=== PATIENT | female | born 1935 | race Caucasian/White ===

== ENCOUNTER 2017-01-18 14:32 | Inpatient (IN) | payer MEDICARE, OTHER ==
[2017-01-18 16:35] LABS: HEMATOCRIT 41.4 % (36.0-47.0); HEMOGLOBIN 13.8 g/dL (12.0-15.5); MEAN CORPUSCULAR HEMOGLOBIN 29.9 pg (27.0-33.4); MEAN CORPUSCULAR HGB CONC 33.3 g/dL (32.0-36.0); MEAN CORPUSCULAR VOLUME 90 fl (80-97); RED BLOOD COUNT 4.61 10^6/uL (3.72-5.28); RED CELL DISTRIBUTION WIDTH 13.6 % (11.5-14.0); WHITE BLOOD COUNT 13.2 10^3/uL (4.0-10.5)
[2017-01-18 16:50] LABS: ALANINE AMINOTRANSFERASE 19 U/L (9-52); ALBUMIN 3.9 g/dL (3.5-5.0); ALKALINE PHOSPHATASE 80 U/L (38-126); ANION GAP 14 (5-19); ASPARTATE AMINO TRANSFERASE 33 U/L (14-36); BILIRUBIN,DIRECT 0.4 mg/dL (0.0-0.4); BILIRUBIN,TOTAL 1.3 mg/dL (0.2-1.3); BLOOD UREA NITROGEN 23 mg/dL (7-20); CALCIUM 9.7 mg/dL (8.4-10.2); CARBON DIOXIDE 29 mmol/L (22-30); CHLORIDE 98 mmol/L (98-107); GLUCOSE 146 mg/dL (75-110); POTASSIUM 3.7 mmol/L (3.6-5.0); SODIUM 141.3 mmol/L (137-145); TOTAL PROTEIN 7.6 g/dL (6.3-8.2)
--- NOTE | 2017-01-18 18:35 | EKG REPORT ---
SEVERITY:- ABNORMAL ECG - ATRIAL FIBRILLATION, V-RATE 71-113 CONSIDER ANTEROSEPTAL INFARCT : Confirmed by: Hitesh Singh MD 18-Jan-2017 18:33:58
[2017-01-18] MEDS ORDERED: HYDROCODONE/ACETAMINOPHEN 5-325 MG TABLET PO PRN (20:31)
[2017-01-18] MEDS: HYDROCODONE/ACETAMINOPHEN 10-325 MG TABLET PO PRN (20:41)
[2017-01-18] MEDS: LEVOFLOXACIN 750 MG/D5W RTU 750 MG/150 ML RTUPB IV SCH (20:41)
[2017-01-18] MEDS ORDERED: 1/2 NORMAL SALINE 1,000 ML IV PRN (21:55)
[2017-01-18] MEDS ORDERED: HYDROCODONE/ACETAMINOPHEN 10-325 MG TABLET PO SCH (22:00)
[2017-01-19 00:17] LABS: APPEARANCE,URINE SLIGHTLY-CLOUDY; BILIRUBIN,URINE NEGATIVE (NEGATIVE); GLUCOSE, URINE 50 mg/dL (NEGATIVE); KETONES,URINE NEGATIVE (NEGATIVE); LEUKOCYTE ESTERASE,URINE TRACE (NEGATIVE); NITRITE,URINE POSITIVE (NEGATIVE); PROTEIN,URINE 100 mg/dL (NEGATIVE); URINE SPECIFIC GRAVITY 1.024
[2017-01-19] MEDS: HYDROCODONE/ACETAMINOPHEN 10-325 MG TABLET PO PRN ×2 (03:51→14:57)
[2017-01-19] MEDS: LEVOTHYROXINE SODIUM 0.088 MG TABLET PO SCH (06:46)
[2017-01-19] MEDS ORDERED: ENOXAPARIN SODIUM INJ 40 MG/0.4 ML DISP.SYRIN SUBCUT SCH (08:00)
[2017-01-19] MEDS ORDERED: MORPHINE SULFATE 10 MG/ML INJ ONE (09:28)
[2017-01-19] MEDS ORDERED: (PENDING PHARMACY ID) (Alprazolam [Alprazolam] 1 MG) PO SCH (10:00)
[2017-01-19] MEDS ORDERED: (PENDING PHARMACY ID) (Metoprolol Succinate [Toprol Xl 200 Mg Tablet] 200 MG) PO SCH (10:00)
[2017-01-19] MEDS: ENOXAPARIN SODIUM INJ 40 MG/0.4 ML DISP.SYRIN SUBCUT SCH (11:19)
[2017-01-19] MEDS: ALPRAZOLAM 0.5 MG TABLET PO SCH ×2 (11:22→18:36)
[2017-01-19] MEDS: METOPROLOL SUCCINATE 50 MG TAB.SR.24H PO SCH (11:23)
[2017-01-19] MEDS: METRONIDAZOLE 500 MG/NS RTU 100 ML IV SCH ×2 (11:57→22:08)
--- NOTE | 2017-01-19 18:23 | PDOC H&P ---
History of Present Illness Admission Date/PCP: 01/18/17 14:32 NIKKI MCCULLOUGH MD History of Present Illness: GIUSEPPE RINCON is a 81 year old female, with a history of hypertension, morbid obesity, BMI of 44.7, she came to the office with her daughter because of vomiting and right flank pain. She was seen and evaluated in the office, she looks sick and she does not look herself. On examination of the abdomen there was tenderness on palpation of the right flank and also the upper abdomen, because of history of recurrent UTI ,I was concerned she may have acute pyelonephritis, I was also concerned because of the tenderness in the right upper abdomen. She was admitted directly from the office to the hospital for evaluation. CAT scan of the abdomen and pelvis with no IV contrast was ordered , oral contrast was administered, it showed distended gallbladder that measures 50 cm in length also found was fat stranding in the right upper quadrant no stone was found. Because of these findings on the CT scan of the abdomen and pelvis I suspect that she may have cholecystitis so ultrasound of the gallbladder was ordered and it showed distended gallbladder with stones because of concern for acute cholecystitis HIDA scan was done on it was positive for cholecystitis there was non visualization of the gallbladder. The urinalysis was also abnormal suggesting UTI Past Medical History Cardiac Medical History: Reports: Atrial Fibrillation, Hyperlipidema Pulmonary Medical History: Reports: Chronic Obstructive Pulmonary Disease (COPD) Endocrine Medical History: Reports: Hypothyroidism GI Medical History: Reports: Gastroesophageal Reflux Disease, Hiatal Hernia, Other - morbid obesity Musculoskeltal Medical History: Reports: Arthritis Psychiatric Medical History: Reports: Depression Past Surgical History Past Surgical History: Reports: Appendectomy, Orthopedic Surgery - bilat knee, Tonsillectomy, Tubal Ligation Social History Smoking Status: Never Smoker Frequency of Alcohol Use: None Hx Recreational Drug Use: No Hx Prescription Drug Abuse: No Family History Family History: Reviewed & Not Pertinent Parental Family History Reviewed: Yes Children Family History Reviewed: Yes Sibling(s) Family History Reviewed.: Yes Medication/Allergy Home Medications: Alprazolam 1 mg PO BID 08/22/12 Levothyroxine Sodium [Synthroid 0.088 mg Tablet] 88 mcg PO 0600 08/22/12 Metoprolol Succinate [Toprol XL 200 mg Tablet] 200 mg PO DAILY 07/17/14 Hydrocodone Bit/Acetaminophen [Hydrocodon-Acetaminophn 10-325] 10 - 325 mg PO Q8 PRN 01/18/17 Allergies/Adverse Reactions: meperidine HCl [From Demerol] Allergy (Severe, Verified 08/22/12 17:56) Review of Systems Constitutional: PRESENT: anorexia Eyes: ABSENT: visual disturbances Ears: ABSENT: hearing changes Cardiovascular: ABSENT: chest pain, dyspnea on exertion, edema, orthropnea, palpitations Respiratory: ABSENT: cough, hemoptysis Gastrointestinal: PRESENT: abdominal pain, vomiting Genitourinary: ABSENT: dysuria, hematuria Musculoskeletal: ABSENT: joint swelling Integumentary: ABSENT: rash, wounds Neurological: ABSENT: abnormal gait, abnormal speech, confusion, dizziness, focal weakness, syncope Psychiatric: ABSENT: anxiety, depression, homidical ideation, suicidal ideation Endocrine: ABSENT: cold intolerance, heat intolerance, menstrual abnormalities, polydipsia, polyuria Hematologic/Lymphatic: ABSENT: easy bleeding, easy bruising, lymphadenopathy Physical Exam Vital Signs: Temp Pulse Resp BP Pulse Ox 98.7 F 101 H 20 174/103 H 90 L 01/19/17 15:51 01/19/17 15:51 01/19/17 15:51 01/19/17 15:51 01/19/17 15:51 Intake & Output 01/18/17 01/19/17 01/20/17 06:59 06:59 06:59 Intake Total 480 650 Balance 480 650 Weight 121.8 kg General appearance: PRESENT: mild distress Head exam: PRESENT: atraumatic, normocephalic Eye exam: PRESENT: conjunctiva pink, EOMI, PERRLA Neck exam: PRESENT: full ROM Respiratory exam: PRESENT: clear to auscultation mary Cardiovascular exam: PRESENT: RRR. ABSENT: diastolic murmur, rubs, systolic murmur Vascular exam: PRESENT: normal capillary refill GI/Abdominal exam: PRESENT: normal bowel sounds, soft, tenderness Rectal exam: PRESENT: deferred Neurological exam: PRESENT: alert, awake, oriented to person, oriented to place , oriented to time, oriented to situation, CN II-XII grossly intact Psychiatric exam: PRESENT: appropriate affect, normal mood Skin exam: PRESENT: dry, intact, warm Results Laboratory Results: 01/18/17 16:20 01/18/17 16:20 01/18/17 22:50 Urine Color YELLOW Urine Appearance SLIGHTLY-CLOUDY Urine pH 6.0 Ur Specific [place] 1.024 Urine Protein 100 H Urine Glucose (UA) 50 H Urine Ketones NEGATIVE Urine Blood NEGATIVE Urine Nitrite POSITIVE H Ur Leukocyte Esterase TRACE H Urine WBC (Auto) 84 Urine RBC (Auto) 11 Impressions: Abdomen Ultrasound 01/18/17 00:00 IMPRESSION: DISTENDED GALLBLADDER WITH GALLSTONES. DILATED COMMON BILE DUCT. FURTHER EVALUATION WITH ERCP OR MRCP SHOULD BE CONSIDERED. Abdomen/Pelvis CT 01/18/17 00:00 IMPRESSION: Significantly distended gallbladder measuring greater than 15 cm in length. Mild fat stranding is present in the right upper quadrant. No calcified stones are identified. No biliary dilatation is identified. No evidence for bowel obstruction. Chest X-Ray 01/18/17 15:45 IMPRESSION: No acute infiltrates. Hepatobiliary Scan Nuclear Medicine 01/19/17 00:00 IMPRESSION: Nonvisualization of the gallbladder. Findings worrisome for acute cholecystitis. Assessment & Plan - Diagnosis (1) Acute calculous cholecystitis Is this a current diagnosis for this admission?: YesPlan: She is given IV antibiotic with Levaquin and Flagyl and consultation will be requested from surgery (2) Urinary tract infection Qualifiers: Urinary tract infection type: acute pyelonephritis Qualified Code(s) : N10 - Acute pyelonephritis Is this a current diagnosis for this admission?: YesPlan: Start IV antibiotic (3) Chronic atrial fibrillation Is this a current diagnosis for this admission?: Yes (4) Morbid obesity Qualifiers: Obesity type: due to excess calories Qualified Code(s): E66.01 - Morbid (severe) obesity due to excess calories Is this a current diagnosis for this admission?: Yes
--- NOTE | 2017-01-19 19:05 | PDOC PROGRESS REPORT ---
Subjective Progress Note for:: 01/19/17 Subjective:: Patient was admitted yesterday directly from the office when she presented to the office with vomiting and abdominal pain evaluation confirm acute calculus cholecystitis and UTI the case was discussed with the surgeon Physical Exam Vital Signs: Temp Pulse Resp BP Pulse Ox 98.7 F 101 H 20 174/103 H 90 L 01/19/17 15:51 01/19/17 15:51 01/19/17 15:51 01/19/17 15:51 01/19/17 15:51 Intake & Output 01/18/17 01/19/17 01/20/17 06:59 06:59 06:59 Intake Total 480 760 Balance 480 760 Weight 121.8 kg General appearance: PRESENT: mild distress Eye exam: PRESENT: PERRLA Respiratory exam: PRESENT: clear to auscultation mary Cardiovascular exam: PRESENT: +S1, +S2 GI/Abdominal exam: PRESENT: tenderness Neurological exam: PRESENT: alert Results Laboratory Results: 01/18/17 16:20 01/18/17 16:20 01/18/17 22:50 Urine Color YELLOW Urine Appearance SLIGHTLY-CLOUDY Urine pH 6.0 Ur Specific [place] 1.024 Urine Protein 100 H Urine Glucose (UA) 50 H Urine Ketones NEGATIVE Urine Blood NEGATIVE Urine Nitrite POSITIVE H Ur Leukocyte Esterase TRACE H Urine WBC (Auto) 84 Urine RBC (Auto) 11 Impressions: Abdomen Ultrasound 01/18/17 00:00 IMPRESSION: DISTENDED GALLBLADDER WITH GALLSTONES. DILATED COMMON BILE DUCT. FURTHER EVALUATION WITH ERCP OR MRCP SHOULD BE CONSIDERED. Abdomen/Pelvis CT 01/18/17 00:00 IMPRESSION: Significantly distended gallbladder measuring greater than 15 cm in length. Mild fat stranding is present in the right upper quadrant. No calcified stones are identified. No biliary dilatation is identified. No evidence for bowel obstruction. Chest X-Ray 01/18/17 15:45 IMPRESSION: No acute infiltrates. Hepatobiliary Scan Nuclear Medicine 01/19/17 00:00 IMPRESSION: Nonvisualization of the gallbladder. Findings worrisome for acute cholecystitis. Assessment & Plan - Diagnosis (1) Acute calculous cholecystitis Is this a current diagnosis for this admission?: YesPlan: Continue IV antibiotic consultation from surgery is obtained, she may need a central line because of difficult IV access (2) Urinary tract infection Qualifiers: Urinary tract infection type: acute pyelonephritis Qualified Code(s) : N10 - Acute pyelonephritis Is this a current diagnosis for this admission?: Yes (3) Chronic atrial fibrillation Is this a current diagnosis for this admission?: Yes (4) Morbid obesity Qualifiers: Obesity type: due to excess calories Qualified Code(s): E66.01 - Morbid (severe) obesity due to excess calories Is this a current diagnosis for this admission?: Yes
--- NOTE | 2017-01-19 21:28 | OPERATIVE REPORT E ---
Operative Report NAME: GIUSEPPE RINCON : 1935 AGE: 81Y DATE OF SURGERY: 01/19/2017 ROOM: 316 PREOPERATIVE DIAGNOSIS: Inadequate peripheral venous access. POSTOPERATIVE DIAGNOSIS: Inadequate peripheral venous access. OPERATION: Insertion of triple-lumen catheter into the right external jugular vein. SURGEON: ALLIE MITCHELL M.D. ANESTHESIA: Local with 1% Xylocaine. COMPLICATIONS: None. CONDITION: Stable. PROCEDURE: After appropriate consent was obtained, the patient was placed in the Trendelenburg position, and the external jugular vein was easily visualized. The right neck was prepped and draped in the usual sterile manner, and then timeout was achieved. We then injected lidocaine just proximal to the external jugular vein and made a small wheal. The scalpel was then used to make a stab wound through this wheal, and then the right external jugular vein was accessed percutaneously. After venous blood was noted in the syringe, the syringe was removed, and the guidewire was advanced through the needle into the external and then into the internal and then into the brachiocephalic and ultimately into the superior vena cava presumably. We then passed a vein dilator over the guidewire. Then using the sterile Seldinger technique, the triple-lumen catheter was advanced over the guidewire as the guidewire was removed. Catheter was advanced to the 20 cm sahara. There was good antegrade and retrograde flow through each lumen, and each was flushed with saline. The catheter was then secured in the usual manner using 2-0 silk. Then the Biopatch and the Tegaderm were then placed appropriately. Portable chest x-ray has been requested. DICTATING PHYSICIAN: ALLIE MITCHELL M.D. [id number] PHY#: [id number] ID: [id number] JOB#: [id number] ACCT: [id number] cc:ALLIE MITCHELL M.D. >
[2017-01-19] MEDS: HYDROMORPHONE HCL INJ/PF 2 MG/ML AMPULE IV PRN (22:09)
[2017-01-20] MEDS: METRONIDAZOLE 500 MG/NS RTU 100 ML IV SCH ×5 (01:00→23:23)
[2017-01-20 03:02] LABS: ARTERIAL BLOOD BASE EXCESS 4.6 mmol/L; ARTERIAL BLOOD O2 SATURATION 87.7 % (94-98)
[2017-01-20] MEDS: LEVOTHYROXINE SODIUM 0.088 MG TABLET PO SCH (06:13)
[2017-01-20] MEDS: ENOXAPARIN SODIUM INJ 40 MG/0.4 ML DISP.SYRIN SUBCUT SCH (07:54)
[2017-01-20 08:47] LABS: HEMATOCRIT 37.3 % (36.0-47.0); HEMOGLOBIN 12.3 g/dL (12.0-15.5); HGB HCT DIFFERENCE -0.4; MEAN CORPUSCULAR HEMOGLOBIN 30.1 pg (27.0-33.4); MEAN CORPUSCULAR HGB CONC 32.9 g/dL (32.0-36.0); MEAN CORPUSCULAR VOLUME 91 fl (80-97); RED BLOOD COUNT 4.08 10^6/uL (3.72-5.28); WHITE BLOOD COUNT 16.7 10^3/uL (4.0-10.5)
[2017-01-20 09:04] LABS: ALANINE AMINOTRANSFERASE 27 U/L (9-52); ALBUMIN 2.9 g/dL (3.5-5.0); ALKALINE PHOSPHATASE 79 U/L (38-126); ANION GAP 11 (5-19); ASPARTATE AMINO TRANSFERASE 31 U/L (14-36); BILIRUBIN,DIRECT 0.5 mg/dL (0.0-0.4); BILIRUBIN,TOTAL 1.1 mg/dL (0.2-1.3); BLOOD UREA NITROGEN 29 mg/dL (7-20); CARBON DIOXIDE 29 mmol/L (22-30); CHLORIDE 96 mmol/L (98-107); GLUCOSE 101 mg/dL (75-110); POTASSIUM 3.4 mmol/L (3.6-5.0); SODIUM 136.4 mmol/L (137-145)
[2017-01-20 09:26] LABS: BASOPHILS % (MANUAL) 0 % (0-2); EOSINOPHILS % (MANUAL) 0 % (0-6); LYMPHOCYTES % (MANUAL) 4 % (13-45); TOTAL CELLS COUNTED 100
[2017-01-20 09:29] LABS: ANISOCYTOSIS SLIGHT; TOXIC GRANULATION 1+
[2017-01-20] MEDS: ALPRAZOLAM 0.5 MG TABLET PO SCH ×2 (09:29→17:34)
[2017-01-20] MEDS: METOPROLOL SUCCINATE 50 MG TAB.SR.24H PO SCH (09:31)
[2017-01-20] MEDS: HYDROCODONE/ACETAMINOPHEN 10-325 MG TABLET PO PRN ×2 (12:09→18:47)
[2017-01-20] MEDS: IPRATROPIUM/ALBUTEROL 0.5-2.5 MG/3 ML AMPUL NEB PRN ×2 (12:25→17:43)
[2017-01-20 16:05] LABS: PARTIAL THROMBOPLASTIN TIME 33.6 SEC (23.5-35.8); PROTHROMBIN TIME 15.9 SEC (11.4-15.4)
--- NOTE | 2017-01-20 16:49 | PDOC PROGRESS REPORT ---
Subjective Progress Note for:: 01/20/17 Subjective:: Patient was seen by the bedside, last night she had episode of acute wheezing and ABG was done on FiO2 of 1 L, pH 7.39, PCO2 54.8 bicarbonate 30.8, this is consistent with acute hypoxemic respiratory failure and mixed acid-base disorder PO2 54.8. She was seen by the surgeon regarding the acute calculus cholecystitis and the plan is to have catheter directed cholecystotomy. Urine culture is growing gram-negative rods with significant colonic count more than 100,000/ml. Physical Exam Vital Signs: Temp Pulse Resp BP Pulse Ox 98.1 F 90 24 H 143/91 H 95 01/20/17 11:34 01/20/17 12:25 01/20/17 12:25 01/20/17 11:34 01/20/17 12:25 Intake & Output 01/19/17 01/20/17 01/21/17 06:59 06:59 06:59 Intake Total 480 1490 1000 Balance 480 1490 1000 Weight 121.8 kg 123.1 kg General appearance: PRESENT: no acute distress, well-developed, well-nourished Head exam: PRESENT: atraumatic, normocephalic Eye exam: PRESENT: PERRLA Mouth exam: PRESENT: moist, tongue midline Neck exam: PRESENT: full ROM Respiratory exam: PRESENT: wheezes Cardiovascular exam: PRESENT: RRR, +S2 Murmur grade: 3 Pulses: PRESENT: normal dorsalis pedis pul, +2 pedal pulses bilateral Vascular exam: PRESENT: normal capillary refill GI/Abdominal exam: PRESENT: normal bowel sounds, soft, tenderness Rectal exam: PRESENT: deferred Neurological exam: PRESENT: alert, awake, oriented to person, oriented to place , oriented to time, oriented to situation, CN II-XII grossly intact. ABSENT: motor sensory deficit Psychiatric exam: PRESENT: appropriate affect, normal mood Skin exam: PRESENT: dry, intact, warm Results Laboratory Results: 01/20/17 08:08 01/20/17 08:08 01/20/17 01/20/17 01/20/17 02:50 08:08 08:08 WBC 16.7 H RBC 4.08 Hgb 12.3 Hct 37.3 MCV 91 MCH 30.1 MCHC 32.9 RDW 14.0 Plt Count 151 Seg Neutrophils % Not Reportable Lymphocytes % Not Reportable Monocytes % Not Reportable Eosinophils % Not Reportable Basophils % Not Reportable Absolute Neutrophils Not Reportable Absolute Lymphocytes Not Reportable Absolute Monocytes Not Reportable Absolute Eosinophils Not Reportable Absolute Basophils Not Reportable Carbonic Acid 1.57 H HCO3/H2CO3 Ratio 19:1 ABG pH 7.39 ABG pCO2 52.2 H ABG pO2 54.8 L ABG HCO3 30.8 H ABG O2 Saturation 87.7 L ABG Base Excess 4.6 FiO2 1 L Sodium 136.4 L Potassium 3.4 L Chloride 96 L Carbon Dioxide 29 Anion Gap 11 BUN 29 H Creatinine 0.60 Est GFR ( Amer) > 60 Est GFR (Non-Af Amer) > 60 Glucose 101 Calcium 9.0 Total Bilirubin 1.1 AST 31 ALT 27 Alkaline Phosphatase 79 Total Protein 6.0 L Albumin 2.9 L Impressions: Abdomen Ultrasound 01/18/17 00:00 IMPRESSION: DISTENDED GALLBLADDER WITH GALLSTONES. DILATED COMMON BILE DUCT. FURTHER EVALUATION WITH ERCP OR MRCP SHOULD BE CONSIDERED. Abdomen/Pelvis CT 01/18/17 00:00 IMPRESSION: Significantly distended gallbladder measuring greater than 15 cm in length. Mild fat stranding is present in the right upper quadrant. No calcified stones are identified. No biliary dilatation is identified. No evidence for bowel obstruction. Hepatobiliary Scan Nuclear Medicine 01/19/17 00:00 IMPRESSION: Nonvisualization of the gallbladder. Findings worrisome for acute cholecystitis. Chest X-Ray 01/19/17 20:37 IMPRESSION: Central line with its tip at the level of the right atrium. No pneumothorax is seen. Other findings as noted above Assessment & Plan - Diagnosis (1) Acute calculous cholecystitis Is this a current diagnosis for this admission?: YesPlan: She is to have catheter directed cholecystostomy (2) Urinary tract infection Qualifiers: Urinary tract infection type: acute pyelonephritis Qualified Code(s) : N10 - Acute pyelonephritis Is this a current diagnosis for this admission?: YesPlan: Continue IV antibiotic urine culture is growing gram-negative rods with significant colony count (3) Chronic atrial fibrillation Is this a current diagnosis for this admission?: Yes (4) Morbid obesity Qualifiers: Obesity type: due to excess calories Qualified Code(s): E66.01 - Morbid (severe) obesity due to excess calories Is this a current diagnosis for this admission?: Yes (5) Acute hypoxemic respiratory failure Is this a current diagnosis for this admission?: YesPlan: She is supported with nasal cannula 2 L (6) Reactive airway disease with wheezing with acute exacerbation Is this a current diagnosis for this admission?: YesPlan: Patient is treated with bronchodilators, DuoNeb every 4 hours as needed (7) Chronic obstructive pulmonary disease (COPD) Qualifiers: COPD type: unspecified COPD Qualified Code(s): J44.9 - Chronic obstructive pulmonary disease, unspecified Is this a current diagnosis for this admission?: YesPlan: Continue bronchodilator,
[2017-01-20] MEDS: LEVOFLOXACIN 750 MG/D5W RTU 750 MG/150 ML RTUPB IV SCH (17:34)
[2017-01-20] MEDS: ONDANSETRON HCL INJ/PF 4 MG/2 ML SDV IV PRN (18:46)
[2017-01-20] MEDS: HYDROMORPHONE HCL INJ/PF 2 MG/ML AMPULE IV PRN (21:15)
[2017-01-21] MEDS: METRONIDAZOLE 500 MG/NS RTU 100 ML IV SCH ×3 (05:02→19:31)
[2017-01-21] MEDS: LEVOTHYROXINE SODIUM 0.088 MG TABLET PO SCH (05:05)
[2017-01-21 06:50] LABS: HEMATOCRIT 34.2 % (36.0-47.0); HEMOGLOBIN 11.3 g/dL (12.0-15.5); HGB HCT DIFFERENCE -0.3; MEAN CORPUSCULAR HEMOGLOBIN 29.9 pg (27.0-33.4); MEAN CORPUSCULAR VOLUME 91 fl (80-97); RED BLOOD COUNT 3.78 10^6/uL (3.72-5.28); RED CELL DISTRIBUTION WIDTH 14.2 % (11.5-14.0); WHITE BLOOD COUNT 14.4 10^3/uL (4.0-10.5)
[2017-01-21 06:53] LABS: ALBUMIN 2.4 g/dL (3.5-5.0); ANION GAP 7 (5-19); ASPARTATE AMINO TRANSFERASE 21 U/L (14-36); BILIRUBIN,TOTAL 0.6 mg/dL (0.2-1.3); BLOOD UREA NITROGEN 36 mg/dL (7-20); CALCIUM 8.8 mg/dL (8.4-10.2); CARBON DIOXIDE 32 mmol/L (22-30); CHLORIDE 95 mmol/L (98-107); POTASSIUM 3.6 mmol/L (3.6-5.0); SODIUM 134.2 mmol/L (137-145)
[2017-01-21 07:21] LABS: BASOPHILS % (MANUAL) 0 % (0-2); EOSINOPHILS % (MANUAL) 0 % (0-6); LYMPHOCYTES % (MANUAL) 1 % (13-45); TOTAL CELLS COUNTED 100
[2017-01-21 07:22] LABS: TOXIC GRANULATION 1+
[2017-01-21 07:23] LABS: TOXIC VACUOLATION PRESENT
[2017-01-21 07:24] LABS: ANISOCYTOSIS SLIGHT; OVALOCYTES SLIGHT
[2017-01-21 07:25] LABS: ALANINE AMINOTRANSFERASE 27 U/L (9-52); ALKALINE PHOSPHATASE 73 U/L (38-126); BILIRUBIN,DIRECT 0.2 mg/dL (0.0-0.4); GLUCOSE 92 mg/dL (75-110); TOTAL PROTEIN 5.3 g/dL (6.3-8.2)
[2017-01-21 07:42] LABS: PROTHROMBIN TIME 15.5 SEC (11.4-15.4)
[2017-01-21] MEDS: HYDROMORPHONE HCL INJ/PF 2 MG/ML AMPULE IV PRN ×2 (08:22→22:11)
[2017-01-21] MEDS: ONDANSETRON HCL INJ/PF 4 MG/2 ML SDV IV PRN (08:23)
--- NOTE | 2017-01-21 10:07 | PDOC PROGRESS REPORT ---
Subjective Progress Note for:: 01/21/17 Subjective:: Still having upper abdominal pain Physical Exam Vital Signs: Temp Pulse Resp BP Pulse Ox 98.6 F 89 16 130/81 H 93 01/21/17 07:49 01/21/17 07:49 01/21/17 07:49 01/21/17 07:49 01/21/17 07:49 Intake & Output 01/20/17 01/21/17 01/22/17 06:59 06:59 06:59 Intake Total 1490 2544 Balance 1490 2544 Weight 123.1 kg 124 kg General appearance: PRESENT: cooperative Respiratory exam: PRESENT: other - Scattered wheeze Cardiovascular exam: PRESENT: irregular rhythm GI/Abdominal exam: PRESENT: other - Soft, mildly distended, focal tenderness in the right upper quadrant with positive Pacheco sign. Results Laboratory Results: 01/21/17 06:00 01/21/17 06:00 01/21/17 01/21/17 06:00 06:00 WBC 14.4 H RBC 3.78 Hgb 11.3 L Hct 34.2 L MCV 91 MCH 29.9 MCHC 33.0 RDW 14.2 H Plt Count 121 L Seg Neutrophils % Not Reportable Lymphocytes % Not Reportable Monocytes % Not Reportable Eosinophils % Not Reportable Basophils % Not Reportable Absolute Neutrophils Not Reportable Absolute Lymphocytes Not Reportable Absolute Monocytes Not Reportable Absolute Eosinophils Not Reportable Absolute Basophils Not Reportable Sodium 134.2 L Potassium 3.6 Chloride 95 L Carbon Dioxide 32 H Anion Gap 7 BUN 36 H Creatinine 0.80 Est GFR ( Amer) > 60 Est GFR (Non-Af Amer) > 60 Glucose 92 Calcium 8.8 Total Bilirubin 0.6 AST 21 ALT 27 Alkaline Phosphatase 73 Total Protein 5.3 L Albumin 2.4 L 01/18/17 22:50 Catheterized Urine Urine Culture - Final Escherichia Coli Impressions: Abdomen Ultrasound 01/18/17 00:00 IMPRESSION: DISTENDED GALLBLADDER WITH GALLSTONES. DILATED COMMON BILE DUCT. FURTHER EVALUATION WITH ERCP OR MRCP SHOULD BE CONSIDERED. Abdomen/Pelvis CT 01/18/17 00:00 IMPRESSION: Significantly distended gallbladder measuring greater than 15 cm in length. Mild fat stranding is present in the right upper quadrant. No calcified stones are identified. No biliary dilatation is identified. No evidence for bowel obstruction. Hepatobiliary Scan Nuclear Medicine 01/19/17 00:00 IMPRESSION: Nonvisualization of the gallbladder. Findings worrisome for acute cholecystitis. Chest X-Ray 01/19/17 20:37 IMPRESSION: Central line with its tip at the level of the right atrium. No pneumothorax is seen. Other findings as noted above Assessment & Plan - Diagnosis (1) Acute calculous cholecystitis Is this a current diagnosis for this admission?: YesPlan: Patient has comorbidities that preclude safe surgical intervention therefore she will undergo cholecystostomy tube placement today. Patient's son was present and understands the rationale.
[2017-01-21] MEDS ORDERED: MIDAZOLAM 2 MG/2 ML INJ ONE (10:14)
[2017-01-21] MEDS ORDERED: FENTANYL CITRATE INJ/PF 100 MCG/2 ML AMPUL ONE (10:15)
[2017-01-21] MEDS: IPRATROPIUM/ALBUTEROL 0.5-2.5 MG/3 ML AMPUL NEB PRN ×2 (10:20→16:10)
--- NOTE | 2017-01-21 11:53 | CONSULTATION REPORT E ---
Consultation Report NAME: GIUSEPPE RINCON : 1935 AGE: 81Y DATE: 01/19/2017 316 A TO: ALLIE MITCHELL M.D. FROM: NIKKI MCUCLLOUGH M.D. Requesting Physician REASON FOR CONSULTATION: Markedly distended gallbladder suspicious for acalculous cholecystitis and gallbladder dyskinesia. HISTORY OF PRESENT ILLNESS: This is an 81-year-old female with history of hypertension, morbid obesity, who presented to the office of Dr. Mccullough because of vomiting and right flank and right upper quadrant pain. Patient was known in the office to appear ill and because of this she was examined and she was found to have tenderness in the right flank and right upper quadrant. It was his concern that she may have acute pyelonephritis because of the tenderness in the flank and right upper abdomen. A CT scan of the pelvis was ordered with oral contrast and it showed a markedly distended gallbladder which measured 50 cm in length with in the right upper quadrant. The ultrasound was ordered and it also noted a marked distended gallbladder with stones and HIDA scan also was done which revealed a non of the gallbladder consistent with acute cholecystitis and gallbladder dyskinesia. For this reason, surgical consultation was requested. PAST MEDICAL HISTORY: Patient has a history of: 1. Atrial fibrillation. 2. Hyperlipidemia. 3. Chronic obstructive pulmonary disease. 4. Hypothyroidism. 5. Gastroesophageal reflux disease. 6. Hiatal hernia. 7. Morbid obesity. 8. History of arthritis. 9. Depression. PAST SURGICAL HISTORY: Includes: 1. Appendectomy. 2. Bilateral knee surgery. 3. Tonsillectomy. 4. Tubal ligation. MEDICATIONS AT HOME: Include: 1. Xanax 1 mg p.o. b.i.d. 2. Synthroid 0.88 mg tablets daily. 3. Toprol 20 mg p.o. daily. 4. Hydrocodone 10/325 p.o. q.8 p.r.n. ALLERGIES: Include DEMEROL. REVIEW OF SYSTEMS: CONSTITUTIONAL: Patient has history of constitutional symptoms. Patient has anorexia and feels ill. HEENT: Patient has no symptoms referable to the eyes, ears, nose or throat. CARDIOVASCULAR: Patient has no symptoms referable to the cardiovascular system. RESPIRATORY: Patient has cough, hemoptysis and shortness of breath. GASTROINTESTINAL: Abdominal pain and vomiting as in history of present illness. GENITOURINARY: Patient denies any symptoms referable to this system. MUSCULOSKELETAL: Other than arthritis. INTEGUMENTARY: Patient has no neurological symptoms, no psychiatric, endocrine, lymphatic, hematologic system symptoms. PHYSICAL EXAMINATION: GENERAL: Examination reveals an 81-year-old female who is morbidly obese who is normally developed, who is short of breath with conversation who appears in mild distress. VITAL SIGNS: Patient's temperature is 98.7, pulse is 101, respirations 20, blood pressure 174/103. Saturations are 90% on room air. HEENT: The head is normocephalic, atraumatic. PERRLA, EOMI. There is no conjunctival pallor or scleral icterus. NECK: Supple without nodes, masses, thyroid, JVD or bruits. Trachea is midline. RESPIRATORY: Clear to percussion and auscultation. There is minimal expiratory wheezing. CARDIOVASCULAR: The pulses are regular without murmurs or gallops. ABDOMEN: Obese, soft with normal bowel sounds. The patient has mild to moderate tenderness in the right upper quadrant with mild guarding. Negative Pacheco's sign is noted. RECTAL: Exam is deferred. LABORATORY DATA: Reveals a white count of 13.2 with a normal hemoglobin and hematocrit. Patient's electrolytes are essentially within normal limits with a mildly elevated glucose at 146. Urinalysis within normal limits. IMPRESSION: 1. CHOLELITHIASIS. 2. BILIARY COLIC. 3. GALLBLADDER DYSKINESIA. RECOMMENDATIONS: Given the patient's multiple medical problems, particularly her respiratory status with COPD, patient represents surgical risk, percutaneous cholecystostomy tube is the recommended approach to the patient and the patient will be scheduled for such in the a.m. DICTATING PHYSICIAN: ALLIE MITCHELL M.D. [id number] PHY#: [id number] ID: [id number] JOB#: [id number] ACCT: [id number] cc:ALLIE MITCHELL M.D. >
[2017-01-21] MEDS: BISACODYL 10 MG SUPP.RECT PR SCH (12:38)
[2017-01-21] MEDS: ALPRAZOLAM 0.5 MG TABLET PO SCH ×2 (12:38→17:34)
[2017-01-21] MEDS: LEVOFLOXACIN 750 MG/D5W RTU 750 MG/150 ML RTUPB IV SCH (17:33)
[2017-01-21] MEDS: METOPROLOL SUCCINATE 50 MG TAB.SR.24H PO SCH (17:34)
--- NOTE | 2017-01-21 19:34 | PDOC PROGRESS REPORT ---
Subjective Progress Note for:: 01/21/17 Subjective:: Patient was seen by the bedside, she had cholecystostomy tube placed today under CT guidance. She developed acute hypoxemic respiratory failure requiring BiPAP machine to support breathing. She also positive d-dimer, CT chest was done and it was negative for pulmonary embolism. The urine culture grew E. coli resistant to Levaquin, the Levaquin was discontinued and she is started on ceftazidime, the ceftazidime have a good DANA. Physical Exam Vital Signs: Temp Pulse Resp BP Pulse Ox 99.5 F 99 18 106/71 93 01/21/17 15:17 01/21/17 16:10 01/21/17 16:10 01/21/17 15:17 01/21/17 16:10 Intake & Output 01/20/17 01/21/17 01/22/17 06:59 06:59 06:59 Intake Total 1490 2544 1020 Balance 1490 2544 1020 Weight 123.1 kg 124 kg 124 kg General appearance: PRESENT: severe distress Eye exam: PRESENT: PERRLA Respiratory exam: PRESENT: wheezes Cardiovascular exam: PRESENT: +S1, +S2 Murmur grade: 3 GI/Abdominal exam: PRESENT: tenderness, other - There is a cholecystostomy tube in place Neurological exam: PRESENT: alert, CN II-XII grossly intact Results Laboratory Results: 01/21/17 06:00 01/21/17 06:00 01/21/17 01/21/17 06:00 06:00 WBC 14.4 H RBC 3.78 Hgb 11.3 L Hct 34.2 L MCV 91 MCH 29.9 MCHC 33.0 RDW 14.2 H Plt Count 121 L Seg Neutrophils % Not Reportable Lymphocytes % Not Reportable Monocytes % Not Reportable Eosinophils % Not Reportable Basophils % Not Reportable Absolute Neutrophils Not Reportable Absolute Lymphocytes Not Reportable Absolute Monocytes Not Reportable Absolute Eosinophils Not Reportable Absolute Basophils Not Reportable Sodium 134.2 L Potassium 3.6 Chloride 95 L Carbon Dioxide 32 H Anion Gap 7 BUN 36 H Creatinine 0.80 Est GFR ( Amer) > 60 Est GFR (Non-Af Amer) > 60 Glucose 92 Calcium 8.8 Total Bilirubin 0.6 AST 21 ALT 27 Alkaline Phosphatase 73 Total Protein 5.3 L Albumin 2.4 L 01/18/17 22:50 Catheterized Urine Urine Culture - Final Escherichia Coli Impressions: Abdomen Ultrasound 01/18/17 00:00 IMPRESSION: DISTENDED GALLBLADDER WITH GALLSTONES. DILATED COMMON BILE DUCT. FURTHER EVALUATION WITH ERCP OR MRCP SHOULD BE CONSIDERED. Abdomen/Pelvis CT 01/18/17 00:00 IMPRESSION: Significantly distended gallbladder measuring greater than 15 cm in length. Mild fat stranding is present in the right upper quadrant. No calcified stones are identified. No biliary dilatation is identified. No evidence for bowel obstruction. Hepatobiliary Scan Nuclear Medicine 01/19/17 00:00 IMPRESSION: Nonvisualization of the gallbladder. Findings worrisome for acute cholecystitis. Chest X-Ray 01/19/17 20:37 IMPRESSION: Central line with its tip at the level of the right atrium. No pneumothorax is seen. Other findings as noted above Percutaneous Drainage 01/21/17 00:00 IMPRESSION: SUCCESSFUL CT GUIDED PERCUTANEOUS CHOLECYSTOSTOMY. Chest/Abdomen CTA 01/21/17 14:25 IMPRESSION: NO PULMONARY EMBOLI.Bilateral lower lobe subsegmental atelectasis. Small bilateral pleural effusions, right greater than left. Right IJ central venous catheter tip is within the right atrium. Assessment & Plan - Diagnosis (1) Acute calculous cholecystitis Is this a current diagnosis for this admission?: Yes (2) Urinary tract infection Qualifiers: Urinary tract infection type: acute pyelonephritis Qualified Code(s) : N10 - Acute pyelonephritis Is this a current diagnosis for this admission?: Yes (3) Chronic atrial fibrillation Is this a current diagnosis for this admission?: Yes (4) Morbid obesity Qualifiers: Obesity type: due to excess calories Qualified Code(s): E66.01 - Morbid (severe) obesity due to excess calories Is this a current diagnosis for this admission?: Yes (5) Acute hypoxemic respiratory failure Is this a current diagnosis for this admission?: YesPlan: Patient presently on positive pressure ventilation with BiPAP machine. (6) Reactive airway disease with wheezing with acute exacerbation Is this a current diagnosis for this admission?: Yes (7) Chronic obstructive pulmonary disease (COPD) Qualifiers: COPD type: unspecified COPD Qualified Code(s): J44.9 - Chronic obstructive pulmonary disease, unspecified Is this a current diagnosis for this admission?: Yes (8) E. coli UTI Is this a current diagnosis for this admission?: YesPlan: The E. coli is resistant to Levaquin, the antibiotic was changed to IV ceftazidime, the DANA is quite good for this antibiotic.
[2017-01-21] MEDS: CEFTAZIDIME PENTAHYDRATE 1 GM in DEXTROSE 5%-WATER 50 ML IV SCH (22:07)
[2017-01-22] MEDS: METRONIDAZOLE 500 MG/NS RTU 100 ML IV SCH ×3 (00:12→11:59)
[2017-01-22] MEDS: HYDROMORPHONE HCL INJ/PF 2 MG/ML AMPULE IV PRN ×2 (03:28→23:30)
[2017-01-22] MEDS: IPRATROPIUM/ALBUTEROL 0.5-2.5 MG/3 ML AMPUL NEB PRN (05:27)
[2017-01-22] MEDS: CEFTAZIDIME PENTAHYDRATE 1 GM in DEXTROSE 5%-WATER 50 ML IV SCH ×3 (05:48→23:13)
[2017-01-22 06:18] LABS: HEMATOCRIT 37.9 % (36.0-47.0); HEMOGLOBIN 12.5 g/dL (12.0-15.5); HGB HCT DIFFERENCE -0.4; MEAN CORPUSCULAR HEMOGLOBIN 29.9 pg (27.0-33.4); MEAN CORPUSCULAR HGB CONC 32.9 g/dL (32.0-36.0); MEAN CORPUSCULAR VOLUME 91 fl (80-97); RED BLOOD COUNT 4.17 10^6/uL (3.72-5.28); RED CELL DISTRIBUTION WIDTH 14.1 % (11.5-14.0); WHITE BLOOD COUNT 11.5 10^3/uL (4.0-10.5)
[2017-01-22] MEDS: LEVOTHYROXINE SODIUM 0.088 MG TABLET PO SCH (06:37)
--- NOTE | 2017-01-22 07:18 | EKG REPORT ---
SEVERITY:- ABNORMAL ECG - ATRIAL FIBRILLATION, V-RATE 84-139 PROBABLE LEFT VENTRICULAR HYPERTROPHY PROBABLE INFERIOR INFARCT, AGE INDETERMINATE CONSIDER OLD ANTERIOR VT : Confirmed by: Hitesh Singh MD 22-Jan-2017 07:17:30
[2017-01-22] MEDS: HYDROCODONE/ACETAMINOPHEN 10-325 MG TABLET PO PRN (11:54)
[2017-01-22] MEDS: METOPROLOL SUCCINATE 50 MG TAB.SR.24H PO SCH (11:55)
[2017-01-22] MEDS: BISACODYL 10 MG SUPP.RECT PR SCH (11:58)
[2017-01-22] MEDS: ALPRAZOLAM 0.5 MG TABLET PO SCH ×2 (12:12→12:22)
[2017-01-22] MEDS: METRONIDAZOLE 500 MG TABLET PO SCH (18:25)
[2017-01-22 19:11] LABS: ALANINE AMINOTRANSFERASE 21 U/L (9-52); ALBUMIN 2.3 g/dL (3.5-5.0); ALKALINE PHOSPHATASE 72 U/L (38-126); ANION GAP 9 (5-19); ASPARTATE AMINO TRANSFERASE 16 U/L (14-36); BILIRUBIN,DIRECT 0.3 mg/dL (0.0-0.4); BILIRUBIN,TOTAL 0.4 mg/dL (0.2-1.3); BLOOD UREA NITROGEN 37 mg/dL (7-20); CALCIUM 8.6 mg/dL (8.4-10.2); CARBON DIOXIDE 30 mmol/L (22-30); CHLORIDE 95 mmol/L (98-107); CREATININE RESULT 0.68 mg/dL (0.52-1.25); GLUCOSE 113 mg/dL (75-110); POTASSIUM 3.5 mmol/L (3.6-5.0); SODIUM 134.3 mmol/L (137-145)
--- NOTE | 2017-01-22 19:50 | PDOC PROGRESS REPORT ---
Subjective Progress Note for:: 01/22/17 Subjective:: Patient was seen by the bedside, she is up sitting in a chair today, the cholecystostomy catheter is still draining profusely. Physical Exam Vital Signs: Temp Pulse Resp BP Pulse Ox 97.9 F 101 H 18 130/85 H 97 01/22/17 12:24 01/22/17 16:25 01/22/17 16:25 01/22/17 12:24 01/22/17 16:25 Intake & Output 01/21/17 01/22/17 01/23/17 06:59 06:59 06:59 Intake Total 2544 1715 337 Output Total 250 0 Balance 2544 1465 337 Weight 124 kg 126.9 kg General appearance: PRESENT: no acute distress Eye exam: PRESENT: PERRLA Respiratory exam: PRESENT: rhonchi Cardiovascular exam: PRESENT: +S1, +S2 Murmur grade: 3 GI/Abdominal exam: PRESENT: soft Neurological exam: PRESENT: alert Results Laboratory Results: 01/22/17 06:00 01/22/17 18:20 01/22/17 01/22/17 01/22/17 06:00 06:00 18:20 WBC 11.5 H RBC 4.17 Hgb 12.5 Hct 37.9 MCV 91 MCH 29.9 MCHC 32.9 RDW 14.1 H Plt Count 133 L Sodium 134.3 L Potassium 3.5 L Chloride 95 L Carbon Dioxide 30 Anion Gap 9 BUN 37 H Creatinine 0.68 Est GFR ( Amer) > 60 Est GFR (Non-Af Amer) > 60 Glucose 113 H Lactic Acid 0.9 Calcium 8.6 Total Bilirubin 0.4 AST 16 ALT 21 Alkaline Phosphatase 72 Total Protein 5.0 L Albumin 2.3 L Impressions: Abdomen Ultrasound 01/18/17 00:00 IMPRESSION: DISTENDED GALLBLADDER WITH GALLSTONES. DILATED COMMON BILE DUCT. FURTHER EVALUATION WITH ERCP OR MRCP SHOULD BE CONSIDERED. Abdomen/Pelvis CT 01/18/17 00:00 IMPRESSION: Significantly distended gallbladder measuring greater than 15 cm in length. Mild fat stranding is present in the right upper quadrant. No calcified stones are identified. No biliary dilatation is identified. No evidence for bowel obstruction. Hepatobiliary Scan Nuclear Medicine 01/19/17 00:00 IMPRESSION: Nonvisualization of the gallbladder. Findings worrisome for acute cholecystitis. Percutaneous Drainage 01/21/17 00:00 IMPRESSION: SUCCESSFUL CT GUIDED PERCUTANEOUS CHOLECYSTOSTOMY. Chest/Abdomen CTA 01/21/17 14:25 IMPRESSION: NO PULMONARY EMBOLI.Bilateral lower lobe subsegmental atelectasis. Small bilateral pleural effusions, right greater than left. Right IJ central venous catheter tip is within the right atrium. Chest X-Ray 01/22/17 00:00 IMPRESSION: HEART ENLARGED WITHOUT FAILURE. LOW LUNG VOLUMES WITH SCATTERED ATELECTASIS. NO ACUTE FINDINGS AND NO SIGNIFICANT CHANGE. Assessment & Plan - Diagnosis (1) Acute calculous cholecystitis Is this a current diagnosis for this admission?: YesPlan: Continue cholecystostomy tube placement (2) Urinary tract infection Qualifiers: Urinary tract infection type: acute pyelonephritis Qualified Code(s) : N10 - Acute pyelonephritis Is this a current diagnosis for this admission?: YesPlan: Continue IV ceftazidime (3) Chronic atrial fibrillation Is this a current diagnosis for this admission?: Yes (4) Morbid obesity Qualifiers: Obesity type: due to excess calories Qualified Code(s): E66.01 - Morbid (severe) obesity due to excess calories Is this a current diagnosis for this admission?: Yes (5) Acute hypoxemic respiratory failure Is this a current diagnosis for this admission?: Yes (6) Reactive airway disease with wheezing with acute exacerbation Is this a current diagnosis for this admission?: Yes (7) Chronic obstructive pulmonary disease (COPD) Qualifiers: COPD type: unspecified COPD Qualified Code(s): J44.9 - Chronic obstructive pulmonary disease, unspecified Is this a current diagnosis for this admission?: Yes (8) E. coli UTI Is this a current diagnosis for this admission?: Yes (9) Chronic atrial fibrillation with RVR Is this a current diagnosis for this admission?: YesPlan: She had episode of rapid ventricular response last night, she has chronic A. fib , patient had been very reluctant to take chronic anticoagulation.
[2017-01-22] MEDS: NORMAL SALINE 1000 ML 1,000 ML IV PRN (23:18)
[2017-01-23] MEDS: METRONIDAZOLE 500 MG TABLET PO SCH ×5 (00:43→23:39)
[2017-01-23] MEDS: CEFTAZIDIME PENTAHYDRATE 1 GM in DEXTROSE 5%-WATER 50 ML IV SCH ×3 (05:26→21:51)
[2017-01-23] MEDS: LEVOTHYROXINE SODIUM 0.088 MG TABLET PO SCH (05:26)
[2017-01-23] MEDS: IPRATROPIUM/ALBUTEROL 0.5-2.5 MG/3 ML AMPUL NEB PRN (08:15)
[2017-01-23] MEDS: ENOXAPARIN SODIUM INJ 40 MG/0.4 ML DISP.SYRIN SUBCUT SCH (10:10)
[2017-01-23] MEDS: METOPROLOL SUCCINATE 50 MG TAB.SR.24H PO SCH (10:11)
[2017-01-23] MEDS: ALPRAZOLAM 0.5 MG TABLET PO SCH ×2 (10:12→17:55)
[2017-01-23] MEDS: BISACODYL 10 MG SUPP.RECT PR SCH (10:12)
--- NOTE | 2017-01-23 10:12 | PDOC PROGRESS REPORT ---
Subjective Progress Note for:: 01/23/17 Subjective:: Patient is doing fair patient's denied any chest pain denied any shortness of denied any abdominal pain. Patient have a continuous catheter for cholecystitis. Patient's currently on IV broad-spectrum antibiotic. No overnight fever. Physical Exam Vital Signs: Temp Pulse Resp BP Pulse Ox 98.5 F 99 22 H 124/87 H 97 01/23/17 07:18 01/23/17 08:15 01/23/17 08:15 01/23/17 07:18 01/23/17 08:15 Intake & Output 01/22/17 01/23/17 01/24/17 06:59 06:59 06:59 Intake Total 1715 1017 Output Total 250 450 Balance 1465 567 Weight 126.9 kg 127.4 kg General appearance: PRESENT: no acute distress Eye exam: PRESENT: PERRLA Mouth exam: PRESENT: neck supple Respiratory exam: PRESENT: clear to auscultation mary Murmur grade: 3 GI/Abdominal exam: PRESENT: normal bowel sounds, soft. ABSENT: tenderness Additonal comments: Continuous catheter is draining site is clean Extremities exam: ABSENT: pedal edema Neurological exam: PRESENT: alert, awake Skin exam: PRESENT: dry Results Laboratory Results: 01/22/17 06:00 01/22/17 18:20 01/22/17 18:20 Sodium 134.3 L Potassium 3.5 L Chloride 95 L Carbon Dioxide 30 Anion Gap 9 BUN 37 H Creatinine 0.68 Est GFR ( Amer) > 60 Est GFR (Non-Af Amer) > 60 Glucose 113 H Calcium 8.6 Total Bilirubin 0.4 AST 16 ALT 21 Alkaline Phosphatase 72 Total Protein 5.0 L Albumin 2.3 L Impressions: Abdomen Ultrasound 01/18/17 00:00 IMPRESSION: DISTENDED GALLBLADDER WITH GALLSTONES. DILATED COMMON BILE DUCT. FURTHER EVALUATION WITH ERCP OR MRCP SHOULD BE CONSIDERED. Abdomen/Pelvis CT 01/18/17 00:00 IMPRESSION: Significantly distended gallbladder measuring greater than 15 cm in length. Mild fat stranding is present in the right upper quadrant. No calcified stones are identified. No biliary dilatation is identified. No evidence for bowel obstruction. Hepatobiliary Scan Nuclear Medicine 01/19/17 00:00 IMPRESSION: Nonvisualization of the gallbladder. Findings worrisome for acute cholecystitis. Percutaneous Drainage 01/21/17 00:00 IMPRESSION: SUCCESSFUL CT GUIDED PERCUTANEOUS CHOLECYSTOSTOMY. Chest/Abdomen CTA 01/21/17 14:25 IMPRESSION: NO PULMONARY EMBOLI.Bilateral lower lobe subsegmental atelectasis. Small bilateral pleural effusions, right greater than left. Right IJ central venous catheter tip is within the right atrium. Chest X-Ray 01/22/17 00:00 IMPRESSION: HEART ENLARGED WITHOUT FAILURE. LOW LUNG VOLUMES WITH SCATTERED ATELECTASIS. NO ACUTE FINDINGS AND NO SIGNIFICANT CHANGE. Assessment & Plan - Diagnosis (1) Acute calculous cholecystitis Is this a current diagnosis for this admission?: YesPlan: Continues IV antibiotic and continues the catheter draining (2) Chronic atrial fibrillation Is this a current diagnosis for this admission?: Yes (3) Chronic obstructive pulmonary disease (COPD) Qualifiers: COPD type: unspecified COPD Qualified Code(s): J44.9 - Chronic obstructive pulmonary disease, unspecified Is this a current diagnosis for this admission?: YesPlan: Continues a nebulizer treatments (4) Morbid obesity Qualifiers: Obesity type: due to excess calories Qualified Code(s): E66.01 - Morbid (severe) obesity due to excess calories Is this a current diagnosis for this admission?: Yes (5) Reactive airway disease with wheezing with acute exacerbation Is this a current diagnosis for this admission?: YesPlan: Continues the current medications (6) Urinary tract infection Qualifiers: Urinary tract infection type: acute pyelonephritis Qualified Code(s) : N10 - Acute pyelonephritis Is this a current diagnosis for this admission?: YesPlan: Escherichia coli urinary tract infections continues IV antibiotic - Time Time Spent with patient: 15-24 minutes Medications reviewed and adjusted accordingly: Yes Anticipated discharge: Other Within: Other - Inpatient Certification Medical Necessity: Need Close Monitoring Due to Risk of Patient Decompensation, Need for IV Antibiotics Post Hospital Care: D/C Literacy Coordinator Documentation - Plan Summary Plan Summary: We'll check the blood work in the morning and continues to IV antibiotic
[2017-01-23] MEDS: NORMAL SALINE 1000 ML 1,000 ML IV PRN (19:28)
[2017-01-23] MEDS: HYDROCODONE/ACETAMINOPHEN 10-325 MG TABLET PO PRN (21:45)
[2017-01-23] MEDS: HYDROMORPHONE HCL INJ/PF 2 MG/ML AMPULE IV PRN (23:39)
[2017-01-24] MEDS: METRONIDAZOLE 500 MG TABLET PO SCH ×4 (06:10→23:34)
[2017-01-24] MEDS: LEVOTHYROXINE SODIUM 0.088 MG TABLET PO SCH (06:10)
[2017-01-24] MEDS: CEFTAZIDIME PENTAHYDRATE 1 GM in DEXTROSE 5%-WATER 50 ML IV SCH ×3 (06:12→22:46)
[2017-01-24 06:18] LABS: ABSOLUTE EOSINOPHILS # (AUTO) 0.1 10^3/uL (0.0-0.6); ABSOLUTE LYMPHOCYTES (AUTO) 0.7 10^3/uL (0.5-4.7); ABSOLUTE MONOCYTES (AUTO) 1.1 10^3/uL (0.1-1.4); ABSOLUTE NEUT (AUTO) 4.7 10^3/uL (1.7-8.2); BASOPHILS % (AUTO) 0.3 % (0-2); EOSINOPHILS % (AUTO) 1.7 % (0-6); HEMATOCRIT 35.5 % (36.0-47.0); HEMOGLOBIN 11.8 g/dL (12.0-15.5); HGB HCT DIFFERENCE -0.1; LYMPHOCYTES % (AUTO) 10.5 % (13-45); MEAN CORPUSCULAR HEMOGLOBIN 30.2 pg (27.0-33.4); MEAN CORPUSCULAR HGB CONC 33.2 g/dL (32.0-36.0); MEAN CORPUSCULAR VOLUME 91 fl (80-97); MONOCYTES % (AUTO) 16.6 % (3-13); RED CELL DISTRIBUTION WIDTH 13.9 % (11.5-14.0); SEGMENTED NEUTROPHILS % (AUTO) 70.9 % (42-78); WHITE BLOOD COUNT 6.6 10^3/uL (4.0-10.5)
[2017-01-24 06:39] LABS: ALANINE AMINOTRANSFERASE 22 U/L (9-52); ALBUMIN 2.2 g/dL (3.5-5.0); ALKALINE PHOSPHATASE 62 U/L (38-126); ANION GAP 9 (5-19); ASPARTATE AMINO TRANSFERASE 14 U/L (14-36); BILIRUBIN,DIRECT 0.2 mg/dL (0.0-0.4); BILIRUBIN,TOTAL 0.4 mg/dL (0.2-1.3); BLOOD UREA NITROGEN 23 mg/dL (7-20); CALCIUM 8.5 mg/dL (8.4-10.2); CARBON DIOXIDE 32 mmol/L (22-30); CHLORIDE 98 mmol/L (98-107); CREATININE RESULT 0.51 mg/dL (0.52-1.25); GLUCOSE 103 mg/dL (75-110); POTASSIUM 3.7 mmol/L (3.6-5.0); SODIUM 138.8 mmol/L (137-145); TOTAL PROTEIN 4.8 g/dL (6.3-8.2)
[2017-01-24] MEDS: IPRATROPIUM/ALBUTEROL 0.5-2.5 MG/3 ML AMPUL NEB PRN ×2 (08:04→21:23)
--- NOTE | 2017-01-24 09:34 | PDOC PROGRESS REPORT ---
Subjective Progress Note for:: 01/24/17 Subjective:: Patient is doing fair patient's denied any chest pain denied any shortness of denied any abdominal pain. Patient have a continuous catheter for cholecystitis. Patient's currently on IV broad-spectrum antibiotic. No overnight fever. Physical Exam Vital Signs: Temp Pulse Resp BP Pulse Ox 98.2 F 78 20 149/85 H 95 01/24/17 04:56 01/24/17 04:56 01/24/17 04:56 01/24/17 04:56 01/23/17 23:39 Intake & Output 01/23/17 01/24/17 01/25/17 06:59 06:59 06:59 Intake Total 1017 1261 Output Total 450 150 Balance 567 1261 -150 Weight 127.4 kg 121.9 kg General appearance: PRESENT: no acute distress Head exam: PRESENT: normocephalic Eye exam: PRESENT: PERRLA Mouth exam: PRESENT: neck supple Respiratory exam: PRESENT: clear to auscultation mary Cardiovascular exam: PRESENT: +S1, +S2 Murmur grade: 3 GI/Abdominal exam: PRESENT: normal bowel sounds, soft. ABSENT: tenderness Additonal comments: cath site intact Extremities exam: ABSENT: pedal edema Neurological exam: PRESENT: alert, awake Results Laboratory Results: 01/24/17 05:50 01/24/17 05:50 01/24/17 01/24/17 05:50 05:50 WBC 6.6 RBC 3.90 Hgb 11.8 L Hct 35.5 L MCV 91 MCH 30.2 MCHC 33.2 RDW 13.9 Plt Count 137 L Seg Neutrophils % 70.9 Lymphocytes % 10.5 L Monocytes % 16.6 H Eosinophils % 1.7 Basophils % 0.3 Absolute Neutrophils 4.7 Absolute Lymphocytes 0.7 Absolute Monocytes 1.1 Absolute Eosinophils 0.1 Absolute Basophils 0.0 Sodium 138.8 Potassium 3.7 Chloride 98 Carbon Dioxide 32 H Anion Gap 9 BUN 23 H Creatinine 0.51 L Est GFR ( Amer) > 60 Est GFR (Non-Af Amer) > 60 Glucose 103 Calcium 8.5 Total Bilirubin 0.4 AST 14 ALT 22 Alkaline Phosphatase 62 Total Protein 4.8 L Albumin 2.2 L 01/21/17 11:25 Gall Bladder Fluid Gram Stain - Final 01/21/17 11:25 Gall Bladder Fluid Body Fluid Culture - Final Escherichia Coli No Anaerobic Organisms 01/18/17 18:10 Blood Blood Culture - Final NO GROWTH IN 5 DAYS 01/18/17 16:20 Blood Blood Culture - Final NO GROWTH IN 5 DAYS Impressions: Abdomen Ultrasound 01/18/17 00:00 IMPRESSION: DISTENDED GALLBLADDER WITH GALLSTONES. DILATED COMMON BILE DUCT. FURTHER EVALUATION WITH ERCP OR MRCP SHOULD BE CONSIDERED. Abdomen/Pelvis CT 01/18/17 00:00 IMPRESSION: Significantly distended gallbladder measuring greater than 15 cm in length. Mild fat stranding is present in the right upper quadrant. No calcified stones are identified. No biliary dilatation is identified. No evidence for bowel obstruction. Hepatobiliary Scan Nuclear Medicine 01/19/17 00:00 IMPRESSION: Nonvisualization of the gallbladder. Findings worrisome for acute cholecystitis. Percutaneous Drainage 01/21/17 00:00 IMPRESSION: SUCCESSFUL CT GUIDED PERCUTANEOUS CHOLECYSTOSTOMY. Chest/Abdomen CTA 01/21/17 14:25 IMPRESSION: NO PULMONARY EMBOLI.Bilateral lower lobe subsegmental atelectasis. Small bilateral pleural effusions, right greater than left. Right IJ central venous catheter tip is within the right atrium. Chest X-Ray 01/22/17 00:00 IMPRESSION: HEART ENLARGED WITHOUT FAILURE. LOW LUNG VOLUMES WITH SCATTERED ATELECTASIS. NO ACUTE FINDINGS AND NO SIGNIFICANT CHANGE. Assessment & Plan - Diagnosis (1) Acute calculous cholecystitis Is this a current diagnosis for this admission?: YesPlan: Continues IV antibiotic and continues the catheter draining (2) Chronic atrial fibrillation Is this a current diagnosis for this admission?: YesPlan: cont curr med (3) Chronic obstructive pulmonary disease (COPD) Qualifiers: COPD type: unspecified COPD Qualified Code(s): J44.9 - Chronic obstructive pulmonary disease, unspecified Is this a current diagnosis for this admission?: YesPlan: Continues a nebulizer treatments (4) Morbid obesity Qualifiers: Obesity type: due to excess calories Qualified Code(s): E66.01 - Morbid (severe) obesity due to excess calories Is this a current diagnosis for this admission?: Yes (5) Reactive airway disease with wheezing with acute exacerbation Is this a current diagnosis for this admission?: YesPlan: Continues the current medications (6) Urinary tract infection Qualifiers: Urinary tract infection type: acute pyelonephritis Qualified Code(s) : N10 - Acute pyelonephritis Is this a current diagnosis for this admission?: YesPlan: Escherichia coli urinary tract infections continues IV antibiotic - Time Time Spent with patient: 15-24 minutes Medications reviewed and adjusted accordingly: Yes Anticipated discharge: Other Within: Other - Inpatient Certification Medical Necessity: Need for IV Antibiotics Post Hospital Care: D/C It Network Architect Documentation - Plan Summary Plan Summary: cont curr med may need to d/c iv pain med and start po pain med
[2017-01-24] MEDS: ENOXAPARIN SODIUM INJ 40 MG/0.4 ML DISP.SYRIN SUBCUT SCH (10:05)
[2017-01-24] MEDS: BISACODYL 10 MG SUPP.RECT PR SCH (10:06)
[2017-01-24] MEDS: METOPROLOL SUCCINATE 50 MG TAB.SR.24H PO SCH (10:06)
[2017-01-24] MEDS: ALPRAZOLAM 0.5 MG TABLET PO SCH ×2 (10:06→17:33)
[2017-01-24 10:50] LABS: ARTERIAL BLOOD BASE EXCESS 6.1 mmol/L; ARTERIAL BLOOD O2 SATURATION 91.8 % (94-98)
[2017-01-24] MEDS: HYDROCODONE/ACETAMINOPHEN 10-325 MG TABLET PO PRN (18:57)
[2017-01-25] MEDS ORDERED: METOPROLOL SUCCINATE 50 MG TAB.SR.24H PO ONE (00:15)
[2017-01-25] MEDS: CEFTAZIDIME PENTAHYDRATE 1 GM in DEXTROSE 5%-WATER 50 ML IV SCH (05:39)
[2017-01-25] MEDS: METRONIDAZOLE 500 MG TABLET PO SCH ×4 (05:39→23:54)
[2017-01-25] MEDS: LEVOTHYROXINE SODIUM 0.088 MG TABLET PO SCH (05:39)
[2017-01-25] MEDS: HYDROCODONE/ACETAMINOPHEN 10-325 MG TABLET PO PRN ×2 (05:50→17:55)
[2017-01-25 06:09] LABS: ABSOLUTE EOSINOPHILS # (AUTO) 0.2 10^3/uL (0.0-0.6); ABSOLUTE LYMPHOCYTES (AUTO) 0.9 10^3/uL (0.5-4.7); ABSOLUTE MONOCYTES (AUTO) 1.1 10^3/uL (0.1-1.4); ABSOLUTE NEUT (AUTO) 6.4 10^3/uL (1.7-8.2); BASOPHILS % (AUTO) 0.3 % (0-2); EOSINOPHILS % (AUTO) 1.9 % (0-6); HEMATOCRIT 37.9 % (36.0-47.0); HEMOGLOBIN 12.6 g/dL (12.0-15.5); HGB HCT DIFFERENCE -0.1; LYMPHOCYTES % (AUTO) 10.6 % (13-45); MEAN CORPUSCULAR HEMOGLOBIN 29.9 pg (27.0-33.4); MEAN CORPUSCULAR HGB CONC 33.1 g/dL (32.0-36.0); MEAN CORPUSCULAR VOLUME 90 fl (80-97); MONOCYTES % (AUTO) 12.8 % (3-13); SEGMENTED NEUTROPHILS % (AUTO) 74.4 % (42-78); WHITE BLOOD COUNT 8.5 10^3/uL (4.0-10.5)
[2017-01-25 06:25] LABS: ANION GAP 6 (5-19); BLOOD UREA NITROGEN 14 mg/dL (7-20); CALCIUM 8.7 mg/dL (8.4-10.2); CARBON DIOXIDE 35 mmol/L (22-30); CHLORIDE 97 mmol/L (98-107); CREATININE RESULT 0.44 mg/dL (0.52-1.25); GLUCOSE 98 mg/dL (75-110); POTASSIUM 3.7 mmol/L (3.6-5.0); SODIUM 138.2 mmol/L (137-145)
[2017-01-25] MEDS: IPRATROPIUM/ALBUTEROL 0.5-2.5 MG/3 ML AMPUL NEB PRN (08:10)
[2017-01-25] MEDS: ENOXAPARIN SODIUM INJ 40 MG/0.4 ML DISP.SYRIN SUBCUT SCH (08:16)
[2017-01-25] MEDS: METOPROLOL SUCCINATE 50 MG TAB.SR.24H PO SCH (10:20)
[2017-01-25] MEDS: ALPRAZOLAM 0.5 MG TABLET PO SCH ×2 (10:20→17:56)
[2017-01-25] MEDS: BISACODYL 10 MG SUPP.RECT PR SCH (11:11)
[2017-01-25] MEDS: NORMAL SALINE 1000 ML 1,000 ML IV PRN (13:50)
[2017-01-25] MEDS: CEFAZOLIN 1 GM/D5W RTU 1 GM/50 ML RTUPB IV SCH ×2 (14:34→21:58)
--- NOTE | 2017-01-25 19:35 | PDOC PROGRESS REPORT ---
Subjective Progress Note for:: 01/25/17 Subjective:: Patient was seen by the bedside, she is very weak and deconditioned and she will require rehabilitation in a custodial home before she gets discharged to home. She has E. coli acute calculus cholecystitis and also E. coli UTI, same bacteria was cultured from the urine and also from the gall bladder fluid. The cholecystostomy tube is still draining a lot of infected secretion Physical Exam Vital Signs: Temp Pulse Resp BP Pulse Ox 98.0 F 87 22 H 155/115 H 99 01/25/17 17:13 01/25/17 17:13 01/25/17 17:13 01/25/17 17:13 01/25/17 17:13 Intake & Output 01/24/17 01/25/17 01/26/17 06:59 06:59 06:59 Intake Total 1261 1048 1002 Output Total 350 Balance 8151 660 4686 Weight 121.9 kg 122 kg General appearance: PRESENT: no acute distress Eye exam: PRESENT: PERRLA Respiratory exam: PRESENT: clear to auscultation mary Cardiovascular exam: PRESENT: +S1, +S2 Murmur grade: 3 GI/Abdominal exam: PRESENT: soft Neurological exam: PRESENT: alert, CN II-XII grossly intact Results Laboratory Results: 01/25/17 05:25 01/25/17 05:25 01/25/17 01/25/17 05:25 05:25 WBC 8.5 RBC 4.20 Hgb 12.6 Hct 37.9 MCV 90 MCH 29.9 MCHC 33.1 RDW 14.0 Plt Count 156 Seg Neutrophils % 74.4 Lymphocytes % 10.6 L Monocytes % 12.8 Eosinophils % 1.9 Basophils % 0.3 Absolute Neutrophils 6.4 Absolute Lymphocytes 0.9 Absolute Monocytes 1.1 Absolute Eosinophils 0.2 Absolute Basophils 0.0 Sodium 138.2 Potassium 3.7 Chloride 97 L Carbon Dioxide 35 H Anion Gap 6 BUN 14 Creatinine 0.44 L Est GFR ( Amer) > 60 Est GFR (Non-Af Amer) > 60 Glucose 98 Calcium 8.7 Impressions: Abdomen Ultrasound 01/18/17 00:00 IMPRESSION: DISTENDED GALLBLADDER WITH GALLSTONES. DILATED COMMON BILE DUCT. FURTHER EVALUATION WITH ERCP OR MRCP SHOULD BE CONSIDERED. Abdomen/Pelvis CT 01/18/17 00:00 IMPRESSION: Significantly distended gallbladder measuring greater than 15 cm in length. Mild fat stranding is present in the right upper quadrant. No calcified stones are identified. No biliary dilatation is identified. No evidence for bowel obstruction. Hepatobiliary Scan Nuclear Medicine 01/19/17 00:00 IMPRESSION: Nonvisualization of the gallbladder. Findings worrisome for acute cholecystitis. Percutaneous Drainage 01/21/17 00:00 IMPRESSION: SUCCESSFUL CT GUIDED PERCUTANEOUS CHOLECYSTOSTOMY. Chest/Abdomen CTA 01/21/17 14:25 IMPRESSION: NO PULMONARY EMBOLI.Bilateral lower lobe subsegmental atelectasis. Small bilateral pleural effusions, right greater than left. Right IJ central venous catheter tip is within the right atrium. Chest X-Ray 01/22/17 00:00 IMPRESSION: HEART ENLARGED WITHOUT FAILURE. LOW LUNG VOLUMES WITH SCATTERED ATELECTASIS. NO ACUTE FINDINGS AND NO SIGNIFICANT CHANGE. Esophagus X-Ray 01/25/17 00:00 IMPRESSION: Hiatal hernia. Gastroesophageal reflux. Dysmotility. No stricture identified. Assessment & Plan - Diagnosis (1) Acute calculous cholecystitis Is this a current diagnosis for this admission?: YesPlan: Continue cholecystostomy tube placement (2) Urinary tract infection Qualifiers: Urinary tract infection type: acute pyelonephritis Qualified Code(s) : N10 - Acute pyelonephritis Is this a current diagnosis for this admission?: Yes (3) Chronic atrial fibrillation Is this a current diagnosis for this admission?: Yes (4) Morbid obesity Qualifiers: Obesity type: due to excess calories Qualified Code(s): E66.01 - Morbid (severe) obesity due to excess calories Is this a current diagnosis for this admission?: Yes (5) Acute hypoxemic respiratory failure Is this a current diagnosis for this admission?: Yes (6) Reactive airway disease with wheezing with acute exacerbation Is this a current diagnosis for this admission?: Yes (7) Chronic obstructive pulmonary disease (COPD) Qualifiers: COPD type: unspecified COPD Qualified Code(s): J44.9 - Chronic obstructive pulmonary disease, unspecified Is this a current diagnosis for this admission?: Yes (8) E. coli UTI Is this a current diagnosis for this admission?: Yes (9) Chronic atrial fibrillation with RVR Is this a current diagnosis for this admission?: Yes (10) Essential hypertension Plan: She will require as needed medication for blood pressure, for systolic more than 160 - Plan Summary Plan Summary: She will continue IV antibiotic and consultation will be requested for discharge planning to arrange for alf placement for rehabilitation
[2017-01-25] MEDS: HYDRALAZINE HCL INJ/PF 20 MG/1 ML SDV IV PRN (20:50)
[2017-01-25] MEDS: HYDROMORPHONE HCL INJ/PF 2 MG/ML AMPULE IV PRN (21:59)
[2017-01-26] MEDS: METRONIDAZOLE 500 MG TABLET PO SCH (05:38)
[2017-01-26] MEDS: LEVOTHYROXINE SODIUM 0.088 MG TABLET PO SCH (05:38)
[2017-01-26] MEDS: CEFAZOLIN 1 GM/D5W RTU 1 GM/50 ML RTUPB IV SCH ×3 (05:39→22:04)
[2017-01-26 06:54] LABS: ANION GAP 8 (5-19); BLOOD UREA NITROGEN 12 mg/dL (7-20); CALCIUM 8.2 mg/dL (8.4-10.2); CARBON DIOXIDE 36 mmol/L (22-30); CHLORIDE 94 mmol/L (98-107); CREATININE RESULT 0.42 mg/dL (0.52-1.25); GLUCOSE 97 mg/dL (75-110); POTASSIUM 3.5 mmol/L (3.6-5.0); SODIUM 137.7 mmol/L (137-145)
[2017-01-26] MEDS: ENOXAPARIN SODIUM INJ 40 MG/0.4 ML DISP.SYRIN SUBCUT SCH (08:37)
[2017-01-26] MEDS: METOPROLOL SUCCINATE 50 MG TAB.SR.24H PO SCH (09:35)
[2017-01-26] MEDS: BISACODYL 10 MG SUPP.RECT PR SCH (09:40)
[2017-01-26] MEDS: HYDROCODONE/ACETAMINOPHEN 10-325 MG TABLET PO PRN (18:02)
[2017-01-27] MEDS: CEFAZOLIN 1 GM/D5W RTU 1 GM/50 ML RTUPB IV SCH ×3 (06:30→22:05)
[2017-01-27] MEDS: LEVOTHYROXINE SODIUM 0.088 MG TABLET PO SCH (06:30)
[2017-01-27] MEDS: HYDROCODONE/ACETAMINOPHEN 10-325 MG TABLET PO PRN (06:47)
[2017-01-27] MEDS: ENOXAPARIN SODIUM INJ 40 MG/0.4 ML DISP.SYRIN SUBCUT SCH (08:31)
[2017-01-27] MEDS: BISACODYL 10 MG SUPP.RECT PR SCH (09:36)
[2017-01-27] MEDS: METOPROLOL SUCCINATE 50 MG TAB.SR.24H PO SCH (09:42)
--- NOTE | 2017-01-27 17:08 | PDOC PROGRESS REPORT ---
Subjective Progress Note for:: 01/26/17 Subjective:: She was seen by the bedside, she is seems to be doing well on the plan is to transfer for rehabilitation at the intermediate, discharge planning is working on getting a place. Physical Exam Vital Signs: Temp Pulse Resp BP Pulse Ox 98.6 F 71 18 153/108 H 96 01/26/17 16:03 01/26/17 16:10 01/26/17 16:10 01/26/17 16:03 01/26/17 16:10 Intake & Output 01/25/17 01/26/17 01/27/17 06:59 06:59 06:59 Intake Total 1048 1957 320 Output Total 350 350 100 Balance 698 1607 220 Weight 122 kg 125.8 kg General appearance: PRESENT: no acute distress Eye exam: PRESENT: PERRLA Cardiovascular exam: PRESENT: +S1, +S2 Murmur grade: 3 GI/Abdominal exam: PRESENT: soft Results Laboratory Results: 01/25/17 05:25 01/26/17 05:45 01/26/17 05:45 Sodium 137.7 Potassium 3.5 L Chloride 94 L Carbon Dioxide 36 H Anion Gap 8 BUN 12 Creatinine 0.42 L Est GFR ( Amer) > 60 Est GFR (Non-Af Amer) > 60 Glucose 97 Calcium 8.2 L Impressions: Abdomen Ultrasound 01/18/17 00:00 IMPRESSION: DISTENDED GALLBLADDER WITH GALLSTONES. DILATED COMMON BILE DUCT. FURTHER EVALUATION WITH ERCP OR MRCP SHOULD BE CONSIDERED. Abdomen/Pelvis CT 01/18/17 00:00 IMPRESSION: Significantly distended gallbladder measuring greater than 15 cm in length. Mild fat stranding is present in the right upper quadrant. No calcified stones are identified. No biliary dilatation is identified. No evidence for bowel obstruction. Hepatobiliary Scan Nuclear Medicine 01/19/17 00:00 IMPRESSION: Nonvisualization of the gallbladder. Findings worrisome for acute cholecystitis. Percutaneous Drainage 01/21/17 00:00 IMPRESSION: SUCCESSFUL CT GUIDED PERCUTANEOUS CHOLECYSTOSTOMY. Chest/Abdomen CTA 01/21/17 14:25 IMPRESSION: NO PULMONARY EMBOLI.Bilateral lower lobe subsegmental atelectasis. Small bilateral pleural effusions, right greater than left. Right IJ central venous catheter tip is within the right atrium. Chest X-Ray 01/22/17 00:00 IMPRESSION: HEART ENLARGED WITHOUT FAILURE. LOW LUNG VOLUMES WITH SCATTERED ATELECTASIS. NO ACUTE FINDINGS AND NO SIGNIFICANT CHANGE. Esophagus X-Ray 01/25/17 00:00 IMPRESSION: Hiatal hernia. Gastroesophageal reflux. Dysmotility. No stricture identified. Assessment & Plan - Diagnosis (1) Acute calculous cholecystitis Is this a current diagnosis for this admission?: Yes (2) Urinary tract infection Qualifiers: Urinary tract infection type: acute pyelonephritis Qualified Code(s) : N10 - Acute pyelonephritis Is this a current diagnosis for this admission?: Yes (3) Chronic atrial fibrillation Is this a current diagnosis for this admission?: Yes (4) Morbid obesity Qualifiers: Obesity type: due to excess calories Qualified Code(s): E66.01 - Morbid (severe) obesity due to excess calories Is this a current diagnosis for this admission?: Yes (5) Acute hypoxemic respiratory failure Is this a current diagnosis for this admission?: Yes (6) Reactive airway disease with wheezing with acute exacerbation Is this a current diagnosis for this admission?: Yes (7) Chronic obstructive pulmonary disease (COPD) Qualifiers: COPD type: unspecified COPD Qualified Code(s): J44.9 - Chronic obstructive pulmonary disease, unspecified Is this a current diagnosis for this admission?: Yes (8) E. coli UTI Is this a current diagnosis for this admission?: Yes (9) Chronic atrial fibrillation with RVR Is this a current diagnosis for this admission?: Yes (10) Essential hypertension Is this a current diagnosis for this admission?: Yes
--- NOTE | 2017-01-27 17:24 | PDOC TRANSFER SUMMARY ---
General - Admit/Disc Date/PCP Admission Date/Primary Care Provider: 01/18/17 14:32 NIKKI MCCULLOUGH MD Discharge Date: 01/28/17 - Discharge Diagnosis (1) Acute calculous cholecystitis Is this a current diagnosis for this admission?: Yes (2) Urinary tract infection Is this a current diagnosis for this admission?: Yes (3) Chronic atrial fibrillation Is this a current diagnosis for this admission?: Yes (4) Morbid obesity Is this a current diagnosis for this admission?: Yes (5) Acute hypoxemic respiratory failure Is this a current diagnosis for this admission?: Yes (6) Reactive airway disease with wheezing with acute exacerbation Is this a current diagnosis for this admission?: Yes (7) Chronic obstructive pulmonary disease (COPD) Is this a current diagnosis for this admission?: Yes (8) E. coli UTI Is this a current diagnosis for this admission?: Yes (9) Chronic atrial fibrillation with RVR Is this a current diagnosis for this admission?: Yes (10) Essential hypertension Is this a current diagnosis for this admission?: Yes - Additional Information Home Medications: Alprazolam 1 mg PO BID 08/22/12 Levothyroxine Sodium [Synthroid 0.088 mg Tablet] 88 mcg PO 0600 08/22/12 Metoprolol Succinate [Toprol XL 200 mg Tablet] 200 mg PO DAILY 07/17/14 Hydrocodone Bit/Acetaminophen [Hydrocodon-Acetaminophn 10-325] 10 - 325 mg PO Q8 PRN 01/18/17 Alprazolam [Alprazolam Odt] 1 mg PO BID #60 tab.rapdis 01/27/17 Bisacodyl [Dulcolax 10 mg Supp.rect] 10 mg LA DAILY #0 supp.rect 01/27/17 Hydrocodone/Acetaminophen [[place] 10-325 mg Tablet] 1 tab PO Q6HP PRN #120 tablet 01/27/17 Ipratropium/Albuterol Sulfate [Duoneb 3 ml Ampul] 3 ml NEB RTQ6HP PRN #0 vial.neb 01/27/17 History of Present Illness Admission Date/PCP: 01/18/17 14:32 NIKKI MCCULLOUGH MD History of Present Illness: GIUSEPPE RINCON is a 81 year old female, with a history of hypertension, morbid obesity, BMI of 44.7, she came to the office with her daughter because of vomiting and right flank pain. She was seen and evaluated in the office, she looks sick and she does not look herself. On examination of the abdomen there was tenderness on palpation of the right flank and also the upper abdomen, because of history of recurrent UTI ,I was concerned she may have acute pyelonephritis, I was also concerned because of the tenderness in the right upper abdomen. She was admitted directly from the office to the hospital for evaluation. CAT scan of the abdomen and pelvis with no IV contrast was ordered , oral contrast was administered, it showed distended gallbladder that measures 50 cm in length also found was fat stranding in the right upper quadrant no stone was found. Because of these findings on the CT scan of the abdomen and pelvis I suspect that she may have cholecystitis so ultrasound of the gallbladder was ordered and it showed distended gallbladder with stones because of concern for acute cholecystitis HIDA scan was done on it was positive for cholecystitis there was non visualization of the gallbladder. The urinalysis was also abnormal suggesting UTI Hospital Course Hospital Course: Patient was admitted from the office when she presented with right flank abdominal pain on right upper quadrant abdominal pain, she was ultimately diagnosed with E. coli UTI on acute calculus cholecystitis. She was initially treated with IV antibiotic including Levaquin and Flagyl she was seen by the surgeon and a non-surgical approach was recommended for the management of the acute calculus cholecystitis because of the risk of surgery seems to be high in this patient. She had a successful CT-guided percutaneous cholecystostomy done on 01/21/2017 hospital course was complicated with acute hypoxemic respiratory failure, d-dimer was elevated, CTA chest was done and it was negative for pulmonary embolism. She was supported with BiPAP machine because of the acute hypoxemic auditory failure and she was treated with bronchodilators because she had acute wheezing episode. The urine culture on the culture from the cholecystostomy drainage grew E. coli that was resistant to Levaquin but sensitive to ceftazidime with a good DANA and she was treated with ceftazidime for couple of days and then transition to Ancef 1 g IV every 8 hours . She is very deconditioned and the plan is [facility], she will continue IV antibiotic for 7 more days and she will follow with the surgeon, Dr. Corona as outpatient. She also had episode of atrial fibrillation with rapid irregular response requiring rate control controlled with beta-tony. She does not want any anticoagulant for stroke prophylaxis Physical Exam Vital Signs: Temp Pulse Resp BP Pulse Ox 98.3 F 74 18 154/100 H 96 01/27/17 11:36 01/27/17 14:00 01/27/17 11:36 01/27/17 11:36 01/27/17 11:36 Intake & Output 01/26/17 01/27/17 01/28/17 06:59 06:59 06:59 Intake Total 1957 770 Output Total 350 100 Balance 1607 670 Weight 125.8 kg 126.6 kg General appearance: PRESENT: no acute distress, morbidly obese Eye exam: PRESENT: PERRLA Neck exam: PRESENT: other - The neck is supple, there is no lymphadenopathy Respiratory exam: PRESENT: clear to auscultation mary Cardiovascular exam: PRESENT: +S1, +S2 GI/Abdominal exam: PRESENT: soft, other - There is a cholecystostomy tube in place Neurological exam: PRESENT: alert, CN II-XII grossly intact Results Laboratory Results: 01/25/17 05:25 01/26/17 05:45 Impressions: Abdomen Ultrasound 01/18/17 00:00 IMPRESSION: DISTENDED GALLBLADDER WITH GALLSTONES. DILATED COMMON BILE DUCT. FURTHER EVALUATION WITH ERCP OR MRCP SHOULD BE CONSIDERED. Abdomen/Pelvis CT 01/18/17 00:00 IMPRESSION: Significantly distended gallbladder measuring greater than 15 cm in length. Mild fat stranding is present in the right upper quadrant. No calcified stones are identified. No biliary dilatation is identified. No evidence for bowel obstruction. Hepatobiliary Scan Nuclear Medicine 01/19/17 00:00 IMPRESSION: Nonvisualization of the gallbladder. Findings worrisome for acute cholecystitis. Percutaneous Drainage 01/21/17 00:00 IMPRESSION: SUCCESSFUL CT GUIDED PERCUTANEOUS CHOLECYSTOSTOMY. Chest/Abdomen CTA 01/21/17 14:25 IMPRESSION: NO PULMONARY EMBOLI.Bilateral lower lobe subsegmental atelectasis. Small bilateral pleural effusions, right greater than left. Right IJ central venous catheter tip is within the right atrium. Chest X-Ray 01/22/17 00:00 IMPRESSION: HEART ENLARGED WITHOUT FAILURE. LOW LUNG VOLUMES WITH SCATTERED ATELECTASIS. NO ACUTE FINDINGS AND NO SIGNIFICANT CHANGE. Esophagus X-Ray 01/25/17 00:00 IMPRESSION: Hiatal hernia. Gastroesophageal reflux. Dysmotility. No stricture identified. Transfer Plan - Disposition Transfer Plan: The transfer plan is the following 1 she will continue IV Ancef 1 g IV every 8 hours for 7 more days 2/ she will see the surgeon DR Booth as outpatient therapy,3 she will continue her rehabilitation
[2017-01-28] MEDS: CEFAZOLIN 1 GM/D5W RTU 1 GM/50 ML RTUPB IV SCH ×3 (06:08→22:58)
[2017-01-28] MEDS: LEVOTHYROXINE SODIUM 0.088 MG TABLET PO SCH (06:09)
[2017-01-28] MEDS: METOPROLOL SUCCINATE 50 MG TAB.SR.24H PO SCH (09:38)
[2017-01-28] MEDS: ENOXAPARIN SODIUM INJ 40 MG/0.4 ML DISP.SYRIN SUBCUT SCH (09:39)
[2017-01-28] MEDS: BISACODYL 10 MG SUPP.RECT PR SCH (09:40)
[2017-01-29] MEDS: CEFAZOLIN 1 GM/D5W RTU 1 GM/50 ML RTUPB IV SCH ×2 (05:21→13:36)
[2017-01-29] MEDS: LEVOTHYROXINE SODIUM 0.088 MG TABLET PO SCH (05:21)
[2017-01-29] MEDS: HYDRALAZINE HCL INJ/PF 20 MG/1 ML SDV IV PRN (05:26)
[2017-01-29] MEDS: BISACODYL 10 MG SUPP.RECT PR SCH (11:21)
[2017-01-29] MEDS: METOPROLOL SUCCINATE 50 MG TAB.SR.24H PO SCH (11:22)
[2017-01-29 17:36] VITALS: BP 159/98
== END 2017-01-29 20:35 | DRG 444 ==
LOC: 3W 14:32
PROVIDERS: ADMIT Internal Medicine; ATTEND Internal Medicine
PROC: 02HV33Z Insertion of Infusion Device into Superior Vena Cava, Percutaneous Approach (ICD-10-PCS; principal; 2017-01-19)
PROC: 0F9430Z Drainage of Gallbladder with Drainage Device, Percutaneous Approach (ICD-10-PCS; 2017-01-21)
PROC: 02HV33Z Insertion of Infusion Device into Superior Vena Cava, Percutaneous Approach (ICD-10-PCS; 2017-01-29)
PROC: B548ZZA Ultrasonography of Superior Vena Cava, Guidance (ICD-10-PCS; 2017-01-29)
PROC: B5181ZA Fluoroscopy of Superior Vena Cava using Low Osmolar Contrast, Guidance (ICD-10-PCS; 2017-01-29)
DX: K81.0 Acute cholecystitis (principal); J96.01 Acute respiratory failure with hypoxia; N39.0 Urinary tract infection, site not specified; Z68.41 Body mass index [BMI] 40.0-44.9, adult; J45.901 Unspecified asthma with (acute) exacerbation; J44.1 Chronic obstructive pulmonary disease with (acute) exacerbation; I10 Essential (primary) hypertension; I48.2 Chronic atrial fibrillation; E78.5 Hyperlipidemia, unspecified; E03.9 Hypothyroidism, unspecified; K21.9 Gastro-esophageal reflux disease without esophagitis; F32.9 Major depressive disorder, single episode, unspecified; B96.20 Unspecified Escherichia coli [E. coli] as the cause of diseases classified elsewhere; E66.01 Morbid (severe) obesity due to excess calories
CPT/HCPCS: 36415; 36569; 36600; 71010; 71275; 74176; 74220; 75989; 76700; 76937; 77001; 78226; 80048; 80053; 80076; 81001; 82803; 83605; 85025; 85027; 85379; 85610; 85730; 87040; 87070; 87075; 87077; 87086; 87088; 87186; 87205; 93005; 93010; 94640; 94660; A9537; C1729; C1751; C1894; G8978-GP; G8979-GP; J0360; J0690; J0713; J1170; J1642; J1650; J1956; J2250; J2270; J2405; J3010; J7030; J7620; Q9969

== ENCOUNTER 2017-02-19 21:23 | Emergency (ER) | payer MEDICARE, OTHER ==
[2017-02-19 23:39] LABS: ABSOLUTE BASOPHILS # (AUTO) 0.1 10^3/uL (0.0-0.2); ABSOLUTE EOSINOPHILS # (AUTO) 0.2 10^3/uL (0.0-0.6); ABSOLUTE LYMPHOCYTES (AUTO) 1.3 10^3/uL (0.5-4.7); ABSOLUTE MONOCYTES (AUTO) 0.6 10^3/uL (0.1-1.4); ABSOLUTE NEUT (AUTO) 2.7 10^3/uL (1.7-8.2); BASOPHILS % (AUTO) 1.1 % (0-2); EOSINOPHILS % (AUTO) 3.5 % (0-6); HEMATOCRIT 35.8 % (36.0-47.0); HEMOGLOBIN 11.8 g/dL (12.0-15.5); HGB HCT DIFFERENCE -0.4; LYMPHOCYTES % (AUTO) 27.5 % (13-45); MEAN CORPUSCULAR HEMOGLOBIN 29.7 pg (27.0-33.4); MEAN CORPUSCULAR HGB CONC 32.8 g/dL (32.0-36.0); MEAN CORPUSCULAR VOLUME 91 fl (80-97); MONOCYTES % (AUTO) 11.8 % (3-13); RED BLOOD COUNT 3.96 10^6/uL (3.72-5.28); SEGMENTED NEUTROPHILS % (AUTO) 56.1 % (42-78); WHITE BLOOD COUNT 4.8 10^3/uL (4.0-10.5)
[2017-02-19 23:51] LABS: ALANINE AMINOTRANSFERASE 25 U/L (9-52); ALBUMIN 2.8 g/dL (3.5-5.0); ALKALINE PHOSPHATASE 78 U/L (38-126); ANION GAP 9 (5-19); ASPARTATE AMINO TRANSFERASE 21 U/L (14-36); BILIRUBIN,DIRECT 0.1 mg/dL (0.0-0.4); BILIRUBIN,TOTAL 0.4 mg/dL (0.2-1.3); BLOOD UREA NITROGEN 13 mg/dL (7-20); CALCIUM 8.6 mg/dL (8.4-10.2); CARBON DIOXIDE 34 mmol/L (22-30); CHLORIDE 96 mmol/L (98-107); CREATININE RESULT 0.53 mg/dL (0.52-1.25); GLUCOSE 90 mg/dL (75-110); LIPASE 19.4 U/L (23-300); SODIUM 138.9 mmol/L (137-145); TOTAL PROTEIN 5.9 g/dL (6.3-8.2)
--- NOTE | 2017-02-20 01:09 | ER Document Report ---
ED General - General Chief Complaint: Nausea/Vomiting Stated Complaint: FEEDING TUBE ISSUES Cannot obtain history due to: Dementia Notes: Patient is an 81-year-old female who presents from her nursing facility with concerns of an episode of vomiting and epigastric abdominal pain. Patient was discharged from the hospital at the end of December with a cholecystostomy tube in place as treatment for acute cholecystitis. That cholecystostomy tube spontaneously fell out 2 days ago and has not yet been replaced. Family became concerned when she had recurrence of her pain with an episode of vomiting today so she was sent back to the emergency department. He herself at the time of my assessment denies any complaints and specifically denies any pain to her right upper quadrant. She has tolerated clears since the episode of vomiting. She has not had a fever. Nothing is been noted to improve or worsen her symptoms. She denies any chest pain or shortness of breath. Her primary care doctor did refer her to the emergency department today. TRAVEL OUTSIDE OF THE [place] IN LAST 30 DAYS: No - Related Data Allergies/Adverse Reactions: meperidine HCl [From Demerol] Allergy (Severe, Verified 08/22/12 17:56) Past Medical History - General Information source: Patient - Social History Smoking Status: Never Smoker Frequency of alcohol use: None Drug Abuse: None Lives with: Assisted Family History: Reviewed & Not Pertinent - Past Medical History Cardiac Medical History: Reports: Hx Atrial Fibrillation, Hx Congestive Heart Failure, Hx Hypercholesterolemia, Hx Hypertension Denies: Hx Heart Attack Pulmonary Medical History: Reports: Hx Asthma, Hx COPD, Hx Sleep Apnea - doesn' t use cpap Denies: Hx Tuberculosis Neurological Medical History: Denies: Hx Cerebrovascular Accident, Hx Seizures Endocrine Medical History: Reports: Hx Hypothyroidism GI Medical History: Reports: Hx Gastroesophageal Reflux Disease, Hx Hiatal Hernia. Denies: Hx Hepatitis, Hx Ulcer Musculoskeltal Medical History: Reports Hx Arthritis Psychiatric Medical History: Reports: Hx Depression Infectious Medical History: Denies: Hx Hepatitis Past Surgical History: Reports: Hx Appendectomy, Hx Orthopedic Surgery - bilat knee, Hx Tonsillectomy, Hx Tubal Ligation. Denies: Hx Hysterectomy, Hx Mastectomy, Hx Open Heart Surgery, Hx Pacemaker - Immunizations Hx Diphtheria, Pertussis, Tetanus Vaccination: No Hx Pneumococcal Vaccination: 09/03/12 Review of Systems - Review of Systems Notes: Constitutional: Negative for fever. HENT: Negative for sore throat. Eyes: Negative for visual changes. Cardiovascular: Negative for chest pain. Respiratory: Negative for shortness of breath. Gastrointestinal: Positive for abdominal pain and vomiting now resolved Genitourinary: Negative for dysuria. Musculoskeletal: Negative for back pain. Skin: Negative for rash. Neurological: Negative for headaches, weakness or numbness. 10 point ROS negative except as marked above and in HPI. Physical Exam - Vital signs Vitals: Temp Pulse Resp BP Pulse Ox 98.0 F 80 18 142/87 H 94 02/19/17 21:41 02/19/17 21:41 02/19/17 21:41 02/19/17 21:41 02/19/17 21:41 Interpretation: Normal Notes: PHYSICAL EXAMINATION: GENERAL: Well-appearing, well-nourished and in no acute distress. HEAD: Atraumatic, normocephalic. EYES: Pupils equal round and reactive to light, extraocular movements intact, sclera anicteric, conjunctiva are normal. ENT: nares patent, oropharynx clear without exudates. Moist mucous membranes. NECK: Normal range of motion, supple without lymphadenopathy LUNGS: Breath sounds clear to auscultation bilaterally and equal. No wheezes rales or rhonchi. HEART: Regular rate and rhythm without murmurs ABDOMEN: Soft, nontender, normoactive bowel sounds. No guarding, no rebound. No masses appreciated. EXTREMITIES: Normal range of motion, no pitting or edema. No cyanosis. NEUROLOGICAL: No focal neurological deficits. Moves all extremities spontaneously and on command. PSYCH: Seems somewhat confused but able to answer questions appropriately SKIN: Warm, Dry, normal turgor, cholecystostomy wound is open without erythema or biliary drainage Course - Re-evaluation Re-evalutation: 02/20/17 01:05 Patient presents with concerns of possible ongoing acute cholecystitis after cholecystostomy tube was placed and has been accidentally pulled. She does not have any focal right upper quadrant tenderness at time of my assessment. Right quadrant ultrasound does demonstrate gallstones with sludge but unable to visualize gallbladder. CT scan shows that the gallbladder continues to be cystic but is reduced in size relative to her prior scan. Laboratories without LFT derangements or leukocytosis. At this time I do not suspect an acute cholecystitis. I discussed this case with Dr. Phillip who is in agreement the patient does not require hospitalization or surgery at this time. Findings reviewed at length with the family who is in agreement with plan.At this time will discharge with return precautions and follow-up recommendations. Verbal discharge instructions given a the bedside and opportunity for questions given. Medication warnings reviewed. Patient is in agreement with this plan and has verbalized understanding of return precautions and the need for primary care follow-up in the next 24-72 hours. - Vital Signs Vital signs: Temp Pulse Resp BP Pulse Ox 98.0 F 80 18 142/87 H 94 02/19/17 21:41 02/19/17 21:41 02/19/17 21:41 02/19/17 21:41 02/19/17 21:41 - Laboratory Result Diagrams: 02/19/17 23:30 02/19/17 23:30 Laboratory results interpreted by me: 02/19/17 02/19/17 23:30 23:30 Hgb 11.8 L Hct 35.8 L Chloride 96 L Carbon Dioxide 34 H Total Protein 5.9 L Albumin 2.8 L Lipase 19.4 L - Diagnostic Test Radiology reviewed: Reports reviewed Discharge - Discharge Clinical Impression: Cholelithiasis Qualifiers: Cholelithiasis location: gallbladder Cholecystitis presence: without cholecystitis Biliary obstruction: without biliary obstruction Qualified Code(s) : K80.20 - Calculus of gallbladder without cholecystitis without obstruction Condition: Good Disposition: HOME, SELF-CARE Additional Instructions: The imaging and labs today do not suggest ongoing acute cholecystitis. I have discussed the case today with her surgeon who agrees that you do not immediately need to have the tube replaced or emergent surgery. You will need to follow-up as scheduled with Dr. Booth and Dr. Mccullough regarding ongoing management. Return if you develop persistent vomiting, fever greater than 100.4 F, worsening pain, or any other symptoms that are worrisome to you. Referrals: NIKKI MCCULLOUGH MD [Primary Care Provider] - Follow up as needed
[2017-02-20 04:18] VITALS: BP 156/90
== END 2017-02-20 04:38 | disposition home or self-care (01) ==
LOC: ER 21:23
DX: K80.20 Calculus of gallbladder without cholecystitis without obstruction (principal); R11.2 Nausea with vomiting, unspecified; R10.13 Epigastric pain; I48.91 Unspecified atrial fibrillation; I50.9 Heart failure, unspecified; E78.00 Pure hypercholesterolemia, unspecified; I11.0 Hypertensive heart disease with heart failure; J44.9 Chronic obstructive pulmonary disease, unspecified; K21.9 Gastro-esophageal reflux disease without esophagitis; Z98.51 Tubal ligation status
CPT/HCPCS: 36415; 74176; 76705; 80053; 83690; 85025; 99284

== ENCOUNTER 2017-03-16 19:22 | Inpatient (IN) | payer MEDICARE, OTHER ==
--- NOTE | 2017-03-16 19:37 | ER Document Report ---
ED General - General Stated Complaint: FEVER Time Seen by Provider: 03/16/17 19:31 Mode of Arrival: Stretcher Information source: Patient TRAVEL OUTSIDE OF THE [place] IN LAST 30 DAYS: No - HPI Patient complains to provider of: fever Onset: This afternoon Onset/Duration: Sudden Quality of pain: No pain Associated symptoms: Fever Exacerbated by: Denies Relieved by: Denies Similar symptoms previously: Yes Notes: Patient is an 81-year-old female sent from [facility] for complaints of fever of 101.2, was given 650 of Tylenol prior to coming to the emergency room, initially she complained of some lower abdominal pain and chest pain with a cough, however at time of my evaluation she denies any complaints of pain, patient denies chest pain or shortness breath, no cough, no nausea, vomiting or diarrhea - Related Data Allergies/Adverse Reactions: meperidine HCl [From Demerol] Allergy (Severe, Verified 08/22/12 17:56) Past Medical History - General Information source: Patient, Emergency Med Personnel - Social History Smoking Status: Unknown if Ever Smoked Family History: Reviewed & Not Pertinent - Past Medical History Cardiac Medical History: Reports: Hx Atrial Fibrillation, Hx Congestive Heart Failure, Hx Hypercholesterolemia, Hx Hypertension Denies: Hx Heart Attack Pulmonary Medical History: Reports: Hx Asthma, Hx COPD, Hx Sleep Apnea - doesn' t use cpap Denies: Hx Tuberculosis Neurological Medical History: Denies: Hx Cerebrovascular Accident, Hx Seizures Endocrine Medical History: Reports: Hx Hypothyroidism GI Medical History: Reports: Hx Gastroesophageal Reflux Disease, Hx Hiatal Hernia. Denies: Hx Hepatitis, Hx Ulcer Musculoskeltal Medical History: Reports Hx Arthritis Psychiatric Medical History: Reports: Hx Depression Infectious Medical History: Denies: Hx Hepatitis Past Surgical History: Reports: Hx Appendectomy, Hx Orthopedic Surgery - bilat knee, Hx Tonsillectomy, Hx Tubal Ligation. Denies: Hx Hysterectomy, Hx Mastectomy, Hx Open Heart Surgery, Hx Pacemaker - Immunizations Hx Diphtheria, Pertussis, Tetanus Vaccination: No Hx Pneumococcal Vaccination: 09/03/12 Review of Systems - Review of Systems Constitutional: Fever EENT: No symptoms reported Cardiovascular: See HPI Respiratory: See HPI Gastrointestinal: See HPI Genitourinary: No symptoms reported Female Genitourinary: No symptoms reported Musculoskeletal: No symptoms reported Skin: No symptoms reported Hematologic/Lymphatic: No symptoms reported Neurological/Psychological: No symptoms reported -: Yes All other systems reviewed and negative Physical Exam - Vital signs Vitals: Temp Pulse Resp BP Pulse Ox 99.2 F 97 20 113/85 97 03/16/17 19:36 03/16/17 19:36 03/16/17 19:36 03/16/17 19:36 03/16/17 19:36 - General General appearance: Alert In distress: None - HEENT Head: Normocephalic, Atraumatic Eyes: Normal Conjunctiva: Normal Extraocular movements intact: Yes Eyelashes: Normal Pupils: PERRL - Respiratory Respiratory status: No respiratory distress Chest status: Nontender Breath sounds: Normal Chest palpation: Normal - Cardiovascular Rhythm: Regular Heart sounds: Normal auscultation Murmur: No - Abdominal Inspection: Normal Distension: No distension Bowel sounds: Normal Tenderness: Tender - Suprapubic Organomegaly: No organomegaly - Back Back: Normal, Nontender - Extremities General upper extremity: Normal inspection, Nontender, Normal color, Normal ROM , Normal temperature General lower extremity: Normal inspection, Nontender, Edema, Normal color, Normal ROM, Normal temperature, Normal weight bearing. No: Teri's sign - Neurological Neuro grossly intact: Yes Cognition: Normal Orientation: AAOx4 Tonya Coma Scale Eye Opening: Spontaneous [place] Coma Scale Verbal: Oriented [place] Coma Scale Motor: Obeys Commands Tony[place] Coma Scale Total: 15 Speech: Normal Motor strength normal: LUE, RUE, LLE, RLE Sensory: Normal - Psychological Associated symptoms: Normal affect, Normal mood - Skin Skin Temperature: Warm Skin Moisture: Dry Skin Color: Normal Course - Re-evaluation Re-evalutation: 03/17/17 00:35 Patient was discussed with Dr. Mccullough who agrees to admit for further evaluation and treatment - Vital Signs Vital signs: Temp Pulse Resp BP Pulse Ox 99.2 F 97 18 109/71 97 03/16/17 19:36 03/16/17 19:36 03/16/17 21:01 03/16/17 21:01 03/16/17 22:25 - Laboratory Result Diagrams: 03/16/17 19:59 03/16/17 19:59 Laboratory results interpreted by me: 03/16/17 03/16/17 03/16/17 19:59 19:59 19:59 Hgb 11.5 L Hct 34.9 L RDW 14.9 H Seg Neuts % (Manual) 93 H Band Neutrophils % 2 L Lymphocytes % (Manual) 3 L Monocytes % (Manual) 2 L Abs Neuts (Manual) 9.2 H Abs Lymphs (Manual) 0.3 L VBG HCO3 33.5 H Chloride 96 L Carbon Dioxide 31 H Glucose 185 H Lactic Acid Total Bilirubin 2.2 H Direct Bilirubin 1.6 H AST 491 H ALT 157 H Alkaline Phosphatase 246 H Total Protein 5.7 L Albumin 2.7 L Urine Protein Urine Urobilinogen 03/16/17 03/16/17 20:10 20:15 Hgb Hct RDW Seg Neuts % (Manual) Band Neutrophils % Lymphocytes % (Manual) Monocytes % (Manual) Abs Neuts (Manual) Abs Lymphs (Manual) VBG HCO3 Chloride Carbon Dioxide Glucose Lactic Acid 4.5 H Total Bilirubin Direct Bilirubin AST ALT Alkaline Phosphatase Total Protein Albumin Urine Protein 30 H Urine Urobilinogen 4.0 H - Diagnostic Test Radiology reviewed: Image reviewed, Reports reviewed Discharge - Discharge Clinical Impression: Elevated liver enzymes Fever Qualifiers: Fever type: unspecified Qualified Code(s): R50.9 - Fever, unspecified Abdominal pain Qualifiers: Abdominal location: generalized Qualified Code(s): R10.84 - Generalized abdominal pain Condition: Fair Disposition: ADMITTED INPATIENT Admitting Provider: [facility] Unit Admitted: Medical Floor Referrals: NIKKI MCCULLOUGH MD [Primary Care Provider] - Follow up as needed
[2017-03-16 20:30] LABS: VENOUS BLOOD HCO3 33.5 mmol/L (20-32); VENOUS BLOOD PCO2 56.4 mmHg (35-63); VENOUS BLOOD PH 7.39 (7.30-7.42)
[2017-03-16 20:34] LABS: HEMATOCRIT 34.9 % (36.0-47.0); HEMOGLOBIN 11.5 g/dL (12.0-15.5); HGB HCT DIFFERENCE -0.4; MEAN CORPUSCULAR HEMOGLOBIN 29.9 pg (27.0-33.4); MEAN CORPUSCULAR HGB CONC 33.1 g/dL (32.0-36.0); MEAN CORPUSCULAR VOLUME 91 fl (80-97); RED BLOOD COUNT 3.86 10^6/uL (3.72-5.28); RED CELL DISTRIBUTION WIDTH 14.9 % (11.5-14.0); WHITE BLOOD COUNT 9.7 10^3/uL (4.0-10.5)
[2017-03-16 20:42] LABS: APPEARANCE,URINE SLIGHTLY-CLOUDY; BILIRUBIN,URINE NEGATIVE (NEGATIVE); GLUCOSE, URINE NEGATIVE (NEGATIVE); KETONES,URINE NEGATIVE (NEGATIVE); LEUKOCYTE ESTERASE,URINE NEGATIVE (NEGATIVE); NITRITE,URINE NEGATIVE (NEGATIVE); PROTEIN,URINE 30 mg/dL (NEGATIVE); URINE SPECIFIC GRAVITY 1.016
[2017-03-16 20:51] LABS: BAND NEUTROPHILS % (MANUAL) 2 % (3-5); BASOPHILS % (MANUAL) 0 % (0-2); EOSINOPHILS % (MANUAL) 0 % (0-6); LYMPHOCYTES % (MANUAL) 3 % (13-45); TOTAL CELLS COUNTED 100
[2017-03-16 20:52] LABS: ALANINE AMINOTRANSFERASE 157 U/L (9-52); ALBUMIN 2.7 g/dL (3.5-5.0); ALKALINE PHOSPHATASE 246 U/L (38-126); ANION GAP 11 (5-19); ASPARTATE AMINO TRANSFERASE 491 U/L (14-36); BILIRUBIN,DIRECT 1.6 mg/dL (0.0-0.4); BILIRUBIN,TOTAL 2.2 mg/dL (0.2-1.3); BLOOD UREA NITROGEN 15 mg/dL (7-20); CALCIUM 8.7 mg/dL (8.4-10.2); CARBON DIOXIDE 31 mmol/L (22-30); CHLORIDE 96 mmol/L (98-107); CREATININE RESULT 0.59 mg/dL (0.52-1.25); GLUCOSE 185 mg/dL (75-110); POTASSIUM 3.8 mmol/L (3.6-5.0); TOTAL PROTEIN 5.7 g/dL (6.3-8.2)
[2017-03-16 20:53] LABS: ANISOCYTOSIS SLIGHT; OVALOCYTES SLIGHT; POIKILOCYTOSIS SLIGHT
[2017-03-16 21:02] LABS: LIPASE 141.3 U/L (23-300)
[2017-03-16 21:03] LABS: PROTHROMBIN TIME 13.8 SEC (11.4-15.4)
--- NOTE | 2017-03-16 22:13 | EKG REPORT ---
SEVERITY:- ABNORMAL ECG - ATRIAL FIBRILLATION : Confirmed by: Carmelina Plaza MD 16-Mar-2017 22:12:29
[2017-03-17] MEDS ORDERED: CEFTRIAXONE 1 GM/D5W RTU 50 ML IV ONE (00:28)
[2017-03-17] MEDS ORDERED: ASPIRIN 81 MG TABLET, CHEWABLE ONE (14:12)
[2017-03-17] MEDS ORDERED: METOPROLOL SUCCINATE 50 MG TAB.SR.24H PO ONE (14:12)
[2017-03-17] MEDS ORDERED: ALPRAZOLAM 0.5 MG TABLET ONE (14:13)
[2017-03-17] MEDS ORDERED: LEVOTHYROXINE SODIUM 0.088 MG TABLET ONE (14:13)
[2017-03-17] MEDS ORDERED: OXYCODONE HCL IR 5 MG TABLET ONE (14:50)
[2017-03-17] MEDS ORDERED: BISACODYL 10 MG SUPP.RECT PR PRN (20:21)
--- NOTE | 2017-03-17 21:41 | PDOC H&P ---
History of Present Illness Admission Date/PCP: 03/17/17 01:49 NIKKI MCCULLOUGH MD History of Present Illness: GIUSEPPE RINCON is a 81 year old female, she was transferred from the custodial to the emergency room because of fever, abdominal pain, nausea and diminished food intake she was recently admitted in this hospital on January 18, 2017 when she had acute calculus cholecystitis due to E. coli and also E. coli UTI with associated acute hypoxemic respiratory failure. [facility]. In the emergency room she was evaluated ultrasound of the abdomen was done and showed gallstones also found was a 2.3 cm hypoechoic indeterminate lesion on of the right mid kidney which was present from previous CAT scan done for 01/18/2017. She was also found to elevated liver enzymes with elevated direct bilirubin the pattern of the liver enzymes is consistent t with obstructive jaundice. The ultrasound of the abdomen done did not show dilated common bile duct or intrahepatic duct. Past Medical History Cardiac Medical History: Reports: Atrial Fibrillation, Congestive Heart Failure , Hyperlipidema, Hypertension Pulmonary Medical History: Reports: Asthma, Chronic Obstructive Pulmonary Disease (COPD), Sleep Apnea - doesn't use cpap Endocrine Medical History: Reports: Hypothyroidism GI Medical History: Reports: Gastroesophageal Reflux Disease, Hiatal Hernia Musculoskeltal Medical History: Reports: Arthritis Psychiatric Medical History: Reports: Depression Past Surgical History Past Surgical History: Reports: Appendectomy, Orthopedic Surgery - bilat knee, Tonsillectomy, Tubal Ligation Social History Smoking Status: Unknown if Ever Smoked Frequency of Alcohol Use: None Hx Recreational Drug Use: No Hx Prescription Drug Abuse: No - Advance Directive Resuscitation Status: Full Code Family History Family History: Reviewed & Not Pertinent Parental Family History Reviewed: Yes Children Family History Reviewed: Yes Sibling(s) Family History Reviewed.: Yes Medication/Allergy Home Medications: Alprazolam 1 mg PO BIDP PRN 08/22/12 Levothyroxine Sodium [Synthroid 0.088 mg Tablet] 88 mcg PO 0600 08/22/12 Metoprolol Succinate [Toprol XL 200 mg Tablet] 200 mg PO DAILY 07/17/14 Ipratropium/Albuterol Sulfate [Duoneb 3 ml Ampul] 3 ml NEB [id number] PRN #0 vial.neb 01/27/17 Aspirin [Aspirin 81 mg Chewable Tablet] 81 mg PO DAILY 03/17/17 Bisacodyl [Dulcolax 10 mg Supp.rect] 10 mg NM DAILYP PRN 03/17/17 Hydrocodone/Acetaminophen [Chisholm 10-325 mg Tablet] 1 tab PO Q8HP PRN 03/17/17 Allergies/Adverse Reactions: meperidine HCl [From Demerol] Allergy (Severe, Verified 08/22/12 17:56) Review of Systems Constitutional: PRESENT: chills Eyes: ABSENT: visual disturbances Ears: ABSENT: hearing changes Cardiovascular: ABSENT: chest pain, dyspnea on exertion, edema, orthropnea, palpitations Respiratory: ABSENT: cough, hemoptysis Gastrointestinal: PRESENT: abdominal pain Genitourinary: ABSENT: dysuria, hematuria Musculoskeletal: ABSENT: joint swelling Integumentary: ABSENT: rash, wounds Neurological: ABSENT: abnormal gait, abnormal speech, confusion, dizziness, focal weakness, syncope Psychiatric: ABSENT: anxiety, depression, homidical ideation, suicidal ideation Endocrine: ABSENT: cold intolerance, heat intolerance, menstrual abnormalities, polydipsia, polyuria Hematologic/Lymphatic: ABSENT: easy bleeding, easy bruising, lymphadenopathy Physical Exam Vital Signs: Temp Pulse Resp BP Pulse Ox 97.9 F 97 22 H 156/106 H 97 03/17/17 03:00 03/16/17 19:36 03/17/17 03:01 03/17/17 03:01 03/17/17 02:01 General appearance: PRESENT: no acute distress, well-developed, well-nourished Head exam: PRESENT: atraumatic, normocephalic Eye exam: PRESENT: conjunctiva pink, EOMI, PERRLA. ABSENT: scleral icterus Ear exam: PRESENT: normal external ear exam Mouth exam: PRESENT: moist, tongue midline Neck exam: PRESENT: full ROM Cardiovascular exam: PRESENT: RRR, +S1, +S2 Pulses: PRESENT: normal dorsalis pedis pul, +2 pedal pulses bilateral Vascular exam: PRESENT: normal capillary refill GI/Abdominal exam: PRESENT: normal bowel sounds, soft Rectal exam: PRESENT: deferred Neurological exam: PRESENT: alert, awake, oriented to person, oriented to place , oriented to time, oriented to situation, CN II-XII grossly intact Psychiatric exam: PRESENT: appropriate affect, normal mood Skin exam: PRESENT: dry, intact, warm Results Impressions: Chest X-Ray 03/16/17 19:25 IMPRESSION: NO ACUTE RADIOGRAPHIC FINDING IN THE CHEST. Abdomen Ultrasound 03/16/17 21:12 IMPRESSION: 1. Indeterminate 2.2 cm hypoechoic lesion of the right kidney may indicate a hemorrhagic cyst ; other neoplasm cannot be excluded. Consider further evaluation with dynamic contrast CT of the kidneys or ultrasound surveillance in 3 months. 2. Cholelithiasis. 3. Partially obscured pancreas and aorta. Assessment & Plan - Diagnosis (1) Obstructive jaundice Is this a current diagnosis for this admission?: YesPlan: The etiology is not clear,differential diagnoses will include choledocholithiasis, neoplasm of the head of the pancreas (2) Cholelithiases Qualifiers: Cholelithiasis location: gallbladder Cholecystitis acuity: unspecified acuity Biliary obstruction: without biliary obstruction Is this a current diagnosis for this admission?: Yes (3) Gram positive septicemia Is this a current diagnosis for this admission?: YesPlan: Blood culture is growing gram negative rods, the last time she was in the hospital she grew E. coli in the blood on also in the gallbladder fluid. She is presently empirically on IV antibiotic
[2017-03-18] MEDS: ALPRAZOLAM 0.5 MG TABLET PO SCH ×3 (01:14→21:51)
[2017-03-18] MEDS: NORMAL SALINE 10 ML SDV (SCHEDULED) IV SCH ×4 (01:14→22:50)
[2017-03-18] MEDS: HYDROCODONE/ACETAMINOPHEN 10-325 MG TABLET PO PRN ×2 (01:16→17:49)
[2017-03-18 05:14] LABS: ALANINE AMINOTRANSFERASE 106 U/L (9-52); ALBUMIN 2.5 g/dL (3.5-5.0); ALKALINE PHOSPHATASE 213 U/L (38-126); ANION GAP 10 (5-19); ASPARTATE AMINO TRANSFERASE 151 U/L (14-36); BILIRUBIN,DIRECT 1.4 mg/dL (0.0-0.4); BILIRUBIN,TOTAL 2.1 mg/dL (0.2-1.3); BLOOD UREA NITROGEN 14 mg/dL (7-20); CALCIUM 8.2 mg/dL (8.4-10.2); CARBON DIOXIDE 30 mmol/L (22-30); CHLORIDE 97 mmol/L (98-107); CREATININE RESULT 0.52 mg/dL (0.52-1.25); GLUCOSE 91 mg/dL (75-110); POTASSIUM 3.4 mmol/L (3.6-5.0); SODIUM 136.7 mmol/L (137-145); TOTAL PROTEIN 5.3 g/dL (6.3-8.2)
[2017-03-18] MEDS: AMPICILLIN SODIUM/SULBACTAM NA 3 GM in NORMAL SALINE 100 ML IV SCH ×3 (05:59→21:51)
[2017-03-18] MEDS: LEVOTHYROXINE SODIUM 0.088 MG TABLET PO SCH (07:57)
[2017-03-18 09:05] LABS: HEMOGLOBIN 10.7 g/dL (12.0-15.5); HGB HCT DIFFERENCE 0.1; MEAN CORPUSCULAR HEMOGLOBIN 30.3 pg (27.0-33.4); MEAN CORPUSCULAR HGB CONC 33.5 g/dL (32.0-36.0); MEAN CORPUSCULAR VOLUME 91 fl (80-97); RED BLOOD COUNT 3.54 10^6/uL (3.72-5.28); RED CELL DISTRIBUTION WIDTH 15.6 % (11.5-14.0); WHITE BLOOD COUNT 5.2 10^3/uL (4.0-10.5)
[2017-03-18] MEDS: ASPIRIN 81 MG TABLET, CHEWABLE PO SCH (09:19)
[2017-03-18] MEDS: METOPROLOL SUCCINATE 50 MG TAB.SR.24H PO SCH (09:19)
[2017-03-18] MEDS: ENOXAPARIN SODIUM INJ 40 MG/0.4 ML DISP.SYRIN SUBCUT SCH (09:20)
[2017-03-18 09:31] LABS: PROTHROMBIN TIME 15.1 SEC (11.4-15.4)
[2017-03-18 09:32] LABS: PARTIAL THROMBOPLASTIN TIME 45.6 SEC (23.5-35.8)
--- NOTE | 2017-03-18 10:18 | CONSULT/HISTORY AND PHYSICAL E ---
Consultation/History and Physical PATIENT NAME: GIUSEPPE RINCON : 1935 AGE: 81Y DATE: 03/18/2017 ROOM: 404 INTERVAL HISTORY AND PHYSICAL REFERRING PHYSICIAN: Dr. Arnold. REASON FOR CONSULTATION: Abdominal pain. HISTORY OF PRESENT ILLNESS: The patient is an 81-year-old female with multiple medical problems. The patient was seen by Surgery in December of this year because of acute cholecystitis. Because of significant medical problems, a cholecystotomy tube was recommended rather than cholecystectomy. She improved with cholecystotomy tube placement and was then transferred to a custodial. Over a week ago, the cholecystotomy tube had fallen out. She had a follow-up ultrasound which did not reveal any significant abnormalities such as wall thickening or pericholecystic fluid. She now had fever and some epigastric pain overnight but has now since resolved. She denies any current nausea, vomiting, or abdominal pain. For past medical history, surgical, medications, allergies see previous H and P. PHYSICAL EXAMINATION: VITAL SIGNS: Temperature is 97.9. Heart rate 81. Blood pressure 140/94. GENERAL: The patient is lying in bed, not in any significant distress at the current time. HEENT: Eyes nonicteric. NECK: No lymphadenopathy. HEART: Regular. LUNGS: Diminished. ABDOMEN: Obese, nontender. EXTREMITIES: Trace edema. NEUROLOGICAL: The patient appears to be neurologically intact. DIAGNOSTIC DATA: White blood cell count 9.7, hemoglobin 11.5. Total bilirubin of 2.2, direct 1.6, AST of 491, ALT of 157, alkaline phosphatase of 246. ASSESSMENT: Recent history of acute cholecystitis, improved after cholecystotomy tube placement and antibiotics. The patient now presents overnight with a low-grade fever and abdominal pain that has now since resolved. Her white blood cell count is normal and not having any abdominal pain. However, she does have mildly elevated liver function tests. I would recommend following these with repeat in the morning. Consider obtaining an magnetic resonance cholangiopancreatography to rule out common bile duct stone. This could be also from inflammation of the gallbladder, although her recent ultrasound does not show any inflammation in the gallbladder or any fluid at this time. PLAN: 1. I would recommend cardiac evaluation that would be needed prior to any surgical removal of her gallbladder. Ones that have had acute cholecystitis and then cholecystotomy tube are very difficult to remove, and she most likely would be converted to an open cholecystectomy. She does have multiple other medical problems and has poor mobility which would make her medical condition difficult for her to pull through any surgical intervention. 2. Follow up liver function tests in the morning. 3. MRCP to rule out common bile duct stone. 4. She may be considered for another cholecystotomy tube placement, although she has minimal fluid in the gallbladder at this time. 5. Continue antibiotics. DICTATING PHYSICIAN: EVGENY NICE M.D. [id number] PHY#: [id number] ID: [id number] JOB#: [id number] ACCT: [id number] cc:NIKKI ARNOLD M.D., STEPHEN M.D. >
--- NOTE | 2017-03-18 11:29 | PDOC PROGRESS REPORT ---
Subjective Progress Note for:: 03/18/17 Subjective:: denies abdominal pain Physical Exam Vital Signs: Temp Pulse Resp BP Pulse Ox 98.3 F 79 19 136/97 H 94 03/18/17 08:48 03/18/17 08:48 03/18/17 08:48 03/18/17 08:48 03/18/17 08:48 Intake & Output 03/17/17 03/18/17 03/19/17 06:59 06:59 06:59 Intake Total 1490 Balance 1490 General appearance: PRESENT: no acute distress, cooperative GI/Abdominal exam: PRESENT: other - soft, nd, ntp Results Laboratory Results: 03/18/17 04:02 03/18/17 04:02 03/18/17 03/18/17 04:02 04:02 WBC 5.2 RBC 3.54 L Hgb 10.7 L Hct 32.0 L MCV 91 MCH 30.3 MCHC 33.5 RDW 15.6 H Plt Count 165 Sodium 136.7 L Potassium 3.4 L Chloride 97 L Carbon Dioxide 30 Anion Gap 10 BUN 14 Creatinine 0.52 Est GFR ( Amer) > 60 Est GFR (Non-Af Amer) > 60 Glucose 91 Calcium 8.2 L Total Bilirubin 2.1 H AST 151 H ALT 106 H Alkaline Phosphatase 213 H Total Protein 5.3 L Albumin 2.5 L Impressions: Chest X-Ray 03/16/17 19:25 IMPRESSION: NO ACUTE RADIOGRAPHIC FINDING IN THE CHEST. Abdomen Ultrasound 03/16/17 21:12 IMPRESSION: 1. Indeterminate 2.2 cm hypoechoic lesion of the right kidney may indicate a hemorrhagic cyst ; other neoplasm cannot be excluded. Consider further evaluation with dynamic contrast CT of the kidneys or ultrasound surveillance in 3 months. 2. Cholelithiasis. 3. Partially obscured pancreas and aorta. Assessment & Plan - Diagnosis (1) Elevated liver enzymes Is this a current diagnosis for this admission?: YesPlan: of unclear etiology. pending MRCP to r/o CBD stones.
--- NOTE | 2017-03-18 13:51 | XCELERA REPORT ---
[address] [address] Transthoracic Echocardiogram Report Name: GIUSEPPE RINCON Age: 81 yrs Gender: Female : 1935 Patient Status: Inpatient Patient Location: 4N\S\404\S\B Study Date: 03/18/2017 09:35 AM Height: 65 in Weight: 275 lb BSA: 2.3 m2 Procedure: A complete two-dimensional transthoracic echocardiogram was performed (2D, M-mode, spectral and color flow Doppler). The study was technically difficult with many images being suboptimal in quality. Reason For Study: Preop cardiovascular evaluation, atrial fibrillati Ordering Physician: JUAN MAYA Performed By: Chanda Mckeon Interpretation Summary The left ventricular ejection fraction is normal. There is mild concentric left ventricular hypertrophy. The left ventricle is grossly normal size. Wall motion cannot be accurately commented on, but no definite regional wall motion abnormalities noted. LV diastolic function could not be adequately assessed due to atrial fibrilation. The right ventricle is mildly dilated. The right ventricular systolic function is normal. The right atrium is mild to moderately dilated. The left atrium is severely dilated. There is a mild to moderate amount of mitral regurgitation There is no mitral valve stenosis. There is a mild amount of aortic regurgitation There is no aortic valve stenosis There is a mild amount of tricuspid regurgitation There is mild to moderate pulmonary hypertension by echo Right ventricular systolic pressure is estimated to be elevated at 40- 50mmHg. The aortic root is not well visualized. The inferior vena cava appeared normal and decreased < 50% with respiration (RAP 10-15 mmHg) There is no pericardial effusion. MMode/2D Measurements \T\ Calculations RVDd: 3.9 cm LVIDd: 4.7 cm FS: 31.6 % Ao root diam: 3.0 cm IVSd: 1.2 cm LVIDs: 3.2 cm EDV(Teich): LVPWd: 1.2 cm 102.5 ml Ao root area: 6.9 cm2 ESV(Teich): LA dimension: 6.4 cm 41.4 ml EF(Teich): 59.6 % LA A2Cs: LA A4Cs: LA length: 8.1 cmLA Vol Index (BP): 46.7 cm2 52.2 cm2 112.5 ml/m2 LA Volume: 254.9 ml Doppler Measurements \T\ Calculations MV E max abdullahi: MV P1/2t max abdullahi: Ao V2 max: AI max abdullahi: 143.6 cm/sec 143.6 cm/sec 121.1 cm/sec 380.1 cm/sec MV A max abdullahi: MV P1/2t: 53.0 msec Ao max PG: AI max P.6 cm/sec 5.9 mmHg 57.8 mmHg MV E/A: 5.0 MVA(P1/2t): 4.2 cm2 AI dec slope: MV dec slope: 794.4 cm/sec2 192.4 cm/sec2 MV dec time: AI P1/2t: 0.18 sec 578.7 msec LV V1 max PG: PA V2 max: TR max abdullahi: 2.9 mmHg 64.7 cm/sec 312.7 cm/sec LV V1 max: PA max P.7 mmHg TR max P.4 cm/sec 39.1 mmHg Left Ventricle The left ventricle is grossly normal size. There is mild concentric left ventricular hypertrophy. The left ventricular ejection fraction is normal. LV diastolic function could not be adequately assessed due to atrial fibrilation. Wall motion cannot be accurately commented on, but no definite regional wall motion abnormalities noted. Right Ventricle The right ventricle is mildly dilated. There is normal right ventricular wall thickness. The right ventricular systolic function is normal. Atria The right atrium is mild to moderately dilated. The left atrium is severely dilated. Interarterial septum not well visualized and not well dopplered. Cannot comment on ASD/PFO presence. Mitral Valve There is mild mitral annular calcification. There is no mitral valve stenosis. There is a mild to moderate amount of mitral regurgitation. Aortic Valve The aortic valve is mildly calcified. There is no aortic valve stenosis. There is a mild amount of aortic regurgitation. Tricuspid Valve The tricuspid valve is not well visualized secondary to technical limitations. There is no tricuspid stenosis. There is a mild amount of tricuspid regurgitation. There is mild to moderate pulmonary hypertension by echo. Right ventricular systolic pressure is estimated to be elevated at 40-50mmHg. Pulmonic Valve The pulmonic valve is not well visualized. Great Vessels The aortic root is not well visualized. The inferior vena cava appeared normal and decreased < 50% with respiration (RAP 10-15 mmHg). Effusions There is no pericardial effusion. : JUAN MAYA > Juan Maya
--- NOTE | 2017-03-18 18:52 | PDOC PROGRESS REPORT ---
Subjective Progress Note for:: 03/18/17 Subjective:: She was seen by the bedside, MRCP was done today and it was negative for any obstruction. Physical Exam Vital Signs: Temp Pulse Resp BP Pulse Ox 98.2 F 85 17 140/110 H 99 03/18/17 16:00 03/18/17 16:00 03/18/17 16:00 03/18/17 16:00 03/18/17 16:00 Intake & Output 03/17/17 03/18/17 03/19/17 06:59 06:59 06:59 Intake Total 1490 100 Balance 1490 100 General appearance: PRESENT: no acute distress Eye exam: PRESENT: PERRLA Respiratory exam: PRESENT: clear to auscultation mary Cardiovascular exam: PRESENT: +S1, +S2 GI/Abdominal exam: PRESENT: soft Neurological exam: PRESENT: alert, CN II-XII grossly intact Results Laboratory Results: 03/18/17 04:02 03/18/17 04:02 03/18/17 03/18/17 04:02 04:02 WBC 5.2 RBC 3.54 L Hgb 10.7 L Hct 32.0 L MCV 91 MCH 30.3 MCHC 33.5 RDW 15.6 H Plt Count 165 Sodium 136.7 L Potassium 3.4 L Chloride 97 L Carbon Dioxide 30 Anion Gap 10 BUN 14 Creatinine 0.52 Est GFR ( Amer) > 60 Est GFR (Non-Af Amer) > 60 Glucose 91 Calcium 8.2 L Total Bilirubin 2.1 H AST 151 H ALT 106 H Alkaline Phosphatase 213 H Total Protein 5.3 L Albumin 2.5 L Impressions: Chest X-Ray 03/16/17 19:25 IMPRESSION: NO ACUTE RADIOGRAPHIC FINDING IN THE CHEST. Abdomen Ultrasound 03/16/17 21:12 IMPRESSION: 1. Indeterminate 2.2 cm hypoechoic lesion of the right kidney may indicate a hemorrhagic cyst ; other neoplasm cannot be excluded. Consider further evaluation with dynamic contrast CT of the kidneys or ultrasound surveillance in 3 months. 2. Cholelithiasis. 3. Partially obscured pancreas and aorta. Abdomen MRI 03/18/17 07:00 IMPRESSION: Cholelithiasis. No evidence of choledocholithiasis. Assessment & Plan - Diagnosis (1) Obstructive jaundice Is this a current diagnosis for this admission?: Yes (2) Cholelithiases Qualifiers: Cholelithiasis location: gallbladder Cholecystitis acuity: unspecified acuity Biliary obstruction: without biliary obstruction Is this a current diagnosis for this admission?: Yes (3) Gram positive septicemia Is this a current diagnosis for this admission?: YesPlan: She will continue IV antibiotic, she is getting a CT scan of the abdomen and pelvis with IV contrast today
[2017-03-19] MEDS: NORMAL SALINE 10 ML SDV (SCHEDULED) IV SCH ×3 (05:39→21:57)
[2017-03-19] MEDS: AMPICILLIN SODIUM/SULBACTAM NA 3 GM in NORMAL SALINE 100 ML IV SCH ×2 (05:39→13:08)
[2017-03-19 05:55] LABS: HEMATOCRIT 34.7 % (36.0-47.0); HEMOGLOBIN 11.5 g/dL (12.0-15.5); HGB HCT DIFFERENCE -0.2; MEAN CORPUSCULAR HEMOGLOBIN 30.1 pg (27.0-33.4); MEAN CORPUSCULAR HGB CONC 33.3 g/dL (32.0-36.0); MEAN CORPUSCULAR VOLUME 91 fl (80-97); RED BLOOD COUNT 3.84 10^6/uL (3.72-5.28); WHITE BLOOD COUNT 4.6 10^3/uL (4.0-10.5)
[2017-03-19] MEDS: LEVOTHYROXINE SODIUM 0.088 MG TABLET PO SCH (07:44)
[2017-03-19] MEDS: HYDROCODONE/ACETAMINOPHEN 10-325 MG TABLET PO PRN (07:46)
[2017-03-19] MEDS: ASPIRIN 81 MG TABLET, CHEWABLE PO SCH (09:16)
[2017-03-19] MEDS: METOPROLOL SUCCINATE 50 MG TAB.SR.24H PO SCH (09:16)
[2017-03-19] MEDS: ALPRAZOLAM 0.5 MG TABLET PO SCH ×2 (09:16→21:57)
[2017-03-19] MEDS: ENOXAPARIN SODIUM INJ 40 MG/0.4 ML DISP.SYRIN SUBCUT SCH (09:16)
[2017-03-19 10:41] LABS: ALANINE AMINOTRANSFERASE 67 U/L (9-52); ALBUMIN 2.5 g/dL (3.5-5.0); ALKALINE PHOSPHATASE 271 U/L (38-126); ANION GAP 8 (5-19); ASPARTATE AMINO TRANSFERASE 64 U/L (14-36); BILIRUBIN,DIRECT 0.9 mg/dL (0.0-0.4); BILIRUBIN,TOTAL 1.4 mg/dL (0.2-1.3); BLOOD UREA NITROGEN 9 mg/dL (7-20); CARBON DIOXIDE 33 mmol/L (22-30); CHLORIDE 94 mmol/L (98-107); CREATININE RESULT 0.41 mg/dL (0.52-1.25); GLUCOSE 89 mg/dL (75-110); POTASSIUM 3.1 mmol/L (3.6-5.0); SODIUM 134.9 mmol/L (137-145); TOTAL PROTEIN 5.4 g/dL (6.3-8.2)
--- NOTE | 2017-03-19 11:43 | PROGRESS NOTE E ---
Progress Note NAME: GIUSEPPE RINCON : 1935 AGE: 81Y DATE: 03/19/2017 ROOM: 404 SUBJECTIVE: She denies any abdominal pains at this time and no abdominal tenderness. OBJECTIVE: She remains afebrile with 98.4 degrees Fahrenheit temperature, heart rate is 87 per minute, blood pressure 152/104. LABORATORY: She had an MRCP, which showed no common bile duct stones or obstruction. Her white count remains normal at 4.6 and her liver enzymes showed AST decreased from 151 to 64, ALT decreased from 106 to 67, and direct total bilirubin of 2.1 to 1.4 and direct bilirubin at 1.4 to 0.9. Alkaline phosphatase, however, just still elevated, but essentially the same from yesterday. PLAN: In view that the patient is essentially asymptomatic at this time with normalizing liver function tests, the big question is to do surgery on her, which would entail an open cholecystectomy. She is relatively high risk for open surgical procedure at this time. Now that she does not have any symptoms and her labs are essentially normal, we can put a consult to the interventional radiologist and ask them if it is appropriate to reinsert a cholecystostomy tube at this time or wait for another episode of cholecystitis. I think this is the best opportunity for her to have a tube placed and leave the tube indefinitely. DICTATING PHYSICIAN: PERRY ROME M.D. [id number] PHY#: [id number] ID: [id number] JOB#: [id number] ACCT: [id number] cc: >
[2017-03-19] MEDS: POTASSI CL 20 MEQ/50 ML RIDER 20 MEQ/50 ML RTUPB IV SCH ×3 (13:57→17:52)
--- NOTE | 2017-03-19 18:23 | PDOC PROGRESS REPORT ---
Subjective Progress Note for:: 03/18/17 Subjective:: Patient seen on morning rounds. She was noted to be mildly nauseous but denied any chest pain. 2D echocardiogram shows mild to moderate mitral regurgitation, mild pulmonary hypertension but no significant stenotic lesions were noted. Patient's other evaluation was reviewed. MRCP was negative for biliary obstruction. Patient CT abdomen and pelvis showed fatty umbilical hernia. Patient claims to be comfortable. Physical Exam Vital Signs: Temp Pulse Resp BP Pulse Ox 98.2 F 78 21 H 150/94 H 96 03/19/17 15:40 03/19/17 15:40 03/19/17 15:40 03/19/17 15:40 03/19/17 15:40 Intake & Output 03/18/17 03/19/17 03/20/17 06:59 06:59 06:59 Intake Total 1490 2240 250 Balance 1490 2240 250 Exam: GENERAL: well-nourished and in no acute distress. Alert and oriented x3 HEAD: Atraumatic, normocephalic. EYES: Pupils equal round and reactive to light, extraocular movements intact, sclera anicteric, conjunctiva are normal. ENT: TMs normal, nares patent, oropharynx clear without exudates. Moist mucous membranes. No oral ulcerations or bleeding gums noted NECK: supple without lymphadenopathy. Trachea is central. No cervical or axillary lymphadenopathy noted. Carotids are 2+, JVD WNL LUNGS: Respiration seems nonlabored, no significant accessory muscle action noted. Breath sounds clear to auscultation bilaterally and equal noted. No wheezes rales or rhonchi noted. No significant dullness noted on percussion. CHEST: Palpation of the chest wall shows no significant chest wall tenderness. No other significant abnormalities noted. HEART: [employer], No PSH, 1/6 CÉSAR aortic area, 1/6 patterson systolic murmur mitral area, no rubs, no gallops. ABDOMEN: Soft, mild upper quadrant tenderness appreciated, normoactive bowel sounds. No guarding, no rebound. No rigidity noted . No masses appreciated. EXTREMITIES: Pedal pulses are 1-2+, no calf tenderness noted. No clubbing or cyanosis.trace to 1+ pedal edema noted NEUROLOGICAL: Focused neurological exam showed no significant neurologic deficit. Normal speech, no focal weakness appreciated. PSYCH: Normal mood, normal affect. Judgment and insight within normal limits. SKIN: No significant ecchymosis, rash, ulcerations or signs of pruritus noted. MUSCULOSKELETAL EXAM: No significant joint swelling noted. Results Laboratory Results: 03/19/17 05:35 03/19/17 08:18 03/19/17 03/19/17 03/19/17 05:35 08:18 16:00 WBC 4.6 RBC 3.84 Hgb 11.5 L Hct 34.7 L MCV 91 MCH 30.1 MCHC 33.3 RDW 15.0 H Plt Count 149 L Sodium 134.9 L Potassium 3.1 L Chloride 94 L Carbon Dioxide 33 H Anion Gap 8 BUN 9 Creatinine 0.41 L Est GFR ( Amer) > 60 Est GFR (Non-Af Amer) > 60 Glucose 89 Calcium 8.0 L Total Bilirubin 1.4 H AST 64 H ALT 67 H Alkaline Phosphatase 271 H Total Protein 5.4 L Albumin 2.5 L Blood Type O POSITIVE Antibody Screen NEGATIVE Impressions: Chest X-Ray 03/16/17 19:25 IMPRESSION: NO ACUTE RADIOGRAPHIC FINDING IN THE CHEST. Abdomen Ultrasound 03/16/17 21:12 IMPRESSION: 1. Indeterminate 2.2 cm hypoechoic lesion of the right kidney may indicate a hemorrhagic cyst ; other neoplasm cannot be excluded. Consider further evaluation with dynamic contrast CT of the kidneys or ultrasound surveillance in 3 months. 2. Cholelithiasis. 3. Partially obscured pancreas and aorta. Abdomen/Pelvis CT 03/18/17 00:00 IMPRESSION: Cholelithiasis. Abdomen MRI 03/18/17 07:00 IMPRESSION: Cholelithiasis. No evidence of choledocholithiasis. Assessment & Plan - Diagnosis (1) Cholelithiases Qualifiers: Cholelithiasis location: gallbladder Cholecystitis acuity: unspecified acuity Biliary obstruction: without biliary obstruction Is this a current diagnosis for this admission?: Yes (2) Chronic atrial fibrillation Is this a current diagnosis for this admission?: Yes (3) Chronic obstructive pulmonary disease (COPD) Qualifiers: COPD type: unspecified COPD Qualified Code(s): J44.9 - Chronic obstructive pulmonary disease, unspecified (4) Elevated liver enzymes Is this a current diagnosis for this admission?: Yes - Notes Notes: Preop cardiovascular evaluation: 2D echocardiogram shows normal LVEF. No significant stenotic lesions were noted. Patient does have atrial fibrillation. Patient claims to be otherwise fairly active. Feel that patient is at average risk for her age for gallbladder surgery. Discussed with surgeon. Patient cleared for surgery. Would recommend DVT prophylaxis, pulmonary toilet and pain control. Chronic atrial fibrillation: Currently off chronic anticoagulation. May consider reinstituting it but patient has been very reluctant to go on it. COPD: Currently stable. Abnormal liver function test: This is getting better. MRI suggests possible cirrhosis. Further evaluation may be needed at a later date. Hypertension: Currently stable. - Time Time with patient: 15-25 minutes - CODE STATUS was discussed, patient remains full code. Surrogate decision-maker patient's spouse. Multiple medical problems were addressed. More than 50% of the time spent coordinating care, discussing management plans with involved caregivers. Management plans discussed with involved personnels. Medical decision making was of moderate to high complexity, patient's has multiple severe comorbidities.
--- NOTE | 2017-03-19 18:40 | PDOC PROGRESS REPORT ---
Subjective Progress Note for:: 03/19/17 Subjective:: Patient is doing much better. She was seen on rounds in the evening today. She is noted to be eating and saying that she is hungry. Her surgery is not yet scheduled. Possibly can be tomorrow or early next week. Patient looks comfortable. 2D echocardiogram report was reviewed with the patient. 2D echocardiogram shows mild to moderate mitral regurgitation, mild pulmonary hypertension but no significant stenotic lesions were noted. Patient's other evaluation was reviewed. MRCP was negative for biliary obstruction. Patient CT abdomen and pelvis showed fatty umbilical hernia. Patient claims to be comfortable. Physical Exam Vital Signs: Temp Pulse Resp BP Pulse Ox 98.2 F 78 21 H 150/94 H 96 03/19/17 15:40 03/19/17 15:40 03/19/17 15:40 03/19/17 15:40 03/19/17 15:40 Intake & Output 03/18/17 03/19/17 03/20/17 06:59 06:59 06:59 Intake Total 1490 2240 250 Balance 1490 2240 250 Exam: GENERAL: well-nourished and in no acute distress. Alert and oriented x3 HEAD: Atraumatic, normocephalic. EYES: Pupils equal round and reactive to light, extraocular movements intact, sclera anicteric, conjunctiva are normal. ENT: TMs normal, nares patent, oropharynx clear without exudates. Moist mucous membranes. No oral ulcerations or bleeding gums noted NECK: supple without lymphadenopathy. Trachea is central. No cervical or axillary lymphadenopathy noted. Carotids are 2+, JVD WNL LUNGS: Respiration seems nonlabored, no significant accessory muscle action noted. Breath sounds clear to auscultation bilaterally and equal noted. No wheezes rales or rhonchi noted. No significant dullness noted on percussion. CHEST: Palpation of the chest wall shows no significant chest wall tenderness. No other significant abnormalities noted. HEART: [place] [employer], No PSH, 1/6 CÉSAR aortic area, 1/6 patterson systolic murmur mitral area, no rubs, no gallops. ABDOMEN: Soft, no significant tenderness appreciated, normoactive bowel sounds. No guarding, no rebound. No rigidity noted . No masses appreciated. EXTREMITIES: Pedal pulses are 1-2+, no calf tenderness noted. No clubbing or cyanosis.trace to 1+ pedal edema noted NEUROLOGICAL: Focused neurological exam showed no significant neurologic deficit. Normal speech, no focal weakness appreciated. PSYCH: Normal mood, normal affect. Judgment and insight within normal limits. SKIN: No significant ecchymosis, rash, ulcerations or signs of pruritus noted. MUSCULOSKELETAL EXAM: No significant joint swelling noted. Results Laboratory Results: 03/19/17 05:35 03/19/17 08:18 03/19/17 03/19/17 03/19/17 05:35 08:18 16:00 WBC 4.6 RBC 3.84 Hgb 11.5 L Hct 34.7 L MCV 91 MCH 30.1 MCHC 33.3 RDW 15.0 H Plt Count 149 L Sodium 134.9 L Potassium 3.1 L Chloride 94 L Carbon Dioxide 33 H Anion Gap 8 BUN 9 Creatinine 0.41 L Est GFR ( Amer) > 60 Est GFR (Non-Af Amer) > 60 Glucose 89 Calcium 8.0 L Total Bilirubin 1.4 H AST 64 H ALT 67 H Alkaline Phosphatase 271 H Total Protein 5.4 L Albumin 2.5 L Blood Type O POSITIVE Antibody Screen NEGATIVE Impressions: Chest X-Ray 03/16/17 19:25 IMPRESSION: NO ACUTE RADIOGRAPHIC FINDING IN THE CHEST. Abdomen Ultrasound 03/16/17 21:12 IMPRESSION: 1. Indeterminate 2.2 cm hypoechoic lesion of the right kidney may indicate a hemorrhagic cyst ; other neoplasm cannot be excluded. Consider further evaluation with dynamic contrast CT of the kidneys or ultrasound surveillance in 3 months. 2. Cholelithiasis. 3. Partially obscured pancreas and aorta. Abdomen/Pelvis CT 03/18/17 00:00 IMPRESSION: Cholelithiasis. Abdomen MRI 03/18/17 07:00 IMPRESSION: Cholelithiasis. No evidence of choledocholithiasis. Assessment & Plan - Diagnosis (1) Cholelithiases Qualifiers: Cholelithiasis location: gallbladder Cholecystitis acuity: unspecified acuity Biliary obstruction: without biliary obstruction Is this a current diagnosis for this admission?: Yes (2) Chronic atrial fibrillation Is this a current diagnosis for this admission?: Yes (3) Chronic obstructive pulmonary disease (COPD) Qualifiers: COPD type: unspecified COPD Qualified Code(s): J44.9 - Chronic obstructive pulmonary disease, unspecified (4) Essential hypertension Is this a current diagnosis for this admission?: Yes - Notes Notes: As noted before, patient has been cleared for surgery. Recommend good postop pain control, DVT prophylaxis, pulmonary toilet. Chronic atrial fibrillation: Currently off chronic anticoagulation. May consider reinstituting it but patient has been very reluctant to go on it. On questioning patient denied any bleeding diathesis but will talk with patient's primary care attending. COPD: Currently stable. Abnormal liver function test: This has normalized. Hypertension: Currently stable. Will follow after surgery for a day or so. - Time Time with patient: 15-25 minutes - More than 50% of the time spent coordinating care, discussing management plans with involved caregivers. Management plans discussed with involved personnels. Medical decision making was of moderate to high complexity, patient's has multiple severe comorbidities. Medications reviewed and adjusted accordingly: Yes
--- NOTE | 2017-03-19 19:37 | PDOC PROGRESS REPORT ---
Subjective Progress Note for:: 03/19/17 Subjective:: Patient was seen by the bedside she has E. coli septicemia, it is similar to what she had the last time she was admitted to the hospital. CT scan of the abdomen and pelvis with IV contrast was done he showed gallbladder cystic enlargement of the gallbladder measuring 10 cm with cholelithiasis , mild gallbladder wall thickening. She was seen by the bedside, she was seen by the surgeon today. I discussed with the surgeon that she may need cholecystectomy, the gallbladder is the likely source of the infection/E. coli on the last admission the cholecystecostomy fluid grew E-coli Physical Exam Vital Signs: Temp Pulse Resp BP Pulse Ox 98.2 F 78 21 H 150/94 H 96 03/19/17 15:40 03/19/17 15:40 03/19/17 15:40 03/19/17 15:40 03/19/17 15:40 Intake & Output 03/18/17 03/19/17 03/20/17 06:59 06:59 06:59 Intake Total 1490 2240 490 Output Total 200 Balance 1490 2240 290 General appearance: PRESENT: mild distress Eye exam: PRESENT: PERRLA Respiratory exam: PRESENT: clear to auscultation mary Cardiovascular exam: PRESENT: +S1, +S2 GI/Abdominal exam: PRESENT: soft Neurological exam: PRESENT: alert, CN II-XII grossly intact Results Laboratory Results: 03/19/17 05:35 03/19/17 08:18 03/19/17 03/19/17 03/19/17 05:35 08:18 16:00 WBC 4.6 RBC 3.84 Hgb 11.5 L Hct 34.7 L MCV 91 MCH 30.1 MCHC 33.3 RDW 15.0 H Plt Count 149 L Sodium 134.9 L Potassium 3.1 L Chloride 94 L Carbon Dioxide 33 H Anion Gap 8 BUN 9 Creatinine 0.41 L Est GFR ( Amer) > 60 Est GFR (Non-Af Amer) > 60 Glucose 89 Calcium 8.0 L Total Bilirubin 1.4 H AST 64 H ALT 67 H Alkaline Phosphatase 271 H Total Protein 5.4 L Albumin 2.5 L Blood Type O POSITIVE Antibody Screen NEGATIVE Impressions: Chest X-Ray 03/16/17 19:25 IMPRESSION: NO ACUTE RADIOGRAPHIC FINDING IN THE CHEST. Abdomen Ultrasound 05/16/17 21:12 IMPRESSION: 1. Indeterminate 2.2 cm hypoechoic lesion of the right kidney may indicate a hemorrhagic cyst ; other neoplasm cannot be excluded. Consider further evaluation with dynamic contrast CT of the kidneys or ultrasound surveillance in 3 months. 2. Cholelithiasis. 3. Partially obscured pancreas and aorta. Abdomen/Pelvis CT 03/18/17 00:00 IMPRESSION: Cholelithiasis. Abdomen MRI 03/18/17 07:00 IMPRESSION: Cholelithiasis. No evidence of choledocholithiasis. Assessment & Plan - Diagnosis (1) Obstructive jaundice Is this a current diagnosis for this admission?: Yes (2) Cholelithiases Qualifiers: Cholelithiasis location: gallbladder Cholecystitis presence: with cholecystitis Cholecystitis acuity: acute and chronic Biliary obstruction: without biliary obstruction Qualified Code(s): K80.12 - Calculus of gallbladder with acute and chronic cholecystitis without obstruction Is this a current diagnosis for this admission?: Yes (3) Gram positive septicemia Is this a current diagnosis for this admission?: Yes (4) Escherichia coli septicemia Is this a current diagnosis for this admission?: YesPlan: Patient presently on Unasyn she will continue same treatment
--- NOTE | 2017-03-19 20:02 | PROGRESS NOTE E ---
Progress Note NAME: GIUSEPPE RINCON : 1935 AGE: 81Y DATE: 03/17/2017 ROOM: 404 The patient denies any pain at this time. Long discussion with the patient and her daughter was done and the patient eventually agreed to have her surgery, laparoscopic cholecystectomy (possible open) done. She just wants to wait for a day or 2 to further think about. At the latter part of the discussion, the attending physician called me on the phone saying that the patient has E. coli in her blood and therefore, another consideration for removal of the gallbladder. I again talked to the daughter and the patient about the presence of E. coli and this time, the patient is more agreeable to have the surgery done. She will be scheduled for laparoscopic cholecystectomy (possible open) tomorrow or Wednesday. DICTATING PHYSICIAN: PERRY ROME M.D. [id number] PHY#: [id number] ID: [id number] JOB#: [id number] ACCT: [id number] cc: >
[2017-03-19] MEDS: CEFAZOLIN 2 GM/D5W RTU 2 GM/50 ML RTUPB IV SCH (21:57)
[2017-03-19] MEDS ORDERED: CEFOTAXIME SODIUM 1 GM in DEXTROSE 5%-WATER 50 ML IV SCH (22:00)
--- NOTE | 2017-03-19 22:33 | PROGRESS NOTE E ---
Progress Note NAME: GIUSEPPE RINCON : 1935 AGE: 81Y DATE: 03/19/2017 ROOM: 404 SUBJECTIVE: I just had a long discussion with *------* the anesthesiologist about his concern about doing the procedure this weekend on this patient. Since the procedure is not a real emergency at this time, I kind of agreed with him to hold off doing the open cholecystectomy this weekend and try to continue with her medical management including IV antibiotic and continuing p.o. intake. Meantime, awaiting for cardiology clearance from Dr. Perera. Meantime, I was able to talk to the patient's daughter and told her about our plans and she agreed. DICTATING PHYSICIAN: PERRY ROME M.D. [id number] PHY#: [id number] ID: [id number] JOB#: [id number] ACCT: [id number] cc: >
[2017-03-19] MEDS ORDERED: POTASSIUM CHLORIDE 20 MEQ/15 ML UDCUP ONE (23:32)
[2017-03-20] MEDS: CEFAZOLIN 2 GM/D5W RTU 2 GM/50 ML RTUPB IV SCH ×4 (03:57→22:31)
[2017-03-20] MEDS: NORMAL SALINE 10 ML SDV (SCHEDULED) IV SCH ×3 (05:48→22:31)
[2017-03-20 06:31] LABS: HEMATOCRIT 33.6 % (36.0-47.0); HEMOGLOBIN 11.1 g/dL (12.0-15.5); HGB HCT DIFFERENCE -0.3; MEAN CORPUSCULAR HEMOGLOBIN 29.7 pg (27.0-33.4); MEAN CORPUSCULAR HGB CONC 32.9 g/dL (32.0-36.0); MEAN CORPUSCULAR VOLUME 90 fl (80-97); RED BLOOD COUNT 3.73 10^6/uL (3.72-5.28); RED CELL DISTRIBUTION WIDTH 15.4 % (11.5-14.0)
[2017-03-20 06:52] LABS: ALANINE AMINOTRANSFERASE 58 U/L (9-52); ALBUMIN 2.6 g/dL (3.5-5.0); ALKALINE PHOSPHATASE 303 U/L (38-126); ANION GAP 8 (5-19); ASPARTATE AMINO TRANSFERASE 42 U/L (14-36); BILIRUBIN,DIRECT 0.5 mg/dL (0.0-0.4); BILIRUBIN,TOTAL 0.8 mg/dL (0.2-1.3); BLOOD UREA NITROGEN 9 mg/dL (7-20); CALCIUM 8.5 mg/dL (8.4-10.2); CARBON DIOXIDE 35 mmol/L (22-30); CHLORIDE 98 mmol/L (98-107); GLUCOSE 101 mg/dL (75-110); LIPASE 10.8 U/L (23-300); POTASSIUM 3.7 mmol/L (3.6-5.0); SODIUM 141.3 mmol/L (137-145); TOTAL PROTEIN 5.5 g/dL (6.3-8.2)
[2017-03-20] MEDS: LEVOTHYROXINE SODIUM 0.088 MG TABLET PO SCH (08:56)
[2017-03-20] MEDS: METOPROLOL SUCCINATE 50 MG TAB.SR.24H PO SCH (10:54)
[2017-03-20] MEDS: ASPIRIN 81 MG TABLET, CHEWABLE PO SCH (10:54)
--- NOTE | 2017-03-20 10:55 | PDOC PROGRESS REPORT ---
Subjective Progress Note for:: 03/20/17 Subjective:: Patient is currently doing fair patient is very drowsy this morning but denied any chest pain denied any abdominal pain patient seen by the surgery and possible scheduled for surgery on Wednesday. Patient also cleared by the cardiology Physical Exam Vital Signs: Temp Pulse Resp BP Pulse Ox 98.0 F 161 H 17 151/102 H 95 03/20/17 08:08 03/20/17 08:08 03/20/17 08:08 03/20/17 08:08 03/20/17 08:08 Intake & Output 03/19/17 03/20/17 03/21/17 06:59 06:59 06:59 Intake Total 2240 2440 Output Total 200 Balance 2240 2240 Physical Exam: Drowsy General appearance: PRESENT: no acute distress, other Head exam: PRESENT: normocephalic Respiratory exam: PRESENT: clear to auscultation mary Cardiovascular exam: PRESENT: +S1, +S2 GI/Abdominal exam: PRESENT: normal bowel sounds, soft Extremities exam: ABSENT: pedal edema Neurological exam: PRESENT: alert, awake - : Results Laboratory Results: 03/20/17 06:10 03/20/17 06:10 03/19/17 03/20/17 03/20/17 16:00 06:10 06:10 WBC 4.0 RBC 3.73 Hgb 11.1 L Hct 33.6 L MCV 90 MCH 29.7 MCHC 32.9 RDW 15.4 H Plt Count 163 Sodium 141.3 Potassium 3.7 Chloride 98 Carbon Dioxide 35 H Anion Gap 8 BUN 9 Creatinine 0.50 L Est GFR ( Amer) > 60 Est GFR (Non-Af Amer) > 60 Glucose 101 Calcium 8.5 Total Bilirubin 0.8 AST 42 H ALT 58 H Alkaline Phosphatase 303 H Total Protein 5.5 L Albumin 2.6 L Lipase 10.8 L Blood Type O POSITIVE Antibody Screen NEGATIVE Impressions: Chest X-Ray 03/16/17 19:25 IMPRESSION: NO ACUTE RADIOGRAPHIC FINDING IN THE CHEST. Abdomen Ultrasound 03/16/17 21:12 IMPRESSION: 1. Indeterminate 2.2 cm hypoechoic lesion of the right kidney may indicate a hemorrhagic cyst ; other neoplasm cannot be excluded. Consider further evaluation with dynamic contrast CT of the kidneys or ultrasound surveillance in 3 months. 2. Cholelithiasis. 3. Partially obscured pancreas and aorta. Abdomen/Pelvis CT 03/18/17 00:00 IMPRESSION: Cholelithiasis. Abdomen MRI 03/18/17 07:00 IMPRESSION: Cholelithiasis. No evidence of choledocholithiasis. Assessment & Plan - Diagnosis (1) Cholelithiases Qualifiers: Cholelithiasis location: gallbladder Cholecystitis presence: with cholecystitis Cholecystitis acuity: acute and chronic Biliary obstruction: without biliary obstruction Qualified Code(s): K80.12 - Calculus of gallbladder with acute and chronic cholecystitis without obstruction Is this a current diagnosis for this admission?: YesPlan: Follow with the surgery (2) Elevated liver enzymes Is this a current diagnosis for this admission?: YesPlan: Due to the above conditions (3) Escherichia coli septicemia Is this a current diagnosis for this admission?: YesPlan: Continues to IV antibiotic (4) Obstructive jaundice Is this a current diagnosis for this admission?: YesPlan: Continues to monitor (5) Chronic atrial fibrillation Is this a current diagnosis for this admission?: YesPlan: f/u with cardilogy (6) Chronic obstructive pulmonary disease (COPD) Qualifiers: COPD type: unspecified COPD Qualified Code(s): J44.9 - Chronic obstructive pulmonary disease, unspecified Is this a current diagnosis for this admission?: YesPlan: Get the ABG (7) Morbid obesity Qualifiers: Obesity type: due to excess calories Qualified Code(s): E66.01 - Morbid (severe) obesity due to excess calories - Time Time Spent with patient: 15-24 minutes Medications reviewed and adjusted accordingly: Yes Anticipated discharge: Other Within: Other - Inpatient Certification Medical Necessity: Need Close Monitoring Due to Risk of Patient Decompensation Post Hospital Care: D/C Senior Executive Assistant Documentation - Plan Summary Plan Summary: Cut down the Xanax only as needed get the ABG and chest x-ray
[2017-03-20] MEDS: ENOXAPARIN SODIUM INJ 40 MG/0.4 ML DISP.SYRIN SUBCUT SCH (11:00)
[2017-03-20 14:06] LABS: ARTERIAL BLOOD BASE EXCESS 8.1 mmol/L; ARTERIAL BLOOD O2 SATURATION 95.1 % (94-98)
--- NOTE | 2017-03-20 15:10 | PROGRESS NOTE E ---
Progress Note NAME: GIUSEPPE RINCON : 1935 AGE: 81Y DATE: 03/20/2017 ROOM: 404 The patient denies any pains. No nausea or vomiting. No fever. She is on IV antibiotics for E. coli in her blood. The plan is to do laparoscopic cholecystectomy (possible open) on Wednesday or Wednesday. She will continue with her low-fat diet at this time and IV antibiotics. DICTATING PHYSICIAN: PERRY ROME M.D. [id number] PHY#: [id number] ID: [id number] JOB#: [id number] ACCT: [id number] cc: >
[2017-03-20] MEDS: HYDROCODONE/ACETAMINOPHEN 10-325 MG TABLET PO PRN (22:59)
[2017-03-21] MEDS: 1/2 NORMAL SALINE 1,000 ML IV PRN ×2 (00:15→21:12)
[2017-03-21] MEDS: CEFAZOLIN 2 GM/D5W RTU 2 GM/50 ML RTUPB IV SCH ×4 (03:48→21:12)
[2017-03-21] MEDS: ALPRAZOLAM 0.5 MG TABLET PO PRN ×2 (03:48→22:02)
[2017-03-21 05:21] LABS: ABSOLUTE EOSINOPHILS # (AUTO) 0.2 10^3/uL (0.0-0.6); ABSOLUTE LYMPHOCYTES (AUTO) 1.5 10^3/uL (0.5-4.7); ABSOLUTE MONOCYTES (AUTO) 0.5 10^3/uL (0.1-1.4); ABSOLUTE NEUT (AUTO) 2.3 10^3/uL (1.7-8.2); BASOPHILS % (AUTO) 0.9 % (0-2); EOSINOPHILS % (AUTO) 3.7 % (0-6); HEMATOCRIT 33.1 % (36.0-47.0); HEMOGLOBIN 10.9 g/dL (12.0-15.5); HGB HCT DIFFERENCE -0.4; LYMPHOCYTES % (AUTO) 33.7 % (13-45); MEAN CORPUSCULAR HEMOGLOBIN 29.6 pg (27.0-33.4); MEAN CORPUSCULAR VOLUME 90 fl (80-97); MONOCYTES % (AUTO) 10.3 % (3-13); RED BLOOD COUNT 3.68 10^6/uL (3.72-5.28); RED CELL DISTRIBUTION WIDTH 15.2 % (11.5-14.0); SEGMENTED NEUTROPHILS % (AUTO) 51.4 % (42-78); WHITE BLOOD COUNT 4.4 10^3/uL (4.0-10.5)
[2017-03-21 05:41] LABS: ALANINE AMINOTRANSFERASE 38 U/L (9-52); ALBUMIN 2.6 g/dL (3.5-5.0); ALKALINE PHOSPHATASE 305 U/L (38-126); ANION GAP 7 (5-19); ASPARTATE AMINO TRANSFERASE 37 U/L (14-36); BILIRUBIN,DIRECT 0.5 mg/dL (0.0-0.4); BILIRUBIN,TOTAL 0.7 mg/dL (0.2-1.3); BLOOD UREA NITROGEN 12 mg/dL (7-20); CALCIUM 8.4 mg/dL (8.4-10.2); CARBON DIOXIDE 33 mmol/L (22-30); CHLORIDE 99 mmol/L (98-107); CREATININE RESULT 0.52 mg/dL (0.52-1.25); GLUCOSE 97 mg/dL (75-110); POTASSIUM 3.4 mmol/L (3.6-5.0); SODIUM 139.4 mmol/L (137-145); TOTAL PROTEIN 5.3 g/dL (6.3-8.2)
[2017-03-21] MEDS: NORMAL SALINE 10 ML SDV (SCHEDULED) IV SCH ×4 (06:41→21:12)
[2017-03-21] MEDS: HYDROCODONE/ACETAMINOPHEN 10-325 MG TABLET PO PRN (07:12)
[2017-03-21] MEDS: LEVOTHYROXINE SODIUM 0.088 MG TABLET PO SCH (09:56)
[2017-03-21] MEDS: ASPIRIN 81 MG TABLET, CHEWABLE PO SCH (09:56)
[2017-03-21] MEDS: ENOXAPARIN SODIUM INJ 40 MG/0.4 ML DISP.SYRIN SUBCUT SCH (09:56)
[2017-03-21] MEDS: METOPROLOL SUCCINATE 50 MG TAB.SR.24H PO SCH (09:57)
--- NOTE | 2017-03-21 10:44 | PDOC PROGRESS REPORT ---
Subjective Progress Note for:: 03/21/17 Subjective:: Patient is feeling much better this morning patients denied any chest pain denied any abdominal pain no nausea no vomiting and no fever. Patient is much alert awake and oriented [address] head was all negative Physical Exam Vital Signs: Temp Pulse Resp BP Pulse Ox 97.7 F 89 22 H 166/101 H 94 03/21/17 08:00 03/21/17 08:00 03/21/17 08:00 03/21/17 08:00 03/21/17 08:00 Intake & Output 03/20/17 03/21/17 03/22/17 06:59 06:59 06:59 Intake Total 2440 2790 Output Total 200 Balance 2240 2790 Weight 120.7 kg General appearance: PRESENT: no acute distress, well-developed, well-nourished Head exam: PRESENT: atraumatic, normocephalic Eye exam: PRESENT: conjunctiva pink, EOMI, PERRLA. ABSENT: scleral icterus Ear exam: PRESENT: normal external ear exam Mouth exam: PRESENT: moist, tongue midline Neck exam: PRESENT: full ROM. ABSENT: carotid bruit, JVD, lymphadenopathy, thyromegaly Respiratory exam: PRESENT: clear to auscultation mary Cardiovascular exam: PRESENT: RRR. ABSENT: diastolic murmur, rubs, systolic murmur Pulses: PRESENT: normal dorsalis pedis pul, +2 pedal pulses bilateral Vascular exam: PRESENT: normal capillary refill GI/Abdominal exam: PRESENT: normal bowel sounds, soft. ABSENT: distended, guarding, mass, organolmegaly, rebound, tenderness Rectal exam: PRESENT: deferred Neurological exam: PRESENT: alert, awake, oriented to person, oriented to place , oriented to time, oriented to situation, CN II-XII grossly intact. ABSENT: motor sensory deficit Psychiatric exam: PRESENT: appropriate affect, normal mood. ABSENT: homicidal ideation, suicidal ideation Skin exam: PRESENT: dry, intact, warm. ABSENT: cyanosis, rash Results Laboratory Results: 03/21/17 04:45 03/21/17 04:45 03/20/17 03/21/17 03/21/17 13:41 04:45 04:45 WBC 4.4 RBC 3.68 L Hgb 10.9 L Hct 33.1 L MCV 90 MCH 29.6 MCHC 33.0 RDW 15.2 H Plt Count 174 Seg Neutrophils % 51.4 Lymphocytes % 33.7 Monocytes % 10.3 Eosinophils % 3.7 Basophils % 0.9 Absolute Neutrophils 2.3 Absolute Lymphocytes 1.5 Absolute Monocytes 0.5 Absolute Eosinophils 0.2 Absolute Basophils 0.0 Carbonic Acid 1.41 H HCO3/H2CO3 Ratio 23:1 ABG pH 7.47 H ABG pCO2 46.9 H ABG pO2 71.6 L ABG HCO3 33.1 H ABG O2 Saturation 95.1 ABG Base Excess 8.1 FiO2 21% Sodium 139.4 Potassium 3.4 L Chloride 99 Carbon Dioxide 33 H Anion Gap 7 BUN 12 Creatinine 0.52 Est GFR ( Amer) > 60 Est GFR (Non-Af Amer) > 60 Glucose 97 Calcium 8.4 Total Bilirubin 0.7 AST 37 H ALT 38 Alkaline Phosphatase 305 H Total Protein 5.3 L Albumin 2.6 L Impressions: Chest X-Ray 03/16/17 19:25 IMPRESSION: NO ACUTE RADIOGRAPHIC FINDING IN THE CHEST. Abdomen Ultrasound 03/16/17 21:12 IMPRESSION: 1. Indeterminate 2.2 cm hypoechoic lesion of the right kidney may indicate a hemorrhagic cyst ; other neoplasm cannot be excluded. Consider further evaluation with dynamic contrast CT of the kidneys or ultrasound surveillance in 3 months. 2. Cholelithiasis. 3. Partially obscured pancreas and aorta. Abdomen/Pelvis CT 03/18/17 00:00 IMPRESSION: Cholelithiasis. Abdomen MRI 03/18/17 07:00 IMPRESSION: Cholelithiasis. No evidence of choledocholithiasis. Head CT 03/20/17 00:00 IMPRESSION: CHRONIC CHANGES OF ATROPHY AND MICROVASCULAR ISCHEMIA. NO ACUTE PROCESS. Assessment & Plan - Diagnosis (1) Cholelithiases Qualifiers: Cholelithiasis location: gallbladder Cholecystitis presence: with cholecystitis Cholecystitis acuity: acute and chronic Biliary obstruction: without biliary obstruction Qualified Code(s): K80.12 - Calculus of gallbladder with acute and chronic cholecystitis without obstruction Is this a current diagnosis for this admission?: YesPlan: Scheduled for the surgery (2) Elevated liver enzymes Is this a current diagnosis for this admission?: YesPlan: Due to the above conditions (3) Escherichia coli septicemia Is this a current diagnosis for this admission?: YesPlan: Continues to IV antibiotic (4) Obstructive jaundice Is this a current diagnosis for this admission?: YesPlan: Continues to monitor (5) Chronic atrial fibrillation Is this a current diagnosis for this admission?: YesPlan: f/u with cardilogy (6) Chronic obstructive pulmonary disease (COPD) Qualifiers: COPD type: unspecified COPD Qualified Code(s): J44.9 - Chronic obstructive pulmonary disease, unspecified Is this a current diagnosis for this admission?: YesPlan: Get the ABG (7) Morbid obesity Qualifiers: Obesity type: due to excess calories Qualified Code(s): E66.01 - Morbid (severe) obesity due to excess calories - Time Time Spent with patient: 15-24 minutes Medications reviewed and adjusted accordingly: Yes Anticipated discharge: Other Within: Other - Inpatient Certification Medical Necessity: Need Close Monitoring Due to Risk of Patient Decompensation Post Hospital Care: D/C Leather Fitter Documentation - Plan Summary Plan Summary: Continues current medications replace the potassium
[2017-03-21] MEDS ORDERED: NORMAL SALINE 10 ML SDV (AFTER EACH USE) IV PRN (10:46)
[2017-03-21] MEDS ORDERED: POTASSIUM CHLORIDE 10 MEQ TABLET.SA PO ONE (12:00)
--- NOTE | 2017-03-21 19:02 | PDOC PROGRESS REPORT ---
Subjective Progress Note for:: 03/20/17 Subjective:: Patient feels tired, fatigued and sleepy. Patient however is easily awakened and tends to respond appropriately. Patient denied any nausea vomiting or diaphoresis. Physical Exam Vital Signs: Temp Pulse Resp BP Pulse Ox 97.6 F 86 18 152/110 H 100 03/20/17 20:00 03/20/17 20:00 03/20/17 20:00 03/20/17 20:00 03/20/17 20:00 Intake & Output 03/19/17 03/20/17 03/21/17 06:59 06:59 06:59 Intake Total 2240 2440 1780 Output Total 200 Balance 2240 2240 1780 Exam: GENERAL: well-nourished and in no acute distress. Alert and oriented x3 HEAD: Atraumatic, normocephalic. EYES: Pupils equal round and reactive to light, extraocular movements intact, sclera anicteric, conjunctiva are normal. ENT: TMs normal, nares patent, oropharynx clear without exudates. Moist mucous membranes. No oral ulcerations or bleeding gums noted NECK: supple without lymphadenopathy. Trachea is central. No cervical or axillary lymphadenopathy noted. Carotids are 2+, JVD WNL LUNGS: Respiration seems nonlabored, no significant accessory muscle action noted. Breath sounds clear to auscultation bilaterally and equal noted. No wheezes rales or rhonchi noted. No significant dullness noted on percussion. CHEST: Palpation of the chest wall shows no significant chest wall tenderness. No other significant abnormalities noted. HEART: [place] [employer], No PSH, 1/6 CÉSAR aortic area, 1/6 patterson systolic murmur mitral area, no rubs, no gallops. ABDOMEN: Soft, no significant tenderness appreciated, normoactive bowel sounds. No guarding, no rebound. No rigidity noted . No masses appreciated. EXTREMITIES: Pedal pulses are 1-2+, no calf tenderness noted. No clubbing or cyanosis.trace to 1+ pedal edema noted NEUROLOGICAL: Focused neurological exam showed no significant neurologic deficit. Normal speech, no focal weakness appreciated. PSYCH: Normal mood, normal affect. Judgment and insight within normal limits. SKIN: No significant ecchymosis, rash, ulcerations or signs of pruritus noted. MUSCULOSKELETAL EXAM: No significant joint swelling noted. Results Laboratory Results: 03/20/17 06:10 03/20/17 06:10 03/20/17 03/20/17 03/20/17 06:10 06:10 13:41 WBC 4.0 RBC 3.73 Hgb 11.1 L Hct 33.6 L MCV 90 MCH 29.7 MCHC 32.9 RDW 15.4 H Plt Count 163 Carbonic Acid 1.41 H HCO3/H2CO3 Ratio 23:1 ABG pH 7.47 H ABG pCO2 46.9 H ABG pO2 71.6 L ABG HCO3 33.1 H ABG O2 Saturation 95.1 ABG Base Excess 8.1 FiO2 21% Sodium 141.3 Potassium 3.7 Chloride 98 Carbon Dioxide 35 H Anion Gap 8 BUN 9 Creatinine 0.50 L Est GFR ( Amer) > 60 Est GFR (Non-Af Amer) > 60 Glucose 101 Calcium 8.5 Total Bilirubin 0.8 AST 42 H ALT 58 H Alkaline Phosphatase 303 H Total Protein 5.5 L Albumin 2.6 L Lipase 10.8 L Impressions: Chest X-Ray 03/16/17 19:25 IMPRESSION: NO ACUTE RADIOGRAPHIC FINDING IN THE CHEST. Abdomen Ultrasound 03/16/17 21:12 IMPRESSION: 1. Indeterminate 2.2 cm hypoechoic lesion of the right kidney may indicate a hemorrhagic cyst ; other neoplasm cannot be excluded. Consider further evaluation with dynamic contrast CT of the kidneys or ultrasound surveillance in 3 months. 2. Cholelithiasis. 3. Partially obscured pancreas and aorta. Abdomen/Pelvis CT 03/18/17 00:00 IMPRESSION: Cholelithiasis. Abdomen MRI 03/18/17 07:00 IMPRESSION: Cholelithiasis. No evidence of choledocholithiasis. Head CT 03/20/17 00:00 IMPRESSION: CHRONIC CHANGES OF ATROPHY AND MICROVASCULAR ISCHEMIA. NO ACUTE PROCESS. Assessment & Plan - Diagnosis (1) Cholelithiases Qualifiers: Cholelithiasis location: gallbladder Cholecystitis presence: with cholecystitis Cholecystitis acuity: acute and chronic Biliary obstruction: without biliary obstruction Qualified Code(s): K80.12 - Calculus of gallbladder with acute and chronic cholecystitis without obstruction Is this a current diagnosis for this admission?: Yes (2) Chronic atrial fibrillation Is this a current diagnosis for this admission?: Yes (3) Chronic obstructive pulmonary disease (COPD) Qualifiers: COPD type: unspecified COPD Qualified Code(s): J44.9 - Chronic obstructive pulmonary disease, unspecified Is this a current diagnosis for this admission?: Yes (4) Essential hypertension Is this a current diagnosis for this admission?: Yes (5) Mental status change Qualifiers: Altered mental status type: unspecified Qualified Code(s): R41.82 - Altered mental status, unspecified Is this a current diagnosis for this admission?: Yes - Notes Notes: Cholelithiasis: Currently stable. Patient awaiting surgery. Chronic atrial fibrillation: Currently just on rate control patient not very keen on chronic anticoagulation. COPD: Currently stable. Hypertension: Stable. Mental status changes noted today, possibly sleep deprivation. Will like to rule out any infection. This was discussed with anterior primary care attending. - Time Time with patient: 15-25 minutes - CODE STATUS was discussed, patient remains full code. Surrogate decision-maker unchanged. Multiple medical problems were addressed. More than 50% of the time spent coordinating care, discussing management plans with involved caregivers. Management plans discussed with involved personnels. Medical decision making was of moderate to high complexity , patient's has multiple comorbidities. Medications reviewed and adjusted accordingly: Yes
--- NOTE | 2017-03-21 19:09 | PDOC CONSULTATION ---
Consultation Consult Date: 03/17/17 Attending physician:: NIKKI MCCULLOUGH Consult reason:: Preop cardiovascular evaluation History of Present Illness Admission Date/PCP: 03/17/17 01:49 NIKKI MCCULLOUGH MD Patient complains of: Abdominal pain History of Present Illness: GIUSEPPE RINCON is a 81 year old female, she was transferred from the [facility] to the emergency room because of fever, abdominal pain, nausea and diminished food intake she was recently admitted in this hospital on January 18, 2017 when she had acute calculus cholecystitis due to E. coli and also E. coli UTI with associated acute hypoxemic respiratory failure. She was transferred to shelter home for [facility]. In the emergency room she was evaluated ultrasound of the abdomen was done and showed gallstones also found was a 2.3 cm hypoechoic indeterminate lesion on of the right mid kidney which was present from previous CAT scan done for 01/18/2017. She was also found to elevated liver enzymes with elevated direct bilirubin the pattern of the liver enzymes is consistent t with obstructive jaundice. The ultrasound of the abdomen done did not show dilated common bile duct or intrahepatic duct. Patient has history of chronic atrial fibrillation but not on chronic anticoagulation. On questioning she had denying any chest arm or neck discomfort. She denied any prior history of myocardial infarction, angina or congestive heart failure. Patient's family at bedside. I was asked to evaluate patient in preop evaluation and clearance for gallbladder surgery. Past Medical History Cardiac Medical History: Reports: Atrial Fibrillation, Congestive Heart Failure , Hyperlipidema, Hypertension Denies: Myocardial Infarction Pulmonary Medical History: Reports: Asthma, Chronic Obstructive Pulmonary Disease (COPD), Sleep Apnea - doesn't use cpap Denies: Tuberculosis Neurological Medical History: Denies: Seizures Endocrine Medical History: Reports: Hypothyroidism GI Medical History: Reports: Gastroesophageal Reflux Disease, Hiatal Hernia Denies: Hepatitis Musculoskeltal Medical History: Reports: Arthritis Psychiatric Medical History: Reports: Depression Hematology: Denies: Anemia, Sickle Cell Disease Past Surgical History Past Surgical History: Reports: Appendectomy, Orthopedic Surgery - bilat knee, Tonsillectomy, Tubal Ligation Denies: Amputation, Hysterectomy, Mastectomy, Pacemaker Social History Information Source: Patient Smoking Status: Unknown if Ever Smoked Frequency of Alcohol Use: None Hx Recreational Drug Use: No Hx Prescription Drug Abuse: No - Advance Directive Resuscitation Status: Full Code Family History Family History: Reviewed & Not Pertinent Parental Family History Reviewed: Yes Children Family History Reviewed: Yes Sibling(s) Family History Reviewed.: Yes Medication/Allergy Home Medications: Alprazolam 1 mg PO BIDP PRN 08/22/12 Levothyroxine Sodium [Synthroid 0.088 mg Tablet] 88 mcg PO 0600 08/22/12 Metoprolol Succinate [Toprol XL 200 mg Tablet] 200 mg PO DAILY 07/17/14 Ipratropium/Albuterol Sulfate [Duoneb 3 ml Ampul] 3 ml NEB [id number] PRN #0 vial.neb 01/27/17 Aspirin [Aspirin 81 mg Chewable Tablet] 81 mg PO DAILY 03/17/17 Bisacodyl [Dulcolax 10 mg Supp.rect] 10 mg OR DAILYP PRN 03/17/17 Hydrocodone/Acetaminophen [[place] 10-325 mg Tablet] 1 tab PO Q8HP PRN 03/17/17 Allergies/Adverse Reactions: meperidine HCl [From Demerol] Allergy (Severe, Verified 08/22/12 17:56) Review of Systems Review of Systems: Please see history of present illness and past medical history as wall. Constitutional: Fever and chills reported along with generalized fatigue and tiredness. Head : No recent chronic headaches, recent head injury. Eyes: No recent eye pain, diplopia, redness, discharge, acute visual changes. Ears: No recent chronic ear pain, acute hearing loss, ear discharge. Oral cavity: No recent ulcerations, bleeding, oral cavity discomfort. Neck: No recent acute neck pain reported. Hematologic: No recent easy bruising or bleeding or hematologic malignancy reported. Lymphatic: No recent lymphatic malignancy, chronic lymphadenopathy reported yet Cardiovascular system review: See history of present illness. Respiratory system review: No recent chronic cough, hemoptysis, blood clots in the lungs reported. Mild Shortness of breath on exertion Gastrointestinal system review: Reported abdominal pain along with some nausea vomiting but no hematemesis, melena, recent change in bowel habits. Genitourinary system review: No recent acute or chronic hematuria, flank pain, UTI etc. reported. Skin system review: Negative for any recent abnormal bruising, no rash, no pruritus reported. Neurologic: No prior history of strokes, mini strokes, seizure disorder. Psychologic: No history of major psychosis or major depression reported. History of minor depression. Musculoskeletal: Minor aches and pains reported. No acute joint swelling reported. Endocrine: No recent polyuria, polydipsia, recent heat or cold intolerance. Physical Exam Vital Signs: Temp Pulse Resp BP Pulse Ox 97.9 F 97 22 H 156/106 H 97 03/17/17 03:00 03/16/17 19:36 03/17/17 03:01 03/17/17 03:01 03/17/17 02:01 Exam: GENERAL: well-nourished and in no acute distress. Alert and oriented x3 HEAD: Atraumatic, normocephalic. EYES: Pupils equal round and reactive to light, extraocular movements intact, sclera anicteric, conjunctiva are normal. ENT: TMs normal, nares patent, oropharynx clear without exudates. Moist mucous membranes. No oral ulcerations or bleeding gums noted NECK: supple without lymphadenopathy. Trachea is central. No cervical or axillary lymphadenopathy noted. Carotids are 2+, JVD WNL LUNGS: Respiration seems nonlabored, no significant accessory muscle action noted. Breath sounds clear to auscultation bilaterally and equal noted. No wheezes rales or rhonchi noted. No significant dullness noted on percussion. CHEST: Palpation of the chest wall shows no significant chest wall tenderness. No other significant abnormalities noted. HEART: [place] [employer], No PSH, 1/6 CÉSAR aortic area, 1/6 patterson systolic murmur mitral area, no rubs, no gallops. ABDOMEN: Right upper quadrant tenderness appreciated, abdomen otherwise soft. Normoactive bowel sounds. No guarding, no rebound. No rigidity noted . No masses appreciated. EXTREMITIES: Pedal pulses are 1-2+, no calf tenderness noted. No clubbing or cyanosis.trace to 1+ pedal edema noted NEUROLOGICAL: Focused neurological exam showed no significant neurologic deficit. Normal speech, no focal weakness appreciated. PSYCH: Normal mood, normal affect. Judgment and insight within normal limits. SKIN: No significant ecchymosis, rash, ulcerations or signs of pruritus noted. MUSCULOSKELETAL EXAM: No significant joint swelling noted. Results EKG Comments: Atrial fibrillation, small Q waves inferiorly cannot rule out prior inferior MA Impressions: Chest X-Ray 03/16/17 19:25 IMPRESSION: NO ACUTE RADIOGRAPHIC FINDING IN THE CHEST. Abdomen Ultrasound 05/16/17 21:12 IMPRESSION: 1. Indeterminate 2.2 cm hypoechoic lesion of the right kidney may indicate a hemorrhagic cyst ; other neoplasm cannot be excluded. Consider further evaluation with dynamic contrast CT of the kidneys or ultrasound surveillance in 3 months. 2. Cholelithiasis. 3. Partially obscured pancreas and aorta. Assessment & Plan - Diagnosis (1) Cholelithiases Qualifiers: Cholelithiasis location: gallbladder Cholecystitis presence: with cholecystitis Cholecystitis acuity: acute and chronic Biliary obstruction: without biliary obstruction Qualified Code(s): K80.12 - Calculus of gallbladder with acute and chronic cholecystitis without obstruction Is this a current diagnosis for this admission?: Yes (2) Chronic atrial fibrillation Is this a current diagnosis for this admission?: Yes (3) Chronic obstructive pulmonary disease (COPD) Qualifiers: COPD type: unspecified COPD Qualified Code(s): J44.9 - Chronic obstructive pulmonary disease, unspecified (4) Elevated liver enzymes Is this a current diagnosis for this admission?: Yes (5) Essential hypertension Is this a current diagnosis for this admission?: Yes (6) Preoperative cardiovascular examination Is this a current diagnosis for this admission?: Yes - Notes Notes: Cholelithiasis: Patient presents with abdominal pain. She has abnormal LFT. Patient will benefit from surgery. Patient currently stable from cardiac standpoint. Patient does have atrial fibrillation. Will leave management plans to the surgeon. Chronic atrial fibrillation: Rate is well controlled. Patient not keen on chronic anticoagulation. Also patient does not need it at this point as she is likely to go for surgery. COPD: Currently seems stable without any significant wheezing or respiratory distress. Elevated liver enzymes: To be evaluated further by service delivery supervisor and surgeon. Do not feel that this is related to CHF. Hypertension: Currently well controlled. Overall I feel patient is an acceptable candidate from a cardiac standpoint. Recommend DVT prophylaxis, pulmonary toilet, pain control. I have however ordered a 2D echocardiogram as this will help in any perioperative care. Patient is noted to have heart murmur on exam and need to rule out any significant stenotic valve disease. - Time Time Spent: 30 to 50 Minutes - CODE STATUS was discussed, patient remains full code.. Multiple medical problems were addressed. More than 50% of the time spent coordinating care, discussing management plans with involved caregivers. Management plans discussed with involved personnels. Medical decision making was of moderate to high complexity, patient's has multiple comorbidities. Medications reviewed and adjusted accordingly: Yes - Code
--- NOTE | 2017-03-21 19:21 | PDOC PROGRESS REPORT ---
Subjective Progress Note for:: 03/21/17 Subjective:: Patient some mental status has improved. She just feels fatigued and tired. She claims this is secondary to lack of sleep. She is denying any chest, neck discomfort of any sort. Physical Exam Vital Signs: Temp Pulse Resp BP Pulse Ox 97.8 F 73 20 128/109 H 95 03/21/17 16:00 03/21/17 16:00 03/21/17 16:00 03/21/17 16:00 03/21/17 16:00 Intake & Output 03/20/17 03/21/17 03/22/17 06:59 06:59 06:59 Intake Total 2440 2790 1320 Output Total 200 Balance 2240 2790 1320 Weight 120.7 kg Exam: GENERAL: well-nourished and in no acute distress. Alert and oriented x3 except for mild lethargy HEAD: Atraumatic, normocephalic. EYES: Pupils equal round and reactive to light, extraocular movements intact, sclera anicteric, conjunctiva are normal. ENT: TMs normal, nares patent, oropharynx clear without exudates. Moist mucous membranes. No oral ulcerations or bleeding gums noted NECK: supple without lymphadenopathy. Trachea is central. No cervical or axillary lymphadenopathy noted. Carotids are 2+, JVD WNL LUNGS: Respiration seems nonlabored, no significant accessory muscle action noted. Breath sounds clear to auscultation bilaterally and equal noted. No wheezes rales or rhonchi noted. No significant dullness noted on percussion. CHEST: Palpation of the chest wall shows no significant chest wall tenderness. No other significant abnormalities noted. HEART: [place] [employer], No PSH, 1/6 CÉSAR aortic area, 1/6 patterson systolic murmur mitral area, no rubs, no gallops. ABDOMEN: Soft, no significant tenderness appreciated, normoactive bowel sounds. No guarding, no rebound. No rigidity noted . No masses appreciated. EXTREMITIES: Pedal pulses are 1-2+, no calf tenderness noted. No clubbing or cyanosis.trace to 1+ pedal edema noted NEUROLOGICAL: Focused neurological exam showed no significant neurologic deficit. Normal speech, no focal weakness appreciated. PSYCH: Normal mood, normal affect. Judgment and insight within normal limits. SKIN: No significant ecchymosis, rash, ulcerations or signs of pruritus noted. MUSCULOSKELETAL EXAM: No significant joint swelling noted. Results Laboratory Results: 03/21/17 04:45 03/21/17 04:45 03/21/17 03/21/17 04:45 04:45 WBC 4.4 RBC 3.68 L Hgb 10.9 L Hct 33.1 L MCV 90 MCH 29.6 MCHC 33.0 RDW 15.2 H Plt Count 174 Seg Neutrophils % 51.4 Lymphocytes % 33.7 Monocytes % 10.3 Eosinophils % 3.7 Basophils % 0.9 Absolute Neutrophils 2.3 Absolute Lymphocytes 1.5 Absolute Monocytes 0.5 Absolute Eosinophils 0.2 Absolute Basophils 0.0 Sodium 139.4 Potassium 3.4 L Chloride 99 Carbon Dioxide 33 H Anion Gap 7 BUN 12 Creatinine 0.52 Est GFR ( Amer) > 60 Est GFR (Non-Af Amer) > 60 Glucose 97 Calcium 8.4 Total Bilirubin 0.7 AST 37 H ALT 38 Alkaline Phosphatase 305 H Total Protein 5.3 L Albumin 2.6 L Impressions: Chest X-Ray 03/16/17 19:25 IMPRESSION: NO ACUTE RADIOGRAPHIC FINDING IN THE CHEST. Abdomen Ultrasound 03/16/17 21:12 IMPRESSION: 1. Indeterminate 2.2 cm hypoechoic lesion of the right kidney may indicate a hemorrhagic cyst ; other neoplasm cannot be excluded. Consider further evaluation with dynamic contrast CT of the kidneys or ultrasound surveillance in 3 months. 2. Cholelithiasis. 3. Partially obscured pancreas and aorta. Abdomen/Pelvis CT 03/18/17 00:00 IMPRESSION: Cholelithiasis. Abdomen MRI 03/18/17 07:00 IMPRESSION: Cholelithiasis. No evidence of choledocholithiasis. Head CT 03/20/17 00:00 IMPRESSION: CHRONIC CHANGES OF ATROPHY AND MICROVASCULAR ISCHEMIA. NO ACUTE PROCESS. Assessment & Plan - Diagnosis (1) Cholelithiases Qualifiers: Cholelithiasis location: gallbladder Cholecystitis presence: with cholecystitis Cholecystitis acuity: acute and chronic Biliary obstruction: without biliary obstruction Qualified Code(s): K80.12 - Calculus of gallbladder with acute and chronic cholecystitis without obstruction Is this a current diagnosis for this admission?: Yes (2) Chronic atrial fibrillation Is this a current diagnosis for this admission?: Yes (3) Chronic obstructive pulmonary disease (COPD) Qualifiers: COPD type: unspecified COPD Qualified Code(s): J44.9 - Chronic obstructive pulmonary disease, unspecified Is this a current diagnosis for this admission?: Yes (4) Essential hypertension Is this a current diagnosis for this admission?: Yes - Notes Notes: Patient has been generally stable. I just saw her today to make sure that patient did not have any new changes and that her mental status has improved. Will follow after surgery. Patient otherwise has been stable from cardiac standpoint except for chronic atrial fibrillation. Rate seems well controlled. At this point will see her on as needed basis. - Time Time with patient: Less than 15 minutes - CODE STATUS was discussed, patient remains full code. Surrogate decision-maker unchanged. Multiple medical problems were addressed. More than 50% of the time spent coordinating care, discussing management plans with involved caregivers. Management plans discussed with involved personnels. Medical decision making was of moderate to high complexity, patient's has multiple comorbidities.
--- NOTE | 2017-03-21 20:42 | PROGRESS NOTE E ---
Progress Note NAME: GIUSEPPE RINCON : 1935 AGE: 81Y DATE: 03/21/2017 ROOM: 404 SUBJECTIVE: The patient denies any pains and is afebrile. OBJECTIVE: The abdomen is soft with minimal tenderness of the right upper quadrant. His white count remained normal and his liver function tests, especially the bilirubin, is coming down. Alkaline phosphatase remains sightly elevated. PLAN: Continue her IV antibiotics possible do a laparoscopic but most likely and open cholecystectomy in 48 hours. DICTATING PHYSICIAN: PERRY ROME M.D. [id number] PHY#: [id number] ID: [id number] JOB#: [id number] ACCT: [id number] cc: >
[2017-03-22] MEDS: CEFAZOLIN 2 GM/D5W RTU 2 GM/50 ML RTUPB IV SCH ×4 (02:15→22:01)
[2017-03-22] MEDS: HYDROCODONE/ACETAMINOPHEN 10-325 MG TABLET PO PRN ×2 (04:27→19:08)
[2017-03-22] MEDS: NORMAL SALINE 10 ML SDV (SCHEDULED) IV SCH ×5 (05:07→22:11)
[2017-03-22 06:17] LABS: ANION GAP 6 (5-19); BLOOD UREA NITROGEN 11 mg/dL (7-20); CALCIUM 8.6 mg/dL (8.4-10.2); CARBON DIOXIDE 34 mmol/L (22-30); CHLORIDE 100 mmol/L (98-107); CREATININE RESULT 0.57 mg/dL (0.52-1.25); GLUCOSE 84 mg/dL (75-110); POTASSIUM 3.7 mmol/L (3.6-5.0); SODIUM 139.9 mmol/L (137-145)
[2017-03-22 06:36] LABS: HEMATOCRIT 33.9 % (36.0-47.0); HEMOGLOBIN 10.9 g/dL (12.0-15.5); HGB HCT DIFFERENCE -1.2; MEAN CORPUSCULAR HEMOGLOBIN 29.3 pg (27.0-33.4); MEAN CORPUSCULAR VOLUME 91 fl (80-97); RED BLOOD COUNT 3.71 10^6/uL (3.72-5.28); RED CELL DISTRIBUTION WIDTH 16.1 % (11.5-14.0); WHITE BLOOD COUNT 4.7 10^3/uL (4.0-10.5)
[2017-03-22] MEDS ORDERED: ROCURONIUM BROMIDE INJ 50 MG/5 ML VIAL IV ONE (07:57)
[2017-03-22] MEDS ORDERED: SUCCINYLCHOLINE CHLORIDE INJ 200 MG/10 ML VIAL ONE (07:57)
[2017-03-22] MEDS: METOPROLOL SUCCINATE 50 MG TAB.SR.24H PO SCH (10:12)
[2017-03-22] MEDS: LEVOTHYROXINE SODIUM 0.088 MG TABLET PO SCH (10:12)
--- NOTE | 2017-03-22 10:18 | PROGRESS NOTE E ---
Progress Note NAME: GIUSEPEP RINCON : 1935 AGE: 81Y DATE: 03/22/2017 ROOM: 404 SUBJECTIVE: Hospital day 5 for the patient admitted with sepsis, gram-negative mayra, attributed to cholecystitis. Patient has done reasonably well overnight. She has been kept n.p.o. She is still on intravenous antibiotics through a PICC line. OBJECTIVE: VITAL SIGNS: Stable. ABDOMEN: Soft. Minimally tender in the right upper quadrant. No peritoneal signs. No rigidity. LABORATORY PROFILE: White blood cell count 4700, hemoglobin of 10.9. Electrolytes within normal limits. BUN of 34. Total bilirubin normal. Alkaline phosphatase 305. IMPRESSION: SEPSIS, CONTROLLED; UNDERLYING ETIOLOGY SECONDARY TO CHOLELITHIASIS WITH CHOLECYSTITIS; MULTIPLE CHRONIC MEDICAL PROBLEMS, INCLUDING COPD, OBESITY, ATRIAL FIBRILLATION WITH CONTROLLED VENTRICULAR RESPONSE, ALL STABLE. RECOMMENDATIONS: 1. I suggested the patient undergo interval laparoscopic possible open cholecystectomy. I have spoken to the patient, as well as the patient's daughter, Ms. Kirsten Fernandez. I explained to them that we would approach this using the minimally invasive approach and then convert to an open procedure if necessary. Naturally, cardiovascular risks as well as respiratory failure are possible, and need for postoperative ventilation discussed. 2. I have also discussed the plan with Dr. Stuart, the anesthesiologist, who is aware of the patient. The patient did have a cardiac evaluation by Dr. Perera, and patient was found to have a preserved ejection fraction. DICTATING PHYSICIAN: MUMTAZ QUINTERO M.D. [id number] PHY#: [id number] ID: [id number] JOB#: [id number] ACCT: [id number] cc: >
[2017-03-22] MEDS ORDERED: FENTANYL CITRATE INJ/PF 250 MCG/5 ML AMPULE ONE (13:02)
[2017-03-22] MEDS ORDERED: MIDAZOLAM 2 MG/2 ML INJ ONE (13:03)
[2017-03-22] MEDS ORDERED: ACETAMINOPHEN 100 ML IV ONE (13:03)
[2017-03-22] MEDS ORDERED: PROPOFOL INJ 200 MG/20 ML VIAL IV ONE (13:03)
[2017-03-22] MEDS ORDERED: BUPIVACAINE HCL 0.25 % INJ/PF (2.5 MG/1 ML) 30 ML VIAL ONE ×2 (13:10→15:29)
[2017-03-22] MEDS ORDERED: ONDANSETRON HCL INJ/PF 4 MG/2 ML SDV IV PRN ×2 (14:07→15:57)
[2017-03-22] MEDS ORDERED: FENTANYL CITRATE INJ/PF 100 MCG/2 ML AMPUL IV PRN ×3 (14:07)
[2017-03-22] MEDS ORDERED: HYDROMORPHONE HCL INJ/PF 2 MG/ML AMPULE ONE (16:14)
[2017-03-22] MEDS: METOPROLOL TARTRATE PF/INJ 5 MG/5 ML SDV IV ONE ×2 (16:18→16:32)
--- NOTE | 2017-03-22 16:33 | OPERATIVE REPORT E ---
Operative Report NAME: GIUSEPPE RINCON : 1935 AGE: 81Y DATE OF SURGERY: 03/21/20 ROOM: 404 PREOPERATIVE DIAGNOSIS: Symptomatic cholelithiasis with cholelithiasis. POSTOPERATIVE DIAGNOSIS: Symptomatic cholelithiasis with cholelithiasis. OPERATION: 1. Laparoscopic lysis of adhesions. 2. Laparoscopic cholecystectomy. 3. Extremely difficult modifier due to additional time required to perform stated procedure. SURGEON: MUMTAZ QUINTERO M.D. ANESTHESIA: General. ESTIMATED BLOOD LOSS: 25 mL. DRAINS: One large Jhon. COMPLICATIONS: None. FINDINGS: See below. SUMMARY OF PROCEDURE: The patient was brought from the preop holding area to the main operating room where general anesthesia was induced. Abdomen was exposed, arms abducted, and Fleming catheter inserted uneventfully. Clear yellow urine returned. The abdomen was exposed, prepped and draped in a sterile fashion. Surgical plan and surgical timeout were conducted. A supraumbilical vertical incision was made with a knife, Veress needle inserted into the peritoneal cavity, and pneumoperitoneum was established. Veress needle was removed, and a 5 mm port was inserted and a 5 mm flexible scope was inserted. Findings were significant for dense adhesions between the gallbladder and the anterior abdominal wall. Three additional ports were placed, one in the subxiphoid and two in the subcostal position. Using a harmonic energy device, adhesions between the gallbladder and the anterior abdominal wall were taken down sharply. We did rotate the position of the scope in one of the lateral ports to check our entry site, and there was no evidence of visceral or vascular injury. The findings now were consistent with an extremely enlarged gallbladder with multiple stones and intraluminal distention. Multiple dense filmy adhesions affixed the gallbladder to the gastroduodenal area and the hepatic flexure of the colon. The majority of these adhesions were taken down using a combination of blunt and LigaSure energy device. This took approximately 25 minutes. At this point, we now had the gallbladder suspended solely from the liver bed. We began working in a circumferential fashion taking down lateral and apical fixation points between the gallbladder and the liver surface. The tissue was extremely densely adhered in a fibrotic chronic fashion, hence the extended amount of time required to perform the dissection. Again, we worked circumferentially laterally and medially to optimize our exposure intact. Eventually, we had the medial aspect of the gallbladder exposed in relation to the proximal structures. These included the common bile duct. Multiple photos were taken. The cystic duct along with the cystic artery which was inferior to the cystic duct swept around from the lateral direction to almost a posterior approach to the common bile duct. We did not dissect further proximally towards the shoulder of the cystic duct with the common bile duct. We stayed focus on the plane between the cystic duct which was very patulous and the undersurface of the gallbladder. Unfortunately, this area was very densely adhered to the liver bed. For that reason, after coming around the gallbladder multiple times, I felt that dividing the gallbladder would be appropriate at this point, so the fundus of the gallbladder was amputated from the midportion of the gallbladder with ligature device. Now again, working in a circumferential fashion, we had the gallbladder suspended from the cystic artery/cystic duct unit, as well as a small 2 x 2 cm surface of posterior gallbladder directly adhered to the liver bed or plate. My concern was running the risk of digging this small portion of gallbladder wall out, and precipitating more bleeding. Therefore, we came across this small portion of posterior gallbladder wall with the LigaSure device, thereby leaving a small patch of parenchyma. This now enabled the infundibulum of the gallbladder and midbody to be suspended solely from the cystic artery and the cystic duct. Again, the common bile duct in the vicinity but always kept in direct visibility and out of harm's way. There was no evidence of cholecystoduodenal fistula, and the duodenal sweep as always in clear view; The cystic artery again inferior but intimately attached to the cystic duct was clipped twice proximally, once distally, and divided with scissors. The gallbladder was now suspended solely from the cystic duct which was again quite patulous. Therefore, a 3-0 PDS Endoloop was placed around the neck of the gallbladder and a second placed at the distal third of the cystic duct. The cystic duct was amputated thereby leaving the stump in good position. A clip was placed at the distal end of the cystic duct stump just distal to the PDS loop suture. We now used a combination of two Endobags to pull out both elements of the gallbladder and all but large stones which had spilled from the lumen of the gallbladder. We returned to the peritoneal cavity, checked for bleeding or bile leak; there was none. We took photos of the cystic duct and artery stump, and they were in good shape. A large John drain was placed in the recess of the subhepatic area and secured to the skin with 2-0 Prolene suture. Supraumbilical fascial defect was closed with #0-Vicryl and skin approximated with 3-0 Vicryl suture, benzoin and Steri-Strips. The bulb suction was hooked to the John drain and maintained an adequate suction. Then, 25 more mL of 0.25% Marcaine was injected into the subcutaneous tissue. The patient tolerated the procedure well, extubated and taken to recovery in stable condition. DICTATING PHYSICIAN: MUMTAZ QUINTERO M.D. [id number] PHY#: [id number] ID: [id number] JOB#: [id number] ACCT: [id number] cc:MUMTAZ QUINTERO M.D. > MTDD
--- NOTE | 2017-03-22 16:49 | PDOC PROGRESS REPORT ---
Subjective Progress Note for:: 03/22/17 Subjective:: She had laparoscopic cholecystectomy done today, seen by the bedside Physical Exam Vital Signs: Temp Pulse Resp BP Pulse Ox 97.9 F 83 18 153/102 H 98 03/22/17 11:32 03/22/17 11:32 03/22/17 11:32 03/22/17 11:32 03/22/17 11:32 Intake & Output 03/21/17 03/22/17 03/23/17 06:59 06:59 06:59 Intake Total 2790 1845 1000 Output Total 150 Balance 2790 1845 850 Weight 120.7 kg 122.9 kg General appearance: PRESENT: no acute distress Eye exam: PRESENT: PERRLA Respiratory exam: PRESENT: clear to auscultation mary Cardiovascular exam: PRESENT: +S1, +S2 Results Laboratory Results: 03/22/17 06:00 03/22/17 04:34 03/22/17 03/22/17 04:34 06:00 WBC 4.7 RBC 3.71 L Hgb 10.9 L Hct 33.9 L MCV 91 MCH 29.3 MCHC 32.0 RDW 16.1 H Plt Count 173 Sodium 139.9 Potassium 3.7 Chloride 100 Carbon Dioxide 34 H Anion Gap 6 BUN 11 Creatinine 0.57 Est GFR ( Amer) > 60 Est GFR (Non-Af Amer) > 60 Glucose 84 Calcium 8.6 Impressions: Chest X-Ray 03/16/17 19:25 IMPRESSION: NO ACUTE RADIOGRAPHIC FINDING IN THE CHEST. Abdomen Ultrasound 03/16/17 21:12 IMPRESSION: 1. Indeterminate 2.2 cm hypoechoic lesion of the right kidney may indicate a hemorrhagic cyst ; other neoplasm cannot be excluded. Consider further evaluation with dynamic contrast CT of the kidneys or ultrasound surveillance in 3 months. 2. Cholelithiasis. 3. Partially obscured pancreas and aorta. Abdomen/Pelvis CT 03/18/17 00:00 IMPRESSION: Cholelithiasis. Abdomen MRI 03/18/17 07:00 IMPRESSION: Cholelithiasis. No evidence of choledocholithiasis. Head CT 03/20/17 00:00 IMPRESSION: CHRONIC CHANGES OF ATROPHY AND MICROVASCULAR ISCHEMIA. NO ACUTE PROCESS. Assessment & Plan - Diagnosis (1) Obstructive jaundice Is this a current diagnosis for this admission?: Yes (2) Cholelithiases Qualifiers: Cholelithiasis location: gallbladder Cholecystitis presence: with cholecystitis Cholecystitis acuity: acute and chronic Biliary obstruction: without biliary obstruction Qualified Code(s): K80.12 - Calculus of gallbladder with acute and chronic cholecystitis without obstruction Is this a current diagnosis for this admission?: Yes (3) Gram positive septicemia Is this a current diagnosis for this admission?: Yes (4) Escherichia coli septicemia Is this a current diagnosis for this admission?: Yes
--- NOTE | 2017-03-22 17:27 | RADIOLOGY REPORT (SQ) ---
EXAM DESCRIPTION: CHEST SINGLE VIEW COMPLETED DATE/TIME: 03/22/2017 5:13 pm REASON FOR STUDY: POST OP PACU COMPARISON: 03/16/2017 EXAM PARAMETERS: NUMBER OF VIEWS: One view. TECHNIQUE: Single frontal radiographic view of the chest acquired. RADIATION DOSE: NA LIMITATIONS: None. FINDINGS: LUNGS AND PLEURA: There is ill-defined increased opacity in the left lung base and a porti on of the medial aspect of the left hemidiaphragm is indistinct. MEDIASTINUM AND HILAR STRUCTURES: No masses. Contour normal. HEART AND VASCULAR STRUCTURES: Borderline cardiomegaly with no frances CHF. BONES: No acute findings. HARDWARE: A PICC line remains in place on the right. OTHER: No other significant finding. IMPRESSION: A limited left lower lobe pneumonia cannot be ruled out. TECHNICAL DOCUMENTATION: JOB ID: [id number]
[2017-03-22 17:42] LABS: CREATINE KINASE MB 0.34 ng/mL (<4.55)
[2017-03-22 17:45] LABS: TROPONIN I < 0.012 ng/mL
--- NOTE | 2017-03-22 18:42 | EKG REPORT ---
SEVERITY:- ABNORMAL ECG - ATRIAL FIBRILLATION, V-RATE 51-81 PROBABLE INFERIOR INFARCT, AGE INDETERMINATE BORDERLINE PROLONGED QT INTERVAL : Confirmed by: Hitesh Singh MD 22-Mar-2017 18:41:26
[2017-03-22] MEDS: ASPIRIN 81 MG TABLET, CHEWABLE PO SCH (20:59)
[2017-03-22] MEDS: ENOXAPARIN SODIUM INJ 40 MG/0.4 ML DISP.SYRIN SUBCUT SCH (20:59)
--- NOTE | 2017-03-22 21:05 | PDOC PROGRESS REPORT ---
Subjective Progress Note for:: 03/22/17 Subjective:: Patient seen postop. She had episode of chest pain. EKG received reviewed and was negative for any significant changes from before. Cardiac enzymes 1 negative. Chest x-ray possible pneumonia on the left side. Physical Exam Vital Signs: Temp Pulse Resp BP Pulse Ox 97.3 F 74 18 173/112 H 98 03/22/17 18:30 03/22/17 18:30 03/22/17 18:30 03/22/17 18:30 03/22/17 18:30 Intake & Output 03/21/17 03/22/17 03/23/17 06:59 06:59 06:59 Intake Total 2790 1845 1350 Output Total 480 Balance 2790 1845 870 Weight 120.7 kg 122.9 kg Exam: GENERAL: well-nourished and in no acute distress. Alert and oriented x3. Mildly lethargic. HEAD: Atraumatic, normocephalic. EYES: Pupils equal round and reactive to light, extraocular movements intact, sclera anicteric, conjunctiva are normal. ENT: TMs normal, nares patent, oropharynx clear without exudates. Moist mucous membranes. No oral ulcerations or bleeding gums noted NECK: supple without lymphadenopathy. Trachea is central. No cervical or axillary lymphadenopathy noted. Carotids are 2+, JVD WNL LUNGS: Respiration seems nonlabored, no significant accessory muscle action noted. Breath sounds clear to auscultation bilaterally and equal noted. No wheezes rales or rhonchi noted. No significant dullness noted on percussion. CHEST: Palpation of the chest wall shows no significant chest wall tenderness. No other significant abnormalities noted. 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 ABDOMEN: Soft, surgical significant tenderness appreciated at surgical site, normoactive bowel sounds. No guarding, no rebound. No rigidity noted . No masses appreciated. EXTREMITIES: Pedal pulses are 1-2+, no calf tenderness noted. No clubbing or cyanosis.trace to 1+ pedal edema noted NEUROLOGICAL: Focused neurological exam showed no significant neurologic deficit. Normal speech, no focal weakness appreciated. PSYCH: Normal mood, normal affect. Judgment and insight within normal limits. SKIN: No significant ecchymosis, rash, ulcerations or signs of pruritus noted. MUSCULOSKELETAL EXAM: No significant joint swelling noted. Results Laboratory Results: 03/22/17 06:00 03/22/17 04:34 03/22/17 03/22/17 04:34 06:00 WBC 4.7 RBC 3.71 L Hgb 10.9 L Hct 33.9 L MCV 91 MCH 29.3 MCHC 32.0 RDW 16.1 H Plt Count 173 Sodium 139.9 Potassium 3.7 Chloride 100 Carbon Dioxide 34 H Anion Gap 6 BUN 11 Creatinine 0.57 Est GFR ( Amer) > 60 Est GFR (Non-Af Amer) > 60 Glucose 84 Calcium 8.6 03/22/17 03/22/17 16:58 16:58 Creatine Kinase < 20 L CK-MB (CK-2) 0.34 Troponin I < 0.012 Impressions: Abdomen Ultrasound 03/16/17 21:12 IMPRESSION: 1. Indeterminate 2.2 cm hypoechoic lesion of the right kidney may indicate a hemorrhagic cyst ; other neoplasm cannot be excluded. Consider further evaluation with dynamic contrast CT of the kidneys or ultrasound surveillance in 3 months. 2. Cholelithiasis. 3. Partially obscured pancreas and aorta. Abdomen/Pelvis CT 03/18/17 00:00 IMPRESSION: Cholelithiasis. Abdomen MRI 03/18/17 07:00 IMPRESSION: Cholelithiasis. No evidence of choledocholithiasis. Head CT 03/20/17 00:00 IMPRESSION: CHRONIC CHANGES OF ATROPHY AND MICROVASCULAR ISCHEMIA. NO ACUTE PROCESS. Chest X-Ray 03/22/17 16:58 IMPRESSION: A limited left lower lobe pneumonia cannot be ruled out. Assessment & Plan - Diagnosis (1) Cholelithiases Qualifiers: Cholelithiasis location: gallbladder Cholecystitis presence: with cholecystitis Cholecystitis acuity: acute and chronic Biliary obstruction: without biliary obstruction Qualified Code(s): K80.12 - Calculus of gallbladder with acute and chronic cholecystitis without obstruction Is this a current diagnosis for this admission?: Yes (2) Chronic atrial fibrillation Is this a current diagnosis for this admission?: Yes (3) Chronic obstructive pulmonary disease (COPD) Qualifiers: COPD type: unspecified COPD Qualified Code(s): J44.9 - Chronic obstructive pulmonary disease, unspecified Is this a current diagnosis for this admission?: Yes (4) Essential hypertension Is this a current diagnosis for this admission?: Yes (5) Chest pain Qualifiers: Chest pain type: unspecified Qualified Code(s): R07.9 - Chest pain, unspecified Is this a current diagnosis for this admission?: Yes - Notes Notes: Chest pain: Postop possibly atelectasis versus pneumonia. 12-lead EKG unchanged. Will repeat 12-lead EKG in the morning. Chronic atrial fibrillation: Rate well controlled patient does not want chronic anticoagulation. COPD: Continue pulmonary toilet and bronchodilator therapy. Hypertension: Blood pressure stable. Status post cholecystectomy for cholelithiasis. Today. Postoperative state today. - Time Time with patient: 15-25 minutes - CODE STATUS was discussed, patient remains full code. Surrogate decision-maker unchanged. Multiple medical problems were addressed. More than 50% of the time spent coordinating care, discussing management plans with involved caregivers. Management plans discussed with involved personnels. Medical decision making was of moderate to high complexity , patient's has multiple comorbidities. Medications reviewed and adjusted accordingly: Yes
[2017-03-22] MEDS: OXYCODONE-ACETAMINOPHEN 5-325 MG TABLET PO PRN (21:58)
[2017-03-23] MEDS: 1/2 NORMAL SALINE 1,000 ML IV PRN (02:31)
[2017-03-23] MEDS: CEFAZOLIN 2 GM/D5W RTU 2 GM/50 ML RTUPB IV SCH ×3 (02:31→22:43)
[2017-03-23] MEDS: OXYCODONE-ACETAMINOPHEN 5-325 MG TABLET PO PRN ×4 (05:25→19:36)
[2017-03-23] MEDS: NORMAL SALINE 10 ML SDV (SCHEDULED) IV SCH ×5 (05:25→22:43)
[2017-03-23 06:30] LABS: ANION GAP 6 (5-19); BLOOD UREA NITROGEN 14 mg/dL (7-20); CALCIUM 8.5 mg/dL (8.4-10.2); CARBON DIOXIDE 32 mmol/L (22-30); CHLORIDE 97 mmol/L (98-107); CREATININE RESULT 0.59 mg/dL (0.52-1.25); GLUCOSE 94 mg/dL (75-110); POTASSIUM 3.7 mmol/L (3.6-5.0); SODIUM 135.4 mmol/L (137-145)
[2017-03-23] MEDS: METOPROLOL SUCCINATE 50 MG TAB.SR.24H PO SCH (09:57)
[2017-03-23] MEDS: LEVOTHYROXINE SODIUM 0.088 MG TABLET PO SCH (10:00)
[2017-03-23] MEDS: ASPIRIN 81 MG TABLET, CHEWABLE PO SCH (10:00)
[2017-03-23] MEDS: ENOXAPARIN SODIUM INJ 40 MG/0.4 ML DISP.SYRIN SUBCUT SCH (10:01)
--- NOTE | 2017-03-23 18:37 | PDOC PROGRESS REPORT ---
Subjective Progress Note for:: 03/23/17 Subjective:: Patient is status post laparoscopy with cholecystectomy, patient will need rehabilitation for a few more days before she gets discharged home Physical Exam Vital Signs: Temp Pulse Resp BP Pulse Ox 98.1 F 88 20 135/91 H 95 03/23/17 17:07 03/23/17 17:07 03/23/17 17:07 03/23/17 17:07 03/23/17 17:07 Intake & Output 03/22/17 03/23/17 03/24/17 06:59 06:59 06:59 Intake Total 1845 2155 210 Output Total 1680 110 Balance 1845 475 100 Weight 122.9 kg General appearance: PRESENT: no acute distress Eye exam: PRESENT: PERRLA Respiratory exam: PRESENT: clear to auscultation mary Cardiovascular exam: PRESENT: +S1, +S2 GI/Abdominal exam: PRESENT: soft Neurological exam: PRESENT: alert, CN II-XII grossly intact Results Laboratory Results: 03/22/17 06:00 03/23/17 05:37 03/23/17 05:37 Sodium 135.4 L Potassium 3.7 Chloride 97 L Carbon Dioxide 32 H Anion Gap 6 BUN 14 Creatinine 0.59 Est GFR ( Amer) > 60 Est GFR (Non-Af Amer) > 60 Glucose 94 Calcium 8.5 03/17/17 19:06 Blood Blood Culture - Final NO GROWTH IN 5 DAYS 03/17/17 18:55 Blood Blood Culture - Final NO GROWTH IN 5 DAYS 03/22/17 03/22/17 16:58 16:58 Creatine Kinase < 20 L CK-MB (CK-2) 0.34 Troponin I < 0.012 Impressions: Abdomen Ultrasound 03/16/17 21:12 IMPRESSION: 1. Indeterminate 2.2 cm hypoechoic lesion of the right kidney may indicate a hemorrhagic cyst ; other neoplasm cannot be excluded. Consider further evaluation with dynamic contrast CT of the kidneys or ultrasound surveillance in 3 months. 2. Cholelithiasis. 3. Partially obscured pancreas and aorta. Abdomen/Pelvis CT 03/18/17 00:00 IMPRESSION: Cholelithiasis. Abdomen MRI 03/18/17 07:00 IMPRESSION: Cholelithiasis. No evidence of choledocholithiasis. Head CT 03/20/17 00:00 IMPRESSION: CHRONIC CHANGES OF ATROPHY AND MICROVASCULAR ISCHEMIA. NO ACUTE PROCESS. Chest X-Ray 03/22/17 16:58 IMPRESSION: A limited left lower lobe pneumonia cannot be ruled out. Assessment & Plan - Diagnosis (1) Obstructive jaundice Is this a current diagnosis for this admission?: Yes (2) Cholelithiases Qualifiers: Cholelithiasis location: gallbladder Cholecystitis presence: with cholecystitis Cholecystitis acuity: acute and chronic Biliary obstruction: without biliary obstruction Qualified Code(s): K80.12 - Calculus of gallbladder with acute and chronic cholecystitis without obstruction Is this a current diagnosis for this admission?: Yes (3) Gram positive septicemia Is this a current diagnosis for this admission?: Yes (4) Escherichia coli septicemia Is this a current diagnosis for this admission?: Yes
--- NOTE | 2017-03-23 19:51 | PDOC PROGRESS REPORT ---
Subjective Progress Note for:: 03/23/17 Subjective:: Patient seen postop day 1. Patient still having some intermittent chest pain. EKG received reviewed and was negative for any significant changes from before. Cardiac enzymes 1 negative. Chest x-ray possible pneumonia on the left side. Physical Exam Vital Signs: Temp Pulse Resp BP Pulse Ox 97.8 F 85 20 128/76 H 95 03/23/17 08:00 03/23/17 08:00 03/23/17 08:00 03/23/17 08:00 03/23/17 08:00 Intake & Output 03/22/17 03/23/17 03/24/17 06:59 06:59 06:59 Intake Total 1845 2155 Output Total 1680 Balance 1845 475 Weight 122.9 kg Exam: GENERAL: well-nourished and in no acute distress. Alert and oriented x3 HEAD: Atraumatic, normocephalic. EYES: Pupils equal round and reactive to light, extraocular movements intact, sclera anicteric, conjunctiva are normal. ENT: TMs normal, nares patent, oropharynx clear without exudates. Moist mucous membranes. No oral ulcerations or bleeding gums noted NECK: supple without lymphadenopathy. Trachea is central. No cervical or axillary lymphadenopathy noted. Carotids are 2+, JVD WNL LUNGS: Respiration seems nonlabored, no significant accessory muscle action noted. Breath sounds clear to auscultation bilaterally and equal noted. No wheezes rales or rhonchi noted. No significant dullness noted on percussion. CHEST: Palpation of the chest wall shows significant chest wall tenderness. No other significant abnormalities noted. 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 ABDOMEN: Soft, right upper quadrant postsurgical tenderness appreciated, normoactive bowel sounds. No guarding, no rebound. No rigidity noted . No masses appreciated. EXTREMITIES: Pedal pulses are 1-2+, no calf tenderness noted. No clubbing or cyanosis.trace to 1+ pedal edema noted NEUROLOGICAL: Focused neurological exam showed no significant neurologic deficit. Normal speech, no focal weakness appreciated. PSYCH: Normal mood, normal affect. Judgment and insight within normal limits. SKIN: No significant ecchymosis, rash, ulcerations or signs of pruritus noted. MUSCULOSKELETAL EXAM: No significant joint swelling noted. Results Laboratory Results: 03/22/17 06:00 03/23/17 05:37 03/23/17 05:37 Sodium 135.4 L Potassium 3.7 Chloride 97 L Carbon Dioxide 32 H Anion Gap 6 BUN 14 Creatinine 0.59 Est GFR ( Amer) > 60 Est GFR (Non-Af Amer) > 60 Glucose 94 Calcium 8.5 03/17/17 19:06 Blood Blood Culture - Final NO GROWTH IN 5 DAYS 03/17/17 18:55 Blood Blood Culture - Final NO GROWTH IN 5 DAYS 03/22/17 03/22/17 16:58 16:58 Creatine Kinase < 20 L CK-MB (CK-2) 0.34 Troponin I < 0.012 Impressions: Abdomen Ultrasound 03/16/17 21:12 IMPRESSION: 1. Indeterminate 2.2 cm hypoechoic lesion of the right kidney may indicate a hemorrhagic cyst ; other neoplasm cannot be excluded. Consider further evaluation with dynamic contrast CT of the kidneys or ultrasound surveillance in 3 months. 2. Cholelithiasis. 3. Partially obscured pancreas and aorta. Abdomen/Pelvis CT 03/18/17 00:00 IMPRESSION: Cholelithiasis. Abdomen MRI 03/18/17 07:00 IMPRESSION: Cholelithiasis. No evidence of choledocholithiasis. Head CT 03/20/17 00:00 IMPRESSION: CHRONIC CHANGES OF ATROPHY AND MICROVASCULAR ISCHEMIA. NO ACUTE PROCESS. Chest X-Ray 03/22/17 16:58 IMPRESSION: A limited left lower lobe pneumonia cannot be ruled out. Assessment & Plan - Diagnosis (1) Cholelithiases Qualifiers: Cholelithiasis location: gallbladder Cholecystitis presence: with cholecystitis Cholecystitis acuity: acute and chronic Biliary obstruction: without biliary obstruction Qualified Code(s): K80.12 - Calculus of gallbladder with acute and chronic cholecystitis without obstruction Is this a current diagnosis for this admission?: Yes (2) Chronic atrial fibrillation Is this a current diagnosis for this admission?: Yes (3) Chronic obstructive pulmonary disease (COPD) Qualifiers: COPD type: unspecified COPD Qualified Code(s): J44.9 - Chronic obstructive pulmonary disease, unspecified Is this a current diagnosis for this admission?: Yes (4) Essential hypertension Is this a current diagnosis for this admission?: Yes (5) Chest pain Qualifiers: Chest pain type: unspecified Qualified Code(s): R07.9 - Chest pain, unspecified Is this a current diagnosis for this admission?: Yes - Notes Notes: Chest pain: Likely musculoskeletal in view of the stable chest wall tenderness but patient also noted to have atelectasis and possible pneumonia.. Chronic atrial fibrillation: Rate well controlled patient does not want chronic anticoagulation. COPD: Continue pulmonary toilet and bronchodilator therapy. Hypertension: Blood pressure stable. Status post cholecystectomy for cholelithiasis. Stable. Postoperative day 1. - Time Time with patient: 15-25 minutes - CODE STATUS was discussed, patient remains full code. Surrogate decision-maker unchanged. Multiple medical problems were addressed. More than 50% of the time spent coordinating care, discussing management plans with involved caregivers. Management plans discussed with involved personnels. Medical decision making was of moderate to high complexity , patient's has multiple comorbidities. Patient has been stable. We will sign off. Patient can follow-up with me if she desired for atrial fibrillation management.
--- NOTE | 2017-03-23 22:53 | PROGRESS NOTE E ---
Progress Note NAME: GIUSEPPE RINCON : 1935 AGE: 81Y DATE: 03/23/2017 ROOM: 404 SUBJECTIVE: This is the first postop day post laparoscopic cholecystectomy. She remains afebrile and has some mild abdominal pains. The J-tube has only drained about 15 mL with serosanguineous fluid. The KOREY drain was removed. She is tolerating the clear liquids, and she wants more solid foods, so I will increase her diet to soft diet today. PLAN: She remains stable, and she can be discharged from the surgical standpoint within the next 24 hours. DICTATING PHYSICIAN: PERRY ROME M.D. [id number] PHY#: [id number] ID: [id number] JOB#: [id number] ACCT: [id number] cc:PERRY ROME M.D. >
[2017-03-23] MEDS: ALPRAZOLAM 0.5 MG TABLET PO PRN (23:24)
[2017-03-24] MEDS: CEFAZOLIN 2 GM/D5W RTU 2 GM/50 ML RTUPB IV SCH ×4 (03:30→20:41)
[2017-03-24] MEDS: NORMAL SALINE 10 ML SDV (SCHEDULED) IV SCH ×5 (05:13→23:29)
[2017-03-24] MEDS: LEVOTHYROXINE SODIUM 0.088 MG TABLET PO SCH (07:23)
[2017-03-24] MEDS: HYDROCODONE/ACETAMINOPHEN 10-325 MG TABLET PO PRN (08:51)
[2017-03-24] MEDS: METOPROLOL SUCCINATE 50 MG TAB.SR.24H PO SCH (09:00)
[2017-03-24] MEDS: ASPIRIN 81 MG TABLET, CHEWABLE PO SCH (09:00)
[2017-03-24] MEDS: ENOXAPARIN SODIUM INJ 40 MG/0.4 ML DISP.SYRIN SUBCUT SCH (09:01)
--- NOTE | 2017-03-24 14:31 | PDOC PROGRESS REPORT ---
Subjective Progress Note for:: 03/24/17 Subjective:: Patient was seen by the bedside, she is not participating in physical therapy, she said she is tired today, she is status post cholecystectomy. The plan is to transfer to senior living for rehabilitation by Wednesday. Physical Exam Vital Signs: Temp Pulse Resp BP Pulse Ox 97.9 F 65 18 132/81 H 97 03/24/17 11:51 03/24/17 11:51 03/24/17 11:51 03/24/17 11:51 03/24/17 11:51 Intake & Output 03/23/17 03/24/17 03/25/17 06:59 06:59 06:59 Intake Total 2155 1480 100 Output Total 1680 2030 Balance 475 -550 100 General appearance: PRESENT: no acute distress, well-developed, well-nourished Head exam: PRESENT: atraumatic, normocephalic Eye exam: PRESENT: conjunctiva pink, EOMI, PERRLA Ear exam: PRESENT: normal external ear exam Mouth exam: PRESENT: moist, tongue midline Neck exam: PRESENT: full ROM Respiratory exam: PRESENT: clear to auscultation mary Cardiovascular exam: PRESENT: RRR, +S1, +S2 Vascular exam: PRESENT: normal capillary refill GI/Abdominal exam: PRESENT: normal bowel sounds, soft Rectal exam: PRESENT: deferred Neurological exam: PRESENT: alert, awake, oriented to person, oriented to place , oriented to time, oriented to situation, CN II-XII grossly intact. ABSENT: motor sensory deficit Psychiatric exam: PRESENT: appropriate affect, normal mood Skin exam: PRESENT: dry, intact, warm Results Laboratory Results: 03/22/17 06:00 03/23/17 05:37 03/22/17 03/22/17 16:58 16:58 Creatine Kinase < 20 L CK-MB (CK-2) 0.34 Troponin I < 0.012 Impressions: Abdomen Ultrasound 03/16/17 21:12 IMPRESSION: 1. Indeterminate 2.2 cm hypoechoic lesion of the right kidney may indicate a hemorrhagic cyst ; other neoplasm cannot be excluded. Consider further evaluation with dynamic contrast CT of the kidneys or ultrasound surveillance in 3 months. 2. Cholelithiasis. 3. Partially obscured pancreas and aorta. Abdomen/Pelvis CT 03/18/17 00:00 IMPRESSION: Cholelithiasis. Abdomen MRI 03/18/17 07:00 IMPRESSION: Cholelithiasis. No evidence of choledocholithiasis. Head CT 03/20/17 00:00 IMPRESSION: CHRONIC CHANGES OF ATROPHY AND MICROVASCULAR ISCHEMIA. NO ACUTE PROCESS. Chest X-Ray 03/22/17 16:58 IMPRESSION: A limited left lower lobe pneumonia cannot be ruled out. Assessment & Plan - Diagnosis (1) Escherichia coli septicemia Is this a current diagnosis for this admission?: Yes (2) Obstructive jaundice Is this a current diagnosis for this admission?: Yes (3) Cholelithiases Qualifiers: Cholelithiasis location: gallbladder Cholecystitis presence: with cholecystitis Cholecystitis acuity: acute and chronic Biliary obstruction: without biliary obstruction Qualified Code(s): K80.12 - Calculus of gallbladder with acute and chronic cholecystitis without obstruction Is this a current diagnosis for this admission?: Yes (4) Gram positive septicemia Is this a current diagnosis for this admission?: Yes
[2017-03-24] MEDS: OXYCODONE-ACETAMINOPHEN 5-325 MG TABLET PO PRN ×2 (16:19→23:27)
[2017-03-24] MEDS: ALPRAZOLAM 0.5 MG TABLET PO PRN (23:27)
[2017-03-25] MEDS: CEFAZOLIN 2 GM/D5W RTU 2 GM/50 ML RTUPB IV SCH ×4 (02:43→21:53)
[2017-03-25] MEDS: NORMAL SALINE 10 ML SDV (SCHEDULED) IV SCH ×5 (05:07→21:53)
[2017-03-25 07:10] LABS: HEMATOCRIT 31.5 % (36.0-47.0); HEMOGLOBIN 10.2 g/dL (12.0-15.5); HGB HCT DIFFERENCE -0.9; MEAN CORPUSCULAR HEMOGLOBIN 29.8 pg (27.0-33.4); MEAN CORPUSCULAR HGB CONC 32.3 g/dL (32.0-36.0); MEAN CORPUSCULAR VOLUME 92 fl (80-97); RED BLOOD COUNT 3.41 10^6/uL (3.72-5.28); WHITE BLOOD COUNT 5.8 10^3/uL (4.0-10.5)
[2017-03-25] MEDS: LEVOTHYROXINE SODIUM 0.088 MG TABLET PO SCH (07:32)
[2017-03-25 07:55] LABS: ANION GAP 5 (5-19); BLOOD UREA NITROGEN 11 mg/dL (7-20); CALCIUM 8.4 mg/dL (8.4-10.2); CARBON DIOXIDE 33 mmol/L (22-30); CHLORIDE 97 mmol/L (98-107); CREATININE RESULT 0.51 mg/dL (0.52-1.25); GLUCOSE 86 mg/dL (75-110); POTASSIUM 3.5 mmol/L (3.6-5.0); SODIUM 134.9 mmol/L (137-145)
[2017-03-25] MEDS: OXYCODONE-ACETAMINOPHEN 5-325 MG TABLET PO PRN (09:28)
[2017-03-25] MEDS: METOPROLOL SUCCINATE 50 MG TAB.SR.24H PO SCH (09:28)
[2017-03-25] MEDS: ASPIRIN 81 MG TABLET, CHEWABLE PO SCH (09:29)
[2017-03-25] MEDS: ENOXAPARIN SODIUM INJ 40 MG/0.4 ML DISP.SYRIN SUBCUT SCH (09:29)
[2017-03-25] MEDS ORDERED: ONDANSETRON HCL INJ/PF 4 MG/2 ML SDV IV PRN (11:11)
--- NOTE | 2017-03-25 14:38 | PROGRESS NOTE E ---
Progress Note NAME: GIUSEPPE RINCON : 1935 AGE: 81Y DATE: 03/24/2017 ROOM: 404 This is a third postop day post laparoscopic cholecystectomy. She is doing very well except complained of pains at the subxiphoid area, which attributes to reflux. She said she had this in the past and takes antireflux medication for this. The rest of the abdomen is soft and nontender. She is taking a soft diet and tolerating it quite well. The patient can be discharged in the next 24 hours from the surgical standpoint. DICTATING PHYSICIAN: PERRY ROME M.D. [id number] PHY#: [id number] ID: [id number] JOB#: [id number] ACCT: [id number] cc: >
--- NOTE | 2017-03-25 19:01 | PDOC TRANSFER SUMMARY ---
General - Admit/Disc Date/PCP Admission Date/Primary Care Provider: 03/17/17 01:49 NIKKI MCCULLOUGH MD Discharge Date: 03/26/17 - Discharge Diagnosis (1) Escherichia coli septicemia Is this a current diagnosis for this admission?: Yes (2) Obstructive jaundice Is this a current diagnosis for this admission?: Yes (3) Cholelithiases Is this a current diagnosis for this admission?: Yes (4) Gram positive septicemia Is this a current diagnosis for this admission?: Yes - Additional Information Resuscitation Status: Full Code Home Medications: Alprazolam 1 mg PO BIDP PRN 08/22/12 Levothyroxine Sodium [Synthroid 0.088 mg Tablet] 88 mcg PO 0600 08/22/12 Metoprolol Succinate [Toprol XL 200 mg Tablet] 200 mg PO DAILY 07/17/14 Ipratropium/Albuterol Sulfate [Duoneb 3 ml Ampul] 3 ml NEB [id number] PRN #0 vial.neb 01/27/17 Aspirin [Aspirin 81 mg Chewable Tablet] 81 mg PO DAILY 03/17/17 Bisacodyl [Dulcolax 10 mg Supp.rect] 10 mg CO DAILYP PRN 03/17/17 History of Present Illness Admission Date/PCP: 03/17/17 01:49 NIKKI MCCULLOUGH MD History of Present Illness: GIUSEPPE RINCON is a 81 year old female, she was transferred from the [facility] to the emergency room because of fever, abdominal pain, nausea and diminished food intake she was recently admitted in this hospital on January 18, 2017 when she had acute calculus cholecystitis due to E. coli and also E. coli UTI with associated acute hypoxemic respiratory failure. She was transferred to long term home for rehabilitation. In the emergency room she was evaluated ultrasound of the abdomen was done and showed gallstones also found was a 2.3 cm hypoechoic indeterminate lesion on of the right mid kidney which was present from previous CAT scan done for 01/18/2017. She was also found to elevated liver enzymes with elevated direct bilirubin the pattern of the liver enzymes is consistent t with obstructive jaundice. The ultrasound of the abdomen done did not show dilated common bile duct or intrahepatic duct. Hospital Course Hospital Course: She was admitted because of E. coli septicemia, associated with acute cholecystitis, she was treated with IV antibiotic. She was initially empirically treated with intravenous Unasyn, the bacteria was resistant to Unasyn but sensitive to cefazolin and the antibiotic was changed to cefazolin. It was felt that the source of the E. coli septicemia is the gallbladder she was seen by the surgeon, initially she refused surgical intervention but she was ultimately convinced that the gallbladder needed to be removed and she consented to surgery she underwent laparoscopic cholecystectomy without complications. Plan is to transfer to intermediate for rehabilitation before she is discharged home Physical Exam Vital Signs: Temp Pulse Resp BP Pulse Ox 98.1 F 81 18 147/93 H 93 03/25/17 16:00 03/25/17 16:00 03/25/17 16:00 03/25/17 16:00 03/25/17 16:00 Intake & Output 03/24/17 03/25/17 03/26/17 06:59 06:59 06:59 Intake Total 1480 2114 460 Output Total 2030 1725 Balance -550 389 460 General appearance: PRESENT: no acute distress Eye exam: PRESENT: PERRLA Respiratory exam: PRESENT: clear to auscultation mary Cardiovascular exam: PRESENT: +S1, +S2 GI/Abdominal exam: PRESENT: soft Neurological exam: PRESENT: alert Results Laboratory Results: 03/25/17 04:50 03/25/17 04:50 03/25/17 03/25/17 04:50 04:50 WBC 5.8 RBC 3.41 L Hgb 10.2 L Hct 31.5 L MCV 92 MCH 29.8 MCHC 32.3 RDW 16.0 H Plt Count 216 Sodium 134.9 L Potassium 3.5 L Chloride 97 L Carbon Dioxide 33 H Anion Gap 5 BUN 11 Creatinine 0.51 L Est GFR ( Amer) > 60 Est GFR (Non-Af Amer) > 60 Glucose 86 Calcium 8.4 03/22/17 03/22/17 16:58 16:58 Creatine Kinase < 20 L CK-MB (CK-2) 0.34 Troponin I < 0.012 Impressions: Abdomen Ultrasound 03/16/17 21:12 IMPRESSION: 1. Indeterminate 2.2 cm hypoechoic lesion of the right kidney may indicate a hemorrhagic cyst ; other neoplasm cannot be excluded. Consider further evaluation with dynamic contrast CT of the kidneys or ultrasound surveillance in 3 months. 2. Cholelithiasis. 3. Partially obscured pancreas and aorta. Abdomen/Pelvis CT 03/18/17 00:00 IMPRESSION: Cholelithiasis. Abdomen MRI 03/18/17 07:00 IMPRESSION: Cholelithiasis. No evidence of choledocholithiasis. Head CT 03/20/17 00:00 IMPRESSION: CHRONIC CHANGES OF ATROPHY AND MICROVASCULAR ISCHEMIA. NO ACUTE PROCESS. Chest X-Ray 03/22/17 16:58 IMPRESSION: A limited left lower lobe pneumonia cannot be ruled out.
[2017-03-25] MEDS ORDERED: POTASSIUM CHLORIDE 10 MEQ TABLET.SA PO ONE (19:30)
[2017-03-25] MEDS: ALPRAZOLAM 0.5 MG TABLET PO PRN (23:25)
[2017-03-26] MEDS: CEFAZOLIN 2 GM/D5W RTU 2 GM/50 ML RTUPB IV SCH ×3 (03:15→18:08)
[2017-03-26] MEDS: OXYCODONE-ACETAMINOPHEN 5-325 MG TABLET PO PRN ×2 (04:55→18:49)
[2017-03-26] MEDS: NORMAL SALINE 10 ML SDV (SCHEDULED) IV SCH ×3 (05:45→18:08)
[2017-03-26] MEDS: ASPIRIN 81 MG TABLET, CHEWABLE PO SCH (10:35)
[2017-03-26] MEDS: LEVOTHYROXINE SODIUM 0.088 MG TABLET PO SCH (10:35)
[2017-03-26] MEDS: METOPROLOL SUCCINATE 50 MG TAB.SR.24H PO SCH (10:35)
[2017-03-26] MEDS: ENOXAPARIN SODIUM INJ 40 MG/0.4 ML DISP.SYRIN SUBCUT SCH (10:36)
[2017-03-26 16:27] VITALS: BP 146/75
== END 2017-03-26 19:08 | DRG 854 ==
LOC: ER 19:22 → EH 03-17 01:49 → 4N 03-17 04:00
PROVIDERS: ADMIT Internal Medicine; ATTEND Internal Medicine
PROC: 0FB44ZZ Excision of Gallbladder, Percutaneous Endoscopic Approach (ICD-10-PCS; principal; 2017-03-21)
PROC: 0DNK4ZZ Release Ascending Colon, Percutaneous Endoscopic Approach (ICD-10-PCS; 2017-03-21)
PROC: 0DN64ZZ Release Stomach, Percutaneous Endoscopic Approach (ICD-10-PCS; 2017-03-21)
PROC: 0DN94ZZ Release Duodenum, Percutaneous Endoscopic Approach (ICD-10-PCS; 2017-03-21)
DX: A41.51 Sepsis due to Escherichia coli [E. coli] (principal); Z68.42 Body mass index [BMI] 45.0-49.9, adult; K80.12 Calculus of gallbladder with acute and chronic cholecystitis without obstruction; K82.8 Other specified diseases of gallbladder; K66.0 Peritoneal adhesions (postprocedural) (postinfection); I11.0 Hypertensive heart disease with heart failure; I34.0 Nonrheumatic mitral (valve) insufficiency; I27.2 Other secondary pulmonary hypertension; I48.2 Chronic atrial fibrillation; E66.01 Morbid (severe) obesity due to excess calories; I50.9 Heart failure, unspecified; E78.5 Hyperlipidemia, unspecified; J44.9 Chronic obstructive pulmonary disease, unspecified; J45.909 Unspecified asthma, uncomplicated; E03.9 Hypothyroidism, unspecified; K21.9 Gastro-esophageal reflux disease without esophagitis; K44.9 Diaphragmatic hernia without obstruction or gangrene; M19.90 Unspecified osteoarthritis, unspecified site; F32.9 Major depressive disorder, single episode, unspecified; Z90.49 Acquired absence of other specified parts of digestive tract; Z98.51 Tubal ligation status; Z79.82 Long term (current) use of aspirin; Z88.8 Allergy status to other drugs, medicaments and biological substances; Z79.899 Other long term (current) drug therapy
CPT/HCPCS: 00790; 36415; 36600; 70450; 71010; 74177; 74181; 76705; 80048; 80053; 80076; 81001; 82550; 82553; 82803; 82962; 83605; 83690; 84484; 85025; 85027; 85610; 85730; 86850; 86900; 86901; 87040; 87077; 87086; 87186; 88304; 93005; 93010; 93306; 94799; 99285; G8978-GP; G8979-GP; J0131; J0295; J0330; J0690; J0696; J1170; J1642; J1650; J2250; J2405; J2704; J3010; J3480; J3490

== ENCOUNTER → 2017-09-14 | Outpatient (CLI) | payer MEDICARE, OTHER ==
--- NOTE | 2017-09-14 15:25 | RADIOLOGY REPORT (SQ) ---
EXAM DESCRIPTION: CT HEAD WITHOUT COMPLETED DATE/TIME: 09/14/2017 3:11 pm REASON FOR STUDY: R51 HEADACHE R51 HEADACHE COMPARISON: None. 08/25/2017 TECHNIQUE: Axial images acquired through the brain without intravenous contrast. Images reviewed wi th bone, brain and subdural windows. Images stored on PACS. All CT scanners at this facility use dose modulation, iterative reconstruction, and/or weight based d osing when appropriate to reduce radiation dose to as low as reasonably achievable (ALARA). [facility]: Dose Right [facility]: CareDose [facility]: Dose Right [facility]: Teradose 4D [facility]: CollabRx RADIATION DOSE: mGy. LIMITATIONS: None. FINDINGS: VENTRICLES: Prominent. CEREBRUM: No masses. No hemorrhage. No midline shift. Areas of low density in the white matter mos t likely due to chronic micro-vascular ischemic change. No evidence for acute infarction. CEREBELLUM: No masses. No hemorrhage. No alteration of density. No evidence for acute infarction. EXTRAAXIAL SPACES: Mild age-related involutional change. No fluid collections. No masses. ORBITS AND GLOBE: No intra- or extraconal masses. Normal contour of globe without masses. CALVARIUM: No fracture. PARANASAL SINUSES: No fluid or mucosal thickening. SOFT TISSUES: No mass or hematoma. OTHER: No other significant finding. IMPRESSION: MILD CHRONIC CHANGES OF ATROPHY AND MICROVASCULAR ISCHEMIA. NO ACUTE PROCESS. No farrell e since recent study. EVIDENCE OF ACUTE STROKE: NO. TECHNICAL DOCUMENTATION: JOB ID: [id number] Quality ID # [id number]: Final reports with documentation of one or more dose reduction techniques (e.g., Au tomated exposure control, adjustment of the mA and/or kV according to patient size, use of iterative reconstruction technique) 2010 [employer]- All Rights Reserved
== END ==
LOC: RAD 14:48
PROVIDERS: ATTEND Internal Medicine
DX: R51 Headache (principal)
CPT/HCPCS: 70450

== ENCOUNTER 2017-12-03 12:46 | Inpatient (IN) | payer MEDICARE, OTHER ==
[2017-12-03 14:17] LABS: HEMATOCRIT 35.8 % (36.0-47.0); HEMOGLOBIN 11.7 g/dL (12.0-15.5); MEAN CORPUSCULAR HEMOGLOBIN 30.3 pg (27.0-33.4); MEAN CORPUSCULAR HGB CONC 32.6 g/dL (32.0-36.0); MEAN CORPUSCULAR VOLUME 93 fl (80-97); PLATELET COUNT 242 10^3/uL (150-450); RED BLOOD COUNT 3.85 10^6/uL (3.72-5.28); RED CELL DISTRIBUTION WIDTH 14.9 % (11.5-14.0); WHITE BLOOD COUNT 11.5 10^3/uL (4.0-10.5)
[2017-12-03 14:40] LABS: ALANINE AMINOTRANSFERASE 29 U/L (9-52); ALBUMIN 3.4 g/dL (3.5-5.0); ALKALINE PHOSPHATASE 63 U/L (38-126); ANION GAP 9 (5-19); ASPARTATE AMINO TRANSFERASE 25 U/L (14-36); BILIRUBIN,DIRECT 0.3 mg/dL (0.0-0.4); BILIRUBIN,TOTAL 0.9 mg/dL (0.2-1.3); BLOOD UREA NITROGEN 35 mg/dL (7-20); CALCIUM 9.1 mg/dL (8.4-10.2); CARBON DIOXIDE 36 mmol/L (22-30); CHLORIDE 91 mmol/L (98-107); CREATINE KINASE 44 U/L (30-135); GLUCOSE 112 mg/dL (75-110); POTASSIUM 3.9 mmol/L (3.6-5.0); SODIUM 135.6 mmol/L (137-145); TOTAL PROTEIN 6.5 g/dL (6.3-8.2)
--- NOTE | 2017-12-03 14:46 | RADIOLOGY REPORT (SQ) ---
EXAM DESCRIPTION: CHEST SINGLE VIEW COMPLETED DATE/TIME: 12/03/2017 2:21 pm REASON FOR STUDY: sepsis COMPARISON: Chest films 03/16/2017, 03/22/2017, 08/25/2017 EXAM PARAMETERS: NUMBER OF VIEWS: One view. TECHNIQUE: Single frontal radiographic view of the chest acquired. RADIATION DOSE: NA LIMITATIONS: None. FINDINGS: LUNGS AND PLEURA: Minimal left retrocardiac airspace disease. Lungs are otherwise well inflated and clear. No pleural effusion. No pneumothorax. MEDIASTINUM AND HILAR STRUCTURES: Tortuous uncoiled thoracic aorta. HEART AND VASCULAR STRUCTURES: Moderate cardiomegaly BONES: No acute findings. HARDWARE: None in the chest. OTHER: No other significant finding. IMPRESSION: Minimal left basilar airspace disease Cardiomegaly with tortuous uncoiled thoracic aorta TECHNICAL DOCUMENTATION: JOB ID: [id number] [employer]- All Rights Reserved
[2017-12-03 14:48] LABS: CREATINE KINASE MB 1.45 ng/mL (<4.55)
[2017-12-03 14:54] LABS: TROPONIN I 0.255 ng/mL
[2017-12-03 14:57] LABS: FREE T4 (FREE THYROXINE) 1.55 ng/dL (0.78-2.19)
[2017-12-03 15:11] LABS: THYROID STIMULATING HORMONE 4.9 uIU/mL (0.47-4.68)
[2017-12-03] MEDS: NORMAL SALINE 1000 ML 1,000 ML IV PRN (16:44)
[2017-12-03] MEDS ORDERED: LEVOFLOXACIN 750 MG/D5W RTU 750 MG/150 ML RTUPB IV ONE (17:00)
[2017-12-03 18:18] LABS: APPEARANCE,URINE SLIGHTLY-CLOUDY; BILIRUBIN,URINE NEGATIVE (NEGATIVE); COLOR,URINE YELLOW; GLUCOSE, URINE NEGATIVE (NEGATIVE); KETONES,URINE NEGATIVE (NEGATIVE); LEUKOCYTE ESTERASE,URINE NEGATIVE (NEGATIVE); NITRITE,URINE NEGATIVE (NEGATIVE); PROTEIN,URINE NEGATIVE (NEGATIVE); URINE SPECIFIC GRAVITY 1.016
--- NOTE | 2017-12-03 18:29 | EKG REPORT ---
SEVERITY:- ABNORMAL ECG - ATRIAL FIBRILLATION BORDERLINE LEFT AXIS DEVIATION ABNRM R PROG, CONSIDER ASMI OR LEAD PLACEMENT : Confirmed by: Hitesh Singh MD 03-Dec-2017 18:28:29
[2017-12-03 19:20] LABS: ARTERIAL BLOOD BASE EXCESS 7.9 mmol/L; ARTERIAL BLOOD H2CO3 1.74 mmol/L (1.05-1.35); ARTERIAL BLOOD HCO3 34.4 mmol/L (20-26); ARTERIAL BLOOD O2 SATURATION 98.6 % (94-98); ARTERIAL BLOOD PCO2 57.8 mmHg (35-45); ARTERIAL BLOOD PH 7.39 (7.35-7.45); ARTERIAL BLOOD TOTAL CO2 36.1 mmol/L (21-25)
[2017-12-03 19:21] LABS: ARTERIAL BLOOD FIO2 2L
[2017-12-03] MEDS: IPRATROPIUM/ALBUTEROL 0.5-2.5 MG/3 ML AMPUL NEB SCH (19:32)
[2017-12-03] MEDS ORDERED: BUTALB/ACETAMINOPHEN/CAFFEINE 1 TAB EACH PO PRN (21:03)
--- NOTE | 2017-12-03 21:13 | PDOC H&P ---
History of Present Illness Admission Date/PCP: 12/03/17 12:46 NIKKI MCCULLOUGH MD History of Present Illness: GIUSEPPE RINCON is a 82 year old female,She was brought to the office today by her daughter for evaluation of many complaints including confusion, fever, malaise, in the office she was evaluated, on examination she looks acutely ill, she was also wheezing on auscultation of the chest, she has a history of chronic atrial fibrillation, CVA, she is on chronic anticoagulation. She is incontinent of urine because of all these factors and the concern for pneumonia she was admitted directly from the office into the hospital for evaluation and management. A chest x-ray was done in the hospital does suggest left lower lobe pneumonia there was associated leukocytosis the troponin was elevated though she has no chest pain or chest pressure to suggest acute coronary syndrome the EKG was atrial fibrillation with no acute ST or T-wave segment change. Past Medical History Cardiac Medical History: Reports: Atrial Fibrillation, Hyperlipidema, Hypertension Pulmonary Medical History: Reports: Asthma, Chronic Obstructive Pulmonary Disease (COPD), Sleep Apnea - doesn't use cpap Neurological Medical History: Denies: Seizures Endocrine Medical History: Reports: Hypothyroidism GI Medical History: Reports: Gastroesophageal Reflux Disease, Hiatal Hernia Denies: Hepatitis Musculoskeltal Medical History: Reports: Arthritis Psychiatric Medical History: Reports: Depression Past Surgical History Past Surgical History: Reports: Appendectomy, Orthopedic Surgery - bilat knee, Tonsillectomy, Tubal Ligation Social History Smoking Status: Never Smoker Frequency of Alcohol Use: None Hx Recreational Drug Use: No Hx Prescription Drug Abuse: No Family History Family History: Reviewed & Not Pertinent Parental Family History Reviewed: Yes Children Family History Reviewed: Yes Sibling(s) Family History Reviewed.: Yes Medication/Allergy Home Medications: Alprazolam [Xanax] 1 mg PO QHS 12/03/17 Apixaban [Eliquis 2.5 mg Tablet] 2.5 mg PO BID 12/03/17 Atorvastatin Calcium [Lipitor 40 mg Tablet] 40 mg PO QHS 12/03/17 Butalb/Acetaminophen/Caffeine [Fioricet (50-325-40 mg) Tablet] 1 tab PO Q4HP PRN 12/03/17 Levothyroxine Sodium [Synthroid] 100 mcg PO Q6AM 12/03/17 Losartan Potassium [Cozaar 50 mg Tablet] 50 mg PO DAILY 12/03/17 Mupirocin Calcium [Bactroban 2% Cream 15 gm] 1 applic TOP DAILYP PRN 12/03/17 Sertraline HCl [Zoloft] 25 mg PO QAM 12/03/17 Tramadol HCl [Ultram 50 mg Tablet] 50 mg PO Q6HP PRN 12/03/17 Allergies/Adverse Reactions: meperidine HCl [From Demerol] Allergy (Severe, Verified 08/25/17 23:24) Review of Systems Constitutional: PRESENT: anorexia, fever(s) Eyes: ABSENT: visual disturbances Ears: ABSENT: hearing changes Cardiovascular: PRESENT: dyspnea on exertion Respiratory: PRESENT: cough, dyspnea Gastrointestinal: ABSENT: abdominal pain, constipation, diarrhea, hematemesis, hematochezia, nausea, vomiting Genitourinary: ABSENT: dysuria, hematuria Musculoskeletal: ABSENT: joint swelling Integumentary: ABSENT: rash, wounds Neurological: ABSENT: abnormal gait, abnormal speech, confusion, dizziness, focal weakness, syncope Psychiatric: ABSENT: anxiety, depression, homidical ideation, suicidal ideation Endocrine: ABSENT: cold intolerance, heat intolerance, menstrual abnormalities, polydipsia, polyuria Hematologic/Lymphatic: ABSENT: easy bleeding, easy bruising, lymphadenopathy Physical Exam Vital Signs: Temp Pulse Resp BP Pulse Ox 98.7 F 81 18 114/71 94 12/03/17 15:53 12/03/17 15:53 12/03/17 15:53 12/03/17 15:53 12/03/17 15:53 Intake & Output 12/02/17 12/03/17 12/04/17 06:59 06:59 06:59 Intake Total 440 Output Total 200 Balance 240 Weight 123.3 kg General appearance: PRESENT: mild distress Head exam: PRESENT: atraumatic, normocephalic Eye exam: PRESENT: conjunctiva pink, EOMI, PERRLA Ear exam: PRESENT: normal external ear exam Mouth exam: PRESENT: moist, tongue midline Neck exam: PRESENT: full ROM Cardiovascular exam: PRESENT: irregular rhythm, RRR, +S1, +S2 Vascular exam: PRESENT: normal capillary refill GI/Abdominal exam: PRESENT: normal bowel sounds, soft Rectal exam: PRESENT: deferred Neurological exam: PRESENT: alert, CN II-XII grossly intact. ABSENT: motor sensory deficit Psychiatric exam: PRESENT: appropriate affect, normal mood Skin exam: PRESENT: dry, intact, warm. ABSENT: cyanosis, rash Results Laboratory Results: 12/03/17 13:56 12/03/17 13:56 12/03/17 12/03/17 12/03/17 13:56 13:56 13:56 WBC 11.5 H RBC 3.85 Hgb 11.7 L Hct 35.8 L MCV 93 MCH 30.3 MCHC 32.6 RDW 14.9 H Plt Count 242 Carbonic Acid HCO3/H2CO3 Ratio ABG pH ABG pCO2 ABG pO2 ABG HCO3 ABG O2 Saturation ABG Base Excess FiO2 Sodium 135.6 L Potassium 3.9 Chloride 91 L Carbon Dioxide 36 H Anion Gap 9 BUN 35 H Creatinine 0.90 Est GFR ( Amer) > 60 Est GFR (Non-Af Amer) > 60 Glucose 112 H Lactic Acid Calcium 9.1 Total Bilirubin 0.9 AST 25 ALT 29 Alkaline Phosphatase 63 Total Protein 6.5 Albumin 3.4 L TSH 4.90 H Free T4 1.55 Urine Color Urine Appearance Urine pH Ur Specific [place] Urine Protein Urine Glucose (UA) Urine Ketones Urine Blood Urine Nitrite Ur Leukocyte Esterase Urine WBC (Auto) Urine RBC (Auto) 12/03/17 12/03/17 12/03/17 18:00 18:13 18:30 WBC RBC Hgb Hct MCV MCH MCHC RDW Plt Count Carbonic Acid 1.74 H HCO3/H2CO3 Ratio 19:1 ABG pH 7.39 ABG pCO2 57.8 H ABG pO2 133.0 H ABG HCO3 34.4 H ABG O2 Saturation 98.6 H ABG Base Excess 7.9 FiO2 2L Sodium Potassium Chloride Carbon Dioxide Anion Gap BUN Creatinine Est GFR ( Amer) Est GFR (Non-Af Amer) Glucose Lactic Acid 1.0 Calcium Total Bilirubin AST ALT Alkaline Phosphatase Total Protein Albumin TSH Free T4 Urine Color YELLOW Urine Appearance SLIGHTLY-CLOUDY Urine pH 5.0 Ur Specific [place] 1.016 Urine Protein NEGATIVE Urine Glucose (UA) NEGATIVE Urine Ketones NEGATIVE Urine Blood NEGATIVE Urine Nitrite NEGATIVE Ur Leukocyte Esterase NEGATIVE Urine WBC (Auto) 1 Urine RBC (Auto) 0 12/03/17 12/03/17 13:56 13:56 Creatine Kinase 44 CK-MB (CK-2) 1.45 Troponin I 0.255 Impressions: Chest X-Ray 12/03/17 00:00 IMPRESSION: Minimal left basilar airspace disease Cardiomegaly with tortuous uncoiled thoracic aorta Assessment & Plan - Diagnosis (1) Pneumonia Qualifiers: Pneumonia type: due to unspecified organism Laterality: left Lung location: lower lobe of lung Qualified Code(s): J18.1 - Lobar pneumonia, unspecified organism Is this a current diagnosis for this admission?: Yes Plan: She has pneumonia, she will be treated for community-acquired pathogens, cefepime and Levaquin will cover potential pathogens that causes pneumonia in the community (2) Elevated troponin Is this a current diagnosis for this admission?: Yes Plan: The significance of the elevated troponin is not clear to follow the trend does not seem to represent acute coronary syndrome could be a leak from the cardiomyopathy or related to acid-base disorder (3) Mixed acid base balance disorder Is this a current diagnosis for this admission?: Yes (4) Chronic atrial fibrillation Is this a current diagnosis for this admission?: Yes
[2017-12-03] MEDS ORDERED: LOSARTAN POTASSIUM 50 MG TABLET PO ONE (21:45)
[2017-12-03] MEDS ORDERED: APIXABAN 2.5 MG TABLET PO ONE (21:45)
[2017-12-03] MEDS: CEFEPIME HCL 2 GM in DEXTROSE 5%-WATER 50 ML IV SCH (22:19)
[2017-12-03] MEDS: ALPRAZOLAM 0.5 MG TABLET PO SCH (22:19)
[2017-12-03] MEDS: ATORVASTATIN CALCIUM 40 MG TABLET PO SCH (22:19)
[2017-12-03 23:41] LABS: CREATINE KINASE MB 0.96 ng/mL (<4.55)
[2017-12-03 23:58] LABS: TROPONIN I 0.15 ng/mL
[2017-12-04] MEDS: IPRATROPIUM/ALBUTEROL 0.5-2.5 MG/3 ML AMPUL NEB SCH ×4 (01:24→20:30)
[2017-12-04] MEDS: LEVOTHYROXINE SODIUM 0.1 MG TABLET PO SCH (06:31)
[2017-12-04] MEDS ORDERED: (PENDING PHARMACY ID) (Sertraline Hcl [Zoloft] 25 MG) PO SCH (08:00)
[2017-12-04 08:22] LABS: CREATINE KINASE MB 0.54 ng/mL (<4.55); TROPONIN I 0.117 ng/mL
[2017-12-04] MEDS: SERTRALINE HCL 50 MG TABLET PO SCH (09:00)
[2017-12-04] MEDS: LOSARTAN POTASSIUM 50 MG TABLET PO SCH (09:00)
[2017-12-04] MEDS: APIXABAN 2.5 MG TABLET PO SCH ×2 (09:00→17:20)
[2017-12-04] MEDS: LEVOFLOXACIN 750 MG/D5W RTU 750 MG/150 ML RTUPB IV SCH (09:02)
[2017-12-04] MEDS: CEFEPIME HCL 2 GM in DEXTROSE 5%-WATER 50 ML IV SCH ×2 (11:04→22:09)
--- NOTE | 2017-12-04 11:22 | PDOC PROGRESS REPORT ---
Subjective Progress Note for:: 12/04/17 Subjective:: Patient was admitted in the hospital for the pneumonia and elevated troponin Patient is currently doing fair Since denied any chest pain denied any shortness of the breath No abdominal pain Reason For Visit: SEPSIS,?UTI,PNEUMONIA Physical Exam Vital Signs: Temp Pulse Resp BP Pulse Ox 97.6 F 100 18 109/63 93 12/04/17 08:18 12/04/17 09:03 12/04/17 09:03 12/04/17 08:18 12/04/17 09:03 Intake & Output 12/03/17 12/04/17 12/05/17 06:59 06:59 06:59 Intake Total 1336 Output Total 200 Balance 1136 Weight 123.3 kg General appearance: PRESENT: no acute distress, well-developed, well-nourished Head exam: PRESENT: atraumatic, normocephalic Eye exam: PRESENT: conjunctiva pink, EOMI, PERRLA. ABSENT: scleral icterus Ear exam: PRESENT: normal external ear exam Mouth exam: PRESENT: moist, tongue midline Neck exam: PRESENT: full ROM. ABSENT: carotid bruit, JVD, lymphadenopathy, thyromegaly Respiratory exam: PRESENT: clear to auscultation mary Cardiovascular exam: PRESENT: RRR. ABSENT: diastolic murmur, rubs, systolic murmur Pulses: PRESENT: normal dorsalis pedis pul, +2 pedal pulses bilateral Vascular exam: PRESENT: normal capillary refill GI/Abdominal exam: PRESENT: normal bowel sounds, soft. ABSENT: distended, guarding, mass, organolmegaly, rebound, tenderness Rectal exam: PRESENT: deferred Extremities exam: ABSENT: pedal edema Neurological exam: PRESENT: alert, awake, oriented to person, oriented to place , oriented to time, oriented to situation, CN II-XII grossly intact. ABSENT: motor sensory deficit Psychiatric exam: PRESENT: appropriate affect, normal mood. ABSENT: homicidal ideation, suicidal ideation Skin exam: PRESENT: dry, intact, warm. ABSENT: cyanosis, rash Results Laboratory Results: 12/03/17 13:56 12/03/17 13:56 12/03/17 12/03/17 12/03/17 13:56 13:56 13:56 WBC 11.5 H RBC 3.85 Hgb 11.7 L Hct 35.8 L MCV 93 MCH 30.3 MCHC 32.6 RDW 14.9 H Plt Count 242 Carbonic Acid HCO3/H2CO3 Ratio ABG pH ABG pCO2 ABG pO2 ABG HCO3 ABG O2 Saturation ABG Base Excess FiO2 Sodium 135.6 L Potassium 3.9 Chloride 91 L Carbon Dioxide 36 H Anion Gap 9 BUN 35 H Creatinine 0.90 Est GFR ( Amer) > 60 Est GFR (Non-Af Amer) > 60 Glucose 112 H Lactic Acid Calcium 9.1 Total Bilirubin 0.9 AST 25 ALT 29 Alkaline Phosphatase 63 Total Protein 6.5 Albumin 3.4 L TSH 4.90 H Free T4 1.55 Urine Color Urine Appearance Urine pH Ur Specific [place] Urine Protein Urine Glucose (UA) Urine Ketones Urine Blood Urine Nitrite Ur Leukocyte Esterase Urine WBC (Auto) Urine RBC (Auto) 12/03/17 12/03/17 12/03/17 18:00 18:13 18:30 WBC RBC Hgb Hct MCV MCH MCHC RDW Plt Count Carbonic Acid 1.74 H HCO3/H2CO3 Ratio 19:1 ABG pH 7.39 ABG pCO2 57.8 H ABG pO2 133.0 H ABG HCO3 34.4 H ABG O2 Saturation 98.6 H ABG Base Excess 7.9 FiO2 2L Sodium Potassium Chloride Carbon Dioxide Anion Gap BUN Creatinine Est GFR ( Amer) Est GFR (Non-Af Amer) Glucose Lactic Acid 1.0 Calcium Total Bilirubin AST ALT Alkaline Phosphatase Total Protein Albumin TSH Free T4 Urine Color YELLOW Urine Appearance SLIGHTLY-CLOUDY Urine pH 5.0 Ur Specific [place] 1.016 Urine Protein NEGATIVE Urine Glucose (UA) NEGATIVE Urine Ketones NEGATIVE Urine Blood NEGATIVE Urine Nitrite NEGATIVE Ur Leukocyte Esterase NEGATIVE Urine WBC (Auto) 1 Urine RBC (Auto) 0 12/03/17 12/03/17 12/03/17 13:56 13:56 22:45 Creatine Kinase 44 31 CK-MB (CK-2) 1.45 Troponin I 0.255 12/03/17 12/04/17 12/04/17 22:45 07:30 07:30 Creatine Kinase 20 L CK-MB (CK-2) 0.96 0.54 Troponin I 0.150 0.117 Impressions: Chest X-Ray 12/03/17 00:00 IMPRESSION: Minimal left basilar airspace disease Cardiomegaly with tortuous uncoiled thoracic aorta Assessment & Plan - Diagnosis (1) Pneumonia Qualifiers: Pneumonia type: due to unspecified organism Laterality: left Lung location: lower lobe of lung Qualified Code(s): J18.1 - Lobar pneumonia, unspecified organism Is this a current diagnosis for this admission?: Yes Plan: Continues to IV antibiotic (2) Chronic atrial fibrillation Is this a current diagnosis for this admission?: Yes Plan: Continues on Eliquis (3) Elevated troponin Is this a current diagnosis for this admission?: Yes Plan: Likely a troponin I leak due to the sepsis patient's currently denied any chest pain and EKG is stable and the troponins trending down. 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
[2017-12-04 12:54] LABS: CREATINE KINASE MB 0.57 ng/mL (<4.55); TROPONIN I 0.105 ng/mL
[2017-12-04] MEDS: ALPRAZOLAM 0.5 MG TABLET PO PRN (17:20)
--- NOTE | 2017-12-04 17:35 | EKG REPORT ---
SEVERITY:- ABNORMAL ECG - ATRIAL FIBRILLATION, V-RATE 72-110 ABNRM R PROG, CONSIDER ASMI OR LEAD PLACEMENT NONSPECIFIC ST-T CHANGES LATERAL LEADS : Confirmed by: Hitesh Singh MD 04-Dec-2017 17:34:43
[2017-12-04] MEDS: NORMAL SALINE 1000 ML 1,000 ML IV PRN (22:13)
[2017-12-04] MEDS: ATORVASTATIN CALCIUM 40 MG TABLET PO SCH (22:13)
[2017-12-04] MEDS: ALPRAZOLAM 0.5 MG TABLET PO SCH (22:13)
[2017-12-05] MEDS: IPRATROPIUM/ALBUTEROL 0.5-2.5 MG/3 ML AMPUL NEB SCH ×4 (02:00→19:19)
[2017-12-05] MEDS: LEVOTHYROXINE SODIUM 0.1 MG TABLET PO SCH (05:40)
[2017-12-05 05:55] LABS: ABSOLUTE EOSINOPHILS # (AUTO) 0.1 10^3/uL (0.0-0.6); ABSOLUTE LYMPHOCYTES (AUTO) 0.8 10^3/uL (0.5-4.7); ABSOLUTE MONOCYTES (AUTO) 0.7 10^3/uL (0.1-1.4); ABSOLUTE NEUT (AUTO) 4.9 10^3/uL (1.7-8.2); BASOPHILS % (AUTO) 0.2 % (0-2); EOSINOPHILS % (AUTO) 1.7 % (0-6); HEMATOCRIT 32.4 % (36.0-47.0); HEMOGLOBIN 10.8 g/dL (12.0-15.5); LYMPHOCYTES % (AUTO) 12.1 % (13-45); MEAN CORPUSCULAR HEMOGLOBIN 30.8 pg (27.0-33.4); MEAN CORPUSCULAR HGB CONC 33.3 g/dL (32.0-36.0); MEAN CORPUSCULAR VOLUME 93 fl (80-97); MONOCYTES % (AUTO) 11.2 % (3-13); PLATELET COUNT 188 10^3/uL (150-450); RED CELL DISTRIBUTION WIDTH 14.9 % (11.5-14.0); SEGMENTED NEUTROPHILS % (AUTO) 74.8 % (42-78); TOTAL CELLS COUNTED % (AUTO) 100 %; WHITE BLOOD COUNT 6.5 10^3/uL (4.0-10.5)
[2017-12-05 06:20] LABS: ANION GAP 5 (5-19); BLOOD UREA NITROGEN 18 mg/dL (7-20); CALCIUM 8.6 mg/dL (8.4-10.2); CARBON DIOXIDE 36 mmol/L (22-30); CHLORIDE 100 mmol/L (98-107); GLUCOSE 92 mg/dL (75-110); POTASSIUM 3.9 mmol/L (3.6-5.0); SODIUM 141.2 mmol/L (137-145)
[2017-12-05] MEDS: SERTRALINE HCL 50 MG TABLET PO SCH (08:02)
[2017-12-05] MEDS: LOSARTAN POTASSIUM 50 MG TABLET PO SCH (09:12)
[2017-12-05] MEDS: APIXABAN 2.5 MG TABLET PO SCH ×2 (09:12→17:07)
[2017-12-05] MEDS: CEFEPIME HCL 2 GM in DEXTROSE 5%-WATER 50 ML IV SCH ×2 (09:12→21:26)
[2017-12-05] MEDS: LEVOFLOXACIN 750 MG/D5W RTU 750 MG/150 ML RTUPB IV SCH (09:12)
[2017-12-05] MEDS: ALPRAZOLAM 0.5 MG TABLET PO PRN (09:23)
--- NOTE | 2017-12-05 11:52 | PDOC PROGRESS REPORT ---
Subjective Progress Note for:: 12/05/17 Subjective:: Patient is currently doing fair Patient's denied any chest pain denied any shortness of the breath Is also noticed some shakiness in patients that this is going on for the last 2 months and usually takes Xanax for that Reason For Visit: SEPSIS,?UTI,PNEUMONIA Physical Exam Vital Signs: Temp Pulse Resp BP Pulse Ox 99.3 F 125 H 24 H 149/89 H 90 L 12/05/17 08:55 12/05/17 08:55 12/05/17 08:55 12/05/17 08:55 12/05/17 08:55 Intake & Output 12/04/17 12/05/17 12/06/17 06:59 06:59 06:59 Intake Total 1336 2378 Output Total 200 150 Balance 1136 2228 Weight 123.3 kg 123.3 kg General appearance: PRESENT: no acute distress, well-developed, well-nourished Head exam: PRESENT: atraumatic, normocephalic Eye exam: PRESENT: conjunctiva pink, EOMI, PERRLA. ABSENT: scleral icterus Ear exam: PRESENT: normal external ear exam Mouth exam: PRESENT: moist, tongue midline Neck exam: PRESENT: full ROM. ABSENT: carotid bruit, JVD, lymphadenopathy, thyromegaly Respiratory exam: PRESENT: clear to auscultation mary Cardiovascular exam: PRESENT: RRR. ABSENT: diastolic murmur, rubs, systolic murmur Pulses: PRESENT: normal dorsalis pedis pul, +2 pedal pulses bilateral Vascular exam: PRESENT: normal capillary refill GI/Abdominal exam: PRESENT: normal bowel sounds, soft. ABSENT: distended, guarding, mass, organolmegaly, rebound, tenderness Rectal exam: PRESENT: deferred Extremities exam: ABSENT: pedal edema Neurological exam: PRESENT: alert, awake, oriented to person. ABSENT: motor sensory deficit Additional comments: Mild tremor present in the upper extremity Psychiatric exam: PRESENT: appropriate affect, normal mood. ABSENT: homicidal ideation, suicidal ideation Skin exam: PRESENT: dry, intact, warm. ABSENT: cyanosis, rash Results Laboratory Results: 12/05/17 05:31 12/05/17 05:31 12/05/17 12/05/17 05:31 05:31 WBC 6.5 RBC 3.50 L Hgb 10.8 L Hct 32.4 L MCV 93 MCH 30.8 MCHC 33.3 RDW 14.9 H Plt Count 188 Seg Neutrophils % 74.8 Lymphocytes % 12.1 L Monocytes % 11.2 Eosinophils % 1.7 Basophils % 0.2 Absolute Neutrophils 4.9 Absolute Lymphocytes 0.8 Absolute Monocytes 0.7 Absolute Eosinophils 0.1 Absolute Basophils 0.0 Sodium 141.2 Potassium 3.9 Chloride 100 Carbon Dioxide 36 H Anion Gap 5 BUN 18 Creatinine 0.56 Est GFR ( Amer) > 60 Est GFR (Non-Af Amer) > 60 Glucose 92 Calcium 8.6 12/03/17 18:00 Catheterized Urine Urine Culture - Final NO GROWTH 2 DAYS 12/03/17 12/03/17 12/03/17 13:56 13:56 22:45 Creatine Kinase 44 31 CK-MB (CK-2) 1.45 Troponin I 0.255 12/03/17 12/04/17 12/04/17 22:45 07:30 07:30 Creatine Kinase 20 L CK-MB (CK-2) 0.96 0.54 Troponin I 0.150 0.117 12/04/17 12/04/17 12:20 12:20 Creatine Kinase 20 L CK-MB (CK-2) 0.57 Troponin I 0.105 Impressions: Chest X-Ray 12/03/17 00:00 IMPRESSION: Minimal left basilar airspace disease Cardiomegaly with tortuous uncoiled thoracic aorta Assessment & Plan - Diagnosis (1) Pneumonia Qualifiers: Pneumonia type: due to unspecified organism Laterality: left Lung location: lower lobe of lung Qualified Code(s): J18.1 - Lobar pneumonia, unspecified organism Is this a current diagnosis for this admission?: Yes Plan: Continues to IV antibiotic (2) Chronic atrial fibrillation Is this a current diagnosis for this admission?: Yes Plan: Continues on Eliquis (3) Elevated troponin Is this a current diagnosis for this admission?: Yes Plan: All EKGs stable denied any chest pain follow outpatients cardiology (4) Essential hypertension Is this a current diagnosis for this admission?: Yes Plan: Currently all stable (5) Tremor Is this a current diagnosis for this admission?: Yes Plan: Need for further evaluations as outpatients with the neurology - Time Time Spent with patient: 15-24 minutes Medications reviewed and adjusted accordingly: Yes Anticipated discharge: Home Within: Other - Inpatient Certification Medical Necessity: Need Close Monitoring Due to Risk of Patient Decompensation, Need For IV Fluids, Need for IV Antibiotics Post Hospital Care: D/C [facility] Documentation - Plan Summary Plan Summary: continue IV antibiotic
[2017-12-05] MEDS: ALPRAZOLAM 0.5 MG TABLET PO SCH (21:26)
[2017-12-05] MEDS: ATORVASTATIN CALCIUM 40 MG TABLET PO SCH (21:26)
[2017-12-06] MEDS: IPRATROPIUM/ALBUTEROL 0.5-2.5 MG/3 ML AMPUL NEB SCH ×4 (01:42→20:05)
[2017-12-06] MEDS: LEVOTHYROXINE SODIUM 0.1 MG TABLET PO SCH (06:31)
[2017-12-06 07:03] LABS: ABSOLUTE EOSINOPHILS # (AUTO) 0.2 10^3/uL (0.0-0.6); ABSOLUTE LYMPHOCYTES (AUTO) 0.9 10^3/uL (0.5-4.7); ABSOLUTE MONOCYTES (AUTO) 0.8 10^3/uL (0.1-1.4); ABSOLUTE NEUT (AUTO) 4.2 10^3/uL (1.7-8.2); BASOPHILS % (AUTO) 0.5 % (0-2); EOSINOPHILS % (AUTO) 3.5 % (0-6); HEMATOCRIT 31.8 % (36.0-47.0); HEMOGLOBIN 10.4 g/dL (12.0-15.5); MEAN CORPUSCULAR HEMOGLOBIN 30.6 pg (27.0-33.4); MEAN CORPUSCULAR HGB CONC 32.8 g/dL (32.0-36.0); MEAN CORPUSCULAR VOLUME 93 fl (80-97); MONOCYTES % (AUTO) 12.2 % (3-13); PLATELET COUNT 202 10^3/uL (150-450); RED BLOOD COUNT 3.41 10^6/uL (3.72-5.28); SEGMENTED NEUTROPHILS % (AUTO) 68.8 % (42-78); TOTAL CELLS COUNTED % (AUTO) 100 %; WHITE BLOOD COUNT 6.1 10^3/uL (4.0-10.5)
[2017-12-06 07:20] LABS: ANION GAP 5 (5-19); BLOOD UREA NITROGEN 19 mg/dL (7-20); CALCIUM 8.5 mg/dL (8.4-10.2); CARBON DIOXIDE 34 mmol/L (22-30); CHLORIDE 100 mmol/L (98-107); GLUCOSE 82 mg/dL (75-110); POTASSIUM 4.2 mmol/L (3.6-5.0); SODIUM 138.6 mmol/L (137-145)
[2017-12-06] MEDS: SERTRALINE HCL 50 MG TABLET PO SCH (08:17)
[2017-12-06] MEDS: CEFEPIME HCL 2 GM in DEXTROSE 5%-WATER 50 ML IV SCH (09:06)
[2017-12-06] MEDS: LEVOFLOXACIN 750 MG/D5W RTU 750 MG/150 ML RTUPB IV SCH (09:06)
[2017-12-06] MEDS: LOSARTAN POTASSIUM 50 MG TABLET PO SCH (09:07)
[2017-12-06] MEDS: APIXABAN 2.5 MG TABLET PO SCH ×2 (09:07→17:40)
[2017-12-06] MEDS: ALPRAZOLAM 0.5 MG TABLET PO PRN (11:25)
[2017-12-06] MEDS: TRAMADOL HCL 50 MG TABLET PO PRN (11:41)
[2017-12-06] MEDS: NORMAL SALINE 1000 ML 1,000 ML IV PRN (15:06)
--- NOTE | 2017-12-06 21:38 | PDOC PROGRESS REPORT ---
Subjective Progress Note for:: 12/06/17 Subjective:: She was seen by the bedside, she was admitted on Wednesday about 3 days ago when she had pneumonia, she was empirically started on IV antibiotic, Levaquin and cefepime. The blood culture grew staph aureus sensitive to Levaquin and cefepime. She has severe tremors that was noticed today, looks suspicious for parkinsonian tremor versus essential tremor we will obtain MRI of the brain Reason For Visit: SEPSIS,?UTI,PNEUMONIA Physical Exam Vital Signs: Temp Pulse Resp BP Pulse Ox 97.6 F 105 H 22 H 133/92 H 84 L 12/06/17 19:45 12/06/17 19:45 12/06/17 19:45 12/06/17 19:45 12/06/17 19:45 Intake & Output 12/05/17 12/06/17 12/07/17 06:59 06:59 06:59 Intake Total 2378 1545 1680 Output Total 150 2 Balance 2228 1543 1680 Weight 123.3 kg General appearance: PRESENT: no acute distress, well-developed, well-nourished Head exam: PRESENT: atraumatic, normocephalic Ear exam: PRESENT: normal external ear exam Mouth exam: PRESENT: moist, tongue midline Neck exam: PRESENT: full ROM Cardiovascular exam: PRESENT: RRR, +S1, +S2 Vascular exam: PRESENT: normal capillary refill GI/Abdominal exam: PRESENT: normal bowel sounds, soft Rectal exam: PRESENT: deferred Neurological exam: PRESENT: alert, ataxia, CN II-XII grossly intact Psychiatric exam: PRESENT: appropriate affect, normal mood Skin exam: PRESENT: dry, intact, warm Results Laboratory Results: 12/06/17 05:51 12/06/17 05:51 12/06/17 12/06/17 05:51 05:51 WBC 6.1 RBC 3.41 L Hgb 10.4 L Hct 31.8 L MCV 93 MCH 30.6 MCHC 32.8 RDW 15.0 H Plt Count 202 Seg Neutrophils % 68.8 Lymphocytes % 15.0 Monocytes % 12.2 Eosinophils % 3.5 Basophils % 0.5 Absolute Neutrophils 4.2 Absolute Lymphocytes 0.9 Absolute Monocytes 0.8 Absolute Eosinophils 0.2 Absolute Basophils 0.0 Sodium 138.6 Potassium 4.2 Chloride 100 Carbon Dioxide 34 H Anion Gap 5 BUN 19 Creatinine 0.51 L Est GFR ( Amer) > 60 Est GFR (Non-Af Amer) > 60 Glucose 82 Calcium 8.5 12/03/17 13:56 Blood Blood Culture - Final Staphylococcus Aureus 12/03/17 12/03/17 12/03/17 13:56 13:56 22:45 Creatine Kinase 44 31 CK-MB (CK-2) 1.45 Troponin I 0.255 12/03/17 12/04/17 12/04/17 22:45 07:30 07:30 Creatine Kinase 20 L CK-MB (CK-2) 0.96 0.54 Troponin I 0.150 0.117 12/04/17 12/04/17 12:20 12:20 Creatine Kinase 20 L CK-MB (CK-2) 0.57 Troponin I 0.105 Impressions: Chest X-Ray 12/03/17 00:00 IMPRESSION: Minimal left basilar airspace disease Cardiomegaly with tortuous uncoiled thoracic aorta Assessment & Plan - Diagnosis (1) Pneumonia Qualifiers: Pneumonia type: due to unspecified organism Laterality: left Lung location: lower lobe of lung Qualified Code(s): J18.1 - Lobar pneumonia, unspecified organism Is this a current diagnosis for this admission?: Yes (2) Elevated troponin Is this a current diagnosis for this admission?: Yes (3) Mixed acid base balance disorder Is this a current diagnosis for this admission?: Yes (4) Chronic atrial fibrillation Is this a current diagnosis for this admission?: Yes (5) Staphylococcus aureus septicemia Is this a current diagnosis for this admission?: Yes Plan: She has staph aureus septicemia, we will discontinue cefepime continue Levaquin (6) Parkinsonian syndrome Qualifiers: Parkinsonism type: unspecified Qualified Code(s): G20 - Parkinson's disease Is this a current diagnosis for this admission?: Yes Plan: Order MRI of the brain
[2017-12-06] MEDS: ATORVASTATIN CALCIUM 40 MG TABLET PO SCH (23:00)
[2017-12-06] MEDS: ALPRAZOLAM 0.5 MG TABLET PO SCH (23:57)
[2017-12-07] MEDS: IPRATROPIUM/ALBUTEROL 0.5-2.5 MG/3 ML AMPUL NEB SCH ×4 (02:20→20:54)
[2017-12-07] MEDS: LEVOTHYROXINE SODIUM 0.1 MG TABLET PO SCH (06:22)
[2017-12-07 06:30] LABS: BLOOD UREA NITROGEN 19 mg/dL (7-20); CALCIUM 8.8 mg/dL (8.4-10.2); GLUCOSE 90 mg/dL (75-110)
[2017-12-07 06:55] LABS: ANION GAP 7 (5-19); CARBON DIOXIDE 35 mmol/L (22-30); CHLORIDE 99 mmol/L (98-107); POTASSIUM 4.7 mmol/L (3.6-5.0)
[2017-12-07] MEDS: SERTRALINE HCL 50 MG TABLET PO SCH (07:43)
[2017-12-07] MEDS: TRAMADOL HCL 50 MG TABLET PO PRN (08:36)
[2017-12-07] MEDS: LEVOFLOXACIN 750 MG TABLET PO SCH (09:09)
[2017-12-07] MEDS: LOSARTAN POTASSIUM 50 MG TABLET PO SCH (09:09)
[2017-12-07] MEDS: APIXABAN 2.5 MG TABLET PO SCH ×2 (09:10→19:05)
[2017-12-07] MEDS: ALPRAZOLAM 0.5 MG TABLET PO PRN (09:39)
--- NOTE | 2017-12-07 16:30 | RADIOLOGY REPORT (SQ) ---
EXAM DESCRIPTION: MRI HEAD WITHOUT COMPLETED DATE/TIME: 12/07/2017 4:10 pm REASON FOR STUDY: parkisonian tremors COMPARISON: MRI brain 08/26/2017 TECHNIQUE: Multiplanar imaging includes non-contrasted T1, T2, FLAIR, and diffusion with ADC map seq uences. Images stored on PACS. LIMITATIONS: None. FINDINGS: ANATOMY: No developmental anomalies. 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 No hemorrhage. CEREBRUM: No MR evidence of acute ischemic change, acute intracranial hemorrhage, mass effect, or mid line shift. The left inferior occipital infarct seen on MR 08/26/2017 is barely visible on today's s tudy. Age-appropriate minimal bifrontal and biparietal small vessel ischemic change in the hemispher es. POSTERIOR FOSSA: Decreased conspicuity of substantia nigra in the brainstem, correlates with a histor y of parkinsonism. Punctate focus of hemosiderin deposition inferior right cerebellar hemispheric do ubtful clinical significance axial image 7. Internal auditory canals, inner ear structures unremarka ble. Minimal left mastoid air cell fluid DIFFUSION IMAGING: Negative for acute or sub-acute infarction. ORBITS: Post cataract surgery bilaterally PARANASAL SINUSES: No fluid levels. Mucosa normal. OTHER: No other significant finding. IMPRESSION: Decreased conspicuity of substantia nigra in the brainstem, correlates with a history of parkinsonism EVIDENCE OF ACUTE STROKE: NO. TECHNICAL DOCUMENTATION: JOB ID: [id number] [employer]- All Rights Reserved
--- NOTE | 2017-12-07 21:01 | PDOC PROGRESS REPORT ---
Subjective Progress Note for:: 12/07/17 Subjective:: Patient was seen by the bedside, MRI brain was done today, issue decrease substantial gyral correlates with Parkinson disease Reason For Visit: SEPSIS,?UTI,PNEUMONIA Physical Exam Vital Signs: Temp Pulse Resp BP Pulse Ox 97.7 F 110 H 18 128/77 H 98 12/07/17 17:09 12/07/17 17:09 12/07/17 17:09 12/07/17 17:09 12/07/17 17:09 Intake & Output 12/06/17 12/07/17 12/08/17 06:59 06:59 06:59 Intake Total 1545 2330 1470 Output Total 2 Balance 1543 2330 1470 Weight 126.2 kg General appearance: PRESENT: no acute distress Eye exam: PRESENT: PERRLA Respiratory exam: PRESENT: clear to auscultation mary Cardiovascular exam: PRESENT: +S1, +S2 GI/Abdominal exam: PRESENT: soft Neurological exam: PRESENT: alert Results Laboratory Results: 12/06/17 05:51 12/07/17 05:37 12/07/17 05:37 Sodium 141.0 Potassium 4.7 Chloride 99 Carbon Dioxide 35 H Anion Gap 7 BUN 19 Creatinine 0.55 Est GFR ( Amer) > 60 Est GFR (Non-Af Amer) > 60 Glucose 90 Calcium 8.8 12/03/17 12/03/17 12/03/17 13:56 13:56 22:45 Creatine Kinase 44 31 CK-MB (CK-2) 1.45 Troponin I 0.255 12/03/17 12/04/17 12/04/17 22:45 07:30 07:30 Creatine Kinase 20 L CK-MB (CK-2) 0.96 0.54 Troponin I 0.150 0.117 12/04/17 12/04/17 12:20 12:20 Creatine Kinase 20 L CK-MB (CK-2) 0.57 Troponin I 0.105 Impressions: Chest X-Ray 12/03/17 00:00 IMPRESSION: Minimal left basilar airspace disease Cardiomegaly with tortuous uncoiled thoracic aorta Head MRI 12/07/17 00:00 IMPRESSION: Decreased conspicuity of substantia nigra in the brainstem, correlates with a history of parkinsonism EVIDENCE OF ACUTE STROKE: NO. Assessment & Plan - Diagnosis (1) Pneumonia Qualifiers: Pneumonia type: due to unspecified organism Laterality: left Lung location: lower lobe of lung Qualified Code(s): J18.1 - Lobar pneumonia, unspecified organism Is this a current diagnosis for this admission?: Yes (2) Elevated troponin Is this a current diagnosis for this admission?: Yes (3) Mixed acid base balance disorder Is this a current diagnosis for this admission?: Yes (4) Chronic atrial fibrillation Is this a current diagnosis for this admission?: Yes (5) Staphylococcus aureus septicemia Is this a current diagnosis for this admission?: Yes (6) Parkinsonian syndrome Qualifiers: Parkinsonism type: unspecified Qualified Code(s): G20 - Parkinson's disease Is this a current diagnosis for this admission?: Yes Plan: Start Sinemet
[2017-12-07] MEDS: ALPRAZOLAM 0.5 MG TABLET PO SCH (22:28)
[2017-12-07] MEDS: CARBIDOPA/LEVODOPA 25-100 MG TABLET PO SCH (22:29)
[2017-12-07] MEDS: ATORVASTATIN CALCIUM 40 MG TABLET PO SCH (22:29)
[2017-12-08] MEDS: TRAMADOL HCL 50 MG TABLET PO PRN (00:25)
[2017-12-08] MEDS: IPRATROPIUM/ALBUTEROL 0.5-2.5 MG/3 ML AMPUL NEB SCH ×3 (02:28→14:14)
[2017-12-08] MEDS: LEVOTHYROXINE SODIUM 0.1 MG TABLET PO SCH (06:57)
[2017-12-08] MEDS: SERTRALINE HCL 50 MG TABLET PO SCH (07:00)
[2017-12-08] MEDS: CARBIDOPA/LEVODOPA 25-100 MG TABLET PO SCH (09:28)
[2017-12-08] MEDS: LEVOFLOXACIN 750 MG TABLET PO SCH (09:28)
[2017-12-08] MEDS: LOSARTAN POTASSIUM 50 MG TABLET PO SCH (09:28)
[2017-12-08] MEDS: APIXABAN 2.5 MG TABLET PO SCH (09:29)
[2017-12-08] MEDS: ALPRAZOLAM 0.5 MG TABLET PO PRN (09:32)
[2017-12-08] MEDS: NORMAL SALINE 1000 ML 1,000 ML IV PRN (14:38)
--- NOTE | 2017-12-08 14:47 | PDOC DISCHARGE SUMMARY ---
General - Admit/Disc Date/PCP Admission Date/Primary Care Provider: 12/03/17 12:46 NIKKI MCCULOLUGH MD Discharge Date: 12/08/17 - Discharge Diagnosis (1) Pneumonia Is this a current diagnosis for this admission?: Yes (2) Elevated troponin Is this a current diagnosis for this admission?: Yes (3) Mixed acid base balance disorder Is this a current diagnosis for this admission?: Yes (4) Chronic atrial fibrillation Is this a current diagnosis for this admission?: Yes (5) Staphylococcus aureus septicemia Is this a current diagnosis for this admission?: Yes (6) Parkinsonian syndrome Is this a current diagnosis for this admission?: Yes - Additional Information Discharge Diet: As Tolerated Discharge Activity: Activity As Tolerated Prescriptions: Carbidopa/Levodopa [Sinemet 25-100 mg Tablet] 1 tab PO Q12 #60 tablet Levofloxacin [Levaquin 750 mg Tablet] 750 mg PO DAILY #14 tablet Home Medications: Alprazolam [Xanax] 1 mg PO QHS 12/03/17 Apixaban [Eliquis 2.5 mg Tablet] 2.5 mg PO BID 12/03/17 Atorvastatin Calcium [Lipitor 40 mg Tablet] 40 mg PO QHS 12/03/17 Levothyroxine Sodium [Synthroid] 100 mcg PO Q6AM 12/03/17 Losartan Potassium [Cozaar 50 mg Tablet] 50 mg PO DAILY 12/03/17 Sertraline HCl [Zoloft] 25 mg PO QAM 12/03/17 Tramadol HCl [Ultram 50 mg Tablet] 50 mg PO Q6HP PRN 12/03/17 Carbidopa/Levodopa [Sinemet 25-100 mg Tablet] 1 tab PO Q12 #60 tablet 12/08/17 Levofloxacin [Levaquin 750 mg Tablet] 750 mg PO DAILY #14 tablet 12/08/17 History of Present Illness History of Present Illness: GIUSEPPE RINCON is a 82 year old female,She was brought to the office today by her daughter for evaluation of many complaints including confusion, fever, malaise, in the office she was evaluated, on examination she looks acutely ill, she was also wheezing on auscultation of the chest, she has a history of chronic atrial fibrillation, CVA, she is on chronic anticoagulation. She is incontinent of urine because of all these factors and the concern for pneumonia she was admitted directly from the office into the hospital for evaluation and management. A chest x-ray was done in the hospital does suggest left lower lobe pneumonia there was associated leukocytosis the troponin was elevated though she has no chest pain or chest pressure to suggest acute coronary syndrome the EKG was atrial fibrillation with no acute ST or T-wave segment change. Hospital Course Hospital Course: Patient was admitted for the management of pneumonia, staph aureus septicemia, she was initially empirically treated with IV antibiotic, cefepime and Levaquin blood culture grew staph aureus sensitive to both antibiotic, she was continued on Levaquin and cefepime was discontinued. She was noticed to have parkinsonian syndrome, MRI brain was done MRI brain showed decreased conspicuity of substantia nigra in the brainstem that correlates with Parkinson' s disease. She was started on Sinemet, plan is for to follow with neurology on discharge Physical Exam Vital Signs: Temp Pulse Resp BP Pulse Ox 99.3 F 113 H 22 H 127/82 H 90 L 12/08/17 11:41 12/08/17 11:41 12/08/17 11:41 12/08/17 11:41 12/08/17 11:41 Intake & Output 12/07/17 12/08/17 12/09/17 06:59 06:59 06:59 Intake Total 2330 2530 222 Balance 2330 2530 222 Weight 126.2 kg 127.3 kg General appearance: PRESENT: no acute distress Head exam: PRESENT: atraumatic, normocephalic Eye exam: PRESENT: conjunctiva pink, EOMI, PERRLA Ear exam: PRESENT: normal external ear exam Mouth exam: PRESENT: moist, tongue midline Neck exam: PRESENT: full ROM Respiratory exam: PRESENT: clear to auscultation mary Cardiovascular exam: PRESENT: RRR, +S1, +S2 Vascular exam: PRESENT: normal capillary refill GI/Abdominal exam: PRESENT: normal bowel sounds, soft Rectal exam: PRESENT: deferred Neurological exam: PRESENT: alert, ataxia. ABSENT: motor sensory deficit Psychiatric exam: ABSENT: homicidal ideation, suicidal ideation Skin exam: PRESENT: dry, intact, warm Results Laboratory Results: 12/06/17 05:51 12/07/17 05:37 12/03/17 12/03/17 12/03/17 13:56 13:56 22:45 Creatine Kinase 44 31 CK-MB (CK-2) 1.45 Troponin I 0.255 12/03/17 12/04/17 12/04/17 22:45 07:30 07:30 Creatine Kinase 20 L CK-MB (CK-2) 0.96 0.54 Troponin I 0.150 0.117 12/04/17 12/04/17 12:20 12:20 Creatine Kinase 20 L CK-MB (CK-2) 0.57 Troponin I 0.105 Impressions: Chest X-Ray 12/03/17 00:00 IMPRESSION: Minimal left basilar airspace disease Cardiomegaly with tortuous uncoiled thoracic aorta Head MRI 12/07/17 00:00 IMPRESSION: Decreased conspicuity of substantia nigra in the brainstem, correlates with a history of parkinsonism EVIDENCE OF ACUTE STROKE: NO.
[2017-12-08 16:47] VITALS: BP 131/71
== END 2017-12-08 17:40 | disposition home health service (06) | DRG 871 ==
LOC: 3S 12:46
PROVIDERS: ADMIT Internal Medicine; ATTEND Internal Medicine
DX: A41.01 Sepsis due to Methicillin susceptible Staphylococcus aureus (principal); J18.1 Lobar pneumonia, unspecified organism; E87.4 Mixed disorder of acid-base balance; I48.91 Unspecified atrial fibrillation; G20 Parkinson's disease; I48.2 Chronic atrial fibrillation; E78.5 Hyperlipidemia, unspecified; I10 Essential (primary) hypertension; J44.9 Chronic obstructive pulmonary disease, unspecified; E03.9 Hypothyroidism, unspecified; F32.9 Major depressive disorder, single episode, unspecified; R32 Unspecified urinary incontinence; R74.8 Abnormal levels of other serum enzymes; M19.90 Unspecified osteoarthritis, unspecified site; Z90.49 Acquired absence of other specified parts of digestive tract; Z79.02 Long term (current) use of antithrombotics/antiplatelets; Z88.8 Allergy status to other drugs, medicaments and biological substances; Z86.73 Personal history of transient ischemic attack (TIA), and cerebral infarction without residual deficits
CPT/HCPCS: 36415; 36600; 70551; 71045; 80048; 80076; 81001; 82550; 82553; 82803; 83605; 84439; 84443; 84484; 85025; 85027; 87040; 87077; 87086; 87186; 93005; 93010; G8978-GP; G8979-GP; G8996-GN; G8997-GN; J0692; J1956; J3490; J7030; J7620

== ENCOUNTER 2019-03-21 18:40 | Inpatient (IN) | payer MEDICARE, OTHER ==
[2019-03-21 21:18] LABS: ABSOLUTE BASOPHILS # (AUTO) 0.1 10^3/uL (0.0-0.2); ABSOLUTE EOSINOPHILS # (AUTO) 0.2 10^3/uL (0.0-0.6); ABSOLUTE LYMPHOCYTES (AUTO) 1.2 10^3/uL (0.5-4.7); ABSOLUTE MONOCYTES (AUTO) 0.7 10^3/uL (0.1-1.4); ABSOLUTE NEUT (AUTO) 3.1 10^3/uL (1.7-8.2); BASOPHILS % (AUTO) 1.1 % (0-2); EOSINOPHILS % (AUTO) 4.5 % (0-6); HEMATOCRIT 36.5 % (36.0-47.0); HEMOGLOBIN 11.7 g/dL (12.0-15.5); LYMPHOCYTES % (AUTO) 22.1 % (13-45); MEAN CORPUSCULAR HEMOGLOBIN 29.4 pg (27.0-33.4); MEAN CORPUSCULAR VOLUME 92 fl (80-97); MONOCYTES % (AUTO) 13.4 % (3-13); PLATELET COUNT 217 10^3/uL (150-450); RED BLOOD COUNT 3.97 10^6/uL (3.72-5.28); RED CELL DISTRIBUTION WIDTH 14.9 % (11.5-14.0); SEGMENTED NEUTROPHILS % (AUTO) 58.9 % (42-78); TOTAL CELLS COUNTED % (AUTO) 100 %; WHITE BLOOD COUNT 5.2 10^3/uL (4.0-10.5)
[2019-03-21 21:35] LABS: ALANINE AMINOTRANSFERASE 19 U/L (9-52); ALBUMIN 3.2 g/dL (3.5-5.0); ALKALINE PHOSPHATASE 89 U/L (38-126); ANION GAP 6 (5-19); ASPARTATE AMINO TRANSFERASE 21 U/L (14-36); BILIRUBIN,DIRECT 0.3 mg/dL (0.0-0.4); BILIRUBIN,TOTAL 0.5 mg/dL (0.2-1.3); BLOOD UREA NITROGEN 24 mg/dL (7-20); CARBON DIOXIDE 36 mmol/L (22-30); CHLORIDE 97 mmol/L (98-107); GLUCOSE 91 mg/dL (75-110); POTASSIUM 4.8 mmol/L (3.6-5.0); SODIUM 138.8 mmol/L (137-145); TOTAL PROTEIN 6.5 g/dL (6.3-8.2)
[2019-03-21] MEDS: CLINDAMYCIN 600 MG/D5W RTU 600 MG/50 ML RTUPB IV SCH (21:49)
[2019-03-21] MEDS ORDERED: ACETAMINOPHEN 325 MG TABLET PO PRN (23:23)
[2019-03-21] MEDS ORDERED: TRAMADOL HCL 50 MG TABLET PO PRN (23:23)
--- NOTE | 2019-03-21 23:29 | RADIOLOGY REPORT (SQ) ---
CLINICAL HISTORY: cough COMPARISON: None. TECHNIQUE: XR CHEST 1 VIEW 03/21/2019 12:00 AM CDT FINDINGS: The heart is enlarged. Lungs are clear without consolidation, atelectasis, mass or edema. There is no pleural effusion. There is no pneumothorax. There are no acute osseous findings. IMPRESSION: No definite pneumonia.
[2019-03-22] MEDS: CLINDAMYCIN 600 MG/D5W RTU 600 MG/50 ML RTUPB IV SCH ×3 (05:08→21:56)
[2019-03-22] MEDS ORDERED: TRAMADOL HCL 50 MG TABLET PO PRN (08:42)
[2019-03-22] MEDS ORDERED: (PENDING PHARMACY ID) (Sertraline Hcl [Zoloft] 25 MG) PO SCH (08:45)
[2019-03-22] MEDS: METOPROLOL SUCCINATE 50 MG TAB.SR.24H PO SCH (09:49)
[2019-03-22] MEDS: NITROFURANTOIN MONOHYD/M-CRYST 100 MG CAPSULE PO SCH (09:49)
[2019-03-22] MEDS: MULTIVITAMIN TABLET PO SCH (09:49)
[2019-03-22] MEDS: APIXABAN 2.5 MG TABLET PO SCH ×2 (09:49→17:09)
[2019-03-22] MEDS: SERTRALINE HCL 50 MG TABLET PO SCH (09:50)
[2019-03-22] MEDS: LOSARTAN POTASSIUM 50 MG TABLET PO SCH (09:50)
[2019-03-22] MEDS ORDERED: (PENDING PHARMACY ID) (Nitrofurantoin Macrocrystal [Macrodantin] 100 MG) PO SCH (10:00)
[2019-03-22] MEDS ORDERED: (PENDING PHARMACY ID) (Telmisartan [Micardis 80 Mg Tablet] 80 MG) PO SCH (10:00)
--- NOTE | 2019-03-22 14:23 | PDOC H&P ---
History of Present Illness Admission Date/PCP: 03/21/19 18:40 NIKKI MCCULLOUGH MD History of Present Illness: GIUSEPPE RINCON is a 83 year old female she has multiple comorbid conditions, she came to the office for evaluation of swelling, redness of the right leg, there was also weeping of the leg, this was consistent with cellulitis, it was felt that patient needed to be admitted to the hospital for further management. She has a history of chronic atrial fibrillation, morbid obesity, recently with frequent fall. She also has a history of chronic UTI. She denies any confusion, there is no headache, there is shortness of breath. Past Medical History Cardiac Medical History: Reports: Atrial Fibrillation, Hyperlipidema, Hypertension Pulmonary Medical History: Reports: Asthma, Chronic Obstructive Pulmonary Diseas e (COPD), Sleep Apnea - doesn't use cpap Endocrine Medical History: Reports: Hypothyroidism, Obesity GI Medical History: Reports: Gastroesophageal Reflux Disease, Hiatal Hernia Musculoskeltal Medical History: Reports: Arthritis Psychiatric Medical History: Reports: Depression Past Surgical History Past Surgical History: Reports: Appendectomy, Orthopedic Surgery - bilat knee, Tonsillectomy, Tubal Ligation Social History Smoking Status: Never Smoker Frequency of Alcohol Use: None Hx Recreational Drug Use: No Hx Prescription Drug Abuse: No Family History Family History: Reviewed & Not Pertinent Parental Family History Reviewed: Yes Children Family History Reviewed: Yes Sibling(s) Family History Reviewed.: Yes Medication/Allergy Home Medications: Alprazolam [Xanax] 1 mg PO QHS 12/03/17 Apixaban [Eliquis 2.5 mg Tablet] 2.5 mg PO BID 12/03/17 Atorvastatin Calcium [Lipitor 40 mg Tablet] 40 mg PO QHS 12/03/17 Levothyroxine Sodium [Synthroid] 100 mcg PO Q6AM 12/03/17 Losartan Potassium [Cozaar 50 mg Tablet] 50 mg PO DAILY 12/03/17 Sertraline HCl [Zoloft] 25 mg PO QAM 12/03/17 Tramadol HCl [Ultram 50 mg Tablet] 50 mg PO Q6HP PRN 12/03/17 Metoprolol Succinate [Toprol Xl 50 mg Tab.sr] 200 mg PO DAILY 03/22/19 Multivitamin [Tab-A-[place] (Multiple Vitamin) Tablet] 1 tab PO DAILY 03/22/19 Nitrofurantoin Macrocrystal [Macrodantin] 100 mg PO DAILY 03/22/19 Omeprazole 40 mg PO DAILY 03/22/19 Telmisartan [Micardis 80 mg Tablet] 80 mg PO DAILY 03/22/19 Allergies/Adverse Reactions: meperidine HCl [From Demerol] Allergy (Severe, Verified 08/25/17 23:24) Review of Systems Constitutional: PRESENT: fever(s). ABSENT: chills, headache(s), weight gain, weight loss Eyes: ABSENT: visual disturbances Ears: ABSENT: hearing changes Cardiovascular: ABSENT: chest pain, dyspnea on exertion, edema, orthropnea, palpitations Respiratory: ABSENT: cough, hemoptysis Gastrointestinal: ABSENT: abdominal pain, constipation, diarrhea, hematemesis, hematochezia, nausea, vomiting Genitourinary: ABSENT: dysuria, hematuria Musculoskeletal: ABSENT: joint swelling Integumentary: ABSENT: rash, wounds Neurological: ABSENT: abnormal gait, abnormal speech, confusion, dizziness, focal weakness, syncope Psychiatric: ABSENT: anxiety, depression, homidical ideation, suicidal ideation Endocrine: ABSENT: cold intolerance, heat intolerance, menstrual abnormalities, polydipsia, polyuria Hematologic/Lymphatic: ABSENT: easy bleeding, easy bruising, lymphadenopathy Physical Exam Vital Signs: Temp Pulse Resp BP Pulse Ox 97.6 F 74 20 141/84 H 90 L 03/22/19 03:48 03/22/19 07:00 03/22/19 03:48 03/22/19 03:48 03/22/19 03:48 Intake & Output 03/21/19 03/22/19 03/23/19 06:59 06:59 06:59 Intake Total 100 Output Total 325 Balance -225 Weight 123.6 kg General appearance: PRESENT: no acute distress, well-developed, well-nourished Head exam: PRESENT: atraumatic, normocephalic Eye exam: PRESENT: conjunctiva pink, EOMI, PERRLA Neck exam: PRESENT: full ROM Respiratory exam: PRESENT: clear to auscultation mary Cardiovascular exam: PRESENT: RRR, +S1, +S2 Vascular exam: PRESENT: normal capillary refill GI/Abdominal exam: PRESENT: normal bowel sounds, soft Rectal exam: PRESENT: deferred Extremities exam: PRESENT: other - There is erythema, swelling of the right leg with weeping Neurological exam: PRESENT: alert, awake, oriented to person, oriented to place, oriented to time, oriented to situation, CN II-XII grossly intact Psychiatric exam: PRESENT: appropriate affect, normal mood Skin exam: PRESENT: dry, intact, warm Results Laboratory Results: 03/21/19 20:43 03/21/19 20:43 03/21/19 03/21/19 20:43 20:43 WBC 5.2 RBC 3.97 Hgb 11.7 L Hct 36.5 MCV 92 MCH 29.4 MCHC 32.0 RDW 14.9 H Plt Count 217 Seg Neutrophils % 58.9 Lymphocytes % 22.1 Monocytes % 13.4 H Eosinophils % 4.5 Basophils % 1.1 Absolute Neutrophils 3.1 Absolute Lymphocytes 1.2 Absolute Monocytes 0.7 Absolute Eosinophils 0.2 Absolute Basophils 0.1 Sodium 138.8 Potassium 4.8 Chloride 97 L Carbon Dioxide 36 H Anion Gap 6 BUN 24 H Creatinine 0.70 Est GFR ( Amer) > 60 Est GFR (Non-Af Amer) > 60 Glucose 91 Calcium 9.0 Total Bilirubin 0.5 AST 21 ALT 19 Alkaline Phosphatase 89 Total Protein 6.5 Albumin 3.2 L Impressions: Chest X-Ray 03/21/19 00:00 IMPRESSION: No definite pneumonia. Assessment & Plan - Diagnosis (1) Cellulitis of right leg Is this a current diagnosis for this admission?: Yes Plan: Start IV clindamycin (2) Chronic atrial fibrillation Is this a current diagnosis for this admission?: Yes (3) Morbid (severe) obesity due to excess calories Is this a current diagnosis for this admission?: Yes
--- NOTE | 2019-03-22 14:24 | PDOC PROGRESS REPORT ---
Subjective Progress Note for:: 03/22/19 Subjective:: Patient seen by the bedside, she was admitted yesterday for the management of cellulitis Reason For Visit: SEVERE CELLULITIS RIGHT LEG, MULTIPLE COMORBIDITY Physical Exam Vital Signs: Temp Pulse Resp BP Pulse Ox 97.6 F 74 20 141/84 H 90 L 03/22/19 03:48 03/22/19 07:00 03/22/19 03:48 03/22/19 03:48 03/22/19 03:48 Intake & Output 03/21/19 03/22/19 03/23/19 06:59 06:59 06:59 Intake Total 100 Output Total 325 Balance -225 Weight 123.6 kg General appearance: PRESENT: no acute distress Eye exam: PRESENT: PERRLA Respiratory exam: PRESENT: clear to auscultation mary Cardiovascular exam: PRESENT: +S1, +S2 GI/Abdominal exam: PRESENT: soft Extremities exam: PRESENT: pedal edema, other - Redness of the right lower extremity Neurological exam: PRESENT: alert, CN II-XII grossly intact Results Laboratory Results: 03/21/19 20:43 03/21/19 20:43 03/21/19 03/21/19 20:43 20:43 WBC 5.2 RBC 3.97 Hgb 11.7 L Hct 36.5 MCV 92 MCH 29.4 MCHC 32.0 RDW 14.9 H Plt Count 217 Seg Neutrophils % 58.9 Lymphocytes % 22.1 Monocytes % 13.4 H Eosinophils % 4.5 Basophils % 1.1 Absolute Neutrophils 3.1 Absolute Lymphocytes 1.2 Absolute Monocytes 0.7 Absolute Eosinophils 0.2 Absolute Basophils 0.1 Sodium 138.8 Potassium 4.8 Chloride 97 L Carbon Dioxide 36 H Anion Gap 6 BUN 24 H Creatinine 0.70 Est GFR ( Amer) > 60 Est GFR (Non-Af Amer) > 60 Glucose 91 Calcium 9.0 Total Bilirubin 0.5 AST 21 ALT 19 Alkaline Phosphatase 89 Total Protein 6.5 Albumin 3.2 L Impressions: Chest X-Ray 03/21/19 00:00 IMPRESSION: No definite pneumonia. Assessment & Plan - Diagnosis (1) Cellulitis of right leg Is this a current diagnosis for this admission?: Yes Plan: continue IV clindamycin (2) Chronic atrial fibrillation Is this a current diagnosis for this admission?: Yes (3) Morbid (severe) obesity due to excess calories Is this a current diagnosis for this admission?: Yes
[2019-03-22] MEDS: ATORVASTATIN CALCIUM 40 MG TABLET PO SCH (21:56)
[2019-03-22] MEDS: ALPRAZOLAM 0.5 MG TABLET PO SCH (21:56)
[2019-03-23] MEDS: CLINDAMYCIN 600 MG/D5W RTU 600 MG/50 ML RTUPB IV SCH ×3 (05:07→21:37)
[2019-03-23] MEDS: LEVOTHYROXINE SODIUM 0.1 MG TABLET PO SCH (05:07)
[2019-03-23] MEDS: MULTIVITAMIN TABLET PO SCH (10:17)
[2019-03-23] MEDS: PANTOPRAZOLE SODIUM 40 MG TABLET.DR PO SCH (10:17)
[2019-03-23] MEDS: APIXABAN 2.5 MG TABLET PO SCH ×2 (10:18→18:05)
[2019-03-23] MEDS: LOSARTAN POTASSIUM 50 MG TABLET PO SCH (10:18)
[2019-03-23] MEDS: NITROFURANTOIN MONOHYD/M-CRYST 100 MG CAPSULE PO SCH (10:18)
[2019-03-23] MEDS: METOPROLOL SUCCINATE 50 MG TAB.SR.24H PO SCH (10:18)
[2019-03-23] MEDS: SERTRALINE HCL 50 MG TABLET PO SCH (10:18)
--- NOTE | 2019-03-23 19:40 | PDOC PROGRESS REPORT ---
Subjective Progress Note for:: 03/23/19 Subjective:: Patient seen by the bedside, she continues to improve on IV clindamycin Reason For Visit: SEVERE CELLULITIS RIGHT LEG, MULTIPLE COMORBIDITY Physical Exam Vital Signs: Temp Pulse Resp BP Pulse Ox 97.1 F 58 L 18 140/72 H 97 03/23/19 17:01 03/23/19 17:01 03/23/19 17:01 03/23/19 17:01 03/23/19 17:01 Intake & Output 03/22/19 03/23/19 03/24/19 06:59 06:59 06:59 Intake Total 100 1620 500 Output Total 325 1950 Balance -225 -330 500 Weight 123.6 kg 121.9 kg General appearance: PRESENT: no acute distress Eye exam: PRESENT: PERRLA Respiratory exam: PRESENT: clear to auscultation mary Cardiovascular exam: PRESENT: +S1, +S2 GI/Abdominal exam: PRESENT: soft Neurological exam: PRESENT: alert, CN II-XII grossly intact Results Laboratory Results: 03/21/19 20:43 03/21/19 20:43 Impressions: Chest X-Ray 03/21/19 00:00 IMPRESSION: No definite pneumonia. Assessment & Plan - Diagnosis (1) Cellulitis of right leg Is this a current diagnosis for this admission?: Yes (2) Chronic atrial fibrillation Is this a current diagnosis for this admission?: Yes (3) Morbid (severe) obesity due to excess calories Is this a current diagnosis for this admission?: Yes
[2019-03-23] MEDS: ATORVASTATIN CALCIUM 40 MG TABLET PO SCH (21:38)
[2019-03-23] MEDS: ALPRAZOLAM 0.5 MG TABLET PO SCH (21:38)
[2019-03-24] MEDS: CLINDAMYCIN 600 MG/D5W RTU 600 MG/50 ML RTUPB IV SCH ×3 (05:48→21:25)
[2019-03-24] MEDS: LEVOTHYROXINE SODIUM 0.1 MG TABLET PO SCH (05:48)
[2019-03-24] MEDS: SERTRALINE HCL 50 MG TABLET PO SCH (09:23)
[2019-03-24] MEDS: PANTOPRAZOLE SODIUM 40 MG TABLET.DR PO SCH (09:24)
[2019-03-24] MEDS: METOPROLOL SUCCINATE 50 MG TAB.SR.24H PO SCH (12:31)
[2019-03-24] MEDS: NITROFURANTOIN MONOHYD/M-CRYST 100 MG CAPSULE PO SCH (12:31)
[2019-03-24] MEDS: LOSARTAN POTASSIUM 50 MG TABLET PO SCH (12:31)
[2019-03-24] MEDS: APIXABAN 2.5 MG TABLET PO SCH ×2 (12:31→18:43)
[2019-03-24] MEDS: MULTIVITAMIN TABLET PO SCH (12:32)
--- NOTE | 2019-03-24 18:04 | PDOC PROGRESS REPORT ---
Subjective Progress Note for:: 03/24/19 Subjective:: Patient seen by the bedside, she has no new complaints Reason For Visit: SEVERE CELLULITIS RIGHT LEG, MULTIPLE COMORBIDITY Physical Exam Vital Signs: Temp Pulse Resp BP Pulse Ox 98.3 F 66 19 156/72 H 95 03/24/19 11:10 03/24/19 11:10 03/24/19 11:10 03/24/19 11:10 03/24/19 11:10 Intake & Output 03/23/19 03/24/19 03/25/19 06:59 06:59 06:59 Intake Total 1620 720 355 Output Total 1950 1350 700 Balance -330 -014 -345 Weight 121.9 kg 121.5 kg General appearance: PRESENT: no acute distress, well-developed, well-nourished Head exam: PRESENT: atraumatic, normocephalic Eye exam: PRESENT: conjunctiva pink, EOMI, PERRLA. ABSENT: scleral icterus Ear exam: PRESENT: normal external ear exam Mouth exam: PRESENT: moist, tongue midline Neck exam: PRESENT: full ROM Cardiovascular exam: PRESENT: RRR, +S1, +S2 Pulses: PRESENT: normal dorsalis pedis pul, +2 pedal pulses bilateral Vascular exam: PRESENT: normal capillary refill GI/Abdominal exam: PRESENT: normal bowel sounds, soft Rectal exam: PRESENT: deferred Neurological exam: PRESENT: alert, awake, oriented to person, oriented to place, oriented to time, oriented to situation, CN II-XII grossly intact Psychiatric exam: PRESENT: appropriate affect, normal mood Skin exam: PRESENT: dry, intact, warm Results Laboratory Results: 03/21/19 20:43 03/21/19 20:43 Impressions: Chest X-Ray 03/21/19 00:00 IMPRESSION: No definite pneumonia. Assessment & Plan - Diagnosis (1) Cellulitis of right leg Is this a current diagnosis for this admission?: Yes (2) Chronic atrial fibrillation Is this a current diagnosis for this admission?: Yes (3) Morbid (severe) obesity due to excess calories Is this a current diagnosis for this admission?: Yes
[2019-03-24] MEDS: ATORVASTATIN CALCIUM 40 MG TABLET PO SCH (21:25)
[2019-03-24] MEDS: ALPRAZOLAM 0.5 MG TABLET PO SCH (21:25)
[2019-03-25] MEDS: LEVOTHYROXINE SODIUM 0.1 MG TABLET PO SCH (05:30)
[2019-03-25] MEDS: CLINDAMYCIN 600 MG/D5W RTU 600 MG/50 ML RTUPB IV SCH (05:30)
[2019-03-25] MEDS: NITROFURANTOIN MONOHYD/M-CRYST 100 MG CAPSULE PO SCH (09:56)
[2019-03-25] MEDS: METOPROLOL SUCCINATE 50 MG TAB.SR.24H PO SCH (09:56)
[2019-03-25] MEDS: SERTRALINE HCL 50 MG TABLET PO SCH (09:56)
[2019-03-25] MEDS: PANTOPRAZOLE SODIUM 40 MG TABLET.DR PO SCH (09:57)
[2019-03-25] MEDS: MULTIVITAMIN TABLET PO SCH (09:57)
[2019-03-25] MEDS: LOSARTAN POTASSIUM 50 MG TABLET PO SCH (09:57)
[2019-03-25] MEDS: APIXABAN 2.5 MG TABLET PO SCH (09:57)
--- NOTE | 2019-03-25 11:08 | PDOC TRANSFER SUMMARY ---
General - Admit/Disc Date/PCP Admission Date/Primary Care Provider: 03/21/19 18:40 NIKKI MCCULLOUGH MD Discharge Date: 03/25/19 - Discharge Diagnosis (1) Cellulitis of right leg Is this a current diagnosis for this admission?: Yes (2) Chronic atrial fibrillation Is this a current diagnosis for this admission?: Yes (3) Morbid (severe) obesity due to excess calories Is this a current diagnosis for this admission?: Yes (4) Chronic anxiety Is this a current diagnosis for this admission?: Yes (5) Recurrent urinary tract infection Is this a current diagnosis for this admission?: Yes - Additional Information Prescriptions: Alprazolam [Xanax] 1 mg PO QHS #30 tablet Tramadol HCl [Ultram 50 mg Tablet] 50 mg PO Q6HP PRN #120 tablet PRN Reason: For Pain Home Medications: Apixaban [Eliquis 2.5 mg Tablet] 2.5 mg PO BID 12/03/17 Atorvastatin Calcium [Lipitor 40 mg Tablet] 40 mg PO QHS 12/03/17 Levothyroxine Sodium [Synthroid] 100 mcg PO Q6AM 12/03/17 Sertraline HCl [Zoloft] 25 mg PO QAM 12/03/17 Metoprolol Succinate [Toprol Xl 50 mg Tab.sr] 200 mg PO DAILY 03/22/19 Multivitamin [Tab-A-[place] (Multiple Vitamin) Tablet] 1 tab PO DAILY 03/22/19 Nitrofurantoin Macrocrystal [Macrodantin] 100 mg PO DAILY 03/22/19 Omeprazole 40 mg PO DAILY 03/22/19 Telmisartan [Micardis 80 mg Tablet] 80 mg PO DAILY 03/22/19 Acetaminophen [Tylenol 325 mg Tablet] 650 mg PO Q6HP PRN tablet 03/25/19 Alprazolam [Xanax] 1 mg PO QHS #30 tablet 03/25/19 Tramadol HCl [Ultram 50 mg Tablet] 50 mg PO Q6HP PRN #120 tablet 03/25/19 History of Present Illness Admission Date/PCP: 03/21/19 18:40 NIKKI MCCULLOUGH MD History of Present Illness: GIUSEPPE RINCON is a 83 year old female she has multiple comorbid conditions, she came to the office for evaluation of swelling, redness of the right leg, there was also weeping of the leg, this was consistent with cellulitis, it was felt that patient needed to be admitted to the hospital for further management. She has a history of chronic atrial fibrillation, morbid obesity, recently with frequent fall. She also has a history of chronic UTI. She denies any confusion, there is no headache, there is shortness of breath. Hospital Course Hospital Course: Patient was admitted for the management of cellulitis of the right lower extremities, she was treated with IV clindamycin, she has morbid obesity with chronic venous hypertension of the lower extremities she has multiple comorbid conditions including chronic atrial fibrillation morbid obesity she has recurrent urinary tract infection chronically on Macrobid prophylactically for UTI this has been very successful Physical Exam Vital Signs: Temp Pulse Resp BP Pulse Ox 98.0 F 71 18 153/87 H 97 03/25/19 08:24 03/25/19 08:24 03/25/19 08:24 03/25/19 09:59 03/25/19 08:24 Intake & Output 03/24/19 03/25/19 03/26/19 06:59 06:59 06:59 Intake Total 770 1185 Output Total 1350 3375 Balance -580 -2190 Weight 121.5 kg 115.8 kg General appearance: PRESENT: no acute distress, well-developed, well-nourished Head exam: PRESENT: atraumatic, normocephalic Eye exam: PRESENT: conjunctiva pink, EOMI, PERRLA Ear exam: PRESENT: normal external ear exam Mouth exam: PRESENT: moist, tongue midline Respiratory exam: PRESENT: clear to auscultation mary Cardiovascular exam: PRESENT: RRR, +S1, +S2 Pulses: PRESENT: normal dorsalis pedis pul Vascular exam: PRESENT: normal capillary refill GI/Abdominal exam: PRESENT: normal bowel sounds, soft Rectal exam: PRESENT: deferred Extremities exam: PRESENT: full ROM Neurological exam: PRESENT: alert, CN II-XII grossly intact Psychiatric exam: PRESENT: appropriate affect, normal mood Skin exam: PRESENT: dry, intact, warm Results Laboratory Results: 03/21/19 20:43 03/21/19 20:43 Impressions: Chest X-Ray 03/21/19 00:00 IMPRESSION: No definite pneumonia. Qualifiers - * PATIENT BEING DISCHARGED WITH ANY OF THE FOLLOWING DIAGNOSIS: No Acute Heart Failure Is this a Heart Failure Patient?: No
[2019-03-25 12:21] VITALS: BP 151/92
== END 2019-03-25 13:43 | DRG 603 ==
LOC: 3W 18:40
PROVIDERS: ADMIT Internal Medicine; ATTEND Internal Medicine
DX: L03.115 Cellulitis of right lower limb (principal); I48.2 Chronic atrial fibrillation; E66.01 Morbid (severe) obesity due to excess calories; E78.5 Hyperlipidemia, unspecified; I10 Essential (primary) hypertension; J44.9 Chronic obstructive pulmonary disease, unspecified; I87.309 Chronic venous hypertension (idiopathic) without complications of unspecified lower extremity; G47.30 Sleep apnea, unspecified; M19.90 Unspecified osteoarthritis, unspecified site; F41.9 Anxiety disorder, unspecified; F32.9 Major depressive disorder, single episode, unspecified; Z90.49 Acquired absence of other specified parts of digestive tract; Z87.440 Personal history of urinary (tract) infections; Z79.899 Other long term (current) drug therapy; Z91.81 History of falling; Z79.2 Long term (current) use of antibiotics
CPT/HCPCS: 36415; 71045; 80048; 80076; 85025; 87040; J3490; J8499

== ENCOUNTER 2019-05-24 21:00 | Emergency (ER) | payer MEDICARE ==
[2019-05-25 00:37] LABS: ABSOLUTE EOSINOPHILS # (AUTO) 0.2 10^3/uL (0.0-0.6); ABSOLUTE MONOCYTES (AUTO) 0.5 10^3/uL (0.1-1.4); BASOPHILS % (AUTO) 0.9 % (0-2); EOSINOPHILS % (AUTO) 3.7 % (0-6); HEMATOCRIT 33.3 % (36.0-47.0); HEMOGLOBIN 10.9 g/dL (12.0-15.5); LYMPHOCYTES % (AUTO) 21.3 % (13-45); MEAN CORPUSCULAR HEMOGLOBIN 30.9 pg (27.0-33.4); MEAN CORPUSCULAR HGB CONC 32.7 g/dL (32.0-36.0); MEAN CORPUSCULAR VOLUME 94 fl (80-97); MONOCYTES % (AUTO) 11.5 % (3-13); PLATELET COUNT 222 10^3/uL (150-450); RED BLOOD COUNT 3.54 10^6/uL (3.72-5.28); RED CELL DISTRIBUTION WIDTH 16.1 % (11.5-14.0); SEGMENTED NEUTROPHILS % (AUTO) 62.6 % (42-78); TOTAL CELLS COUNTED % (AUTO) 100 %; WHITE BLOOD COUNT 4.7 10^3/uL (4.0-10.5)
[2019-05-25 00:46] LABS: BLOOD UREA NITROGEN 16 mg/dL (7-20); CALCIUM 8.7 mg/dL (8.4-10.2); CHLORIDE 96 mmol/L (98-107); GLUCOSE 91 mg/dL (75-110); POTASSIUM 4.3 mmol/L (3.6-5.0)
[2019-05-25 00:51] LABS: APPEARANCE,URINE SLIGHTLY-CLOUDY; BILIRUBIN,URINE SMALL (NEGATIVE); GLUCOSE, URINE NEGATIVE (NEGATIVE); KETONES,URINE NEGATIVE (NEGATIVE); LEUKOCYTE ESTERASE,URINE NEGATIVE (NEGATIVE); NITRITE,URINE NEGATIVE (NEGATIVE); PROTEIN,URINE 30 mg/dL (NEGATIVE)
[2019-05-25 00:52] LABS: CARBON DIOXIDE 39 mmol/L (22-30)
[2019-05-25 00:53] LABS: COLOR,URINE YELLOW
[2019-05-25 00:54] LABS: ANION GAP 4 (5-19)
--- NOTE | 2019-05-25 01:10 | ER Document Report ---
ED General - General Chief Complaint: Urinary Problem Stated Complaint: URINARY PROBLEMS Time Seen by Provider: 05/24/19 23:40 Primary Care Provider: NIKKI MCCULLOUGH MD [Primary Care Provider] - Follow up as needed Notes: Patient is a pleasant 83-year-old female is brought in by her . He says that she was acting a little bit confused earlier today. Patient herself says that she is not confused. She currently answers all questions appropriately. She was recent rehab for a prolonged period time because of a cellulitis or lower extremities. She is been home since . is concerned rossy lehman previously when she had similar symptoms she had a urinary tract infection. No fevers. No difficulty breathing. He said that her oxygen was low at home 82% and therefore the home health nurse came to evaluate the patient. Home health nurse spoke with Dr. Mccullough who told them to bring her to the ER. Patient says that she thinks her oxygen was probably low because she had taken her oxygen off to go to bathroom. She says when her helps her ambulate last times will take off her oxygen. She denies any chest pain. No abdominal pain. No other complaints at this time. TRAVEL OUTSIDE OF THE [place] IN LAST 30 DAYS: No - Related Data Allergies/Adverse Reactions: meperidine HCl [From Demerol] Allergy (Severe, Verified 08/25/17 23:24) Past Medical History - Social History Smoking Status: Unknown if Ever Smoked Frequency of alcohol use: None Drug Abuse: None Family History: Reviewed & Not Pertinent Patient has suicidal ideation: No Patient has homicidal ideation: No - Past Medical History Cardiac Medical History: Reports: Hx Atrial Fibrillation, Hx Hypercholesterolemia, Hx Hypertension Pulmonary Medical History: Reports: Hx Asthma, Hx COPD, Hx Sleep Apnea - doesn't use cpap Neurological Medical History: Denies: Hx Cerebrovascular Accident Endocrine Medical History: Reports: Hx Hypothyroidism Renal/ Medical History: Denies: Hx Peritoneal Dialysis GI Medical History: Reports: Hx Gastroesophageal Reflux Disease, Hx Hiatal Hernia. Denies: Hx Ulcer Musculoskeletal Medical History: Reports Hx Arthritis Psychiatric Medical History: Reports: Hx Depression Past Surgical History: Reports: Hx Appendectomy, Hx Orthopedic Surgery - bilat knee, Hx Tonsillectomy, Hx Tubal Ligation. Denies: Hx Open Heart Surgery - Immunizations Hx Diphtheria, Pertussis, Tetanus Vaccination: No Hx Pneumococcal Vaccination: 09/03/12 Review of Systems - Review of Systems Notes: My Normal Review Basic REVIEW OF SYSTEMS: CONSTITUTIONAL : Denies fever, chills, or sweats. Denies recent illness. EENT: Denies eye, ear, throat, or mouth pain or symptoms. Denies nasal or sinus congestion. CARDIOVASCULAR: Denies chest pain. RESPIRATORY: Denies cough, cold, or chest congestion. Denies shortness of breath, difficulty breathing, or wheezing. GASTROINTESTINAL: Denies abdominal pain. Denies nausea, vomiting, or diarrhea. GENITOURINARY: Denies difficulty urinating, painful urination, burning, frequency, or blood in urine. MUSCULOSKELETAL: Denies neck or back pain or joint pain or swelling. SKIN: Denies rash or skin lesions. NEUROLOGICAL: some intermittent confusion. Denies headache. Denies weakness or paralysis or loss of use of either side. Denies problems with gait or speech. Denies sensory or motor loss. ALL OTHER SYSTEMS REVIEWED AND NEGATIVE. Physical Exam - Vital signs Vitals: Temp Pulse BP Pulse Ox 98.3 F 82 154/105 H 94 05/24/19 21:12 05/24/19 21:12 05/24/19 21:12 05/24/19 21:12 - Notes Notes: General Appearance: Well nourished, alert, cooperative, no acute distress, no obvious discomfort. Well-appearing. Vitals: reviewed, See vital signs table. Head: no swelling or tenderness to the head Eyes: PERRL, EOMI, Conjuctiva clear Mouth: No decreasd moisture Lungs: No wheezing, No rales, No rhonci, No accessory muscle use, good air exchange bilaterally. Heart: Normal rate, Regular rythm, No murmur, no rub Abdomen: Normal BS, soft, No rigidity, No abdominal tenderness, No guarding, no rebound, no abdominal masses, no organomegaly Extremities: strength 5/5 in all extremities, good pulses in all extremities, no swelling or tenderness in the extremities, some darkening the skin on bilateral lower extremities consistent with chronic edema. No abnormal warmth or redness at this time. Skin: warm, dry, appropriate color, no rash Neuro: speech clear, oriented x 3, normal affect, responds appropriately to questions. Cranial nerves II through XII are intact. Distal sensation intact. Patient moves all extremities without difficulty exception of some chronic weakness in the lower extremities.. Course - Re-evaluation Re-evalutation: 05/25/19 02:51 Patient's laboratory evaluation was unremarkable. She does not have any evidence of urinary tract infection. Chest x-rays obtained was negative. On my evaluation and subsequent re-evaluations of her, her mental status has been appropriate and she is answering all my questions appropriately. I do not doubt that she has some transient altered mental status at home. This could be related to her coming off her oxygen to go to the bathroom and she is having some periods of hypoxemia when she comes off oxygen. Encouraged her to try to make sure that she keeps her oxygen on 1 being assisted to the bathroom. Encouraged her to return to ER immediately if she has fevers, worsening her symptoms, any pain, or she feels unwell in any way. Patient agrees with plan. Patient's son is at bedside when I explained the plan that he is agreeable with it as well. Patient will be discharged home. Dictation of this chart was performed using voice recognition software; therefore, there may be some unintended grammatical errors. - Vital Signs Vital signs: Temp Pulse Resp BP Pulse Ox 98.3 F 82 17 167/137 H 95 05/24/19 21:12 05/24/19 21:12 05/25/19 00:31 05/25/19 00:31 05/25/19 00:31 - Laboratory Result Diagrams: 05/25/19 00:10 05/25/19 00:10 Laboratory results interpreted by me: 05/25/19 05/25/19 05/25/19 00:10 00:10 00:30 RBC 3.54 L Hgb 10.9 L Hct 33.3 L RDW 16.1 H Chloride 96 L Carbon Dioxide 39 H Anion Gap 4 L Urine Protein 30 H Urine Bilirubin SMALL H Urine Urobilinogen 4.0 H Discharge - Discharge Clinical Impression: No problem, feared complaint unfounded Mental status change Qualifiers: Altered mental status type: transient alteration of awareness Qualified Code(s): R40.4 - Transient alteration of awareness Condition: Good Disposition: HOME, SELF-CARE Additional Instructions: Your work-up did not show any signs of infection. Your labs are unremarkable. There is no evidence of urinary tract infection. We obtained a chest x-ray to see if there is any evidence of pneumonia. This is negative. Please attempt to keep your oxygen on when being ambulated to the bathroom if possible. The episodic periods of hypoxia from coming off your oxygen could be leading to some transient altered mental status. Please return to ER if you have worsening recurrent altered mental status, fevers, any pain, or if you have any further concerns. Referrals: NIKKI MCCULLOUGH MD [Primary Care Provider] - 05/26/19
--- NOTE | 2019-05-25 02:19 | RADIOLOGY REPORT (SQ) ---
CLINICAL HISTORY: confusion COMPARISON: March 21, 2019. TECHNIQUE: XR CHEST 2 VIEWS 05/25/2019 12:56 AM CDT FINDINGS: Cardiac silhouette is normal in size. Lungs are clear without consolidation, atelectasis, mass or edema. There is no pleural effusion. There is no pneumothorax. There are no acute osseous findings. IMPRESSION: Clear lungs.
[2019-05-25 03:11] VITALS: BP 141/85
== END 2019-05-25 03:11 | disposition home or self-care (01) ==
LOC: ER 21:00
DX: R40.4 Transient alteration of awareness (principal); R41.0 Disorientation, unspecified; I10 Essential (primary) hypertension; J44.9 Chronic obstructive pulmonary disease, unspecified; Z99.81 Dependence on supplemental oxygen; Z88.5 Allergy status to narcotic agent; Z87.440 Personal history of urinary (tract) infections
CPT/HCPCS: 36415; 51701; 71046; 80048; 81001; 85025; 99283

== ENCOUNTER → 2019-06-07 | Outpatient (CLI) | payer MEDICARE, OTHER ==
--- NOTE | 2019-06-07 13:46 | RADIOLOGY REPORT (SQ) ---
EXAM DESCRIPTION: BARIUM SWALLOW ESOPHAGUS COMPLETED DATE/TIME: 06/07/2019 10:27 am REASON FOR STUDY: R10.13 EPIGASTRIC PAIN R10.13 EPIGASTRIC PAIN COMPARISON: Barium swallow 01/25/2017 TECHNIQUE: Under fluoroscopic guidance, patient ingested thin barium. Fluoroscopic spot images and r outine radiographic images acquired and stored on PACS. 12 MM BARIUM TABLET GIVEN: Yes. DELAY IN PASSAGE OF THE TABLET AT THE GE JUNCTION. LIMITATIONS: None. FLUOROSCOPY TIME: 2 minutes 25 seconds of fluoroscopy was used. 14 images saved to PACS. FINDINGS: NEUROMUSCULAR COORDINATION OF SWALLOW: Normal. No aspiration. ESOPHAGEAL MOTILITY: Slow primary peristalsis with tertiary contractions seen the distal half esophag us. ESOPHAGEAL MUCOSA: Curvilinear defect along the anterior proximal esophagus consistent with esophagea l web. This is nonobstructive. No ulcerations or masses seen. Narrowing in the distal esophagus ju st proximal to the GE junction. GASTRO-ESOPHAGEAL JUNCTION: Small sliding hiatal hernia. No reflux identified. Narrowing at the GE junction causing delay in passage of the 12 mm barium tablet throughout the study. NON-GI TRACT STRUCTURES: No significant finding. OTHER: No other significant finding. IMPRESSION: 1. PRESBYESOPHAGUS 2. DISTAL ESOPHAGEAL STRICTURE, JUST PROXIMAL TO THE GE JUNCTION, CAUSING DELAY IN PASSAGE OF A 12 M M BARIUM TABLET. 3. SMALL HIATAL HERNIA. COMMENT: Recommend endoscopy for further evaluation of the distal esophageal stricture. Quality ID 145: Final reports for procedures using fluoroscopy that document radiation exposure kapil heather, or exposure time and number of fluorographic images (if radiation exposure indices are not avail able) TECHNICAL DOCUMENTATION: JOB ID: [id number] [employer]- All Rights Reserved Reading location - IP/workstation name: [email or web address] [id number]
== END ==
LOC: RAD 09:35
PROVIDERS: ATTEND Internal Medicine
DX: K22.8 Other specified diseases of esophagus (principal); K22.2 Esophageal obstruction; K44.9 Diaphragmatic hernia without obstruction or gangrene
CPT/HCPCS: 74220

== ENCOUNTER 2019-09-05 15:47 | Day surgery (SDC) | payer MEDICARE, OTHER ==
[~2019-09-05 15:47] MED LIST: DIPHENHYDRAMINE HCL 50 MG/ML VIAL ONE; EPINEPHRINE INJ 1 MG/10 ML DISP.SYRIN ONE; FENTANYL CITRATE INJ/PF 100 MCG/2 ML AMPUL ONE; FLUMAZENIL INJ 0.5 MG/5 ML VIAL ONE; GLUCAGON,HUMAN RECOMB 1 MG INJ ONE; MIDAZOLAM 2 MG/2 ML INJ ONE; NALOXONE HCL INJ/PF 0.4 MG/1 ML SDV ONE; ONDANSETRON HCL INJ/PF 4 MG/2 ML SDV ONE
--- NOTE | 2019-09-05 17:34 | Operative Report ---
Operative Report DATE OF SURGERY: 09/05/19 Operative Report: Pre-op diagnosis: Dysphagia with esophageal ring on barium swallow Post-op diagnosis: 1. Distal esophageal ring with minimal stenosis 2. Mild antral gastritis Surgery: Esophagogastroduodenoscopy with biopsy and balloon dilation Medications: Versed 2mg Fentanyl 50mcg IV push Tissue removed: Antral and gastric body biopsy for pathology Procedure: After informed consent obtained from patient, the throat was sprayed with Hurricane and conscious sedation was achieved. The upper endoscope was inserted into the esophagus under direct vision and advanced into the stomach. The duodenum was entered and examined to the second part. Endoscope was then slowly pulled out of the patient as the mucosa was examined into details. Patient tolerated procedure well. Findings Esophagus: A ring was noted at the distal esophagus about 1 cm above the GE ju nction with minimal stenosis. There was no break in the ring with a 19 mm balloon dilator. Antrum: Mild erythema Body: Normal Fundus: Normal Duodenum first part: Normal Duodenum second part: Normal Plan: Await pathology OPERATION: .
[2019-09-05 18:38] VITALS: BP 175/99
== END 2019-09-05 18:30 | disposition home or self-care (01) ==
LOC: END 15:47
PROVIDERS: ATTEND Internal Medicine Gastroenterology
DX: K22.2 Esophageal obstruction (principal); R93.3 Abnormal findings on diagnostic imaging of other parts of digestive tract; K44.9 Diaphragmatic hernia without obstruction or gangrene; K29.50 Unspecified chronic gastritis without bleeding; Z79.01 Long term (current) use of anticoagulants; Z79.899 Other long term (current) drug therapy; E03.9 Hypothyroidism, unspecified; I10 Essential (primary) hypertension; E78.00 Pure hypercholesterolemia, unspecified; I48.91 Unspecified atrial fibrillation
CPT/HCPCS: 43239; 43249; 88305 ×2; C1726; J2250; J3010; J0171; J1200; J1610; J2310; J2405; J3490

== ENCOUNTER 2020-03-21 02:50 | Inpatient (IN) | payer MEDICARE, OTHER ==
--- NOTE | 2020-03-21 03:15 | ER Document Report ---
ED General - General Chief Complaint: Unresponsive Stated Complaint: UNRESPONSIVE Primary Care Provider: NIKKI MCCULLOUGH MD [Primary Care Provider] - Follow up as needed Mode of Arrival: Medic - Bloody bloody phlegm Information source: Emergency Med Personnel - 70 Notes: 84-year-old female arrives by EMS status post intubation at 23 at the lips 7 tube. Family called EMS and Lulu and [facility] arrived to find the patient on the floor. She was found by roommate nonresponsive. Patient was just placed on a dementia medicine Namzaric which is a combination of amantadine and donezepil. Patient has a history of CHF. She is also on levothyroxine Lipitor Macrobid Cozaar sertraline metoprolol and Prilosec. Patient was given 160 of ketamine 150 of rocuronium and 100 of fentanyl prior to arrival by EMS. She was also given epi x2 and arrives with blood pressure 114/93. Rufino called ahead by line to ER with systolic in 80s. Upon arrival patient received sleep lab technologist treatment and respirator. Patient received NG tube and Fleming and IVs and both antecubital areas per nursing staff. She was found to have +2 pitting edema bilateral legs to her knees. She had positive pulses in dorsalis pedis and femoral and heart rate was 71. Patient's pupils were pinpoint. P atient on Eliquis and CT scan was ordered upon arrival TRAVEL OUTSIDE OF THE [place] IN LAST 30 DAYS: No - HPI Onset: Just prior to arrival Onset/Duration: Sudden Quality of pain: No pain Severity: Severe Pain Level: Denies Associated symptoms: Other - unknown but family reported no unusual acute findings prior to today. Exacerbated by: Other Relieved by: Other Similar symptoms previously: Yes Recently seen / treated by doctor: Yes - Related Data Allergies/Adverse Reactions: meperidine HCl [From Demerol] Allergy (Severe, Verified 03/21/20 03:24) Past Medical History - General Information source: Emergency Med Personnel - Social History Smoking Status: Unknown if Ever Smoked Frequency of alcohol use: None Drug Abuse: None Lives with: Family Family History: Reviewed & Not Pertinent Patient has suicidal ideation: No - unknown Patient has homicidal ideation: No - unknown - Past Medical History Cardiac Medical History: Reports: Hx Atrial Fibrillation, Hx Hyperchol esterolemia, Hx Hypertension Denies: Hx Heart Attack Pulmonary Medical History: Reports: Hx Asthma, Hx COPD, Hx Sleep Apnea - doesn't use cpap Neurological Medical History: Denies: Hx Cerebrovascular Accident, Hx Seizures Endocrine Medical History: Reports: Hx Hypothyroidism Renal/ Medical History: Denies: Hx Peritoneal Dialysis GI Medical History: Reports: Hx Gastroesophageal Reflux Disease, Hx Hiatal Hernia. Denies: Hx Ulcer Musculoskeletal Medical History: Reports Hx Arthritis Psychiatric Medical History: Reports: Hx Depression Past Surgical History: Reports: Hx Appendectomy, Hx Orthopedic Surgery - bilat knee, Hx Tonsillectomy, Hx Tubal Ligation. Denies: Hx Hysterectomy, Hx Open Hea rt Surgery - Immunizations Hx Diphtheria, Pertussis, Tetanus Vaccination: No Hx Pneumococcal Vaccination: 09/03/12 Review of Systems - Review of Systems -: Yes ROS unobtainable due to patient's medical condition Physical Exam - Vital signs Vitals: Temp 95.6 F L 03/21/20 02:50 Interpretation: Hypoxic - General General appearance: Unresponsive - HEENT Head: Normocephalic, Atraumatic Eyes: Normal Pupils: PERRL Sinus: Normal Mouth/Lips: Normal Mucous membranes: Dry Pharynx: Normal Neck: Normal - Respiratory Respiratory status: Other - Intubated Breath sounds: Decreased air movement - Cardiovascular Rhythm: Regular Heart sounds: Normal auscultation Murmur: No - Abdominal Inspection: Obese Distension: Distended Bowel sounds: Hypoactive Organomegaly: No organomegaly - Rectal Tenderness: No - Genitourinary External exam: Normal - Back Back: Normal - Extremities General upper extremity: Normal inspection General lower extremity: Edema - Neurological Neuro grossly intact: No - Patient is intubated and under multiple medications [place] Coma Scale Eye Opening: None [place] Coma Scale Verbal: None [place] Coma Scale Motor: None [place] Coma Scale Total: 3 Speech: Other - Intubated Cranial nerves: Other - Intubated pinpoint pupils Course - Vital Signs Vital signs: Temp Pulse Resp BP Pulse Ox 95.6 F L 71 16 153/121 H 100 03/21/20 02:50 03/21/20 02:58 03/21/20 03:46 03/21/20 03:46 03/21/20 03:46 - Laboratory Result Diagrams: 03/21/20 03:05 03/21/20 03:05 Laboratory results interpreted by me: 03/21/20 03/21/2020 03:05 03:05 03:05 Hgb 11.9 L MCV 98 H MCHC 31.7 L RDW 16.4 H Carbonic Acid ABG pCO2 ABG pO2 ABG HCO3 ABG Total CO2 ABG O2 Saturation Carbon Dioxide 33 H BUN 31 H Est GFR ( Amer) 51 L Est GFR (MDRD) Non-Af 42 L Glucose 167 H Calcium 8.3 L AST 79 H NT-Pro-B Natriuret Pep 53730 H Total Protein 6.1 L Albumin 3.0 L Urine Protein Urine Blood Urine Bilirubin Urine Urobilinogen Ur Leukocyte Esterase 03/21/20 03/21/20 03:05 03:28 Hgb MCV MCHC RDW Carbonic Acid 1.49 H ABG pCO2 49.6 H ABG pO2 51.3 L ABG HCO3 28.9 H ABG Total CO2 30.5 H ABG O2 Saturation 85.4 L Carbon Dioxide BUN Est GFR ( Amer) Est GFR (MDRD) Non-Af Glucose Calcium AST NT-Pro-B Natriuret Pep Total Protein Albumin Urine Protein 100 H Urine Blood MODERATE H Urine Bilirubin SMALL H Urine Urobilinogen 2.0 H Ur Leukocyte Esterase MODERATE H - Diagnostic Test Radiology reviewed: Reports reviewed - EKG Interpretation by Me EKG shows normal: Sinus rhythm Rate: Normal Rhythm: A.Fib Critical Care Note - Critical Care Note Total time excluding time spent on procedures (mins): 90 Comments: pt begun on nitro drip after Jon Gonzales noted HTN 195/145 0400 Discharge - Discharge Clinical Impression: Hypertensive emergency, Chronic atrial fibrillation, Morbid (severe) obesity d ue to excess calories Mental status change Qualifiers: Altered mental status type: unspecified Qualified Code(s): R41.82 - Altered mental status, unspecified CHF (congestive heart failure) Qualifiers: Heart failure type: unspecified Heart failure chronicity: unspecified Qualified Code(s): I50.9 - Heart failure, unspecified Condition: Critical Disposition: ADMITTED INPATIENT Admitting Provider: NICOLASA King Unit Admitted: ICU Additional Instructions: Transfer to ICU Referrals: NIKKI MCCULLOUGH MD [Primary Care Provider] - Follow up as needed
[2020-03-21 03:31] LABS: ABSOLUTE LYMPHOCYTES (AUTO) 0.9 10^3/uL (0.5-4.7); ABSOLUTE MONOCYTES (AUTO) 0.5 10^3/uL (0.1-1.4); ABSOLUTE NEUT (AUTO) 3.5 10^3/uL (1.7-8.2); BASOPHILS % (AUTO) 0.5 % (0-2); EOSINOPHILS % (AUTO) 0.1 % (0-6); HEMATOCRIT 37.5 % (36.0-47.0); HEMOGLOBIN 11.9 g/dL (12.0-15.5); LYMPHOCYTES % (AUTO) 17.8 % (13-45); MEAN CORPUSCULAR HGB CONC 31.7 g/dL (32.0-36.0); MEAN CORPUSCULAR VOLUME 98 fl (80-97); MONOCYTES % (AUTO) 9.4 % (3-13); PLATELET COUNT 201 10^3/uL (150-450); RED BLOOD COUNT 3.85 10^6/uL (3.72-5.28); RED CELL DISTRIBUTION WIDTH 16.4 % (11.5-14.0); SEGMENTED NEUTROPHILS % (AUTO) 72.2 % (42-78); TOTAL CELLS COUNTED % (AUTO) 100 %; WHITE BLOOD COUNT 4.8 10^3/uL (4.0-10.5)
[2020-03-21 03:43] LABS: ARTERIAL BLOOD BASE EXCESS 3.1 mmol/L; ARTERIAL BLOOD FIO2 50%; ARTERIAL BLOOD H2CO3 1.49 mmol/L (1.05-1.35); ARTERIAL BLOOD HCO3 28.9 mmol/L (20-24); ARTERIAL BLOOD O2 SATURATION 85.4 % (94-98); ARTERIAL BLOOD PCO2 49.6 mmHg (35-45); ARTERIAL BLOOD PH 7.38 (7.35-7.45); ARTERIAL BLOOD PO2 51.3 mmHg (80-100); ARTERIAL BLOOD TOTAL CO2 30.5 mmol/L (21-25)
[2020-03-21] MEDS ORDERED: PIPERACILLIN/TAZOBACTAM 3.375 GM VIAL IV ONE (03:46)
[2020-03-21] MEDS ORDERED: VANCOMYCIN HCL INJ 1000 MG VIAL IV ONE (03:46)
[2020-03-21] MEDS ORDERED: BUMETANIDE INJ/PF 1 MG/4 ML SDV IV ONE (03:47)
[2020-03-21 03:48] LABS: ALKALINE PHOSPHATASE 104 U/L (38-126); ANION GAP 8 (5-19); ASPARTATE AMINO TRANSFERASE 79 U/L (14-36); BILIRUBIN,DIRECT 0.2 mg/dL (0.0-0.4); BILIRUBIN,TOTAL 0.8 mg/dL (0.2-1.3); BLOOD UREA NITROGEN 31 mg/dL (7-20); CALCIUM 8.3 mg/dL (8.4-10.2); CARBON DIOXIDE 33 mmol/L (22-30); CHLORIDE 98 mmol/L (98-107); CREATINE KINASE 39 U/L (30-135); GLUCOSE 167 mg/dL (75-110); POTASSIUM 4.5 mmol/L (3.6-5.0); TOTAL PROTEIN 6.1 g/dL (6.3-8.2)
[2020-03-21 04:08] LABS: APPEARANCE,URINE TURBID; BILIRUBIN,URINE SMALL (NEGATIVE); COLOR,URINE AMBER; GLUCOSE, URINE NEGATIVE (NEGATIVE); KETONES,URINE NEGATIVE (NEGATIVE); LEUKOCYTE ESTERASE,URINE MODERATE (NEGATIVE); NITRITE,URINE NEGATIVE (NEGATIVE); PROTEIN,URINE 100 mg/dL (NEGATIVE); URINE SPECIFIC GRAVITY 1.023
[2020-03-21] MEDS ORDERED: NITROGLYCERIN/D5W 50 MG/250 ML RTUINJ IV PRN (04:08)
[2020-03-21 04:14] LABS: TROPONIN I 0.417 ng/mL
[2020-03-21] MEDS ORDERED: FENTANYL CITRATE INJ/PF 100 MCG/2 ML AMPUL IV ONE (04:48)
--- NOTE | 2020-03-21 04:50 | RADIOLOGY REPORT (SQ) ---
CHEST 1 VIEW on 03/21/2020 at 3:30 AM CLINICAL INDICATION: ET tube and NG tube placement COMPARISON: 05/25/2019 FINDINGS: New ET tube tip is in the midthoracic trachea approximately 4.3 cm above the level of the ame. NG tube extends into the stomach. A few wires are noted projecting over the chest. There is left lower lung opacity consistent with atelectasis and/or pneumonia. Heart is borderline in size. Vascular calcification is noted in the aorta. A trace left pleural effusion may be present. IMPRESSION: Left lower lung opacity consistent with atelectasis and/or pneumonia.
--- NOTE | 2020-03-21 05:37 | CRITICAL CARE ADMISSION REPORT ---
HPI Date:: 03/21/20 Time:: 05:06 Reason for ICU Reason:: Acute Respiratory Failure HPI: Ms. Desirae Weinstein is an 84-year-old female with a past medical history of atrial fibrillation on Eliquis, CHF, CVA, hypothyroidism and hypertension presented to the ED via EMS with acute respiratory failure. Patient was found down by her roommate unresponsive, EMS was called and when they arrived they found the patient on the floor with agonal respirations and a weak pulse. She was intubated by the medics she was given 160 mg of ketamine 150 mg of rocuronium 100 mg of fentanyl and 2 rounds of epinephrine prior to the arrival to the ED her systolic blood pressure did drop to the 80s enroute. Upon arrival into the ED her blood pressure is 114/93 with a heart rate in the 70s. When I examined the patient in the ED she was off sedation she did start to arouse, her ETT was suction for a large amount of pink frothy sputum, chest x-ray shows pulmonary edema. Her blood pressure at that time was 220s over 100s nitroglycerin drip was started. She is bradycardic in the 40s to 50s EKG shows atrial fibrillation. Given her unresponsive state and hypertensive emergency as well as being on Eliquis she is sent for a CT of the head to rule out a head bleed. She will be admitted to the ICU for further management after the CT of the head is completed. History obtained from:: Chart - Diagnosis/Plan (1) CHF (congestive heart failure) Qualifiers: Heart failure type: unspecified Heart failure chronicity: unspecified Qualified Code(s): I50.9 - Heart failure, unspecified Is this a current diagnosis for this admission?: Yes Plan: Will diurese with Lasix 40 mg x 1 will order transthoracic echo BNP is 14,100 will repeat in the a.m. Troponins are 0.417 most likely from her CHF but will trend EKG showed atrial fibrillation (2) Hypertensive emergency Is this a current diagnosis for this admission?: Yes Plan: Continue nitroglycerin drip (3) Chronic atrial fibrillation Is this a current diagnosis for this admission?: Yes Plan: Currently in A. fib with a heart rate in the 40s -50s Is on metoprolol succinate 200 mg p.o. daily we will hold If CT of the head is negative can restart Eliquis 2.5 mg p.o. twice daily (4) Respiratory failure, acute Qualifiers: Respiratory failure complication: hypoxia Qualified Code(s): J96.01 - Acute respiratory failure with hypoxia Is this a current diagnosis for this admission?: Yes Plan: We will maintain mechanical ventilation Will diurese Chest x-ray daily ABG pH 7.38 PCO2 49.6 PO2 is 51.3 HCO3 28.9 O2 saturation 85.4 make appropriate adjustments to the ventilator (5) Hypothyroidism Is this a current diagnosis for this admission?: Yes Plan: We will start home dose levothyroxine 100 mg p.o. daily We will check thyroid studies given her new bradycardia Past Medical History Cardiac Medical History: Reports: Atrial Fibrillation, Hyperlipidema, Hypertension Denies: Myocardial Infarction Pulmonary Medical History: Reports: Asthma, Chronic Obstructive Pulmonary Disease (COPD), Sleep Apnea - doesn't use cpap Neurological Medical History: Denies: Seizures Endocrine Medical History: Reports: Hypothyroidism GI Medical History: Reports: Gastroesophageal Reflux Disease, Hiatal Hernia Musculoskeltal Medical History: Reports: Arthritis Psychiatric Medical History: Reports: Depression Hematology: Denies: Anemia Past Surgical History Past Surgical History: Reports: Appendectomy, Orthopedic Surgery - bilat knee, Tonsillectomy, Tubal Ligation Denies: Hysterectomy Social/Family History - Social History Lives with: Family Smoking Status: Unknown if Ever Smoked Frequency of Alcohol Use: None Hx Recreational Drug Use: No Hx Prescription Drug Abuse: No - Medication/Allergies Home Medications: Apixaban [Eliquis 2.5 mg Tablet] 2.5 mg PO BID 12/03/17 Atorvastatin Calcium [Lipitor 40 mg Tablet] 40 mg PO QHS 12/03/17 Levothyroxine Sodium [Synthroid] 100 mcg PO Q6AM 12/03/17 Sertraline HCl [Zoloft] 25 mg PO QAM 12/03/17 Metoprolol Succinate [Toprol Xl 50 mg Tab.sr] 200 mg PO DAILY 03/22/19 Multivitamin [Tab-A-[place] (Multiple Vitamin) Tablet] 1 tab PO DAILY 03/22/19 Nitrofurantoin Macrocrystal [Macrodantin] 100 mg PO DAILY 03/22/19 Omeprazole 40 mg PO DAILY 03/22/19 Telmisartan [Micardis 80 mg Tablet] 80 mg PO DAILY 03/22/19 Acetaminophen [Tylenol 325 mg Tablet] 650 mg PO Q6HP PRN tablet 03/25/19 Alprazolam [Xanax] 1 mg PO QHS #30 tablet 03/25/19 Tramadol HCl [Ultram 50 mg Tablet] 50 mg PO Q6HP PRN #120 tablet 03/25/19 Allergies/Adverse Reactions: meperidine HCl [From Demerol] Allergy (Severe, Verified 03/21/20 03:24) Review of Systems ROS unobtainable: Due to endotracheal tube Physical Exam Vital Signs: Temp Pulse Resp BP Pulse Ox 95.6 F L 71 20 172/123 H 100 03/21/20 02:50 03/21/20 02:58 03/21/20 04:41 03/21/20 04:41 03/21/20 04:40 Intake & Output 03/19/20 03/20/20 03/21/20 06:59 06:59 06:59 Intake Total 1 Output Total 20 - Weight 124 kg Weight/Height Weight 124 kg Height 5 ft 6 in General appearance: PRESENT: morbidly obese Head exam: PRESENT: atraumatic Eye exam: PRESENT: other - Bilateral cataracts Mouth exam: PRESENT: moist Neck exam: PRESENT: JVD Respiratory exam: PRESENT: rales Cardiovascular exam: PRESENT: bradycardia, irregular rhythm Pulses: PRESENT: normal dorsalis pedis pul, +1 pedal pulses bilateral GI/Abdominal exam: PRESENT: normal bowel sounds, soft Gentrourinary exam: PRESENT: indwelling catheter Extremities exam: PRESENT: +1 edema Neurological exam: PRESENT: other - unresponsive Psychiatric exam: PRESENT: other Tubes/Lines: PRESENT: Endotracheal Tube, Nasogastic Tube Laboratory/Radiographs Laboratory Results: 03/21/20 03:05 03/21/20 03:05 03/21/20 03/21/20 03/21/20 03:05 03:05 03:05 WBC 4.8 RBC 3.85 Hgb 11.9 L Hct 37.5 MCV 98 H MCH 31.0 MCHC 31.7 L RDW 16.4 H Plt Count 201 Seg Neutrophils % 72.2 Carbonic Acid 1.49 H HCO3/H2CO3 Ratio 19:1 ABG pH 7.38 ABG pCO2 49.6 H ABG pO2 51.3 L ABG HCO3 28.9 H ABG O2 Saturation 85.4 L ABG Base Excess 3.1 FiO2 50% Sodium 138.8 Potassium 4.5 Chloride 98 Carbon Dioxide 33 H Anion Gap 8 BUN 31 H Creatinine 1.22 Est GFR ( Amer) 51 L Glucose 167 H Calcium 8.3 L Total Bilirubin 0.8 AST 79 H Alkaline Phosphatase 104 Total Protein 6.1 L Albumin 3.0 L Urine Color Urine Appearance Urine pH Ur Specific [place] Urine Protein Urine Glucose (UA) Urine Ketones Urine Blood Urine Nitrite Ur Leukocyte Esterase Urine WBC (Auto) Urine RBC (Auto) Blood Type Antibody Screen 03/21/20 03/21/20 03:10 03:28 WBC RBC Hgb Hct MCV MCH MCHC RDW Plt Count Seg Neutrophils % Carbonic Acid HCO3/H2CO3 Ratio ABG pH ABG pCO2 ABG pO2 ABG HCO3 ABG O2 Saturation ABG Base Excess FiO2 Sodium Potassium Chloride Carbon Dioxide Anion Gap BUN Creatinine Est GFR ( Amer) Glucose Calcium Total Bilirubin AST Alkaline Phosphatase Total Protein Albumin Urine Color LAURA Urine Appearance TURBID Urine pH 5.0 Ur Specific [place] 1.023 Urine Protein 100 H Urine Glucose (UA) NEGATIVE Urine Ketones NEGATIVE Urine Blood MODERATE H Urine Nitrite NEGATIVE Ur Leukocyte Esterase MODERATE H Urine WBC (Auto) >182 Urine RBC (Auto) 38 Blood Type O POSITIVE Antibody Screen NEGATIVE 03/21/20 03/21/20 03:05 03:05 Creatine Kinase 39 Troponin I 0.417 NT-Pro-B Natriuret Pep 31044 H Impressions: Chest X-Ray 03/21/20 02:55 IMPRESSION: Left lower lung opacity consistent with atelectasis and/or pneumonia. Critical Time Critical Time (minutes): 60 -: The care of a critically ill patient is dynamic. This note represents a static moment in the admission process. Orders and treatments may be given simultaneously and urgently, and time is not treasury representative of the treatment process. This patient requires Critical Care secondary to life threatening organ or limb dysfunction. Without Critical Care services, the patient is at risk for increased mortality and morbidity.
[2020-03-21] MEDS ORDERED: FUROSEMIDE INJ/PF 40 MG/4 ML SDV IV ONE (05:44)
[2020-03-21] MEDS: HEPARIN SOD (PORCINE) 5,000 UNIT/ML 1 ML VIAL SUBCUT SCH ×3 (06:25→22:12)
[2020-03-21] MEDS: FENTANYL CITRATE INJ/PF 100 MCG/2 ML AMPUL IV PRN ×5 (06:25→23:09)
--- NOTE | 2020-03-21 06:29 | RADIOLOGY REPORT (SQ) ---
CT head without contrast on 03/21/2020 at 5:16 AM CLINICAL INDICATION: Unresponsive TECHNIQUE: Multiple axial images are obtained throughout the head without the administration of contrast. This exam was performed according to our departmental dose-optimization program, which includes automated exposure control, adjustment of the mA and/or kV according to patient size and/or use of iterative reconstruction technique. Total DLP is 1028.78 mGy*cm. COMPARISON: MRI from 12/07/2017 FINDINGS: There is mild low-density in the periventricular white matter consistent with chronic small vessel ischemic changes. There is no hydrocephalus. There is no CT evidence of acute infarct. There is no hemorrhage. There are no abnormal extra-axial fluid collections. There is no mass, mass effect or midline shift. No bony abnormality is noted. IMPRESSION: No acute intracranial abnormality.
[2020-03-21] MEDS: LEVOTHYROXINE SODIUM 0.1 MG TABLET PO SCH (06:51)
[2020-03-21 06:53] LABS: FREE T3 3.32 pg/mL (2.77-5.27); FREE T4 (FREE THYROXINE) 1.74 ng/dL (0.78-2.19)
[2020-03-21 07:07] LABS: THYROID STIMULATING HORMONE 7.98 uIU/mL (0.47-4.68)
[2020-03-21] MEDS ORDERED: ENALAPRILAT DIHYDRATE INJ/PF 1.25 MG/1 ML SDV IV ONE ×2 (07:08→08:00)
[2020-03-21] MEDS ORDERED: PROPOFOL 1,000 MG/100 ML INFUS..BTL IV ONE (08:13)
[2020-03-21] MEDS: PROPOFOL 1,000 MG/100 ML INFUS..BTL IV PRN ×2 (08:25→19:50)
[2020-03-21] MEDS: PANTOPRAZOLE SODIUM 40 MG VIAL IV SCH (10:25)
--- NOTE | 2020-03-21 18:19 | RADIOLOGY REPORT (SQ) ---
EXAM DESCRIPTION: CHEST SINGLE VIEW IMAGES COMPLETED DATE/TIME: 03/21/2020 6:07 pm REASON FOR STUDY: pulmonary edema COMPARISON: Earlier the same day. NUMBER OF VIEWS: One view. TECHNIQUE: Single frontal radiographic image of the chest acquired. LIMITATIONS: None. FINDINGS: LUNGS AND PLEURA: Slightly improved aeration in the left base. Residual small left effusi on. MEDIASTINUM AND HILAR STRUCTURES: Stable heart size and mediastinal structures. HEART AND VASCULAR STRUCTURES: Stable appearance. SUPPORT DEVICES: Appropriate location without change. BONES: No acute findings. OTHER: No other significant finding. IMPRESSION: Improved aeration the left base. Persistent left pleural effusion. TECHNICAL DOCUMENTATION: JOB ID: [id number] 2010 [employer]- All Rights Reserved Reading location - IP/workstation name: [email or web address]
--- NOTE | 2020-03-21 20:57 | EKG REPORT ---
SEVERITY:- ABNORMAL ECG - ATRIAL FIBRILLATION PROBABLE INFERIOR INFARCT, AGE INDETERMINATE ANTERIOR INFARCT, AGE INDETERMINATE BORDERLINE PROLONGED QT INTERVAL : Confirmed by: Carmelina Plaza MD 21-Mar-2020 20:56:31
--- NOTE | 2020-03-21 23:23 | XCELERA REPORT ---
[address] [address] Transthoracic Echocardiogram Report Name: GIUSEPPE RINCON Age: 84 yrs Gender: Female : 1935 Patient Status: Inpatient Patient Location: ICU^610^A Study Date: 03/21/2020 10:10 AM Height: 66 in Weight: 273 lb BSA: 2.3 m2 Procedure: A two-dimensional transthoracic echocardiogram with color flow and Doppler was performed. Study Quality: Technically suboptimal. Reason For Study: Heart failure History: Heart failure. Ordering Physician: IL DIXON Performed By: Chanda Mckeon Interpretation Summary The left ventricle is normal in size. There is normal left ventricular wall thickness. LV EF is > than 60% Left ventricular systolic function is normal. The left ventricular wall motion is normal. There is no thrombus. Probably no ASD ,VSD or PFO The right ventricle is moderately dilated. The right ventricle is not well visualized secondary to technical limitations The left atrium is severely dilated. The right atrium is severely dilated. There is moderate mitral annular calcification. There is no evidence of mitral valve prolapse. There is no mitral valve stenosis. There is a mild amount of mitral regurgitation There is no aortic valvular vegetation. There is aortic sclerosis without aortic stenosis. There is no LVOT obstruction. There is a mild amount of aortic regurgitation There is no tricuspid stenosis. There is a moderate amount of tricuspid regurgitation There is moderate pulmonary hypertension by echo RVSP is at least 51 mm of HG ,with RA mean of at least 20.Suspect underestimation of RVSP due to undersampling of the Aortic Velocity jet. There is no pulmonic valvular stenosis. There is a trace amount of pulmonic regurgitation The aortic root is not well visualized but is probably normal size. The inferior vena cava appeared dilated and did not change with respiration (RAP > 20 mmHg) There is no pericardial effusion. Possible ascites. MMode/2D Measurements & Calculations RVDd: 4.7 cm LVIDd: 5.2 cm FS: 34.2 % Ao root diam: 2.9 cm IVSd: 1.1 cm LVIDs: 3.4 cm EDV(Teich): 129.1 ml Ao root area: 6.7 cm2 LVPWd: 1.0 cm ESV(Teich): 48.1 ml LA dimension: 5.1 cm EF(Teich): 62.8 % Doppler Measurements & Calculations MV E max abdullahi: MV P1/2t max abdullahi: Ao V2 max: AI max abdullahi: 82.1 cm/sec 82.9 cm/sec 132.9 cm/sec 449.4 cm/sec MV A max abdullahi: MV P1/2t: 48.5 msec Ao max PG: AI max P.8 mmHg 47.4 cm/sec MVA(P1/2t): 4.5 cm2 7.1 mmHg AI dec slope: MV E/A: 1.7 MV dec slope: 165.1 cm/sec2 AI P1/2t: 797.3 msec 501.0 cm/sec2 MV dec time: 0.16 sec LV V1 max PG: PA V2 max: TR max abdullahi: AV P1/2t-pr_phl: 3.7 mmHg 62.2 cm/sec 278.3 cm/sec 797.3 msec LV V1 max: PA max P.5 mmHg TR max P.8 cm/sec 31.0 mmHg LV dP/dt: 826.0 mmHg/s MV P1/2t-pr_phl: 48.5 msec Left Ventricle The left ventricle is normal in size. There is normal left ventricular wall thickness. LV EF is > than 60%. Left ventricular systolic function is normal. LV diastolic function could not be adequately assessed due to atrial fibrilation. The left ventricular wall motion is normal. There is no thrombus. Probably no ASD ,VSD or PFO. Right Ventricle The right ventricle is moderately dilated. The right ventricle is not well visualized secondary to technical limitations. Atria The right atrium is severely dilated. The left atrium is severely dilated. Mitral Valve There is moderate mitral annular calcification. There is no evidence of mitral valve prolapse. There is no mitral valve stenosis. There is a mild amount of mitral regurgitation. Aortic Valve There is no aortic valvular vegetation. There is aortic sclerosis without aortic stenosis. There is no LVOT obstruction. There is a mild amount of aortic regurgitation. Tricuspid Valve There is no tricuspid stenosis. There is a moderate amount of tricuspid regurgitation. There is moderate pulmonary hypertension by echo. RVSP is at least 51 mm of HG ,with RA mean of at least 20.Suspect underestimation of RVSP due to undersampling of the Aortic Velocity jet. Pulmonic Valve There is no pulmonic valvular stenosis. There is a trace amount of pulmonic regurgitation. Great Vessels The aortic root is not well visualized but is probably normal size. The inferior vena cava appeared dilated and did not change with respiration (RAP > 20 mmHg). Effusions There is no pericardial effusion. Possible ascites. : LI DIXON, Carmelina
[2020-03-22] MEDS: FENTANYL CITRATE INJ/PF 100 MCG/2 ML AMPUL IV PRN ×3 (01:21→16:06)
[2020-03-22] MEDS ORDERED: NORMAL SALINE 500 ML IV PRN (03:11)
[2020-03-22 04:06] LABS: ARTERIAL BLOOD BASE EXCESS 8.1 mmol/L; ARTERIAL BLOOD HCO3 29.2 mmol/L (20-24); ARTERIAL BLOOD O2 SATURATION 95.9 % (94-98); ARTERIAL BLOOD PCO2 29.8 mmHg (35-45); ARTERIAL BLOOD PO2 65.7 mmHg (80-100); ARTERIAL BLOOD TOTAL CO2 30.1 mmol/L (21-25)
[2020-03-22 04:07] LABS: ARTERIAL BLOOD FIO2 40%; ARTERIAL BLOOD PH 7.61 (7.35-7.45)
[2020-03-22] MEDS: HEPARIN SOD (PORCINE) 5,000 UNIT/ML 1 ML VIAL SUBCUT SCH ×3 (05:53→18:09)
[2020-03-22] MEDS: LEVOTHYROXINE SODIUM 0.1 MG TABLET PO SCH (05:53)
[2020-03-22] MEDS: PROPOFOL 1,000 MG/100 ML INFUS..BTL IV PRN (05:53)
[2020-03-22 06:30] LABS: INTERNATIONAL RATION (INR) 1.59; PROTHROMBIN TIME 19.1 SEC (11.4-15.4)
[2020-03-22 06:31] LABS: PARTIAL THROMBOPLASTIN TIME 37.3 SEC (23.5-35.8)
[2020-03-22 06:32] LABS: ABSOLUTE LYMPHOCYTES (AUTO) 0.9 10^3/uL (0.5-4.7); ABSOLUTE MONOCYTES (AUTO) 0.5 10^3/uL (0.1-1.4); ABSOLUTE NEUT (AUTO) 4.3 10^3/uL (1.7-8.2); BASOPHILS % (AUTO) 0.5 % (0-2); EOSINOPHILS % (AUTO) 0.5 % (0-6); HEMATOCRIT 33.9 % (36.0-47.0); HEMOGLOBIN 11.4 g/dL (12.0-15.5); MEAN CORPUSCULAR HEMOGLOBIN 30.9 pg (27.0-33.4); MEAN CORPUSCULAR HGB CONC 33.6 g/dL (32.0-36.0); MONOCYTES % (AUTO) 9.2 % (3-13); PLATELET COUNT 153 10^3/uL (150-450); RED BLOOD COUNT 3.69 10^6/uL (3.72-5.28); SEGMENTED NEUTROPHILS % (AUTO) 74.8 % (42-78); TOTAL CELLS COUNTED % (AUTO) 100 %; WHITE BLOOD COUNT 5.7 10^3/uL (4.0-10.5)
[2020-03-22 06:42] LABS: MEAN CORPUSCULAR VOLUME 92 fl (80-97)
[2020-03-22 06:44] LABS: ALBUMIN 2.6 g/dL (3.5-5.0); ALKALINE PHOSPHATASE 78 U/L (38-126); ANION GAP 7 (5-19); ASPARTATE AMINO TRANSFERASE 39 U/L (14-36); BILIRUBIN,DIRECT 0.1 mg/dL (0.0-0.4); BLOOD UREA NITROGEN 36 mg/dL (7-20); CALCIUM 8.1 mg/dL (8.4-10.2); CARBON DIOXIDE 30 mmol/L (22-30); CHLORIDE 99 mmol/L (98-107); GLUCOSE 78 mg/dL (75-110); PHOSPHORUS 1.9 mg/dL (2.5-4.5); POTASSIUM 3.3 mmol/L (3.6-5.0); TOTAL PROTEIN 5.5 g/dL (6.3-8.2)
--- NOTE | 2020-03-22 08:06 | RADIOLOGY REPORT (SQ) ---
EXAM DESCRIPTION: CHEST SINGLE VIEW IMAGES COMPLETED DATE/TIME: 03/22/2020 5:44 am REASON FOR STUDY: Respiratory failure COMPARISON: 03/21/2020 NUMBER OF VIEWS: One view. TECHNIQUE: Single frontal radiographic image of the chest acquired. LIMITATIONS: None. FINDINGS: LUNGS AND PLEURA: Stable appearance. MEDIASTINUM AND HILAR STRUCTURES: Stable heart size and mediastinal structures. HEART AND VASCULAR STRUCTURES: Stable appearance. SUPPORT DEVICES: Appropriate location without change. BONES: No acute findings. OTHER: No other significant finding. IMPRESSION: STABLE APPEARANCE OF THE CHEST. SUPPORT DEVICES UNCHANGED. TECHNICAL DOCUMENTATION: JOB ID: [id number] 2010 [employer]- All Rights Reserved Reading location - IP/workstation name: [email or web address]
[2020-03-22] MEDS: ALBUMIN HUMAN 12.5 GM/50 ML RTUINJ IV SCH ×2 (10:28→10:55)
[2020-03-22] MEDS: PANTOPRAZOLE SODIUM 40 MG VIAL IV SCH (10:28)
[2020-03-22] MEDS ORDERED: FUROSEMIDE INJ/PF 40 MG/4 ML SDV IV ONE ×2 (10:30→17:43)
--- NOTE | 2020-03-22 10:44 | CDI QUERY ---
CDI Query CDI Review: Dear Provider: To better reflect your patients severity of illness, morbidity, and resource utilization Please specify and document in the Progress Notes and Discharge Summary if you are monitoring / treating / evaluating any of the following conditions: Query Clinical indicators Please specify the type and acuity of the heart failure in your Progress Notes: Type Systolic Diastolic Combined systolic and diastolic Other heart failure (please specify) Unable to determine Acuity Acute Chronic Acute on chronic (decompensated, exacerbated) Unable to determine Per Critical Care Admission Notes: CHF (congestive heart failure) Qualifiers: Heart failure type: unspecified Heart failure chronicity: unspecified Qualified Code(s): I50.9 - Heart failure, unspecified Is this a current diagnosis for this admission?: Yes Plan: Will diurese with Lasix 40 mg x 1 will order transthoracic echo The terms probable, suspected, likely, possible or still to be ruled out may be used if you are unable to determine the exact nature of a condition. Thank you for your consideration, Clinical Documentation Physician Advisors BELEN Daniels RN, BSN RN Office [phone] Office [phone]
[2020-03-22] MEDS: ALBUTEROL SULFATE 0.083% NEB 2.5 MG/3 ML AMPUL NEB SCH ×2 (13:27→21:26)
[2020-03-22] MEDS ORDERED: POTASSIUM CHLORIDE 20 MEQ PACKET PO ONE (14:30)
[2020-03-22] MEDS: MAGNESIUM SULFATE/D5W 1 GM/100 ML RTUPB IV SCH ×2 (15:36→18:07)
[2020-03-22] MEDS: POTASSI CL 20 MEQ/50 ML RIDER 20 MEQ/50 ML RTUPB IV SCH ×2 (15:36→18:07)
--- NOTE | 2020-03-22 16:01 | PDOC CRITICAL CARE PROG REPORT ---
General Date:: 03/22/20 ICU Day:: 2 Ventilator Day:: 2 Hospital Day:: 2 Resuscitation Status: Full Code Events in the past 12 to 24 Hours:: 03/21: Admitted from the emergency department with acute hypoxemic respiratory failure. Had agonal respirations and weak pulse at home. Intubated in the field. Hypotensive after ketamine, rocuronium and fentanyl for intubation. CT was negative for acute hemorrhagic stroke. 03/22: Remains intubated. Sedated with propofol. Easily arousable. Follows katlin edmondson. 2D-echocardiographic interrogation was performed yesterday and revealed normal LVEF. Atrial fibrillation; therefore, no diastology. Mild mitral regurgitation. Severe LA dilatation. RV moderately dilated. Moderate tricuspid regurgitation. Estimated RVSP 51+ mmHg. IVC appeared dilated and did not change with respiration. No pericardial effusion. Reason for ICU Addmission:: Acute Respiratory Failure - Medications: Medications reviewed and adjusted accordingly: Yes Sedation:: Propofol Physical Exam Vital Signs: Temp Pulse Resp BP Pulse Ox 97.9 F 92 16 111/73 96 03/22/20 05:35 03/22/20 09:00 03/22/20 10:01 03/22/20 10:01 03/22/20 11:50 Intake & Output 03/21/20 03/22/20 03/23/20 06:59 06:59 06:59 Intake Total 1 777 23 Output Total 120 710 80 Balance -119 67 -57 Weight 119.7 kg 118.9 kg Weight/Height Weight 118.9 kg Height 1.68 m General appearance: PRESENT: no acute distress, well-developed, well-nourished Eye exam: PRESENT: conjunctiva pink, EOMI, PERRLA. ABSENT: scleral icterus Mouth exam: PRESENT: moist, tongue midline Neck exam: ABSENT: carotid bruit, JVD, lymphadenopathy, thyromegaly Respiratory exam: PRESENT: crackles, rales. ABSENT: rhonchi, wheezes Cardiovascular exam: PRESENT: irregular rhythm. ABSENT: diastolic murmur, rubs, systolic murmur Pulses: PRESENT: normal dorsalis pedis pul GI/Abdominal exam: PRESENT: normal bowel sounds, soft. ABSENT: distended, guarding, mass, organolmegaly, rebound, tenderness Extremities exam: PRESENT: full ROM. ABSENT: calf tenderness, clubbing, pedal edema Musculoskeletal exam: PRESENT: normal inspection. ABSENT: deformity Neurological exam: PRESENT: CN II-XII grossly intact, other - Sedated with propofol. ABSENT: motor sensory deficit Skin exam: PRESENT: dry, intact, warm. ABSENT: cyanosis, rash Tubes/Lines: PRESENT: Endotracheal Tube, Nasogastic Tube Laboratory/Radiographs Laboratory Results: 03/22/20 06:16 03/22/20 06:16 03/22/20 03/22/20 03/22/20 03:45 04:52 06:16 WBC Cancelled RBC Cancelled Hgb Cancelled Hct Cancelled MCV Cancelled MCH Cancelled MCHC Cancelled RDW Cancelled Plt Count Cancelled Seg Neutrophils % Cancelled Carbonic Acid 0.90 L HCO3/H2CO3 Ratio 32:1 ABG pH 7.61 H* ABG pCO2 29.8 L ABG pO2 65.7 L ABG HCO3 29.2 H ABG O2 Saturation 95.9 ABG Base Excess 8.1 FiO2 40% Sodium 135.9 L Potassium 3.3 L Chloride 99 Carbon Dioxide 30 Anion Gap 7 BUN 36 H Creatinine 1.08 Est GFR ( Amer) 59 L Glucose 78 Calcium 8.1 L Phosphorus 1.9 L Magnesium 1.4 L Total Bilirubin 1.0 AST 39 H Alkaline Phosphatase 78 Total Protein 5.5 L Albumin 2.6 L 03/22/20 06:16 WBC 5.7 RBC 3.69 L Hgb 11.4 L Hct 33.9 L MCV 92 D MCH 30.9 MCHC 33.6 RDW 16.0 H Plt Count 153 Seg Neutrophils % 74.8 Carbonic Acid HCO3/H2CO3 Ratio ABG pH ABG pCO2 ABG pO2 ABG HCO3 ABG O2 Saturation ABG Base Excess FiO2 Sodium Potassium Chloride Carbon Dioxide Anion Gap BUN Creatinine Est GFR ( Amer) Glucose Calcium Phosphorus Magnesium Total Bilirubin AST Alkaline Phosphatase Total Protein Albumin 03/21/20 03:10 Blood Blood Culture (PCR) - Final Staphylococcus Species 03/21/20 03/21/20 03/21/20 03:05 03:05 06:20 Creatine Kinase 39 Troponin I 0.417 0.628 NT-Pro-B Natriuret Pep [id number] H 03/21/20 03/21/20 03/21/20 12:42 13:49 19:15 Creatine Kinase Troponin I Cancelled 0.706 0.672 NT-Pro-B Natriuret Pep 05/22/20 04:52 Creatine Kinase Troponin I NT-Pro-B Natriuret Pep 6820 H Impressions: Head CT 03/21/20 00:00 IMPRESSION: No acute intracranial abnormality. Chest X-Ray 03/22/20 06:00 IMPRESSION: STABLE APPEARANCE OF THE CHEST. SUPPORT DEVICES UNCHANGED. Assessment and Plan - Diagnosis (1) Acute hypoxemic respiratory failure Is this a current diagnosis for this admission?: Yes Plan: Wean as tolerated. Pressure support trial today. Anticipate liberation from mechanical ventilatory support within 24 hours. CTA chest to rule out pulmonary embolism. (2) E. coli UTI Is this a current diagnosis for this admission?: Yes Plan: Start Rocephin. (3) Chronic atrial fibrillation Is this a current diagnosis for this admission?: Yes Plan: The patient reportedly has chronic atrial fibrillation and may be on Eliquis for stroke prophylaxis; however, this is currently not found on her home medication list. Also, she is on heparin for DVT prophylaxis. In the absence of any evidence of ongoing blood loss, Eliquis (or heparin infusion) should be restarted. (4) Normocytic anemia Is this a current diagnosis for this admission?: Yes (5) Hypokalemia Is this a current diagnosis for this admission?: Yes Plan: Replete (6) Hypomagnesemia Is this a current diagnosis for this admission?: Yes Plan: Replete (7) Volume overload Qualifiers: Hypervolemia type: unspecified Qualified Code(s): E87.70 - Fluid overload, unspecified Is this a current diagnosis for this admission?: Yes (8) Parkinsonian syndrome Qualifiers: Parkinsonism type: unspecified Qualified Code(s): G20 - Parkinson's disease Is this a current diagnosis for this admission?: Yes Critical Time Critical Time (minutes): 90 Level of Care: ICU -: 1. The care of a critical patient is a dynamic process. This note is a kiosk sales representative synopsis but static in nature. The timeframe for treatments given in order is not necessarily the actual time these treatments may have been done. 2. This patient requires critical care secondary to ongoing requirements for t herapy not offered or safe outside the critical care environment. Transfer to a lower level of care will result in altered life or limb morbidity and mortality. 3. Multidisciplinary rounds completed. 4. ABCDE bundle addressed.
[2020-03-22 16:24] LABS: ARTERIAL BLOOD BASE EXCESS 8.9 mmol/L; ARTERIAL BLOOD H2CO3 1.67 mmol/L (1.05-1.35); ARTERIAL BLOOD O2 SATURATION 94.1 % (94-98); ARTERIAL BLOOD PCO2 55.5 mmHg (35-45); ARTERIAL BLOOD PH 7.42 (7.35-7.45); ARTERIAL BLOOD PO2 70.3 mmHg (80-100); ARTERIAL BLOOD TOTAL CO2 36.7 mmol/L (21-25)
[2020-03-22 16:25] LABS: ARTERIAL BLOOD FIO2 40%
[2020-03-22] MEDS ORDERED: HEPARIN SOD (PORCINE) 1,000 UNIT/ML 10 ML VIAL IV ONE (17:43)
--- NOTE | 2020-03-22 18:02 | RADIOLOGY REPORT (SQ) ---
EXAM DESCRIPTION: CTA CHEST IMAGES COMPLETED DATE/TIME: 03/22/2020 5:48 pm REASON FOR STUDY: acute hypoxemic resp failure COMPARISON: 01/21/2017 TECHNIQUE: CT scan of the chest performed using helical scanning technique with dynamic intravenous contrast injection. Images reviewed with lung, soft tissue and bone windows. Reconstructed coronal and sagittal MPR images reviewed. Additional 3 dimensional post-processing performed to develop Maximal Intensity Projection images (IN P). All images stored on PACS. All CT scanners at this facility use dose modulation, iterative reconstruction, and/or weight based d osing when appropriate to reduce radiation dose to as low as reasonably achievable (ALARA). [facility]: Dose Right [facility]: CareDose [facility]: Dose Right [facility]: Teradose 4D [facility]: Cubeyou CONTRAST TYPE AND DOSE: contrast/concentration: Isovue 350.00 mg/ml; Total Contrast Delivered: 80.0 ml; Total Saline Delivered: 80.0 ml Contrast bolus adequate for pulmonary arteries and aorta. RENAL FUNCTION: BUN 36 creatinine 1.1 RADIATION DOSE: CT Rad equipment meets quality standard of care and radiation dose reduction techniq ues were employed. CTDIvol: 28.1 - 46.3 mGy. DLP: 1017 mGy-cm. . LIMITATIONS: None. FINDINGS: LUNGS AND PLEURA: Moderate bilateral pleural effusions with associated airspace disease in the lower lobes. AORTA AND GREAT VESSELS: No aneurysm. No dissection. HEART: No pericardial effusion. Moderate to marked coronary artery calcifications. PULMONARY ARTERIES: No emboli visualized in the main pulmonary arteries or the segmental branches. HILAR AND MEDIASTINAL STRUCTURES: No identified masses or abnormal nodes. HARDWARE: Endotracheal tube. NG tube. UPPER ABDOMEN: No significant findings. Limited exam. THYROID AND OTHER SOFT TISSUES: No masses. No adenopathy. BONES: No acute or significant finding. 3D MIPS: Confirm above findings. OTHER: No other significant finding. IMPRESSION: Bilateral pleural effusions with associated airspace disease, likely atelectasis in the lower lobes. There is no pulmonary embolus. There is no aortic aneurysm or dissection. COMMENT: Quality ID # [id number]: Final reports with documentation of one or more dose reduction techniques (e.g., Automated exposure control, adjustment of the mA and/or kV according to patient size, use of iterative reconstruction technique) TECHNICAL DOCUMENTATION: JOB ID: [id number] [employer]- All Rights Reserved Reading location - IP/workstation name: [email or web address]
[2020-03-22] MEDS: HEPARIN SODIUM,PORCINE/D5W 25,000 UNIT/250 ML RTUINJ IV PRN (18:38)
--- NOTE | 2020-03-22 18:51 | EKG REPORT ---
SEVERITY:- ABNORMAL ECG - SINUS RHYTHM ATRIAL PREMATURE COMPLEX LEFT BUNDLE BRANCH BLOCK : Confirmed by: Carmelina Plaza MD 22-Mar-2020 18:49:50
[2020-03-22] MEDS: LEVOFLOXACIN 750 MG/D5W RTU 750 MG/150 ML RTUPB IV SCH (20:30)
[2020-03-22] MEDS ORDERED: HEPARIN SOD (PORCINE) 1,000 UNIT/ML 10 ML VIAL IV PRN (20:44)
[2020-03-23] MEDS: ALBUTEROL SULFATE 0.083% NEB 2.5 MG/3 ML AMPUL NEB SCH ×4 (02:15→19:56)
[2020-03-23] MEDS ORDERED: ALPRAZOLAM 0.25 MG TABLET PO ONE (03:00)
[2020-03-23 04:38] LABS: ABSOLUTE LYMPHOCYTES (AUTO) 0.5 10^3/uL (0.5-4.7); ABSOLUTE MONOCYTES (AUTO) 0.8 10^3/uL (0.1-1.4); ABSOLUTE NEUT (AUTO) 6.3 10^3/uL (1.7-8.2); BASOPHILS % (AUTO) 0.2 % (0-2); EOSINOPHILS % (AUTO) 0.1 % (0-6); HEMATOCRIT 34.6 % (36.0-47.0); HEMOGLOBIN 11.5 g/dL (12.0-15.5); LYMPHOCYTES % (AUTO) 6.2 % (13-45); MEAN CORPUSCULAR HEMOGLOBIN 30.9 pg (27.0-33.4); MEAN CORPUSCULAR HGB CONC 33.2 g/dL (32.0-36.0); MEAN CORPUSCULAR VOLUME 93 fl (80-97); PLATELET COUNT 156 10^3/uL (150-450); RED BLOOD COUNT 3.72 10^6/uL (3.72-5.28); RED CELL DISTRIBUTION WIDTH 16.2 % (11.5-14.0); SEGMENTED NEUTROPHILS % (AUTO) 83.5 % (42-78); TOTAL CELLS COUNTED % (AUTO) 100 %; WHITE BLOOD COUNT 7.5 10^3/uL (4.0-10.5)
[2020-03-23 04:40] LABS: INTERNATIONAL RATION (INR) 1.41; PROTHROMBIN TIME 17.4 SEC (11.4-15.4)
[2020-03-23 04:41] LABS: PARTIAL THROMBOPLASTIN TIME 66.8 SEC (23.5-35.8)
[2020-03-23 04:51] LABS: ALKALINE PHOSPHATASE 74 U/L (38-126); ANION GAP 9 (5-19); ASPARTATE AMINO TRANSFERASE 31 U/L (14-36); BILIRUBIN,DIRECT 0.2 mg/dL (0.0-0.4); BILIRUBIN,TOTAL 0.9 mg/dL (0.2-1.3); BLOOD UREA NITROGEN 28 mg/dL (7-20); CALCIUM 8.3 mg/dL (8.4-10.2); CARBON DIOXIDE 34 mmol/L (22-30); CHLORIDE 94 mmol/L (98-107); GLUCOSE 95 mg/dL (75-110); POTASSIUM 3.5 mmol/L (3.6-5.0); TOTAL PROTEIN 5.9 g/dL (6.3-8.2)
[2020-03-23] MEDS: POTASSI CL 20 MEQ/50 ML RIDER 20 MEQ/50 ML RTUPB IV SCH ×2 (06:01→10:09)
[2020-03-23] MEDS: LEVOTHYROXINE SODIUM 0.1 MG TABLET PO SCH (06:02)
[2020-03-23 07:56] LABS: CHOLESTEROL 82.44 mg/dL (0-200); TRIGLYCERIDES 94 mg/dL (<150)
[2020-03-23 08:13] LABS: DIRECT LDL < 30 mg/dL (<100)
--- NOTE | 2020-03-23 08:45 | EKG REPORT ---
SEVERITY:- ABNORMAL ECG - ATRIAL FIBRILLATION LEFT BUNDLE BRANCH BLOCK : Confirmed by: Carmelina Plaza MD 23-Mar-2020 08:44:42
--- NOTE | 2020-03-23 08:57 | RADIOLOGY REPORT (SQ) ---
EXAM DESCRIPTION: CHEST SINGLE VIEW IMAGES COMPLETED DATE/TIME: 03/23/2020 5:49 am REASON FOR STUDY: Respiratory failure COMPARISON: CT chest 03/22/2020 Chest films 03/22/2020, 03/21/2020, 05/25/2019 EXAM PARAMETERS: NUMBER OF VIEWS: One view. TECHNIQUE: Single frontal radiographic view of the chest acquired. RADIATION DOSE: NA LIMITATIONS: None. FINDINGS: LUNGS AND PLEURA: Low lung volumes. Hazy opacity over the right lung base likely from sma ll right pleural effusion. Minimal bibasilar atelectasis. No pneumothorax MEDIASTINUM AND HILAR STRUCTURES: No masses. Contour normal. HEART AND VASCULAR STRUCTURES: Stable marked cardiomegaly BONES: No acute findings. HARDWARE: Nasogastric tube tip and side port below the hemidiaphragms OTHER: No other significant finding. IMPRESSION: Small right pleural effusion Minimal bibasilar atelectasis Nasogastric tube tip and side port in the stomach TECHNICAL DOCUMENTATION: JOB ID: [id number] 2010 [employer]- All Rights Reserved Reading location - IP/workstation name: [email or web address]
[2020-03-23] MEDS ORDERED: ALPRAZOLAM 0.25 MG TABLET PO SCH (10:00)
[2020-03-23] MEDS: MAGNESIUM SULFATE/D5W 1 GM/100 ML RTUPB IV SCH ×4 (10:03→14:57)
[2020-03-23] MEDS: LEVOFLOXACIN 750 MG/D5W RTU 750 MG/150 ML RTUPB IV SCH (10:09)
[2020-03-23] MEDS: MAGNESIUM OXIDE 400 MG TABLET PO SCH ×2 (10:10→18:24)
[2020-03-23] MEDS: ALPRAZOLAM 0.25 MG TABLET PO SCH ×2 (10:10→18:24)
[2020-03-23] MEDS: PANTOPRAZOLE SODIUM 40 MG VIAL IV SCH (10:10)
[2020-03-23] MEDS: HEPARIN SODIUM,PORCINE/D5W 25,000 UNIT/250 ML RTUINJ IV PRN (16:38)
--- NOTE | 2020-03-23 17:00 | PDOC CRITICAL CARE PROG REPORT ---
General Date:: 03/23/20 ICU Day:: 3 Hospital Day:: 3 Resuscitation Status: Full Code Events in the past 12 to 24 Hours:: 03/21: Admitted from the emergency department with acute hypoxemic respiratory failure. Had agonal respirations and weak pulse at home. Intubated in the field. Hypotensive after ketamine, rocuronium and fentanyl for intubation. CT was negative for acute hemorrhagic stroke. 03/22: Remains intubated. Sedated with propofol. Easily arousable. Follows commands. 2D-echocardiographic interrogation was performed yesterday and revealed normal LVEF. Atrial fibrillation; therefore, no diastology. Mild mitral regurgitation. Severe LA dilatation. RV moderately dilated. Moderate tricuspid regurgitation. Estimated RVSP 51+ mmHg. IVC appeared dilated and did not change with respiration. No pericardial effusion. 03/23: Successfully extubated yesterday evening. On nasal cannula. CT a of the chest showed bilateral pleural effusions with associated compressive atelectasis. No evidence for pulmonary embolism. On heparin infusion for atrial fibrillation. Review of systems relevant to events:: Cardiovascular, respiratory Reason for ICU Addmission:: Acute Respiratory Failure Physical Exam Vital Signs: Temp Pulse Resp BP Pulse Ox 99.9 F 94 22 H 124/72 94 03/23/20 05:37 03/23/20 07:55 03/23/20 07:55 03/23/20 06:01 03/23/20 07:55 Intake & Output 03/22/20 03/23/20 03/24/20 06:59 06:59 06:59 Intake Total 777 277 Output Total 710 9078 Balance 67 -6423 Weight 118.9 kg 117.4 kg Weight/Height Weight 117.4 kg Height 1.68 m General appearance: PRESENT: no acute distress, well-developed, well-nourished Head exam: PRESENT: atraumatic, normocephalic Eye exam: PRESENT: conjunctiva pink, EOMI, PERRLA. ABSENT: scleral icterus Mouth exam: PRESENT: moist, tongue midline Neck exam: ABSENT: carotid bruit, JVD, lymphadenopathy, thyromegaly Respiratory exam: PRESENT: crackles, decreased breath sounds - Bases, rales. ABSENT: rhonchi, wheezes Cardiovascular exam: PRESENT: irregular rhythm. ABSENT: diastolic murmur, rubs, systolic murmur Pulses: PRESENT: normal dorsalis pedis pul GI/Abdominal exam: PRESENT: normal bowel sounds, soft. ABSENT: distended, guarding, mass, organolmegaly, rebound, tenderness Extremities exam: PRESENT: full ROM, pedal edema, +1 edema. ABSENT: calf tenderness, clubbing Neurological exam: PRESENT: alert, awake, oriented to person, oriented to place, oriented to time, oriented to situation, CN II-XII grossly intact. ABSENT: motor sensory deficit Skin exam: PRESENT: dry, intact, warm. ABSENT: cyanosis, rash Laboratory/Radiographs Laboratory Results: 03/23/20 04:16 03/23/20 04:16 03/22/20 03/23/20 03/23/20 16:15 04:16 04:16 WBC 7.5 RBC 3.72 Hgb 11.5 L Hct 34.6 L MCV 93 MCH 30.9 MCHC 33.2 RDW 16.2 H Plt Count 156 Seg Neutrophils % 83.5 H Carbonic Acid 1.67 H HCO3/H2CO3 Ratio 20:1 ABG pH 7.42 ABG pCO2 55.5 H ABG pO2 70.3 L ABG HCO3 35.0 H ABG O2 Saturation 94.1 ABG Base Excess 8.9 FiO2 40% Sodium 137.2 Potassium 3.5 L Chloride 94 L Carbon Dioxide 34 H Anion Gap 9 BUN 28 H Creatinine 0.75 Est GFR ( Amer) > 60 Glucose 95 Calcium 8.3 L Phosphorus 4.0 D Magnesium 1.4 L Total Bilirubin 0.9 AST 31 Alkaline Phosphatase 74 Total Protein 5.9 L Albumin 3.0 L Triglycerides Cholesterol LDL Cholesterol Direct VLDL Cholesterol HDL Cholesterol Lipase 03/23/20 04:16 WBC RBC Hgb Hct MCV MCH MCHC RDW Plt Count Seg Neutrophils % Carbonic Acid HCO3/H2CO3 Ratio ABG pH ABG pCO2 ABG pO2 ABG HCO3 ABG O2 Saturation ABG Base Excess FiO2 Sodium Potassium Chloride Carbon Dioxide Anion Gap BUN Creatinine Est GFR ( Amer) Glucose Calcium Phosphorus Magnesium Total Bilirubin AST Alkaline Phosphatase Total Protein Albumin Triglycerides 94 Cholesterol 82.44 LDL Cholesterol Direct < 30 VLDL Cholesterol 19.0 HDL Cholesterol 44 Lipase 41.9 03/21/20 03:10 Blood Blood Culture (PCR) - Final Staphylococcus Species 03/21/20 03/21/20 03/21/20 03:05 03:05 06:20 Creatine Kinase 39 Troponin I 0.417 0.628 NT-Pro-B Natriuret Pep 40995 H 03/21/20 03/21/20 03/21/20 12:42 13:49 19:15 Creatine Kinase Troponin I Cancelled 0.706 0.672 NT-Pro-B Natriuret Pep 03/22/20 03/23/20 04:52 04:16 Creatine Kinase Troponin I NT-Pro-B Natriuret Pep 6820 H 3070 H Impressions: Head CT 03/21/20 00:00 IMPRESSION: No acute intracranial abnormality. Chest/Abdomen CTA 03/22/20 00:00 IMPRESSION: Bilateral pleural effusions with associated airspace disease, likely atelectasis in the lower lobes. There is no pulmonary embolus. There is no aortic aneurysm or dissection. All labs, radiographs, diagnostic studies and EKGs were personally reviewed: Yes In addition, reports of radiographic and diagnostic studies were read: Yes Assessment and Plan - Diagnosis (1) Acute hypoxemic respiratory failure Is this a current diagnosis for this admission?: Yes Plan: Successfully extubated. Supplemental oxygen as needed to maintain SPO2 93+ percent. Wean to room air as tolerated. (2) E. coli UTI Is this a current diagnosis for this admission?: Yes Plan: Continue Rocephin. (3) Chronic atrial fibrillation Is this a current diagnosis for this admission?: Yes Plan: Continue heparin infusion. (4) Normocytic anemia Is this a current diagnosis for this admission?: Yes (5) Hypokalemia Is this a current diagnosis for this admission?: Yes (6) Hypomagnesemia Is this a current diagnosis for this admission?: Yes Plan: Replete. Also, start Mag-Ox 400 mg p.o. twice daily. On Protonix for GI prophylaxis with a history of GERD and hiatal hernia. (7) Volume overload Qualifiers: Hypervolemia type: unspecified Qualified Code(s): E87.70 - Fluid overload, unspecified Is this a current diagnosis for this admission?: Yes (8) Parkinsonian syndrome Qualifiers: Parkinsonism type: unspecified Qualified Code(s): G20 - Parkinson's disease Is this a current diagnosis for this admission?: Yes Critical Time Critical Time (minutes): 60 Level of Care: ICU -: 1. The care of a critical patient is a dynamic process. This note is a sales representative publications synopsis but static in nature. The timeframe for treatments given in order is not necessarily the actual time these treatments may have been done. 2. This patient requires critical care secondary to ongoing requirements for therapy not offered or safe outside the critical care environment. Transfer to a lower level of care will result in altered life or limb morbidity and mortality. 3. Multidisciplinary rounds completed. 4. ABCDE bundle addressed.
[2020-03-23] MEDS ORDERED: ALPRAZOLAM 0.5 MG TABLET PO ONE (22:41)
[2020-03-24] MEDS: ALBUTEROL SULFATE 0.083% NEB 2.5 MG/3 ML AMPUL NEB SCH ×4 (01:57→19:52)
[2020-03-24 02:05] LABS: ARTERIAL BLOOD BASE EXCESS 8.7 mmol/L; ARTERIAL BLOOD H2CO3 1.82 mmol/L (1.05-1.35); ARTERIAL BLOOD HCO3 35.5 mmol/L (20-24); ARTERIAL BLOOD O2 SATURATION 86.6 % (94-98); ARTERIAL BLOOD PCO2 60.3 mmHg (35-45); ARTERIAL BLOOD PH 7.39 (7.35-7.45); ARTERIAL BLOOD PO2 53.7 mmHg (80-100); ARTERIAL BLOOD TOTAL CO2 37.4 mmol/L (21-25)
[2020-03-24 02:10] LABS: ARTERIAL BLOOD FIO2 100%
--- NOTE | 2020-03-24 03:26 | RADIOLOGY REPORT (SQ) ---
EXAM DESCRIPTION: XR CHEST 1 VIEW COMPLETED DATE/TME: 03/24/2020 00:00 CLINICAL HISTORY: 84 years Female, hypoxia COMPARISON: One day prior. NUMBER OF VIEWS/TECHNIQUE: 1/AP FINDINGS: Moderate central edema pattern. Bilateral lower thoracic opacity/effusion. Atherosclerotic vascular disease. Moderate enlargement of the cardiac silhouette. Limitation: Leads/hardware/artifact. No pneumothorax. Stable bony thorax. IMPRESSION: Interval line/tube modification.
[2020-03-24 04:41] LABS: ABSOLUTE LYMPHOCYTES (AUTO) 0.7 10^3/uL (0.5-4.7); ABSOLUTE MONOCYTES (AUTO) 0.7 10^3/uL (0.1-1.4); BASOPHILS % (AUTO) 0.3 % (0-2); EOSINOPHILS % (AUTO) 0.2 % (0-6); HEMATOCRIT 32.2 % (36.0-47.0); HEMOGLOBIN 10.7 g/dL (12.0-15.5); LYMPHOCYTES % (AUTO) 12.4 % (13-45); MEAN CORPUSCULAR HEMOGLOBIN 30.9 pg (27.0-33.4); MEAN CORPUSCULAR HGB CONC 33.3 g/dL (32.0-36.0); MEAN CORPUSCULAR VOLUME 93 fl (80-97); MONOCYTES % (AUTO) 12.9 % (3-13); PLATELET COUNT 131 10^3/uL (150-450); RED BLOOD COUNT 3.47 10^6/uL (3.72-5.28); SEGMENTED NEUTROPHILS % (AUTO) 74.2 % (42-78); TOTAL CELLS COUNTED % (AUTO) 100 %; WHITE BLOOD COUNT 5.3 10^3/uL (4.0-10.5)
[2020-03-24 05:01] LABS: INTERNATIONAL RATION (INR) 1.38; PROTHROMBIN TIME 17.1 SEC (11.4-15.4)
[2020-03-24 05:02] LABS: ALBUMIN 2.6 g/dL (3.5-5.0); ALKALINE PHOSPHATASE 67 U/L (38-126); ASPARTATE AMINO TRANSFERASE 24 U/L (14-36); BILIRUBIN,DIRECT 0.1 mg/dL (0.0-0.4); BILIRUBIN,TOTAL 0.9 mg/dL (0.2-1.3); BLOOD UREA NITROGEN 24 mg/dL (7-20); CALCIUM 7.9 mg/dL (8.4-10.2); CARBON DIOXIDE 37 mmol/L (22-30); CHLORIDE 94 mmol/L (98-107); GLUCOSE 95 mg/dL (75-110); POTASSIUM 3.3 mmol/L (3.6-5.0); TOTAL PROTEIN 5.8 g/dL (6.3-8.2)
[2020-03-24 05:03] LABS: ANION GAP 3 (5-19); PARTIAL THROMBOPLASTIN TIME 117.7 SEC (23.5-35.8)
[2020-03-24 09:51] LABS: ARTERIAL BLOOD HCO3 36.2 mmol/L (20-24); ARTERIAL BLOOD O2 SATURATION 95.1 % (94-98); ARTERIAL BLOOD PCO2 63.1 mmHg (35-45); ARTERIAL BLOOD PH 7.38 (7.35-7.45); ARTERIAL BLOOD PO2 79.2 mmHg (80-100); ARTERIAL BLOOD TOTAL CO2 38.2 mmol/L (21-25)
[2020-03-24 09:52] LABS: ARTERIAL BLOOD FIO2 80%
[2020-03-24] MEDS: MAGNESIUM OXIDE 400 MG TABLET PO SCH ×3 (10:41→19:01)
[2020-03-24] MEDS: ALPRAZOLAM 0.25 MG TABLET PO SCH ×3 (10:41→19:01)
[2020-03-24] MEDS: SERTRALINE HCL 50 MG TABLET PO SCH ×2 (10:41→10:56)
[2020-03-24] MEDS: ALBUMIN HUMAN 12.5 GM/50 ML RTUINJ IV SCH ×4 (10:41→19:54)
[2020-03-24] MEDS: PANTOPRAZOLE SODIUM 40 MG VIAL IV SCH (10:42)
[2020-03-24] MEDS: LEVOFLOXACIN 750 MG/D5W RTU 750 MG/150 ML RTUPB IV SCH (10:42)
[2020-03-24] MEDS: LEVOTHYROXINE SODIUM 0.112 MG TABLET PO SCH ×2 (10:42→12:46)
[2020-03-24] MEDS: FUROSEMIDE INJ/PF 40 MG/4 ML SDV IV ONE ×2 (10:56→12:46)
[2020-03-24] MEDS ORDERED: FUROSEMIDE INJ/PF 40 MG/4 ML SDV IV ONE (19:00)
[2020-03-24] MEDS ORDERED: OXYCODONE-ACETAMINOPHEN 5-325 MG TABLET PO ONE (20:09)
[2020-03-24] MEDS ORDERED: APIXABAN 2.5 MG TABLET PO ONE (21:30)
[2020-03-24] MEDS ORDERED: BISACODYL 5 MG TABEC PO ONE (21:38)
[2020-03-25] MEDS ORDERED: BISACODYL 5 MG TABEC PO ONE (00:30)
[2020-03-25] MEDS: ALBUTEROL SULFATE 0.083% NEB 2.5 MG/3 ML AMPUL NEB SCH ×4 (02:11→20:25)
[2020-03-25 04:51] LABS: APPEARANCE,URINE CLEAR; BILIRUBIN,URINE NEGATIVE (NEGATIVE); COLOR,URINE YELLOW; GLUCOSE, URINE NEGATIVE (NEGATIVE); KETONES,URINE NEGATIVE (NEGATIVE); LEUKOCYTE ESTERASE,URINE NEGATIVE (NEGATIVE); NITRITE,URINE NEGATIVE (NEGATIVE); PROTEIN,URINE NEGATIVE (NEGATIVE); URINE SPECIFIC GRAVITY 1.009; UROBILINOGEN,URINE NEGATIVE mg/dL (<2.0)
[2020-03-25] MEDS: LEVOTHYROXINE SODIUM 0.112 MG TABLET PO SCH (05:05)
[2020-03-25] MEDS: ACETAMINOPHEN 325 MG TABLET PO PRN (05:06)
[2020-03-25 05:22] LABS: HEMATOCRIT 37.2 % (36.0-47.0); HEMOGLOBIN 12.5 g/dL (12.0-15.5); MEAN CORPUSCULAR HEMOGLOBIN 31.1 pg (27.0-33.4); MEAN CORPUSCULAR HGB CONC 33.5 g/dL (32.0-36.0); MEAN CORPUSCULAR VOLUME 93 fl (80-97); PLATELET COUNT 155 10^3/uL (150-450); RED BLOOD COUNT 4.01 10^6/uL (3.72-5.28); RED CELL DISTRIBUTION WIDTH 15.8 % (11.5-14.0); WHITE BLOOD COUNT 9.5 10^3/uL (4.0-10.5)
[2020-03-25 05:37] LABS: ANION GAP 5 (5-19); BLOOD UREA NITROGEN 25 mg/dL (7-20); CALCIUM 8.3 mg/dL (8.4-10.2); CARBON DIOXIDE 36 mmol/L (22-30); CHLORIDE 93 mmol/L (98-107); GLUCOSE 96 mg/dL (75-110); POTASSIUM 3.5 mmol/L (3.6-5.0)
[2020-03-25] MEDS: ALPRAZOLAM 0.25 MG TABLET PO SCH (10:00)
[2020-03-25] MEDS: PANTOPRAZOLE SODIUM 40 MG VIAL IV SCH (10:00)
[2020-03-25] MEDS: SERTRALINE HCL 50 MG TABLET PO SCH (10:00)
[2020-03-25] MEDS: APIXABAN 2.5 MG TABLET PO SCH ×2 (10:00→17:24)
[2020-03-25] MEDS ORDERED: ALBUMIN HUMAN 500 ML IV ONE ×2 (10:00→18:34)
[2020-03-25] MEDS: MAGNESIUM OXIDE 400 MG TABLET PO SCH ×2 (10:00→17:24)
[2020-03-25] MEDS: LEVOFLOXACIN 750 MG/D5W RTU 750 MG/150 ML RTUPB IV SCH (10:01)
[2020-03-25] MEDS: CEFTRIAXONE 1 GM/D5W RTU 1 GM/50 ML RTUPB IV SCH (17:20)
[2020-03-25] MEDS: MIDODRINE HCL 5 MG TABLET PO SCH ×2 (18:44→18:52)
[2020-03-25] MEDS: HYDROCORTISONE SOD SUCCINATE INJ/PF 100 MG/2 ML SDV IV SCH (18:44)
[2020-03-25 20:47] LABS: ARTERIAL BLOOD BASE EXCESS 8.7 mmol/L; ARTERIAL BLOOD FIO2 2; ARTERIAL BLOOD H2CO3 1.85 mmol/L (1.05-1.35); ARTERIAL BLOOD HCO3 35.5 mmol/L (20-24); ARTERIAL BLOOD O2 SATURATION 91.8 % (94-98); ARTERIAL BLOOD PCO2 61.6 mmHg (35-45); ARTERIAL BLOOD PH 7.38 (7.35-7.45); ARTERIAL BLOOD PO2 65.3 mmHg (80-100); ARTERIAL BLOOD TOTAL CO2 37.3 mmol/L (21-25)
--- NOTE | 2020-03-25 20:52 | PDOC CRITICAL CARE PROG REPORT ---
General Date:: 03/25/20 ICU Day:: 4 Hospital Day:: 4 Resuscitation Status: Full Code Medical Power of Manager Marketing Communication: Daughters Events in the past 12 to 24 Hours:: 03.25.2020: Patient extubated on evening. She has remained off the ventilator. She is not complaining of any shortness of breath or chest pain. Had been diuresing and placed on albumin in the last 24 hours. During the afternoon nursing noted hypotension and this responded to albumin supplementation. From Previous notes, Dr. Denise: "03/21: Admitted from the emergency department with acute hypoxemic respiratory failure. Had agonal respirations and weak pulse at home. Intubated in the field. Hypotensive after ketamine, rocuronium and fentanyl for intubation. CT was negative for acute hemorrhagic stroke. 03/22: Remains intubated. Sedated with propofol. Easily arousable. Follows commands. 2D-echocardiographic interrogation was performed yesterday and revealed normal LVEF. Atrial fibrillation; therefore, no diastology. Mild mitral regurgitation. Severe LA dilatation. RV moderately dilated. Moderate tricuspid regurgitation. Estimated RVSP 51+ mmHg. IVC appeared dilated and did not change with respiration. No pericardial effusion. 03/23: Successfully extubated yesterday evening. On nasal cannula. CT a of the chest showed bilateral pleural effusions with associated compressive atelectasis. No evidence for pulmonary embolism. On heparin infusion for atrial fibrillation. 03/24: Patient was placed on BiPAP overnight, apparently for hypoxia. Chest x- ray shows persistent bilateral pleural effusions pulmonary edema. Still on heparin infusion for atrial fibrillation. The patient reports that she was taking Eliquis for atrial fibrillation." Review of systems relevant to events:: 03.25.2020: Had lengthy discussion with patient's daughters. They state that the patient has significant obesity and has had breathing issues associated with this. They do not know of any official diagnosis of obstructive sleep apnea or hypoventilation syndromes. Family has also noted that the patient has had difficulty swallowing in the last few weeks. When discussing her tremor on the right hand they stated that she was seen by a neurologist who stated that she did not have Parkinson's disease Reason for ICU Addmission:: Acute Respiratory Failure - Medications: Medications reviewed and adjusted accordingly: Yes Vasopressors:: none Sedation:: None Physical Exam Vital Signs: Temp Pulse Resp BP Pulse Ox 99.5 F 92 22 H 87/56 L 96 03/25/20 19:46 03/25/20 20:25 03/25/20 20:25 03/25/20 18:01 03/25/20 20:25 Intake & Output 03/24/20 03/25/20 03/26/20 06:59 06:59 06:59 Intake Total 748 634 240 Output Total 965 1565 270 Balance -217 -931 -30 Weight 116.7 kg 116.3 kg 116.3 kg Weight/Height Weight 116.3 kg Height 5 ft 6 in General appearance: PRESENT: no acute distress, hard of hearing, morbidly obese Exam: Elderly obese nontoxic chronically ill-appearing 84-year-old female no acute distress. BMI at 41 Head exam: PRESENT: atraumatic, normocephalic Eye exam: PRESENT: conjunctiva pink, EOMI, PERRLA. ABSENT: conjunctival injection, nystagmus, scleral icterus Mouth exam: PRESENT: dry mucosa, neck supple Teeth exam: PRESENT: edentulous Neck exam: ABSENT: carotid bruit, JVD, lymphadenopathy, thyromegaly Respiratory exam: PRESENT: clear to auscultation mary, unlabored. ABSENT: accessory muscle use, rales, rhonchi, wheezes Cardiovascular exam: PRESENT: irregular rhythm, RRR, +S1, +S2 Vascular exam: PRESENT: normal capillary refill. ABSENT: pallor GI/Abdominal exam: PRESENT: normal bowel sounds, soft. ABSENT: ascites, distended, guarding, mass, organolmegaly, rebound, tenderness Gentrourinary exam: PRESENT: indwelling catheter Extremities exam: ABSENT: pedal edema Musculoskeletal exam: ABSENT: deformity, dislocation Neurological exam: PRESENT: awake, oriented to person, oriented to place, oriented to time, oriented to situation, CN II-XII grossly intact, other - No focal motor weakness. Has slight tremor of the right arm. Psychiatric exam: PRESENT: flat affect Focused psych exam: ABSENT: pressured speech, psychomotor agitation, restlessness Skin exam: PRESENT: intact, normal color. ABSENT: cyanosis, erythema, jaundice, mottled, pallor, petechiae - Fleming type urinary catheter Laboratory/Radiographs Laboratory Results: 03/25/20 05:02 03/25/20 05:02 03/25/20 03/25/20 03/25/20 04:30 05:02 05:02 WBC 9.5 RBC 4.01 Hgb 12.5 Hct 37.2 MCV 93 MCH 31.1 MCHC 33.5 RDW 15.8 H Plt Count 155 Sodium 134.3 L Potassium 3.5 L Chloride 93 L Carbon Dioxide 36 H Anion Gap 5 BUN 25 H Creatinine 0.64 Est GFR ( Amer) > 60 Glucose 96 Calcium 8.3 L Urine Color YELLOW Urine Appearance CLEAR Urine pH 5.0 Ur Specific [place] 1.009 Urine Protein NEGATIVE Urine Glucose (UA) NEGATIVE Urine Ketones NEGATIVE Urine Blood NEGATIVE Urine Nitrite NEGATIVE Ur Leukocyte Esterase NEGATIVE Urine WBC (Auto) 1 Urine RBC (Auto) 0 03/21/20 03/21/20 03/21/20 03:05 03:05 06:20 Creatine Kinase 39 Troponin I 0.417 0.628 NT-Pro-B Natriuret Pep 04424 H 03/21/20 03/21/20 03/21/20 12:42 13:49 19:15 Creatine Kinase Troponin I Cancelled 0.706 0.672 NT-Pro-B Natriuret Pep 03/22/20 03/23/20 04:52 04:16 Creatine Kinase Troponin I NT-Pro-B Natriuret Pep 6820 H 3070 H Impressions: Head CT 03/21/20 00:00 IMPRESSION: No acute intracranial abnormality. Chest/Abdomen CTA 03/22/20 00:00 IMPRESSION: Bilateral pleural effusions with associated airspace disease, likely atelectasis in the lower lobes. There is no pulmonary embolus. There is no aortic aneurysm or dissection. Chest X-Ray 03/24/20 00:00 IMPRESSION: Interval line/tube modification. 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 Have ordered an ABG. I am suspicious that she has o besity hypoventilation syndrome. This may have been worsened by urinary tract infection. Given the neurotoxic effects of Levaquin I changed her to Rocephin today. We will order BiPAP for tonight as well. Continue to monitor closely in ICU. Patient has risk of decompensation. Her hypotension appears to be from dehydration and giving fluids to improve this. We will check a cortisol and if less than 25 she may need steroid supplementation. Ordered Midodrine if blood pressure remains low. Have ordered physical therapy and speech eval to rule out swallowing dysfunction. Given the tremor of her right arm I am concerned about progressive supranuclear palsy. Patient has poor prognosis given her obesity, age and multiple medical comorbidities Critical Time Critical Time (minutes): 55 Level of Care: ICU -: 1. The care of a critical patient is a dynamic process. This note is a warehouse representative synopsis but static in nature. The timeframe for treatments given in order is not necessarily the actual time these treatments may have been done. 2. This patient requires critical care secondary to ongoing requirements for therapy not offered or safe outside the critical care environment. Transfer to a lower level of care will result in altered life or limb morbidity and mortality. 3. Multidisciplinary rounds completed. 4. ABCDE bundle addressed.
[2020-03-25] MEDS ORDERED: DEXTROSE 50%-WATER 25 GM/50 ML DISP.SYRIN IV PRN ×2 (21:30)
[2020-03-25] MEDS ORDERED: DEXTROSE 40% GEL 15 GM TUBE PO PRN ×2 (21:30)
[2020-03-25] MEDS ORDERED: GLUCAGON,HUMAN RECOMB 1 MG INJ IM PRN (21:30)
[2020-03-25] MEDS: INSULIN REG, HUMAN 100 UNIT/ML 3 ML VIAL (PYX) SUBCUT SCH (22:37)
[2020-03-25] MEDS ORDERED: MEMANTINE HCL 10 MG TABLET ONE (23:09)
[2020-03-25] MEDS: DONEPEZIL HCL 5 MG TABLET PO SCH (23:36)
[2020-03-25] MEDS: MEMANTINE HCL 10 MG TABLET PO SCH (23:36)
[2020-03-26] MEDS: HYDROCORTISONE SOD SUCCINATE INJ/PF 100 MG/2 ML SDV IV SCH ×3 (01:50→17:20)
[2020-03-26] MEDS: ALBUTEROL SULFATE 0.083% NEB 2.5 MG/3 ML AMPUL NEB SCH ×4 (02:00→20:02)
[2020-03-26 04:49] LABS: HEMATOCRIT 31.4 % (36.0-47.0); HEMOGLOBIN 10.5 g/dL (12.0-15.5); MEAN CORPUSCULAR HEMOGLOBIN 31.1 pg (27.0-33.4); MEAN CORPUSCULAR HGB CONC 33.4 g/dL (32.0-36.0); MEAN CORPUSCULAR VOLUME 93 fl (80-97); PLATELET COUNT 139 10^3/uL (150-450); RED BLOOD COUNT 3.37 10^6/uL (3.72-5.28); RED CELL DISTRIBUTION WIDTH 15.6 % (11.5-14.0); WHITE BLOOD COUNT 7.5 10^3/uL (4.0-10.5)
[2020-03-26 05:01] LABS: ANION GAP 6 (5-19); BLOOD UREA NITROGEN 31 mg/dL (7-20); CALCIUM 8.2 mg/dL (8.4-10.2); CARBON DIOXIDE 34 mmol/L (22-30); CHLORIDE 93 mmol/L (98-107); GLUCOSE 124 mg/dL (75-110); PHOSPHORUS 3.4 mg/dL (2.5-4.5); POTASSIUM 3.3 mmol/L (3.6-5.0)
[2020-03-26 05:19] LABS: ABSOLUTE LYMPHOCYTES# (MANUAL) 0.2 10^3/uL (0.5-4.7); BASOPHILS % (MANUAL) 0 % (0-2); EOSINOPHILS % (MANUAL) 0 % (0-6); LYMPHOCYTES % (MANUAL) 2 % (13-45); MONOCYTES % (MANUAL) 0 % (3-13); SEGMENTED NEUTROPHILS % (MAN) 98 % (42-78); TOTAL CELLS COUNTED 100
[2020-03-26 05:20] LABS: TOXIC GRANULATION SLIGHT; TOXIC VACUOLATION PRESENT
[2020-03-26 05:21] LABS: ANISOCYTOSIS SLIGHT; OVALOCYTES SLIGHT; PLATELET COMMENT ADEQUATE; POIKILOCYTOSIS SLIGHT
[2020-03-26] MEDS: LEVOTHYROXINE SODIUM 0.112 MG TABLET PO SCH (06:05)
[2020-03-26 06:23] LABS: ARTERIAL BLOOD BASE EXCESS 9.1 mmol/L; ARTERIAL BLOOD HCO3 34.8 mmol/L (20-24); ARTERIAL BLOOD O2 SATURATION 90.5 % (94-98); ARTERIAL BLOOD PCO2 53.1 mmHg (35-45); ARTERIAL BLOOD PH 7.43 (7.35-7.45); ARTERIAL BLOOD PO2 58.1 mmHg (80-100); ARTERIAL BLOOD TOTAL CO2 36.4 mmol/L (21-25)
[2020-03-26 06:26] LABS: ARTERIAL BLOOD FIO2 30%
[2020-03-26] MEDS: INSULIN REG, HUMAN 100 UNIT/ML 3 ML VIAL (PYX) SUBCUT SCH ×4 (08:09→22:10)
[2020-03-26] MEDS: MAGNESIUM SULFATE/D5W 1 GM/100 ML RTUPB IV SCH ×3 (08:09→11:02)
--- NOTE | 2020-03-26 08:26 | RADIOLOGY REPORT (SQ) ---
EXAM DESCRIPTION: CHEST SINGLE VIEW IMAGES COMPLETED DATE/TIME: 03/26/2020 6:42 am REASON FOR STUDY: r/o new infiltrate COMPARISON: 03/24/2020 FINDINGS: Single-view chest AP portable upright. Improved overall. Persistent retrocardiac opacity and central vascular congestion but otherwise bett er aeration. No pneumothorax. Stable cardiomediastinal silhouette. TECHNICAL DOCUMENTATION: JOB ID: [id number] Reading location - IP/workstation name: [email or web address]
[2020-03-26] MEDS ORDERED: POTASSIUM CHLORIDE 10 MEQ TABLET.ER PO SCH (10:00)
[2020-03-26] MEDS: APIXABAN 2.5 MG TABLET PO SCH ×2 (10:26→17:21)
[2020-03-26] MEDS: MIDODRINE HCL 5 MG TABLET PO SCH ×3 (10:26→17:21)
[2020-03-26] MEDS: MAGNESIUM OXIDE 400 MG TABLET PO SCH ×2 (10:27→17:21)
[2020-03-26] MEDS: SERTRALINE HCL 50 MG TABLET PO SCH (10:27)
--- NOTE | 2020-03-26 13:39 | RADIOLOGY REPORT (SQ) ---
EXAM DESCRIPTION: VENOUS UNILATERAL UPPER IMAGES COMPLETED DATE/TIME: 03/26/2020 1:24 pm REASON FOR STUDY: Left arm swelling and pain COMPARISON: None. TECHNIQUE: Dynamic and static victoria scale and color images acquired of the left arm venous system. Se lected spectral images acquired with additional compression and augmentation maneuvers. The contralat eral subclavian vein and internal jugular vein were also imaged. Images stored on PACS. LIMITATIONS: None. FINDINGS: INTERNAL JUGULAR VEIN: Normal phasicity, compression, augmentation. No visualized echogeni c material on victoria scale. No defects on color images. SUBCLAVIAN VEIN: Normal compression, augmentation. No visualized echogenic material on victoria scale. No defects on color images. AXILLARY VEIN: Normal compression, augmentation. No visualized echogenic material on victoria scale. No d efects on color images. BRACHIAL VEIN: Normal compression, augmentation. No visualized echogenic material on victoria scale. No d efects on color images. BASILIC VEIN: Normal compression, augmentation. No visualized echogenic material on victoria scale. No de fects on color images. CEPHALIC VEIN: Normal compression, augmentation. No visualized echogenic material on victoria scale. No d efects on color images. OTHER: No other finding. CONTRALATERAL INTERNAL JUGULAR VEIN: Normal phasicity, compression and augmentation. No visualized echogenic material on victoria scale. No de fects on color images. IMPRESSION: NO EVIDENCE OF DVT OR SVT IN THE LEFT ARM. TECHNICAL DOCUMENTATION: JOB ID: [id number] 2010 [employer]- All Rights Reserved Reading location - IP/workstation name: [email or web address]
[2020-03-26] MEDS ORDERED: (PENDING PHARMACY ID) (Sertraline Hcl [Zoloft] 50 MG) PO SCH (14:15)
[2020-03-26] MEDS ORDERED: SERTRALINE HCL 50 MG TABLET PO SCH (15:15)
[2020-03-26] MEDS: CEFTRIAXONE 1 GM/D5W RTU 1 GM/50 ML RTUPB IV SCH (17:21)
--- NOTE | 2020-03-26 18:40 | PDOC CRITICAL CARE PROG REPORT ---
General Date:: 03/26/20 ICU Day:: 5 Hospital Day:: 5 Resuscitation Status: Full Code Medical Power of Protective Signal Repairer Helper: Daughters-Ruben Events in the past 12 to 24 Hours:: 03.26.2020: Patient continues to show steady improvement. She is more awake today. She was able to swallow appropriately. Speech evaluate her and found no significant swallowing issues. A somewhat modified diet because of chewing difficulty but no swallowing difficulty. Blood pressures have been improved with the addition of Solu-Cortef and Middaugh drain. Antihypertensive medications have been held. 03.25.2020: Patient extubated March 22 in the evening. She has remained off the ventilator. She is not complaining of any shortness of breath or chest pain. Had been diuresing and placed on albumin in the last 24 hours. During the afternoon nursing noted hypotension and this responded to albumin supplementation. From Previous notes, Dr. Denise: "03/21: Admitted from the emergency department with acute hypoxemic respiratory failure. Had agonal respirations and weak pulse at home. Intubated in the field. Hypotensive after ketamine, rocuronium and fentanyl for intubation. CT was negative for acute hemorrhagic stroke. 03/22: Remains intubated. Sedated with propofol. Easily arousable. Follows commands. 2D-echocardiographic interrogation was performed yesterday and revealed normal LVEF. Atrial fibrillation; therefore, no diastology. Mild mitral regurgitation. Severe LA dilatation. RV moderately dilated. Moderate tricuspid regurgitation. Estimated RVSP 51+ mmHg. IVC appeared dilated and did not change with respiration. No pericardial effusion. 03/23: Successfully extubated yesterday evening. On nasal cannula. CT a of the chest showed bilateral pleural effusions with associated compressive atelectasis. No evidence for pulmonary embolism. On heparin infusion for atrial fibrillation. 03/24: Patient was placed on BiPAP overnight, apparently for hypoxia. Chest x- ray shows persistent bilateral pleural effusions pulmonary edema. Still on heparin infusion for atrial fibrillation. The patient reports that she was taking Eliquis for atrial fibrillation." Review of systems relevant to events:: 03.26.2020: As noted above blood pressures have improved. Patient has no complaints. She tolerated physical therapy. DVT screen negative of left upper extremity 03.25.2020: Had lengthy discussion with patient's daughters. They state that the patient has significant obesity and has had breathing issues associated with this. They do not know of any official diagnosis of obstructive sleep apnea or hypoventilation syndromes. Family has also noted that the patient has had difficulty swallowing in the last few weeks. When discussing her tremor on the right hand they stated that she was seen by a neurologist who stated that she did not have Parkinson's disease Reason for ICU Addmission:: Acute Respiratory Failure - Medications: Medications reviewed and adjusted accordingly: Yes Vasopressors:: none Sedation:: None Physical Exam Vital Signs: Temp Pulse Resp BP Pulse Ox 98.4 F 86 23 H 128/78 H 96 03/26/20 16:00 03/26/20 16:00 03/26/20 18:01 03/26/20 18:01 03/26/20 18:01 Intake & Output 03/25/20 03/26/20 03/27/20 06:59 06:59 06:59 Intake Total 634 1090 200 Output Total 1565 540 475 Balance -931 550 -275 Weight 116.3 kg 118.8 kg Weight/Height Weight 118.8 kg Height 5 ft 6 in General appearance: PRESENT: no acute distress, morbidly obese Exam: Morbidly obese chronically ill-appearing 64-year-old female no active distress she is awake somewhat stoic but oriented Eye exam: PRESENT: EOMI, PERRLA. ABSENT: conjunctival injection, nystagmus, scleral icterus Mouth exam: PRESENT: dry mucosa, neck supple, tongue midline Teeth exam: PRESENT: edentulous Neck exam: ABSENT: carotid bruit, JVD, lymphadenopathy, meningismus, thyromegaly, tracheal deviation Respiratory exam: PRESENT: clear to auscultation mary, unlabored. ABSENT: accessory muscle use, rales, rhonchi, tachypnea, wheezes Cardiovascular exam: PRESENT: RRR, +S1, +S2. ABSENT: systolic murmur Vascular exam: PRESENT: normal capillary refill. ABSENT: pallor GI/Abdominal exam: PRESENT: normal bowel sounds, soft. ABSENT: ascites, distended, guarding, mass, organolmegaly, rebound, tenderness Rectal exam: PRESENT: deferred Gentrourinary exam: PRESENT: indwelling catheter Extremities exam: PRESENT: +1 edema - Left upper extremity.. ABSENT: joint swelling Musculoskeletal exam: ABSENT: deformity, dislocation Neurological exam: PRESENT: alert, oriented to person, oriented to place, oriented to time, CN II-XII grossly intact, other - Has bilateral tremor which does not cease with intention. No focal motor deficits but she is globally and symmetrically weak. He does have a slight facial droop on the right which she states is chronic. Psychiatric exam: PRESENT: flat affect Focused psych exam: ABSENT: pressured speech, psychomotor agitation, restlessness Skin exam: PRESENT: intact, normal color. ABSENT: cyanosis, erythema, jaundice, mottled - Fleming type urinary catheter Laboratory/Radiographs Laboratory Results: 03/26/20 04:29 03/26/20 04:29 03/25/20 03/26/20 03/26/20 20:13 04:29 04:29 WBC 7.5 RBC 3.37 L Hgb 10.5 L Hct 31.4 L MCV 93 MCH 31.1 MCHC 33.4 RDW 15.6 H Plt Count 139 L Seg Neutrophils % Not Reportable Carbonic Acid 1.85 H HCO3/H2CO3 Ratio 19:1 ABG pH 7.38 ABG pCO2 61.6 H ABG pO2 65.3 L ABG HCO3 35.5 H ABG O2 Saturation 91.8 L ABG Base Excess 8.7 FiO2 2 Sodium 133.2 L Potassium 3.3 L Chloride 93 L Carbon Dioxide 34 H Anion Gap 6 BUN 31 H Creatinine 0.88 Est GFR ( Amer) > 60 Glucose 124 H Calcium 8.2 L Phosphorus 3.4 Magnesium 1.7 Ammonia 03/26/20 03/26/20 04:29 06:02 WBC RBC Hgb Hct MCV MCH MCHC RDW Plt Count Seg Neutrophils % Carbonic Acid 1.60 H HCO3/H2CO3 Ratio 21:1 ABG pH 7.43 ABG pCO2 53.1 H ABG pO2 58.1 L ABG HCO3 34.8 H ABG O2 Saturation 90.5 L ABG Base Excess 9.1 FiO2 30% Sodium Potassium Chloride Carbon Dioxide Anion Gap BUN Creatinine Est GFR ( Amer) Glucose Calcium Phosphorus Magnesium Ammonia < 8.7 L 03/21/20 03:05 Blood Blood Culture - Final NO GROWTH IN 5 DAYS 03/21/20 03/21/20 03/21/20 03:05 03:05 06:20 Creatine Kinase 39 Troponin I 0.417 0.628 NT-Pro-B Natriuret Pep 22592 H 03/21/20 03/21/20 03/21/20 12:42 13:49 19:15 Creatine Kinase Troponin I Cancelled 0.706 0.672 NT-Pro-B Natriuret Pep 03/22/20 03/23/20 04:52 04:16 Creatine Kinase Troponin I NT-Pro-B Natriuret Pep 6820 H 3070 H Impressions: Head CT 03/21/20 00:00 IMPRESSION: No acute intracranial abnormality. Chest/Abdomen CTA 03/22/20 00:00 IMPRESSION: Bilateral pleural effusions with associated airspace disease, likely atelectasis in the lower lobes. There is no pulmonary embolus. There is no aortic aneurysm or dissection. Venous Doppler Study 03/26/20 00:00 IMPRESSION: NO EVIDENCE OF DVT OR SVT IN THE LEFT ARM. 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 She tolerated BiPAP and we would recommend and continue this at night. Does have a retrocardiac opacity with mild effusion but does not require drainage at this time. Continue antibiotics for 7 days for possible pneumonia. Infectious: We will continue Rocephin. Had been on for fluoroquinolone to Rocephin. Procalcitonin sent and if negative would discontinue antibiotics. Cardiac: Patient's blood pressure has improved. Would continue the Solu-Cortef and begin weaning in 48 hours. She is on Midodrine and this can be discontinued as her pressures improved. Her antihypertensive medications have been held. Hematologic: Patient is on oral anticoagulation with anti-factorXa. Follow for bleeding. Endocrine: Glucoses have improved with supplemental insulin. Continue to monitor and follow closely. Has relative adrenal insufficiency with a cortisol level of 15 and hypotension. Wean steroids to a diurnal pattern over the next 48 hours. Renal: Quiesced sent at this time. Diuresis discontinued Metabolic: Patient's electrolytes have been replaced. Continue to monitor closely. She does have hyponatremia which may be related to diuresis. Continue to monitor this. She is also on Zoloft which may be contributing to this. Alimentary: Tolerating diet. Has a slightly modified diet secondary to dental issues. Continue to monitor swallowing. Neurologic: We attempted to try the patient on her home dementia medication (Namzaric). It currently is not on formulary so a modified form of both drugs has been added. Family will need to bring in her normal medication if we are able to use it. Sedation: None Lines/Tubes: Peripheral IVs Other: DVT screen of the left upper extremity which is swollen was negative for DVT or SVT Patient to be transferred to intermediate care unit. Dr. Arnold has accepted care of the patient. 03.25.2020: Patient's respiratory failure has improved however I am concerned about her intermittent somnolence. Have ordered an ABG. I am suspicious that she has obesity hypoventilation syndrome. This may have been worsened by urinary tract infection. Given the neurotoxic effects of Levaquin I changed her to Rocephin today. We will order BiPAP for tonight as well. Continue to monitor closely in ICU. Patient has risk of decompensation. Her hypotension appears to be from dehydration and giving fluids to improve this. We will check a cortisol and if less than 25 she may need steroid supplementation. Ordered Midodrine if blood pressure remains low. Have ordered physical therapy and speech eval to rule out swallowing dysfunction. Given the tremor of her right arm I am concerned about progressive supranuclear palsy. Patient has poor prognosis given her obesity, age and multiple medical comorbidities Critical Time Critical Time (minutes): 0 - 22742 Level of Care: [facility] Anticipated discharge: SNF Within: within 48 hours -: 1. The care of a critical patient is a dynamic process. This note is a rep resentative synopsis but static in nature. The timeframe for treatments given in order is not necessarily the actual time these treatments may have been done. 2. This patient requires critical care secondary to ongoing requirements for therapy not offered or safe outside the critical care environment. Transfer to a lower level of care will result in altered life or limb morbidity and mortality. 3. Multidisciplinary rounds completed. 4. ABCDE bundle addressed.
[2020-03-26] MEDS: ACETAMINOPHEN 325 MG TABLET PO PRN (20:26)
[2020-03-26] MEDS ORDERED: (PENDING PHARMACY ID) (Memantine Hcl/Donepezil Hcl [Namzaric 28 Mg-10 Mg Capsule] 1 CAP) PO SCH (22:00)
[2020-03-26] MEDS: MEMANTINE HCL 10 MG TABLET PO SCH (23:36)
[2020-03-26] MEDS: ATORVASTATIN CALCIUM 40 MG TABLET PO SCH (23:37)
[2020-03-26] MEDS: DONEPEZIL HCL 5 MG TABLET PO SCH (23:37)
[2020-03-27] MEDS: HYDROCORTISONE SOD SUCCINATE INJ/PF 100 MG/2 ML SDV IV SCH ×2 (02:28→10:22)
[2020-03-27] MEDS: ALBUTEROL SULFATE 0.083% NEB 2.5 MG/3 ML AMPUL NEB SCH ×4 (02:38→20:12)
[2020-03-27 04:35] LABS: HEMATOCRIT 32.4 % (36.0-47.0); HEMOGLOBIN 10.8 g/dL (12.0-15.5); MEAN CORPUSCULAR HEMOGLOBIN 30.6 pg (27.0-33.4); MEAN CORPUSCULAR HGB CONC 33.3 g/dL (32.0-36.0); MEAN CORPUSCULAR VOLUME 92 fl (80-97); PLATELET COUNT 169 10^3/uL (150-450); RED BLOOD COUNT 3.53 10^6/uL (3.72-5.28); RED CELL DISTRIBUTION WIDTH 15.2 % (11.5-14.0); WHITE BLOOD COUNT 7.4 10^3/uL (4.0-10.5)
[2020-03-27 04:47] LABS: ANION GAP 5 (5-19); BLOOD UREA NITROGEN 43 mg/dL (7-20); CALCIUM 8.7 mg/dL (8.4-10.2); CARBON DIOXIDE 35 mmol/L (22-30); CHLORIDE 94 mmol/L (98-107); GLUCOSE 134 mg/dL (75-110); PHOSPHORUS 2.7 mg/dL (2.5-4.5); POTASSIUM 3.8 mmol/L (3.6-5.0)
[2020-03-27 04:54] LABS: ABSOLUTE LYMPHOCYTES# (MANUAL) 0.4 10^3/uL (0.5-4.7); ABSOLUTE MONOCYTES # (MANUAL) 0.3 10^3/uL (0.1-1.4); ANISOCYTOSIS SLIGHT; BASOPHILS % (MANUAL) 0 % (0-2); EOSINOPHILS % (MANUAL) 0 % (0-6); LYMPHOCYTES % (MANUAL) 5 % (13-45); MONOCYTES % (MANUAL) 4 % (3-13); SEGMENTED NEUTROPHILS % (MAN) 91 % (42-78); TOTAL CELLS COUNTED 100
[2020-03-27 04:55] LABS: PLATELET COMMENT ADEQUATE
[2020-03-27 04:56] LABS: OVALOCYTES SLIGHT
[2020-03-27] MEDS: LEVOTHYROXINE SODIUM 0.112 MG TABLET PO SCH (05:47)
[2020-03-27] MEDS: APIXABAN 2.5 MG TABLET PO SCH (10:21)
[2020-03-27] MEDS: SERTRALINE HCL 50 MG TABLET PO SCH (10:21)
[2020-03-27] MEDS: MAGNESIUM OXIDE 400 MG TABLET PO SCH ×2 (10:21→18:40)
[2020-03-27] MEDS: MIDODRINE HCL 5 MG TABLET PO SCH ×2 (10:21→14:35)
[2020-03-27] MEDS: INSULIN REG, HUMAN 100 UNIT/ML 3 ML VIAL (PYX) SUBCUT SCH ×4 (10:22→22:15)
[2020-03-27] MEDS ORDERED: APIXABAN 2.5 MG TABLET PO SCH (16:15)
[2020-03-27] MEDS: APIXABAN 5 MG TABLET PO SCH (18:40)
[2020-03-27] MEDS: CEFTRIAXONE 1 GM/D5W RTU 1 GM/50 ML RTUPB IV SCH (18:41)
--- NOTE | 2020-03-27 19:30 | PDOC PROGRESS REPORT ---
Subjective Progress Note for:: 03/27/20 Subjective:: Patient was transferred from ICU to IMCU today she was intubated,, she had acute respiratory failure, the cause of clinical condition was not clear, she was treated with various medications including hydrocortisone, midodrine, I do not see indication for these 2 medications ,to be discontinued. 2D echo was done ejection fraction of left ventricle preserved, diastolic function could not be assessed because of chronic A. fib. She continues to require BiPAP Reason For Visit: RESPIRATORY ARREST Physical Exam Vital Signs: Temp Pulse Resp BP Pulse Ox 98.3 F 85 16 127/88 H 94 03/27/20 16:29 03/27/20 16:29 03/27/20 16:37 03/27/20 16:29 03/27/20 16:37 Intake & Output 03/26/20 03/27/20 03/28/20 06:59 06:59 06:59 Intake Total 1090 500 530 Output Total 540 980 350 Balance 550 -480 180 Weight 118.8 kg 117.8 kg General appearance: PRESENT: no acute distress Eye exam: PRESENT: PERRLA Respiratory exam: PRESENT: clear to auscultation mary Cardiovascular exam: PRESENT: +S1, +S2 GI/Abdominal exam: PRESENT: soft Neurological exam: PRESENT: alert Results Laboratory Results: 03/27/20 04:13 03/27/20 04:13 03/27/20 03/27/20 04:13 04:13 WBC 7.4 RBC 3.53 L Hgb 10.8 L Hct 32.4 L MCV 92 MCH 30.6 MCHC 33.3 RDW 15.2 H Plt Count 169 Seg Neutrophils % Not Reportable Sodium 134.3 L Potassium 3.8 Chloride 94 L Carbon Dioxide 35 H Anion Gap 5 BUN 43 H Creatinine 1.06 Est GFR ( Amer) > 60 Glucose 134 H Calcium 8.7 Phosphorus 2.7 Magnesium 2.6 H 03/21/20 03/21/20 03/21/20 03:05 03:05 06:20 Creatine Kinase 39 Troponin I 0.417 0.628 NT-Pro-B Natriuret Pep 33198 H 03/21/20 03/21/20 03/21/20 12:42 13:49 19:15 Creatine Kinase Troponin I Cancelled 0.706 0.672 NT-Pro-B Natriuret Pep 03/22/20 03/23/20 04:52 04:16 Creatine Kinase Troponin I NT-Pro-B Natriuret Pep 6820 H 3070 H Impressions: Head CT 03/21/20 00:00 IMPRESSION: No acute intracranial abnormality. Chest/Abdomen CTA 03/22/20 00:00 IMPRESSION: Bilateral pleural effusions with associated airspace disease, likely atelectasis in the lower lobes. There is no pulmonary embolus. There is no aortic aneurysm or dissection. Venous Doppler Study 03/26/20 00:00 IMPRESSION: NO EVIDENCE OF DVT OR SVT IN THE LEFT ARM. Assessment & Plan - Diagnosis (1) Acute respiratory failure with hypoxia Is this a current diagnosis for this admission?: Yes Plan: Continue BiPAP (2) Morbid (severe) obesity with alveolar hypoventilation Is this a current diagnosis for this admission?: Yes Plan: Continue BiPAP (3) Metabolic encephalopathy Is this a current diagnosis for this admission?: Yes (4) Other hypotension Is this a current diagnosis for this admission?: Yes Plan: Discontinue hydrocortisone, discontinue midodrine, no indication for this medications, no history of adrenal insufficiency - Time Time Spent with patient: 35 or more minutes Level of Care: IMCU - Plan Summary Plan Summary: Chart was reviewed, medication adjusted
[2020-03-27] MEDS: DONEPEZIL HCL 5 MG TABLET PO SCH (22:15)
[2020-03-27] MEDS: MEMANTINE HCL 10 MG TABLET PO SCH (22:15)
[2020-03-27] MEDS: ATORVASTATIN CALCIUM 40 MG TABLET PO SCH (22:15)
[2020-03-28] MEDS: ALBUTEROL SULFATE 0.083% NEB 2.5 MG/3 ML AMPUL NEB SCH ×4 (02:18→20:27)
[2020-03-28] MEDS: LEVOTHYROXINE SODIUM 0.112 MG TABLET PO SCH (06:16)
[2020-03-28 10:31] LABS: ABSOLUTE LYMPHOCYTES (AUTO) 0.9 10^3/uL (0.5-4.7); ABSOLUTE MONOCYTES (AUTO) 0.7 10^3/uL (0.1-1.4); ABSOLUTE NEUT (AUTO) 4.2 10^3/uL (1.7-8.2); BASOPHILS % (AUTO) 0.1 % (0-2); EOSINOPHILS % (AUTO) 0.4 % (0-6); HEMATOCRIT 34.7 % (36.0-47.0); HEMOGLOBIN 11.5 g/dL (12.0-15.5); LYMPHOCYTES % (AUTO) 15.2 % (13-45); MEAN CORPUSCULAR HEMOGLOBIN 30.7 pg (27.0-33.4); MEAN CORPUSCULAR HGB CONC 33.3 g/dL (32.0-36.0); MEAN CORPUSCULAR VOLUME 92 fl (80-97); MONOCYTES % (AUTO) 12.4 % (3-13); PLATELET COUNT 192 10^3/uL (150-450); RED BLOOD COUNT 3.76 10^6/uL (3.72-5.28); RED CELL DISTRIBUTION WIDTH 15.3 % (11.5-14.0); SEGMENTED NEUTROPHILS % (AUTO) 71.9 % (42-78); TOTAL CELLS COUNTED % (AUTO) 100 %; WHITE BLOOD COUNT 5.9 10^3/uL (4.0-10.5)
[2020-03-28] MEDS: INSULIN REG, HUMAN 100 UNIT/ML 3 ML VIAL (PYX) SUBCUT SCH ×4 (10:33→21:56)
[2020-03-28] MEDS: MAGNESIUM OXIDE 400 MG TABLET PO SCH ×2 (10:34→18:22)
[2020-03-28] MEDS: SERTRALINE HCL 50 MG TABLET PO SCH (10:34)
[2020-03-28] MEDS: APIXABAN 5 MG TABLET PO SCH ×2 (10:34→18:22)
[2020-03-28] MEDS: ACETAMINOPHEN 325 MG TABLET PO PRN (10:37)
[2020-03-28 10:54] LABS: ALBUMIN 2.8 g/dL (3.5-5.0); ALKALINE PHOSPHATASE 57 U/L (38-126); ANION GAP 9 (5-19); ASPARTATE AMINO TRANSFERASE 39 U/L (14-36); BILIRUBIN,DIRECT 0.1 mg/dL (0.0-0.4); BILIRUBIN,TOTAL 0.4 mg/dL (0.2-1.3); BLOOD UREA NITROGEN 46 mg/dL (7-20); CALCIUM 8.6 mg/dL (8.4-10.2); CARBON DIOXIDE 32 mmol/L (22-30); CHLORIDE 93 mmol/L (98-107); GLUCOSE 92 mg/dL (75-110); POTASSIUM 3.6 mmol/L (3.6-5.0); TOTAL PROTEIN 5.3 g/dL (6.3-8.2)
[2020-03-28] MEDS: CEFTRIAXONE 1 GM/D5W RTU 1 GM/50 ML RTUPB IV SCH (18:22)
[2020-03-28] MEDS: DONEPEZIL HCL 5 MG TABLET PO SCH (21:55)
[2020-03-28] MEDS: ATORVASTATIN CALCIUM 40 MG TABLET PO SCH (21:55)
[2020-03-28] MEDS: MEMANTINE HCL 10 MG TABLET PO SCH (21:55)
--- NOTE | 2020-03-28 22:03 | PDOC PROGRESS REPORT ---
Subjective Progress Note for:: 03/28/20 Subjective:: Patient seen by the bedside, she continues to require a lot of oxygen Reason For Visit: RESPIRATORY ARREST Physical Exam Vital Signs: Temp Pulse Resp BP Pulse Ox 98.8 F 89 20 115/74 99 03/28/20 19:46 03/28/20 19:46 03/28/20 19:46 03/28/20 19:46 03/28/20 19:46 Intake & Output 03/27/20 03/28/20 03/29/20 06:59 06:59 06:59 Intake Total 500 780 648 Output Total 980 725 750 Balance -480 55 -102 Weight 117.8 kg 117.4 kg General appearance: PRESENT: no acute distress Eye exam: PRESENT: PERRLA Respiratory exam: PRESENT: clear to auscultation mary Cardiovascular exam: PRESENT: +S1, +S2 GI/Abdominal exam: PRESENT: soft Neurological exam: PRESENT: alert Results Laboratory Results: 03/28/20 09:41 03/28/20 09:41 03/28/20 03/28/20 09:41 09:41 WBC 5.9 RBC 3.76 Hgb 11.5 L Hct 34.7 L MCV 92 MCH 30.7 MCHC 33.3 RDW 15.3 H Plt Count 192 Seg Neutrophils % 71.9 Sodium 134.2 L Potassium 3.6 Chloride 93 L Carbon Dioxide 32 H Anion Gap 9 BUN 46 H Creatinine 1.09 Est GFR ( Amer) 58 L Glucose 92 Calcium 8.6 Total Bilirubin 0.4 AST 39 H Alkaline Phosphatase 57 Total Protein 5.3 L Albumin 2.8 L 03/21/20 03/21/20 03/21/20 03:05 03:05 06:20 Creatine Kinase 39 Troponin I 0.417 0.628 NT-Pro-B Natriuret Pep 17549 H 03/21/20 03/21/20 03/21/20 12:42 13:49 19:15 Creatine Kinase Troponin I Cancelled 0.706 0.672 NT-Pro-B Natriuret Pep 03/22/20 03/23/20 04:52 04:16 Creatine Kinase Troponin I NT-Pro-B Natriuret Pep 6820 H 3070 H Impressions: Head CT 03/21/20 00:00 IMPRESSION: No acute intracranial abnormality. Chest/Abdomen CTA 03/22/20 00:00 IMPRESSION: Bilateral pleural effusions with associated airspace disease, likely atelectasis in the lower lobes. There is no pulmonary embolus. There is no aortic aneurysm or dissection. Venous Doppler Study 03/26/20 00:00 IMPRESSION: NO EVIDENCE OF DVT OR SVT IN THE LEFT ARM. Assessment & Plan - Diagnosis (1) Acute respiratory failure with hypoxia Is this a current diagnosis for this admission?: Yes Plan: Continue BiPAP (2) Morbid (severe) obesity with alveolar hypoventilation Is this a current diagnosis for this admission?: Yes (3) Metabolic encephalopathy Is this a current diagnosis for this admission?: Yes (4) Other hypotension Is this a current diagnosis for this admission?: Yes Plan: resolved - Time Time Spent with patient: 25-34 minutes Level of Care: IMCU
[2020-03-29] MEDS: ACETAMINOPHEN 325 MG TABLET PO PRN ×2 (02:07→11:01)
[2020-03-29] MEDS: ALBUTEROL SULFATE 0.083% NEB 2.5 MG/3 ML AMPUL NEB SCH ×4 (02:14→20:39)
[2020-03-29] MEDS: LEVOTHYROXINE SODIUM 0.112 MG TABLET PO SCH (06:29)
[2020-03-29 06:37] LABS: ABSOLUTE EOSINOPHILS # (AUTO) 0.1 10^3/uL (0.0-0.6); ABSOLUTE LYMPHOCYTES (AUTO) 0.7 10^3/uL (0.5-4.7); ABSOLUTE MONOCYTES (AUTO) 0.5 10^3/uL (0.1-1.4); ABSOLUTE NEUT (AUTO) 2.6 10^3/uL (1.7-8.2); BASOPHILS % (AUTO) 0.3 % (0-2); EOSINOPHILS % (AUTO) 2.9 % (0-6); HEMATOCRIT 33.5 % (36.0-47.0); HEMOGLOBIN 11.1 g/dL (12.0-15.5); LYMPHOCYTES % (AUTO) 16.9 % (13-45); MEAN CORPUSCULAR HEMOGLOBIN 30.4 pg (27.0-33.4); MEAN CORPUSCULAR HGB CONC 33.1 g/dL (32.0-36.0); MEAN CORPUSCULAR VOLUME 92 fl (80-97); MONOCYTES % (AUTO) 14.1 % (3-13); PLATELET COUNT 171 10^3/uL (150-450); RED BLOOD COUNT 3.65 10^6/uL (3.72-5.28); RED CELL DISTRIBUTION WIDTH 15.6 % (11.5-14.0); SEGMENTED NEUTROPHILS % (AUTO) 65.8 % (42-78); TOTAL CELLS COUNTED % (AUTO) 100 %; WHITE BLOOD COUNT 3.9 10^3/uL (4.0-10.5)
[2020-03-29] MEDS: APIXABAN 5 MG TABLET PO SCH ×2 (10:56→17:29)
[2020-03-29] MEDS: SERTRALINE HCL 50 MG TABLET PO SCH (10:56)
[2020-03-29] MEDS: MAGNESIUM OXIDE 400 MG TABLET PO SCH ×2 (10:56→17:29)
[2020-03-29] MEDS: INSULIN REG, HUMAN 100 UNIT/ML 3 ML VIAL (PYX) SUBCUT SCH ×4 (11:13→22:27)
[2020-03-29] MEDS: CEFTRIAXONE 1 GM/D5W RTU 1 GM/50 ML RTUPB IV SCH (17:28)
--- NOTE | 2020-03-29 19:11 | PDOC PROGRESS REPORT ---
Subjective Progress Note for:: 03/29/20 Subjective:: Patient seen by the bedside, complains of insomnia, Patient will required rehabilitation and physical therapy, She is very deconditioned Reason For Visit: RESPIRATORY ARREST Physical Exam Vital Signs: Temp Pulse Resp BP Pulse Ox 97.9 F 86 16 128/65 H 94 03/29/20 17:09 03/29/20 17:09 03/29/20 17:09 03/29/20 17:09 03/29/20 17:09 Intake & Output 03/28/20 03/29/20 03/30/20 06:59 06:59 06:59 Intake Total 846 752 8578 Output Total 725 1500 600 Balance 55 -612 475 Weight 117.4 kg 124.1 kg General appearance: PRESENT: no acute distress Eye exam: PRESENT: PERRLA Respiratory exam: PRESENT: clear to auscultation mary Cardiovascular exam: PRESENT: +S1, +S2 GI/Abdominal exam: PRESENT: soft Neurological exam: PRESENT: alert Results Laboratory Results: 03/29/20 06:01 03/28/20 09:41 03/29/20 06:01 WBC 3.9 L RBC 3.65 L Hgb 11.1 L Hct 33.5 L MCV 92 MCH 30.4 MCHC 33.1 RDW 15.6 H Plt Count 171 Seg Neutrophils % 65.8 03/21/20 03/21/20 03/21/20 03:05 03:05 06:20 Creatine Kinase 39 Troponin I 0.417 0.628 NT-Pro-B Natriuret Pep 74277 H 03/21/20 03/21/20 03/21/20 12:42 13:49 19:15 Creatine Kinase Troponin I Cancelled 0.706 0.672 NT-Pro-B Natriuret Pep 03/22/20 03/23/20 04:52 04:16 Creatine Kinase Troponin I NT-Pro-B Natriuret Pep 6820 H 3070 H Impressions: Head CT 03/21/20 00:00 IMPRESSION: No acute intracranial abnormality. Chest/Abdomen CTA 03/22/20 00:00 IMPRESSION: Bilateral pleural effusions with associated airspace disease, likely atelectasis in the lower lobes. There is no pulmonary embolus. There is no aortic aneurysm or dissection. Venous Doppler Study 03/26/20 00:00 IMPRESSION: NO EVIDENCE OF DVT OR SVT IN THE LEFT ARM. Assessment & Plan - Diagnosis (1) Acute respiratory failure with hypoxia Is this a current diagnosis for this admission?: Yes Plan: Patient still on oxygen nasal cannula, she probably has sleep apnea, she was supposed to have outpatient sleep study but never done (2) Morbid (severe) obesity with alveolar hypoventilation Is this a current diagnosis for this admission?: Yes (3) Metabolic encephalopathy Is this a current diagnosis for this admission?: Yes (4) Other hypotension Is this a current diagnosis for this admission?: Yes Plan: This is resolved - Time Time Spent with patient: 25-34 minutes Level of Care: IMCU
[2020-03-29] MEDS: ATORVASTATIN CALCIUM 40 MG TABLET PO SCH (22:29)
[2020-03-29] MEDS: MEMANTINE HCL 10 MG TABLET PO SCH (22:29)
[2020-03-29] MEDS: DONEPEZIL HCL 5 MG TABLET PO SCH (22:30)
[2020-03-30] MEDS: ALBUTEROL SULFATE 0.083% NEB 2.5 MG/3 ML AMPUL NEB SCH ×4 (01:35→20:32)
[2020-03-30] MEDS: LEVOTHYROXINE SODIUM 0.112 MG TABLET PO SCH (05:55)
[2020-03-30] MEDS: INSULIN REG, HUMAN 100 UNIT/ML 3 ML VIAL (PYX) SUBCUT SCH ×2 (09:36→14:26)
[2020-03-30] MEDS: APIXABAN 5 MG TABLET PO SCH ×2 (09:44→17:19)
[2020-03-30] MEDS: MAGNESIUM OXIDE 400 MG TABLET PO SCH ×2 (09:45→17:14)
[2020-03-30] MEDS: SERTRALINE HCL 50 MG TABLET PO SCH (09:45)
[2020-03-30] MEDS: ACETAMINOPHEN 325 MG TABLET PO PRN ×2 (14:29→21:05)
[2020-03-30] MEDS: CEFTRIAXONE 1 GM/D5W RTU 1 GM/50 ML RTUPB IV SCH (17:19)
--- NOTE | 2020-03-30 18:13 | PDOC PROGRESS REPORT ---
Subjective Progress Note for:: 03/30/20 Subjective:: Patient is alert, plan is to get her transferred to rehab Reason For Visit: RESPIRATORY ARREST Physical Exam Vital Signs: Temp Pulse Resp BP Pulse Ox 98.1 F 91 16 135/88 H 95 03/30/20 07:51 03/30/20 14:19 03/30/20 14:19 03/30/20 07:51 03/30/20 16:50 Intake & Output 03/29/20 03/30/20 03/31/20 06:59 06:59 06:59 Intake Total 888 1315 Output Total 1500 2325 Balance -612 -1010 Weight 124.1 kg 122.2 kg General appearance: PRESENT: no acute distress Eye exam: PRESENT: PERRLA Respiratory exam: PRESENT: clear to auscultation mary Cardiovascular exam: PRESENT: +S1, +S2 GI/Abdominal exam: PRESENT: soft Neurological exam: PRESENT: alert Results Laboratory Results: 03/29/20 06:01 03/28/20 09:41 03/21/20 03/21/20 03/21/20 03:05 03:05 06:20 Creatine Kinase 39 Troponin I 0.417 0.628 NT-Pro-B Natriuret Pep 82388 H 03/21/20 03/21/20 03/21/20 12:42 13:49 19:15 Creatine Kinase Troponin I Cancelled 0.706 0.672 NT-Pro-B Natriuret Pep 03/22/20 03/23/20 04:52 04:16 Creatine Kinase Troponin I NT-Pro-B Natriuret Pep 6820 H 3070 H Impressions: Head CT 03/21/20 00:00 IMPRESSION: No acute intracranial abnormality. Chest/Abdomen CTA 03/22/20 00:00 IMPRESSION: Bilateral pleural effusions with associated airspace disease, li erinn atelectasis in the lower lobes. There is no pulmonary embolus. There is no aortic aneurysm or dissection. Venous Doppler Study 03/26/20 00:00 IMPRESSION: NO EVIDENCE OF DVT OR SVT IN THE LEFT ARM. Assessment & Plan - Diagnosis (1) Acute respiratory failure with hypoxia Is this a current diagnosis for this admission?: Yes (2) Morbid (severe) obesity with alveolar hypoventilation Is this a current diagnosis for this admission?: Yes (3) Metabolic encephalopathy Is this a current diagnosis for this admission?: Yes (4) Other hypotension Is this a current diagnosis for this admission?: Yes - Time Time Spent with patient: 25-34 minutes Level of Care: IMCU
[2020-03-30 19:13] LABS: ABSOLUTE EOSINOPHILS # (AUTO) 0.2 10^3/uL (0.0-0.6); ABSOLUTE LYMPHOCYTES (AUTO) 0.6 10^3/uL (0.5-4.7); ABSOLUTE MONOCYTES (AUTO) 0.5 10^3/uL (0.1-1.4); ABSOLUTE NEUT (AUTO) 3.7 10^3/uL (1.7-8.2); BASOPHILS % (AUTO) 0.2 % (0-2); EOSINOPHILS % (AUTO) 3.8 % (0-6); HEMATOCRIT 34.5 % (36.0-47.0); HEMOGLOBIN 11.5 g/dL (12.0-15.5); LYMPHOCYTES % (AUTO) 12.7 % (13-45); MEAN CORPUSCULAR HEMOGLOBIN 30.4 pg (27.0-33.4); MEAN CORPUSCULAR HGB CONC 33.2 g/dL (32.0-36.0); MEAN CORPUSCULAR VOLUME 92 fl (80-97); MONOCYTES % (AUTO) 9.8 % (3-13); PLATELET COUNT 176 10^3/uL (150-450); RED BLOOD COUNT 3.78 10^6/uL (3.72-5.28); RED CELL DISTRIBUTION WIDTH 15.5 % (11.5-14.0); SEGMENTED NEUTROPHILS % (AUTO) 73.5 % (42-78); TOTAL CELLS COUNTED % (AUTO) 100 %
[2020-03-30 19:31] LABS: ALBUMIN 2.6 g/dL (3.5-5.0); ALKALINE PHOSPHATASE 56 U/L (38-126); ASPARTATE AMINO TRANSFERASE 31 U/L (14-36); BILIRUBIN,TOTAL 0.5 mg/dL (0.2-1.3); BLOOD UREA NITROGEN 28 mg/dL (7-20); CALCIUM 8.5 mg/dL (8.4-10.2); CARBON DIOXIDE 38 mmol/L (22-30); CHLORIDE 95 mmol/L (98-107); GLUCOSE 111 mg/dL (75-110); POTASSIUM 4.2 mmol/L (3.6-5.0); TOTAL PROTEIN 5.3 g/dL (6.3-8.2)
[2020-03-30 19:36] LABS: ANION GAP 2 (5-19)
--- NOTE | 2020-03-30 20:07 | RADIOLOGY REPORT (SQ) ---
EXAM DESCRIPTION: CHEST SINGLE VIEW IMAGES COMPLETED DATE/TIME: 03/30/2020 5:37 pm REASON FOR STUDY: pneumonia COMPARISON: 03/26/2020. CT angiography chest, 03/22/2020. EXAM PARAMETERS: NUMBER OF VIEWS: One view. TECHNIQUE: Single frontal radiographic view of the chest acquired. RADIATION DOSE: NA LIMITATIONS: None. FINDINGS: LUNGS AND PLEURA: Small bilateral pleural effusions with compressive atelectasis at the gita ng bases, not significantly changed. No new consolidation or pneumothorax. MEDIASTINUM AND HILAR STRUCTURES: No masses. Contour normal. HEART AND VASCULAR STRUCTURES: Moderate cardiomegaly. No pulmonary vascular congestion. BONES: No acute findings. HARDWARE: None in the chest. OTHER: No other significant finding. IMPRESSION: No significant interval change. Small bilateral pleural effusions with compressive atel ectasis of the lung bases. TECHNICAL DOCUMENTATION: JOB ID: [id number] 2010 [employer]- All Rights Reserved Reading location - IP/workstation name: [email or web address]
[2020-03-30] MEDS: ATORVASTATIN CALCIUM 40 MG TABLET PO SCH (21:05)
[2020-03-30] MEDS: DONEPEZIL HCL 5 MG TABLET PO SCH (21:05)
[2020-03-30] MEDS: MEMANTINE HCL 10 MG TABLET PO SCH (21:05)
[2020-03-31] MEDS: ACETAMINOPHEN 325 MG TABLET PO PRN ×5 (02:11→21:57)
[2020-03-31] MEDS: ALBUTEROL SULFATE 0.083% NEB 2.5 MG/3 ML AMPUL NEB SCH ×2 (02:13→08:30)
[2020-03-31] MEDS: LEVOTHYROXINE SODIUM 0.112 MG TABLET PO SCH (05:06)
[2020-03-31] MEDS: SERTRALINE HCL 50 MG TABLET PO SCH (11:06)
[2020-03-31] MEDS: MAGNESIUM OXIDE 400 MG TABLET PO SCH ×2 (11:07→17:35)
[2020-03-31] MEDS: APIXABAN 5 MG TABLET PO SCH ×2 (11:07→17:34)
[2020-03-31] MEDS ORDERED: ALBUTEROL SULFATE 0.083% NEB 2.5 MG/3 ML AMPUL NEB SCH (14:00)
[2020-03-31] MEDS: LEVALBUTEROL HCL NEB 0.63 MG/3 ML AMPUL NEB SCH ×2 (14:18→20:51)
[2020-03-31] MEDS: CEFTRIAXONE 1 GM/D5W RTU 1 GM/50 ML RTUPB IV SCH (17:35)
--- NOTE | 2020-03-31 19:21 | PDOC PROGRESS REPORT ---
Subjective Progress Note for:: 03/31/20 Subjective:: Patient is extremely deconditioned, she has obstructive sleep apnea, she will need sleep study to document obstructive sleep apnea for insurance to pay for the BiPAP that she will need, she may need to have BiPAP when she goes to rehab for physical therapy Reason For Visit: RESPIRATORY ARREST Physical Exam Vital Signs: Temp Pulse Resp BP Pulse Ox 97.9 F 103 H 18 117/69 94 03/31/20 15:41 03/31/20 15:41 03/31/20 15:41 03/31/20 15:41 03/31/20 16:26 Intake & Output 03/30/20 03/31/20 04/01/20 06:59 06:59 06:59 Intake Total 1315 1696 286 Output Total 2325 1680 Balance -1010 16 286 Weight 122.2 kg 123.4 kg General appearance: PRESENT: no acute distress Eye exam: PRESENT: PERRLA Respiratory exam: PRESENT: clear to auscultation mary Cardiovascular exam: PRESENT: +S1, +S2 Neurological exam: PRESENT: alert, CN II-XII grossly intact Results Laboratory Results: 03/30/20 19:00 03/30/20 19:00 03/30/20 19:00 Sodium 135.2 L Potassium 4.2 Chloride 95 L Carbon Dioxide 38 H Anion Gap 2 L BUN 28 H Creatinine 0.57 Est GFR ( Amer) > 60 Glucose 111 H Calcium 8.5 Total Bilirubin 0.5 AST 31 Alkaline Phosphatase 56 Total Protein 5.3 L Albumin 2.6 L 03/21/20 03/21/20 03/21/20 03:05 03:05 06:20 Creatine Kinase 39 Troponin I 0.417 0.628 NT-Pro-B Natriuret Pep 40331 H 03/21/20 03/21/20 03/21/20 12:42 13:49 19:15 Creatine Kinase Troponin I Cancelled 0.706 0.672 NT-Pro-B Natriuret Pep 03/22/20 03/23/20 04:52 04:16 Creatine Kinase Troponin I NT-Pro-B Natriuret Pep 6820 H 3070 H Impressions: Head CT 03/21/20 00:00 IMPRESSION: No acute intracranial abnormality. Chest/Abdomen CTA 03/22/20 00:00 IMPRESSION: Bilateral pleural effusions with associated airspace disease, likely atelectasis in the lower lobes. There is no pulmonary embolus. There is no aortic aneurysm or dissection. Venous Doppler Study 03/26/20 00:00 IMPRESSION: NO EVIDENCE OF DVT OR SVT IN THE LEFT ARM. Chest X-Ray 03/30/20 00:00 IMPRESSION: No significant interval change. Small bilateral pleural effusions with compressive atelectasis of the lung bases. Assessment & Plan - Diagnosis (1) Acute respiratory failure with hypoxia Is this a current diagnosis for this admission?: Yes (2) Morbid (severe) obesity with alveolar hypoventilation Is this a current diagnosis for this admission?: Yes (3) Metabolic encephalopathy Is this a current diagnosis for this admission?: Yes (4) Other hypotension Is this a current diagnosis for this admission?: Yes - Time Time Spent with patient: 15-24 minutes Level of Care: IMCU
[2020-03-31] MEDS: ATORVASTATIN CALCIUM 40 MG TABLET PO SCH (21:55)
[2020-03-31] MEDS: DONEPEZIL HCL 5 MG TABLET PO SCH (21:55)
[2020-03-31] MEDS: MEMANTINE HCL 10 MG TABLET PO SCH (21:55)
[2020-04-01] MEDS: LEVOTHYROXINE SODIUM 0.112 MG TABLET PO SCH (06:19)
[2020-04-01] MEDS: LEVALBUTEROL HCL NEB 0.63 MG/3 ML AMPUL NEB SCH ×3 (07:43→20:38)
[2020-04-01] MEDS: SERTRALINE HCL 50 MG TABLET PO SCH (09:57)
[2020-04-01] MEDS: MAGNESIUM OXIDE 400 MG TABLET PO SCH ×2 (09:57→18:32)
[2020-04-01] MEDS: APIXABAN 5 MG TABLET PO SCH ×2 (09:57→18:35)
[2020-04-01] MEDS: ACETAMINOPHEN 325 MG TABLET PO PRN ×2 (13:53→19:50)
[2020-04-01 19:25] LABS: ABSOLUTE EOSINOPHILS # (AUTO) 0.3 10^3/uL (0.0-0.6); ABSOLUTE LYMPHOCYTES (AUTO) 0.7 10^3/uL (0.5-4.7); ABSOLUTE MONOCYTES (AUTO) 0.5 10^3/uL (0.1-1.4); ABSOLUTE NEUT (AUTO) 3.8 10^3/uL (1.7-8.2); BASOPHILS % (AUTO) 0.6 % (0-2); EOSINOPHILS % (AUTO) 6.3 % (0-6); HEMATOCRIT 35.5 % (36.0-47.0); HEMOGLOBIN 11.8 g/dL (12.0-15.5); LYMPHOCYTES % (AUTO) 12.5 % (13-45); MEAN CORPUSCULAR HEMOGLOBIN 30.5 pg (27.0-33.4); MEAN CORPUSCULAR HGB CONC 33.1 g/dL (32.0-36.0); MEAN CORPUSCULAR VOLUME 92 fl (80-97); MONOCYTES % (AUTO) 9.4 % (3-13); PLATELET COUNT 189 10^3/uL (150-450); RED BLOOD COUNT 3.87 10^6/uL (3.72-5.28); RED CELL DISTRIBUTION WIDTH 15.6 % (11.5-14.0); SEGMENTED NEUTROPHILS % (AUTO) 71.2 % (42-78); TOTAL CELLS COUNTED % (AUTO) 100 %; WHITE BLOOD COUNT 5.4 10^3/uL (4.0-10.5)
[2020-04-01 19:46] LABS: ALBUMIN 2.7 g/dL (3.5-5.0); ALKALINE PHOSPHATASE 64 U/L (38-126); ASPARTATE AMINO TRANSFERASE 37 U/L (14-36); BILIRUBIN,TOTAL 0.5 mg/dL (0.2-1.3); BLOOD UREA NITROGEN 16 mg/dL (7-20); CALCIUM 8.2 mg/dL (8.4-10.2); GLUCOSE 101 mg/dL (75-110); POTASSIUM 4.1 mmol/L (3.6-5.0); TOTAL PROTEIN 5.5 g/dL (6.3-8.2)
[2020-04-01 19:53] LABS: ANION GAP 3 (5-19); CARBON DIOXIDE 38 mmol/L (22-30); CHLORIDE 94 mmol/L (98-107)
[2020-04-01] MEDS ORDERED: ACETAMINOPHEN 325 MG TABLET PO PRN (20:00)
--- NOTE | 2020-04-01 21:27 | PDOC PROGRESS REPORT ---
Subjective Progress Note for:: 04/01/20 Subjective:: patient is alert awaiting placement for rehabilitation Reason For Visit: RESPIRATORY ARREST Physical Exam Vital Signs: Temp Pulse Resp BP Pulse Ox 98.7 F 95 16 135/90 H 96 04/01/20 19:59 04/01/20 19:59 04/01/20 19:59 04/01/20 19:59 04/01/20 19:59 Intake & Output 03/31/20 04/01/20 04/02/20 06:59 06:59 06:59 Intake Total 1696 1380 1298 Output Total 1680 1025 1125 Balance 16 355 173 Weight 123.4 kg 120.4 kg General appearance: PRESENT: no acute distress Eye exam: PRESENT: PERRLA Respiratory exam: PRESENT: clear to auscultation mary Cardiovascular exam: PRESENT: +S1, +S2 GI/Abdominal exam: PRESENT: soft Neurological exam: PRESENT: alert Results Laboratory Results: 04/01/20 18:39 04/01/20 18:39 04/01/20 04/01/20 18:39 18:39 WBC 5.4 RBC 3.87 Hgb 11.8 L Hct 35.5 L MCV 92 MCH 30.5 MCHC 33.1 RDW 15.6 H Plt Count 189 Seg Neutrophils % 71.2 Sodium 135.4 L Potassium 4.1 Chloride 94 L Carbon Dioxide 38 H Anion Gap 3 L BUN 16 Creatinine 0.59 Est GFR ( Amer) > 60 Glucose 101 Calcium 8.2 L Total Bilirubin 0.5 AST 37 H Alkaline Phosphatase 64 Total Protein 5.5 L Albumin 2.7 L 03/21/20 03/21/20 03/21/20 03:05 03:05 06:20 Creatine Kinase 39 Troponin I 0.417 0.628 NT-Pro-B Natriuret Pep 66152 H 03/21/20 03/21/20 03/21/20 12:42 13:49 19:15 Creatine Kinase Troponin I Cancelled 0.706 0.672 NT-Pro-B Natriuret Pep 03/22/20 03/23/20 04:52 04:16 Creatine Kinase Troponin I NT-Pro-B Natriuret Pep 6820 H 3070 H Impressions: Head CT 03/21/20 00:00 IMPRESSION: No acute intracranial abnormality. Chest/Abdomen CTA 03/22/20 00:00 IMPRESSION: Bilateral pleural effusions with associated airspace disease, likely atelectasis in the lower lobes. There is no pulmonary embolus. There is no aortic aneurysm or dissection. Venous Doppler Study 03/26/20 00:00 IMPRESSION: NO EVIDENCE OF DVT OR SVT IN THE LEFT ARM. Chest X-Ray 03/30/20 00:00 IMPRESSION: No significant interval change. Small bilateral pleural effusions with compressive atelectasis of the lung bases. Assessment & Plan - Diagnosis (1) Acute respiratory failure with hypoxia Is this a current diagnosis for this admission?: Yes (2) Morbid (severe) obesity with alveolar hypoventilation Is this a current diagnosis for this admission?: Yes (3) Metabolic encephalopathy Is this a current diagnosis for this admission?: Yes (4) Other hypotension Is this a current diagnosis for this admission?: Yes - Time Time Spent with patient: 15-24 minutes Level of Care: IMCU
[2020-04-01] MEDS: DONEPEZIL HCL 5 MG TABLET PO SCH (22:11)
[2020-04-01] MEDS: MEMANTINE HCL 10 MG TABLET PO SCH (22:11)
[2020-04-01] MEDS: ATORVASTATIN CALCIUM 40 MG TABLET PO SCH (22:11)
[2020-04-02] MEDS: LEVOTHYROXINE SODIUM 0.112 MG TABLET PO SCH (06:04)
[2020-04-02 06:44] LABS: ABSOLUTE EOSINOPHILS # (AUTO) 0.2 10^3/uL (0.0-0.6); ABSOLUTE LYMPHOCYTES (AUTO) 0.8 10^3/uL (0.5-4.7); ABSOLUTE MONOCYTES (AUTO) 0.4 10^3/uL (0.1-1.4); ABSOLUTE NEUT (AUTO) 3.1 10^3/uL (1.7-8.2); BASOPHILS % (AUTO) 0.9 % (0-2); EOSINOPHILS % (AUTO) 5.3 % (0-6); HEMATOCRIT 35.3 % (36.0-47.0); HEMOGLOBIN 11.7 g/dL (12.0-15.5); LYMPHOCYTES % (AUTO) 17.9 % (13-45); MEAN CORPUSCULAR HEMOGLOBIN 30.3 pg (27.0-33.4); MEAN CORPUSCULAR HGB CONC 33.1 g/dL (32.0-36.0); MEAN CORPUSCULAR VOLUME 92 fl (80-97); MONOCYTES % (AUTO) 9.3 % (3-13); PLATELET COUNT 174 10^3/uL (150-450); RED BLOOD COUNT 3.85 10^6/uL (3.72-5.28); RED CELL DISTRIBUTION WIDTH 15.2 % (11.5-14.0); SEGMENTED NEUTROPHILS % (AUTO) 66.6 % (42-78); TOTAL CELLS COUNTED % (AUTO) 100 %; WHITE BLOOD COUNT 4.7 10^3/uL (4.0-10.5)
[2020-04-02 07:06] LABS: ALBUMIN 2.5 g/dL (3.5-5.0); ALKALINE PHOSPHATASE 62 U/L (38-126); ASPARTATE AMINO TRANSFERASE 35 U/L (14-36); BILIRUBIN,TOTAL 0.7 mg/dL (0.2-1.3); BLOOD UREA NITROGEN 15 mg/dL (7-20); CALCIUM 8.3 mg/dL (8.4-10.2); CHLORIDE 98 mmol/L (98-107); GLUCOSE 70 mg/dL (75-110); POTASSIUM 3.9 mmol/L (3.6-5.0); TOTAL PROTEIN 5.2 g/dL (6.3-8.2)
[2020-04-02 07:11] LABS: CARBON DIOXIDE 38 mmol/L (22-30)
[2020-04-02 07:13] LABS: ANION GAP 1 (5-19)
[2020-04-02] MEDS: LEVALBUTEROL HCL NEB 0.63 MG/3 ML AMPUL NEB SCH ×3 (08:19→20:57)
[2020-04-02 09:46] LABS: ARTERIAL BLOOD BASE EXCESS 10.6 mmol/L; ARTERIAL BLOOD H2CO3 1.62 mmol/L (1.05-1.35); ARTERIAL BLOOD HCO3 36.4 mmol/L (20-24); ARTERIAL BLOOD O2 SATURATION 94.3 % (94-98); ARTERIAL BLOOD PCO2 53.9 mmHg (35-45); ARTERIAL BLOOD PH 7.45 (7.35-7.45); ARTERIAL BLOOD PO2 69.7 mmHg (80-100)
[2020-04-02 09:47] LABS: ARTERIAL BLOOD FIO2 2L
[2020-04-02] MEDS: SERTRALINE HCL 50 MG TABLET PO SCH (11:24)
[2020-04-02] MEDS: APIXABAN 5 MG TABLET PO SCH ×2 (11:25→17:37)
[2020-04-02] MEDS: MAGNESIUM OXIDE 400 MG TABLET PO SCH ×2 (11:30→17:37)
--- NOTE | 2020-04-02 21:23 | PDOC PROGRESS REPORT ---
Subjective Progress Note for:: 04/02/20 Subjective:: Patient seen by the bedside, no new complaints Reason For Visit: RESPIRATORY ARREST Physical Exam Vital Signs: Temp Pulse Resp BP Pulse Ox 98.1 F 88 21 H 128/94 H 97 04/02/20 15:08 04/02/20 15:08 04/02/20 15:08 04/02/20 15:08 04/02/20 15:08 Intake & Output 04/01/20 04/02/20 04/03/20 06:59 06:59 06:59 Intake Total 1380 1418 1360 Output Total 1025 2150 1000 Balance 355 -693 360 Weight 120.4 kg 120.4 kg 120.4 kg General appearance: PRESENT: no acute distress Eye exam: PRESENT: PERRLA Respiratory exam: PRESENT: clear to auscultation mary Cardiovascular exam: PRESENT: +S1, +S2 GI/Abdominal exam: PRESENT: soft Neurological exam: PRESENT: alert Results Laboratory Results: 04/02/20 06:26 04/02/20 06:26 04/02/20 04/02/20 04/02/20 06:26 06:26 06:26 WBC 4.7 RBC 3.85 Hgb 11.7 L Hct 35.3 L MCV 92 MCH 30.3 MCHC 33.1 RDW 15.2 H Plt Count 174 Seg Neutrophils % 66.6 Carbonic Acid HCO3/H2CO3 Ratio ABG pH ABG pCO2 ABG pO2 ABG HCO3 ABG O2 Saturation ABG Base Excess FiO2 Sodium 137.1 Potassium 3.9 Chloride 98 Carbon Dioxide 38 H Anion Gap 1 L BUN 15 Creatinine 0.50 L Est GFR ( Amer) > 60 Glucose 70 L Calcium 8.3 L Magnesium 1.5 L Total Bilirubin 0.7 AST 35 Alkaline Phosphatase 62 Total Protein 5.2 L Albumin 2.5 L 04/02/20 09:10 WBC RBC Hgb Hct MCV MCH MCHC RDW Plt Count Seg Neutrophils % Carbonic Acid 1.62 H HCO3/H2CO3 Ratio 22:1 ABG pH 7.45 ABG pCO2 53.9 H ABG pO2 69.7 L ABG HCO3 36.4 H ABG O2 Saturation 94.3 ABG Base Excess 10.6 FiO2 2L Sodium Potassium Chloride Carbon Dioxide Anion Gap BUN Creatinine Est GFR ( Amer) Glucose Calcium Magnesium Total Bilirubin AST Alkaline Phosphatase Total Protein Albumin 03/21/20 03/21/20 03/21/20 03:05 03:05 06:20 Creatine Kinase 39 Troponin I 0.417 0.628 NT-Pro-B Natriuret Pep 57667 H 03/21/20 03/21/20 03/21/20 12:42 13:49 19:15 Creatine Kinase Troponin I Cancelled 0.706 0.672 NT-Pro-B Natriuret Pep 03/22/20 03/23/20 04:52 04:16 Creatine Kinase Troponin I NT-Pro-B Natriuret Pep 6820 H 3070 H Impressions: Head CT 03/21/20 00:00 IMPRESSION: No acute intracranial abnormality. Chest/Abdomen CTA 03/22/20 00:00 IMPRESSION: Bilateral pleural effusions with associated airspace disease, likely atelectasis in the lower lobes. There is no pulmonary embolus. There is no aortic aneurysm or dissection. Venous Doppler Study 03/26/20 00:00 IMPRESSION: NO EVIDENCE OF DVT OR SVT IN THE LEFT ARM. Chest X-Ray 03/30/20 00:00 IMPRESSION: No significant interval change. Small bilateral pleural effusions with compressive atelectasis of the lung bases. Assessment & Plan - Diagnosis (1) Acute respiratory failure with hypoxia Is this a current diagnosis for this admission?: Yes (2) Morbid (severe) obesity with alveolar hypoventilation Is this a current diagnosis for this admission?: Yes (3) Metabolic encephalopathy Is this a current diagnosis for this admission?: Yes (4) Other hypotension Is this a current diagnosis for this admission?: Yes - Time Time Spent with patient: 15-24 minutes Level of Care: IMCU Medications reviewed and adjusted accordingly: Yes
[2020-04-02] MEDS: MEMANTINE HCL 10 MG TABLET PO SCH (21:41)
[2020-04-02] MEDS: ATORVASTATIN CALCIUM 40 MG TABLET PO SCH (21:41)
[2020-04-02] MEDS: DONEPEZIL HCL 5 MG TABLET PO SCH (21:41)
[2020-04-03] MEDS: LEVOTHYROXINE SODIUM 0.112 MG TABLET PO SCH (06:30)
[2020-04-03 06:56] LABS: ABSOLUTE EOSINOPHILS # (AUTO) 0.2 10^3/uL (0.0-0.6); ABSOLUTE LYMPHOCYTES (AUTO) 0.8 10^3/uL (0.5-4.7); ABSOLUTE MONOCYTES (AUTO) 0.4 10^3/uL (0.1-1.4); ABSOLUTE NEUT (AUTO) 3.2 10^3/uL (1.7-8.2); BASOPHILS % (AUTO) 0.6 % (0-2); EOSINOPHILS % (AUTO) 4.3 % (0-6); HEMATOCRIT 36.9 % (36.0-47.0); HEMOGLOBIN 12.2 g/dL (12.0-15.5); LYMPHOCYTES % (AUTO) 17.4 % (13-45); MEAN CORPUSCULAR HEMOGLOBIN 30.3 pg (27.0-33.4); MEAN CORPUSCULAR VOLUME 92 fl (80-97); MONOCYTES % (AUTO) 9.2 % (3-13); PLATELET COUNT 169 10^3/uL (150-450); RED BLOOD COUNT 4.02 10^6/uL (3.72-5.28); RED CELL DISTRIBUTION WIDTH 14.9 % (11.5-14.0); SEGMENTED NEUTROPHILS % (AUTO) 68.5 % (42-78); TOTAL CELLS COUNTED % (AUTO) 100 %; WHITE BLOOD COUNT 4.6 10^3/uL (4.0-10.5)
[2020-04-03] MEDS: LEVALBUTEROL HCL NEB 0.63 MG/3 ML AMPUL NEB SCH ×2 (09:26→14:38)
[2020-04-03] MEDS: MAGNESIUM OXIDE 400 MG TABLET PO SCH (10:56)
[2020-04-03] MEDS: APIXABAN 5 MG TABLET PO SCH (10:56)
[2020-04-03] MEDS: SERTRALINE HCL 50 MG TABLET PO SCH (10:56)
[2020-04-03 12:31] VITALS: BP 143/82
--- NOTE | 2020-04-03 15:03 | PDOC TRANSFER SUMMARY ---
Impression - Admit/DC Date/PCP Admission Date/Primary Care Provider: 03/21/20 04:48 NIKKI MCCULLOUGH MD Discharge Date: 04/03/20 - Discharge Diagnosis (1) Acute respiratory failure with hypoxia Is this a current diagnosis for this admission?: Yes (2) Morbid (severe) obesity with alveolar hypoventilation Is this a current diagnosis for this admission?: Yes (3) Metabolic encephalopathy Is this a current diagnosis for this admission?: Yes (4) Other hypotension Is this a current diagnosis for this admission?: Yes (5) Obstructive sleep apnea Is this a current diagnosis for this admission?: Yes (6) Essential tremor Is this a current diagnosis for this admission?: Yes (7) Pulmonary edema Is this a current diagnosis for this admission?: Yes (8) Morbid (severe) obesity due to excess calories Is this a current diagnosis for this admission?: Yes (9) Chronic atrial fibrillation Is this a current diagnosis for this admission?: Yes (10) E. coli UTI Is this a current diagnosis for this admission?: Yes - Additional Information Resuscitation Status: Full Code Referrals: NIKKI MCCULLOUGH MD [Primary Care Provider] - 04/04/20 2:30 pm Home Medications: Atorvastatin Calcium [Lipitor 40 mg Tablet] 40 mg PO QHS 12/03/17 Sertraline HCl [Zoloft] 50 mg PO DAILY 12/03/17 Metoprolol Succinate [Toprol Xl 50 mg Tab.sr] 200 mg PO DAILY 03/22/19 Multivitamin [Tab-A-[place] (Multiple Vitamin) Tablet] 1 tab PO DAILY 03/22/19 Nitrofurantoin Macrocrystal [Macrodantin] 100 mg PO DAILY 03/22/19 Omeprazole 40 mg PO DAILY 03/22/19 Tramadol HCl [Ultram 50 mg Tablet] 50 mg PO Q6HP PRN #120 tablet 03/25/19 Alprazolam 1 mg PO BID 03/21/20 Levothyroxine Sodium [Levoxyl] 112 mcg PO DAILY 03/21/20 Losartan Potassium 50 mg PO DAILY 03/21/20 Memantine HCl/Donepezil HCl [Namzaric 28 mg-10 mg Capsule] 1 cap PO QHS 03/21/20 Acetaminophen [Tylenol 325 mg Tablet] 650 mg PO Q4HP PRN tablet 04/03/20 Apixaban [Eliquis 5 mg Tablet] 5 mg PO BID tablet 04/03/20 Levalbuterol HCl [Xopenex Neb 0.63 mg/3 ml Ampul] 0.63 mg NEB [id number] vial.neb 04/03/20 History of Present Illiness History of Present Illness: Ms. Desirae Weinstein is an 84-year-old female with a past medical history of atrial fibrillation on Eliquis, CHF, CVA, hypothyroidism and hypertension presented to the ED via EMS with acute respiratory failure. Patient was found down by her roommate unresponsive, EMS was called and when they arrived they found the patient on the floor with agonal respirations and a weak pulse. She was intubated by the medics she was given 160 mg of ketamine 150 mg of rocuronium 100 mg of fentanyl and 2 rounds of epinephrine prior to the arrival to the ED her systolic blood pressure did drop to the 80s enroute. Upon arrival into the ED her blood pressure is 114/93 with a heart rate in the 70s. When I examined the patient in the ED she was off sedation she did start to arouse, her ETT was suction for a large amount of pink frothy sputum, chest x-ray shows pulmonary edema. Her blood pressure at that time was 220s over 100s nitroglycerin drip was started. She is bradycardic in the 40s to 50s EKG shows atrial fibrillation. Given her unresponsive state and hypertensive emergency as well as being on Eliquis she is sent for a CT of the head to rule out a head bleed. She will be admitted to the ICU for further management after the CT of the head is completed. History obtained from:: Chart Hospital Course Hospital Course: Patient was admitted on March 21, 2020 in intensive care unit, she presented with syndrome suggestive of congestive heart failure, hypertensive emergency, chronic atrial fibrillation with controlled rate, acute respiratory failure, hypothyroidism. She was managed in the intensive care unit there was no history available from family members on presentation she was intubated on medical ventilation she was diuresed with furosemide, 2D echo was ordered, at presentation and the BNP was 14,120 troponin was 0.417, EKG showed atrial fibrillation, the blood pressure was in hypertensive emergency range, she was treated with nitroglycerin drip., The echocardiogram that was done demonstrated the ejection fraction of left ventricle more than 60%, the right ventricle was dilated moderately, the left atrium was dilated severely, the right atrium was dilated severely there is no mitral valve prolapse that was associated pulmonary hypertension a CTA chest was done was negative for pulmonary embolism. Patient presented with acute hypoxemic respiratory failure, it was negative for pulmonary embolism, 2D echo demonstrated no heart failure the blood pressure dropped in intensive care unit after she had ketamine, fentanyl for intubation. CTA was negative for an acute hemorrhagic stroke on March 23, 2020 she was extubated successfully, she was placed on BiPAP subsequently CT chest shows persistent bilateral pleural effusion pulmonary edema, she was treated with intravenously for the A. fib the exact etiology of presentation was not clear from evaluation in the intensive care unit it was felt that she probably has obstructive sleep apnea she also was treated with stress dose hydrocortisone and also for low blood pressure. Patient was downgraded to IMCU floor she has remained stable on the floor is presently requiring BiPAP at night, she will need to have a sleep study done when she is discharged home she is extremely deconditioned and she will be transferred to [facility] for rehab. When she lost consciousness at home CPR was initiated by the son-in-law, the elevated troponin could be from chest compression., The pleural effusion/pulmonary edema is most likely from chest compression performed at home by the son-in-law Physical Exam Vital Signs: Temp Pulse Resp BP Pulse Ox 97.4 F 94 22 H 143/82 H 97 04/03/20 12:01 04/03/20 12:01 04/03/20 12:01 04/03/20 12:01 04/03/20 12:01 Intake & Output 04/02/20 04/03/20 04/04/20 06:59 06:59 06:59 Intake Total 1418 1360 220 Output Total 2150 1550 Balance -732 -190 220 Weight 120.4 kg 120.5 kg General appearance: PRESENT: no acute distress Eye exam: PRESENT: PERRLA Respiratory exam: PRESENT: clear to auscultation mary Cardiovascular exam: PRESENT: +S1, +S2 GI/Abdominal exam: PRESENT: soft Neurological exam: PRESENT: alert Results Laboratory Results: WBC 4.6 10^3/uL (4.0-10.5) 04/03/20 06:24 RBC 4.02 10^6/uL (3.72-5.28) 04/03/20 06:24 Hgb 12.2 g/dL (12.0-15.5) 04/03/20 06:24 Hct 36.9 % (36.0-47.0) 04/03/20 06:24 MCV 92 fl (80-97) 04/03/20 06:24 MCH 30.3 pg (27.0-33.4) 04/03/20 06:24 MCHC 33.0 g/dL (32.0-36.0) 04/03/20 06:24 RDW 14.9 % (11.5-14.0) H 04/03/20 06:24 Plt Count 169 10^3/uL (150-450) 04/03/20 06:24 Lymph % (Auto) 17.4 % (13-45) 04/03/20 06:24 Mayes % (Auto) 9.2 % (3-13) 04/03/20 06:24 Eos % (Auto) 4.3 % (0-6) 04/03/20 06:24 Baso % (Auto) 0.6 % (0-2) 04/03/20 06:24 Absolute Neuts (auto) 3.2 10^3/uL (1.7-8.2) 04/03/20 06:24 Absolute Lymphs (auto) 0.8 10^3/uL (0.5-4.7) 04/03/20 06:24 Absolute Monos (auto) 0.4 10^3/uL (0.1-1.4) 04/03/20 06:24 Absolute Eos (auto) 0.2 10^3/uL (0.0-0.6) 04/03/20 06:24 Absolute Basos (auto) 0.0 10^3/uL (0.0-0.2) 04/03/20 06:24 Total Counted 100 03/27/20 04:13 Seg Neutrophils % 68.5 % (42-78) 04/03/20 06:24 Seg Neuts % (Manual) 91 % (42-78) H 03/27/20 04:13 Lymphocytes % (Manual) 5 % (13-45) L 03/27/20 04:13 Monocytes % (Manual) 4 % (3-13) 03/27/20 04:13 Eosinophils % (Manual) 0 % (0-6) 03/27/20 04:13 Basophils % (Manual) 0 % (0-2) 03/27/20 04:13 Abs Neuts (Manual) 6.7 10^3/uL (1.7-8.2) 03/27/20 04:13 Abs Lymphs (Manual) 0.4 10^3/uL (0.5-4.7) L 03/27/20 04:13 Abs Monocytes (Manual) 0.3 10^3/uL (0.1-1.4) 03/27/20 04:13 Absolute Eos (Manual) 0.0 10^3/uL (0.0-0.6) 03/27/20 04:13 Abs Basophils (Manual) 0.0 10^3/uL (0.0-0.2) 03/27/20 04:13 Toxic Granulation SLIGHT 03/26/20 04:29 Toxic Vacuolation PRESENT 03/26/20 04:29 Platelet Estimate Cancelled 03/22/20 04:52 Platelet Comment ADEQUATE 03/27/20 04:13 Poikilocytosis SLIGHT 03/26/20 04:29 Anisocytosis SLIGHT 03/27/20 04:13 Ovalocytes SLIGHT 03/27/20 04:13 PT 17.1 SEC (11.4-15.4) H 03/24/20 04:20 INR 1.38 03/24/20 04:20 APTT 43.6 SEC (23.5-35.8) H 03/24/20 11:05 Carbonic Acid 1.62 mmol/L (1.05-1.35) H 04/02/20 09:10 HCO3/H2CO3 Ratio 22:1 04/02/20 09:10 ABG pH 7.45 (7.35-7.45) 04/02/20 09:10 ABG pCO2 53.9 mmHg (35-45) H 04/02/20 09:10 ABG pO2 69.7 mmHg (80-100) L 04/02/20 09:10 ABG HCO3 36.4 mmol/L (20-24) H 04/02/20 09:10 ABG Total CO2 38.0 mmol/L (21-25) H 04/02/20 09:10 ABG O2 Saturation 94.3 % (94-98) 04/02/20 09:10 ABG Base Excess 10.6 mmol/L 04/02/20 09:10 FiO2 2L 04/02/20 09:10 Sodium 137.1 mmol/L (137-145) 04/02/20 06:26 Potassium 3.9 mmol/L (3.6-5.0) 04/02/20 06:26 Chloride 98 mmol/L (98-107) 04/02/20 06:26 Carbon Dioxide 38 mmol/L (22-30) H 04/02/20 06:26 Anion Gap 1 (5-19) L 04/02/20 06:26 BUN 15 mg/dL (7-20) 04/02/20 06:26 Creatinine 0.50 mg/dL (0.52-1.25) L 04/02/20 06:26 Est GFR ( Amer) > 60 (>60) 04/02/20 06:26 Est GFR (MDRD) Non-Af > 60 (>60) 04/02/20 06:26 Glucose 70 mg/dL (75-110) L 04/02/20 06:26 POC Glucose 108 mg/dL (70-110) 03/31/20 07:38 Calcium 8.3 mg/dL (8.4-10.2) L 04/02/20 06:26 Phosphorus 2.7 mg/dL (2.5-4.5) 03/27/20 04:13 Magnesium 1.5 mg/dL (1.6-2.3) L 04/02/20 06:26 Total Bilirubin 0.7 mg/dL (0.2-1.3) 04/02/20 06:26 Direct Bilirubin 0.0 mg/dL (0.0-0.4) 04/02/20 06:26 Neonat Total Bilirubin Not Reportable 04/02/20 06:26 Neonat Direct Bilirubin Not Reportable 04/02/20 06:26 Neonat Indirect Bili Not Reportable 04/02/20 06:26 AST 35 U/L (14-36) 04/02/20 06:26 ALT 20 U/L (<35) 04/02/20 06:26 Alkaline Phosphatase 62 U/L (38-126) 04/02/20 06:26 Ammonia < 8.7 umol/L (9-33) L 03/26/20 04:29 Creatine Kinase 39 U/L (30-135) 03/21/20 03:05 Troponin I 0.672 ng/mL 03/21/20 19:15 NT-Pro-B Natriuret Pep 916 pg/mL (<450) H 04/03/20 06:24 Total Protein 5.2 g/dL (6.3-8.2) L 04/02/20 06:26 Albumin 2.5 g/dL (3.5-5.0) L 04/02/20 06:26 Triglycerides 94 mg/dL (<150) 03/23/20 04:16 Cholesterol 82.44 mg/dL (0-200) 03/23/20 04:16 LDL Cholesterol Direct < 30 mg/dL (<100) 03/23/20 04:16 VLDL Cholesterol 19.0 mg/dL (10-31) 03/23/20 04:16 HDL Cholesterol 44 mg/dL (>40) 03/23/20 04:16 Lipase 41.9 U/L (23-300) 03/23/20 04:16 Procalcitonin 0.13 ng/mL (0.00-0.08) H 03/26/20 19:18 TSH 7.98 uIU/mL (0.47-4.68) H 03/21/20 03:05 Free T4 1.74 ng/dL (0.78-2.19) 03/21/20 03:05 Free T3 pg/mL 3.32 pg/mL (2.77-5.27) 03/21/20 03:05 Random Cortisol 15.20 ug/dL (None Established) 03/25/20 18:45 Urine Color YELLOW 03/25/20 04:30 Urine Appearance CLEAR 03/25/20 04:30 Urine pH 5.0 (5.0-9.0) 03/25/20 04:30 Ur Specific [place] 1.009 03/25/20 04:30 Urine Protein NEGATIVE mg/dL (NEGATIVE) 03/25/20 04:30 Urine Glucose (UA) NEGATIVE mg/dL (NEGATIVE) 03/25/20 04:30 Urine Ketones NEGATIVE mg/dL (NEGATIVE) 03/25/20 04:30 Urine Blood NEGATIVE (NEGATIVE) 03/25/20 04:30 Urine Nitrite NEGATIVE (NEGATIVE) 03/25/20 04:30 Urine Bilirubin NEGATIVE (NEGATIVE) 03/25/20 04:30 Urine Urobilinogen NEGATIVE mg/dL (<2.0) 03/25/20 04:30 Ur Leukocyte Esterase NEGATIVE (NEGATIVE) 03/25/20 04:30 Urine WBC (Auto) 1 /HPF 03/25/20 04:30 Urine RBC (Auto) 0 /HPF 03/25/20 04:30 U Hyaline Cast (Auto) 19 /LPF 03/25/20 04:30 Urine Bacteria (Auto) TRACE /HPF 03/25/20 04:30 Urine WBC Clumps MANY /HPF 03/21/20 03:28 Squamous Epi Cells Auto <1 /HPF 03/25/20 04:30 Urine Mucus (Auto) RARE /LPF 03/25/20 04:30 Urine Ascorbic Acid NEGATIVE (NEGATIVE) 03/25/20 04:30 COVID-19 Source NASOPHARYNGEAL 03/29/20 15:50 COVID-19 (CHARLEEN) NOT DETECTED 03/29/20 15:50 Slides for Path Review Cancelled 03/22/20 04:52 Blood Type O POSITIVE 03/21/20 03:10 Antibody Screen NEGATIVE 03/21/20 03:10 03/21/20 03/21/20 03/21/20 03:05 06:20 12:42 Troponin I 0.417 0.628 Cancelled NT-Pro-B Natriuret Pep 23407 H 03/21/20 03/21/20 03/22/20 13:49 19:15 04:52 Troponin I 0.706 0.672 NT-Pro-B Natriuret Pep 6820 H 03/23/20 04/03/20 04:16 06:24 Troponin I NT-Pro-B Natriuret Pep 3070 H 916 H Impressions: Head CT 03/21/20 00:00 IMPRESSION: No acute intracranial abnormality. Chest X-Ray 03/21/20 02:55 IMPRESSION: Left lower lung opacity consistent with atelectasis and/or pneumonia. Chest X-Ray 03/21/20 17:48 IMPRESSION: Improved aeration the left base. Persistent left pleural effusion. Chest/Abdomen CTA 03/22/20 00:00 IMPRESSION: Bilateral pleural effusions with associated airspace disease, likely atelectasis in the lower lobes. There is no pulmonary embolus. There is no aortic aneurysm or dissection. Chest X-Ray 03/22/20 06:00 IMPRESSION: STABLE APPEARANCE OF THE CHEST. SUPPORT DEVICES UNCHANGED. Chest X-Ray 03/23/20 06:00 IMPRESSION: Small right pleural effusion Minimal bibasilar atelectasis Nasogastric tube tip and side port in the stomach Chest X-Ray 03/24/20 00:00 IMPRESSION: Interval line/tube modification. Venous Doppler Study 03/26/20 00:00 IMPRESSION: NO EVIDENCE OF DVT OR SVT IN THE LEFT ARM. Chest X-Ray 03/30/20 00:00 IMPRESSION: No significant interval change. Small bilateral pleural effusions with compressive atelectasis of the lung bases. Stroke Is this a Stroke Patient?: No Acute Heart Failure - Is this a Heart Failure Patient?: No
== END 2020-04-03 17:00 | DRG 208 ==
LOC: ER 02:50 → EH 04:48 → ICU 05:25 → 3S 03-27 11:05
PROVIDERS: ADMIT Internal Medicine Critical Care Medicine; ATTEND Internal Medicine
PROC: 5A1945Z Respiratory Ventilation, 24-96 Consecutive Hours (ICD-10-PCS; principal; 2020-03-21)
PROC: 0BH17EZ Insertion of Endotracheal Airway into Trachea, Via Natural or Artificial Opening (ICD-10-PCS; 2020-03-21)
PROC: 5A09557 Assistance with Respiratory Ventilation, Greater than 96 Consecutive Hours, Continuous Positive Airway Pressure (ICD-10-PCS; 2020-03-23)
DX: J96.01 Acute respiratory failure with hypoxia (principal); G93.41 Metabolic encephalopathy; E66.2 Morbid (severe) obesity with alveolar hypoventilation; J81.1 Chronic pulmonary edema; N39.0 Urinary tract infection, site not specified; I16.1 Hypertensive emergency; Z68.41 Body mass index [BMI] 40.0-44.9, adult; I48.21 Permanent atrial fibrillation; I95.89 Other hypotension; G25.0 Essential tremor; B96.20 Unspecified Escherichia coli [E. coli] as the cause of diseases classified elsewhere; E03.9 Hypothyroidism, unspecified; R00.1 Bradycardia, unspecified; G47.33 Obstructive sleep apnea (adult) (pediatric); J44.9 Chronic obstructive pulmonary disease, unspecified; K21.9 Gastro-esophageal reflux disease without esophagitis; K44.9 Diaphragmatic hernia without obstruction or gangrene; E78.5 Hyperlipidemia, unspecified; F32.9 Major depressive disorder, single episode, unspecified; D64.9 Anemia, unspecified; E87.6 Hypokalemia; E83.42 Hypomagnesemia; E87.70 Fluid overload, unspecified; G20 Parkinson's disease; I08.1 Rheumatic disorders of both mitral and tricuspid valves; J96.02 Acute respiratory failure with hypercapnia; E86.1 Hypovolemia; E78.00 Pure hypercholesterolemia, unspecified; E86.0 Dehydration; I10 Essential (primary) hypertension; Z78.1 Physical restraint status; Z79.899 Other long term (current) drug therapy; Z79.01 Long term (current) use of anticoagulants; Z86.73 Personal history of transient ischemic attack (TIA), and cerebral infarction without residual deficits; Z79.890 Hormone replacement therapy; Z88.6 Allergy status to analgesic agent
CPT/HCPCS: 36415; 36600; 70450; 71045; 71275; 80048; 80053; 80061; 81001; 82140; 82533; 82550; 82803; 82962; 83690; 83735; 83880; 84100; 84145; 84439; 84443; 84481; 84484; 85025; 85027; 85610; 85730; 86850; 86900; 86901; 87040; 87070; 87077; 87086; 87088; 87150; 87186; 87205; 87635; 93005; 93010; 93306; 93971; 94002; 94003; 94660; 96365; 96368; 96375; 99221; 99291; 99292; C9113; C9803; J0696; J1644; J1720; J1815; J1940; J1956; J2543; J2704; J3010; J3370; J3475; J3480; J3490; J7040; J7614; P9041; P9047

== ENCOUNTER 2020-05-08 16:18 | Inpatient (IN) | payer MEDICARE, OTHER ==
--- NOTE | 2020-05-08 17:05 | ER Document Report ---
ED Medical Screen (RME) - General Stated Complaint: ALTERED MENTAL STATUS Time Seen by Provider: 05/08/20 16:44 Primary Care Provider: NIKKI MCCULLOUGH MD [Primary Care Provider] - Follow up as needed Mode of Arrival: Medic Information source: Transfer Record, Emergency Med Personnel TRAVEL OUTSIDE OF THE [place] IN LAST 30 DAYS: No - HPI Notes: 05/08/20 16:54 84 yr old female with a medical hx of a fib, heart failure, ASHVIN, TIA, asthma, dementia, hypothyroidism, respiratory failure, dysphasia, pulmonary edema, copd who came by EMS from [facility] today for AMS, lethargy. Patient states she is not sure why she came to the emergency room, she does not have any complaints however she did think that she was at [facility] long term instead of the emergency room. Per [facility] she was very hard to wake up and they stated that she was acting confused. Patient is on Eliquis for her A. fib. Patient's not having any complaints. Denies any chest pain, shortness of breath, nausea, vomiting, diarrhea, headache, blurred vision, dysuria, abdominal pain, low back pain. 05/08/20 16:57 I have greeted and performed a rapid initial assessment of this patient. A comprehensive ED assessment and evaluation of the patient, analysis of test results and completion of the medical decision making process will be conducted by additional ED providers. PHYSICAL EXAMINATION: GENERAL: chronically ill, malnourished well-nourished and in no acute distress. HEAD: Atraumatic, normocephalic. EYES: Pupils equal round extraocular movements intact, conjunctiva are normal. CV: Regular LUNGS: No respiratory distress NEUROLOGICAL: Normal speech SKIN: Warm, Dry, normal turgor, no rashes or lesions noted. Bilateral leg swelling - Related Data Allergies/Adverse Reactions: meperidine HCl [From Demerol] Allergy (Severe, Verified 03/21/20 03:24) Past Medical History - Past Medical History Cardiac Medical History: Reports: Hx Atrial Fibrillation, Hx Hypercholesterolemia, Hx Hypertension Denies: Hx Heart Attack Pulmonary Medical History: Reports: Hx Asthma, Hx COPD, Hx Sleep Apnea - doesn't use cpap Neurological Medical History: Denies: Hx Cerebrovascular Accident, Hx Seizures Endocrine Medical History: Reports: Hx Hypothyroidism Renal/ Medical History: Denies: Hx Peritoneal Dialysis GI Medical History: Reports: Hx Gastroesophageal Reflux Disease, Hx Hiatal Hernia. Denies: Hx Ulcer Musculoskeltal Medical History: Reports Hx Arthritis Psychiatric Medical History: Reports: Hx Depression Past Surgical History: Reports: Hx Appendectomy, Hx Orthopedic Surgery - bilat knee, Hx Tonsillectomy, Hx Tubal Ligation. Denies: Hx Hysterectomy, Hx Open Heart Surgery - Immunizations Hx Diphtheria, Pertussis, Tetanus Vaccination: No Doctor's Discharge - Discharge Referrals: NIKKI MCCULLOUGH MD [Primary Care Provider] - Follow up as needed
[2020-05-08 17:14] LABS: ABSOLUTE EOSINOPHILS # (AUTO) 0.1 10^3/uL (0.0-0.6); ABSOLUTE LYMPHOCYTES (AUTO) 0.9 10^3/uL (0.5-4.7); ABSOLUTE MONOCYTES (AUTO) 0.4 10^3/uL (0.1-1.4); ABSOLUTE NEUT (AUTO) 3.6 10^3/uL (1.7-8.2); BASOPHILS % (AUTO) 0.4 % (0-2); EOSINOPHILS % (AUTO) 2.6 % (0-6); HEMATOCRIT 31.9 % (36.0-47.0); HEMOGLOBIN 10.5 g/dL (12.0-15.5); LYMPHOCYTES % (AUTO) 17.7 % (13-45); MEAN CORPUSCULAR HEMOGLOBIN 31.2 pg (27.0-33.4); MEAN CORPUSCULAR HGB CONC 32.8 g/dL (32.0-36.0); MEAN CORPUSCULAR VOLUME 95 fl (80-97); MONOCYTES % (AUTO) 7.2 % (3-13); PLATELET COUNT 171 10^3/uL (150-450); RED BLOOD COUNT 3.35 10^6/uL (3.72-5.28); RED CELL DISTRIBUTION WIDTH 15.3 % (11.5-14.0); SEGMENTED NEUTROPHILS % (AUTO) 72.1 % (42-78); TOTAL CELLS COUNTED % (AUTO) 100 %
[2020-05-08 17:16] LABS: PROTHROMBIN TIME 17.3 SEC (11.4-15.4)
--- NOTE | 2020-05-08 17:26 | RADIOLOGY REPORT (SQ) ---
EXAM DESCRIPTION: CT HEAD WITHOUT IMAGES COMPLETED DATE/TIME: 05/08/2020 5:04 pm REASON FOR STUDY: AMS COMPARISON: CT brain 03/21/2020, 09/14/2017, 01/06/2014, 05/07/2008 TECHNIQUE: Axial images acquired through the brain without intravenous contrast. Images reviewed wi th bone, brain and subdural windows. Additional sagittal and coronal reconstructions were generated. Images stored on PACS. All CT scanners at this facility use dose modulation, iterative reconstruction, and/or weight based d osing when appropriate to reduce radiation dose to as low as reasonably achievable (ALARA). [facility]: Dose Right [facility]: CareDose [facility]: Dose Right [facility]: Teradose 4D [facility]: Smart [employer] RADIATION DOSE: CT Rad equipment meets quality standard of care and radiation dose reduction techniq ues were employed. CTDIvol: 53.2 mGy. DLP: 991 mGy-cm. mGy. LIMITATIONS: None. FINDINGS: VENTRICLES: Normal size and contour. CEREBRUM: No masses. No hemorrhage. No midline shift. No evidence for acute infarction. Normal gra y/white matter differentiation. No areas of low density in the white matter. CEREBELLUM: No masses. No hemorrhage. No alteration of density. No evidence for acute infarction. EXTRAAXIAL SPACES: No acute intracranial hemorrhage. 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 This is similar compared to previous studies. ORBITS AND GLOBE: No intra- or extraconal masses. Normal contour of globe without masses. CALVARIUM: No fracture. PARANASAL SINUSES: No fluid or mucosal thickening. SOFT TISSUES: No mass or hematoma. OTHER: No other significant finding. IMPRESSION: No acute findings. Stable ectasia of the basilar artery EVIDENCE OF ACUTE STROKE: NO. COMMENT: Quality ID # [id number]: Final reports with documentation of one or more dose reduction techniques (e.g., Automated exposure control, adjustment of the mA and/or kV according to patient size, use of iterative reconstruction technique) TECHNICAL DOCUMENTATION: JOB ID: [id number] [employer]- All Rights Reserved Reading location - IP/workstation name: [id number]
--- NOTE | 2020-05-08 17:33 | RADIOLOGY REPORT (SQ) ---
EXAM DESCRIPTION: CHEST SINGLE VIEW IMAGES COMPLETED DATE/TIME: 05/08/2020 5:07 pm REASON FOR STUDY: AMS COMPARISON: Chest films 03/30/2020, 03/26/2020 EXAM PARAMETERS: NUMBER OF VIEWS: One view. TECHNIQUE: Single frontal radiographic view of the chest acquired. RADIATION DOSE: NA LIMITATIONS: Portable technique FINDINGS: LUNGS AND PLEURA: Minimal left retrocardiac atelectasis. Lungs otherwise grossly clear. No pleural effusion. No pneumothorax. MEDIASTINUM AND HILAR STRUCTURES: No masses. Contour normal. HEART AND VASCULAR STRUCTURES: Stable cardiomegaly BONES: No acute findings. HARDWARE: None in the chest. OTHER: No other significant finding. IMPRESSION: Minimal left retrocardiac atelectasis TECHNICAL DOCUMENTATION: JOB ID: [id number] 2010 [employer]- All Rights Reserved Reading location - IP/workstation name: [id number]
[2020-05-08 17:37] LABS: ALBUMIN 2.7 g/dL (3.5-5.0); ALKALINE PHOSPHATASE 73 U/L (38-126); ASPARTATE AMINO TRANSFERASE 25 U/L (14-36); BILIRUBIN,TOTAL 0.5 mg/dL (0.2-1.3); BLOOD UREA NITROGEN 19 mg/dL (7-20); CALCIUM 8.4 mg/dL (8.4-10.2); CHLORIDE 89 mmol/L (98-107); GLUCOSE 104 mg/dL (75-110); POTASSIUM 4.5 mmol/L (3.6-5.0); TOTAL PROTEIN 5.6 g/dL (6.3-8.2)
[2020-05-08 17:48] LABS: TROPONIN I 0.012 ng/mL
[2020-05-08 18:02] LABS: CARBON DIOXIDE 48 mmol/L (22-30)
[2020-05-08 19:51] LABS: APPEARANCE,URINE CLEAR; BILIRUBIN,URINE NEGATIVE (NEGATIVE); COLOR,URINE YELLOW; GLUCOSE, URINE NEGATIVE (NEGATIVE); KETONES,URINE NEGATIVE (NEGATIVE); LEUKOCYTE ESTERASE,URINE NEGATIVE (NEGATIVE); NITRITE,URINE NEGATIVE (NEGATIVE); PROTEIN,URINE NEGATIVE (NEGATIVE); URINE SPECIFIC GRAVITY 1.019
--- NOTE | 2020-05-08 20:22 | ER Document Report ---
ED General - General Chief Complaint: ALtered LOC Stated Complaint: ALTERED MENTAL STATUS Time Seen by Provider: 05/08/20 16:44 Mode of Arrival: Medic Notes: Patient is an 84 year old female that comes to the Emergency Department for chief complaint of altered mental status, confusion, lethargy. Patient comes from [facility] by EMS. Patient denies any complaints including chest pain, abdominal pain, headache. Patient is oriented to person, year, and she states "I think I am in the ICU" when I asked. No reported fever, cough, or any other complaints. Patient has complicated past medical history including CHF, atrial fibrillation, asthma, COPD, dementia, obesity. TRAVEL OUTSIDE OF THE [place] IN LAST 30 DAYS: No - Related Data Allergies/Adverse Reactions: meperidine HCl [From Demerol] Allergy (Severe, Verified 03/21/20 03:24) Past Medical History - General Information source: Patient, Transfer Record, Emergency Med Personnel - Social History Smoking Status: Unknown if Ever Smoked Frequency of alcohol use: None Lives with: [facility] Family History: Reviewed & Not Pertinent Patient has homicidal ideation: No - Past Medical History Cardiac Medical History: Reports: Hx Atrial Fibrillation, Hx Hypercholesterolemia, Hx Hypertension Denies: Hx Heart Attack Pulmonary Medical History: Reports: Hx Asthma, Hx COPD, Hx Sleep Apnea - doesn't use cpap Neurological Medical History: Denies: Hx Cerebrovascular Accident, Hx Seizures Endocrine Medical History: Reports: Hx Hypothyroidism Renal/ Medical History: Denies: Hx Peritoneal Dialysis GI Medical History: Reports: Hx Gastroesophageal Reflux Disease, Hx Hiatal Hernia. Denies: Hx Ulcer Musculoskeletal Medical History: Reports Hx Arthritis Psychiatric Medical History: Reports: Hx Depression Past Surgical History: Reports: Hx Appendectomy, Hx Orthopedic Surgery - bilat knee, Hx Tonsillectomy, Hx Tubal Ligation. Denies: Hx Hysterectomy, Hx Open Heart Surgery - Immunizations Hx Diphtheria, Pertussis, Tetanus Vaccination: Yes Hx Pneumococcal Vaccination: 09/03/12 Review of Systems - Review of Systems Constitutional: See HPI EENT: No symptoms reported Cardiovascular: No symptoms reported Respiratory: No symptoms reported Gastrointestinal: No symptoms reported Genitourinary: No symptoms reported Female Genitourinary: No symptoms reported Musculoskeletal: No symptoms reported Skin: No symptoms reported Hematologic/Lymphatic: No symptoms reported Neurological/Psychological: See HPI Physical Exam - Vital signs Vitals: Temp 97.5 F 05/08/20 16:18 - Notes Notes: GENERAL: Drowsy, sleeping with her mouth open, however she is arousable to voice and responds to questions appropriately HEAD: Normocephalic, atraumatic. EYES: Pupils equal, round, and reactive to light. Extraocular movements intact. ENT: Oral mucosa moist, tongue midline. Oropharynx unremarkable. Airway patent. NECK: Full range of motion. Supple. Trachea midline. No lymphadenopathy. LUNGS: Clear to auscultation bilaterally, no wheezes, rales, or rhonchi. No respiratory distress. Non-tender chest wall. HEART: Regular rate and rhythm. No murmur ABDOMEN: Soft, non-tender. Non-distended. EXTREMITIES: Moves all 4 extremities spontaneously. Chronic skin changes to the lower extremities but no overt/pitting edema, normal radial and dorsalis pedis pulses bilaterally. No cyanosis. BACK: no cervical, thoracic, lumbar midline tenderness. No saddle anesthesia, normal distal neurovascular exam. Moves all extremities in full range of motion. NEUROLOGICAL: Alert and oriented to person but not to place. Normal speech. Cranial nerves II through XII grossly intact. Strength 5/5 in all extremities. SKIN: Warm, dry, normal turgor. No rashes or lesions noted. Course - Re-evaluation Re-evalutation: Patient is well-appearing but drowsy, she does arouse to voice, vital signs are unremarkable, patient is noted to be on 4 L nasal cannula but reportedly that she is on this at the assisted. Patient is oriented to year, person, confused to events, uncertain of place. CT of the head unremarkable, chest x-ray unremarkable, CBC nonspecific, chemistry shows very elevated bicarbonate at 43. Blood gas was ordered and delayed unfortunately. Urinalysis unremarkable. 05/08/20 21:45 Finally we were able to obtain the ABG. This does show respiratory acidosis with pH of 7.32 and CO2 which is very elevated at 97.2. Patient's average in the past is in the 50s with her chronic respiratory failure and COPD. Oxygen is also very elevated. Patient was decreased to 2 L nasal cannula and we will be placing BiPAP for her hypercarbia. I did discuss and reevaluate with patient at bedside, she remains arousable to voice but remains very drowsy. Discussed with Dr. Foley. Discussed with Dr. Arnold, patient's provider, patient accepted to telemetry full admission. - Vital Signs Vital signs: Temp Pulse Resp BP Pulse Ox 97.9 F 60 16 141/81 H 92 05/09/20 03:39 05/09/20 03:39 05/09/20 03:39 05/09/20 03:39 05/09/20 03:39 - Laboratory Result Diagrams: 05/08/20 16:53 05/09/20 00:48 Laboratory results interpreted by me: 05/08/20 05/08/20 05/08/20 16:53 16:53 16:53 RBC 3.35 L Hgb 10.5 L Hct 31.9 L RDW 15.3 H PT 17.3 H Carbonic Acid ABG pH ABG pCO2 ABG pO2 ABG HCO3 ABG Total CO2 ABG O2 Saturation Sodium 134.0 L Chloride 89 L Carbon Dioxide 48 H* Creatinine 0.43 L NT-Pro-B Natriuret Pep Total Protein 5.6 L Albumin 2.7 L Urine Urobilinogen 05/08/20 05/08/20 05/08/20 16:53 19:19 20:59 RBC Hgb Hct RDW PT Carbonic Acid 2.93 H ABG pH 7.32 L ABG pCO2 97.2 H* ABG pO2 237.5 H ABG HCO3 48.7 H ABG Total CO2 51.7 H ABG O2 Saturation 99.4 H Sodium Chloride Carbon Dioxide Creatinine NT-Pro-B Natriuret Pep 1330 H Total Protein Albumin Urine Urobilinogen 4.0 H - EKG Interpretation by Me Additional EKG results interpreted by me: EKG shows heart rate of 57, atrial fibrillation, QTC of 444, there is also some artifact. No T wave inversions or ST segment changes in consecutive leads. Discharge - Discharge Clinical Impression: Lethargy, Confusion, Hypercarbia Condition: Stable Disposition: ADMITTED INPATIENT Admitting Provider: [facility] Admitted: Telemetry
--- NOTE | 2020-05-08 20:42 | EKG REPORT ---
SEVERITY:- ABNORMAL ECG - ATRIAL FIBRILLATION BORDERLINE LEFT AXIS DEVIATION CONSIDER ANTEROSEPTAL INFARCT : Confirmed by: Hitesh Singh MD 08-May-2020 20:42:05
[2020-05-08 21:16] LABS: ARTERIAL BLOOD BASE EXCESS 18.8 mmol/L; ARTERIAL BLOOD H2CO3 2.93 mmol/L (1.05-1.35); ARTERIAL BLOOD HCO3 48.7 mmol/L (20-24); ARTERIAL BLOOD O2 SATURATION 99.4 % (94-98); ARTERIAL BLOOD PH 7.32 (7.35-7.45); ARTERIAL BLOOD PO2 237.5 mmHg (80-100); ARTERIAL BLOOD TOTAL CO2 51.7 mmol/L (21-25)
[2020-05-08 21:27] LABS: ARTERIAL BLOOD FIO2 4L
[2020-05-08 21:28] LABS: ARTERIAL BLOOD PCO2 97.2 mmHg (35-45)
[2020-05-08] MEDS ORDERED: IPRATROPIUM/ALBUTEROL 0.5-2.5 MG/3 ML AMPUL NEB PRN (22:18)
[2020-05-08] MEDS ORDERED: APIXABAN 5 MG TABLET PO ONE (22:45)
[2020-05-08 23:55] LABS: URINE AMPHETAMINES SCREEN NEGATIVE; URINE BARBITURATES SCREEN NEGATIVE; URINE BENZODIAZEPINES SCREEN NEGATIVE; URINE COCAINE SCREEN NEGATIVE; URINE MARIJUANA (THC) SCREEN NEGATIVE; URINE METHADONE SCREEN NEGATIVE; URINE PHENCYCLIDINE SCREEN NEGATIVE
[2020-05-09] MEDS: RINGERS SOLUTION,LACTATED 1,000 ML IV PRN (00:12)
[2020-05-09 01:09] LABS: INTERNATIONAL RATION (INR) 1.64; PROTHROMBIN TIME 19.6 SEC (11.4-15.4)
[2020-05-09 01:10] LABS: PARTIAL THROMBOPLASTIN TIME 37.3 SEC (23.5-35.8)
[2020-05-09 01:31] LABS: BLOOD UREA NITROGEN 20 mg/dL (7-20); CALCIUM 8.6 mg/dL (8.4-10.2); CHLORIDE 91 mmol/L (98-107); GLUCOSE 88 mg/dL (75-110); PHOSPHORUS 3.6 mg/dL (2.5-4.5); POTASSIUM 4.6 mmol/L (3.6-5.0)
[2020-05-09 01:32] LABS: AMYLASE < 30 U/L (30-110)
[2020-05-09 01:41] LABS: ANION GAP 0 (5-19); CARBON DIOXIDE 46 mmol/L (22-30)
[2020-05-09 01:44] LABS: CREATINE KINASE MB 0.44 ng/mL (<4.55)
[2020-05-09 01:54] LABS: TROPONIN I < 0.012 ng/mL
[2020-05-09 02:32] LABS: FREE T4 (FREE THYROXINE) 1.33 ng/dL (0.78-2.19)
[2020-05-09 02:45] LABS: THYROID STIMULATING HORMONE 4.87 uIU/mL (0.47-4.68)
[2020-05-09 06:32] LABS: ARTERIAL BLOOD BASE EXCESS 16.2 mmol/L; ARTERIAL BLOOD H2CO3 2.13 mmol/L (1.05-1.35); ARTERIAL BLOOD HCO3 43.6 mmol/L (20-24); ARTERIAL BLOOD O2 SATURATION 93.3 % (94-98); ARTERIAL BLOOD PH 7.41 (7.35-7.45); ARTERIAL BLOOD PO2 69.3 mmHg (80-100); ARTERIAL BLOOD TOTAL CO2 45.8 mmol/L (21-25)
[2020-05-09 06:34] LABS: ARTERIAL BLOOD FIO2 30%
[2020-05-09 06:36] LABS: ARTERIAL BLOOD PCO2 70.6 mmHg (35-45)
[2020-05-09 06:46] LABS: ABSOLUTE EOSINOPHILS # (AUTO) 0.1 10^3/uL (0.0-0.6); ABSOLUTE LYMPHOCYTES (AUTO) 0.9 10^3/uL (0.5-4.7); ABSOLUTE MONOCYTES (AUTO) 0.3 10^3/uL (0.1-1.4); ABSOLUTE NEUT (AUTO) 2.2 10^3/uL (1.7-8.2); BASOPHILS % (AUTO) 0.6 % (0-2); EOSINOPHILS % (AUTO) 3.5 % (0-6); HEMATOCRIT 31.6 % (36.0-47.0); HEMOGLOBIN 10.3 g/dL (12.0-15.5); LYMPHOCYTES % (AUTO) 25.1 % (13-45); MEAN CORPUSCULAR HEMOGLOBIN 30.9 pg (27.0-33.4); MEAN CORPUSCULAR HGB CONC 32.7 g/dL (32.0-36.0); MEAN CORPUSCULAR VOLUME 95 fl (80-97); MONOCYTES % (AUTO) 8.5 % (3-13); PLATELET COUNT 150 10^3/uL (150-450); RED BLOOD COUNT 3.34 10^6/uL (3.72-5.28); RED CELL DISTRIBUTION WIDTH 15.3 % (11.5-14.0); SEGMENTED NEUTROPHILS % (AUTO) 62.3 % (42-78); TOTAL CELLS COUNTED % (AUTO) 100 %; WHITE BLOOD COUNT 3.5 10^3/uL (4.0-10.5)
[2020-05-09 07:02] LABS: CHOLESTEROL 83.44 mg/dL (0-200); TRIGLYCERIDES 114 mg/dL (<150)
[2020-05-09 07:12] LABS: CREATINE KINASE MB 0.38 ng/mL (<4.55)
[2020-05-09 07:14] LABS: CREATINE KINASE < 20 U/L (30-135); DIRECT LDL < 30 mg/dL (<100)
[2020-05-09 07:15] LABS: TROPONIN I < 0.012 ng/mL
[2020-05-09] MEDS: APIXABAN 5 MG TABLET PO SCH ×2 (09:48→17:19)
[2020-05-09] MEDS: METOPROLOL SUCCINATE 50 MG TAB.SR.24H PO SCH (12:56)
[2020-05-09] MEDS: LEVOTHYROXINE SODIUM 0.112 MG TABLET PO SCH (12:56)
[2020-05-09] MEDS: LOSARTAN POTASSIUM 50 MG TABLET PO SCH (12:58)
[2020-05-09 13:17] LABS: CREATINE KINASE MB 0.52 ng/mL (<4.55); TROPONIN I 0.017 ng/mL
[2020-05-09] MEDS ORDERED: (PENDING PHARMACY ID) (Sertraline Hcl [Zoloft] 50 MG) PO SCH (20:15)
[2020-05-09] MEDS ORDERED: (PENDING PHARMACY ID) (Nitrofurantoin Macrocrystal [Macrodantin] 100 MG) PO SCH (20:15)
--- NOTE | 2020-05-09 20:28 | PDOC H&P ---
History of Present Illness Admission Date/PCP: 05/08/20 22:05 NIKKI MCCULLOUGH MD History of Present Illness: GIUSEPPE RINCON is a 84 year old female, She has multiple comorbid conditions i ncluding obesity associated hypoventilation syndrome, obstructive sleep apnea, permanent atrial fibrillation, she is presently in the senior care at [facility] undergoing physical therapy, I received a call from the senior care yesterday evening that patient was not responding. I was particularly concerned that she has developed CO2 narcosis. She had similar experience previously the last time she was admitted I suggested that patient should be transfer to the emergency room for evaluation which they did. In the emergency room she was evaluated she was found to have acute hypercapnic respiratory acidosis, the arterial blood gas, CO2 97.2 pH 7.32 patient breathing was supported with noninvasive positive pressure ventilation, BiPAP Past Medical History Cardiac Medical History: Reports: Atrial Fibrillation, Hyperlipidema, Hypertension Pulmonary Medical History: Reports: Asthma, Chronic Obstructive Pulmonary Disease (COPD), Sleep Apnea - doesn't use cpap, Other - Obesity associated hypoventilation syndrome Endocrine Medical History: Reports: Hypothyroidism GI Medical History: Reports: Gastroesophageal Reflux Disease, Hiatal Hernia Musculoskeltal Medical History: Reports: Arthritis Psychiatric Medical History: Reports: Depression Hematology: Denies: Anemia Past Surgical History Past Surgical History: Reports: Appendectomy, Orthopedic Surgery - bilat knee, Tonsillectomy, Tubal Ligation Social History Lives with: [facility] Smoking Status: Unknown if Ever Smoked Electronic Cigarette use?: No Frequency of Alcohol Use: None Hx Recreational Drug Use: No Drugs: None Hx Prescription Drug Abuse: No Family History Family History: Reviewed & Not Pertinent Parental Family History Reviewed: Yes Children Family History Reviewed: Yes Sibling(s) Family History Reviewed.: Yes Medication/Allergy Home Medications: Atorvastatin Calcium [Lipitor 40 mg Tablet] 40 mg PO QHS 12/03/17 Sertraline HCl [Zoloft] 50 mg PO DAILY 12/03/17 Metoprolol Succinate [Toprol Xl 50 mg Tab.sr] 200 mg PO DAILY 03/22/19 Nitrofurantoin Macrocrystal [Macrodantin] 100 mg PO DAILY 03/22/19 Omeprazole 40 mg PO DAILY 03/22/19 Tramadol HCl [Ultram 50 mg Tablet] 50 mg PO Q6HP PRN #120 tablet 03/25/19 Alprazolam 1 mg PO DAILY 03/21/20 Levothyroxine Sodium [Levoxyl] 112 mcg PO DAILY 03/21/20 Losartan Potassium 50 mg PO DAILY 03/21/20 Memantine HCl/Donepezil HCl [Namzaric 28 mg-10 mg Capsule] 1 cap PO QHS 03/21/20 Allergies/Adverse Reactions: meperidine HCl [From Demerol] Allergy (Severe, Verified 03/21/20 03:24) Review of Systems Constitutional: ABSENT: chills, fever(s), headache(s), weight gain, weight loss Eyes: ABSENT: visual disturbances Ears: ABSENT: hearing changes Cardiovascular: ABSENT: chest pain, dyspnea on exertion, edema, orthropnea, palpitations Respiratory: ABSENT: cough, hemoptysis Gastrointestinal: ABSENT: abdominal pain, constipation, diarrhea, hematemesis, hematochezia, nausea, vomiting Genitourinary: ABSENT: dysuria, hematuria Musculoskeletal: ABSENT: joint swelling Integumentary: ABSENT: rash, wounds Neurological: PRESENT: confusion Psychiatric: ABSENT: anxiety, depression, homidical ideation, suicidal ideation Endocrine: ABSENT: cold intolerance, heat intolerance, menstrual abnormalities, polydipsia, polyuria Hematologic/Lymphatic: ABSENT: easy bleeding, easy bruising, lymphadenopathy Physical Exam Vital Signs: Temp Pulse Resp BP Pulse Ox 98.4 F 63 20 146/109 H 97 05/09/20 16:11 05/09/20 16:11 05/09/20 16:11 05/09/20 16:11 05/09/20 16:11 Intake & Output 05/08/20 05/09/20 05/10/20 06:59 06:59 06:59 Intake Total 260 480 Output Total 0 Balance 260 480 Weight 120.5 kg General appearance: PRESENT: morbidly obese Head exam: PRESENT: atraumatic, normocephalic Eye exam: PRESENT: PERRLA Ear exam: PRESENT: normal external ear exam Mouth exam: PRESENT: moist, tongue midline Neck exam: PRESENT: full ROM Respiratory exam: PRESENT: clear to auscultation mary Cardiovascular exam: PRESENT: RRR, +S1, +S2 Pulses: PRESENT: normal dorsalis pedis pul, +2 pedal pulses bilateral Vascular exam: PRESENT: normal capillary refill GI/Abdominal exam: PRESENT: normal bowel sounds, soft Rectal exam: PRESENT: deferred Neurological exam: PRESENT: alert, CN II-XII grossly intact Psychiatric exam: PRESENT: appropriate affect, normal mood Skin exam: PRESENT: dry, intact, warm Results Laboratory Results: 05/09/20 05:45 05/09/20 00:48 05/08/20 05/09/20 05/09/20 20:59 00:48 00:48 WBC RBC Hgb Hct MCV MCH MCHC RDW Plt Count Seg Neutrophils % Carbonic Acid 2.93 H HCO3/H2CO3 Ratio 16:1 ABG pH 7.32 L ABG pCO2 97.2 H* ABG pO2 237.5 H ABG HCO3 48.7 H ABG O2 Saturation 99.4 H ABG Base Excess 18.8 FiO2 4L Sodium 135.9 L Potassium 4.6 Chloride 91 L Carbon Dioxide 46 H* Anion Gap 0 L BUN 20 Creatinine 0.39 L Est GFR ( Amer) > 60 Glucose 88 Calcium 8.6 Phosphorus 3.6 Magnesium 1.6 Ammonia < 8.7 L Triglycerides Cholesterol LDL Cholesterol Direct VLDL Cholesterol HDL Cholesterol Amylase < 30 L Lipase 24.7 TSH Free T4 05/09/20 05/09/20 05/09/20 00:48 05:45 05:45 WBC 3.5 L RBC 3.34 L Hgb 10.3 L Hct 31.6 L MCV 95 MCH 30.9 MCHC 32.7 RDW 15.3 H Plt Count 150 Seg Neutrophils % 62.3 Carbonic Acid HCO3/H2CO3 Ratio ABG pH ABG pCO2 ABG pO2 ABG HCO3 ABG O2 Saturation ABG Base Excess FiO2 Sodium Potassium Chloride Carbon Dioxide Anion Gap BUN Creatinine Est GFR ( Amer) Glucose Calcium Phosphorus Magnesium Ammonia Triglycerides 114 Cholesterol 83.44 LDL Cholesterol Direct < 30 VLDL Cholesterol 23.0 HDL Cholesterol 43 Amylase Lipase TSH 4.87 H Free T4 1.33 05/09/20 06:05 WBC RBC Hgb Hct MCV MCH MCHC RDW Plt Count Seg Neutrophils % Carbonic Acid 2.13 H HCO3/H2CO3 Ratio 20:1 ABG pH 7.41 ABG pCO2 70.6 H* ABG pO2 69.3 L ABG HCO3 43.6 H ABG O2 Saturation 93.3 L ABG Base Excess 16.2 FiO2 30% Sodium Potassium Chloride Carbon Dioxide Anion Gap BUN Creatinine Est GFR ( Amer) Glucose Calcium Phosphorus Magnesium Ammonia Triglycerides Cholesterol LDL Cholesterol Direct VLDL Cholesterol HDL Cholesterol Amylase Lipase TSH Free T4 05/08/20 05/09/20 05/09/20 16:53 00:48 00:48 Creatine Kinase < 20 L CK-MB (CK-2) 0.44 Troponin I 0.012 < 0.012 NT-Pro-B Natriuret Pep 1330 H 05/09/20 05/09/20 05/09/20 05:45 05:45 12:30 Creatine Kinase < 20 L < 20 L CK-MB (CK-2) 0.38 Troponin I < 0.012 NT-Pro-B Natriuret Pep 05/09/20 12:30 Creatine Kinase CK-MB (CK-2) 0.52 Troponin I 0.017 NT-Pro-B Natriuret Pep Impressions: Chest X-Ray 05/08/20 16:50 IMPRESSION: Minimal left retrocardiac atelectasis Head CT 05/08/20 16:50 IMPRESSION: No acute findings. Stable ectasia of the basilar artery EVIDENCE OF ACUTE STROKE: NO. Assessment & Plan - Diagnosis (1) Acute hypercapnic respiratory failure Is this a current diagnosis for this admission?: Yes Plan: Patient presently requires noninvasive positive pressure ventilation, BiPAP (2) Hypoventilation associated with obesity syndrome Is this a current diagnosis for this admission?: Yes Plan: This is a challenging problem for this patient, she is very elderly I am not sure how much weight loss she can achieve with severe deconditioning she was in the senior care essentially for rehabilitation when I saw her the last time in the senior care she has not been able to achieve any meaningful ambulation. this as a recurrent problem unless she loses weight this portends a poor prognosis for this patient (3) Permanent atrial fibrillation Is this a current diagnosis for this admission?: Yes Plan: Continue anticoagulation with Eliquis for stroke prophylaxis (4) Hypothyroidism Qualifiers: Hypothyroidism type: acquired Qualified Code(s): E03.9 - Hypothyroidism, unspecified Is this a current diagnosis for this admission?: Yes
[2020-05-09] MEDS: PANTOPRAZOLE SODIUM 40 MG TABLET.DR PO SCH (21:02)
[2020-05-09] MEDS: SERTRALINE HCL 50 MG TABLET PO SCH (21:02)
[2020-05-09] MEDS: ATORVASTATIN CALCIUM 40 MG TABLET PO SCH (21:02)
[2020-05-09] MEDS: TRAMADOL HCL 50 MG TABLET PO PRN (21:02)
[2020-05-09] MEDS: NITROFURANTOIN MONOHYD/M-CRYST 100 MG CAPSULE PO SCH (21:02)
[2020-05-09] MEDS ORDERED: (PENDING PHARMACY ID) (Memantine Hcl/Donepezil Hcl [Namzaric 28 Mg-10 Mg Capsule] 1 CAP) PO SCH (22:00)
[2020-05-10 06:28] LABS: ABSOLUTE EOSINOPHILS # (AUTO) 0.1 10^3/uL (0.0-0.6); ABSOLUTE LYMPHOCYTES (AUTO) 0.8 10^3/uL (0.5-4.7); ABSOLUTE MONOCYTES (AUTO) 0.3 10^3/uL (0.1-1.4); ABSOLUTE NEUT (AUTO) 2.1 10^3/uL (1.7-8.2); BASOPHILS % (AUTO) 0.9 % (0-2); EOSINOPHILS % (AUTO) 4.3 % (0-6); HEMATOCRIT 30.7 % (36.0-47.0); HEMOGLOBIN 10.2 g/dL (12.0-15.5); LYMPHOCYTES % (AUTO) 22.8 % (13-45); MEAN CORPUSCULAR HEMOGLOBIN 30.9 pg (27.0-33.4); MEAN CORPUSCULAR HGB CONC 33.2 g/dL (32.0-36.0); MEAN CORPUSCULAR VOLUME 93 fl (80-97); MONOCYTES % (AUTO) 9.3 % (3-13); PLATELET COUNT 153 10^3/uL (150-450); RED CELL DISTRIBUTION WIDTH 15.5 % (11.5-14.0); SEGMENTED NEUTROPHILS % (AUTO) 62.7 % (42-78); TOTAL CELLS COUNTED % (AUTO) 100 %; WHITE BLOOD COUNT 3.4 10^3/uL (4.0-10.5)
[2020-05-10] MEDS: METOPROLOL SUCCINATE 50 MG TAB.SR.24H PO SCH (09:29)
[2020-05-10] MEDS: APIXABAN 5 MG TABLET PO SCH ×2 (09:29→20:17)
[2020-05-10] MEDS: PANTOPRAZOLE SODIUM 40 MG TABLET.DR PO SCH (09:32)
[2020-05-10] MEDS: LEVOTHYROXINE SODIUM 0.112 MG TABLET PO SCH (09:33)
[2020-05-10] MEDS: LOSARTAN POTASSIUM 50 MG TABLET PO SCH (09:33)
[2020-05-10] MEDS: SERTRALINE HCL 50 MG TABLET PO SCH (09:33)
[2020-05-10] MEDS: RINGERS SOLUTION,LACTATED 1,000 ML IV PRN (10:00)
--- NOTE | 2020-05-10 15:31 | PDOC CONSULTATION ---
Consultation-Blank Consultation: CONSULTATION by Dr. Carmelina Plaza on 05/10/2020. Patient seen at 3:30 PM. 60 minutes spent on patient more than 50% of time spent in direct patient care. CONSULT REQUESTING PHYSICIAN: Dr. Arnold REASON FOR CONSULTATION: Patient with chest pain. HISTORY OF PRESENT ILLNESS: History limited by the patient's not being a good historian and also has mild dementia. Patient is a 84-year-old female with morbid obesity, obstructive sleep apnea but does not wear CPAP, hypertension, and hypothyroidism, and chronic atrial fibrillation admitted with increasing shortness of breath and found to be in acute on chronic respiratory failure with hypercapnia. The patient was placed on BiPAP but the patient keeps taking it off. She also takes off nasal cannula. Sometime ago the patient started having chest pain which lasted for at least 15 minutes. The patient is not able to describe the quality of the chest pain but states it is in the lower front of the chest. At present she states his chest pain is gone. 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 She denies shortness of breath but appears to be short of breath. Her ABGs came back with a significantly elevated PCO2 suggesting of hypercapnic respiratory failure and continue. She denies any palpitation, but the patient had chronic atrial fibrillation with a controlled ventricular response. The patient is also on Eliquis. There is no complaints of focal limb weakness. There is no documented history of coronary artery disease or prior NM. 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 She has a history of obstructive sleep apnea but does not use CPAP or BiPAP. At present in spite of advised to be on BiPAP she removed that and is on nasal cannula. Past Medical History Cardiac Medical History: Reports: Atrial Fibrillation, Hyperlipidema, Hypertension Pulmonary Medical History: Reports: Asthma, Chronic Obstructive Pulmonary Disease (COPD), Sleep Apnea - doesn't use cpap, Other - Obesity associated hypoventilation syndrome Endocrine Medical History: Reports: Hypothyroidism GI Medical History: Reports: Gastroesophageal Reflux Disease, Hiatal Hernia Musculoskeltal Medical History: Reports: Arthritis Psychiatric Medical History: Reports: Depression Hematology: Denies: Anemia Past Surgical History Past Surgical History: Reports: Appendectomy, Orthopedic Surgery - bilat knee, Tonsillectomy, Tubal Ligation Social History Lives with: [facility] Smoking Status: Non-smoker Electronic Cigarette use?: No Frequency of Alcohol Use: None Hx Recreational Drug Use: No Drugs: None Hx Prescription Drug Abuse: No RESUSCITATION STATUS: The patient is a full code. The patient's daughter is a surrogate healthcare decision maker. Family History Family History: Reviewed & Not Pertinent Parental Family History Reviewed: Yes Children Family History Reviewed: Yes Sibling(s) Family History Reviewed.: Yes Medication/Allergy Home Medications: Atorvastatin Calcium [Lipitor 40 mg Tablet] 40 mg PO QHS 12/03/17 Sertraline HCl [Zoloft] 50 mg PO DAILY 12/03/17 Metoprolol Succinate [Toprol Xl 50 mg Tab.sr] 200 mg PO DAILY 03/22/19 Nitrofurantoin Macrocrystal [Macrodantin] 100 mg PO DAILY 03/22/19 Omeprazole 40 mg PO DAILY 03/22/19 Tramadol HCl [Ultram 50 mg Tablet] 50 mg PO Q6HP PRN #120 tablet 03/25/19 Alprazolam 1 mg PO DAILY 03/21/20 Levothyroxine Sodium [Levoxyl] 112 mcg PO DAILY 03/21/20 Losartan Potassium 50 mg PO DAILY 03/21/20 Memantine HCl/Donepezil HCl [Namzaric 28 mg-10 mg Capsule] 1 cap PO QHS 03/21/20 Allergies/Adverse Reactions: meperidine HCl [From Demerol] Allergy (Severe, Verified 03/21/20 03:24) Current Medications Generic Name Dose Route Start Last Admin Trade Name Freq PRN Reason Stop Dose Admin Albuterol/Ipratropium 3 ml 05/08/20 22:18 Duoneb 3 Ml Ampul NEB 06/07/20 22:17 [id number] PRN SHORTNESS OF BREATH Apixaban 5 mg 05/09/20 10:00 05/10/20 09:29 Eliquis 5 Mg Tablet PO 06/08/20 09:59 5 mg BID MICHELE Administration Atorvastatin Calcium 40 mg 05/09/20 22:00 05/09/20 21:02 Lipitor 40 Mg Tablet PO 06/08/20 21:59 40 mg QHS MICHELE Administration Lactated Ringer's 1,000 mls @ 30 mls/hr 05/08/20 22:18 05/09/20 00:12 Lactated Ringers 1000 Ml Iv Soln IV 06/07/20 22:17 30 mls/hr CONTINUOUS PRN Administration THIS MED IS NOT "PRN" Levothyroxine Sodium 0.112 mg 05/09/20 13:00 05/10/20 09:33 Synthroid 0.112 Mg Tablet PO 06/08/20 12:59 0.112 mg DAILY MICHELE Administration Losartan Potassium 50 mg 05/09/20 12:30 05/10/20 09:33 Cozaar 50 Mg Tablet PO 06/08/20 12:29 50 mg DAILY MICHELE Administration Metoprolol Succinate 200 mg 05/09/20 12:30 05/10/20 09:29 Toprol Xl 50 Mg Tab.Sr PO 06/08/20 12:29 200 mg DAILY MICHELE Administration Nitrofurantoin Macrocrystals 100 mg 05/09/20 21:00 05/09/20 21:02 Macrobid 100 Mg Capsule PO 05/16/20 20:59 100 mg DAILY MICHELE Administration Nitroglycerin 1 gm 05/10/20 18:00 Nitrol 2% Ointment 1gm Packet TP 06/09/20 17:59 Q6 MICHELE Pantoprazole Sodium 40 mg 05/09/20 21:00 05/10/20 09:[address] Tablet PO 06/08/20 20:59 40 mg DAILY MICHELE Administration Patient Own Medication 1 cap 05/09/20 22:00 Memantine Hcl/Donepezil Hcl [Namzaric 28 Mg-10 Mg Capsule] PO 06/08/20 21:59 .QHS MICHELE Sertraline HCl 50 mg 05/09/20 21:00 05/10/20 09:33 Zoloft 50 Mg Tablet PO 06/08/20 20:59 50 mg DAILY MICHELE Administration Tramadol HCl 50 mg 05/09/20 20:10 05/09/20 21:02 Ultram 50 Mg Tablet PO 05/16/20 20:09 50 mg Q6HP PRN Administration FOR PAIN Discontinued Medications Generic Name Dose Route Start Last Admin Trade Name Freq PRN Reason Stop Dose Admin Al Hydrox/Mg Hydrox/Simethicone Confirm 05/10/20 15:35 05/10/20 15:39 Maalox Plus Susp 30 Udcup Administered 05/10/20 15:36 30 ml Dose Administration 30 ml .ROUTE .STK-MED ONE Al Hydrox/Mg Hydrox/Simethicone 30 ml 05/10/20 16:00 05/10/20 17:14 Maalox Plus Susp 30 Udcup PO 05/10/20 16:01 Not Given NOW ONE Apixaban 5 mg 05/08/20 22:45 05/08/20 23:13 Eliquis 5 Mg Tablet PO 05/08/20 22:46 5 mg NOW ONE Administration Review of Systems Constitutional: ABSENT: chills, fever(s), headache(s), weight gain, weight loss Eyes: ABSENT: visual disturbances Ears: ABSENT: hearing changes Cardiovascular: chest pain, she has dyspnea on exertion and orthropnea. She denies leg edema or syncope or palpitations Respiratory: ABSENT: cough, hemoptysis Gastrointestinal: ABSENT: abdominal pain, constipation, diarrhea, hematemesis, hematochezia, nausea, vomiting Genitourinary: ABSENT: dysuria, hematuria Musculoskeletal: ABSENT: joint swelling Integumentary: ABSENT: rash, wounds Neurological: PRESENT: confusion Psychiatric: ABSENT: anxiety, depression, homidical ideation, suicidal ideation she has mild dementia. Endocrine: ABSENT: cold intolerance, heat intolerance, menstrual abnormalities, polydipsia, polyuria Hematologic/Lymphatic: ABSENT: easy bleeding, easy bruising, lymphadenopathy PHYSICAL EXAMINATION: The patient is morbidly obese. She appears to be slightly drowsy. Although she answers questions semi-appropriately I am not sure if she understands the questions. Selected Entries 05/10/20 05/10/20 14:42 15:30 Temperature 97.5 F Pulse Rate 61 Blood Pressure 150/94 H Blood Pressure 112 Mean O2 Sat by Pulse 96 Oximetry Fraction of 32 Inspired Oxygen (FIO2) Oxygen Flow 3 Rate HEAD: Is atraumatic normocephalic. EYES: Pupils are equal round regular reactive to light and accommodation. Extraocular movements are normal. There i s no conjunctival pallor. EARS: Tympanic membranes are intact. There is no lesions on the penis. Tympanic membranes are intact. NOSE: There is no deviated nasal septum. There is no inflammation of the nasal mucous membrane. MOUTH: Mucous membranes of mouth are moist tongue is moist. The patient's modified Mallampati class IV airway. THROAT: There is no redness of the oropharynx. There is no exudates. SKIN: There is no skin rashes. There is no petechia or ecchymosis. There is no skin lesions. There is no skin rashes. NECK: Supple. There is no JVD. Carotids are equal there is no bruit. There is no lymphadenopathy. There is no goiter. There is no accessory muscles of respiration use. Trachea central. LUNGS: There is diminished air entry and prolonged expiration. There is no rhonchi rales or wheezing. HEART: S1-S2 is heard. S1 is variable intensity. There is systolic murmur in the left sternal border and the apex there is no rub. ABDOMEN: Soft. Nontender obese. There is no paraspinal megaly. Bowel sounds are well heard. EXTREMITIES femorals are deep. Femorals are diminished. There is no femoral bruits. Leg pulses are diminished. There is no pedal edema. There is no DVT or cellulitis. There is no calf tenderness PUBLIC STENOGRAPHER: The patient's conscious slightly drowsy moves all 4 extremities. PSYCHIATRIC poor. Detailed testing not done due to patient's ment al status. She does not appear to be anxious or agitated. The patient serial to EKG shows atrial fibrillation with controlled ventricular response. Left axis deviation. 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 Labs- Entire Visit 05/08/20 05/08/20 05/08/20 16:53 16:53 16:53 WBC 5.0 RBC 3.35 L Hgb 10.5 L Hct 31.9 L MCV 95 MCH 31.2 MCHC 32.8 RDW 15.3 H Plt Count 171 Lymph % (Auto) 17.7 Banner % (Auto) 7.2 Eos % (Auto) 2.6 Baso % (Auto) 0.4 Absolute Neuts (auto) 3.6 Absolute Lymphs (auto) 0.9 Absolute Monos (auto) 0.4 Absolute Eos (auto) 0.1 Absolute Basos (auto) 0.0 Seg Neutrophils % 72.1 PT 17.3 H INR 1.40 APTT Carbonic Acid HCO3/H2CO3 Ratio ABG pH ABG pCO2 ABG pO2 ABG HCO3 ABG Total CO2 ABG O2 Saturation ABG Base Excess FiO2 Sodium 134.0 L Potassium 4.5 Chloride 89 L Carbon Dioxide 48 H* Anion Gap Not Reportable BUN 19 Creatinine 0.43 L Est GFR ( Amer) > 60 Est GFR (MDRD) Non-Af > 60 Glucose 104 POC Glucose Hemoglobin A1c % Calcium 8.4 Phosphorus Magnesium Total Bilirubin 0.5 Direct Bilirubin 0.0 Neonat Total Bilirubin Not Reportable Neonat Direct Bilirubin Not Reportable Neonat Indirect Bili Not Reportable AST 25 ALT 12 Alkaline Phosphatase 73 Ammonia Creatine Kinase CK-MB (CK-2) Troponin I NT-Pro-B Natriuret Pep Total Protein 5.6 L Albumin 2.7 L Triglycerides Cholesterol LDL Cholesterol Direct VLDL Cholesterol HDL Cholesterol Amylase Lipase TSH Free T4 Urine Color Urine Appearance Urine pH Ur Specific Chapman Urine Protein Urine Glucose (UA) Urine Ketones Urine Blood Urine Nitrite Urine Bilirubin Urine Urobilinogen Ur Leukocyte Esterase Urine WBC (Auto) Urine RBC (Auto) Urine Mucus (Auto) Urine Ascorbic Acid Urine Opiates Screen Urine Methadone Screen Ur Barbiturates Screen Ur Phencyclidine Scrn Ur Amphetamines Screen U Benzodiazepines Scrn Urine Cocaine Screen U Marijuana (THC) Screen 05/08/20 05/08/20 05/08/20 16:53 17:35 19:19 WBC RBC Hgb Hct MCV MCH MCHC RDW Plt Count Lymph % (Auto) Banner % (Auto) Eos % (Auto) Baso % (Auto) Absolute Neuts (auto) Absolute Lymphs (auto) Absolute Monos (auto) Absolute Eos (auto) Absolute Basos (auto) Seg Neutrophils % PT INR APTT Carbonic Acid HCO3/H2CO3 Ratio ABG pH ABG pCO2 ABG pO2 ABG HCO3 ABG Total CO2 ABG O2 Saturation ABG Base Excess FiO2 Sodium Potassium Chloride Carbon Dioxide Anion Gap BUN Creatinine Est GFR ( Amer) Est GFR (MDRD) Non-Af Glucose POC Glucose 97 Hemoglobin A1c % Calcium Phosphorus Magnesium Total Bilirubin Direct Bilirubin Neonat Total Bilirubin Neonat Direct Bilirubin Neonat Indirect Bili AST ALT Alkaline Phosphatase Ammonia Creatine Kinase CK-MB (CK-2) Troponin I 0.012 NT-Pro-B Natriuret Pep 1330 H Total Protein Albumin Triglycerides Cholesterol LDL Cholesterol Direct VLDL Cholesterol HDL Cholesterol Amylase Lipase TSH Free T4 Urine Color YELLOW Urine Appearance CLEAR Urine pH 6.0 Ur Specific Chapman 1.019 Urine Protein NEGATIVE Urine Glucose (UA) NEGATIVE Urine Ketones NEGATIVE Urine Blood NEGATIVE Urine Nitrite NEGATIVE Urine Bilirubin NEGATIVE Urine Urobilinogen 4.0 H Ur Leukocyte Esterase NEGATIVE Urine WBC (Auto) 1 Urine RBC (Auto) 1 Urine Mucus (Auto) OCC Urine Ascorbic Acid NEGATIVE Urine Opiates Screen Urine Methadone Screen Ur Barbiturates Screen Ur Phencyclidine Scrn Ur Amphetamines Screen U Benzodiazepines Scrn Urine Cocaine Screen U Marijuana (THC) Screen 05/08/20 05/08/20 05/09/20 19:19 20:59 00:48 WBC RBC Hgb Hct MCV MCH MCHC RDW Plt Count Lymph % (Auto) Banner % (Auto) Eos % (Auto) Baso % (Auto) Absolute Neuts (auto) Absolute Lymphs (auto) Absolute Monos (auto) Absolute Eos (auto) Absolute Basos (auto) Seg Neutrophils % PT 19.6 H INR 1.64 APTT 37.3 H Carbonic Acid 2.93 H HCO3/H2CO3 Ratio 16:1 ABG pH 7.32 L ABG pCO2 97.2 H* ABG pO2 237.5 H ABG HCO3 48.7 H ABG Total CO2 51.7 H ABG O2 Saturation 99.4 H ABG Base Excess 18.8 FiO2 4L Sodium Potassium Chloride Carbon Dioxide Anion Gap BUN Creatinine Est GFR ( Amer) Est GFR (MDRD) Non-Af Glucose POC Glucose Hemoglobin A1c % Calcium Phosphorus Magnesium Total Bilirubin Direct Bilirubin Neonat Total Bilirubin Neonat Direct Bilirubin Neonat Indirect Bili AST ALT Alkaline Phosphatase Ammonia Creatine Kinase CK-MB (CK-2) Troponin I NT-Pro-B Natriuret Pep Total Protein Albumin Triglycerides Cholesterol LDL Cholesterol Direct VLDL Cholesterol HDL Cholesterol Amylase Lipase TSH Free T4 Urine Color Urine Appearance Urine pH Ur Specific Chapman Urine Protein Urine Glucose (UA) Urine Ketones Urine Blood Urine Nitrite Urine Bilirubin Urine Urobilinogen Ur Leukocyte Esterase Urine WBC (Auto) Urine RBC (Auto) Urine Mucus (Auto) Urine Ascorbic Acid Urine Opiates Screen NEGATIVE Urine Methadone Screen NEGATIVE Ur Barbiturates Screen NEGATIVE Ur Phencyclidine Scrn NEGATIVE Ur Amphetamines Screen NEGATIVE U Benzodiazepines Scrn NEGATIVE Urine Cocaine Screen NEGATIVE U Marijuana (THC) Screen NEGATIVE 05/09/20 05/09/20 05/09/20 00:48 00:48 00:48 WBC RBC Hgb Hct MCV MCH MCHC RDW Plt Count Lymph % (Auto) Banner % (Auto) Eos % (Auto) Baso % (Auto) Absolute Neuts (auto) Absolute Lymphs (auto) Absolute Monos (auto) Absolute Eos (auto) Absolute Basos (auto) Seg Neutrophils % PT INR APTT Carbonic Acid HCO3/H2CO3 Ratio ABG pH ABG pCO2 ABG pO2 ABG HCO3 ABG Total CO2 ABG O2 Saturation ABG Base Excess FiO2 Sodium 135.9 L Potassium 4.6 Chloride 91 L Carbon Dioxide 46 H* Anion Gap 0 L BUN 20 Creatinine 0.39 L Est GFR ( Amer) > 60 Est GFR (MDRD) Non-Af > 60 Glucose 88 POC Glucose Hemoglobin A1c % Calcium 8.6 Phosphorus 3.6 Magnesium 1.6 Total Bilirubin Direct Bilirubin Neonat Total Bilirubin Neonat Direct Bilirubin Neonat Indirect Bili AST ALT Alkaline Phosphatase Ammonia < 8.7 L Creatine Kinase CK-MB (CK-2) Troponin I NT-Pro-B Natriuret Pep Total Protein Albumin Triglycerides Cholesterol LDL Cholesterol Direct VLDL Cholesterol HDL Cholesterol Amylase < 30 L Lipase 24.7 TSH 4.87 H Free T4 1.33 Urine Color Urine Appearance Urine pH Ur Specific Chapman Urine Protein Urine Glucose (UA) Urine Ketones Urine Blood Urine Nitrite Urine Bilirubin Urine Urobilinogen Ur Leukocyte Esterase Urine WBC (Auto) Urine RBC (Auto) Urine Mucus (Auto) Urine Ascorbic Acid Urine Opiates Screen Urine Methadone Screen Ur Barbiturates Screen Ur Phencyclidine Scrn Ur Amphetamines Screen U Benzodiazepines Scrn Urine Cocaine Screen U Marijuana (THC) Screen 05/09/20 05/09/20 05/09/20 00:48 00:48 05:45 WBC RBC Hgb Hct MCV MCH MCHC RDW Plt Count Lymph % (Auto) Banner % (Auto) Eos % (Auto) Baso % (Auto) Absolute Neuts (auto) Absolute Lymphs (auto) Absolute Monos (auto) Absolute Eos (auto) Absolute Basos (auto) Seg Neutrophils % PT INR APTT Carbonic Acid HCO3/H2CO3 Ratio ABG pH ABG pCO2 ABG pO2 ABG HCO3 ABG Total CO2 ABG O2 Saturation ABG Base Excess FiO2 Sodium Potassium Chloride Carbon Dioxide Anion Gap BUN Creatinine Est GFR ( Amer) Est GFR (MDRD) Non-Af Glucose POC Glucose Hemoglobin A1c % Calcium Phosphorus Magnesium Total Bilirubin Direct Bilirubin Neonat Total Bilirubin Neonat Direct Bilirubin Neonat Indirect Bili AST ALT Alkaline Phosphatase Ammonia Creatine Kinase < 20 L < 20 L CK-MB (CK-2) 0.44 Troponin I < 0.012 NT-Pro-B Natriuret Pep Total Protein Albumin Triglycerides 114 Cholesterol 83.44 LDL Cholesterol Direct < 30 VLDL Cholesterol 23.0 HDL Cholesterol 43 Amylase Lipase TSH Free T4 Urine Color Urine Appearance Urine pH Ur Specific Chapman Urine Protein Urine Glucose (UA) Urine Ketones Urine Blood Urine Nitrite Urine Bilirubin Urine Urobilinogen Ur Leukocyte Esterase Urine WBC (Auto) Urine RBC (Auto) Urine Mucus (Auto) Urine Ascorbic Acid Urine Opiates Screen Urine Methadone Screen Ur Barbiturates Screen Ur Phencyclidine Scrn Ur Amphetamines Screen U Benzodiazepines Scrn Urine Cocaine Screen U Marijuana (THC) Screen 05/09/20 05/09/20 05/09/20 05:45 05:45 05:45 WBC 3.5 L RBC 3.34 L Hgb 10.3 L Hct 31.6 L MCV 95 MCH 30.9 MCHC 32.7 RDW 15.3 H Plt Count 150 Lymph % (Auto) 25.1 Banner % (Auto) 8.5 Eos % (Auto) 3.5 Baso % (Auto) 0.6 Absolute Neuts (auto) 2.2 Absolute Lymphs (auto) 0.9 Absolute Monos (auto) 0.3 Absolute Eos (auto) 0.1 Absolute Basos (auto) 0.0 Seg Neutrophils % 62.3 PT INR APTT Carbonic Acid HCO3/H2CO3 Ratio ABG pH ABG pCO2 ABG pO2 ABG HCO3 ABG Total CO2 ABG O2 Saturation ABG Base Excess FiO2 Sodium Potassium Chloride Carbon Dioxide Anion Gap BUN Creatinine Est GFR ( Amer) Est GFR (MDRD) Non-Af Glucose POC Glucose Hemoglobin A1c % 5.1 Calcium Phosphorus Magnesium Total Bilirubin Direct Bilirubin Neonat Total Bilirubin Neonat Direct Bilirubin Neonat Indirect Bili AST ALT Alkaline Phosphatase Ammonia Creatine Kinase CK-MB (CK-2) 0.38 Troponin I < 0.012 NT-Pro-B Natriuret Pep Total Protein Albumin Triglycerides Cholesterol LDL Cholesterol Direct VLDL Cholesterol HDL Cholesterol Amylase Lipase TSH Free T4 Urine Color Urine Appearance Urine pH Ur Specific Chapman Urine Protein Urine Glucose (UA) Urine Ketones Urine Blood Urine Nitrite Urine Bilirubin Urine Urobilinogen Ur Leukocyte Esterase Urine WBC (Auto) Urine RBC (Auto) Urine Mucus (Auto) Urine Ascorbic Acid Urine Opiates Screen Urine Methadone Screen Ur Barbiturates Screen Ur Phencyclidine Scrn Ur Amphetamines Screen U Benzodiazepines Scrn Urine Cocaine Screen U Marijuana (THC) Screen 05/09/20 05/09/20 05/09/20 06:05 12:30 12:30 WBC RBC Hgb Hct MCV MCH MCHC RDW Plt Count Lymph % (Auto) Banner % (Auto) Eos % (Auto) Baso % (Auto) Absolute Neuts (auto) Absolute Lymphs (auto) Absolute Monos (auto) Absolute Eos (auto) Absolute Basos (auto) Seg Neutrophils % PT INR APTT Carbonic Acid 2.13 H HCO3/H2CO3 Ratio 20:1 ABG pH 7.41 ABG pCO2 70.6 H* ABG pO2 69.3 L ABG HCO3 43.6 H ABG Total CO2 45.8 H ABG O2 Saturation 93.3 L ABG Base Excess 16.2 FiO2 30% Sodium Potassium Chloride Carbon Dioxide Anion Gap BUN Creatinine Est GFR ( Amer) Est GFR (MDRD) Non-Af Glucose POC Glucose Hemoglobin A1c % Calcium Phosphorus Magnesium Total Bilirubin Direct Bilirubin Neonat Total Bilirubin Neonat Direct Bilirubin Neonat Indirect Bili AST ALT Alkaline Phosphatase Ammonia Creatine Kinase < 20 L CK-MB (CK-2) 0.52 Troponin I 0.017 NT-Pro-B Natriuret Pep Total Protein Albumin Triglycerides Cholesterol LDL Cholesterol Direct VLDL Cholesterol HDL Cholesterol Amylase Lipase TSH Free T4 Urine Color Urine Appearance Urine pH Ur Specific Chapman Urine Protein Urine Glucose (UA) Urine Ketones Urine Blood Urine Nitrite Urine Bilirubin Urine Urobilinogen Ur Leukocyte Esterase Urine WBC (Auto) Urine RBC (Auto) Urine Mucus (Auto) Urine Ascorbic Acid Urine Opiates Screen Urine Methadone Screen Ur Barbiturates Screen Ur Phencyclidine Scrn Ur Amphetamines Screen U Benzodiazepines Scrn Urine Cocaine Screen U Marijuana (THC) Screen 05/10/20 05/10/20 05/10/20 06:07 14:42 15:30 WBC 3.4 L RBC 3.30 L Hgb 10.2 L Hct 30.7 L MCV 93 MCH 30.9 MCHC 33.2 RDW 15.5 H Plt Count 153 Lymph % (Auto) 22.8 Banner % (Auto) 9.3 Eos % (Auto) 4.3 Baso % (Auto) 0.9 Absolute Neuts (auto) 2.1 Absolute Lymphs (auto) 0.8 Absolute Monos (auto) 0.3 Absolute Eos (auto) 0.1 Absolute Basos (auto) 0.0 Seg Neutrophils % 62.7 PT INR APTT Carbonic Acid 2.25 H HCO3/H2CO3 Ratio 19:1 ABG pH 7.40 ABG pCO2 74.9 H* ABG pO2 98.2 ABG HCO3 44.8 H ABG Total CO2 47.1 H ABG O2 Saturation 97.1 ABG Base Excess 16.9 FiO2 3L Sodium Potassium Chloride Carbon Dioxide Anion Gap BUN Creatinine Est GFR ( Amer) Est GFR (MDRD) Non-Af Glucose POC Glucose 165 H Hemoglobin A1c % Calcium Phosphorus Magnesium Total Bilirubin Direct Bilirubin Neonat Total Bilirubin Neonat Direct Bilirubin Neonat Indirect Bili AST ALT Alkaline Phosphatase Ammonia Creatine Kinase CK-MB (CK-2) Troponin I NT-Pro-B Natriuret Pep Total Protein Albumin Triglycerides Cholesterol LDL Cholesterol Direct VLDL Cholesterol HDL Cholesterol Amylase Lipase TSH Free T4 Urine Color Urine Appearance Urine pH Ur Specific Chapman Urine Protein Urine Glucose (UA) Urine Ketones Urine Blood Urine Nitrite Urine Bilirubin Urine Urobilinogen Ur Leukocyte Esterase Urine WBC (Auto) Urine RBC (Auto) Urine Mucus (Auto) Urine Ascorbic Acid Urine Opiates Screen Urine Methadone Screen Ur Barbiturates Screen Ur Phencyclidine Scrn Ur Amphetamines Screen U Benzodiazepines Scrn Urine Cocaine Screen U Marijuana (THC) Screen 05/10/20 05/10/20 15:35 15:35 WBC RBC Hgb Hct MCV MCH MCHC RDW Plt Count Lymph % (Auto) Banner % (Auto) Eos % (Auto) Baso % (Auto) Absolute Neuts (auto) Absolute Lymphs (auto) Absolute Monos (auto) Absolute Eos (auto) Absolute Basos (auto) Seg Neutrophils % PT INR APTT Carbonic Acid HCO3/H2CO3 Ratio ABG pH ABG pCO2 ABG pO2 ABG HCO3 ABG Total CO2 ABG O2 Saturation ABG Base Excess FiO2 Sodium Potassium Chloride Carbon Dioxide Anion Gap BUN Creatinine Est GFR ( Amer) Est GFR (MDRD) Non-Af Glucose POC Glucose Hemoglobin A1c % Calcium Phosphorus Magnesium Total Bilirubin Direct Bilirubin Neonat Total Bilirubin Neonat Direct Bilirubin Neonat Indirect Bili AST ALT Alkaline Phosphatase Ammonia Creatine Kinase CK-MB (CK-2) Troponin I 0.021 NT-Pro-B Natriuret Pep 1520 H Total Protein Albumin Triglycerides Cholesterol LDL Cholesterol Direct VLDL Cholesterol HDL Cholesterol Amylase Lipase TSH Free T4 Urine Color Urine Appearance Urine pH Ur Specific Chapman Urine Protein Urine Glucose (UA) Urine Ketones Urine Blood Urine Nitrite Urine Bilirubin Urine Urobilinogen Ur Leukocyte Esterase Urine WBC (Auto) Urine RBC (Auto) Urine Mucus (Auto) Urine Ascorbic Acid Urine Opiates Screen Urine Methadone Screen Ur Barbiturates Screen Ur Phencyclidine Scrn Ur Amphetamines Screen U Benzodiazepines Scrn Urine Cocaine Screen U Marijuana (THC) Screen Chest X-Ray 05/08/20 16:50 IMPRESSION: Minimal left retrocardiac atelectasis Head CT 05/08/20 16:50 IMPRESSION: No acute findings. Stable ectasia of the basilar artery EVIDENCE OF ACUTE STROKE: NO. IMPRESSION/RECOMMENDATION: 1. Chest pain: At present resolved. It is difficult to make out if this is angina. But the patient has multiple CAD risk factors. Hence would recommend strongly continue patient metoprolol. Add Nitropaste. Also get serial EKGs and trend the troponins. 2. Acute on chronic hypercapnic respiratory failure: Strongly recommend use of BiPAP. 3. Chronic atrial fibrillation: At present well-controlled heart rate. Continue Eliquis. Continue beta-tony 5. Hypertension: Blood pressure slightly elevated. This may be due to CO2 retention. Will observe the blood pressure and if needed increase the patient's ARB. 6. Obstructive sleep apnea: Noncompliant with CPAP. Patient strongly advised to be on CPAP. 7. Hypothyroidism: Continue replacement 8. Hyperlipidemia: Continue statin 9. Dementia: Continue her anti-dementia medication. 10. History of depression: Continue her antidepressants. 11. Morbid obesity. Medications reviewed. Medications added. Medical regimen management plan discussed with attending provider on the case. Medical decision making is of high complexity. 60 minutes spent as patient more than 50% of time spent in direct patient care. Will follow.
[2020-05-10] MEDS ORDERED: MAG HYDROX/AL HYDROX/SIMETH SUSP 30 ML UDCUP ONE (15:35)
[2020-05-10] MEDS ORDERED: MAG HYDROX/AL HYDROX/SIMETH SUSP 30 ML UDCUP PO ONE (16:00)
[2020-05-10 16:01] LABS: ARTERIAL BLOOD BASE EXCESS 16.9 mmol/L; ARTERIAL BLOOD H2CO3 2.25 mmol/L (1.05-1.35); ARTERIAL BLOOD HCO3 44.8 mmol/L (20-24); ARTERIAL BLOOD O2 SATURATION 97.1 % (94-98); ARTERIAL BLOOD PO2 98.2 mmHg (80-100); ARTERIAL BLOOD TOTAL CO2 47.1 mmol/L (21-25)
[2020-05-10 16:02] LABS: ARTERIAL BLOOD FIO2 3L
[2020-05-10 16:03] LABS: ARTERIAL BLOOD PCO2 74.9 mmHg (35-45)
--- NOTE | 2020-05-10 18:23 | EKG REPORT ---
SEVERITY:- ABNORMAL ECG - ATRIAL FIBRILLATION MULTIFORM VENTRICULAR PREMATURE COMPLEXES BORDERLINE LEFT AXIS DEVIATION CONSIDER ANTEROSEPTAL INFARCT : Confirmed by: Hitesh Singh MD 10-May-2020 18:22:59
[2020-05-10] MEDS: TRAMADOL HCL 50 MG TABLET PO PRN (19:51)
[2020-05-10] MEDS: NITROGLYCERIN 2% OINTMENT 1 GM PACKET TP SCH ×2 (20:17→23:37)
[2020-05-10] MEDS: NITROFURANTOIN MONOHYD/M-CRYST 100 MG CAPSULE PO SCH (20:23)
--- NOTE | 2020-05-10 20:46 | RADIOLOGY REPORT (SQ) ---
EXAM DESCRIPTION: X-ray, AP portable view of the chest CLINICAL HISTORY: 84 years Female, possible aspiration COMPARISON: Single view of the chest May 08, 2020 FINDINGS: Lungs: Lung volumes are low and there is upper lobe vessel distention and recruitment and engorgement of the central pulmonary vessels. There is prominence of the perihilar interstitial lung markings which is stable. There is improved aeration of the left lower lobe. Minimal blunting of the left costophrenic angle. No pneumothorax. Mediastinum: Heart size is enlarged. There is widening of the mediastinum. The appearance is stable. Bones: Osseous structures are unchanged IMPRESSION: 1. Stable cardiomegaly. 2. Improved aeration in the left lower lobe. 3. Nonspecific prominence the perihilar interstitial lung markings which is stable.
[2020-05-10] MEDS: ATORVASTATIN CALCIUM 40 MG TABLET PO SCH (21:19)
--- NOTE | 2020-05-10 21:26 | PDOC PROGRESS REPORT ---
Subjective Progress Note for:: 05/10/20 Subjective:: She has chronic hypercapnic respiratory failure, she had chest pain today consultation requested from Dr. Valentin, cardiology, patient not consistently using BiPAP machine Reason For Visit: ACUTE HYPERCAPNIC RESPIRATORY FAILURE,?OBESITY Physical Exam Vital Signs: Temp Pulse Resp BP Pulse Ox 97.9 F 61 24 H 141/95 H 91 L 05/10/20 19:51 05/10/20 19:51 05/10/20 19:51 05/10/20 19:53 05/10/20 19:53 Intake & Output 05/09/20 05/10/20 05/11/20 06:59 06:59 06:59 Intake Total 260 960 360 Output Total 0 Balance 260 960 360 Weight 120.5 kg 122.8 kg General appearance: PRESENT: no acute distress Eye exam: PRESENT: PERRLA Respiratory exam: PRESENT: clear to auscultation mary Cardiovascular exam: PRESENT: +S1, +S2 GI/Abdominal exam: PRESENT: soft Results Laboratory Results: 05/10/20 06:07 05/09/20 00:48 05/10/20 05/10/20 06:07 15:30 WBC 3.4 L RBC 3.30 L Hgb 10.2 L Hct 30.7 L MCV 93 MCH 30.9 MCHC 33.2 RDW 15.5 H Plt Count 153 Seg Neutrophils % 62.7 Carbonic Acid 2.25 H HCO3/H2CO3 Ratio 19:1 ABG pH 7.40 ABG pCO2 74.9 H* ABG pO2 98.2 ABG HCO3 44.8 H ABG O2 Saturation 97.1 ABG Base Excess 16.9 FiO2 3L 05/08/20 05/09/20 05/09/20 16:53 00:48 00:48 Creatine Kinase < 20 L CK-MB (CK-2) 0.44 Troponin I 0.012 < 0.012 NT-Pro-B Natriuret Pep 1330 H 05/09/20 05/09/20 05/09/20 05:45 05:45 12:30 Creatine Kinase < 20 L < 20 L CK-MB (CK-2) 0.38 Troponin I < 0.012 NT-Pro-B Natriuret Pep 05/09/20 05/10/20 05/10/20 12:30 15:35 15:35 Creatine Kinase CK-MB (CK-2) 0.52 Troponin I 0.017 0.021 NT-Pro-B Natriuret Pep 1520 H Impressions: Head CT 05/08/20 16:50 IMPRESSION: No acute findings. Stable ectasia of the basilar artery EVIDENCE OF ACUTE STROKE: NO. Chest X-Ray 05/10/20 00:00 IMPRESSION: 1. Stable cardiomegaly. 2. Improved aeration in the left lower lobe. 3. Nonspecific prominence the perihilar interstitial lung markings which is stable. Assessment & Plan - Diagnosis (1) Acute hypercapnic respiratory failure Is this a current diagnosis for this admission?: Yes Plan: Continue noninvasive positive pressure ventilation, BiPAP (2) Hypoventilation associated with obesity syndrome Is this a current diagnosis for this admission?: Yes (3) Permanent atrial fibrillation Is this a current diagnosis for this admission?: Yes Plan: Continue Eliquis, beta-tony (4) Hypothyroidism Qualifiers: Hypothyroidism type: acquired Qualified Code(s): E03.9 - Hypothyroidism, unspecified Is this a current diagnosis for this admission?: Yes Plan: continue hormone replacement therapy - Time Time Spent with patient: 25-34 minutes Level of Care: CU
[2020-05-11] MEDS: NITROGLYCERIN 2% OINTMENT 1 GM PACKET TP SCH ×3 (05:52→17:42)
[2020-05-11 06:10] LABS: ABSOLUTE EOSINOPHILS # (AUTO) 0.2 10^3/uL (0.0-0.6); ABSOLUTE MONOCYTES (AUTO) 0.4 10^3/uL (0.1-1.4); ABSOLUTE NEUT (AUTO) 2.3 10^3/uL (1.7-8.2); BASOPHILS % (AUTO) 0.7 % (0-2); HEMATOCRIT 30.7 % (36.0-47.0); HEMOGLOBIN 10.3 g/dL (12.0-15.5); LYMPHOCYTES % (AUTO) 25.1 % (13-45); MEAN CORPUSCULAR HEMOGLOBIN 31.2 pg (27.0-33.4); MEAN CORPUSCULAR HGB CONC 33.4 g/dL (32.0-36.0); MEAN CORPUSCULAR VOLUME 93 fl (80-97); MONOCYTES % (AUTO) 9.5 % (3-13); PLATELET COUNT 153 10^3/uL (150-450); RED BLOOD COUNT 3.29 10^6/uL (3.72-5.28); RED CELL DISTRIBUTION WIDTH 15.4 % (11.5-14.0); SEGMENTED NEUTROPHILS % (AUTO) 60.7 % (42-78); TOTAL CELLS COUNTED % (AUTO) 100 %; WHITE BLOOD COUNT 3.8 10^3/uL (4.0-10.5)
--- NOTE | 2020-05-11 09:57 | EKG REPORT ---
SEVERITY:- ABNORMAL ECG - ATRIAL FIBRILLATION MULTIFORM VENTRICULAR PREMATURE COMPLEXES BORDERLINE LEFT AXIS DEVIATION ABNRM R PROG, CONSIDER ASMI OR LEAD PLACEMENT : Confirmed by: Hitesh Singh MD 11-May-2020 09:56:09
--- NOTE | 2020-05-11 11:49 | PDOC PROGRESS REPORT ---
Subjective Progress Note for:: 05/11/20 Subjective:: Patient is complaining of feeling tired and fatigue Patient still refused to wear the BiPAP Patient CO2 is still elevated Discussed with the patient's with the nursing staff and patient is agreed to wear the BiPAP today Patient is seen by the cardiology and suggest nothing needs to be offer Reason For Visit: ACUTE HYPERCAPNIC RESPIRATORY FAILURE,?OBESITY Physical Exam Vital Signs: Temp Pulse Resp BP Pulse Ox 98.1 F 63 18 146/79 H 98 05/11/20 03:29 05/11/20 07:00 05/11/20 03:29 05/11/20 03:29 05/11/20 08:10 Intake & Output 05/10/20 05/11/20 05/12/20 06:59 06:59 06:59 Intake Total 960 1360 Balance 960 1360 Weight 122.8 kg General appearance: PRESENT: no acute distress, well-developed, well-nourished Head exam: PRESENT: atraumatic, normocephalic Eye exam: PRESENT: conjunctiva pink, EOMI, PERRLA. ABSENT: scleral icterus Ear exam: PRESENT: normal external ear exam Mouth exam: PRESENT: moist, tongue midline Neck exam: PRESENT: full ROM. ABSENT: carotid bruit, JVD, lymphadenopathy, thyromegaly Respiratory exam: PRESENT: clear to auscultation mary Cardiovascular exam: PRESENT: RRR. ABSENT: diastolic murmur, rubs, systolic murmur Vascular exam: PRESENT: normal capillary refill GI/Abdominal exam: PRESENT: normal bowel sounds, soft. ABSENT: distended, guarding, mass, organolmegaly, rebound, tenderness Rectal exam: PRESENT: deferred Neurological exam: PRESENT: alert, awake, oriented to person, oriented to place. ABSENT: motor sensory deficit Psychiatric exam: PRESENT: appropriate affect, normal mood. ABSENT: homicidal ideation, suicidal ideation Skin exam: PRESENT: dry, intact, warm. ABSENT: cyanosis, rash Results Laboratory Results: 05/11/20 05:20 05/09/20 00:48 05/10/20 05/11/20 15:30 05:20 WBC 3.8 L RBC 3.29 L Hgb 10.3 L Hct 30.7 L MCV 93 MCH 31.2 MCHC 33.4 RDW 15.4 H Plt Count 153 Seg Neutrophils % 60.7 Carbonic Acid 2.25 H HCO3/H2CO3 Ratio 19:1 ABG pH 7.40 ABG pCO2 74.9 H* ABG pO2 98.2 ABG HCO3 44.8 H ABG O2 Saturation 97.1 ABG Base Excess 16.9 FiO2 3L 05/08/20 05/09/20 05/09/20 16:53 00:48 00:48 Creatine Kinase < 20 L CK-MB (CK-2) 0.44 Troponin I 0.012 < 0.012 NT-Pro-B Natriuret Pep 1330 H 05/09/20 05/09/20 05/09/20 05:45 05:45 12:30 Creatine Kinase < 20 L < 20 L CK-MB (CK-2) 0.38 Troponin I < 0.012 NT-Pro-B Natriuret Pep 05/09/20 05/10/20 05/10/20 12:30 15:35 15:35 Creatine Kinase CK-MB (CK-2) 0.52 Troponin I 0.017 0.021 NT-Pro-B Natriuret Pep 1520 H 05/11/20 05:20 Creatine Kinase CK-MB (CK-2) Troponin I 0.017 NT-Pro-B Natriuret Pep Impressions: Head CT 05/08/20 16:50 IMPRESSION: No acute findings. Stable ectasia of the basilar artery EVIDENCE OF ACUTE STROKE: NO. Chest X-Ray 05/10/20 00:00 IMPRESSION: 1. Stable cardiomegaly. 2. Improved aeration in the left lower lobe. 3. Nonspecific prominence the perihilar interstitial lung markings which is stable. Assessment & Plan - Diagnosis (1) Acute hypercapnic respiratory failure Is this a current diagnosis for this admission?: Yes Plan: Continue noninvasive positive pressure ventilation, BiPAP (2) Confusion Is this a current diagnosis for this admission?: Yes Plan: Most likely due to hypercapnic respiratory failure patient's continues to refused BiPAP (3) Hypoventilation associated with obesity syndrome Is this a current diagnosis for this admission?: Yes (4) CHF (congestive heart failure) Qualifiers: Heart failure type: unspecified Heart failure chronicity: unspecified Qualified Code(s): I50.9 - Heart failure, unspecified Is this a current diagnosis for this admission?: Yes (5) Chronic atrial fibrillation Is this a current diagnosis for this admission?: Yes (6) Chronic obstructive pulmonary disease (COPD) Qualifiers: COPD type: unspecified COPD Qualified Code(s): J44.9 - Chronic obstructive pulmonary disease, unspecified Is this a current diagnosis for this admission?: Yes (7) Elevated troponin Is this a current diagnosis for this admission?: Yes (8) Essential hypertension Is this a current diagnosis for this admission?: Yes (9) Obstructive sleep apnea Is this a current diagnosis for this admission?: Yes - Time Time Spent with patient: 15-24 minutes Level of Care: IMCU Medications reviewed and adjusted accordingly: Yes Anticipated discharge: Other Within: Other - Plan Summary Plan Summary: Discussed with the patient is to use the BiPAP we will repeat the ABG after 2 hours The only thinks patients can get benefit with the BiPAP to reduce the CO2 At the patient's continues to refuse nothing much can be due Discussed with the cardiology nothing needs to do the cardiac standpoint
[2020-05-11] MEDS: LOSARTAN POTASSIUM 50 MG TABLET PO SCH (12:29)
[2020-05-11] MEDS: APIXABAN 5 MG TABLET PO SCH ×2 (12:30→17:53)
[2020-05-11] MEDS: NITROFURANTOIN MONOHYD/M-CRYST 100 MG CAPSULE PO SCH (12:30)
[2020-05-11] MEDS: SERTRALINE HCL 50 MG TABLET PO SCH (12:32)
[2020-05-11] MEDS: LEVOTHYROXINE SODIUM 0.112 MG TABLET PO SCH (12:32)
[2020-05-11] MEDS: PANTOPRAZOLE SODIUM 40 MG TABLET.DR PO SCH (12:32)
[2020-05-11] MEDS: METOPROLOL SUCCINATE 50 MG TAB.SR.24H PO SCH (12:32)
--- NOTE | 2020-05-11 15:14 | Progress Note ---
Provider Note Provider Note: CARDIOLOGY PROGRESS NOTE by Dr. Carmelina Plaza on 05/11/2020. SUBJECTIVE: The patient presents wearing the BiPAP. Earlier as per the nurse she almost aspirated on a cake that she ate. She is still somnolent in spite of the patient being on CPAP but she is more appropriate today. She denies any chest pain or discomfort. There is no complaints of shortness of breath. There is no arrhythmias seen on the monitor except for atrial fibrillation with controlled ventricular response. There is no leg edema. Of note the patient has been on BiPAP for about 2-1/2 hours and a repeat repeat ABG show a still elevated PCO2 of 51.5. Hence the patient will benefit from a trilogy noninvasive ventilator at home. There is no bleeding on Eliquis. There is no TIA CVA symptoms. PHYSICAL EXAMINATION: The patient is morbidly obese. At present in no acute distress. Selected Entries 05/11/20 05/11/20 16:06 16:31 Temperature 98.1 F Temperature Oral Source Pulse Rate 115 H Respiratory 20 Rate Blood Pressure 121/92 H Blood Pressure 101 Mean BP Location Right Arm BP Position Supine O2 Sat by Pulse 93 Oximetry Fraction of 30 Inspired Oxygen (FIO2) Oxygen Delivery Bipap Method HEAD: Is atraumatic normocephalic. EYES: Pupils are equal round regular reactive to light and accommodation. Extraocular movements are normal. There is no conjunctival pallor. EARS: Tympanic membranes are intact. There is no lesions on the penis. Tympanic membranes are intact. NOSE: There is no deviated nasal septum. There is no inflammation of the nasal mucous membrane. MOUTH: Mucous membranes of mouth are moist tongue is moist. The patient's dariel fied Mallampati class IV airway. THROAT: There is no redness of the oropharynx. There is no exudates. SKIN: There is no skin rashes. There is no petechia or ecchymosis. There is no skin lesions. There is no skin rashes. NECK: Supple. There is no JVD. Carotids are equal there is no bruit. There is no lymphadenopathy. There is no goiter. There is no accessory muscles of respiration use. Trachea central. LUNGS: There is diminished air entry and prolonged expiration. There is no rhonchi rales or wheezing. HEART: S1-S2 is heard. S1 is variable intensity. There is systolic murmur in the left sternal border and the apex there is no rub. ABDOMEN: Soft. Nontender obese. There is no paraspinal megaly. Bowel sounds are well heard. EXTREMITIES femorals are deep. Femorals are diminished. There is no femoral bruits. Leg pulses are diminished. There is no pedal edema. There is no DVT or cellulitis. 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 PSYCHIATRIC poor. Detailed testing not done due to patient's mental status. She does not appear to be anxious or agitated. EKG:. ATRIAL FIBRILLATION [MFVPC] . MULTIFORM VENTRICULAR PREMATURE COMPLEXES [BLANK] . BORDERLINE LEFT AXIS DEVIATION [AMI4] . ABNRM R PROG, CONSIDER ASMI OR LEAD PLACEMENT Labs- All tests 24 hr 05/10/20 05/11/20 05/11/20 23:31 05:20 05:20 WBC 3.8 L RBC 3.29 L Hgb 10.3 L Hct 30.7 L MCV 93 MCH 31.2 MCHC 33.4 RDW 15.4 H Plt Count 153 Lymph % (Auto) 25.1 [place] % (Auto) 9.5 Eos % (Auto) 4.0 Baso % (Auto) 0.7 Absolute Neuts (auto) 2.3 Absolute Lymphs (auto) 1.0 Absolute Monos (auto) 0.4 Absolute Eos (auto) 0.2 Absolute Basos (auto) 0.0 Seg Neutrophils % 60.7 Carbonic Acid HCO3/H2CO3 Ratio ABG pH ABG pCO2 ABG pO2 ABG HCO3 ABG Total CO2 ABG O2 Saturation ABG Base Excess FiO2 POC Glucose 98 Troponin I 0.017 05/11/20 05/11/20 05/11/20 05:48 11:50 14:20 WBC RBC Hgb Hct MCV MCH MCHC RDW Plt Count Lymph % (Auto) [place] % (Auto) Eos % (Auto) Baso % (Auto) Absolute Neuts (auto) Absolute Lymphs (auto) Absolute Monos (auto) Absolute Eos (auto) Absolute Basos (auto) Seg Neutrophils % Carbonic Acid 1.55 H HCO3/H2CO3 Ratio 21:1 ABG pH 7.42 ABG pCO2 51.5 H ABG pO2 87.1 ABG HCO3 32.9 H ABG Total CO2 34.5 H ABG O2 Saturation 96.7 ABG Base Excess 7.3 FiO2 30% POC Glucose 90 113 H Troponin I 05/11/20 17:09 WBC RBC Hgb Hct MCV MCH MCHC RDW Plt Count Lymph % (Auto) [place] % (Auto) Eos % (Auto) Baso % (Auto) Absolute Neuts (auto) Absolute Lymphs (auto) Absolute Monos (auto) Absolute Eos (auto) Absolute Basos (auto) Seg Neutrophils % Carbonic Acid HCO3/H2CO3 Ratio ABG pH ABG pCO2 ABG pO2 ABG HCO3 ABG Total CO2 ABG O2 Saturation ABG Base Excess FiO2 POC Glucose 105 Troponin I Chest X-Ray 05/08/20 16:50 IMPRESSION: Minimal left retrocardiac atelectasis Head CT 05/08/20 16:50 IMPRESSION: No acute findings. Stable ectasia of the basilar artery EVIDENCE OF ACUTE STROKE: NO. Chest X-Ray 05/10/20 00:00 IMPRESSION: 1. Stable cardiomegaly. 2. Improved aeration in the left lower lobe. 3. Nonspecific prominence the perihilar interstitial lung markings which is stable. MPRESSION/RECOMMENDATION: 1. Chest pain: At present resolved. It is difficult to make out if this is angina. But the patient has multiple CAD risk factors. Hence would recommend strongly continue patient metoprolol. There is no evidence of myocardial infarction. The patient has multiple CAD risk factors. Hence will change the topical Nitropaste to a transdermal nitro patch. 2. Acute on chronic hypercapnic respiratory failure: The patient's PCO2 is still elevated in spite of two 1 hour hours of being on BiPAP. Hence the patient definitely will require trilogy noninvasive ventilator at home. We will see how this can be arranged. We will see if we can get pulmonology involved. 3. Chronic atrial fibrillation: At present well-controlled heart rate. Continue Eliquis. Continue beta-tony 5. Hypertension: Blood pressure slightly elevated. This may be due to CO2 retention. Will observe the blood pressure and if needed increase the patient's ARB. 6. Obstructive sleep apnea: Noncompliant with CPAP. Patient strongly advised to be on CPAP. 7. Hypothyroidism: Continue replacement 8. Hyperlipidemia: Continue statin 9. Dementia: Continue her anti-dementia medication. 10. History of depression: Continue her antidepressants. 11. Morbid obesity. Medications reviewed. Medications adjusted. Medical decision making is of high complexity. Medical regimen and management plan discussed with Dr. Corona covering for Dr. Arnold. 40 minutes spent on this patient with more than 50% of time spent in direct patient care. Will follow.
[2020-05-11 15:23] LABS: ARTERIAL BLOOD BASE EXCESS 7.3 mmol/L; ARTERIAL BLOOD H2CO3 1.55 mmol/L (1.05-1.35); ARTERIAL BLOOD HCO3 32.9 mmol/L (20-24); ARTERIAL BLOOD O2 SATURATION 96.7 % (94-98); ARTERIAL BLOOD PCO2 51.5 mmHg (35-45); ARTERIAL BLOOD PH 7.42 (7.35-7.45); ARTERIAL BLOOD PO2 87.1 mmHg (80-100); ARTERIAL BLOOD TOTAL CO2 34.5 mmol/L (21-25)
[2020-05-11 15:24] LABS: ARTERIAL BLOOD FIO2 30%
[2020-05-11] MEDS: CEFEPIME 1 GM/D5W RTU 1 GM/50 ML RTUPB IV SCH ×2 (16:30→22:03)
[2020-05-11] MEDS: ATORVASTATIN CALCIUM 40 MG TABLET PO SCH (22:00)
[2020-05-11] MEDS: RINGERS SOLUTION,LACTATED 1,000 ML IV PRN (22:02)
[2020-05-12 06:45] LABS: ABSOLUTE EOSINOPHILS # (AUTO) 0.1 10^3/uL (0.0-0.6); ABSOLUTE LYMPHOCYTES (AUTO) 0.8 10^3/uL (0.5-4.7); ABSOLUTE MONOCYTES (AUTO) 0.5 10^3/uL (0.1-1.4); ABSOLUTE NEUT (AUTO) 5.4 10^3/uL (1.7-8.2); BASOPHILS % (AUTO) 0.4 % (0-2); EOSINOPHILS % (AUTO) 1.3 % (0-6); HEMATOCRIT 30.4 % (36.0-47.0); HEMOGLOBIN 10.2 g/dL (12.0-15.5); LYMPHOCYTES % (AUTO) 11.3 % (13-45); MEAN CORPUSCULAR HEMOGLOBIN 31.2 pg (27.0-33.4); MEAN CORPUSCULAR HGB CONC 33.6 g/dL (32.0-36.0); MEAN CORPUSCULAR VOLUME 93 fl (80-97); MONOCYTES % (AUTO) 7.2 % (3-13); PLATELET COUNT 157 10^3/uL (150-450); RED BLOOD COUNT 3.27 10^6/uL (3.72-5.28); RED CELL DISTRIBUTION WIDTH 15.8 % (11.5-14.0); SEGMENTED NEUTROPHILS % (AUTO) 79.8 % (42-78); TOTAL CELLS COUNTED % (AUTO) 100 %; WHITE BLOOD COUNT 6.7 10^3/uL (4.0-10.5)
[2020-05-12 07:05] LABS: ANION GAP 5 (5-19); BLOOD UREA NITROGEN 15 mg/dL (7-20); CALCIUM 8.2 mg/dL (8.4-10.2); CARBON DIOXIDE 38 mmol/L (22-30); CHLORIDE 92 mmol/L (98-107); GLUCOSE 78 mg/dL (75-110); POTASSIUM 3.6 mmol/L (3.6-5.0)
[2020-05-12] MEDS: LOSARTAN POTASSIUM 50 MG TABLET PO SCH (09:34)
[2020-05-12] MEDS: SERTRALINE HCL 50 MG TABLET PO SCH (09:34)
[2020-05-12] MEDS: LEVOTHYROXINE SODIUM 0.112 MG TABLET PO SCH (09:34)
[2020-05-12] MEDS: PANTOPRAZOLE SODIUM 40 MG TABLET.DR PO SCH (09:34)
[2020-05-12] MEDS: METOPROLOL SUCCINATE 50 MG TAB.SR.24H PO SCH (09:35)
[2020-05-12] MEDS: CEFEPIME 1 GM/D5W RTU 1 GM/50 ML RTUPB IV SCH ×2 (09:35→21:22)
[2020-05-12] MEDS: NITROFURANTOIN MONOHYD/M-CRYST 100 MG CAPSULE PO SCH (09:35)
[2020-05-12] MEDS: APIXABAN 5 MG TABLET PO SCH ×2 (09:35→17:21)
--- NOTE | 2020-05-12 09:45 | PDOC PROGRESS REPORT ---
Subjective Progress Note for:: 05/12/20 Reason For Visit: ACUTE HYPERCAPNIC RESPIRATORY FAILURE,?OBESITY Physical Exam Vital Signs: Temp Pulse Resp BP Pulse Ox 97.8 F 90 16 153/89 H 94 05/11/20 23:05 05/12/20 07:00 05/12/20 09:06 05/11/20 23:05 05/12/20 09:06 Intake & Output 05/11/20 05/12/20 05/13/20 06:59 06:59 06:59 Intake Total 1360 1100 Output Total 200 Balance 1360 900 Weight 118 kg General appearance: PRESENT: no acute distress Head exam: PRESENT: atraumatic, normocephalic Eye exam: PRESENT: conjunctiva pink, EOMI, PERRLA. ABSENT: scleral icterus Ear exam: PRESENT: normal external ear exam Mouth exam: PRESENT: moist, tongue midline Neck exam: PRESENT: full ROM. ABSENT: carotid bruit, JVD, lymphadenopathy, thyromegaly Respiratory exam: PRESENT: decreased breath sounds Cardiovascular exam: PRESENT: RRR. ABSENT: diastolic murmur, rubs, systolic murmur Vascular exam: PRESENT: normal capillary refill GI/Abdominal exam: PRESENT: normal bowel sounds, soft. ABSENT: distended, guarding, mass, organolmegaly, rebound, tenderness Rectal exam: PRESENT: deferred Neurological exam: PRESENT: alert, awake, oriented to person, oriented to place, oriented to time, oriented to situation, CN II-XII grossly intact. ABSENT: motor sensory deficit Psychiatric exam: PRESENT: appropriate affect, normal mood. ABSENT: homicidal ideation, suicidal ideation Skin exam: PRESENT: dry, intact, warm. ABSENT: cyanosis, rash Results Laboratory Results: 05/12/20 05:48 05/12/20 05:48 05/11/20 05/12/20 05/12/20 14:20 05:48 05:48 WBC 6.7 RBC 3.27 L Hgb 10.2 L Hct 30.4 L MCV 93 MCH 31.2 MCHC 33.6 RDW 15.8 H Plt Count 157 Seg Neutrophils % 79.8 H Carbonic Acid 1.55 H HCO3/H2CO3 Ratio 21:1 ABG pH 7.42 ABG pCO2 51.5 H ABG pO2 87.1 ABG HCO3 32.9 H ABG O2 Saturation 96.7 ABG Base Excess 7.3 FiO2 30% Sodium 134.9 L Potassium 3.6 Chloride 92 L Carbon Dioxide 38 H Anion Gap 5 BUN 15 Creatinine 0.34 L Est GFR ( Amer) > 60 Glucose 78 Calcium 8.2 L 05/08/20 19:19 Catheterized Urine Urine Culture - Final NO GROWTH 2 DAYS 05/08/20 05/09/20 05/09/20 16:53 00:48 00:48 Creatine Kinase < 20 L CK-MB (CK-2) 0.44 Troponin I 0.012 < 0.012 NT-Pro-B Natriuret Pep 1330 H 05/09/20 05/09/20 05/09/20 05:45 05:45 12:30 Creatine Kinase < 20 L < 20 L CK-MB (CK-2) 0.38 Troponin I < 0.012 NT-Pro-B Natriuret Pep 05/09/20 05/10/20 05/10/20 12:30 15:35 15:35 Creatine Kinase CK-MB (CK-2) 0.52 Troponin I 0.017 0.021 NT-Pro-B Natriuret Pep 1520 H 05/11/20 05:20 Creatine Kinase CK-MB (CK-2) Troponin I 0.017 NT-Pro-B Natriuret Pep Impressions: Head CT 05/08/20 16:50 IMPRESSION: No acute findings. Stable ectasia of the basilar artery EVIDENCE OF ACUTE STROKE: NO. Chest X-Ray 05/10/20 00:00 IMPRESSION: 1. Stable cardiomegaly. 2. Improved aeration in the left lower lobe. 3. Nonspecific prominence the perihilar interstitial lung markings which is stable. Assessment & Plan - Diagnosis (1) Acute hypercapnic respiratory failure Is this a current diagnosis for this admission?: Yes Plan: Continue noninvasive positive pressure ventilation, BiPAP (2) Confusion Is this a current diagnosis for this admission?: Yes Plan: Most likely due to hypercapnic respiratory failure patient's continues to refused BiPAP (3) Hypoventilation associated with obesity syndrome Is this a current diagnosis for this admission?: Yes (4) CHF (congestive heart failure) Qualifiers: Heart failure type: unspecified Heart failure chronicity: unspecified Qualified Code(s): I50.9 - Heart failure, unspecified Is this a current diagnosis for this admission?: Yes (5) Chronic atrial fibrillation Is this a current diagnosis for this admission?: Yes (6) Chronic obstructive pulmonary disease (COPD) Qualifiers: COPD type: unspecified COPD Qualified Code(s): J44.9 - Chronic obstructive pulmonary disease, unspecified Is this a current diagnosis for this admission?: Yes (7) Elevated troponin Is this a current diagnosis for this admission?: Yes (8) Essential hypertension Is this a current diagnosis for this admission?: Yes (9) Obstructive sleep apnea Is this a current diagnosis for this admission?: Yes - Time Time Spent with patient: 15-24 minutes Level of Care: IMCU Medications reviewed and adjusted accordingly: Yes Anticipated discharge: Other Within: Other - cont curr med
[2020-05-12] MEDS: NITROGLYCERIN 15 MG (0.6 MG/1 HR) PATCH.TD24 TD SCH (09:55)
--- NOTE | 2020-05-12 13:10 | RADIOLOGY REPORT (SQ) ---
EXAM DESCRIPTION: CHEST SINGLE VIEW IMAGES COMPLETED DATE/TIME: 05/12/2020 9:34 am REASON FOR STUDY: sob COMPARISON: Chest radiograph 05/10/2020 EXAM PARAMETERS: NUMBER OF VIEWS: One view. TECHNIQUE: Single frontal radiographic view of the chest acquired. RADIATION DOSE: NA LIMITATIONS: None. FINDINGS: LUNGS AND PLEURA: The lungs are hyperinflated. No focal consolidation or pleural effusion . No pneumothorax. Mild prominence of the perihilar markings, less prominent than on previous. MEDIASTINUM AND HILAR STRUCTURES: No masses. Contour normal. HEART AND VASCULAR STRUCTURES: Mild cardiomegaly, stable. No pulmonary vascular congestion. BONES: No acute findings. HARDWARE: None in the chest. OTHER: No other significant finding. IMPRESSION: No significant interval change. No acute cardiopulmonary disease. TECHNICAL DOCUMENTATION: JOB ID: [id number] 2010 [employer]- All Rights Reserved Reading location - IP/workstation name: [email or web address]
[2020-05-12] MEDS: TRAMADOL HCL 50 MG TABLET PO PRN ×2 (14:34→21:23)
[2020-05-12] MEDS: ATORVASTATIN CALCIUM 40 MG TABLET PO SCH (21:23)
[2020-05-13 07:54] LABS: ABSOLUTE EOSINOPHILS # (AUTO) 0.1 10^3/uL (0.0-0.6); ABSOLUTE LYMPHOCYTES (AUTO) 0.7 10^3/uL (0.5-4.7); ABSOLUTE MONOCYTES (AUTO) 0.4 10^3/uL (0.1-1.4); ABSOLUTE NEUT (AUTO) 3.2 10^3/uL (1.7-8.2); BASOPHILS % (AUTO) 0.4 % (0-2); EOSINOPHILS % (AUTO) 2.7 % (0-6); HEMOGLOBIN 10.5 g/dL (12.0-15.5); LYMPHOCYTES % (AUTO) 15.6 % (13-45); MEAN CORPUSCULAR HEMOGLOBIN 31.5 pg (27.0-33.4); MEAN CORPUSCULAR HGB CONC 33.8 g/dL (32.0-36.0); MEAN CORPUSCULAR VOLUME 93 fl (80-97); MONOCYTES % (AUTO) 9.8 % (3-13); PLATELET COUNT 161 10^3/uL (150-450); RED BLOOD COUNT 3.33 10^6/uL (3.72-5.28); RED CELL DISTRIBUTION WIDTH 15.4 % (11.5-14.0); SEGMENTED NEUTROPHILS % (AUTO) 71.5 % (42-78); TOTAL CELLS COUNTED % (AUTO) 100 %; WHITE BLOOD COUNT 4.5 10^3/uL (4.0-10.5)
[2020-05-13 08:20] LABS: ANION GAP 5 (5-19); BLOOD UREA NITROGEN 15 mg/dL (7-20); CALCIUM 8.4 mg/dL (8.4-10.2); CARBON DIOXIDE 38 mmol/L (22-30); CHLORIDE 92 mmol/L (98-107); GLUCOSE 73 mg/dL (75-110); POTASSIUM 3.5 mmol/L (3.6-5.0)
[2020-05-13] MEDS: CEFEPIME 1 GM/D5W RTU 1 GM/50 ML RTUPB IV SCH ×2 (09:18→22:12)
[2020-05-13] MEDS: NITROGLYCERIN 15 MG (0.6 MG/1 HR) PATCH.TD24 TD SCH (09:18)
[2020-05-13] MEDS: NITROFURANTOIN MONOHYD/M-CRYST 100 MG CAPSULE PO SCH (09:18)
[2020-05-13] MEDS: SERTRALINE HCL 50 MG TABLET PO SCH (09:18)
[2020-05-13] MEDS: METOPROLOL SUCCINATE 50 MG TAB.SR.24H PO SCH (09:19)
[2020-05-13] MEDS: APIXABAN 5 MG TABLET PO SCH ×2 (09:19→17:43)
[2020-05-13] MEDS: LOSARTAN POTASSIUM 50 MG TABLET PO SCH (09:19)
[2020-05-13] MEDS: LEVOTHYROXINE SODIUM 0.112 MG TABLET PO SCH (09:21)
[2020-05-13] MEDS: PANTOPRAZOLE SODIUM 40 MG TABLET.DR PO SCH (09:21)
[2020-05-13] MEDS ORDERED: POTASSIUM CHLORIDE 10 MEQ TABLET.ER PO ONE (09:30)
--- NOTE | 2020-05-13 10:45 | RADIOLOGY REPORT (SQ) ---
EXAM DESCRIPTION: BARIUM SWALLOW ESOPHAGUS IMAGES COMPLETED DATE/TIME: 05/13/2020 10:11 am REASON FOR STUDY: aspirated on cake COMPARISON: Barium swallow 06/07/[address] the chest 03/22/2020 TECHNIQUE: Under fluoroscopic guidance, patient ingested thin barium. Fluoroscopic spot images and r outine radiographic images acquired and stored on PACS. 12 MM BARIUM TABLET GIVEN: Yes. Delay in passage through the distal esophagus. LIMITATIONS: Patient unable is stand, imaging performed in semi erect and right lateral positions. FLUOROSCOPY TIME: 2.1 minutes of fluoroscopy was used. 11 images saved to PACS. FINDINGS: NEUROMUSCULAR COORDINATION OF SWALLOW: Normal. No aspiration. ESOPHAGEAL MOTILITY: Esophageal dysmotility with tertiary contractions in the distal half esophagus. There is stasis of barium throughout the esophagus or Manage. ESOPHAGEAL MUCOSA: Mild dilatation of the esophagus which is in a birds beak type appearance distally . Given the esophageal dysmotility these findings are all worrisome for esophageal achalasia. . Ma ss effect against the distal esophagus caused by the distal descending thoracic aorta. Mild narrowin g of the distal esophagus does delay passage of a 12 mm barium tablet, unchanged from previous study. GASTRO-ESOPHAGEAL JUNCTION: Small sliding hiatal hernia. No reflux seen. Delay in passage 12 mm bar ium tablet, unchanged from per previous study. NON-GI TRACT STRUCTURES: No significant finding. OTHER: No other significant finding. IMPRESSION: 1. MILD DILATATION AND POOR MOTILITY WITH BIRD BEAK APPEARANCE DISTALLY ALL WORRISOME F OR ESOPHAGEAL ACHALASIA. THE DISTAL ESOPHAGEAL STRICTURE CANNOT BE ENTIRELY RULED OUT. THERE WAS DE LAY IN PASSAGE OF THE 12 MM BARIUM TABLET FOR APPROXIMATELY 15 MINUTES. 2. EXTRINSIC MASS EFFECT UPON THE DISTAL ESOPHAGUS CAUSED BY THE DISTAL DESCENDING AORTA. 3. NO ASPIRATION WAS SEEN. COMMENT: Quality ID [id number]: Final reports for procedures using fluoroscopy that document radiation exp osure indices, or exposure time and number of fluorographic images (if radiation exposure indices are not available) TECHNICAL DOCUMENTATION: JOB ID: [id number] 2010 [employer]- All Rights Reserved Reading location - IP/workstation name: [email or web address]
--- NOTE | 2020-05-13 14:56 | PDOC PROGRESS REPORT ---
Subjective Progress Note for:: 05/13/20 Subjective:: Patient seen by the bedside, she had barium swallow done today, it demonstrated esophageal dysmotility with tertiary contraction the distal of there is stasis of barium throughout the esophagus also found was dilatation of the esophagus which is in a broad beak type appearance worrisome for esophageal achalasia Reason For Visit: ACUTE HYPERCAPNIC RESPIRATORY FAILURE,?OBESITY Physical Exam Vital Signs: Temp Pulse Resp BP Pulse Ox 97.9 F 72 15 156/106 H 97 05/13/20 12:45 05/13/20 12:45 05/13/20 12:45 05/13/20 12:45 05/13/20 12:45 Intake & Output 05/12/20 05/13/20 05/14/20 06:59 06:59 06:59 Intake Total 1100 100 Output Total 200 600 Balance 900 -500 Weight 118 kg 112.4 kg General appearance: PRESENT: no acute distress Respiratory exam: PRESENT: clear to auscultation mary Cardiovascular exam: PRESENT: +S1, +S2 GI/Abdominal exam: PRESENT: soft Neurological exam: PRESENT: alert Results Laboratory Results: 05/13/20 07:07 05/13/20 07:07 05/13/20 05/13/20 07:07 07:07 WBC 4.5 RBC 3.33 L Hgb 10.5 L Hct 31.0 L MCV 93 MCH 31.5 MCHC 33.8 RDW 15.4 H Plt Count 161 Seg Neutrophils % 71.5 Sodium 134.7 L Potassium 3.5 L Chloride 92 L Carbon Dioxide 38 H Anion Gap 5 BUN 15 Creatinine 0.43 L Est GFR ( Amer) > 60 Glucose 73 L Calcium 8.4 05/09/20 05:45 Blood Blood Culture (PCR) - Final 05/09/20 05:45 Blood Blood Culture - Final Micrococcus Species 05/08/20 05/09/20 05/09/20 16:53 00:48 00:48 Creatine Kinase < 20 L CK-MB (CK-2) 0.44 Troponin I 0.012 < 0.012 NT-Pro-B Natriuret Pep 1330 H 05/09/20 05/09/20 05/09/20 05:45 05:45 12:30 Creatine Kinase < 20 L < 20 L CK-MB (CK-2) 0.38 Troponin I < 0.012 NT-Pro-B Natriuret Pep 05/09/20 05/10/20 05/10/20 12:30 15:35 15:35 Creatine Kinase CK-MB (CK-2) 0.52 Troponin I 0.017 0.021 NT-Pro-B Natriuret Pep 1520 H 05/11/20 05:20 Creatine Kinase CK-MB (CK-2) Troponin I 0.017 NT-Pro-B Natriuret Pep Impressions: Head CT 05/08/20 16:50 IMPRESSION: No acute findings. Stable ectasia of the basilar artery EVIDENCE OF ACUTE STROKE: NO. Chest X-Ray 05/12/20 00:00 IMPRESSION: No significant interval change. No acute cardiopulmonary disease. Esophagus X-Ray 05/13/20 00:00 IMPRESSION: 1. MILD DILATATION AND POOR MOTILITY WITH BIRD BEAK APPEARANCE DISTALLY ALL WORRISOME FOR ESOPHAGEAL ACHALASIA. THE DISTAL ESOPHAGEAL STRICTURE CANNOT BE ENTIRELY RULED OUT. THERE WAS DELAY IN PASSAGE OF THE 12 MM BARIUM TABLET FOR APPROXIMATELY 15 MINUTES. 2. EXTRINSIC MASS EFFECT UPON THE DISTAL ESOPHAGUS CAUSED BY THE DISTAL DESCENDING AORTA. 3. NO ASPIRATION WAS SEEN. Assessment & Plan - Diagnosis (1) Acute hypercapnic respiratory failure Is this a current diagnosis for this admission?: Yes Plan: Patient continues to require noninvasive positive pressure ventilation, BiPAP (2) Hypoventilation associated with obesity syndrome Is this a current diagnosis for this admission?: Yes (3) Permanent atrial fibrillation Is this a current diagnosis for this admission?: Yes Plan: continue eliquis (4) Hypothyroidism Qualifiers: Hypothyroidism type: acquired Qualified Code(s): E03.9 - Hypothyroidism, unspecified Is this a current diagnosis for this admission?: Yes (5) Achalasia Is this a current diagnosis for this admission?: Yes Plan: The barium study suggest achalasia with possible esophageal stricture, I spoke to Dr. Banegas, he will see the patient tomorrow, for now patient will be kept n.p.o., in fact the reason for the barium swallow was because patient aspirated on the food she was eating yesterdayI discussed the x-ray finding with the daughter - Time Time Spent with patient: 35 or more minutes Level of Care: [facility]
[2020-05-13] MEDS: RINGERS SOLUTION,LACTATED 1,000 ML IV PRN (19:00)
[2020-05-13] MEDS: ATORVASTATIN CALCIUM 40 MG TABLET PO SCH (21:00)
--- NOTE | 2020-05-13 23:23 | Progress Note ---
Provider Note Provider Note: CARDIOLOGY PROGRESS NOTE by Dr. Carmelina Plaza on 05/13/2020. SUBJECTIVE: The patient is very somnolent. She remains atrial fibrillation controlled ventricular response. The patient had a esophageal x-ray which showed the patient has achalasia.As being somnolent she moves all 4 extremities. Due to aspiration problem the patient is having a PEG tube placed. PHYSICAL EXAMINATION: The patient is morbidly obese. Selected Entries 05/13/20 19:49 Temperature 98.3 F Temperature Axillary Source Pulse Rate 76 Respiratory 18 Rate Blood Pressure 120/73 Blood Pressure 88 Mean BP Location Right Arm BP Position Sitting O2 Sat by Pulse 100 Oximetry Oxygen Flow 3.00 Rate Oxygen Delivery Nasal Cannula Method HEAD: Is atraumatic normocephalic. EYES: Pupils are equal round regular reactive to light and accommodation. Extraocular movements are normal. There is no conjunctival pallor. EARS: Tympanic membranes are intact. There is no lesions on the penis. Tympanic membranes are intact. NOSE: There is no deviated nasal septum. There is no inflammation of the nasal mucous membrane. MOUTH: Mucous membranes of mouth are moist tongue is moist. The patient's modified Mallampati class IV airway. THROAT: There is no redness of the oropharynx. There is no exudates. SKIN: There is no skin rashes. There is no petechia or ecchymosis. There is no skin lesions. There is no skin rashes. NECK: Supple. There is no JVD. Carotids are equal there is no bruit. There is no lymphadenopathy. There is no goiter. There is no accessory muscles of respiration use. Trachea central. LUNGS: There is diminished air entry and prolonged expiration. There is no rhonchi rales or wheezing. HEART: S1-S2 is heard. S1 is variable intensity. There is systolic murmur in the left sternal border and the apex there is no rub. ABDOMEN: Soft. Nontender obese. There is no paraspinal megaly. Bowel sounds are well heard. EXTREMITIES femorals are deep. Femorals are diminished. There is no femoral bruits. Leg pulses are diminished. There is no pedal edema. There is no DVT or cellulitis. There is no calf tenderness SKIVER UPPERS OR LININGS: The patient's conscious slightly drowsy moves all 4 extremities. PSYCHIATRIC poor. Detailed testing not done due to patient's mental status. She does not appear to be anxious or agitated. Chest X-Ray 05/08/20 16:50 IMPRESSION: Minimal left retrocardiac atelectasis Head CT 05/08/20 16:50 IMPRESSION: No acute findings. Stable ectasia of the basilar artery EVIDENCE OF ACUTE STROKE: NO. Chest X-Ray 05/10/20 00:00 IMPRESSION: 1. Stable cardiomegaly. 2. Improved aeration in the left lower lobe. 3. Nonspecific prominence the perihilar interstitial lung markings which is stable. Chest X-Ray 05/12/20 00:00 IMPRESSION: No significant interval change. No acute cardiopulmonary disease. Esophagus X-Ray 05/13/20 00:00 IMPRESSION: 1. MILD DILATATION AND POOR MOTILITY WITH BIRD BEAK APPEARANCE DISTALLY ALL WORRISOME FOR ESOPHAGEAL ACHALASIA. THE DISTAL ESOPHAGEAL STRICTURE CANNOT BE ENTIRELY RULED OUT. THERE WAS DELAY IN PASSAGE OF THE 12 MM BARIUM TABLET FOR APPROXIMATELY 15 MINUTES. 2. EXTRINSIC MASS EFFECT UPON THE DISTAL ESOPHAGUS CAUSED BY THE DISTAL DESCENDING AORTA. 3. NO ASPIRATION WAS SEEN. Labs- All tests 24 hr 05/13/20 05/13/20 05/13/20 06:34 07:07 07:07 WBC 4.5 RBC 3.33 L Hgb 10.5 L Hct 31.0 L MCV 93 MCH 31.5 MCHC 33.8 RDW 15.4 H Plt Count 161 Lymph % (Auto) 15.6 Lucas % (Auto) 9.8 Eos % (Auto) 2.7 Baso % (Auto) 0.4 Absolute Neuts (auto) 3.2 Absolute Lymphs (auto) 0.7 Absolute Monos (auto) 0.4 Absolute Eos (auto) 0.1 Absolute Basos (auto) 0.0 Seg Neutrophils % 71.5 Sodium 134.7 L Potassium 3.5 L Chloride 92 L Carbon Dioxide 38 H Anion Gap 5 BUN 15 Creatinine 0.43 L Est GFR ( Amer) > 60 Est GFR (MDRD) Non-Af > 60 Glucose 73 L POC Glucose 77 Calcium 8.4 05/13/20 05/13/20 12:47 18:08 WBC RBC Hgb Hct MCV MCH MCHC RDW Plt Count Lymph % (Auto) Lucas % (Auto) Eos % (Auto) Baso % (Auto) Absolute Neuts (auto) Absolute Lymphs (auto) Absolute Monos (auto) Absolute Eos (auto) Absolute Basos (auto) Seg Neutrophils % Sodium Potassium Chloride Carbon Dioxide Anion Gap BUN Creatinine Est GFR ( Amer) Est GFR (MDRD) Non-Af Glucose POC Glucose 88 86 Calcium MPRESSION/RECOMMENDATION: 1. Chest pain: At present resolved. It is difficult to make out if this is angina. But the patient has multiple CAD risk factors. Hence would recommend strongly continue patient metoprolol. There is no evidence of myocardial infarction. The patient has multiple CAD risk factors. Hence will change the topical Nitropaste to a transdermal nitro patch. 2. Acute on chronic hypercapnic respiratory failure: The patient's PCO2 is still elevated in spite of two 1 hour hours of being on BiPAP. Hence the patient definitely will require trilogy noninvasive ventilator at home. We will see how this can be arranged. We will see if we can get pulmonology involved. But first her means of taking nutrition has to be addressed. 3. Chronic atrial fibrillation: At present well-controlled heart rate. Continue Eliquis. Continue beta-tony 5. Hypertension: Blood pressure slightly elevated. This may be due to CO2 retention. Will observe the blood pressure and if needed increase the patient's ARB. 6. Obstructive sleep apnea: Noncompliant with CPAP. Patient strongly advised to be on CPAP. 7. Hypothyroidism: Continue replacement 8. Hyperlipidemia: Continue statin 9. Dementia: Continue her anti-dementia medication. 10. History of depression: Continue her antidepressants. 11. Achalasia of the esophagus: The patient is going to have a PEG tube 12. Morbid obesity. Would recommend GI work-up first at present cardiac status is stable. We will sign off. Medication medical regimen discussed with attending provider on the case. Minutes spent on this patient with more than 50% of time spent in direct patient care. Will sign off.
[2020-05-14 06:29] LABS: ANION GAP 7 (5-19); BLOOD UREA NITROGEN 17 mg/dL (7-20); CALCIUM 8.5 mg/dL (8.4-10.2); CARBON DIOXIDE 34 mmol/L (22-30); CHLORIDE 95 mmol/L (98-107); POTASSIUM 3.7 mmol/L (3.6-5.0)
[2020-05-14] MEDS: PANTOPRAZOLE SODIUM 40 MG TABLET.DR PO SCH (06:34)
[2020-05-14] MEDS: LEVOTHYROXINE SODIUM 0.112 MG TABLET PO SCH (06:34)
[2020-05-14 06:42] LABS: GLUCOSE 63 mg/dL (75-110)
[2020-05-14] MEDS ORDERED: DEXTROSE 50%-WATER 25 GM/50 ML DISP.SYRIN IV PRN ×2 (06:42)
[2020-05-14] MEDS ORDERED: GLUCAGON,HUMAN RECOMB 1 MG INJ SUBCUT PRN (06:42)
[2020-05-14] MEDS ORDERED: DEXTROSE 40% GEL 15 GM TUBE PO PRN ×2 (06:42)
[2020-05-14] MEDS: METOPROLOL SUCCINATE 50 MG TAB.SR.24H PO SCH (10:25)
[2020-05-14] MEDS: LOSARTAN POTASSIUM 50 MG TABLET PO SCH (10:29)
[2020-05-14] MEDS: APIXABAN 5 MG TABLET PO SCH ×2 (10:29→17:23)
[2020-05-14] MEDS: NITROFURANTOIN MONOHYD/M-CRYST 100 MG CAPSULE PO SCH (10:32)
[2020-05-14] MEDS: NITROGLYCERIN 15 MG (0.6 MG/1 HR) PATCH.TD24 TD SCH (10:32)
[2020-05-14] MEDS: CEFEPIME 1 GM/D5W RTU 1 GM/50 ML RTUPB IV SCH ×2 (10:33→21:22)
[2020-05-14] MEDS: SERTRALINE HCL 50 MG TABLET PO SCH (10:35)
--- NOTE | 2020-05-14 10:39 | PDOC CONSULTATION ---
Consultation Consult Date: 05/14/20 Attending physician:: NIKKI MCCULLOUGH Provider Consulted: ANI ADAMES History of Present Illness Admission Date/PCP: 05/08/20 22:05 NIKKI MCCULLOUGH MD Patient complains of: Reported choking sensation x1 after eating cake resulting in an upper GI which showed a question of achalasia History of Present Illness: GIUSEPPE WEINSTEIN is a 84 year old female bedridden female who lives in a [facility] who has a history of hypoventilation syndrome is been readmitted to this hospital this time for hypoventilation syndrome failure to thrive and weakness. She was recently admitted to the hospital where she had a cardiac event which required CPR for short time. She was eating some food during this hospital stay which resulted in a choking and coughing this was the first episode according to the patient of her ever having a difficult time eating. This episode resulted in a upper GI which showed a tapering of her distal esophagus with some tertiary contractions read by the radiologist as possible achalasia. Therefore surgical consult was made for possible treatment of her achalasia. The patient is essentially bedridden at this time. Past Medical History Cardiac Medical History: Reports: Atrial Fibrillation, Hyperlipidema, Hypertension Denies: Myocardial Infarction Pulmonary Medical History: Reports: Asthma, Chronic Obstructive Pulmonary Disease (COPD), Sleep Apnea - doesn't use cpap, Other - Obesity associated hypoventilation syndrome Neurological Medical History: Denies: Seizures Endocrine Medical History: Reports: Hypothyroidism GI Medical History: Reports: Gastroesophageal Reflux Disease, Hiatal Hernia Musculoskeltal Medical History: Reports: Arthritis Psychiatric Medical History: Reports: Depression Hematology: Denies: Anemia Past Surgical History Past Surgical History: Reports: Appendectomy, Orthopedic Surgery - bilat knee, Tonsillectomy, Tubal Ligation Denies: Hysterectomy Social History Lives with: [facility] Smoking Status: Unknown if Ever Smoked Electronic Cigarette use?: No Frequency of Alcohol Use: None Hx Recreational Drug Use: No Drugs: None Hx Prescription Drug Abuse: No Family History Family History: Reviewed & Not Pertinent Parental Family History Reviewed: No Children Family History Reviewed: NA Sibling(s) Family History Reviewed.: NA Medication/Allergy Home Medications: Atorvastatin Calcium [Lipitor 40 mg Tablet] 40 mg PO QHS 12/03/17 Sertraline HCl [Zoloft] 50 mg PO DAILY 12/03/17 Metoprolol Succinate [Toprol Xl 50 mg Tab.sr] 200 mg PO DAILY 03/22/19 Nitrofurantoin Macrocrystal [Macrodantin] 100 mg PO DAILY 03/22/19 Omeprazole 40 mg PO DAILY 03/22/19 Tramadol HCl [Ultram 50 mg Tablet] 50 mg PO Q6HP PRN #120 tablet 03/25/19 Alprazolam 1 mg PO DAILY 03/21/20 Levothyroxine Sodium [Levoxyl] 112 mcg PO DAILY 03/21/20 Losartan Potassium 50 mg PO DAILY 03/21/20 Memantine HCl/Donepezil HCl [Namzaric 28 mg-10 mg Capsule] 1 cap PO QHS 03/21/20 Allergies/Adverse Reactions: meperidine HCl [From Demerol] Allergy (Severe, Verified 03/21/20 03:24) Review of Systems Constitutional: PRESENT: weakness Ears: ABSENT: hearing changes Nose, Mouth, and Throat: ABSENT: as per HPI, headache(s), mouth pain, sore throat, vertigo, other Breasts: ABSENT: as per HPI, other Cardiovascular: ABSENT: as per HPI, chest pain, dyspnea on exertion, edema, orthropnea, palpitations, other Respiratory: ABSENT: as per HPI, cough, dyspnea, hemoptysis, sputum, other Gastrointestinal: ABSENT: as per HPI, abdominal pain, bloating, coffee ground emesis, constipation, diarrhea, dysphagia, heartburn, hematemesis, hematochezia, melena, nausea, vomiting, other Genitourinary: ABSENT: as per HPI, difficulty urinating, dysuria, hematuria, nocturia, other Musculoskeletal: ABSENT: as per HPI, back pain, deformity, joint swelling, muscle weakness, other Integumentary: ABSENT: rash, wounds Neurological: ABSENT: abnormal gait, abnormal speech, confusion, dizziness, focal weakness, syncope Psychiatric: ABSENT: anxiety, depression, homidical ideation, suicidal ideation Endocrine: ABSENT: cold intolerance, heat intolerance, polydipsia, polyuria Hematologic/Lymphatic: ABSENT: easy bleeding, easy bruising Allergic/Immunologic: ABSENT: as per HPI, seasonal rhinorrhea, other Physical Exam Vital Signs: Temp Pulse Resp BP Pulse Ox 98.2 F 196 H 15 123/91 H 91 L 05/14/20 07:25 05/14/20 07:25 05/14/20 07:25 05/14/20 07:25 05/14/20 07:25 Intake & Output 05/13/20 05/14/20 05/15/20 06:59 06:59 06:59 Intake Total 100 1100 Output Total 600 650 Balance -500 450 Weight 112.4 kg 119.2 kg General appearance: PRESENT: no acute distress, obese Head exam: PRESENT: normocephalic Eye exam: PRESENT: EOMI Mouth exam: PRESENT: moist Neck exam: PRESENT: full ROM Respiratory exam: PRESENT: clear to auscultation mary Cardiovascular exam: PRESENT: RRR Pulses: PRESENT: normal radial pulses, normal femoral pulses Vascular exam: PRESENT: normal capillary refill Breast: PRESENT: Normal GI/Abdominal exam: PRESENT: soft, other - There is a 2 cm reducible supraumbilical hernia Rectal exam: PRESENT: deferred Extremities exam: PRESENT: full ROM Musculoskeletal exam: PRESENT: full ROM Neurological exam: PRESENT: alert, awake Psychiatric exam: PRESENT: flat affect Skin exam: PRESENT: dry Results Laboratory Results: 05/13/20 07:07 05/14/20 05:31 05/14/20 05:31 Sodium 135.5 L Potassium 3.7 Chloride 95 L Carbon Dioxide 34 H Anion Gap 7 BUN 17 Creatinine 0.40 L Est GFR ( Amer) > 60 Glucose 63 L Calcium 8.5 05/09/20 00:48 Blood Blood Culture - Final NO GROWTH IN 5 DAYS 05/08/20 05/09/20 05/09/20 16:53 00:48 00:48 Creatine Kinase < 20 L CK-MB (CK-2) 0.44 Troponin I 0.012 < 0.012 NT-Pro-B Natriuret Pep 1330 H 05/09/20 05/09/20 05/09/20 05:45 05:45 12:30 Creatine Kinase < 20 L < 20 L CK-MB (CK-2) 0.38 Troponin I < 0.012 NT-Pro-B Natriuret Pep 05/09/20 05/10/20 05/10/20 12:30 15:35 15:35 Creatine Kinase CK-MB (CK-2) 0.52 Troponin I 0.017 0.021 NT-Pro-B Natriuret Pep 1520 H 05/11/20 05:20 Creatine Kinase CK-MB (CK-2) Troponin I 0.017 NT-Pro-B Natriuret Pep Impressions: Head CT 05/08/20 16:50 IMPRESSION: No acute findings. Stable ectasia of the basilar artery EVIDENCE OF ACUTE STROKE: NO. Chest X-Ray 05/12/20 00:00 IMPRESSION: No significant interval change. No acute cardiopulmonary disease. Esophagus X-Ray 05/13/20 00:00 IMPRESSION: 1. MILD DILATATION AND POOR MOTILITY WITH BIRD BEAK APPEARANCE DISTALLY ALL WORRISOME FOR ESOPHAGEAL ACHALASIA. THE DISTAL ESOPHAGEAL STRICTURE CANNOT BE ENTIRELY RULED OUT. THERE WAS DELAY IN PASSAGE OF THE 12 MM BARIUM TABLET FOR APPROXIMATELY 15 MINUTES. 2. EXTRINSIC MASS EFFECT UPON THE DISTAL ESOPHAGUS CAUSED BY THE DISTAL DESCENDING AORTA. 3. NO ASPIRATION WAS SEEN. Assessment & Plan - Plan Summary Plan Summary: Ms. Weinstein is a essentially an 84-year-old female who is bedridden at this time secondary to hypoventilation syndrome recent cardiac arrest in the hospital. She lives at [facility]. She was readmitted to the hospital now for hyper ventilation. [place] to be possible CO2 narcosis. She is improved during his hospital stay however had an episode where she felt like she was choking after eating some cake. This resulted in a upper GI which showed a question of esophageal achalasia with a distal esophageal tapering and tertiary contractions of her proximal esophagus. Consultation was made by Dr. Mccullough for possible surgical intervention for the achalasia. Upon evaluation the patient is clear that she is not a surgical candidate at t his time she is bedridden unable to really move around she has recently had a cardiac arrest she has only had one episode of choking problem and this is the first time she is ever complained of that. She has had an upper GI which shows no obstruction however there is distal esophageal tapering. She had a speech therapy evaluation and reported by the nurse that she does not have a risk of choking. Swallowing. Recommendation Patient could be seen as an outpatient in surgical clinic after her discharge when she has recovered from this hospitalization. It is if it is deemed that she is a candidate for surgery a laparoscopic myotomy could be performed for her achalasia. She will need a preoperative work-up with an esophageal motility study. Please reconsult surgery during this hospitalization if other issues arise. For now I would try her on a full liquid diet. And slowly advance that to a soft diet.
[2020-05-14] MEDS: RINGERS SOLUTION,LACTATED 1,000 ML IV PRN (19:49)
--- NOTE | 2020-05-14 19:58 | PDOC PROGRESS REPORT ---
Subjective Progress Note for:: 05/14/20 Subjective:: Patient seen by the bedside, she was seen by Dr. Banegas, he recommend full liquid diet, patient still requires BiPAP, she is not particularly ambulatory, hopefully she will be seen tomorrow by pulmonary, Trilogy is another, the plan is to discharge home with home health, hopefully in a day or 2 Reason For Visit: ACUTE HYPERCAPNIC RESPIRATORY FAILURE,?OBESITY Physical Exam Vital Signs: Temp Pulse Resp BP Pulse Ox 97.5 F 75 16 152/79 H 96 05/14/20 16:17 05/14/20 16:17 05/14/20 16:17 05/14/20 16:17 05/14/20 17:16 Intake & Output 05/13/20 05/14/20 05/15/20 06:59 06:59 06:59 Intake Total 100 1100 2192 Output Total 600 650 300 Balance -898 877 9081 Weight 112.4 kg 119.2 kg General appearance: PRESENT: no acute distress, morbidly obese Eye exam: PRESENT: PERRLA Respiratory exam: PRESENT: clear to auscultation mary Cardiovascular exam: PRESENT: +S1, +S2 GI/Abdominal exam: PRESENT: soft Neurological exam: PRESENT: alert Results Laboratory Results: 05/13/20 07:07 05/14/20 05:31 05/14/20 05:31 Sodium 135.5 L Potassium 3.7 Chloride 95 L Carbon Dioxide 34 H Anion Gap 7 BUN 17 Creatinine 0.40 L Est GFR ( Amer) > 60 Glucose 63 L Calcium 8.5 05/09/20 00:48 Blood Blood Culture - Final NO GROWTH IN 5 DAYS 05/08/20 05/09/20 05/09/20 16:53 00:48 00:48 Creatine Kinase < 20 L CK-MB (CK-2) 0.44 Troponin I 0.012 < 0.012 NT-Pro-B Natriuret Pep 1330 H 05/09/20 05/09/20 05/09/20 05:45 05:45 12:30 Creatine Kinase < 20 L < 20 L CK-MB (CK-2) 0.38 Troponin I < 0.012 NT-Pro-B Natriuret Pep 05/09/20 05/10/20 05/10/20 12:30 15:35 15:35 Creatine Kinase CK-MB (CK-2) 0.52 Troponin I 0.017 0.021 NT-Pro-B Natriuret Pep 1520 H 05/11/20 05:20 Creatine Kinase CK-MB (CK-2) Troponin I 0.017 NT-Pro-B Natriuret Pep Impressions: Head CT 05/08/20 16:50 IMPRESSION: No acute findings. Stable ectasia of the basilar artery EVIDENCE OF ACUTE STROKE: NO. Chest X-Ray 05/12/20 00:00 IMPRESSION: No significant interval change. No acute cardiopulmonary disease. Esophagus X-Ray 05/13/20 00:00 IMPRESSION: 1. MILD DILATATION AND POOR MOTILITY WITH BIRD BEAK APPEARANCE DISTALLY ALL WORRISOME FOR ESOPHAGEAL ACHALASIA. THE DISTAL ESOPHAGEAL STRICTURE CANNOT BE ENTIRELY RULED OUT. THERE WAS DELAY IN PASSAGE OF THE 12 MM BARIUM TABLET FOR APPROXIMATELY 15 MINUTES. 2. EXTRINSIC MASS EFFECT UPON THE DISTAL ESOPHAGUS CAUSED BY THE DISTAL DESCENDING AORTA. 3. NO ASPIRATION WAS SEEN. Assessment & Plan - Diagnosis (1) Acute hypercapnic respiratory failure Is this a current diagnosis for this admission?: Yes Plan: Patient continues to require noninvasive positive pressure ventilation, BiPAP (2) Hypoventilation associated with obesity syndrome Is this a current diagnosis for this admission?: Yes (3) Permanent atrial fibrillation Is this a current diagnosis for this admission?: Yes Plan: continue eliquis (4) Hypothyroidism Qualifiers: Hypothyroidism type: acquired Qualified Code(s): E03.9 - Hypothyroidism, unspecified Is this a current diagnosis for this admission?: Yes (5) Achalasia Is this a current diagnosis for this admission?: Yes Plan: Patient seen by the surgeon outpatient management recommended, clear liquid diet - Time Time Spent with patient: 35 or more minutes Level of Care: [facility]
[2020-05-14] MEDS: ATORVASTATIN CALCIUM 40 MG TABLET PO SCH (21:22)
[2020-05-15] MEDS: TRAMADOL HCL 50 MG TABLET PO PRN (00:08)
[2020-05-15] MEDS: PANTOPRAZOLE SODIUM 40 MG TABLET.DR PO SCH (05:57)
[2020-05-15] MEDS: LEVOTHYROXINE SODIUM 0.112 MG TABLET PO SCH (05:57)
[2020-05-15 07:23] LABS: BLOOD UREA NITROGEN 15 mg/dL (7-20); CALCIUM 8.4 mg/dL (8.4-10.2); CARBON DIOXIDE 36 mmol/L (22-30); CHLORIDE 95 mmol/L (98-107); GLUCOSE 87 mg/dL (75-110); POTASSIUM 3.7 mmol/L (3.6-5.0)
[2020-05-15 07:37] LABS: ANION GAP 4 (5-19)
[2020-05-15] MEDS: CEFEPIME 1 GM/D5W RTU 1 GM/50 ML RTUPB IV SCH ×2 (09:28→21:30)
[2020-05-15] MEDS: NITROGLYCERIN 15 MG (0.6 MG/1 HR) PATCH.TD24 TD SCH (09:29)
[2020-05-15] MEDS: LOSARTAN POTASSIUM 50 MG TABLET PO SCH (09:29)
[2020-05-15] MEDS: SERTRALINE HCL 50 MG TABLET PO SCH (09:29)
[2020-05-15] MEDS: APIXABAN 5 MG TABLET PO SCH ×2 (09:30→17:56)
[2020-05-15] MEDS: METOPROLOL SUCCINATE 50 MG TAB.SR.24H PO SCH (09:30)
[2020-05-15] MEDS: NITROFURANTOIN MONOHYD/M-CRYST 100 MG CAPSULE PO SCH (09:30)
--- NOTE | 2020-05-15 13:02 | PDOC CONSULTATION ---
Consultation Consult Date: 05/15/20 Attending physician:: ELI HUNTER Provider Consulted: TRINIDAD BENAVIDES Consult reason:: Acute on chronic respiratory failure History of Present Illness Admission Date/PCP: 05/08/20 22:05 NIKKI MCCULLOUGH MD History of Present Illness: GIUSEPPE RINCON is a 84 year old female With multiple medical problems including obesity hypoventilation syndrome obstructive sleep apnea atrial fibrillation and achalasia. She has demonstrated hypoxic as well as hypercapnic respiratory failure did not resolve with BiPAP. She also has COPD. She denies cough or hemoptysis PPD status unknown no history of chronic lung disease as a child or adolescent she is not sure how long she smoked when she or when she started. Past Medical History Cardiac Medical History: Reports: Atrial Fibrillation, Hyperlipidema, H ypertension Denies: Myocardial Infarction Pulmonary Medical History: Reports: Asthma, Chronic Obstructive Pulmonary Disease (COPD), Sleep Apnea - doesn't use cpap, Other - Obesity associated hypoventilation syndrome Neurological Medical History: Denies: Seizures Endocrine Medical History: Reports: Hypothyroidism GI Medical History: Reports: Gastroesophageal Reflux Disease, Hiatal Hernia Musculoskeltal Medical History: Reports: Arthritis Psychiatric Medical History: Reports: Dementia, Depression Traumatic Medical History: Denies: Gunshot Wound, Pneumothorax Hematology: Denies: Anemia, Sickle Cell Disease Infectious Medical History: Denies: Clostridium Difficile Past Surgical History Past Surgical History: Reports: Appendectomy, Orthopedic Surgery - bilat knee, Tonsillectomy, Tubal Ligation Denies: Hysterectomy Social History Information Source: COUNTS INCLUDE 234 BEDS AT THE [facility] Records Lives with: Fpc Smoking Status: Unknown if Ever Smoked Frequency of Alcohol Use: None Hx Recreational Drug Use: No Drugs: None Hx Prescription Drug Abuse: No Do you have pets?: No Have you had any respiratory illnesses as a child?: No Have you been exposed to any sick contacts recently?: No Have you had any recent respiratory illnesses?: No Have you travelled outside of [place] in the past 12 months?: No Family History Family History: None Parental Family History Reviewed: No Children Family History Reviewed: No Sibling(s) Family History Reviewed.: No Medication/Allergy Home Medications: Atorvastatin Calcium [Lipitor 40 mg Tablet] 40 mg PO QHS 12/03/17 Sertraline HCl [Zoloft] 50 mg PO DAILY 12/03/17 Metoprolol Succinate [Toprol Xl 50 mg Tab.sr] 200 mg PO DAILY 03/22/19 Nitrofurantoin Macrocrystal [Macrodantin] 100 mg PO DAILY 03/22/19 Omeprazole 40 mg PO DAILY 03/22/19 Tramadol HCl [Ultram 50 mg Tablet] 50 mg PO Q6HP PRN #120 tablet 03/25/19 Alprazolam 1 mg PO DAILY 03/21/20 Levothyroxine Sodium [Levoxyl] 112 mcg PO DAILY 03/21/20 Losartan Potassium 50 mg PO DAILY 03/21/20 Memantine HCl/Donepezil HCl [Namzaric 28 mg-10 mg Capsule] 1 cap PO QHS 03/21/20 Allergies/Adverse Reactions: meperidine HCl [From Demerol] Allergy (Severe, Verified 03/21/20 03:24) Review of Systems ROS unobtainable: Due to mental status Physical Exam Vital Signs: Temp Pulse Resp BP Pulse Ox 97.8 F 81 16 119/82 98 05/15/20 04:10 05/15/20 10:16 05/15/20 10:16 05/15/20 08:16 05/15/20 10:16 Intake & Output 05/14/20 05/15/20 05/16/20 06:59 06:59 06:59 Intake Total 1100 2478 Output Total 650 1200 Balance 450 1278 Weight 119.2 kg 121.9 kg General appearance: PRESENT: no acute distress, cooperative, disheveled, hard of hearing, well-developed, well-nourished Head exam: PRESENT: atraumatic, normocephalic Eye exam: PRESENT: conjunctiva pale, EOMI. ABSENT: nystagmus, periorbital swelling, scleral icterus Mouth exam: PRESENT: dry mucosa, neck supple, tongue midline Neck exam: ABSENT: carotid bruit, JVD, lymphadenopathy, tenderness, thyromegaly, tracheal deviation, tracheostomy Respiratory exam: PRESENT: decreased breath sounds, prolonged expiratory phas, rhonchi, symmetrical, unlabored. ABSENT: retraction, stridor, tachypnea, wheez es Cardiovascular exam: PRESENT: irregular rhythm Pulses: PRESENT: normal radial pulses Vascular exam: PRESENT: normal capillary refill GI/Abdominal exam: PRESENT: soft. ABSENT: guarding, mass, rebound, tenderness Extremities exam: PRESENT: +1 edema. ABSENT: calf tenderness, clubbing, joint swelling, tenderness Musculoskeletal exam: ABSENT: ambulatory Neurological exam: PRESENT: altered, awake Psychiatric exam: PRESENT: normal mood Focused psych exam: PRESENT: flight of ideas Skin exam: PRESENT: warm Results Laboratory Results: 05/13/20 07:07 05/15/20 06:07 05/15/20 06:07 Sodium 134.5 L Potassium 3.7 Chloride 95 L Carbon Dioxide 36 H Anion Gap 4 L BUN 15 Creatinine 0.36 L Est GFR ( Amer) > 60 Glucose 87 Calcium 8.4 05/08/20 05/09/20 05/09/20 16:53 00:48 00:48 Creatine Kinase < 20 L CK-MB (CK-2) 0.44 Troponin I 0.012 < 0.012 NT-Pro-B Natriuret Pep 1330 H 05/09/20 05/09/20 05/09/20 05:45 05:45 12:30 Creatine Kinase < 20 L < 20 L CK-MB (CK-2) 0.38 Troponin I < 0.012 NT-Pro-B Natriuret Pep 05/09/20 05/10/20 05/10/20 12:30 15:35 15:35 Creatine Kinase CK-MB (CK-2) 0.52 Troponin I 0.017 0.021 NT-Pro-B Natriuret Pep 1520 H 05/11/20 05:20 Creatine Kinase CK-MB (CK-2) Troponin I 0.017 NT-Pro-B Natriuret Pep Impressions: Head CT 05/08/20 16:50 IMPRESSION: No acute findings. Stable ectasia of the basilar artery EVIDENCE OF ACUTE STROKE: NO. Chest X-Ray 05/12/20 00:00 IMPRESSION: No significant interval change. No acute cardiopulmonary disease. Esophagus X-Ray 05/13/20 00:00 IMPRESSION: 1. MILD DILATATION AND POOR MOTILITY WITH BIRD BEAK APPEARANCE DISTALLY ALL WORRISOME FOR ESOPHAGEAL ACHALASIA. THE DISTAL ESOPHAGEAL ST RICTURE CANNOT BE ENTIRELY RULED OUT. THERE WAS DELAY IN PASSAGE OF THE 12 MM BARIUM TABLET FOR APPROXIMATELY 15 MINUTES. 2. EXTRINSIC MASS EFFECT UPON THE DISTAL ESOPHAGUS CAUSED BY THE DISTAL DESC ENDING AORTA. 3. NO ASPIRATION WAS SEEN. Assessment & Plan - Diagnosis (1) Hypoventilation associated with obesity syndrome Is this a current diagnosis for this admission?: Yes Plan: Noninvasive positive pressure ventilation (2) Acute global cerebral infarction Is this a current diagnosis for this admission?: Yes Plan: Resultant episodes of hypoventilation (3) Acute respiratory failure with hypoxia and hypercapnia Is this a current diagnosis for this admission?: Yes Plan: The above patient has failed BiPAP with a patent airway. This patient would benefit from noninvasive mechanical ventilation via the trilogy AVAPS/AE and faster responding AVAPS rates. The trilogy is able to provide a target tidal volume and also adjusting the EPAP pressures to maintain a patent airway as well as an oral backup rate this machine will help improve PaCO2 levels. The severity of the patient's condition will lead to future hospitalizations and readmissions as well as life-threatening situations without the use of this device day and night. Trilogy home vent needed for hypercapnic respiratory failure. [facility] or [facility] to follow for trilogy set up. (4) Atrial fibrillation with normal ventricular rate Is this a current diagnosis for this admission?: Yes Plan: Stable at this time - Time Time Spent with patient: 50 min Time Spent: 30 to 50 Minutes
--- NOTE | 2020-05-15 15:51 | PDOC PROGRESS REPORT ---
Subjective Progress Note for:: 05/15/20 Subjective:: Patient wants to go home, she has acute medical issues that have to be addressed before discharge 1 she has acute hypercapnic respiratory failure she was seen today by pulmonary Dr. swenson, Trilogy device recommended, this will be delivered by the bedside tomorrow for patient to use overnight hopefully discharge home on Wednesday, #2 she has achalasia with possible stricture, she is upset because she cannot eat solid food, I explained to her that solid food will not go through she probably will aspirate and choked on her food she will for now only eat clear liquid diet, she is not very happy with the option #3 ambulatory dysfunction she is nonambulatory essentially bedbound that is also very challenging Reason For Visit: ACUTE HYPERCAPNIC RESPIRATORY FAILURE,?OBESITY Physical Exam Vital Signs: Temp Pulse Resp BP Pulse Ox 97.4 F 76 16 123/99 H 100 05/15/20 12:10 05/15/20 14:00 05/15/20 12:10 05/15/20 12:10 05/15/20 12:10 Intake & Output 05/14/20 05/15/20 05/16/20 06:59 06:59 06:59 Intake Total 1100 2478 50 Output Total 650 1200 Balance 450 1278 50 Weight 119.2 kg 121.9 kg General appearance: PRESENT: no acute distress, morbidly obese Eye exam: PRESENT: PERRLA Respiratory exam: PRESENT: clear to auscultation mary Cardiovascular exam: PRESENT: +S1, +S2 GI/Abdominal exam: PRESENT: soft Neurological exam: PRESENT: alert, CN II-XII grossly intact Results Laboratory Results: 05/13/20 07:07 05/15/20 06:07 05/15/20 06:07 Sodium 134.5 L Potassium 3.7 Chloride 95 L Carbon Dioxide 36 H Anion Gap 4 L BUN 15 Creatinine 0.36 L Est GFR ( Amer) > 60 Glucose 87 Calcium 8.4 05/08/20 05/09/20 05/09/20 16:53 00:48 00:48 Creatine Kinase < 20 L CK-MB (CK-2) 0.44 Troponin I 0.012 < 0.012 NT-Pro-B Natriuret Pep 1330 H 05/09/20 05/09/20 05/09/20 05:45 05:45 12:30 Creatine Kinase < 20 L < 20 L CK-MB (CK-2) 0.38 Troponin I < 0.012 NT-Pro-B Natriuret Pep 05/09/20 05/10/20 05/10/20 12:30 15:35 15:35 Creatine Kinase CK-MB (CK-2) 0.52 Troponin I 0.017 0.021 NT-Pro-B Natriuret Pep 1520 H 05/11/20 05:20 Creatine Kinase CK-MB (CK-2) Troponin I 0.017 NT-Pro-B Natriuret Pep Impressions: Head CT 05/08/20 16:50 IMPRESSION: No acute findings. Stable ectasia of the basilar artery EVIDENCE OF ACUTE STROKE: NO. Chest X-Ray 05/12/20 00:00 IMPRESSION: No significant interval change. No acute cardiopulmonary disease. Esophagus X-Ray 05/13/20 00:00 IMPRESSION: 1. MILD DILATATION AND POOR MOTILITY WITH BIRD BEAK APPEARANCE DISTALLY ALL WORRISOME FOR ESOPHAGEAL ACHALASIA. THE DISTAL ESOPHAGEAL STRICTURE CANNOT BE ENTIRELY RULED OUT. THERE WAS DELAY IN PASSAGE OF THE 12 MM BARIUM TABLET FOR APPROXIMATELY 15 MINUTES. 2. EXTRINSIC MASS EFFECT UPON THE DISTAL ESOPHAGUS CAUSED BY THE DISTAL DESCENDING AORTA. 3. NO ASPIRATION WAS SEEN. Assessment & Plan - Diagnosis (1) Acute hypercapnic respiratory failure Is this a current diagnosis for this admission?: Yes Plan: Patient continues to require noninvasive positive pressure ventilation, BiPAP (2) Hypoventilation associated with obesity syndrome Is this a current diagnosis for this admission?: Yes Plan: Noninvasive positive pressure ventilation (3) Permanent atrial fibrillation Is this a current diagnosis for this admission?: Yes (4) Hypothyroidism Qualifiers: Hypothyroidism type: acquired Qualified Code(s): E03.9 - Hypothyroidism, unspecified Is this a current diagnosis for this admission?: Yes (5) Achalasia Is this a current diagnosis for this admission?: Yes - Time Time Spent with patient: 35 or more minutes Level of Care: [facility]
[2020-05-15] MEDS: ATORVASTATIN CALCIUM 40 MG TABLET PO SCH (21:30)
[2020-05-15] MEDS: RINGERS SOLUTION,LACTATED 1,000 ML IV PRN (21:31)
[2020-05-16] MEDS: LEVOTHYROXINE SODIUM 0.112 MG TABLET PO SCH (06:27)
[2020-05-16] MEDS: PANTOPRAZOLE SODIUM 40 MG TABLET.DR PO SCH (06:27)
[2020-05-16] MEDS: CEFEPIME 1 GM/D5W RTU 1 GM/50 ML RTUPB IV SCH ×2 (09:21→22:40)
[2020-05-16] MEDS: METOPROLOL SUCCINATE 50 MG TAB.SR.24H PO SCH (09:23)
[2020-05-16] MEDS: SERTRALINE HCL 50 MG TABLET PO SCH (09:23)
[2020-05-16] MEDS: APIXABAN 5 MG TABLET PO SCH ×2 (09:23→17:24)
[2020-05-16] MEDS: LOSARTAN POTASSIUM 50 MG TABLET PO SCH (09:23)
[2020-05-16] MEDS: NITROGLYCERIN 15 MG (0.6 MG/1 HR) PATCH.TD24 TD SCH (09:24)
[2020-05-16] MEDS: NITROFURANTOIN MONOHYD/M-CRYST 100 MG CAPSULE PO SCH (09:24)
--- NOTE | 2020-05-16 18:40 | PDOC PROGRESS REPORT ---
Subjective Progress Note for:: 05/16/20 Subjective:: Patient seen by the bedside she received the positive pressure ventilation device today, she will use the device overnight, she be discharged home tomorrow Reason For Visit: ACUTE HYPERCAPNIC RESPIRATORY FAILURE,?OBESITY Physical Exam Vital Signs: Temp Pulse Resp BP Pulse Ox 97.5 F 188 H 22 H 132/114 H 99 05/16/20 16:55 05/16/20 16:55 05/16/20 16:55 05/16/20 16:55 05/16/20 16:55 Intake & Output 05/15/20 05/16/20 05/17/20 06:59 06:59 06:59 Intake Total 1988 2899 408 Output Total 1200 6850 750 Balance 5567 -672 -443 Weight 121.9 kg 118.3 kg General appearance: PRESENT: no acute distress Eye exam: PRESENT: PERRLA Respiratory exam: PRESENT: clear to auscultation mary Cardiovascular exam: PRESENT: +S1, +S2 GI/Abdominal exam: PRESENT: soft Neurological exam: PRESENT: alert, CN II-XII grossly intact Results Laboratory Results: 05/13/20 07:07 05/15/20 06:07 05/08/20 05/09/20 05/09/20 16:53 00:48 00:48 Creatine Kinase < 20 L CK-MB (CK-2) 0.44 Troponin I 0.012 < 0.012 NT-Pro-B Natriuret Pep 1330 H 05/09/20 05/09/20 05/09/20 05:45 05:45 12:30 Creatine Kinase < 20 L < 20 L CK-MB (CK-2) 0.38 Troponin I < 0.012 NT-Pro-B Natriuret Pep 05/09/20 05/10/20 05/10/20 12:30 15:35 15:35 Creatine Kinase CK-MB (CK-2) 0.52 Troponin I 0.017 0.021 NT-Pro-B Natriuret Pep 1520 H 05/11/20 05:20 Creatine Kinase CK-MB (CK-2) Troponin I 0.017 NT-Pro-B Natriuret Pep Impressions: Head CT 05/08/20 16:50 IMPRESSION: No acute findings. Stable ectasia of the basilar artery EVIDENCE OF ACUTE STROKE: NO. Chest X-Ray 05/12/20 00:00 IMPRESSION: No significant interval change. No acute cardiopulmonary disease. Esophagus X-Ray 05/13/20 00:00 IMPRESSION: 1. MILD DILATATION AND POOR MOTILITY WITH BIRD BEAK APPEARANCE DISTALLY ALL WORRISOME FOR ESOPHAGEAL ACHALASIA. THE DISTAL ESOPHAGEAL STRICTURE CANNOT BE ENTIRELY RULED OUT. THERE WAS DELAY IN PASSAGE OF THE 12 MM BARIUM TABLET FOR APPROXIMATELY 15 MINUTES. 2. EXTRINSIC MASS EFFECT UPON THE DISTAL ESOPHAGUS CAUSED BY THE DISTAL DESCENDING AORTA. 3. NO ASPIRATION WAS SEEN. Assessment & Plan - Diagnosis (1) Acute hypercapnic respiratory failure Is this a current diagnosis for this admission?: Yes Plan: Patient continues to require NIPPV (2) Hypoventilation associated with obesity syndrome Is this a current diagnosis for this admission?: Yes Plan: Noninvasive positive pressure ventilation (3) Permanent atrial fibrillation Is this a current diagnosis for this admission?: Yes Plan: Continue Eliquis (4) Hypothyroidism Qualifiers: Hypothyroidism type: acquired Qualified Code(s): E03.9 - Hypothyroidism, unspecified Is this a current diagnosis for this admission?: Yes (5) Achalasia Is this a current diagnosis for this admission?: Yes - Time Time Spent with patient: 35 or more minutes Level of Care: [facility] Medications reviewed and adjusted accordingly: Yes
[2020-05-16] MEDS: ATORVASTATIN CALCIUM 40 MG TABLET PO SCH (22:40)
[2020-05-17] MEDS: PANTOPRAZOLE SODIUM 40 MG TABLET.DR PO SCH (05:23)
[2020-05-17] MEDS: LEVOTHYROXINE SODIUM 0.112 MG TABLET PO SCH (05:23)
--- NOTE | 2020-05-17 08:17 | PDOC DISCHARGE SUMMARY ---
Impression - Admit/DC Date/PCP Admission Date/Primary Care Provider: 05/08/20 22:05 NIKKI MCCULLOUGH MD Discharge Date: 05/17/20 - Discharge Diagnosis (1) Acute hypercapnic respiratory failure Is this a current diagnosis for this admission?: Yes (2) Hypoventilation associated with obesity syndrome Is this a current diagnosis for this admission?: Yes (3) Permanent atrial fibrillation Is this a current diagnosis for this admission?: Yes (4) Hypothyroidism Is this a current diagnosis for this admission?: Yes (5) Achalasia Is this a current diagnosis for this admission?: Yes - Additional Information Discharge Diet: Clear Liquids Discharge Activity: Activity As Tolerated, Keep Legs Elevated Referrals: [facility] [Outside] (Start of care Wednesday) NIKKI MCCULLOUGH MD [Primary Care Provider] - 05/23/20 1:45 pm Prescriptions: RX: Apixaban [Eliquis 5 mg Tablet] 5 mg PO BID #60 tablet Home Medications: RX: Atorvastatin Calcium [Lipitor 40 mg Tablet] 40 mg PO QHS 12/03/17 RX: Sertraline HCl [Zoloft] 50 mg PO DAILY 12/03/17 RX: Metoprolol Succinate [Toprol Xl 50 mg Tab.sr] 200 mg PO DAILY 03/22/19 RX: Nitrofurantoin Macrocrystal [Macrodantin] 100 mg PO DAILY 03/22/19 RX: Omeprazole 40 mg PO DAILY 03/22/19 RX: Tramadol HCl [Ultram 50 mg Tablet] 50 mg PO Q6HP PRN #120 tablet 03/25/19 RX: Alprazolam 1 mg PO DAILY 03/21/20 RX: Levothyroxine Sodium [Levoxyl] 112 mcg PO DAILY 03/21/20 RX: Losartan Potassium 50 mg PO DAILY 03/21/20 RX: Memantine HCl/Donepezil HCl [Namzaric 28 mg-10 mg Capsule] 1 cap PO QHS 03/21/20 RX: Apixaban [Eliquis 5 mg Tablet] 5 mg PO BID #60 tablet 05/16/20 History of Present Illiness History of Present Illness: GIUSEPPE RINCON is a 84 year old female, She has multiple comorbid conditions including obesity associated hypoventilation syndrome, obstructive sleep apnea, permanent atrial fibrillation, she is presently in the half-way at [place] undergoing physical therapy, I received a call from the half-way yesterday evening that patient was not responding. I was particularly concerned that she has developed CO2 narcosis. She had similar experience previously the last time she was admitted I suggested that patient should be transfer to the emergency room for evaluation which they did. In the emergency room she was evaluated she was found to have acute hypercapnic respiratory acidosis, the arterial blood gas, CO2 97.2 pH 7.32 patient breathing was supported with noninvasive positive pressure ventilation, BiPAP Hospital Course Hospital Course: Patient was admitted for the management of acute hypercapnic respiratory failure, dysphagia due to achalasia, stricture of the esophagus could not be rule out, ambulatory dysfunction. Patient with acute hypercapnic respiratory failure due to obesity associated hypoventilation syndrome, she required noninvasive positive pressure ventilation, BiPAP, she was seen in consultation by pulmonary, Dr. Carrasquillo,NIPPV was recommended for home use Trilogy Was recommended patient use the device last night, she has been discharged home on the device today.Patient was noticed to choke on food because of this incident she was kept n.p.o. barium swallow was ordered, it demonstrated possible achalasia stricture cannot be ruled out, consultation was requested from Dr. Banegas, I recommend clear liquid diet. Patient was upset with this diet consistency but unfortunately she cannot eat solid food because the food gets stuck in the esophagus due to achalasia/stricture,She also have ambulatory dysfunction she came from the half-way where she was undergoing physical therapy and rehabilitation, she was yet to ambulate in the half-way before this readmission. Family prefer to have patient discharged home to continue home physical therapy Physical Exam Vital Signs: Temp Pulse Resp BP Pulse Ox 98.4 F 58 L 20 166/91 H 100 05/17/20 04:42 05/17/20 04:42 05/17/20 04:42 05/17/20 04:42 05/17/20 04:42 Intake & Output 05/16/20 05/17/20 05/18/20 06:59 06:59 06:59 Intake Total 2899 1408 Output Total 6050 0840 Balance -851 -1542 Weight 118.3 kg 118.2 kg General appearance: PRESENT: no acute distress Eye exam: PRESENT: PERRLA Respiratory exam: PRESENT: clear to auscultation mary Cardiovascular exam: PRESENT: +S1, +S2 GI/Abdominal exam: PRESENT: soft Neurological exam: PRESENT: alert Results Laboratory Results: WBC 4.5 10^3/uL (4.0-10.5) 05/13/20 07:07 RBC 3.33 10^6/uL (3.72-5.28) L 05/13/20 07:07 Hgb 10.5 g/dL (12.0-15.5) L 05/13/20 07:07 Hct 31.0 % (36.0-47.0) L 05/13/20 07:07 MCV 93 fl (80-97) 05/13/20 07:07 MCH 31.5 pg (27.0-33.4) 05/13/20 07:07 MCHC 33.8 g/dL (32.0-36.0) 05/13/20 07:07 RDW 15.4 % (11.5-14.0) H 05/13/20 07:07 Plt Count 161 10^3/uL (150-450) 05/13/20 07:07 Lymph % (Auto) 15.6 % (13-45) 05/13/20 07:07 [place] % (Auto) 9.8 % (3-13) 05/13/20 07:07 Eos % (Auto) 2.7 % (0-6) 05/13/20 07:07 Baso % (Auto) 0.4 % (0-2) 05/13/20 07:07 Absolute Neuts (auto) 3.2 10^3/uL (1.7-8.2) 05/13/20 07:07 Absolute Lymphs (auto) 0.7 10^3/uL (0.5-4.7) 05/13/20 07:07 Absolute Monos (auto) 0.4 10^3/uL (0.1-1.4) 05/13/20 07:07 Absolute Eos (auto) 0.1 10^3/uL (0.0-0.6) 05/13/20 07:07 Absolute Basos (auto) 0.0 10^3/uL (0.0-0.2) 05/13/20 07:07 Seg Neutrophils % 71.5 % (42-78) 05/13/20 07:07 PT 19.6 SEC (11.4-15.4) H 05/09/20 00:48 INR 1.64 05/09/20 00:48 APTT 37.3 SEC (23.5-35.8) H 05/09/20 00:48 Carbonic Acid 1.55 mmol/L (1.05-1.35) H 05/11/20 14:20 HCO3/H2CO3 Ratio 21:1 05/11/20 14:20 ABG pH 7.42 (7.35-7.45) 05/11/20 14:20 ABG pCO2 51.5 mmHg (35-45) H 05/11/20 14:20 ABG pO2 87.1 mmHg (80-100) 05/11/20 14:20 ABG HCO3 32.9 mmol/L (20-24) H 05/11/20 14:20 ABG Total CO2 34.5 mmol/L (21-25) H 05/11/20 14:20 ABG O2 Saturation 96.7 % (94-98) 05/11/20 14:20 ABG Base Excess 7.3 mmol/L 05/11/20 14:20 FiO2 30% 05/11/20 14:20 Sodium 134.5 mmol/L (137-145) L 05/15/20 06:07 Potassium 3.7 mmol/L (3.6-5.0) 05/15/20 06:07 Chloride 95 mmol/L (98-107) L 05/15/20 06:07 Carbon Dioxide 36 mmol/L (22-30) H 05/15/20 06:07 Anion Gap 4 (5-19) L 05/15/20 06:07 BUN 15 mg/dL (7-20) 05/15/20 06:07 Creatinine 0.36 mg/dL (0.52-1.25) L 05/15/20 06:07 Est GFR ( Amer) > 60 (>60) 05/15/20 06:07 Est GFR (MDRD) Non-Af > 60 (>60) 05/15/20 06:07 Glucose 87 mg/dL (75-110) 05/15/20 06:07 POC Glucose 104 mg/dL (70-110) 05/14/20 07:27 Hemoglobin A1c % 5.1 % (4.7-6.0) 05/09/20 05:45 Calcium 8.4 mg/dL (8.4-10.2) 05/15/20 06:07 Phosphorus 3.6 mg/dL (2.5-4.5) 05/09/20 00:48 Magnesium 1.6 mg/dL (1.6-2.3) 05/09/20 00:48 Total Bilirubin 0.5 mg/dL (0.2-1.3) 05/08/20 16:53 Direct Bilirubin 0.0 mg/dL (0.0-0.4) 05/08/20 16:53 Neonat Total Bilirubin Not Reportable 05/08/20 16:53 Neonat Direct Bilirubin Not Reportable 05/08/20 16:53 Neonat Indirect Bili Not Reportable 05/08/20 16:53 AST 25 U/L (14-36) 05/08/20 16:53 ALT 12 U/L (<35) 05/08/20 16:53 Alkaline Phosphatase 73 U/L (38-126) 05/08/20 16:53 Ammonia < 8.7 umol/L (9-33) L 05/09/20 00:48 Creatine Kinase < 20 U/L (30-135) L 05/09/20 12:30 CK-MB (CK-2) 0.52 ng/mL (<4.55) 05/09/20 12:30 Troponin I 0.017 ng/mL 05/11/20 05:20 NT-Pro-B Natriuret Pep 1520 pg/mL (<450) H 05/10/20 15:35 Total Protein 5.6 g/dL (6.3-8.2) L 05/08/20 16:53 Albumin 2.7 g/dL (3.5-5.0) L 05/08/20 16:53 Triglycerides 114 mg/dL (<150) 05/09/20 05:45 Cholesterol 83.44 mg/dL (0-200) 05/09/20 05:45 LDL Cholesterol Direct < 30 mg/dL (<100) 05/09/20 05:45 VLDL Cholesterol 23.0 mg/dL (10-31) 05/09/20 05:45 HDL Cholesterol 43 mg/dL (>40) 05/09/20 05:45 Amylase < 30 U/L (30-110) L 05/09/20 00:48 Lipase 24.7 U/L (23-300) 05/09/20 00:48 TSH 4.87 uIU/mL (0.47-4.68) H 05/09/20 00:48 Free T4 1.33 ng/dL (0.78-2.19) 05/09/20 00:48 Urine Color YELLOW 05/08/20 19:19 Urine Appearance CLEAR 05/08/20 19:19 Urine pH 6.0 (5.0-9.0) 05/08/20 19:19 Ur Specific [place] 1.019 05/08/20 19:19 Urine Protein NEGATIVE mg/dL (NEGATIVE) 05/08/20 19:19 Urine Glucose (UA) NEGATIVE mg/dL (NEGATIVE) 05/08/20 19:19 Urine Ketones NEGATIVE mg/dL (NEGATIVE) 05/08/20 19:19 Urine Blood NEGATIVE (NEGATIVE) 05/08/20 19:19 Urine Nitrite NEGATIVE (NEGATIVE) 05/08/20 19:19 Urine Bilirubin NEGATIVE (NEGATIVE) 05/08/20 19:19 Urine Urobilinogen 4.0 mg/dL (<2.0) H 05/08/20 19:19 Ur Leukocyte Esterase NEGATIVE (NEGATIVE) 05/08/20 19:19 Urine WBC (Auto) 1 /HPF 05/08/20 19:19 Urine RBC (Auto) 1 /HPF 05/08/20 19:19 Urine Mucus (Auto) OCC /LPF 05/08/20 19:19 Urine Ascorbic Acid NEGATIVE (NEGATIVE) 05/08/20 19:19 Urine Opiates Screen NEGATIVE 05/08/20 19:19 Urine Methadone Screen NEGATIVE 05/08/20 19:19 Ur Barbiturates Screen NEGATIVE 05/08/20 19:19 Ur Phencyclidine Scrn NEGATIVE 05/08/20 19:19 Ur Amphetamines Screen NEGATIVE 05/08/20 19:19 U Benzodiazepines Scrn NEGATIVE 05/08/20 19:19 Urine Cocaine Screen NEGATIVE 05/08/20 19:19 U Marijuana (THC) Screen NEGATIVE 05/08/20 19:19 05/08/20 05/09/20 05/09/20 16:53 00:48 05:45 CK-MB (CK-2) 0.44 0.38 Troponin I 0.012 < 0.012 < 0.012 NT-Pro-B Natriuret Pep 1330 H 05/09/20 05/10/20 05/10/20 12:30 15:35 15:35 CK-MB (CK-2) 0.52 Troponin I 0.017 0.021 NT-Pro-B Natriuret Pep 1520 H 05/11/20 05:20 CK-MB (CK-2) Troponin I 0.017 NT-Pro-B Natriuret Pep Impressions: Chest X-Ray 05/08/20 16:50 IMPRESSION: Minimal left retrocardiac atelectasis Head CT 05/08/20 16:50 IMPRESSION: No acute findings. Stable ectasia of the basilar artery EVIDENCE OF ACUTE STROKE: NO. Chest X-Ray 05/10/20 00:00 IMPRESSION: 1. Stable cardiomegaly. 2. Improved aeration in the left lower lobe. 3. Nonspecific prominence the perihilar interstitial lung markings which is stable. Chest X-Ray 05/12/20 00:00 IMPRESSION: No significant interval change. No acute cardiopulmonary disease. Esophagus X-Ray 05/13/20 00:00 IMPRESSION: 1. MILD DILATATION AND POOR MOTILITY WITH BIRD BEAK APPEARANCE DISTALLY ALL WORRISOME FOR ESOPHAGEAL ACHALASIA. THE DISTAL ESOPHAGEAL STRICTURE CANNOT BE ENTIRELY RULED OUT. THERE WAS DELAY IN PASSAGE OF THE 12 MM BARIUM TABLET FOR APPROXIMATELY 15 MINUTES. 2. EXTRINSIC MASS EFFECT UPON THE DISTAL ESOPHAGUS CAUSED BY THE DISTAL DESCENDING AORTA. 3. NO ASPIRATION WAS SEEN. Stroke Is this a Stroke Patient?: No Acute Heart Failure - Is this a Heart Failure Patient?: No
[2020-05-17] MEDS: LOSARTAN POTASSIUM 50 MG TABLET PO SCH (10:58)
[2020-05-17] MEDS: NITROFURANTOIN MONOHYD/M-CRYST 100 MG CAPSULE PO SCH (10:58)
[2020-05-17] MEDS: APIXABAN 5 MG TABLET PO SCH (10:58)
[2020-05-17] MEDS: METOPROLOL SUCCINATE 50 MG TAB.SR.24H PO SCH (10:59)
[2020-05-17] MEDS: NITROGLYCERIN 15 MG (0.6 MG/1 HR) PATCH.TD24 TD SCH (11:01)
[2020-05-17] MEDS: SERTRALINE HCL 50 MG TABLET PO SCH (11:01)
[2020-05-17] MEDS: CEFEPIME 1 GM/D5W RTU 1 GM/50 ML RTUPB IV SCH (11:04)
[2020-05-17 12:54] VITALS: BP 152/90
== END 2020-05-17 14:00 | disposition home or self-care (01) | DRG 189 ==
LOC: ER 16:18 → EH 22:05 → 3S 23:46
PROVIDERS: ADMIT Internal Medicine; ATTEND Internal Medicine
PROC: 5A09357 Assistance with Respiratory Ventilation, Less than 24 Consecutive Hours, Continuous Positive Airway Pressure (ICD-10-PCS; principal; 2020-05-08)
DX: J96.22 Acute and chronic respiratory failure with hypercapnia (principal); E66.2 Morbid (severe) obesity with alveolar hypoventilation; I48.21 Permanent atrial fibrillation; Z68.41 Body mass index [BMI] 40.0-44.9, adult; K22.0 Achalasia of cardia; R62.7 Adult failure to thrive; J44.9 Chronic obstructive pulmonary disease, unspecified; I11.0 Hypertensive heart disease with heart failure; I50.9 Heart failure, unspecified; F03.90 Unspecified dementia, unspecified severity, without behavioral disturbance, psychotic disturbance, mood disturbance, and anxiety; Z86.74 Personal history of sudden cardiac arrest; J96.01 Acute respiratory failure with hypoxia; E03.9 Hypothyroidism, unspecified; G47.33 Obstructive sleep apnea (adult) (pediatric); R13.10 Dysphagia, unspecified; R26.9 Unspecified abnormalities of gait and mobility; E78.5 Hyperlipidemia, unspecified; K21.9 Gastro-esophageal reflux disease without esophagitis; K44.9 Diaphragmatic hernia without obstruction or gangrene; M19.90 Unspecified osteoarthritis, unspecified site; F32.9 Major depressive disorder, single episode, unspecified; R79.89 Other specified abnormal findings of blood chemistry; Z79.01 Long term (current) use of anticoagulants; Z79.899 Other long term (current) drug therapy; Z88.6 Allergy status to analgesic agent; Z74.01 Bed confinement status; I25.2 Old myocardial infarction; Z91.19 Patient's noncompliance with other medical treatment and regimen
CPT/HCPCS: 36415; 36600; 70450; 71045; 74220; 80048; 80053; 80061; 80307; 81001; 82140; 82150; 82550; 82553; 82803; 82962; 83036; 83690; 83735; 83880; 84100; 84439; 84443; 84484; 85025; 85610; 85730; 87040; 87077; 87086; 87150; 93005; 93010; 94660; 99285; J0692; J3490; J7120; J8499

== ENCOUNTER 2020-08-03 14:32 | Inpatient (IN) | payer MEDICARE, OTHER ==
[2020-08-03] MEDS ORDERED: NORMAL SALINE 250 ML IV ONE (15:07)
--- NOTE | 2020-08-03 15:51 | RADIOLOGY REPORT (SQ) ---
EXAM DESCRIPTION: CHEST SINGLE VIEW IMAGES COMPLETED DATE/TIME: 08/03/2020 2:26 pm REASON FOR STUDY: decreased breath sounds COMPARISON: 05/12/2020 EXAM PARAMETERS: NUMBER OF VIEWS: One view. TECHNIQUE: Single frontal radiographic view of the chest acquired. RADIATION DOSE: NA LIMITATIONS: None. FINDINGS: LUNGS AND PLEURA: Low lung volumes. Small right pleural effusion with compressive atelect asis at the right lung base. No left effusion. No pneumothorax. Lungs are hyperinflated. MEDIASTINUM AND HILAR STRUCTURES: No masses. Contour normal. HEART AND VASCULAR STRUCTURES: Moderate cardiomegaly. No pulmonary vascular congestion. BONES: No acute findings. HARDWARE: None in the chest. OTHER: No other significant finding. IMPRESSION: Small right pleural effusion with compressive atelectasis/consolidation at the right ronal g base. TECHNICAL DOCUMENTATION: JOB ID: [id number] [employer]- All Rights Reserved Reading location - IP/workstation name: [email or web address]
[2020-08-03 16:08] LABS: APPEARANCE,URINE CLEAR; BILIRUBIN,URINE NEGATIVE (NEGATIVE); COLOR,URINE YELLOW; GLUCOSE, URINE NEGATIVE (NEGATIVE); KETONES,URINE TRACE mg/dL (NEGATIVE); LEUKOCYTE ESTERASE,URINE NEGATIVE (NEGATIVE); NITRITE,URINE NEGATIVE (NEGATIVE); PROTEIN,URINE NEGATIVE (NEGATIVE); URINE SPECIFIC GRAVITY 1.011
--- NOTE | 2020-08-03 16:19 | ER Document Report ---
Entered by KELLY ALEMAN SCRIBE 08/03/20 1521 Acting as scribe for:STAN OLIVER MD ED General - General Chief Complaint: Altered Mental Status Stated Complaint: ALTERED MENTAL STATUS Primary Care Provider: NIKKI MCCULLOUGH MD [Primary Care Provider] - Follow up as needed Mode of Arrival: Medic Information source: POA - Power of Automotive Painter - Daughter Notes: This 85 year old female patient with a history significant for HTN, CHF, chronic A fib with RVR on Eliquis, and COPD brought in by EMS from home presents to the ED today with complaints of altered mental status. Daughter at bedside reports that the patient has been "talking loopy" since yesterday and presented with decreased responsiveness. She further reports foul-smelling odor to urine and is concerned that the patient may have an UTI. She states that she was advised by Dr. Mccullough to bring the patient in to the ED for evaluation. Denies fever, cough, or bloody stools. TRAVEL OUTSIDE OF THE [place] IN LAST 30 DAYS: No - Related Data Allergies/Adverse Reactions: meperidine HCl [From Demerol] Allergy (Severe, Verified 03/21/20 03:24) Past Medical History - General Information source: POA - Power of Automotive Painter - Daughter, [facility] Records - Social History Smoking Status: Unknown if Ever Smoked Smoking Education Provided: No Lives with: Family Family History: Reviewed & Not Pertinent - Past Medical History Cardiac Medical History: Reports: Hx Atrial Fibrillation, Hx Hypercholesterolemia, Hx Hypertension Pulmonary Medical History: Reports: Hx Asthma, Hx COPD, Hx Sleep Apnea - doesn't use cpap Endocrine Medical History: Reports: Hx Hypothyroidism GI Medical History: Reports: Hx Gastroesophageal Reflux Disease, Hx Hiatal Her [facility] Musculoskeletal Medical History: Reports Hx Arthritis Psychiatric Medical History: Reports: Hx Dementia, Hx Depression Past Surgical History: Reports: Hx Appendectomy, Hx Orthopedic Surgery - bilat knee, Hx Tonsillectomy, Hx Tubal Ligation - Immunizations Hx Diphtheria, Pertussis, Tetanus Vaccination: Yes Hx Pneumococcal Vaccination: 09/03/12 Review of Systems - Review of Systems Constitutional: See HPI. denies: Fever EENT: No symptoms reported Cardiovascular: No symptoms reported Respiratory: See HPI. denies: Cough Gastrointestinal: See HPI. denies: Blood streaked bowels Genitourinary: See HPI, Other - Foul-smelling odor Female Genitourinary: No symptoms reported Musculoskeletal: No symptoms reported Skin: No symptoms reported Hematologic/Lymphatic: No symptoms reported Neurological/Psychological: See HPI, Speech impairment, Other - Altered mental status -: Yes All other systems reviewed and negative Physical Exam - Vital signs Vitals: Resp 20 08/03/20 14:47 - General General appearance: Lethargic - arousable to voice - HEENT Head: Normocephalic, Atraumatic Eyes: Normal Pupils: PERRL - Respiratory Respiratory status: No respiratory distress Chest status: Nontender Breath sounds: Normal Chest palpation: Normal - Cardiovascular Rhythm: Regular Heart sounds: Normal auscultation Murmur: No Friction rub: No Gallop: None auscultated Normal capillary refill: No - Delayed - Abdominal Inspection: Normal Distension: No distension Bowel sounds: Normal Tenderness: Nontender - Abdomen soft Organomegaly: No organomegaly - Back Back: Normal, Nontender - Extremities General upper extremity: Normal inspection General lower extremity: Normal inspection. No: Edema - Neurological Tonya Coma Scale Eye Opening: To Voice Stowell Coma Scale Verbal: Incomprehensible Tonya Coma Scale Motor: None Tonya Coma Scale Total: 6 Speech: Dysarthria - Psychological Associated symptoms: Other - Altered mental status - Skin Skin Temperature: Warm Skin Moisture: Dry Skin Color: Pale Course - Re-evaluation Re-evalutation: 08/03/20 16:17 Unable to complete NIH score because patient is lethargic and sleeps. 08/03/20 17:52 We have learned that patient has CO2 narcosis and is the reason of her lethargy and preference to sleep. Her venous blood gas came back showing a elevated PCO2 of 74. We discontinued patient's oxygen and stimulated her to take deep breaths and patient's alertness status improved. Patient does get tired and had to be s timulated again to breathe and take deep respirations. At this time BiPAP has been requested and has not arrived to the room is gotten patient has been stimulated by family at this time to continue to take deep breaths. Case has been discussed with Dr. Paz who will admit patient to the telemetry floor with the assignment to Dr. Mccullough who is her primary care provider. - Vital Signs Vital signs: Temp Pulse Resp BP Pulse Ox 98.5 F 21 H 135/90 H 08/03/20 15:48 08/03/20 17:01 08/03/20 17:01 Vital signs show a blood pressure 135/90 respiratory rate 21 and afebrile. Pulse oximetry ranges from 95-85. - Laboratory Result Diagrams: 08/03/20 16:20 08/03/20 16:20 Laboratory results interpreted by me: 08/03/20 08/03/20 08/03/20 15:43 16:20 16:20 RDW 14.3 H PT APTT VBG pCO2 VBG HCO3 Sodium 135.9 L Potassium 3.4 L Chloride 90 L Carbon Dioxide 38 H BUN 23 H Creatine Kinase < 20 L NT-Pro-B Natriuret Pep Albumin 3.3 L Lipase 22.0 L Urine Ketones TRACE H Urine Urobilinogen 2.0 H Urine Ascorbic Acid 20 H 08/03/20 08/03/20 08/03/20 16:20 16:20 16:20 RDW PT 18.1 H APTT 45.6 H VBG pCO2 73.8 H* VBG HCO3 38.2 H Sodium Potassium Chloride Carbon Dioxide BUN Creatine Kinase NT-Pro-B Natriuret Pep 4970 H Albumin Lipase Urine Ketones Urine Urobilinogen Urine Ascorbic Acid Laboratories show a BNP of 4970 and a troponin of 0.13. Patient's venous blood gas with a PCO2 of 74 - Diagnostic Test Radiology reviewed: Image reviewed, Reports reviewed Radiology results interpreted by me: 08/03/20 16:41 Chest X-Ray 08/03/20 15:05 IMPRESSION: Small right pleural effusion with compressive atelectasis/consolidation at the right lung base. Chest x-ray shows a small right pleural effusion with compressive atelectasis or consolidation of the right base otherwise no acute process. 08/03/20 16:58 Chest X-Ray 08/03/20 15:05 IMPRESSION: Small right pleural effusion with compressive atelectasis/consolidation at the right lung base. Head CT 08/03/20 15:08 IMPRESSION: No acute intracranial hemorrhage, mass, or evidence of acute territorial infarct. Mild chronic small vessel ischemic change and intracranial atherosclerosis. EVIDENCE OF ACUTE STROKE: NO. Head CT shows no evidence for an acute stroke there is mild chronic small vessel ischemic changes and intracranial atherosclerosis noted. 08/03/20 17:55 Chest x-ray shows small right pleural effusion with compressive atelectasis consolidation right base. Patient has been taking shallow respirations due to her CO2 narcosis. Head CT shows no evidence for an acute stroke. - EKG Interpretation by Me Additional EKG results interpreted by me: 08/03/20 16:56 Twelve-lead EKG shows atrial fibrillation with frequent PVCs. Patient has variable LA and QT interval QRS RS intervals within normal limits except when there is a PVC showing a left bundle branch block pattern. Patient has a left axis deviation axis no acute ST T wave changes to suggest an acute MO. Discharge - Discharge Clinical Impression: Chronic atrial fibrillation, CO2 narcosis, COPD (chronic obstructive pulmonary disease), Sleep apnea Condition: Fair Disposition: ADMITTED INPATIENT Admitting Provider: [facility] Admitted: Telemetry Referrals: NIKKI MCCULLOUGH MD [Primary Care Provider] - Follow up as needed ED [employer]te[employer]/Exc Criteria - Date/Time patient last known well: Date/Time: 08/02/2020 - Date/Time patient arrived in ED: _: 08/03/2020 - Inclusion Criteria: 1: Patient presented to ED within 3 hours of acute ischemic stroke symptom onset? -: No 2: Did baseline CT exclude intracranial hemorrhage and/or other risk factors? -: Yes 3: Is the age of the patient 18 years of age or greater? -: Yes : If any of the above questions are answered "NO" then stop, patient is not a candidate for Alteplase, : If all of the above questions are answered "YES" then continue with E xclusion Criteria. - Exclusion Criteria: 1: Is there evidence of intracranial hemorrhage on baseline CT? 2: Is there suspicion of subarachnoid hemorrhage (even if CT negative)? 3: Is there a history of serious head trauma, recent previous stroke or MO within 3 months? 4: Does the patient have a clinical presentation consistent with MO or post-MO pericarditis? 5: Is there history of intracranial hemorrhage? 6: On repeated measurement is Systolic BP greater than 185mmHg or Diastolic BP greater that 110 mmHg and is aggressive treatment needed to reduce blood pressure to these limits (e.g. constant infusion of an anti-hypertensive)? 7: Did the patient awake with stroke symptoms? 8: Has the patient had a lumbar puncture or an arterial puncture at a non- compressile site within 7 days? 9: With in the last 14 days did the patient have surgery or major trauma? 10: Is the patient or less than 2 weeks? 11: Was there any active bleeding or acute trauma? 12: Does the patient have intracranial neoplasm, arteriovenous malformation or aneurysm? 13: Does the patient have abnormal glucose (less than 50 or greater than 400mg/dl)? Record glucose in Comment. 14: Patient has rapidly improving symptoms at the time Alteplase is to be Administered. 15: Does the patient have any risks for bleeding, including but not limited to: a.: Current use of Coumadin with PT greater than 15 seconds or INR greater than 1.7. b.: Current use of Pradaxa (Dabigatran). c.: Heparin administereed within the past 48 hours and PTT elevated. d.: Platelet count less than 100,000/mm. e.: Major surgery or serious trauma within 14 days. f.: Gastrointestinal or gynecological urinary bleeding within 14 days. g.: Myocardial Infarction (MO) within 3 months. : If the answer to any of the above questions is "YES" then stop, the patient is not a candidate for Alteplase. : If the answer to all of the above questions is "NO" then the patient may be eligible for the Administration of Alteplase. : If the patient is noted to have seizure activity at onset of Stroke symptoms; Consult Neurologist for further evaluation. - The patient is: -: Included and is eligible to receive Alteplase. *Initiate bed placement at higher level of care* Reviewed risks & benefits of thrombolytic therapy: I have reviewed the risks and benefits of thrombolytic therapy with the patient and/or his/her family. -: Excluded and not eligible to receive Alteplase for the above exclusions. -: Excluded and not eligible to receive Alteplase for other reasons (specify in comments): - Diagnosis of TIA: -: Patient presented with transient symptoms that are now resolved and no other neurologic findings are currently present. List symptoms in comments. -: Patient is NOT a candidate for tPA. -: ____(put name in comment) has been consulted for admission and continued evaluation of risk factor assessment. ED NIH Stroke Scale - NIH Stroke Scale When completed:: Protocol *: 1. NIH scale should be completed with appropriate accompanying assessment tools. *: 2. The NIH should reflect what the patient is capable of doing and should not be coached by the clinician. 1a. Level of Consciousness: 0=Alert;keenly responsive -: 1=Drowsy -: 2=Obtunded -: 3=Coma/unresponsive or reflex to noxious stimuli. 1a. Responses: 1 1b. Orientation Questions: a. What month is it? -: b. How old are you? -: 0=Answers both questions correctly. -: 1=Answers one question correctly or patient is intubated or has orotracheal trauma. -: 2=Answers neither question correctly. 1b. Responses: 2 1c. Response to commands: a. Open and close eyes? -: b. Assistant Commissioner and release hand? -: Credit is given despite weakness. Demonstration of task is permitted. Substitute command if hands cannot be used. -: 0=Performs both tasks correctly -: 1=Performs one task correctly -: 2=Performs neither task correctly 1c. Responses: 2 2. Gaze: Establish eye contact and instruct patient to "Follow my finger" -: 0=Normal -: 1=Partial gaze palsy. Gaze is abnormal in one or both eyes, but where forced deviation or total gaze paresis is not present. -: 2=Forced deviation or total gaze paresis. 3. Visual Duncan: Sees fingers in all four quadrants. -: 0=No visual loss. -: 1=Partial hemianopsia. -: 2=Complete hemianopsia. -: 3=Bilateral hemianopsia (including Cortical blindness) 4. Facial Movement: Instruct patient to: -: a. Show me your teeth -: b. Raise your eyebrows -: c. Close your eyes -: d. Smile -: 0=Normal symmetrical movement -: 1=Minor paralysis (flattened nasolabial fold, asymmetry on smiling). -: 2=Partial paralysis (total or near total paralysis of lower face). -: 3=Complete paralysis of upper and lower face 5. Motor functions (left arm): Alternate sides and extend each arm with palms down (90 degrees if sitting or 45 degrees for supine). -: 0=No drift;limb holds for full 10 seconds. -: 1=Drift; limb holds but drifts down before full 10 seconds, but does not hit bed. -: 2=Some effort against gravity; limb cannot get to or maintain position. -: 3=No effort against gravity; limb falls. -: 4=No movement. -: UN=Amputation, joint fusion, explain in comments. 5. Motor Functions (right arm): Alternate sides and extend each arm with palms down (90 degrees if sitting or 45 degrees for supine). -: 0=No drift;limb holds for full 10 seconds. -: 1=Drift; limb holds but drifts down before full 10 seconds, but does not hit bed. -: 2=Some effort against gravity; limb cannot get to or maintain position. -: 3=No effort against gravity; limb falls. -: 4=No movement. -: UN=Amputation, joint fusion, explain in comments. 6. Motor Functions (left leg): With patient lying supine, alternate sides and extend each leg (30 degrees always while supine). -: 0=No drift, leg holds position for full 5 seconds -: 1=Drift; leg falls before full 5 seconds but does not hit bed. -: 2=Some effort against gravity, leg falls to bed but some effort against gravity. -: 3=No effort against gravity, leg falls to bed immediately. -: 4=No movement. -: UN=Amputation, joint fusion; explain in comments. 6. Motor Functions (right leg): With patient lying supine, alternate sides and extend each leg (30 degrees always while supine). -: 0=No drift, leg holds position for full 5 seconds -: 1=Drift; leg falls before full 5 seconds but does not hit bed. -: 2=Some effort against gravity, leg falls to bed but some effort against gravity. -: 3=No effort against gravity, leg falls to bed immediately. -: 4=No movement. -: UN=Amputation, joint fusion; explain in comments. 7. Limb Ataxia: With eyes open instruct patient to: -: a. "Touch your finger to your nose". -: b. "Touch your heel to your ray" -: 0=Absent -: 1=Present in one limb. -: 2=Present in two limbs. -: UN=Amputation or joint fusion; explain in comments. 8. Sensory: Test sensation using pinprick or noxious stimuli. Test as many body parts as possible. -: 0=Normal;no sensory loss -: 1=Mile to moderate sensory loss (patient feels pin prick but is less sharp on affected side). -: 2=Severe or total sensory loss. 9. Best Language: Instruct patient to: -: a. "Describe what you see in this picture." -: b. "Name the items in this picture." -: c. "Read these sentences." -: 0=No aphasia, normal -: 1=Mild to moderate aphasia. -: 2=Severe aphasia -: 3=Mute, global aphasia, no usable speech or auditory comprehension. 10. Articulation, Dysarthia: Instruct patient to: -: "Read these words" or "Repeat these words" -: 0=Normal -: 1=Mild to moderate; patient may slur some words but can be understood without difficulty. -: 2=Severe; patients speech so slurred as to be unintelligible in the absence of dysphasia. -: UN=Intubated or other physical barrier, explain in comments. 11. Extinction or inattention: 0=No abnormality -: 1= Visual, tactile, auditory, spatial, or personal inattention or extinction to bilateral simulation in one or the sensory modalities. -: 2=Profound flavio-inattention or flavio-inattention to more than one modality; does not recognize own hand. Total Score: 5 I personally performed the services described in the documentation, reviewed and edited the documentation which was dictated to the scribe in my presence, and it accurately records my words and actions.
[2020-08-03 16:42] LABS: VENOUS BLOOD BASE EXCESS 8.8 mmol/L; VENOUS BLOOD HCO3 38.2 mmol/L (20-32); VENOUS BLOOD PH 7.33 (7.30-7.42)
[2020-08-03 16:43] LABS: VENOUS BLOOD PCO2 73.8 mmHg (35-63)
--- NOTE | 2020-08-03 16:50 | RADIOLOGY REPORT (SQ) ---
EXAM DESCRIPTION: CT HEAD WITHOUT IMAGES COMPLETED DATE/TIME: 08/03/2020 3:14 pm REASON FOR STUDY: altered mental status COMPARISON: 05/08/2020 TECHNIQUE: Axial images acquired through the brain without intravenous contrast. Images reviewed wi th bone, brain and subdural windows. Additional sagittal and coronal reconstructions were generated. Images stored on PACS. All CT scanners at this facility use dose modulation, iterative reconstruction, and/or weight based d osing when appropriate to reduce radiation dose to as low as reasonably achievable (ALARA). [facility]: Dose Right [facility]: CareDose [facility]: Dose Right [facility]: Teradose 4D [facility]: [employer] RADIATION DOSE: CT Rad equipment meets quality standard of care and radiation dose reduction techniq ues were employed. CTDIvol: 53.2 mGy. DLP: 1529 mGy-cm. mGy. LIMITATIONS: There is mild motion despite several attempts. FINDINGS: VENTRICLES: Normal size and contour. CEREBRUM: No masses. No hemorrhage. No midline shift. No evidence for acute infarction. Normal gra y-white matter differentiation. Mild patchy periventricular and deep white matter hypodense attenuat ion consistent with mild chronic small vessel ischemic change. There is intracranial atherosclerosis . CEREBELLUM: No masses. No hemorrhage. No alteration of density. No evidence for acute infarction. EXTRAAXIAL SPACES: No fluid collections. No masses. ORBITS AND GLOBE: No intra- or extraconal masses. Normal contour of globe without masses. CALVARIUM: No fracture. PARANASAL SINUSES: No fluid or mucosal thickening. SOFT TISSUES: No mass or hematoma. OTHER: No other significant finding. IMPRESSION: No acute intracranial hemorrhage, mass, or evidence of acute territorial infarct. Mild chronic small vessel ischemic change and intracranial atherosclerosis. EVIDENCE OF ACUTE STROKE: NO. COMMENT: Quality ID # [id number]: Final reports with documentation of one or more dose reduction techniques (e.g., Automated exposure control, adjustment of the mA and/or kV according to patient size, use of iterative reconstruction technique) TECHNICAL DOCUMENTATION: JOB ID: [id number] 2010 [employer]- All Rights Reserved Reading location - IP/workstation name: [email or web address]
[2020-08-03 17:03] LABS: ABSOLUTE EOSINOPHILS # (AUTO) 0.1 10^3/uL (0.0-0.6); ABSOLUTE LYMPHOCYTES (AUTO) 0.8 10^3/uL (0.5-4.7); ABSOLUTE MONOCYTES (AUTO) 0.6 10^3/uL (0.1-1.4); ABSOLUTE NEUT (AUTO) 4.8 10^3/uL (1.7-8.2); BASOPHILS % (AUTO) 0.5 % (0-2); EOSINOPHILS % (AUTO) 1.1 % (0-6); HEMATOCRIT 37.5 % (36.0-47.0); HEMOGLOBIN 12.8 g/dL (12.0-15.5); LYMPHOCYTES % (AUTO) 13.3 % (13-45); MEAN CORPUSCULAR HGB CONC 34.2 g/dL (32.0-36.0); MEAN CORPUSCULAR VOLUME 94 fl (80-97); MONOCYTES % (AUTO) 9.2 % (3-13); PLATELET COUNT 244 10^3/uL (150-450); RED CELL DISTRIBUTION WIDTH 14.3 % (11.5-14.0); SEGMENTED NEUTROPHILS % (AUTO) 75.9 % (42-78); TOTAL CELLS COUNTED % (AUTO) 100 %; WHITE BLOOD COUNT 6.4 10^3/uL (4.0-10.5)
[2020-08-03 17:08] LABS: INTERNATIONAL RATION (INR) 1.48; PROTHROMBIN TIME 18.1 SEC (11.4-15.4)
[2020-08-03 17:09] LABS: PARTIAL THROMBOPLASTIN TIME 45.6 SEC (23.5-35.8)
[2020-08-03 17:12] LABS: ALBUMIN 3.3 g/dL (3.5-5.0); ALKALINE PHOSPHATASE 83 U/L (38-126); ANION GAP 8 (5-19); ASPARTATE AMINO TRANSFERASE 23 U/L (14-36); BILIRUBIN,DIRECT 0.4 mg/dL (0.0-0.4); BILIRUBIN,TOTAL 0.9 mg/dL (0.2-1.3); BLOOD UREA NITROGEN 23 mg/dL (7-20); CARBON DIOXIDE 38 mmol/L (22-30); CHLORIDE 90 mmol/L (98-107); GLUCOSE 87 mg/dL (75-110); POTASSIUM 3.4 mmol/L (3.6-5.0); TOTAL PROTEIN 6.5 g/dL (6.3-8.2)
[2020-08-03 17:19] LABS: CREATINE KINASE < 20 U/L (30-135)
[2020-08-03 17:24] LABS: TROPONIN I 0.013 ng/mL
--- NOTE | 2020-08-03 21:04 | EKG REPORT ---
SEVERITY:- ABNORMAL ECG - ATRIAL FIBRILLATION PAIRED VENTRICULAR PREMATURE COMPLEXES LEFT BUNDLE BRANCH BLOCK : Confirmed by: Hitesh Singh MD 03-Aug-2020 21:04:30
--- NOTE | 2020-08-03 22:38 | PDOC H&P ---
History of Present Illness Admission Date/PCP: 08/03/20 18:04 NIKKI MCCULLOUGH MD Patient complains of: Change in responsiveness History of Present Illness: GIUSEPPE RINCON is a 85 year old female patient of Dr Mccullough who presented to the ED via EMS with daughter reporting change in mental status. She reported that patient has been less responsive and incomprehensible in her verbal communication. She reported noncompliance with use of Trilogy at home due to patient frequently removing her face mask. Daughter reported symptoms onset about a day prior to presentation with associated foul odor to her urine. She denied any associated fever or chills, coughing, nausea, vomiting, or diarrhea. Her initial ED evaluation was significant for carbon dioxide retention. She was advised hospitalization for acute on chronic respiratory failure. Her morbidities are listed below. Past Medical History Cardiac Medical History: Reports: Atrial Fibrillation, Hyperlipidema, Hypertension Denies: Myocardial Infarction Pulmonary Medical History: Reports: Asthma, Chronic Obstructive Pulmonary Disease (COPD), Sleep Apnea - doesn't use cpap Neurological Medical History: Denies: Seizures Endocrine Medical History: Reports: Hypothyroidism GI Medical History: Reports: Gastroesophageal Reflux Disease, Hiatal Hernia Musculoskeltal Medical History: Reports: Arthritis Psychiatric Medical History: Reports: Dementia, Depression Traumatic Medical History: Denies: Gunshot Wound, Pneumothorax Hematology: Denies: Anemia, Sickle Cell Disease Infectious Medical History: Denies: Clostridium Difficile Past Surgical History Past Surgical History: Reports: Appendectomy, Orthopedic Surgery - bilat knee, Tonsillectomy, Tubal Ligation Denies: Hysterectomy Social History Lives with: Family Smoking Status: Unknown if Ever Smoked Frequency of Alcohol Use: None Hx Recreational Drug Use: No Drugs: None Hx Prescription Drug Abuse: No Family History Family History: Reviewed & Not Pertinent Parental Family History Reviewed: Yes Children Family History Reviewed: Yes Sibling(s) Family History Reviewed.: Yes Medication/Allergy Home Medications: Atorvastatin Calcium [Lipitor 40 mg Tablet] 40 mg PO QHS 12/03/17 Sertraline HCl [Zoloft] 50 mg PO DAILY 12/03/17 Metoprolol Succinate [Toprol Xl 50 mg Tab.sr] 200 mg PO DAILY 03/22/19 Nitrofurantoin Macrocrystal [Macrodantin] 100 mg PO DAILY 03/22/19 Omeprazole 40 mg PO DAILY 03/22/19 Tramadol HCl [Ultram 50 mg Tablet] 50 mg PO Q6HP PRN #120 tablet 03/25/19 Alprazolam 1 mg PO DAILY 03/21/20 Levothyroxine Sodium [Levoxyl] 112 mcg PO DAILY 03/21/20 Losartan Potassium 50 mg PO DAILY 03/21/20 Memantine HCl/Donepezil HCl [Namzaric 28 mg-10 mg Capsule] 1 cap PO QHS 03/21/20 Apixaban [Eliquis 5 mg Tablet] 5 mg PO BID #60 tablet 05/16/20 Allergies/Adverse Reactions: meperidine HCl [From Demerol] Allergy (Severe, Verified 03/21/20 03:24) Review of Systems ROS unobtainable: Due to mental status Physical Exam Vital Signs: Temp Pulse Resp BP Pulse Ox 97.9 F 60 12 100/68 100 08/03/20 21:07 08/03/20 21:07 08/03/20 21:07 08/03/20 21:07 08/03/20 21:07 Intake & Output 08/02/20 08/03/20 08/04/20 06:59 06:59 06:59 Intake Total 250 Balance 250 Weight 96.6 kg General appearance: PRESENT: mild distress - on BiPAP support, obese Eye exam: PRESENT: conjunctiva pink Respiratory exam: PRESENT: clear to auscultation mary, decreased breath sounds - at lung bases Cardiovascular exam: PRESENT: RRR, +S1, +S2. ABSENT: diastolic murmur, rubs, systolic murmur Vascular exam: ABSENT: pallor GI/Abdominal exam: PRESENT: normal bowel sounds, soft. ABSENT: distended, guarding, mass, organolmegaly, rebound, tenderness Extremities exam: ABSENT: pedal edema Neurological exam: PRESENT: altered Skin exam: PRESENT: dry, warm Results Laboratory Results: 08/03/20 16:20 08/03/20 16:20 08/03/20 08/03/20 08/03/20 15:43 16:20 16:20 WBC 6.4 RBC 4.00 Hgb 12.8 Hct 37.5 MCV 94 MCH 32.0 MCHC 34.2 RDW 14.3 H Plt Count 244 Seg Neutrophils % 75.9 VBG pH VBG pCO2 VBG HCO3 VBG Base Excess Sodium 135.9 L Potassium 3.4 L Chloride 90 L Carbon Dioxide 38 H Anion Gap 8 BUN 23 H Creatinine 0.59 Est GFR ( Amer) > 60 Glucose 87 Lactic Acid Calcium 9.0 Total Bilirubin 0.9 AST 23 Alkaline Phosphatase 83 Ammonia Total Protein 6.5 Albumin 3.3 L Lipase 22.0 L TSH Urine Color YELLOW Urine Appearance CLEAR Urine pH 6.0 Ur Specific [place] 1.011 Urine Protein NEGATIVE Urine Glucose (UA) NEGATIVE Urine Ketones TRACE H Urine Blood NEGATIVE Urine Nitrite NEGATIVE Ur Leukocyte Esterase NEGATIVE Urine WBC (Auto) 8 Urine RBC (Auto) 1 08/03/20 08/03/20 08/03/20 16:20 16:20 16:20 WBC RBC Hgb Hct MCV MCH MCHC RDW Plt Count Seg Neutrophils % VBG pH 7.33 VBG pCO2 73.8 H* VBG HCO3 38.2 H VBG Base Excess 8.8 Sodium Potassium Chloride Carbon Dioxide Anion Gap BUN Creatinine Est GFR ( Amer) Glucose Lactic Acid 1.2 Calcium Total Bilirubin AST Alkaline Phosphatase Ammonia Total Protein Albumin Lipase TSH 3.34 Urine Color Urine Appearance Urine pH Ur Specific [place] Urine Protein Urine Glucose (UA) Urine Ketones Urine Blood Urine Nitrite Ur Leukocyte Esterase Urine WBC (Auto) Urine RBC (Auto) 08/03/20 18:50 WBC RBC Hgb Hct MCV MCH MCHC RDW Plt Count Seg Neutrophils % VBG pH VBG pCO2 VBG HCO3 VBG Base Excess Sodium Potassium Chloride Carbon Dioxide Anion Gap BUN Creatinine Est GFR ( Amer) Glucose Lactic Acid Calcium Total Bilirubin AST Alkaline Phosphatase Ammonia < 8.7 L Total Protein Albumin Lipase TSH Urine Color Urine Appearance Urine pH Ur Specific [place] Urine Protein Urine Glucose (UA) Urine Ketones Urine Blood Urine Nitrite Ur Leukocyte Esterase Urine WBC (Auto) Urine RBC (Auto) 08/03/20 08/03/20 16:20 16:20 Creatine Kinase < 20 L Troponin I 0.013 NT-Pro-B Natriuret Pep 4970 H Impressions: Chest X-Ray 08/03/20 15:05 IMPRESSION: Small right pleural effusion with compressive atelectasis/consolidation at the right lung base. Head CT 08/03/20 15:08 IMPRESSION: No acute intracranial hemorrhage, mass, or evidence of acute territorial infarct. Mild chronic small vessel ischemic change and intracranial atherosclerosis. EVIDENCE OF ACUTE STROKE: NO. Assessment & Plan - Diagnosis (1) Acute on chronic respiratory failure with hypercapnia Is this a current diagnosis for this admission?: Yes Plan: See covering admitting attending physician orders for details about care plan. (2) Chronic obstructive pulmonary disease (COPD) Qualifiers: COPD type: unspecified COPD Is this a current diagnosis for this admission?: Yes Plan: See covering admitting attending physician orders for details about care plan. (3) Obstructive sleep apnea Is this a current diagnosis for this admission?: Yes Plan: See covering admitting attending physician orders for details about care plan. (4) Chronic atrial fibrillation Is this a current diagnosis for this admission?: Yes Plan: See covering admitting attending physician orders for details about care plan. (5) Essential hypertension Is this a current diagnosis for this admission?: Yes Plan: See covering admitting attending physician orders for details about care plan. (6) HLD (hyperlipidemia) Qualifiers: Hyperlipidemia type: unspecified Qualified Code(s): E78.5 - Hyperlipidemia, unspecified Is this a current diagnosis for this admission?: Yes Plan: See covering admitting attending physician orders for details about care plan. (7) Hypothyroidism Qualifiers: Hypothyroidism type: acquired Qualified Code(s): E03.9 - Hypothyroidism, unspecified Is this a current diagnosis for this admission?: Yes Plan: See covering admitting attending physician orders for details about care plan. (8) GERD (gastroesophageal reflux disease) Qualifiers: Esophagitis presence: esophagitis presence not specified Qualified Code(s): K21.9 - Gastro-esophageal reflux disease without esophagitis Is this a current diagnosis for this admission?: Yes Plan: See covering admitting attending physician orders for details about care plan. (9) Senile dementia Qualifiers: Dementia behavioral disturbance: with behavioral disturbance Qualified Code(s): F03.91 - Unspecified dementia with behavioral disturbance Is this a current diagnosis for this admission?: Yes Plan: See covering admitting attending physician orders for details about care plan. (10) Depression Qualifiers: Depression Type: unspecified Qualified Code(s): F32.9 - Major depressive disorder, single episode, unspecified Is this a current diagnosis for this admission?: Yes Plan: See covering admitting attending physician orders for details about care plan. (11) Osteoarthritis involving multiple joints on both sides of body Is this a current diagnosis for this admission?: Yes Plan: See covering admitting attending physician orders for details about care plan. - Time Time Spent: 50 to 70 Minutes Medications reviewed and adjusted accordingly: Yes Anticipated Discharge Disposition: Longterm Facility Anticipated Discharge Timeframe: within 72 hours - Inpatient Certification Based on my medical assessment, after consideration of the patient's comorbidities, presenting symptoms, or acuity I expect that the services needed warrant INPATIENT care.: Yes I certify that my determination is in accordance with my understanding of [facility]'s requirements for reasonable and necessary INPATIENT services [42 CFR 412.3e].: Yes Medical Necessity: Significant Comorbidiites Make Outpatient Treatment Too Risky, Need Close Monitoring Due to Risk of Patient Decompensation, Need For Continuous Telemetry Monitoring, Risk of Complication if Not Cared For in Hospital, Risk of Diagnosis Which Will Require Inpatient Eval/Care/Monitoring Post Hospital Care: D/C or Transfer Summary - Plan Summary Plan Summary: See covering admitting attending physician orders for details about care plan.
[2020-08-03] MEDS ORDERED: DEXTROSE 40% GEL 15 GM TUBE PO PRN ×2 (23:02)
[2020-08-03] MEDS ORDERED: GLUCAGON,HUMAN RECOMB 1 MG INJ SUBCUT PRN (23:02)
[2020-08-03] MEDS ORDERED: DEXTROSE 50%-WATER 25 GM/50 ML DISP.SYRIN IV PRN (23:02)
[2020-08-03] MEDS: DEXTROSE 50%-WATER 25 GM/50 ML DISP.SYRIN IV PRN (23:35)
[2020-08-03] MEDS: DEXTROSE 5%-NORMAL SALINE 1,000 ML IV PRN (23:36)
[2020-08-03] MEDS: PANTOPRAZOLE SODIUM 40 MG VIAL IV SCH (23:42)
[2020-08-04 04:32] LABS: ABSOLUTE EOSINOPHILS # (AUTO) 0.1 10^3/uL (0.0-0.6); ABSOLUTE LYMPHOCYTES (AUTO) 0.7 10^3/uL (0.5-4.7); ABSOLUTE MONOCYTES (AUTO) 0.6 10^3/uL (0.1-1.4); ABSOLUTE NEUT (AUTO) 3.2 10^3/uL (1.7-8.2); BASOPHILS % (AUTO) 0.7 % (0-2); EOSINOPHILS % (AUTO) 2.8 % (0-6); HEMATOCRIT 33.4 % (36.0-47.0); HEMOGLOBIN 11.3 g/dL (12.0-15.5); LYMPHOCYTES % (AUTO) 15.7 % (13-45); MEAN CORPUSCULAR HEMOGLOBIN 31.6 pg (27.0-33.4); MEAN CORPUSCULAR HGB CONC 33.8 g/dL (32.0-36.0); MEAN CORPUSCULAR VOLUME 94 fl (80-97); MONOCYTES % (AUTO) 12.2 % (3-13); PLATELET COUNT 196 10^3/uL (150-450); RED BLOOD COUNT 3.57 10^6/uL (3.72-5.28); RED CELL DISTRIBUTION WIDTH 14.3 % (11.5-14.0); SEGMENTED NEUTROPHILS % (AUTO) 68.6 % (42-78); TOTAL CELLS COUNTED % (AUTO) 100 %; WHITE BLOOD COUNT 4.7 10^3/uL (4.0-10.5)
[2020-08-04 05:04] LABS: ALBUMIN 2.5 g/dL (3.5-5.0); ALKALINE PHOSPHATASE 58 U/L (38-126); ASPARTATE AMINO TRANSFERASE 18 U/L (14-36); BILIRUBIN,DIRECT 0.3 mg/dL (0.0-0.4); BILIRUBIN,TOTAL 0.7 mg/dL (0.2-1.3); BLOOD UREA NITROGEN 23 mg/dL (7-20); CALCIUM 8.2 mg/dL (8.4-10.2); CHLORIDE 93 mmol/L (98-107); GLUCOSE 105 mg/dL (75-110); POTASSIUM 3.3 mmol/L (3.6-5.0); TOTAL PROTEIN 5.2 g/dL (6.3-8.2)
[2020-08-04 05:09] LABS: CARBON DIOXIDE 38 mmol/L (22-30)
[2020-08-04 05:20] LABS: ANION GAP 4 (5-19)
[2020-08-04 06:20] LABS: ARTERIAL BLOOD BASE EXCESS 8.5 mmol/L; ARTERIAL BLOOD H2CO3 1.42 mmol/L (1.05-1.35); ARTERIAL BLOOD HCO3 33.3 mmol/L (20-24); ARTERIAL BLOOD O2 SATURATION 95.6 % (94-98); ARTERIAL BLOOD PCO2 47.2 mmHg (35-45); ARTERIAL BLOOD PH 7.47 (7.35-7.45); ARTERIAL BLOOD PO2 74.3 mmHg (80-100); ARTERIAL BLOOD TOTAL CO2 34.8 mmol/L (21-25)
[2020-08-04 06:22] LABS: ARTERIAL BLOOD FIO2 28%
[2020-08-04] MEDS: DEXTROSE 50%-WATER 25 GM/50 ML DISP.SYRIN IV PRN ×2 (07:02→11:07)
[2020-08-04] MEDS ORDERED: ENOXAPARIN SODIUM INJ 40 MG/0.4 ML DISP.SYRIN SUBCUT SCH (10:00)
[2020-08-04] MEDS: DEXTROSE 5%-NORMAL SALINE 1,000 ML IV PRN ×2 (11:07→22:01)
[2020-08-04] MEDS: PANTOPRAZOLE SODIUM 40 MG VIAL IV SCH ×2 (11:08→21:54)
--- NOTE | 2020-08-04 13:25 | PDOC PROGRESS REPORT ---
Subjective Progress Note for:: 08/04/20 Subjective:: Patient is awake and verbally communicating. [id number] on BiPAP support overnight to present time of my bedside visit. She denied any chest pain. No nausea or vomiting. Asking for sip of water. She remain NPO due to AMS. Episode of hypoglycemia was corrected with D50W infusion earlier his morning per protocol. Reason For Visit: ACUTE ON CHRONIC RESPIRATORY FAILURE WITH Physical Exam Vital Signs: Temp Pulse Resp BP Pulse Ox 97.8 F 64 21 H 129/82 H 91 L 08/04/20 10:47 08/04/20 10:47 08/04/20 11:53 08/04/20 10:47 08/04/20 10:47 Intake & Output 08/03/20 08/04/20 08/05/20 06:59 06:59 06:59 Intake Total 250 1000 Balance 250 1000 Weight 101.3 kg General appearance: PRESENT: no acute distress Head exam: PRESENT: atraumatic, normocephalic Eye exam: PRESENT: conjunctiva pink. ABSENT: scleral icterus Respiratory exam: PRESENT: clear to auscultation mary, decreased breath sounds Cardiovascular exam: PRESENT: RRR, +S1, +S2. ABSENT: diastolic murmur, rubs, systolic murmur Vascular exam: ABSENT: pallor GI/Abdominal exam: PRESENT: normal bowel sounds, soft. ABSENT: tenderness Extremities exam: ABSENT: pedal edema Neurological exam: PRESENT: alert, awake Skin exam: PRESENT: dry, warm Results Laboratory Results: 08/04/20 03:55 08/04/20 03:55 08/03/20 08/03/20 08/03/20 15:43 16:20 16:20 WBC 6.4 RBC 4.00 Hgb 12.8 Hct 37.5 MCV 94 MCH 32.0 MCHC 34.2 RDW 14.3 H Plt Count 244 Seg Neutrophils % 75.9 Carbonic Acid HCO3/H2CO3 Ratio ABG pH ABG pCO2 ABG pO2 ABG HCO3 ABG O2 Saturation ABG Base Excess VBG pH VBG pCO2 VBG HCO3 VBG Base Excess FiO2 Sodium 135.9 L Potassium 3.4 L Chloride 90 L Carbon Dioxide 38 H Anion Gap 8 BUN 23 H Creatinine 0.59 Est GFR ( Amer) > 60 Glucose 87 Lactic Acid Calcium 9.0 Total Bilirubin 0.9 AST 23 Alkaline Phosphatase 83 Ammonia Total Protein 6.5 Albumin 3.3 L Lipase 22.0 L TSH Urine Color YELLOW Urine Appearance CLEAR Urine pH 6.0 Ur Specific [place] 1.011 Urine Protein NEGATIVE Urine Glucose (UA) NEGATIVE Urine Ketones TRACE H Urine Blood NEGATIVE Urine Nitrite NEGATIVE Ur Leukocyte Esterase NEGATIVE Urine WBC (Auto) 8 Urine RBC (Auto) 1 08/03/20 08/03/20 08/03/20 16:20 16:20 16:20 WBC RBC Hgb Hct MCV MCH MCHC RDW Plt Count Seg Neutrophils % Carbonic Acid HCO3/H2CO3 Ratio ABG pH ABG pCO2 ABG pO2 ABG HCO3 ABG O2 Saturation ABG Base Excess VBG pH 7.33 VBG pCO2 73.8 H* VBG HCO3 38.2 H VBG Base Excess 8.8 FiO2 Sodium Potassium Chloride Carbon Dioxide Anion Gap BUN Creatinine Est GFR ( Amer) Glucose Lactic Acid 1.2 Calcium Total Bilirubin AST Alkaline Phosphatase Ammonia Total Protein Albumin Lipase TSH 3.34 Urine Color Urine Appearance Urine pH Ur Specific [place] Urine Protein Urine Glucose (UA) Urine Ketones Urine Blood Urine Nitrite Ur Leukocyte Esterase Urine WBC (Auto) Urine RBC (Auto) 08/03/20 08/04/20 08/04/20 18:50 03:55 03:55 WBC 4.7 RBC 3.57 L Hgb 11.3 L Hct 33.4 L MCV 94 MCH 31.6 MCHC 33.8 RDW 14.3 H Plt Count 196 Seg Neutrophils % 68.6 Carbonic Acid HCO3/H2CO3 Ratio ABG pH ABG pCO2 ABG pO2 ABG HCO3 ABG O2 Saturation ABG Base Excess VBG pH VBG pCO2 VBG HCO3 VBG Base Excess FiO2 Sodium 135.2 L Potassium 3.3 L Chloride 93 L Carbon Dioxide 38 H Anion Gap 4 L BUN 23 H Creatinine 0.62 Est GFR ( Amer) > 60 Glucose 105 Lactic Acid Calcium 8.2 L Total Bilirubin 0.7 AST 18 Alkaline Phosphatase 58 Ammonia < 8.7 L Total Protein 5.2 L Albumin 2.5 L Lipase TSH Urine Color Urine Appearance Urine pH Ur Specific [place] Urine Protein Urine Glucose (UA) Urine Ketones Urine Blood Urine Nitrite Ur Leukocyte Esterase Urine WBC (Auto) Urine RBC (Auto) 08/04/20 06:00 WBC RBC Hgb Hct MCV MCH MCHC RDW Plt Count Seg Neutrophils % Carbonic Acid 1.42 H HCO3/H2CO3 Ratio 23:1 ABG pH 7.47 H ABG pCO2 47.2 H ABG pO2 74.3 L ABG HCO3 33.3 H ABG O2 Saturation 95.6 ABG Base Excess 8.5 VBG pH VBG pCO2 VBG HCO3 VBG Base Excess FiO2 28% Sodium Potassium Chloride Carbon Dioxide Anion Gap BUN Creatinine Est GFR ( Amer) Glucose Lactic Acid Calcium Total Bilirubin AST Alkaline Phosphatase Ammonia Total Protein Albumin Lipase TSH Urine Color Urine Appearance Urine pH Ur Specific [place] Urine Protein Urine Glucose (UA) Urine Ketones Urine Blood Urine Nitrite Ur Leukocyte Esterase Urine WBC (Auto) Urine RBC (Auto) 08/03/20 08/03/20 16:20 16:20 Creatine Kinase < 20 L Troponin I 0.013 NT-Pro-B Natriuret Pep 4970 H Impressions: Chest X-Ray 08/03/20 15:05 IMPRESSION: Small right pleural effusion with compressive atelectasis/consolidation at the right lung base. Head CT 08/03/20 15:08 IMPRESSION: No acute intracranial hemorrhage, mass, or evidence of acute territorial infarct. Mild chronic small vessel ischemic change and intracranial atherosclerosis. EVIDENCE OF ACUTE STROKE: NO. Assessment & Plan - Diagnosis (1) Acute on chronic respiratory failure with hypercapnia Is this a current diagnosis for this admission?: Yes (2) Chronic obstructive pulmonary disease (COPD) Qualifiers: COPD type: unspecified COPD Is this a current diagnosis for this admission?: Yes (3) Obstructive sleep apnea Is this a current diagnosis for this admission?: Yes (4) Chronic atrial fibrillation Is this a current diagnosis for this admission?: Yes (5) Essential hypertension Is this a current diagnosis for this admission?: Yes (6) HLD (hyperlipidemia) Qualifiers: Hyperlipidemia type: unspecified Qualified Code(s): E78.5 - Hyperlipidemia, unspecified Is this a current diagnosis for this admission?: Yes (7) Hypothyroidism Qualifiers: Hypothyroidism type: acquired Qualified Code(s): E03.9 - Hypothyroidism, unspecified Is this a current diagnosis for this admission?: Yes (8) GERD (gastroesophageal reflux disease) Qualifiers: Esophagitis presence: esophagitis presence not specified Qualified Code(s): K21.9 - Gastro-esophageal reflux disease without esophagitis Is this a current diagnosis for this admission?: Yes (9) Senile dementia Qualifiers: Dementia behavioral disturbance: with behavioral disturbance Qualified C ode(s): F03.91 - Unspecified dementia with behavioral disturbance Is this a current diagnosis for this admission?: Yes (10) Depression Qualifiers: Depression Type: unspecified Qualified Code(s): F32.9 - Major depressive disorder, single episode, unspecified Is this a current diagnosis for this admission?: Yes (11) Osteoarthritis involving multiple joints on both sides of body Is this a current diagnosis for this admission?: Yes - Time Time Spent with patient: 25-34 minutes Level of Care: MEDICAL Medications reviewed and adjusted accordingly: Yes Anticipated discharge: SNF Anticipated DC Timeframe: within 72 hours - Inpatient Certification Based on my medical assessment, after consideration of the patient's comorbidities, presenting symptoms, or acuity I expect that the services needed warrant INPATIENT care.: Yes I certify that my determination is in accordance with my understanding of Medicare's requirements for reasonable and necessary INPATIENT services [42 CFR 412.3e].: Yes Medical Necessity: Significant Comorbidiites Make Outpatient Treatment Too Risky, Need Close Monitoring Due to Risk of Patient Decompensation, Need For Continuous Telemetry Monitoring, Risk of Complication if Not Cared For in Hospital, Risk of Diagnosis Which Will Require Inpatient Eval/Care/Monitoring Post Hospital Care: D/C [employer] Documentation - Plan Summary Plan Summary: Resume oral feeding with puree diet. Allowed off the BiPAP for feeding and use whenever she is sleeping. Maintain on current medication management with adjustment in sedative medications.
[2020-08-04] MEDS: APIXABAN 5 MG TABLET PO SCH (21:55)
[2020-08-04] MEDS ORDERED: (PENDING PHARMACY ID) (Memantine Hcl/Donepezil Hcl [Namzaric 28 Mg-10 Mg Capsule] 1 CAP) PO SCH ×2 (22:00)
[2020-08-04] MEDS: METOPROLOL SUCCINATE 50 MG TAB.SR.24H PO SCH (23:57)
[2020-08-04] MEDS: ATORVASTATIN CALCIUM 40 MG TABLET PO SCH (23:58)
[2020-08-05] MEDS: TRAMADOL HCL 50 MG TABLET PO PRN ×2 (04:20→13:12)
[2020-08-05] MEDS: LEVOTHYROXINE SODIUM 0.112 MG TABLET PO SCH (05:42)
[2020-08-05] MEDS: DEXTROSE 5%-NORMAL SALINE 1,000 ML IV PRN (09:03)
[2020-08-05] MEDS: SERTRALINE HCL 50 MG TABLET PO SCH (09:06)
[2020-08-05] MEDS: APIXABAN 5 MG TABLET PO SCH ×2 (09:06→21:13)
[2020-08-05] MEDS: LOSARTAN POTASSIUM 50 MG TABLET PO SCH (09:06)
[2020-08-05] MEDS: PANTOPRAZOLE SODIUM 40 MG VIAL IV SCH ×2 (09:07→21:13)
[2020-08-05] MEDS ORDERED: (PENDING PHARMACY ID) (Sertraline Hcl [Zoloft] 50 MG) PO SCH (10:00)
[2020-08-05] MEDS ORDERED: (PENDING PHARMACY ID) (Nitrofurantoin Macrocrystal [Macrodantin] 100 MG) PO SCH ×2 (10:00)
[2020-08-05 18:18] LABS: ARTERIAL BLOOD FIO2 1; ARTERIAL BLOOD H2CO3 1.36 mmol/L (1.05-1.35); ARTERIAL BLOOD HCO3 28.1 mmol/L (20-24); ARTERIAL BLOOD O2 SATURATION 95.3 % (94-98); ARTERIAL BLOOD PCO2 45.1 mmHg (35-45); ARTERIAL BLOOD PH 7.41 (7.35-7.45); ARTERIAL BLOOD PO2 76.3 mmHg (80-100); ARTERIAL BLOOD TOTAL CO2 29.5 mmol/L (21-25)
--- NOTE | 2020-08-05 20:58 | PDOC PROGRESS REPORT ---
Subjective Progress Note for:: 08/05/20 Subjective:: Patient was admitted over the weekend for evaluation of altered mental status, she was seen today by the bedside the arterial blood gas on FiO2 of 1 L, pH is 7.4, PO2 76.3, PCO2 45.1, bicarbonate 28.1. She is alert she is oriented she was able to engage in conversation. She has a history of morbid obesity hypoventilation syndrome, she tends to retain CO2 with subsequent CO2 narcosis she has noninvasive positive pressure device at home, I am not sure of complian ce with the device at home Reason For Visit: ACUTE ON CHRONIC RESPIRATORY FAILURE WITH Physical Exam Vital Signs: Temp Pulse Resp BP Pulse Ox 98.0 F 85 16 93/65 L 94 08/05/20 19:46 08/05/20 19:46 08/05/20 19:46 08/05/20 19:46 08/05/20 19:46 Intake & Output 08/04/20 08/05/20 08/06/20 06:59 06:59 06:59 Intake Total 250 3040 1000 Output Total 2 Balance 250 3040 998 Weight 101.3 kg 101.3 kg 101.3 kg General appearance: PRESENT: no acute distress Eye exam: PRESENT: PERRLA Respiratory exam: PRESENT: clear to auscultation mary Cardiovascular exam: PRESENT: +S1, +S2 GI/Abdominal exam: PRESENT: soft Neurological exam: PRESENT: alert Results Laboratory Results: 08/04/20 03:55 08/04/20 03:55 08/05/20 17:45 Carbonic Acid 1.36 H HCO3/H2CO3 Ratio 20:1 ABG pH 7.41 ABG pCO2 45.1 H ABG pO2 76.3 L ABG HCO3 28.1 H ABG O2 Saturation 95.3 ABG Base Excess 3.0 FiO2 1 08/03/20 16:20 Blood Blood Culture (PCR) - Final Staphylococcus Species 08/03/20 16:40 Throat Throat Culture - Final NORMAL RUSS 08/03/20 08/03/20 16:20 16:20 Creatine Kinase < 20 L Troponin I 0.013 NT-Pro-B Natriuret Pep 4970 H Impressions: Chest X-Ray 08/03/20 15:05 IMPRESSION: Small right pleural effusion with compressive atelectas is/consolidation at the right lung base. Head CT 08/03/20 15:08 IMPRESSION: No acute intracranial hemorrhage, mass, or evidence of acute territorial infarct. Mild chronic small vessel ischemic change and intracranial atherosclerosis. EVIDENCE OF ACUTE STROKE: NO. Assessment & Plan - Diagnosis (1) Acute and chronic respiratory failure with hypercapnia Is this a current diagnosis for this admission?: Yes Plan: Continue present treatment (2) Morbid (severe) obesity with alveolar hypoventilation Is this a current diagnosis for this admission?: Yes (3) Permanent atrial fibrillation Is this a current diagnosis for this admission?: Yes Plan: Continue anticoagulation - Time Time Spent with patient: 25-34 minutes Level of Care: IMCU Medications reviewed and adjusted accordingly: Yes Anticipated discharge: Home - Inpatient Certification Based on my medical assessment, after consideration of the patient's comorbidities, presenting symptoms, or acuity I expect that the services needed warrant INPATIENT care.: Yes I certify that my determination is in accordance with my understanding of Medicare's requirements for reasonable and necessary INPATIENT services [42 CFR 412.3e].: Yes
[2020-08-05] MEDS: ATORVASTATIN CALCIUM 40 MG TABLET PO SCH (23:38)
[2020-08-05] MEDS: METOPROLOL SUCCINATE 50 MG TAB.SR.24H PO SCH (23:38)
[2020-08-06] MEDS: LEVOTHYROXINE SODIUM 0.112 MG TABLET PO SCH (05:34)
[2020-08-06] MEDS: DEXTROSE 5%-NORMAL SALINE 1,000 ML IV PRN (05:40)
[2020-08-06] MEDS ORDERED: INFLUENZA QUAD (6MOS+) 2020-21 VAC 0.5 ML SYR IM ONE (08:00)
[2020-08-06] MEDS: SERTRALINE HCL 50 MG TABLET PO SCH (09:42)
[2020-08-06] MEDS: PANTOPRAZOLE SODIUM 40 MG VIAL IV SCH ×2 (09:42→21:54)
[2020-08-06] MEDS: APIXABAN 5 MG TABLET PO SCH ×2 (09:42→21:54)
[2020-08-06] MEDS: LOSARTAN POTASSIUM 50 MG TABLET PO SCH (09:42)
[2020-08-06] MEDS: TRAMADOL HCL 50 MG TABLET PO PRN (09:46)
--- NOTE | 2020-08-06 20:38 | PDOC PROGRESS REPORT ---
Subjective Progress Note for:: 08/06/20 Subjective:: Patient seen by the bedside she is feeling much better, she be discharge home tomorrow Reason For Visit: ACUTE ON CHRONIC RESPIRATORY FAILURE WITH Physical Exam Vital Signs: Temp Pulse Resp BP Pulse Ox 98.1 F 56 L 17 124/72 95 08/06/20 19:54 08/06/20 19:54 08/06/20 19:54 08/06/20 19:54 08/06/20 19:54 Intake & Output 08/05/20 08/06/20 08/07/20 06:59 06:59 06:59 Intake Total 3040 2260 970 Output Total 2 Balance 3040 2258 970 Weight 101.3 kg 99.5 kg 99.5 kg General appearance: PRESENT: no acute distress Eye exam: PRESENT: PERRLA Respiratory exam: PRESENT: clear to auscultation mary Cardiovascular exam: PRESENT: +S1, +S2 GI/Abdominal exam: PRESENT: soft Neurological exam: PRESENT: alert Results Laboratory Results: 08/04/20 03:55 08/04/20 03:55 08/03/20 16:20 Blood Blood Culture (PCR) - Final Staphylococcus Species 08/03/20 16:20 Blood Blood Culture - Final Staphylococcus Hominis 08/03/20 08/03/20 16:20 16:20 Creatine Kinase < 20 L Troponin I 0.013 NT-Pro-B Natriuret Pep 4970 H Impressions: Chest X-Ray 08/03/20 15:05 IMPRESSION: Small right pleural effusion with compressive atelectasis/consolidation at the right lung base. Head CT 08/03/20 15:08 IMPRESSION: No acute intracranial hemorrhage, mass, or evidence of acute territorial infarct. Mild chronic small vessel ischemic change and intracranial atherosclerosis. EVIDENCE OF ACUTE STROKE: NO. Assessment & Plan - Diagnosis (1) Acute and chronic respiratory failure with hypercapnia Is this a current diagnosis for this admission?: Yes Plan: Continue present treatment (2) Morbid (severe) obesity with alveolar hypoventilation Is this a current diagnosis for this admission?: Yes (3) Permanent atrial fibrillation Is this a current diagnosis for this admission?: Yes - Time Time Spent with patient: 25-34 minutes Level of Care: MEDICAL Medications reviewed and adjusted accordingly: Yes Anticipated discharge: Home Anticipated DC Timeframe: within 24 hours
--- NOTE | 2020-08-06 20:46 | PDOC DISCHARGE SUMMARY ---
Impression - Admit/DC Date/PCP Admission Date/Primary Care Provider: 08/03/20 18:04 NIKKI MCCULLOUGH MD Discharge Date: 08/07/20 - Discharge Diagnosis (1) Acute and chronic respiratory failure with hypercapnia Is this a current diagnosis for this admission?: Yes (2) Morbid (severe) obesity with alveolar hypoventilation Is this a current diagnosis for this admission?: Yes (3) Permanent atrial fibrillation Is this a current diagnosis for this admission?: Yes - Additional Information Referrals: NIKKI MCCULLOUGH MD [Primary Care Provider] - 08/15/20 2:00 pm Home Medications: Atorvastatin Calcium [Lipitor 40 mg Tablet] 40 mg PO QHS 12/03/17 Sertraline HCl [Zoloft] 50 mg PO DAILY 12/03/17 Metoprolol Succinate [Toprol Xl 50 mg Tab.sr] 200 mg PO QHS 03/22/19 Nitrofurantoin Macrocrystal [Macrodantin] 100 mg PO DAILY 03/22/19 Tramadol HCl [Ultram 50 mg Tablet] 50 mg PO Q6HP PRN #120 tablet 03/25/19 Alprazolam 0.5 mg PO DAILYP PRN 03/21/20 Levothyroxine Sodium [Levoxyl] 112 mcg PO Q6AM 03/21/20 Losartan Potassium 50 mg PO DAILY 03/21/20 Memantine HCl/Donepezil HCl [Namzaric 28 mg-10 mg Capsule] 1 cap PO QHS 03/21/20 Apixaban [Eliquis 5 mg Tablet] 5 mg PO Q12 08/04/20 Tramadol HCl [Ultram 50 mg Tablet] 50 mg PO Q8HP PRN tablet 08/06/20 History of Present Illiness History of Present Illness: GIUSEPPE RINCON is a 85 year old female patient,she presented to the ED via EMS with daughter reporting change in mental status. She reported that patient has been less responsive and incomprehensible in her verbal communication. She reported noncompliance with use of Trilogy at home due to patient frequently removing her face mask. Daughter reported symptoms onset about a day prior to presentation with associated foul odor to her urine. She denied any associated fever or chills, coughing, nausea, vomiting, or diarrhea. Her initial ED evaluation was significant for carbon dioxide retention. She was advised hospitalization for acute on chronic respiratory failure.. Hospital Course Hospital Course: Patient was admitted for the management of acute hypercapnic respiratory failure, she has a history of chronic respiratory failure she is dependent on noninvasive positive pressure ventilation Trilogy at home, she is not quite compliant with the device at home she was treated with noninvasive positive pressure ventilation BiPAP in hospital with good result.There was no demonstrable infection on this admission the Staphylococcus bacteremia is most likely contaminant it was coagulase-negative Staphylococcus hominis, just in 1 bottle Physical Exam Vital Signs: Temp Pulse Resp BP Pulse Ox 98.1 F 56 L 17 124/72 95 08/06/20 19:54 08/06/20 19:54 08/06/20 19:54 08/06/20 19:54 08/06/20 19:54 Intake & Output 08/05/20 08/06/20 08/07/20 06:59 06:59 06:59 Intake Total 3040 2260 970 Output Total 2 Balance 3040 2258 970 Weight 101.3 kg 99.5 kg 99.5 kg General appearance: PRESENT: no acute distress Eye exam: PRESENT: PERRLA Respiratory exam: PRESENT: clear to auscultation mary Cardiovascular exam: PRESENT: +S1, +S2 GI/Abdominal exam: PRESENT: soft Results Laboratory Results: WBC 4.7 10^3/uL (4.0-10.5) 08/04/20 03:55 RBC 3.57 10^6/uL (3.72-5.28) L 08/04/20 03:55 Hgb 11.3 g/dL (12.0-15.5) L 08/04/20 03:55 Hct 33.4 % (36.0-47.0) L 08/04/20 03:55 MCV 94 fl (80-97) 08/04/20 03:55 MCH 31.6 pg (27.0-33.4) 08/04/20 03:55 MCHC 33.8 g/dL (32.0-36.0) 08/04/20 03:55 RDW 14.3 % (11.5-14.0) H 08/04/20 03:55 Plt Count 196 10^3/uL (150-450) 08/04/20 03:55 Lymph % (Auto) 15.7 % (13-45) 08/04/20 03:55 Dewitt % (Auto) 12.2 % (3-13) 08/04/20 03:55 Eos % (Auto) 2.8 % (0-6) 08/04/20 03:55 Baso % (Auto) 0.7 % (0-2) 08/04/20 03:55 Absolute Neuts (auto) 3.2 10^3/uL (1.7-8.2) 08/04/20 03:55 Absolute Lymphs (auto) 0.7 10^3/uL (0.5-4.7) 08/04/20 03:55 Absolute Monos (auto) 0.6 10^3/uL (0.1-1.4) 08/04/20 03:55 Absolute Eos (auto) 0.1 10^3/uL (0.0-0.6) 08/04/20 03:55 Absolute Basos (auto) 0.0 10^3/uL (0.0-0.2) 08/04/20 03:55 Seg Neutrophils % 68.6 % (42-78) 08/04/20 03:55 PT 18.1 SEC (11.4-15.4) H 08/03/20 16:20 INR 1.48 08/03/20 16:20 APTT 45.6 SEC (23.5-35.8) H 08/03/20 16:20 Carbonic Acid 1.36 mmol/L (1.05-1.35) H 08/05/20 17:45 HCO3/H2CO3 Ratio 20:1 08/05/20 17:45 ABG pH 7.41 (7.35-7.45) 08/05/20 17:45 ABG pCO2 45.1 mmHg (35-45) H 08/05/20 17:45 ABG pO2 76.3 mmHg (80-100) L 08/05/20 17:45 ABG HCO3 28.1 mmol/L (20-24) H 08/05/20 17:45 ABG Total CO2 29.5 mmol/L (21-25) H 08/05/20 17:45 ABG O2 Saturation 95.3 % (94-98) 08/05/20 17:45 ABG Base Excess 3.0 mmol/L 08/05/20 17:45 VBG pH 7.33 (7.30-7.42) 08/03/20 16:20 VBG pCO2 73.8 mmHg (35-63) H* 08/03/20 16:20 VBG HCO3 38.2 mmol/L (20-32) H 08/03/20 16:20 VBG Base Excess 8.8 mmol/L 08/03/20 16:20 FiO2 1 08/05/20 17:45 Sodium 135.2 mmol/L (137-145) L 08/04/20 03:55 Potassium 3.3 mmol/L (3.6-5.0) L 08/04/20 03:55 Chloride 93 mmol/L (98-107) L 08/04/20 03:55 Carbon Dioxide 38 mmol/L (22-30) H 08/04/20 03:55 Anion Gap 4 (5-19) L 08/04/20 03:55 BUN 23 mg/dL (7-20) H 08/04/20 03:55 Creatinine 0.62 mg/dL (0.52-1.25) 08/04/20 03:55 Est GFR ( Amer) > 60 (>60) 08/04/20 03:55 Est GFR (MDRD) Non-Af > 60 (>60) 08/04/20 03:55 Glucose 105 mg/dL (75-110) 08/04/20 03:55 POC Glucose 109 mg/dL (70-110) 08/06/20 06:22 Lactic Acid 1.2 mmol/L (0.7-2.1) 08/03/20 16:20 Calcium 8.2 mg/dL (8.4-10.2) L 08/04/20 03:55 Total Bilirubin 0.7 mg/dL (0.2-1.3) 08/04/20 03:55 Direct Bilirubin 0.3 mg/dL (0.0-0.4) 08/04/20 03:55 Neonat Total Bilirubin Not Reportable 08/04/20 03:55 Neonat Direct Bilirubin Not Reportable 08/04/20 03:55 Neonat Indirect Bili Not Reportable 08/04/20 03:55 AST 18 U/L (14-36) 08/04/20 03:55 ALT 8 U/L (<35) 08/04/20 03:55 Alkaline Phosphatase 58 U/L (38-126) 08/04/20 03:55 Ammonia < 8.7 umol/L (9-33) L 08/03/20 18:50 Creatine Kinase < 20 U/L (30-135) L 08/03/20 16:20 Troponin I 0.013 ng/mL 08/03/20 16:20 NT-Pro-B Natriuret Pep 4970 pg/mL (<450) H 08/03/20 16:20 Total Protein 5.2 g/dL (6.3-8.2) L 08/04/20 03:55 Albumin 2.5 g/dL (3.5-5.0) L 08/04/20 03:55 Lipase 22.0 U/L (23-300) L 08/03/20 16:20 TSH 3.34 uIU/mL (0.47-4.68) 08/03/20 16:20 Urine Color YELLOW 08/03/20 15:43 Urine Appearance CLEAR 08/03/20 15:43 Urine pH 6.0 (5.0-9.0) 08/03/20 15:43 Ur Specific [place] 1.011 08/03/20 15:43 Urine Protein NEGATIVE mg/dL (NEGATIVE) 08/03/20 15:43 Urine Glucose (UA) NEGATIVE mg/dL (NEGATIVE) 08/03/20 15:43 Urine Ketones TRACE mg/dL (NEGATIVE) H 08/03/20 15:43 Urine Blood NEGATIVE (NEGATIVE) 08/03/20 15:43 Urine Nitrite NEGATIVE (NEGATIVE) 08/03/20 15:43 Urine Bilirubin NEGATIVE (NEGATIVE) 08/03/20 15:43 Urine Urobilinogen 2.0 mg/dL (<2.0) H 08/03/20 15:43 Ur Leukocyte Esterase NEGATIVE (NEGATIVE) 08/03/20 15:43 Urine WBC (Auto) 8 /HPF 08/03/20 15:43 Urine RBC (Auto) 1 /HPF 08/03/20 15:43 U Hyaline Cast (Auto) 1 /LPF 08/03/20 15:43 Urine Mucus (Auto) RARE /LPF 08/03/20 15:43 Urine Ascorbic Acid 20 (NEGATIVE) H 08/03/20 15:43 Group A Strep Rapid NEGATIVE (NEGATIVE) 08/03/20 16:40 08/03/20 16:20 Troponin I 0.013 NT-Pro-B Natriuret Pep 4970 H Impressions: Chest X-Ray 08/03/20 15:05 IMPRESSION: Small right pleural effusion with compressive atelectasis/consolidation at the right lung base. Head CT 08/03/20 15:08 IMPRESSION: No acute intracranial hemorrhage, mass, or evidence of acute territorial infarct. Mild chronic small vessel ischemic change and intracranial atherosclerosis. EVIDENCE OF ACUTE STROKE: NO. Stroke Is this a Stroke Patient?: No Acute Heart Failure Is this a Heart Failure Patient?: No
[2020-08-06 21:16] LABS: ABSOLUTE EOSINOPHILS # (AUTO) 0.2 10^3/uL (0.0-0.6); ABSOLUTE MONOCYTES (AUTO) 0.6 10^3/uL (0.1-1.4); BASOPHILS % (AUTO) 0.4 % (0-2); EOSINOPHILS % (AUTO) 3.1 % (0-6); HEMATOCRIT 33.3 % (36.0-47.0); HEMOGLOBIN 11.1 g/dL (12.0-15.5); LYMPHOCYTES % (AUTO) 16.6 % (13-45); MEAN CORPUSCULAR HEMOGLOBIN 31.3 pg (27.0-33.4); MEAN CORPUSCULAR HGB CONC 33.3 g/dL (32.0-36.0); MEAN CORPUSCULAR VOLUME 94 fl (80-97); MONOCYTES % (AUTO) 9.6 % (3-13); PLATELET COUNT 236 10^3/uL (150-450); RED BLOOD COUNT 3.54 10^6/uL (3.72-5.28); RED CELL DISTRIBUTION WIDTH 14.3 % (11.5-14.0); SEGMENTED NEUTROPHILS % (AUTO) 70.3 % (42-78); TOTAL CELLS COUNTED % (AUTO) 100 %; WHITE BLOOD COUNT 5.8 10^3/uL (4.0-10.5)
[2020-08-06 21:34] LABS: ALBUMIN 2.5 g/dL (3.5-5.0); ALKALINE PHOSPHATASE 60 U/L (38-126); ANION GAP 5 (5-19); ASPARTATE AMINO TRANSFERASE 16 U/L (14-36); BILIRUBIN,DIRECT 0.3 mg/dL (0.0-0.4); BILIRUBIN,TOTAL 0.6 mg/dL (0.2-1.3); BLOOD UREA NITROGEN 23 mg/dL (7-20); CALCIUM 7.9 mg/dL (8.4-10.2); CARBON DIOXIDE 32 mmol/L (22-30); CHLORIDE 98 mmol/L (98-107); GLUCOSE 97 mg/dL (75-110); POTASSIUM 4.1 mmol/L (3.6-5.0); TOTAL PROTEIN 5.4 g/dL (6.3-8.2)
[2020-08-06] MEDS: ATORVASTATIN CALCIUM 40 MG TABLET PO SCH (21:54)
[2020-08-06] MEDS: METOPROLOL SUCCINATE 50 MG TAB.SR.24H PO SCH (21:54)
[2020-08-07] MEDS: LEVOTHYROXINE SODIUM 0.112 MG TABLET PO SCH (09:15)
[2020-08-07] MEDS: LOSARTAN POTASSIUM 50 MG TABLET PO SCH (11:01)
[2020-08-07] MEDS: APIXABAN 5 MG TABLET PO SCH (11:01)
[2020-08-07] MEDS: SERTRALINE HCL 50 MG TABLET PO SCH (11:01)
[2020-08-07] MEDS: PANTOPRAZOLE SODIUM 40 MG VIAL IV SCH (11:01)
[2020-08-07 11:30] VITALS: BP 116/81
== END 2020-08-07 14:33 | disposition home health service (06) | DRG 189 ==
LOC: ER 14:32 → EH 18:04 → 4S 20:47
PROVIDERS: ADMIT Internal Medicine; ATTEND Internal Medicine
PROC: 5A09457 Assistance with Respiratory Ventilation, 24-96 Consecutive Hours, Continuous Positive Airway Pressure (ICD-10-PCS; principal; 2020-08-03)
PROC: 3E02340 Introduction of Influenza Vaccine into Muscle, Percutaneous Approach (ICD-10-PCS; 2020-08-07)
DX: J96.22 Acute and chronic respiratory failure with hypercapnia (principal); F03.91 Unspecified dementia, unspecified severity, with behavioral disturbance; E66.2 Morbid (severe) obesity with alveolar hypoventilation; I48.21 Permanent atrial fibrillation; J44.9 Chronic obstructive pulmonary disease, unspecified; I10 Essential (primary) hypertension; E78.5 Hyperlipidemia, unspecified; E03.9 Hypothyroidism, unspecified; K21.9 Gastro-esophageal reflux disease without esophagitis; F32.9 Major depressive disorder, single episode, unspecified; M89.49 Other hypertrophic osteoarthropathy, multiple sites; I49.3 Ventricular premature depolarization; R29.705 NIHSS score 5; I44.7 Left bundle-branch block, unspecified; Z03.818 Encounter for observation for suspected exposure to other biological agents ruled out; Z23 Encounter for immunization; Z79.899 Other long term (current) drug therapy; Z79.01 Long term (current) use of anticoagulants; Z91.19 Patient's noncompliance with other medical treatment and regimen; Z88.6 Allergy status to analgesic agent
CPT/HCPCS: 36415; 36600; 70450; 71045; 80053; 81001; 82140; 82550; 82803; 82962; 83605; 83690; 83880; 84443; 84484; 85025; 85610; 85730; 87040; 87070; 87077; 87150; 87186; 87880; 90471; 90686; 93005; 93010; 94660; 96360; 99285; C9113; G0008; J1650; J3490; J7042; J7050

== ENCOUNTER 2020-08-24 17:36 | Inpatient (IN) | payer MEDICARE, OTHER ==
--- NOTE | 2020-08-24 17:45 | ER Document Report ---
ED Neuro Symptoms/Deficit - General Stated Complaint: POSSIBLE STROKE Time Seen by Provider: 08/24/20 17:42 Primary Care Provider: NIKKI MCCULLOUGH MD [Primary Care Provider] - Follow up as needed Mode of Arrival: Medic Information source: Patient, Relative, Emergency Med Personnel Notes: 85-year-old female arrives by EMS with chief complaint of acute left- sided weakness and aphasia. By time of arrival patient was able to talk and move all extremities. She has chronic leg edema and has a history of atrial fibrillation on Eliquis RAD increased liver functions acute embolic stroke UTI staph sepsis in the past along with cellulitis of legs and status post knee TKR and hypothyroidism and hypertension. Patient is on levothyroxine. Patient CT of head upon arrival was done immediately upon patient arriving through ambulance bay to CT room. Patient is on dementia medications and also takes other medicines which may contribute to drowsiness. 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 TRAVEL OUTSIDE OF THE [place] IN LAST 30 DAYS: No - HPI Patient complains to provider of: Weakness Onset: This afternoon - Related Data Allergies/Adverse Reactions: meperidine HCl [From Demerol] Allergy (Severe, Verified 03/21/20 03:24) Past Medical History - General Information source: Relative - Social History Smoking Status: Never Smoker Cigarette use (# per day): No Chew tobacco use (# tins/day): No Smoking Education Provided: No Frequency of alcohol use: None Drug Abuse: None Family History: Reviewed & Not Pertinent Patient has suicidal ideation: No Patient has homicidal ideation: No - Past Medical History Cardiac Medical History: Reports: Hx Atrial Fibrillation, Hx Hypercholesterolemia, Hx Hypertension Denies: Hx Heart Attack Pulmonary Medical History: Reports: Hx Asthma, Hx COPD, Hx Sleep Apnea - doesn't use cpap Neurological Medical History: Denies: Hx Cerebrovascular Accident, Hx Seizures Endocrine Medical History: Reports: Hx Hypothyroidism Renal/ Medical History: Denies: Hx Peritoneal Dialysis GI Medical History: Reports: Hx Gastroesophageal Reflux Disease, Hx Hiatal Hernia. Denies: Hx Ulcer Musculoskeletal Medical History: Reports Hx Arthritis Psychiatric Medical History: Reports: Hx Dementia, Hx Depression Traumatic Medical History: Denies: Hx Gunshot Wound, Hx Pneumothorax Infectious Medical History: Denies: Hx C-Diff Past Surgical History: Reports: Hx Appendectomy, Hx Orthopedic Surgery - bilat knee, Hx Tonsillectomy, Hx Tubal Ligation. Denies: Hx Hysterectomy, Hx Open Hea rt Surgery - Immunizations Hx Diphtheria, Pertussis, Tetanus Vaccination: Yes Hx Pneumococcal Vaccination: 09/03/12 Review of Systems - Review of Systems Constitutional: See HPI, Malaise, Weakness EENT: No symptoms reported Cardiovascular: No symptoms reported Respiratory: No symptoms reported Gastrointestinal: No symptoms reported Genitourinary: No symptoms reported Female Genitourinary: No symptoms reported Musculoskeletal: No symptoms reported Skin: No symptoms reported Hematologic/Lymphatic: No symptoms reported Neurological/Psychological: See HPI, Weakness, Loss of power, Lost consciousness Physical Exam - Vital signs Interpretation: Normal - General General appearance: Appears well, Alert - HEENT Head: Normocephalic, Atraumatic Eyes: Normal Pupils: PERRL - Respiratory Respiratory status: No respiratory distress Chest status: Nontender Breath sounds: Normal Chest palpation: Normal - Cardiovascular Rhythm: Regular Heart sounds: Normal auscultation Murmur: No - Abdominal Inspection: Normal Distension: No distension Bowel sounds: Normal Tenderness: Nontender Organomegaly: No organomegaly - Rectal Hemorrhoids: Other - deferred - Genitourinary Bimanuel exam: Other - deferred - Back Back: Normal, Nontender - Extremities General upper extremity: Normal inspection, Nontender, Normal color, Normal ROM, Normal temperature, 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 No: Teri's sign - Neurological Neuro grossly intact: Yes Cognition: Normal Orientation: AAOx4 [place] Coma Scale Eye Opening: Spontaneous [place] Coma Scale Verbal: Oriented Tonya Coma Scale Motor: Obeys Commands [place] Coma Scale Total: 15 Speech: Normal Motor strength normal: LUE, RUE, LLE, RLE Sensory: Normal - Psychological Associated symptoms: Normal affect, Normal mood - Skin Skin Temperature: Warm Skin Moisture: Dry Skin Color: Normal Course - Laboratory Result Diagrams: 08/24/20 17:44 08/24/20 17:44 - Diagnostic Test Radiology reviewed: Reports reviewed - CT Head NAD and CXR wnl - EKG Interpretation by Nv EKG shows normal: Sinus rhythm Rate: Normal Rhythm: A.Fib - 48-74 bpm with borderline left axis deviation and also consider anteroseptal infarct. And this was read by myself as well as the machine. Critical Care Note - Critical Care Note Comments: I spoke with Dr. Paz at 2000 hrs. and he advised IMCU. Please note the patient had bradycardia down to 38 bpm around 2119 and we were alerted by Jhon boiler technician about this. Nursing staff arouse the patient and her heart rate increased to 55 bpm. ED Alteplase Inc/Exc Criteria - Inclusion Criteria: 1: Patient presented to ED within 3 hours of acute ischemic stroke symptom onset? -: Yes 2: Did baseline CT exclude intracranial hemorrhage and/or other risk factors? -: Yes 3: Is the age of the patient 18 years of age or greater? -: Yes : If any of the above questions are answered "NO" then stop, patient is not a candidate for Alteplase, : If all of the above questions are answered "YES" then continue with Exclusion Criteria. - Exclusion Criteria: 1: Is there evidence of intracranial hemorrhage on baseline CT? -: No 2: Is there suspicion of subarachnoid hemorrhage (even if CT negative)? -: No 3: Is there a history of serious head trauma, recent previous stroke or IA within 3 months? -: No 4: Does the patient have a clinical presentation consistent with IA or post-IA pericarditis? -: No 5: Is there history of intracranial hemorrhage? -: No 6: On repeated measurement is Systolic BP greater than 185mmHg or Diastolic BP greater that 110 mmHg and is aggressive treatment needed to reduce blood pressure to these limits (e.g. constant infusion of an anti-hypertensive)? 7: Did the patient awake with stroke symptoms? 8: Has the patient had a lumbar puncture or an arterial puncture at a non-co mpressile site within 7 days? 9: With in the last 14 days did the patient have surgery or major trauma? 10: Is the patient or less than 2 weeks? 11: Was there any active bleeding or acute trauma? 12: Does the patient have intracranial neoplasm, arteriovenous malformation or aneurysm? 13: Does the patient have abnormal glucose (less than 50 or greater than 400mg/dl)? Record glucose in Comment. 14: Patient has rapidly improving symptoms at the time Alteplase is to be Administered. 15: Does the patient have any risks for bleeding, including but not limited to: a.: Current use of Coumadin with PT greater than 15 seconds or INR greater than 1.7. b.: Current use of Pradaxa (Dabigatran). c.: Heparin administereed within the past 48 hours and PTT elevated. d.: Platelet count less than 100,000/mm. e.: Major surgery or serious trauma within 14 days. f.: Gastrointestinal or gynecological urinary bleeding within 14 days. g.: Myocardial Infarction (IA) within 3 months. : If the answer to any of the above questions is "YES" then stop, the patient is not a candidate for Alteplase. : If the answer to all of the above questions is "NO" then the patient may be eligible for the Administration of Alteplase. : If the patient is noted to have seizure activity at onset of Stroke symptoms; Consult Neurologist for further evaluation. - The patient is: -: Included and is eligible to receive Alteplase. *Initiate bed placement at higher level of care* Reviewed risks & benefits of thrombolytic therapy: I have reviewed the risks and benefits of thrombolytic therapy with the patient and/or his/her family. -: Excluded and not eligible to receive Alteplase for the above exclusions. -: Excluded and not eligible to receive Alteplase for other reasons (specify in comments): - Diagnosis of TIA: -: Patient presented with transient symptoms that are now resolved and no other neurologic findings are currently present. List symptoms in comments. -: Patient is NOT a candidate for tPA. -: ____(put name in comment) has been consulted for admission and continued evaluation of risk factor assessment. Discharge - Discharge Clinical Impression: Bradycardia, change in mental status presentation Clinical Impression: (Ruled Out): Mental status at baseline Condition: Stable Disposition: ADMITTED INPATIENT Admitting Provider: Brandi Unit Admitted: CU - Other vitals are normal Referrals: NIKKI MCCULLOUGH MD [Primary Care Provider] - Follow up as needed
--- NOTE | 2020-08-24 17:53 | RADIOLOGY REPORT (SQ) ---
EXAM DESCRIPTION: CT HEAD WITHOUT IMAGES COMPLETED DATE/TIME: 08/24/2020 5:40 pm REASON FOR STUDY: altered mental status COMPARISON: CT head 08/03/2020 TECHNIQUE: Axial images acquired through the brain without intravenous contrast. Images reviewed wi th bone, brain and subdural windows. Images stored on PACS. All CT scanners at this facility use dose modulation, iterative reconstruction, and/or weight based d osing when appropriate to reduce radiation dose to as low as reasonably achievable (ALARA). [facility]: Dose Right [facility]: CareDose [facility]: Dose Right [facility]: Teradose 4D [facility]: Wireless Seismic RADIATION DOSE: mGy. LIMITATIONS: Mild motion artifact. FINDINGS: VENTRICLES: Prominent. CEREBRUM: No masses. No hemorrhage. No midline shift. Areas of low density in the white matter mos t likely due to chronic micro-vascular ischemic change. No evidence for acute infarction. CEREBELLUM: No masses. No hemorrhage. No alteration of density. No evidence for acute infarction. EXTRAAXIAL SPACES: Mild age-related involutional change. No fluid collections. No masses. ORBITS AND GLOBE: No intra- or extraconal masses. Normal contour of globe without masses. CALVARIUM: No fracture. PARANASAL SINUSES: No fluid or mucosal thickening. SOFT TISSUES: No mass or hematoma. OTHER: No other significant finding. IMPRESSION: MILD CHRONIC CHANGES OF ATROPHY AND MICROVASCULAR ISCHEMIA. NO ACUTE PROCESS. EVIDENCE OF ACUTE STROKE: NO. TECHNICAL DOCUMENTATION: JOB ID: [id number] Quality ID # [id number]: Final reports with documentation of one or more dose reduction techniques (e.g., Au tomated exposure control, adjustment of the mA and/or kV according to patient size, use of iterative reconstruction technique) 2010 [employer]- All Rights Reserved Reading location - IP/workstation name: [email or web address]
[2020-08-24 18:02] LABS: INTERNATIONAL RATION (INR) 1.38; PROTHROMBIN TIME 17.1 SEC (11.4-15.4)
[2020-08-24 18:03] LABS: PARTIAL THROMBOPLASTIN TIME 42.9 SEC (23.5-35.8)
--- NOTE | 2020-08-24 18:06 | RADIOLOGY REPORT (SQ) ---
EXAM DESCRIPTION: CHEST SINGLE VIEW IMAGES COMPLETED DATE/TIME: 08/24/2020 5:40 pm REASON FOR STUDY: altered mental status COMPARISON: Chest radiograph 08/03/2020 NUMBER OF VIEWS: One view. TECHNIQUE: Single frontal radiographic view of the chest acquired. LIMITATIONS: None. FINDINGS: LUNGS AND PLEURA: No opacities, masses or pneumothorax. No pleural effusion. MEDIASTINUM AND HILAR STRUCTURES: No masses. Contour normal. HEART AND VASCULAR STRUCTURES: Heart is mildly prominent with a tortuous and calcified thoracic aorta . Normal vasculature. BONES: No acute findings. HARDWARE: None in the chest. OTHER: No other significant finding. IMPRESSION: No acute pulmonary process. TECHNICAL DOCUMENTATION: JOB ID: [id number] 2010 [employer]- All Rights Reserved Reading location - IP/workstation name: [email or web address]
[2020-08-24 18:09] LABS: ABSOLUTE BASOPHILS # (AUTO) 0.1 10^3/uL (0.0-0.2); ABSOLUTE EOSINOPHILS # (AUTO) 0.2 10^3/uL (0.0-0.6); ABSOLUTE MONOCYTES (AUTO) 0.6 10^3/uL (0.1-1.4); ABSOLUTE NEUT (AUTO) 3.2 10^3/uL (1.7-8.2); BASOPHILS % (AUTO) 1.4 % (0-2); EOSINOPHILS % (AUTO) 3.3 % (0-6); HEMATOCRIT 35.3 % (36.0-47.0); HEMOGLOBIN 11.7 g/dL (12.0-15.5); LYMPHOCYTES % (AUTO) 19.5 % (13-45); MEAN CORPUSCULAR HEMOGLOBIN 30.7 pg (27.0-33.4); MEAN CORPUSCULAR HGB CONC 33.2 g/dL (32.0-36.0); MEAN CORPUSCULAR VOLUME 92 fl (80-97); MONOCYTES % (AUTO) 12.5 % (3-13); PLATELET COUNT 242 10^3/uL (150-450); RED BLOOD COUNT 3.82 10^6/uL (3.72-5.28); RED CELL DISTRIBUTION WIDTH 14.7 % (11.5-14.0); SEGMENTED NEUTROPHILS % (AUTO) 63.3 % (42-78); TOTAL CELLS COUNTED % (AUTO) 100 %; WHITE BLOOD COUNT 5.1 10^3/uL (4.0-10.5)
[2020-08-24 18:25] LABS: ALBUMIN 3.2 g/dL (3.5-5.0); ALKALINE PHOSPHATASE 85 U/L (38-126); ANION GAP 5 (5-19); ASPARTATE AMINO TRANSFERASE 19 U/L (14-36); BILIRUBIN,DIRECT 0.3 mg/dL (0.0-0.4); BILIRUBIN,TOTAL 0.8 mg/dL (0.2-1.3); BLOOD UREA NITROGEN 18 mg/dL (7-20); CARBON DIOXIDE 37 mmol/L (22-30); CHLORIDE 94 mmol/L (98-107); GLUCOSE 93 mg/dL (75-110); POTASSIUM 4.2 mmol/L (3.6-5.0); TOTAL PROTEIN 6.2 g/dL (6.3-8.2)
[2020-08-24 18:28] LABS: CREATINE KINASE < 20 U/L (30-135)
[2020-08-24 18:37] LABS: CREATINE KINASE MB 0.81 ng/mL (<4.55)
[2020-08-24 18:38] LABS: TROPONIN I < 0.012 ng/mL
[2020-08-24 19:15] LABS: APPEARANCE,URINE CLEAR; BILIRUBIN,URINE NEGATIVE (NEGATIVE); COLOR,URINE YELLOW; GLUCOSE, URINE NEGATIVE (NEGATIVE); KETONES,URINE NEGATIVE (NEGATIVE); LEUKOCYTE ESTERASE,URINE NEGATIVE (NEGATIVE); NITRITE,URINE NEGATIVE (NEGATIVE); PROTEIN,URINE NEGATIVE (NEGATIVE); URINE SPECIFIC GRAVITY 1.008; UROBILINOGEN,URINE NEGATIVE mg/dL (<2.0)
[2020-08-24] MEDS ORDERED: DILTIAZEM HCL INJ 25 MG/5 ML VIAL IV ONE (20:09)
[2020-08-24 21:02] LABS: ARTERIAL BLOOD BASE EXCESS 6.2 mmol/L; ARTERIAL BLOOD H2CO3 1.64 mmol/L (1.05-1.35); ARTERIAL BLOOD HCO3 32.5 mmol/L (20-24); ARTERIAL BLOOD O2 SATURATION 89.7 % (94-98); ARTERIAL BLOOD PCO2 54.5 mmHg (35-45); ARTERIAL BLOOD PH 7.39 (7.35-7.45); ARTERIAL BLOOD PO2 58.5 mmHg (80-100); ARTERIAL BLOOD TOTAL CO2 34.1 mmol/L (21-25)
[2020-08-25] MEDS ORDERED: GLUCAGON,HUMAN RECOMB 1 MG INJ SUBCUT PRN (02:21)
[2020-08-25] MEDS ORDERED: DEXTROSE 50%-WATER 25 GM/50 ML DISP.SYRIN IV PRN ×2 (02:21)
[2020-08-25] MEDS ORDERED: DEXTROSE 40% GEL 15 GM TUBE PO PRN ×2 (02:21)
--- NOTE | 2020-08-25 12:31 | PDOC H&P ---
History of Present Illness Admission Date/PCP: 08/24/20 22:58 NIKKI MCCULLOUGH MD Patient complains of: Increase Somnolence and Less responsive History of Present Illness: GIUSEPPE RINCON is a 85 year old female patient of Dr. Mccullough who presented to the ED via EMS with reported of change in her mental status ads per daughter who arrived at home to find patient more somnolent and less responsive. She is usually on Trilogy machine for ventilatory support. There was reported left sided weakness and aphasia as per EMS report but patient was noted to move all her extremities and talk upon arrival at the ED. Her initial evaluation did revealed significant bradycardia with elevated blood pressure, hypoxemia and hypercapnia on 94% supplemental oxygen, her chest X ray and brain CT scan were devoid of acute pathologic process. She was advised hospitalization for further evaluation and management. Her morbidities are as listed below. Past Medical History Cardiac Medical History: Reports: Atrial Fibrillation, Hyperlipidema, Hypertension Denies: Myocardial Infarction Pulmonary Medical History: Reports: Asthma, Chronic Obstructive Pulmonary Disease (COPD), Sleep Apnea - doesn't use cpap Neurological Medical History: Denies: Seizures Endocrine Medical History: Reports: Hypothyroidism GI Medical History: Reports: Gastroesophageal Reflux Disease, Hiatal Hernia Musculoskeltal Medical History: Reports: Arthritis Psychiatric Medical History: Reports: Dementia, Depression Traumatic Medical History: Denies: Gunshot Wound, Pneumothorax Hematology: Denies: Anemia, Sickle Cell Disease Infectious Medical History: Denies: Clostridium Difficile Past Surgical History Past Surgical History: Reports: Appendectomy, Orthopedic Surgery - bilat knee, Tonsillectomy, Tubal Ligation Denies: Hysterectomy Social History Smoking Status: Never Smoker Electronic Cigarette use?: No Frequency of Alcohol Use: None Hx Recreational Drug Use: No Drugs: None Hx Prescription Drug Abuse: No - Advance Directive Resuscitation Status: Full Code Family History Family History: Reviewed & Not Pertinent Parental Family History Reviewed: Yes Children Family History Reviewed: Yes Sibling(s) Family History Reviewed.: Yes Medication/Allergy Home Medications: Atorvastatin Calcium [Lipitor 40 mg Tablet] 40 mg PO QHS 12/03/17 Sertraline HCl [Zoloft] 50 mg PO DAILY 12/03/17 Metoprolol Succinate [Toprol Xl 50 mg Tab.sr] 200 mg PO QHS 03/22/19 Nitrofurantoin Macrocrystal [Macrodantin] 100 mg PO DAILY 03/22/19 Tramadol HCl [Ultram 50 mg Tablet] 50 mg PO Q6HP PRN #120 tablet 03/25/19 Alprazolam 0.5 mg PO DAILYP PRN 03/21/20 Levothyroxine Sodium [Levoxyl] 112 mcg PO Q6AM 03/21/20 Losartan Potassium 50 mg PO DAILY 03/21/20 Memantine HCl/Donepezil HCl [Namzaric 28 mg-10 mg Capsule] 1 cap PO QHS 03/21/20 Apixaban [Eliquis 5 mg Tablet] 5 mg PO Q12 08/04/20 Aripiprazole [Abilify 2 mg Tablet] 2 mg PO DAILY 08/25/20 Furosemide [Lasix 40 mg Tablet] 40 mg PO DAILY 08/25/20 Allergies/Adverse Reactions: meperidine HCl [From Demerol] Allergy (Severe, Verified 03/21/20 03:24) Review of Systems Constitutional: PRESENT: weakness. ABSENT: chills, fever(s), headache(s) Eyes: ABSENT: visual disturbances Ears: ABSENT: hearing changes Cardiovascular: ABSENT: chest pain, dyspnea on exertion, edema, orthropnea, palpitations Respiratory: ABSENT: cough, hemoptysis Gastrointestinal: ABSENT: abdominal pain, constipation, diarrhea, hematemesis, hematochezia, nausea, vomiting Genitourinary: ABSENT: dysuria, hematuria Musculoskeletal: ABSENT: joint swelling Integumentary: ABSENT: rash, wounds Neurological: PRESENT: abnormal speech - Reported en route to the ED but resolved at arrival, focal weakness - resolved reported left sided weakness en route to ED. ABSENT: abnormal gait, confusion, dizziness, syncope Psychiatric: ABSENT: anxiety, depression, homidical ideation, suicidal ideation Endocrine: ABSENT: cold intolerance, heat intolerance, polydipsia, polyuria Hematologic/Lymphatic: ABSENT: easy bleeding, easy bruising, lymphadenopathy Allergic/Immunologic: ABSENT: seasonal rhinorrhea Physical Exam Vital Signs: Temp Pulse Resp BP Pulse Ox 97.2 F 62 15 153/97 H 92 08/25/20 07:13 08/25/20 07:13 08/25/20 07:13 08/25/20 07:13 08/25/20 07:13 Intake & Output 08/24/20 08/25/20 08/26/20 06:59 06:59 06:59 Weight 103.8 kg General appearance: PRESENT: no acute distress, morbidly obese Head exam: PRESENT: atraumatic, normocephalic Eye exam: PRESENT: conjunctiva pink, EOMI, PERRLA. ABSENT: scleral icterus Ear exam: PRESENT: normal external ear exam Mouth exam: PRESENT: moist, tongue midline Neck exam: PRESENT: full ROM. ABSENT: carotid bruit, JVD, lymphadenopathy, thyromegaly Respiratory exam: PRESENT: clear to auscultation mary, decreased breath sounds - at lung bases Cardiovascular exam: PRESENT: RRR. ABSENT: diastolic murmur, rubs, systolic murmur Vascular exam: ABSENT: pallor GI/Abdominal exam: PRESENT: normal bowel sounds, soft. ABSENT: distended, guarding, mass, organolmegaly, rebound, tenderness Rectal exam: PRESENT: deferred Extremities exam: PRESENT: pedal edema - minimal bilateral chronic stasis edema Musculoskeletal exam: ABSENT: ambulatory - bed bound Neurological exam: PRESENT: alert, awake, oriented to person, oriented to place, oriented to time, oriented to situation, CN II-XII grossly intact. ABSENT: motor sensory deficit Psychiatric exam: PRESENT: appropriate affect, normal mood. ABSENT: homicidal ideation, suicidal ideation Skin exam: PRESENT: dry, intact, warm. ABSENT: cyanosis, rash Results Laboratory Results: 08/24/20 17:44 08/24/20 17:44 08/24/20 08/24/20 08/24/20 17:44 17:44 17:44 WBC 5.1 RBC 3.82 Hgb 11.7 L Hct 35.3 L MCV 92 MCH 30.7 MCHC 33.2 RDW 14.7 H Plt Count 242 Seg Neutrophils % 63.3 Carbonic Acid HCO3/H2CO3 Ratio ABG pH ABG pCO2 ABG pO2 ABG HCO3 ABG O2 Saturation ABG Base Excess FiO2 Sodium 135.7 L Potassium 4.2 Chloride 94 L Carbon Dioxide 37 H Anion Gap 5 BUN 18 Creatinine 0.56 Est GFR ( Amer) > 60 Glucose 93 Calcium 9.0 Total Bilirubin 0.8 AST 19 Alkaline Phosphatase 85 Total Protein 6.2 L Albumin 3.2 L TSH 4.34 Urine Color Urine Appearance Urine pH Ur Specific [place] Urine Protein Urine Glucose (UA) Urine Ketones Urine Blood Urine Nitrite Ur Leukocyte Esterase Urine WBC (Auto) Urine RBC (Auto) 08/24/20 08/24/20 18:10 20:45 WBC RBC Hgb Hct MCV MCH MCHC RDW Plt Count Seg Neutrophils % Carbonic Acid 1.64 H HCO3/H2CO3 Ratio 19:1 ABG pH 7.39 ABG pCO2 54.5 H ABG pO2 58.5 L ABG HCO3 32.5 H ABG O2 Saturation 89.7 L ABG Base Excess 6.2 FiO2 94% Sodium Potassium Chloride Carbon Dioxide Anion Gap BUN Creatinine Est GFR ( Amer) Glucose Calcium Total Bilirubin AST Alkaline Phosphatase Total Protein Albumin TSH Urine Color YELLOW Urine Appearance CLEAR Urine pH 7.0 Ur Specific [place] 1.008 Urine Protein NEGATIVE Urine Glucose (UA) NEGATIVE Urine Ketones NEGATIVE Urine Blood NEGATIVE Urine Nitrite NEGATIVE Ur Leukocyte Esterase NEGATIVE Urine WBC (Auto) 0 Urine RBC (Auto) 0 08/24/20 08/24/20 17:44 17:44 Creatine Kinase < 20 L CK-MB (CK-2) 0.81 Troponin I < 0.012 Impressions: Chest X-Ray 08/24/20 17:37 IMPRESSION: No acute pulmonary process. Head CT 08/24/20 17:37 IMPRESSION: MILD CHRONIC CHANGES OF ATROPHY AND MICROVASCULAR ISCHEMIA. NO ACUTE PROCESS. EVIDENCE OF ACUTE STROKE: NO. Assessment & Plan - Diagnosis (1) Metabolic encephalopathy Is this a current diagnosis for this admission?: Yes Plan: See admitting covering attending physician orders for details about care plan. (2) Acute and chronic respiratory failure with hypercapnia Is this a current diagnosis for this admission?: Yes Plan: See admitting covering attending physician orders for details about care plan. (3) Chronic atrial fibrillation Is this a current diagnosis for this admission?: Yes Plan: See admitting covering attending physician orders for details about care plan. (4) Bradycardia Is this a current diagnosis for this admission?: Yes Plan: See admitting covering attending physician orders for details about care plan. (5) HTN (hypertension) Qualifiers: Hypertension type: essential hypertension Qualified Code(s): I10 - Essential (primary) hypertension Is this a current diagnosis for this admission?: Yes Plan: See admitting covering attending physician orders for details about care plan. (6) HLD (hyperlipidemia) Is this a current diagnosis for this admission?: Yes Plan: See admitting covering attending physician orders for details about care plan. (7) Hypothyroidism Qualifiers: Hypothyroidism type: acquired Qualified Code(s): E03.9 - Hypothyroidism, unspecified Is this a current diagnosis for this admission?: Yes Plan: See admitting covering attending physician orders for details about care plan. (8) Morbid (severe) obesity with alveolar hypoventilation Is this a current diagnosis for this admission?: Yes Plan: See admitting covering attending physician orders for details about care plan. (9) Obstructive sleep apnea Is this a current diagnosis for this admission?: Yes Plan: See admitting covering attending physician orders for details about care plan. - Time Time Spent: 50 to 70 Minutes Medications reviewed and adjusted accordingly: Yes Anticipated Discharge Disposition: Home with Home Health Anticipated Discharge Timeframe: within 72 hours - Inpatient Certification Based on my medical assessment, after consideration of the patient's comorbidities, presenting symptoms, or acuity I expect that the services needed warrant INPATIENT care.: Yes I certify that my determination is in accordance with my understanding of Medicare's requirements for reasonable and necessary INPATIENT services [42 CFR 412.3e].: Yes Medical Necessity: Significant Comorbidiites Make Outpatient Treatment Too Risky, Need Close Monitoring Due to Risk of Patient Decompensation, Need For Continuous Telemetry Monitoring, Risk of Complication if Not Cared For in Hospital, Risk of Diagnosis Which Will Require Inpatient Eval/Care/Monitoring Post Hospital Care: D/C Nurse Tech Documentation - Plan Summary Plan Summary: See admitting covering attending physician orders for details about care plan.
[2020-08-25] MEDS: LOSARTAN POTASSIUM 50 MG TABLET PO SCH (12:57)
[2020-08-25] MEDS: SERTRALINE HCL 50 MG TABLET PO SCH (14:30)
--- NOTE | 2020-08-25 19:21 | EKG REPORT ---
SEVERITY:- ABNORMAL ECG - ATRIAL FIBRILLATION, V-RATE 48-74 BORDERLINE LEFT AXIS DEVIATION CONSIDER ANTEROSEPTAL INFARCT : Confirmed by: J Carlos Harvey MD 25-Aug-2020 19:21:08
[2020-08-25] MEDS: ATORVASTATIN CALCIUM 40 MG TABLET PO SCH (21:01)
[2020-08-25] MEDS: APIXABAN 5 MG TABLET PO SCH (21:01)
[2020-08-25] MEDS ORDERED: (PENDING PHARMACY ID) (Memantine Hcl/Donepezil Hcl [Namzaric 28 Mg-10 Mg Capsule] 1 CAP) PO SCH (22:00)
[2020-08-26] MEDS: LEVOTHYROXINE SODIUM 0.112 MG TABLET PO SCH (05:14)
[2020-08-26] MEDS: PANTOPRAZOLE SODIUM 40 MG TABLET.DR PO SCH (05:14)
[2020-08-26 06:45] LABS: ABSOLUTE EOSINOPHILS # (AUTO) 0.1 10^3/uL (0.0-0.6); ABSOLUTE LYMPHOCYTES (AUTO) 0.7 10^3/uL (0.5-4.7); ABSOLUTE MONOCYTES (AUTO) 0.5 10^3/uL (0.1-1.4); ABSOLUTE NEUT (AUTO) 2.8 10^3/uL (1.7-8.2); HEMATOCRIT 31.2 % (36.0-47.0); HEMOGLOBIN 10.5 g/dL (12.0-15.5); LYMPHOCYTES % (AUTO) 16.8 % (13-45); MEAN CORPUSCULAR HGB CONC 33.8 g/dL (32.0-36.0); MEAN CORPUSCULAR VOLUME 92 fl (80-97); MONOCYTES % (AUTO) 12.9 % (3-13); PLATELET COUNT 190 10^3/uL (150-450); RED CELL DISTRIBUTION WIDTH 14.7 % (11.5-14.0); SEGMENTED NEUTROPHILS % (AUTO) 66.3 % (42-78); TOTAL CELLS COUNTED % (AUTO) 100 %; WHITE BLOOD COUNT 4.2 10^3/uL (4.0-10.5)
[2020-08-26 07:14] LABS: ALBUMIN 2.4 g/dL (3.5-5.0); ALKALINE PHOSPHATASE 63 U/L (38-126); ASPARTATE AMINO TRANSFERASE 16 U/L (14-36); BILIRUBIN,DIRECT 0.2 mg/dL (0.0-0.4); BILIRUBIN,TOTAL 0.6 mg/dL (0.2-1.3); BLOOD UREA NITROGEN 18 mg/dL (7-20); CALCIUM 8.4 mg/dL (8.4-10.2); GLUCOSE 88 mg/dL (75-110); POTASSIUM 3.9 mmol/L (3.6-5.0)
[2020-08-26 07:20] LABS: CARBON DIOXIDE 33 mmol/L (22-30); CHLORIDE 99 mmol/L (98-107)
[2020-08-26 07:26] LABS: ANION GAP 3 (5-19)
[2020-08-26] MEDS ORDERED: (PENDING PHARMACY ID) (Sertraline Hcl [Zoloft] 50 MG) PO SCH (10:00)
[2020-08-26] MEDS ORDERED: (PENDING PHARMACY ID) (Nitrofurantoin Macrocrystal [Macrodantin] 100 MG) PO SCH (10:00)
[2020-08-26] MEDS: LOSARTAN POTASSIUM 50 MG TABLET PO SCH (11:03)
[2020-08-26] MEDS: NITROFURANTOIN MONOHYD/M-CRYST 100 MG CAPSULE PO SCH (11:04)
[2020-08-26] MEDS: APIXABAN 5 MG TABLET PO SCH ×2 (11:04→21:30)
[2020-08-26] MEDS: SERTRALINE HCL 50 MG TABLET PO SCH (11:05)
[2020-08-26] MEDS: FUROSEMIDE 40 MG TABLET PO SCH (11:05)
[2020-08-26] MEDS: ARIPIPRAZOLE 2 MG TABLET PO SCH (11:07)
[2020-08-26 16:23] LABS: ABSOLUTE RETICS # 0.063 10^6/uL (0.028-0.122); RETICULOCYTE COUNT (AUTO) 1.86 % (0.66-2.85)
[2020-08-26 16:50] LABS: IRON(TIBC) 26.8 ug/dL (37-170)
--- NOTE | 2020-08-26 17:38 | PDOC PROGRESS REPORT ---
Subjective Progress Note for:: 08/26/20 Subjective:: Patient was admitted yesterday for evaluation of altered mental status. She has a history of chronic hypercapnic respiratory failure, presently well compensated, electrolytes was normal, the urinalysis was negative, there is no metabolic explanation for the acute encephalopathy, the CAT scan of the abdomen was done did not demonstrate any acute pathology. The daughter came by today I spoke to, she said when she saw her mother she was totally unresponsive she felt she was dying she was hysterical and she called 911 and she was transferred to the emergency room for further evaluation. She has a history of chronic hypercapnic Respiratory failure she is on home noninvasive positive pressure ventilator device. Reason For Visit: BRADYCARDIA Physical Exam Vital Signs: Temp Pulse Resp BP Pulse Ox 98.4 F 80 13 135/90 H 100 08/26/20 07:32 08/26/20 07:32 08/26/20 07:32 08/26/20 07:32 08/26/20 07:32 Intake & Output 08/25/20 08/26/20 08/27/20 06:59 06:59 06:59 Intake Total 835 Output Total 0 Balance 835 Weight 103.8 kg 104.2 kg General appearance: PRESENT: no acute distress, morbidly obese Head exam: PRESENT: atraumatic, normocephalic Eye exam: PRESENT: PERRLA Ear exam: PRESENT: normal external ear exam Mouth exam: PRESENT: moist, tongue midline Neck exam: PRESENT: full ROM Respiratory exam: PRESENT: clear to auscultation mary Cardiovascular exam: PRESENT: +S1, +S2 Pulses: PRESENT: normal dorsalis pedis pul, +2 pedal pulses bilateral Vascular exam: PRESENT: normal capillary refill GI/Abdominal exam: PRESENT: soft Rectal exam: PRESENT: deferred Neurological exam: PRESENT: alert, CN II-XII grossly intact Psychiatric exam: PRESENT: appropriate affect, normal mood Skin exam: PRESENT: dry, intact, warm Results Laboratory Results: 08/26/20 06:09 08/26/20 06:09 08/26/20 08/26/20 08/26/20 06:09 06:09 06:09 WBC 4.2 RBC 3.40 L Hgb 10.5 L Hct 31.2 L MCV 92 MCH 31.0 MCHC 33.8 RDW 14.7 H Plt Count 190 Seg Neutrophils % 66.3 Retic Count (auto) 1.86 Sodium 134.7 L Potassium 3.9 Chloride 99 Carbon Dioxide 33 H Anion Gap 3 L BUN 18 Creatinine 0.54 Est GFR ( Amer) > 60 Glucose 88 Calcium 8.4 Total Bilirubin 0.6 AST 16 Alkaline Phosphatase 63 Total Protein 5.0 L Albumin 2.4 L 08/24/20 08/24/20 17:44 17:44 Creatine Kinase < 20 L CK-MB (CK-2) 0.81 Troponin I < 0.012 Impressions: Chest X-Ray 08/24/20 17:37 IMPRESSION: No acute pulmonary process. Head CT 08/24/20 17:37 IMPRESSION: MILD CHRONIC CHANGES OF ATROPHY AND MICROVASCULAR ISCHEMIA. NO ACU TE PROCESS. EVIDENCE OF ACUTE STROKE: NO. Assessment & Plan - Diagnosis (1) Acute encephalopathy Is this a current diagnosis for this admission?: Yes Plan: She presented with acute encephalopathy, there is no metabolic explanation, MRI of the brain will be ordered, EEG be ordered as well, She is seen by the bedside she is presently responsive (2) Chronic hypercapnic respiratory failure Is this a current diagnosis for this admission?: Yes Plan: She will continue NIPPV support (3) Permanent atrial fibrillation Is this a current diagnosis for this admission?: Yes Plan: Patient on chronic anticoagulation with Eliquis for CVA prophylaxis - Time Time Spent with patient: 35 or more minutes Level of Care: IMCU Anticipated discharge: Home Anticipated DC Timeframe: within 72 hours
[2020-08-26 17:56] LABS: FOLATE 7.34 ng/mL (>2.76)
[2020-08-26] MEDS: ATORVASTATIN CALCIUM 40 MG TABLET PO SCH (21:30)
--- NOTE | 2020-08-26 23:24 | RADIOLOGY REPORT (SQ) ---
CLINICAL INDICATION: alteered mental status ? CVA . . TECHNIQUE: Unenhanced multi-planar, multi-sequence MR imaging of the brain was performed. COMPARISON: None. CORRELATION: CT brain August 24, 2020. FINDINGS: Diffusion-weighted imaging demonstrates no area of restricted diffusion to suggest acute infarction. No intracranial hemorrhage, midline shift, mass effect, or extra-axial fluid collection is demonstrated. Central [place] is patent. Brain parenchyma demonstrates normal morphology and signal characteristics. Age-related involutional changes are identified. Presumed old small vessel ischemic changes are seen predominantly in a periventricular distribution. Ectasia of the basilar artery The visualized paranasal sinuses are grossly clear. The orbits and eyeballs are unremarkable. Left mastoid effusion. . No acute intracranial process or space occupying mass is identified. IMPRESSION: No acute intracranial process. Left mastoid effusion Age-related involutional changes are identified. Presumed old small vessel ischemic changes are seen predominantly in a periventricular distribution..
[2020-08-27] MEDS: PANTOPRAZOLE SODIUM 40 MG TABLET.DR PO SCH (05:16)
[2020-08-27] MEDS: LEVOTHYROXINE SODIUM 0.112 MG TABLET PO SCH (05:16)
[2020-08-27] MEDS: APIXABAN 5 MG TABLET PO SCH ×2 (13:25→21:34)
[2020-08-27] MEDS: NITROFURANTOIN MONOHYD/M-CRYST 100 MG CAPSULE PO SCH (13:25)
[2020-08-27] MEDS: LOSARTAN POTASSIUM 50 MG TABLET PO SCH (13:25)
[2020-08-27] MEDS: SERTRALINE HCL 50 MG TABLET PO SCH (13:26)
[2020-08-27] MEDS: FUROSEMIDE 40 MG TABLET PO SCH (13:26)
[2020-08-27] MEDS: ARIPIPRAZOLE 2 MG TABLET PO SCH (13:27)
--- NOTE | 2020-08-27 13:43 | NEURO WORKBENCH EEG REPORT ---
EEG Report Patient: Desirae Brar [place] ID: [id number] Referring Doctor: Malena Arnold MD DOS: 08/27/2020 Medications: Eliquis, abilify, lipitor, lasix, synthroid, cozaar, macrobid, protonix, zoloft History This is an 85 year old left handed female with a history of asthma, sleep apnea, GERD, hiatus hernia, bilateral knee replacements, hypothyroidism, depression, psychosocial disorder, shingles, arthritis, appendectomy who was admitted with bradycardia and shaking. This EEG was requested for AMS. EEG Interpretation This EEG was recorded in the awake and minimal drowsy states. The awake EEG is characterized by a well-organized background without well-developed posterior dominant rhythm. There was a briefly noted posterior rhythm of ~9Hz. There was significant myogenic artifact during the recording that impaired interpretation. The remainder of the background was characterized by a combination of alpha with some beta frequencies. Mild drowsiness was characterized by slowing of the background rhythms. Photic stimulation resulted in no significant changes. There were no epileptiform abnormalities. The EKG showed an irregular rhythm. EEG Classification * EKG irregular rhythm EEG Impression This EEG is within normal limits for age. The EKG shows an irregular rhythm and patient was admitted for such. INTERPRETING NEUROLOGIST: Ivone Jones MD, [facility] Board Certified in Neurology, with special qualification in Child Neurology, and in Clinical Neurophysiology [facility]
--- NOTE | 2020-08-27 20:04 | PDOC PROGRESS REPORT ---
Subjective Progress Note for:: 08/27/20 Subjective:: Patient is seen by the bedside EEG is normal for age MRI is normal for age, no explanation for patient's symptoms hopefully discharge home tomorrow Reason For Visit: BRADYCARDIA Physical Exam Vital Signs: Temp Pulse Resp BP Pulse Ox 98.4 F 106 H 19 142/89 H 97 08/27/20 15:17 08/27/20 18:59 08/27/20 15:17 08/27/20 15:17 08/27/20 15:17 Intake & Output 08/26/20 08/27/20 08/28/20 06:59 06:59 06:59 Intake Total 835 1300 810 Output Total 0 1400 900 Balance 835 -100 -90 Weight 104.2 kg 103.4 kg General appearance: PRESENT: no acute distress Eye exam: PRESENT: PERRLA Respiratory exam: PRESENT: clear to auscultation mary Cardiovascular exam: PRESENT: +S1, +S2 GI/Abdominal exam: PRESENT: soft Neurological exam: PRESENT: alert Results Laboratory Results: 08/26/20 06:09 08/26/20 06:09 08/24/20 08/24/20 17:44 17:44 Creatine Kinase < 20 L CK-MB (CK-2) 0.81 Troponin I < 0.012 Impressions: Chest X-Ray 08/24/20 17:37 IMPRESSION: No acute pulmonary process. Head CT 08/24/20 17:37 IMPRESSION: MILD CHRONIC CHANGES OF ATROPHY AND MICROVASCULAR ISCHEMIA. NO ACUTE PROCESS. EVIDENCE OF ACUTE STROKE: NO. Head MRI 08/26/20 00:00 IMPRESSION: No acute intracranial process. Left mastoid effusion Age-related involutional changes are identified. Presumed old small vessel ischemic changes are seen predominantly in a periventricular distribution.. Assessment & Plan - Diagnosis (1) Acute encephalopathy Is this a current diagnosis for this admission?: Yes Plan: There is no apparent cause for the acute encephalopathy (2) Chronic hypercapnic respiratory failure Is this a current diagnosis for this admission?: Yes Plan: She will continue NIPPV support (3) Permanent atrial fibrillation Is this a current diagnosis for this admission?: Yes Plan: Patient on chronic anticoagulation with Eliquis for CVA prophylaxis - Time Time Spent with patient: 15-24 minutes Level of Care: IMCU Anticipated discharge: Home Anticipated DC Timeframe: within 36 hours
[2020-08-27] MEDS: ATORVASTATIN CALCIUM 40 MG TABLET PO SCH (21:34)
[2020-08-27] MEDS: TRAMADOL HCL 50 MG TABLET PO PRN (21:36)
[2020-08-28] MEDS: PANTOPRAZOLE SODIUM 40 MG TABLET.DR PO SCH (05:12)
[2020-08-28] MEDS: LEVOTHYROXINE SODIUM 0.112 MG TABLET PO SCH (05:13)
[2020-08-28] MEDS: NITROFURANTOIN MONOHYD/M-CRYST 100 MG CAPSULE PO SCH (09:17)
[2020-08-28] MEDS: LOSARTAN POTASSIUM 50 MG TABLET PO SCH (09:17)
[2020-08-28] MEDS: FUROSEMIDE 40 MG TABLET PO SCH (09:17)
[2020-08-28] MEDS: TRAMADOL HCL 50 MG TABLET PO PRN (09:18)
[2020-08-28] MEDS: APIXABAN 5 MG TABLET PO SCH ×2 (09:18→21:31)
[2020-08-28] MEDS: SERTRALINE HCL 50 MG TABLET PO SCH (09:19)
[2020-08-28] MEDS: ARIPIPRAZOLE 2 MG TABLET PO SCH (09:33)
--- NOTE | 2020-08-28 12:48 | EKG REPORT ---
SEVERITY:- ABNORMAL ECG - ATRIAL FIBRILLATION NONSPECIFIC INTRAVENTRICULAR CONDUCTION DELAY ANTERIOR INFARCT, AGE INDETERMINATE : Confirmed by: Hitesh Singh MD 28-Aug-2020 12:48:11
[2020-08-28] MEDS ORDERED: NITROGLYCERIN/D5W 50 MG/250 ML RTUINJ IV PRN (13:34)
[2020-08-28] MEDS ORDERED: CLOPIDOGREL BISULFATE 300 MG TABLET PO ONE (14:30)
[2020-08-28 15:23] LABS: TROPONIN I 0.018 ng/mL
[2020-08-28 15:28] LABS: CREATINE KINASE MB < 0.22 ng/mL (<4.55)
--- NOTE | 2020-08-28 17:08 | PDOC PROGRESS REPORT ---
Subjective Progress Note for:: 08/28/20 Subjective:: Patient seen by the bedside, she was admitted for evaluation and management of unspecified encephalopathy, EEG, MRI, metabolic profile was all normal, there is no explanation on the basis of metabolic, EEG or MRI for symptoms the plan was for her to be discharge home today then she complained of chest pressure, a feeling of elephant on the chest, a 12-lead EKG was done, it was A. fib with Q- wave in inferior leads, she has multiple risk factors for ischemic heart disease, because her symptoms very suspicious for ACS patient started on IV nitroglycerin infusion, he was given Plavix, patient already on anticoagulant Eliquis Reason For Visit: BRADYCARDIA Physical Exam Vital Signs: Temp Pulse Resp BP Pulse Ox 97.6 F 89 20 155/97 H 99 08/28/20 08:11 08/28/20 08:11 08/28/20 03:50 08/28/20 08:11 08/28/20 08:11 Intake & Output 08/27/20 08/28/20 08/29/20 06:59 06:59 06:59 Intake Total 1300 910 Output Total 1400 1050 Balance -100 -140 Weight 103.4 kg 103.3 kg General appearance: PRESENT: no acute distress Eye exam: PRESENT: PERRLA Respiratory exam: PRESENT: clear to auscultation mary Cardiovascular exam: PRESENT: +S1, +S2 GI/Abdominal exam: PRESENT: soft Neurological exam: PRESENT: alert Results Laboratory Results: 08/26/20 06:09 08/26/20 06:09 08/24/20 08/24/20 08/28/20 17:44 17:44 14:32 Creatine Kinase < 20 L 21 L CK-MB (CK-2) 0.81 Troponin I < 0.012 08/28/20 14:32 Creatine Kinase CK-MB (CK-2) < 0.22 Troponin I 0.018 Impressions: Chest X-Ray 08/24/20 17:37 IMPRESSION: No acute pulmonary process. Head CT 08/24/20 17:37 IMPRESSION: MILD CHRONIC CHANGES OF ATROPHY AND MICROVASCULAR ISCHEMIA. NO ACUTE PROCESS. EVIDENCE OF ACUTE STROKE: NO. Head MRI 08/26/20 00:00 IMPRESSION: No acute intracranial process. Left mastoid effusion Age-related involutional changes are identified. Presumed old small vessel ischemic changes are seen predominantly in a periventricular distribution.. Assessment & Plan - Diagnosis (1) Acute encephalopathy Is this a current diagnosis for this admission?: Yes (2) Chronic hypercapnic respiratory failure Is this a current diagnosis for this admission?: Yes (3) Permanent atrial fibrillation Is this a current diagnosis for this admission?: Yes Plan: Continue anticoagulant with Eliquis (4) ACS (acute coronary syndrome) Is this a current diagnosis for this admission?: Yes Plan: Suspect acute coronary syndrome, start nitroglycerin, atorvastatin, patient already on Eliquis, start Plavix - Time Time Spent with patient: 35 or more minutes Level of Care: IMCU Medications reviewed and adjusted accordingly: Yes Anticipated discharge: Home Anticipated DC Timeframe: within 72 hours
[2020-08-28] MEDS: ATORVASTATIN CALCIUM 40 MG TABLET PO SCH (21:31)
[2020-08-28] MEDS: TEMAZEPAM 7.5 MG CAPSULE PO SCH (21:31)
[2020-08-28 22:07] LABS: TROPONIN I 0.023 ng/mL
[2020-08-28 22:14] LABS: CREATINE KINASE MB < 0.22 ng/mL (<4.55)
[2020-08-29] MEDS: LEVOTHYROXINE SODIUM 0.112 MG TABLET PO SCH (05:33)
[2020-08-29] MEDS: PANTOPRAZOLE SODIUM 40 MG TABLET.DR PO SCH (05:33)
[2020-08-29 06:58] LABS: TROPONIN I 0.025 ng/mL
[2020-08-29 07:05] LABS: CREATINE KINASE MB < 0.22 ng/mL (<4.55)
[2020-08-29] MEDS: TRAMADOL HCL 50 MG TABLET PO PRN ×2 (08:47→15:43)
[2020-08-29] MEDS: FUROSEMIDE 40 MG TABLET PO SCH (10:53)
[2020-08-29] MEDS: CLOPIDOGREL BISULFATE 75 MG TABLET PO SCH (10:54)
[2020-08-29] MEDS: LOSARTAN POTASSIUM 50 MG TABLET PO SCH (10:54)
[2020-08-29] MEDS: NITROFURANTOIN MONOHYD/M-CRYST 100 MG CAPSULE PO SCH (10:54)
[2020-08-29] MEDS: ARIPIPRAZOLE 2 MG TABLET PO SCH (10:54)
[2020-08-29] MEDS: SERTRALINE HCL 50 MG TABLET PO SCH (10:54)
[2020-08-29] MEDS: APIXABAN 5 MG TABLET PO SCH ×2 (11:16→21:39)
--- NOTE | 2020-08-29 19:31 | PDOC CONSULTATION ---
Consultation-Blank Consultation: CARDIOLOGY CONSULTATION by Dr. Carmelina Ojeda on 08/29/2020. Patient seen at 3:30 PM. 60 minutes spent as patient with more than 50% of time spent in direct patient care. CONSULT REQUESTING PHYSICIAN: Dr. Arnold. REASON FOR CONSULTATION: Possible acute cardiac coronary syndrome in view of patient's chest pains. HISTORY OF PRESENT ILLNESS: Patient is a morbidly obese 86-year-old female with known history of hypertension, chronic atrial fibrillation on Eliquis, and history of obstructive sleep apnea on trilogy home ventilatory support at home admitted with the severe somnolence since and unresponsiveness. Her MRI of the brain shows no acute changes. The patient's initial blood gases showed that the patient's was hypoxic and also hypercapnic. But not to the extreme that it causes could cause such severe somnolence since. There was no seizure activity noted. There is no evidence of infection from any source. The daughter states that the patient did wear BiPAP [trilogy ventilatory system, prior to this happening. Also the patient since yesterday has been having chest pain which is clearly reproducible by pressing on the front of the patient's sternum. At present there is no spontaneous pain although there is still still some degree of pain elicited when pressing on the sternum. The patient's EKG shows no acute changes. And a troponin is negative. Hence this is clearly noncardiac. Past Medical History Cardiac Medical History: Reports: Atrial Fibrillation, Hyperlipidema, Hypertension Denies: Myocardial Infarction Pulmonary Medical History: Reports: Asthma, Chronic Obstructive Pulmonary Disease (COPD), Sleep Apnea - doesn't use cpap Neurological Medical History: Denies: Seizures Endocrine Medical History: Reports: Hypothyroidism GI Medical History: Reports: Gastroesophageal Reflux Disease, Hiatal Hernia Musculoskeltal Medical History: Reports: Arthritis Psychiatric Medical History: Reports: Dementia, Depression Traumatic Medical History: Denies: Gunshot Wound, Pneumothorax Hematology: Denies: Anemia, Sickle Cell Disease Infectious Medical History: Denies: Clostridium Difficile Past Surgical History Past Surgical History: Reports: Appendectomy, Orthopedic Surgery - bilat knee, Tonsillectomy, Tubal Ligation Denies: Hysterectomy Social History Smoking Status: Never Smoker Electronic Cigarette use?: No Frequency of Alcohol Use: None Hx Recreational Drug Use: No Drugs: None Hx Prescription Drug Abuse: No - Advance Directive Resuscitation Status: Full Code. The patient's daughter is a surrogate healthcare decision maker. Current Medications Generic Name Dose Route Start Last Admin Trade Name Freq PRN Reason Stop Dose Admin Apixaban 5 mg 08/25/20 22:00 08/29/20 11:16 Eliquis 5 Mg Tablet PO 09/24/20 21:59 5 mg Q12 MICHELE Administration Aripiprazole 2 mg 08/26/20 10:00 08/29/20 10:54 Abilify 2 Mg Tablet PO 09/25/20 09:59 2 mg DAILY MICHELE Administration Atorvastatin Calcium 40 mg 08/25/20 22:00 08/28/20 21:31 Lipitor 40 Mg Tablet PO 09/24/20 21:59 40 mg QHS MICHELE Administration Clopidogrel Bisulfate 75 mg 08/29/20 10:00 08/29/20 10:54 Plavix 75 Mg Tablet PO 09/28/20 09:59 75 mg DAILY MICHELE Administration Dextrose 12.5 gm 08/25/20 02:21 Dextrose Inj 50% Syringe (25 Gm/50 Ml) IV 09/24/20 02:20 PRN PRN FOR BG 50-69 IN ALERT PATIENT Protocol Dextrose 25 gm 08/25/20 02:21 Dextrose Inj 50% Syringe (25 Gm/50 Ml) IV 09/24/20 02:20 PRN PRN See Label Comments Protocol Furosemide 40 mg 08/26/20 10:00 08/29/20 10:53 Lasix 40 Mg Tablet PO 09/25/20 09:59 40 mg DAILY MICHELE Administration Glucagon 1 mg 08/25/20 02:21 Glucagen Inj 1 Mg Vial SUBCUT 09/24/20 02:20 PRN PRN Evaluate for BG < 70 Protocol Glucose 15 gm 08/25/20 02:21 Glutose 40% Gel 15 Gm Tube PO 09/24/20 02:20 PRN PRN For BG 50-69 in Alert Patient Protocol Glucose 30 gm 08/25/20 02:21 Glutose 40% Gel 15 Gm Tube PO 09/24/20 02:20 PRN PRN FOR BG < 50 IN ALERT PATIENT Protocol Nitroglycerin/Dextrose 50 mg in 250 mls @ 0 mls/hr 08/28/20 13:34 08/29/20 05:36 Ntg Rtu 50 Mg/D5w 250 Ml Iv Premix Bottle IV 09/27/20 13:33 1.5 mls/hr CONTINUOUS PRN Titration THIS MED IS NOT "PRN" Protocol Titrate Levothyroxine Sodium 0.112 mg 08/26/20 06:00 08/29/20 05:33 Synthroid 0.112 Mg Tablet PO 09/25/20 05:59 0.112 mg Q6AM MICHELE Administration Losartan Potassium 50 mg 08/25/20 12:30 08/29/20 10:54 Cozaar 50 Mg Tablet PO 09/24/20 12:29 50 mg DAILY MICHELE Administration Nitrofurantoin Macrocrystals 100 mg 08/26/20 10:00 08/29/20 10:54 Macrobid 100 Mg Capsule PO 09/02/20 09:59 100 mg DAILY MICHELE Administration Pantoprazole Sodium 40 mg 08/26/20 06:00 08/29/20 05:[address] Tablet PO 09/25/20 05:59 40 mg Q6AM MICHELE Administration Patient Own Medication 1 cap 08/25/20 22:00 Memantine Hcl/Donepezil Hcl [Namzaric 28 Mg-10 Mg Capsule] PO 09/24/20 21:59 QHS MICHELE Sertraline HCl 50 mg 08/25/20 13:00 08/29/20 10:54 Zoloft 50 Mg Tablet PO 09/24/20 12:59 50 mg DAILY MICHELE Administration Temazepam 7.5 mg 08/28/20 22:00 08/28/20 21:31 Restoril 7.5 Mg Capsule PO 09/04/20 21:59 7.5 mg QHS MICHELE Administration Tramadol HCl 50 mg 08/27/20 16:11 08/29/20 15:43 Ultram 50 Mg Tablet PO 09/03/20 16:10 50 mg Q6HP PRN Administration FOR PAIN Discontinued Medications Generic Name Dose Route Start Last Admin Trade Name Freq PRN Reason Stop Dose Admin Clopidogrel Bisulfate 300 mg 08/28/20 14:30 08/28/20 15:58 Plavix 300 Mg Tablet PO 08/28/20 14:31 300 mg NOW ONE Administration Diltiazem HCl 10 mg 08/24/20 20:09 08/24/20 20:59 Cardizem Inj 25 Mg/5 Ml Vial IV 08/24/20 20:10 10 mg NOW ONE Administration Patient Own Medication 100 mg 08/26/20 10:00 Nitrofurantoin Macrocrystal [Macrodantin] PO 09/25/20 09:59 DAILY MICHELE Family History Family History: Reviewed & Not Pertinent Parental Family History Reviewed: Yes Children Family History Reviewed: Yes Sibling(s) Family History Reviewed.: Yes Medication/Allergy Home Medications: Atorvastatin Calcium [Lipitor 40 mg Tablet] 40 mg PO QHS 12/03/17 Sertraline HCl [Zoloft] 50 mg PO DAILY 12/03/17 Metoprolol Succinate [Toprol Xl 50 mg Tab.sr] 200 mg PO QHS 03/22/19 Nitrofurantoin Macrocrystal [Macrodantin] 100 mg PO DAILY 03/22/19 Tramadol HCl [Ultram 50 mg Tablet] 50 mg PO Q6HP PRN #120 tablet 03/25/19 Alprazolam 0.5 mg PO DAILYP PRN 03/21/20 Levothyroxine Sodium [Levoxyl] 112 mcg PO Q6AM 03/21/20 Losartan Potassium 50 mg PO DAILY 03/21/20 Memantine HCl/Donepezil HCl [Namzaric 28 mg-10 mg Capsule] 1 cap PO QHS 03/21/20 Apixaban [Eliquis 5 mg Tablet] 5 mg PO Q12 08/04/20 Aripiprazole [Abilify 2 mg Tablet] 2 mg PO DAILY 08/25/20 Furosemide [Lasix 40 mg Tablet] 40 mg PO DAILY 08/25/20 Allergies/Adverse Reactions: meperidine HCl [From Demerol] Allergy (Severe, Verified 03/21/20 03:24) Review of Systems Constitutional: PRESENT: weakness. ABSENT: chills, fever(s), headache(s) Eyes: ABSENT: visual disturbances Ears: ABSENT: hearing changes Cardiovascular: ABSENT: chest pain, dyspnea on exertion, edema, orthropnea, palpitations Respiratory: ABSENT: cough, hemoptysis Gastrointestinal: ABSENT: abdominal pain, constipation, diarrhea, hematemesis, hematochezia, nausea, vomiting Genitourinary: ABSENT: dysuria, hematuria Musculoskeletal: ABSENT: joint swelling Integumentary: ABSENT: rash, wounds Neurological: PRESENT: abnormal speech - Reported en route to the ED but resolved at arrival, focal weakness - resolved reported left sided weakness en route to ED. ABSENT: abnormal gait, confusion, dizziness, syncope Psychiatric: ABSENT: anxiety, depression, homidical ideation, suicidal ideation Endocrine: ABSENT: cold intolerance, heat intolerance, polydipsia, polyuria Hematologic/Lymphatic: ABSENT: easy bleeding, easy bruising, lymphadenopathy Allergic/Immunologic: ABSENT: seasonal rhinorrhea Physical Exam: The patient is morbidly obese. At present in no acute distress. Selected Entries 08/29/20 08/29/20 08/29/20 10:42 11:00 15:00 Temperature 98.5 F Temperature Oral Source Pulse Rate 112 H Respiratory 19 Rate Blood Pressure 129/85 H Blood Pressure 99 Mean BP Location Left Arm BP Position Supine O2 Sat by Pulse 98 Oximetry Oxygen Delivery Nasal Cannula Method ( includes room air) Oxygen Flow 2 Rate Oxygen Delivery Nasal Cannula Method O2 Sat by Pulse 97 Oximetry by Telemetry HEAD: Is atraumatic normocephalic. EYES: Pupils are equal round regular reactive to light and accommodation. Extraocular movements are normal. There is no conjunctival pallor. EARS: Tympanic membranes are intact. There is no lesions on the penis. Tympanic membranes are intact. NOSE: There is no de viated nasal septum. There is no inflammation of the nasal mucous membrane. MOUTH: Mucous membranes of mouth are moist tongue is moist. The patient's modified Mallampati class IV airway. THROAT: There is no redness of the oropharynx. There is no exudates. SKIN: There is no skin rashes. There is no petechia or ecchymosis. There is no skin lesions. There is no skin rashes. NECK: Supple. There is no JVD. Carotids are equal there is no bruit. There is no lymphadenopathy. There is no goiter. There is no accessory muscles of respiration use. Trachea central. LUNGS: There is diminished air entry and prolonged expiration. There is no rhonchi rales or wheezing. HEART: S1-S2 is heard. S1 is variable intensity. There is systolic murmur in the left sternal border and the apex there is no rub. ABDOMEN: Soft. Nontender obese. There is no paraspinal megaly. Bowel sounds are well heard. EXTREMITIES femorals are deep. Femorals are diminished. There is no femoral bruits. Leg pulses are diminished. There is no pedal edema. There is no DVT or cellulitis. There is no calf tenderness CREATIVE ART THERAPIST: The patient's conscious slightly drowsy moves all 4 extremities. PSYCHIATRIC poor. Detailed testing not done due to patient's mental status. She does not appear to be anxious or agitated. Labs- Entire Visit 08/24/20 08/24/20 08/24/20 17:43 17:44 17:44 WBC 5.1 RBC 3.82 Hgb 11.7 L Hct 35.3 L MCV 92 MCH 30.7 MCHC 33.2 RDW 14.7 H Plt Count 242 Lymph % (Auto) 19.5 [place] % (Auto) 12.5 Eos % (Auto) 3.3 Baso % (Auto) 1.4 Reticulocyte # Absolute Neuts (auto) 3.2 Absolute Lymphs (auto) 1.0 Absolute Monos (auto) 0.6 Absolute Eos (auto) 0.2 Absolute Basos (auto) 0.1 Seg Neutrophils % 63.3 Retic Count (auto) PT 17.1 H INR 1.38 APTT 42.9 H Carbonic Acid HCO3/H2CO3 Ratio ABG pH ABG pCO2 ABG pO2 ABG HCO3 ABG Total CO2 ABG O2 Saturation ABG Base Excess FiO2 Sodium Potassium Chloride Carbon Dioxide Anion Gap BUN Creatinine Est GFR ( Amer) Est GFR (MDRD) Non-Af Glucose POC Glucose 94 Calcium Iron TIBC % Saturation Ferritin Total Bilirubin Direct Bilirubin Neonat Total Bilirubin Neonat Direct Bilirubin Neonat Indirect Bili AST ALT Alkaline Phosphatase Creatine Kinase CK-MB (CK-2) Troponin I Total Protein Albumin Vitamin B12 Folate TSH Urine Color Urine Appearance Urine pH Ur Specific [place] Urine Protein Urine Glucose (UA) Urine Ketones Urine Blood Urine Nitrite Urine Bilirubin Urine Urobilinogen Ur Leukocyte Esterase Urine WBC (Auto) Urine RBC (Auto) Urine Mucus (Auto) Urine Ascorbic Acid 08/24/20 08/24/20 08/24/20 17:44 17:44 17:44 WBC RBC Hgb Hct MCV MCH MCHC RDW Plt Count Lymph % (Auto) [place] % (Auto) Eos % (Auto) Baso % (Auto) Reticulocyte # Absolute Neuts (auto) Absolute Lymphs (auto) Absolute Monos (auto) Absolute Eos (auto) Absolute Basos (auto) Seg Neutrophils % Retic Count (auto) PT INR APTT Carbonic Acid HCO3/H2CO3 Ratio ABG pH ABG pCO2 ABG pO2 ABG HCO3 ABG Total CO2 ABG O2 Saturation ABG Base Excess FiO2 Sodium 135.7 L Potassium 4.2 Chloride 94 L Carbon Dioxide 37 H Anion Gap 5 BUN 18 Creatinine 0.56 Est GFR ( Amer) > 60 Est GFR (MDRD) Non-Af > 60 Glucose 93 POC Glucose Calcium 9.0 Iron TIBC % Saturation Ferritin Total Bilirubin 0.8 Direct Bilirubin 0.3 Neonat Total Bilirubin Not Reportable Neonat Direct Bilirubin Not Reportable Neonat Indirect Bili Not Reportable AST 19 ALT 8 Alkaline Phosphatase 85 Creatine Kinase < 20 L CK-MB (CK-2) 0.81 Troponin I < 0.012 Total Protein 6.2 L Albumin 3.2 L Vitamin B12 Folate TSH 4.34 Urine Color Urine Appearance Urine pH Ur Specific [place] Urine Protein Urine Glucose (UA) Urine Ketones Urine Blood Urine Nitrite Urine Bilirubin Urine Urobilinogen Ur Leukocyte Esterase Urine WBC (Auto) Urine RBC (Auto) Urine Mucus (Auto) Urine Ascorbic Acid 08/24/20 08/24/20 08/25/20 18:10 20:45 05:52 WBC RBC Hgb Hct MCV MCH MCHC RDW Plt Count Lymph % (Auto) [place] % (Auto) Eos % (Auto) Baso % (Auto) Reticulocyte # Absolute Neuts (auto) Absolute Lymphs (auto) Absolute Monos (auto) Absolute Eos (auto) Absolute Basos (auto) Seg Neutrophils % Retic Count (auto) PT INR APTT Carbonic Acid 1.64 H HCO3/H2CO3 Ratio 19:1 ABG pH 7.39 ABG pCO2 54.5 H ABG pO2 58.5 L ABG HCO3 32.5 H ABG Total CO2 34.1 H ABG O2 Saturation 89.7 L ABG Base Excess 6.2 FiO2 94% Sodium Potassium Chloride Carbon Dioxide Anion Gap BUN Creatinine Est GFR ( Amer) Est GFR (MDRD) Non-Af Glucose POC Glucose 72 Calcium Iron TIBC % Saturation Ferritin Total Bilirubin Direct Bilirubin Neonat Total Bilirubin Neonat Direct Bilirubin Neonat Indirect Bili AST ALT Alkaline Phosphatase Creatine Kinase CK-MB (CK-2) Troponin I Total Protein Albumin Vitamin B12 Folate TSH Urine Color YELLOW Urine Appearance CLEAR Urine pH 7.0 Ur Specific [place] 1.008 Urine Protein NEGATIVE Urine Glucose (UA) NEGATIVE Urine Ketones NEGATIVE Urine Blood NEGATIVE Urine Nitrite NEGATIVE Urine Bilirubin NEGATIVE Urine Urobilinogen NEGATIVE Ur Leukocyte Esterase NEGATIVE Urine WBC (Auto) 0 Urine RBC (Auto) 0 Urine Mucus (Auto) RARE Urine Ascorbic Acid NEGATIVE 08/25/20 08/26/20 08/26/20 10:47 06:09 06:09 WBC 4.2 RBC 3.40 L Hgb 10.5 L Hct 31.2 L MCV 92 MCH 31.0 MCHC 33.8 RDW 14.7 H Plt Count 190 Lymph % (Auto) 16.8 [place] % (Auto) 12.9 Eos % (Auto) 3.0 Baso % (Auto) 1.0 Reticulocyte # Absolute Neuts (auto) 2.8 Absolute Lymphs (auto) 0.7 Absolute Monos (auto) 0.5 Absolute Eos (auto) 0.1 Absolute Basos (auto) 0.0 Seg Neutrophils % 66.3 Retic Count (auto) PT INR APTT Carbonic Acid HCO3/H2CO3 Ratio ABG pH ABG pCO2 ABG pO2 ABG HCO3 ABG Total CO2 ABG O2 Saturation ABG Base Excess FiO2 Sodium 134.7 L Potassium 3.9 Chloride 99 Carbon Dioxide 33 H Anion Gap 3 L BUN 18 Creatinine 0.54 Est GFR ( Amer) > 60 Est GFR (MDRD) Non-Af > 60 Glucose 88 POC Glucose 71 Calcium 8.4 Iron TIBC % Saturation Ferritin Total Bilirubin 0.6 Direct Bilirubin 0.2 Neonat Total Bilirubin Not Reportable Neonat Direct Bilirubin Not Reportable Neonat Indirect Bili Not Reportable AST 16 ALT 5 Alkaline Phosphatase 63 Creatine Kinase CK-MB (CK-2) Troponin I Total Protein 5.0 L Albumin 2.4 L Vitamin B12 Folate TSH Urine Color Urine Appearance Urine pH Ur Specific [place] Urine Protein Urine Glucose (UA) Urine Ketones Urine Blood Urine Nitrite Urine Bilirubin Urine Urobilinogen Ur Leukocyte Esterase Urine WBC (Auto) Urine RBC (Auto) Urine Mucus (Auto) Urine Ascorbic Acid 08/26/20 08/26/20 08/28/20 06:09 06:09 08:12 WBC RBC Hgb Hct MCV MCH MCHC RDW Plt Count Lymph % (Auto) [place] % (Auto) Eos % (Auto) Baso % (Auto) Reticulocyte # 0.063 Absolute Neuts (auto) Absolute Lymphs (auto) Absolute Monos (auto) Absolute Eos (auto) Absolute Basos (auto) Seg Neutrophils % Retic Count (auto) 1.86 PT INR APTT Carbonic Acid HCO3/H2CO3 Ratio ABG pH ABG pCO2 ABG pO2 ABG HCO3 ABG Total CO2 ABG O2 Saturation ABG Base Excess FiO2 Sodium Potassium Chloride Carbon Dioxide Anion Gap BUN Creatinine Est GFR ( Amer) Est GFR (MDRD) Non-Af Glucose POC Glucose 83 Calcium Iron 26.8 L TIBC 281 % Saturation 10 Ferritin 52.30 Total Bilirubin Direct Bilirubin Neonat Total Bilirubin Neonat Direct Bilirubin Neonat Indirect Bili AST ALT Alkaline Phosphatase Creatine Kinase CK-MB (CK-2) Troponin I Total Protein Albumin Vitamin B12 321.0 Folate 7.34 TSH Urine Color Urine Appearance Urine pH Ur Specific [place] Urine Protein Urine Glucose (UA) Urine Ketones Urine Blood Urine Nitrite Urine Bilirubin Urine Urobilinogen Ur Leukocyte Esterase Urine WBC (Auto) Urine RBC (Auto) Urine Mucus (Auto) Urine Ascorbic Acid 08/28/20 08/28/20 08/28/20 14:32 14:32 21:23 WBC RBC Hgb Hct MCV MCH MCHC RDW Plt Count Lymph % (Auto) [place] % (Auto) Eos % (Auto) Baso % (Auto) Reticulocyte # Absolute Neuts (auto) Absolute Lymphs (auto) Absolute Monos (auto) Absolute Eos (auto) Absolute Basos (auto) Seg Neutrophils % Retic Count (auto) PT INR APTT Carbonic Acid HCO3/H2CO3 Ratio ABG pH ABG pCO2 ABG pO2 ABG HCO3 ABG Total CO2 ABG O2 Saturation ABG Base Excess FiO2 Sodium Potassium Chloride Carbon Dioxide Anion Gap BUN Creatinine Est GFR ( Amer) Est GFR (MDRD) Non-Af Glucose POC Glucose Calcium Iron TIBC % Saturation Ferritin Total Bilirubin Direct Bilirubin Neonat Total Bilirubin Neonat Direct Bilirubin Neonat Indirect Bili AST ALT Alkaline Phosphatase Creatine Kinase 21 L 22 L CK-MB (CK-2) < 0.22 Troponin I 0.018 Total Protein Albumin Vitamin B12 Folate TSH Urine Color Urine Appearance Urine pH Ur Specific [place] Urine Protein Urine Glucose (UA) Urine Ketones Urine Blood Urine Nitrite Urine Bilirubin Urine Urobilinogen Ur Leukocyte Esterase Urine WBC (Auto) Urine RBC (Auto) Urine Mucus (Auto) Urine Ascorbic Acid 08/28/20 08/29/20 08/29/20 21:23 05:50 05:50 WBC RBC Hgb Hct MCV MCH MCHC RDW Plt Count Lymph % (Auto) [place] % (Auto) Eos % (Auto) Baso % (Auto) Reticulocyte # Absolute Neuts (auto) Absolute Lymphs (auto) Absolute Monos (auto) Absolute Eos (auto) Absolute Basos (auto) Seg Neutrophils % Retic Count (auto) PT INR APTT Carbonic Acid HCO3/H2CO3 Ratio ABG pH ABG pCO2 ABG pO2 ABG HCO3 ABG Total CO2 ABG O2 Saturation ABG Base Excess FiO2 Sodium Potassium Chloride Carbon Dioxide Anion Gap BUN Creatinine Est GFR ( Amer) Est GFR (MDRD) Non-Af Glucose POC Glucose Calcium Iron TIBC % Saturation Ferritin Total Bilirubin Direct Bilirubin Neonat Total Bilirubin Neonat Direct Bilirubin Neonat Indirect Bili AST ALT Alkaline Phosphatase Creatine Kinase < 20 L CK-MB (CK-2) < 0.22 < 0.22 Troponin I 0.023 0.025 Total Protein Albumin Vitamin B12 Folate TSH Urine Color Urine Appearance Urine pH Ur Specific [place] Urine Protein Urine Glucose (UA) Urine Ketones Urine Blood Urine Nitrite Urine Bilirubin Urine Urobilinogen Ur Leukocyte Esterase Urine WBC (Auto) Urine RBC (Auto) Urine Mucus (Auto) Urine Ascorbic Acid Chest X-Ray 08/24/20 17:37 IMPRESSION: No acute pulmonary process. Head CT 08/24/20 17:37 IMPRESSION: MILD CHRONIC CHANGES OF ATROPHY AND MICROVASCULAR ISCHEMIA. NO ACUTE PROCESS. EVIDENCE OF ACUTE STROKE: NO. Head MRI 08/26/20 00:00 IMPRESSION: No acute intracranial process. Left mastoid effusion Age-related involutional changes are identified. Presumed old small vessel ischemic changes are seen predominantly in a periventricular distribution.. EEG: Shows no epileptic form focus. The patient is to EKG showed atrial fibrillation with controlled ventricular response. Consider old anterior CO versus lead placement. IMPRESSION/RECOMMENDATION: 1. Chest pain: At present spontaneous chest pain has resolved resolved. This is clearly noncardiac chest pain. The patient does have multiple CAD risk factors. Hence would recommend once the patient is clinically stable would recommend getting an IV Lexiscan Cardiolite stress test. 2. Acute on chronic hypercapnic respiratory failure: Continue periodic ventilatory support with trilogy.. 3. Chronic atrial fibrillation: At present well-controlled heart rate. Continue Eliquis. Continue beta-tony 5. Hypertension: Blood pressure slightly elevated. This may be due to CO2 retention. Will observe the blood pressure and if needed increase the patient's ARB. 6. Obstructive sleep apnea: Patient at present on trilogy home ventilator system. 7. Hypothyroidism: Continue replacement 8. Hyperlipidemia: Continue statin 9. Dementia: Continue her anti-dementia medication. 10. History of depression: Continue her antidepressants. 11. Morbid obesity. Medications reviewed. Medications added. Medical regimen management plan discussed with attending provider on the case. Medical decision making is of moderate complexity. 60 minutes spent as patient more than 50% of time spent in direct patient care. Will follow.
[2020-08-29] MEDS: ATORVASTATIN CALCIUM 40 MG TABLET PO SCH (21:39)
[2020-08-29] MEDS: TEMAZEPAM 7.5 MG CAPSULE PO SCH (21:39)
--- NOTE | 2020-08-29 21:46 | PDOC PROGRESS REPORT ---
Subjective Progress Note for:: 08/29/20 Subjective:: Patient seen by the bedside, she was admitted for evaluation and management of unspecified encephalopathy, EEG, MRI, metabolic profile was all normal, there is no explanation on the basis of metabolic, EEG or MRI for symptoms the plan was for her to be discharge home today then she complained of chest pressure, a feeling of elephant on the chest, a 12-lead EKG was done, it was A. fib with Q- wave in inferior leads, she has multiple risk factors for ischemic heart disease, because her symptoms very suspicious for ACS patient started on IV nitroglycerin infusion, he was given Plavix, patient already on anticoagulant Eliquis Patient said she has less chest pain, she was seen by Dr. Valentin, cardiology, it was felt the chest pain is noncardiac because this reproducible on palpation but because she has multiple risk factor for ischemic heart disease, recommend outpatient stress test. So far cardiac enzymes negative, hopefully discharge home in a day or 2 Reason For Visit: BRADYCARDIA Physical Exam Vital Signs: Temp Pulse Resp BP Pulse Ox 98.5 F 112 H 19 111/82 98 08/29/20 15:00 08/29/20 15:00 08/29/20 15:00 08/29/20 18:00 08/29/20 15:00 Intake & Output 08/28/20 08/29/20 08/30/20 06:59 06:59 06:59 Intake Total 910 649 710 Output Total 1050 Balance -140 649 710 Weight 103.3 kg 104.6 kg General appearance: PRESENT: no acute distress Eye exam: PRESENT: PERRLA Respiratory exam: PRESENT: clear to auscultation mary Cardiovascular exam: PRESENT: +S1, +S2 GI/Abdominal exam: PRESENT: soft Neurological exam: PRESENT: alert, CN II-XII grossly intact Results Laboratory Results: 08/26/20 06:09 08/26/20 06:09 08/24/20 08/24/20 08/28/20 17:44 17:44 14:32 Creatine Kinase < 20 L 21 L CK-MB (CK-2) 0.81 Troponin I < 0.012 08/28/20 08/28/20 08/28/20 14:32 21:23 21:23 Creatine Kinase 22 L CK-MB (CK-2) < 0.22 < 0.22 Troponin I 0.018 0.023 08/29/20 08/29/20 05:50 05:50 Creatine Kinase < 20 L CK-MB (CK-2) < 0.22 Troponin I 0.025 Impressions: Chest X-Ray 08/24/20 17:37 IMPRESSION: No acute pulmonary process. Head CT 08/24/20 17:37 IMPRESSION: MILD CHRONIC CHANGES OF ATROPHY AND MICROVASCULAR ISCHEMIA. NO ACUTE PROCESS. EVIDENCE OF ACUTE STROKE: NO. Head MRI 08/26/20 00:00 IMPRESSION: No acute intracranial process. Left mastoid effusion Age-related involutional changes are identified. Presumed old small vessel ischemic changes are seen predominantly in a periventricular distribution.. Assessment & Plan - Diagnosis (1) Acute encephalopathy Is this a current diagnosis for this admission?: Yes Plan: Patient is awake alert responsive communicative engaging (2) Chronic hypercapnic respiratory failure Is this a current diagnosis for this admission?: Yes (3) Permanent atrial fibrillation Is this a current diagnosis for this admission?: Yes Plan: Continue anticoagulant with Eliquis (4) ACS (acute coronary syndrome) Is this a current diagnosis for this admission?: Yes - Time Time Spent with patient: 25-34 minutes Level of Care: IMCU Anticipated discharge: Home Anticipated DC Timeframe: within 48 hours
[2020-08-30] MEDS: LEVOTHYROXINE SODIUM 0.112 MG TABLET PO SCH (06:23)
[2020-08-30] MEDS: PANTOPRAZOLE SODIUM 40 MG TABLET.DR PO SCH (06:24)
[2020-08-30] MEDS: CLOPIDOGREL BISULFATE 75 MG TABLET PO SCH (09:38)
[2020-08-30] MEDS: NITROFURANTOIN MONOHYD/M-CRYST 100 MG CAPSULE PO SCH (09:38)
[2020-08-30] MEDS: FUROSEMIDE 40 MG TABLET PO SCH (09:39)
[2020-08-30] MEDS: APIXABAN 5 MG TABLET PO SCH ×2 (09:39→21:04)
[2020-08-30] MEDS: SERTRALINE HCL 50 MG TABLET PO SCH (09:39)
[2020-08-30] MEDS: ARIPIPRAZOLE 2 MG TABLET PO SCH (09:39)
[2020-08-30] MEDS: LOSARTAN POTASSIUM 50 MG TABLET PO SCH (11:22)
[2020-08-30] MEDS: TRAMADOL HCL 50 MG TABLET PO PRN ×2 (12:29→21:05)
--- NOTE | 2020-08-30 15:42 | Progress Note ---
Provider Note Provider Note: CARDIOLOGY PROGRESS NOTE by Dr. Osmany Wu on 08/30/2020. SUBJECTIVE: The patient continues to have chest wall pain, reproducible pressing on the chest. She dropped her blood pressure and hence IV nitroglycerin drip was discontinued. There is no indication for IV nitroglycerin on this patient. Her pain is clearly noncardiac. The patient remains in atrial fibrillation. The heart rate is in the low 100s. She denies any shortness of breath. She is on nasal cannula at present. There is no ventricle arrhythmia seen on the monitor. There is no PND orthopnea or leg edema. There is no TIA CVA symptoms. There is no bleeding on anticoagulation. PHYSICAL EXAMINATION: The patient is morbidly obese. In some distress due to chest wall pain. Selected Entries 08/30/20 08/30/20 08/30/20 10:00 10:29 10:48 Pulse Rate 109 H Blood Pressure 93/57 L Blood Pressure 69 Mean O2 Sat by Pulse 96 Oximetry Oxygen Delivery Nasal Cannula Method ( includes room air) Respiratory rate is 18/min. Oxygen Flow 2 Rate HEAD: Is atraumatic normocephalic. EYES: Pupils are equal round regular reactive to light and accommodation. Extraocular movements are normal. There is no conjunctival pallor. EARS: Tympanic membranes are intact. There is no lesions on the penis. Tympanic membranes are intact. NOSE: There is no deviated nasal septum. There is no inflammation of the nasal mucous membrane. MOUTH: Mucous membranes of mouth are moist tongue is moist. The patient's modified Mallampati class IV airway. THROAT: There is no redness of the oropharynx. There is no exudates. SKIN: There is no skin rashes. There is no petechia or ecchymosis. There is no skin lesions. There is no skin rashes. NECK: Supple. There is no JVD. Carotids are equal there is no bruit. There is no lymphadenopathy. There is no goiter. There is no accessory muscles of respiration use. Trachea central. LUNGS: There is diminished air entry and prolonged expiration. There is no rhonchi rales or wheezing. HEART: S1-S2 is heard. S1 is variable intensity. There is systolic murmur in the left sternal border and the apex there is no rub. ABDOMEN: Soft. Nontender obese. There is no paraspinal megaly. Bowel sounds are well heard. EXTREMITIES femorals are deep. Femorals are diminished. There is no femoral bruits. Leg pulses are diminished. There is no pedal edema. There is no DVT or cellulitis. There is no calf tenderness PHYSICIAN RELATIONS SPECIALIST: The patient's conscious slightly drowsy moves all 4 extremities. PSYCHIATRIC poor. Detailed testing not done due to patient's mental status. She does not appear to be anxious or agitated. Chest X-Ray 08/24/20 17:37 IMPRESSION: No acute pulmonary process. Head CT 08/24/20 17:37 IMPRESSION: MILD CHRONIC CHANGES OF ATROPHY AND MICROVASCULAR ISCHEMIA. NO ACUTE PROCESS. EVIDENCE OF ACUTE STROKE: NO. Head MRI 08/26/20 00:00 IMPRESSION: No acute intracranial process. Left mastoid effusion Age-related involutional changes are identified. Presumed old small vessel ischemic changes are seen predominantly in a periventricular distribution.. IMPRESSION/RECOMMENDATION: 1. Chest pain: Noncardiac chest wall pain. Hence would recommend once the patient is clinically stable would recommend getting an IV Lexiscan Cardiolite stress test, in view of multiple CAD factors. This can be done as an outpati 2. Acute on chronic hypercapnic respiratory failure: Continue periodic ventilatory support with trilogy.. 3. Chronic atrial fibrillation: At present well-controlled heart rate. Co ntinue Eliquis. Continue beta-tony 5. Hypertension: Blood pressure slightly elevated. This may be due to CO2 retention. Will observe the blood pressure and if needed increase the patient's ARB. 6. Obstructive sleep apnea: Patient at present on trilogy home ventilator system. 7. Hypothyroidism: Continue replacement 8. Hyperlipidemia: Continue statin 9. Dementia: Continue her anti-dementia medication. 10. History of depression: Continue her antidepressants. 11. Morbid obesity. Medications reviewed. Medications added. Medical regimen management plan discussed with attending provider on the case. Medical decision making is of moderate complexity. 60 minutes spent as patient more than 50% of time spent in direct patient care. Will sign off..
--- NOTE | 2020-08-30 21:01 | PDOC PROGRESS REPORT ---
Subjective Progress Note for:: 08/30/20 Subjective:: Patient seen by the bedside the pain she is experiencing is suggestive of musculoskeletal pain, she is requesting a stronger pain medication, this is not advisable especially in this patient with obesity related hypoventilation syndrome Reason For Visit: BRADYCARDIA Physical Exam Vital Signs: Temp Pulse Resp BP Pulse Ox 97.5 F 95 17 135/65 H 98 08/30/20 15:28 08/30/20 19:00 08/30/20 15:28 08/30/20 15:28 08/30/20 16:44 Intake & Output 08/29/20 08/30/20 08/31/20 06:59 06:59 06:59 Intake Total 649 710 480 Output Total 2 Balance 649 710 478 Weight 104.6 kg 105.8 kg 105.8 kg General appearance: PRESENT: no acute distress Eye exam: PRESENT: PERRLA Respiratory exam: PRESENT: clear to auscultation mary Cardiovascular exam: PRESENT: +S1, +S2 GI/Abdominal exam: PRESENT: soft Neurological exam: PRESENT: alert, CN II-XII grossly intact Results Laboratory Results: 08/26/20 06:09 08/26/20 06:09 08/24/20 08/24/20 08/28/20 17:44 17:44 14:32 Creatine Kinase < 20 L 21 L CK-MB (CK-2) 0.81 Troponin I < 0.012 08/28/20 08/28/20 08/28/20 14:32 21:23 21:23 Creatine Kinase 22 L CK-MB (CK-2) < 0.22 < 0.22 Troponin I 0.018 0.023 08/29/20 08/29/20 05:50 05:50 Creatine Kinase < 20 L CK-MB (CK-2) < 0.22 Troponin I 0.025 Impressions: Chest X-Ray 08/24/20 17:37 IMPRESSION: No acute pulmonary process. Head CT 08/24/20 17:37 IMPRESSION: MILD CHRONIC CHANGES OF ATROPHY AND MICROVASCULAR ISCHEMIA. NO ACUTE PROCESS. EVIDENCE OF ACUTE STROKE: NO. Head MRI 08/26/20 00:00 IMPRESSION: No acute intracranial process. Left mastoid effusion Age-related involutional changes are identified. Presumed old small vessel ischemic changes are seen predominantly in a periventricular distribution.. Assessment & Plan - Diagnosis (1) Acute encephalopathy Is this a current diagnosis for this admission?: Yes Plan: Patient is awake alert responsive communicative engaging (2) Chronic hypercapnic respiratory failure Is this a current diagnosis for this admission?: Yes (3) Permanent atrial fibrillation Is this a current diagnosis for this admission?: Yes Plan: Continue anticoagulant with Eliquis (4) ACS (acute coronary syndrome) Is this a current diagnosis for this admission?: Yes - Time Time Spent with patient: 15-24 minutes Level of Care: IMCU Medications reviewed and adjusted accordingly: Yes Anticipated discharge: Home Anticipated DC Timeframe: within 24 hours
[2020-08-30] MEDS: TEMAZEPAM 7.5 MG CAPSULE PO SCH (21:04)
[2020-08-30] MEDS: ATORVASTATIN CALCIUM 40 MG TABLET PO SCH (21:04)
[2020-08-31] MEDS: LEVOTHYROXINE SODIUM 0.112 MG TABLET PO SCH (05:21)
[2020-08-31] MEDS: PANTOPRAZOLE SODIUM 40 MG TABLET.DR PO SCH (05:21)
[2020-08-31] MEDS: APIXABAN 5 MG TABLET PO SCH (09:19)
[2020-08-31] MEDS: NITROFURANTOIN MONOHYD/M-CRYST 100 MG CAPSULE PO SCH (09:19)
[2020-08-31] MEDS: CLOPIDOGREL BISULFATE 75 MG TABLET PO SCH (09:20)
[2020-08-31] MEDS: ARIPIPRAZOLE 2 MG TABLET PO SCH (09:20)
[2020-08-31] MEDS: SERTRALINE HCL 50 MG TABLET PO SCH (09:20)
[2020-08-31] MEDS: FUROSEMIDE 40 MG TABLET PO SCH (09:20)
[2020-08-31] MEDS: LOSARTAN POTASSIUM 50 MG TABLET PO SCH (09:20)
[2020-08-31] MEDS: TRAMADOL HCL 50 MG TABLET PO PRN (09:22)
--- NOTE | 2020-08-31 14:42 | PDOC DISCHARGE SUMMARY ---
Impression - Admit/DC Date/PCP Admission Date/Primary Care Provider: 08/24/20 22:58 NIKKI MCCULLOUGH MD Discharge Date: 08/31/20 - Discharge Diagnosis (1) Acute encephalopathy Is this a current diagnosis for this admission?: Yes (2) Chronic hypercapnic respiratory failure Is this a current diagnosis for this admission?: Yes (3) Permanent atrial fibrillation Is this a current diagnosis for this admission?: Yes (4) Musculoskeletal chest pain Is this a current diagnosis for this admission?: Yes (5) Hypoxemia Is this a current diagnosis for this admission?: Yes (6) Chronic obstructive pulmonary disease (COPD) Is this a current diagnosis for this admission?: Yes - Additional Information Resuscitation Status: Full Code Referrals: NIKKI MCCULLOUGH MD [Primary Care Provider] - Follow up as needed Home Medications: Atorvastatin Calcium [Lipitor 40 mg Tablet] 40 mg PO QHS 12/03/17 Sertraline HCl [Zoloft] 50 mg PO DAILY 12/03/17 Metoprolol Succinate [Toprol Xl 50 mg Tab.sr] 200 mg PO QHS 03/22/19 Nitrofurantoin Macrocrystal [Macrodantin] 100 mg PO DAILY 03/22/19 Tramadol HCl [Ultram 50 mg Tablet] 50 mg PO Q6HP PRN #120 tablet 03/25/19 Alprazolam 0.5 mg PO DAILYP PRN 03/21/20 Levothyroxine Sodium [Levoxyl] 112 mcg PO Q6AM 03/21/20 Losartan Potassium 50 mg PO DAILY 03/21/20 Memantine HCl/Donepezil HCl [Namzaric 28 mg-10 mg Capsule] 1 cap PO QHS 03/21/20 Apixaban [Eliquis 5 mg Tablet] 5 mg PO Q12 08/04/20 Aripiprazole [Abilify 2 mg Tablet] 2 mg PO DAILY 08/25/20 Furosemide [Lasix 40 mg Tablet] 40 mg PO DAILY 08/25/20 History of Present Illiness History of Present Illness: GIUSEPPE RINCON is a 85 year old female who presented to the ED via EMS change in her mental status per daughter who arrived at home to find patient more somnolent and less responsive. She is usually on Trilogy machine for ventilatory support. There was reported left sided weakness and aphasia as per EMS report but patient was noted to move all her extremities and talk upon arrival at the ED. Her initial evaluation did revealed significant bradycardia with elevated blood pressure, hypoxemia and hypercapnia on 94% supplemental oxygen, her chest X ray and brain CT scan were devoid of acute pathologic process. She was advised hospitalization for further evaluation and management. Her morbidities are as listed below. Hospital Course Hospital Course: Patient was admitted for the management encephalopathy, she has a history of obesity hypoventilation syndrome, she is on home noninvasive positive pressure ventilation with trilogy. There was no metabolic explanation for the patient at presentation the arterial blood gas demonstrated normal pH with a mixed acid- base disorder, the comprehensive metabolic panel was all within normal limits. MRI of the brain was done it was negative EEG of the brain was done, it was normal for age patient noted to have hypoxemia due to COPD, she is being discharged home on oxygen she had episode of chest pressure in the hospital, she was treated with IV nitroglycerin infusion, because it was chest pressure and she has risk factor of ischemic heart disease, ACS was suspected. The chest pain was reproducible, she was seen in consultation by Dr. Plaza cardiology, he felt this is a noncardiac chest pain because it is reproducible she is discharged on oxygen. Physical Exam Vital Signs: Temp Pulse Resp BP Pulse Ox 97.4 F 107 H 18 114/75 89 L 08/31/20 08:09 08/31/20 08:09 08/31/20 08:09 08/31/20 08:09 08/31/20 08:09 Intake & Output 08/30/20 08/31/20 09/01/20 06:59 06:59 05:59 Intake Total 710 920 Output Total 2 Balance 710 918 Weight 105.8 kg 105.2 kg General appearance: PRESENT: no acute distress Eye exam: PRESENT: scleral icterus Respiratory exam: PRESENT: clear to auscultation mary Cardiovascular exam: PRESENT: +S1, +S2 GI/Abdominal exam: PRESENT: soft Neurological exam: PRESENT: alert Results Laboratory Results: WBC 4.2 10^3/uL (4.0-10.5) 08/26/20 06:09 RBC 3.40 10^6/uL (3.72-5.28) L 08/26/20 06:09 Hgb 10.5 g/dL (12.0-15.5) L 08/26/20 06:09 Hct 31.2 % (36.0-47.0) L 08/26/20 06:09 MCV 92 fl (80-97) 08/26/20 06:09 MCH 31.0 pg (27.0-33.4) 08/26/20 06:09 MCHC 33.8 g/dL (32.0-36.0) 08/26/20 06:09 RDW 14.7 % (11.5-14.0) H 08/26/20 06:09 Plt Count 190 10^3/uL (150-450) 08/26/20 06:09 Lymph % (Auto) 16.8 % (13-45) 08/26/20 06:09 [place] % (Auto) 12.9 % (3-13) 08/26/20 06:09 Eos % (Auto) 3.0 % (0-6) 08/26/20 06:09 Baso % (Auto) 1.0 % (0-2) 08/26/20 06:09 Reticulocyte # 0.063 10^6/uL (0.028-0.122) 08/26/20 06:09 Absolute Neuts (auto) 2.8 10^3/uL (1.7-8.2) 08/26/20 06:09 Absolute Lymphs (auto) 0.7 10^3/uL (0.5-4.7) 08/26/20 06:09 Absolute Monos (auto) 0.5 10^3/uL (0.1-1.4) 08/26/20 06:09 Absolute Eos (auto) 0.1 10^3/uL (0.0-0.6) 08/26/20 06:09 Absolute Basos (auto) 0.0 10^3/uL (0.0-0.2) 08/26/20 06:09 Seg Neutrophils % 66.3 % (42-78) 08/26/20 06:09 Retic Count (auto) 1.86 % (0.66-2.85) 08/26/20 06:09 PT 17.1 SEC (11.4-15.4) H 08/24/20 17:44 INR 1.38 08/24/20 17:44 APTT 42.9 SEC (23.5-35.8) H 08/24/20 17:44 Carbonic Acid 1.64 mmol/L (1.05-1.35) H 08/24/20 20:45 HCO3/H2CO3 Ratio 19:1 08/24/20 20:45 ABG pH 7.39 (7.35-7.45) 08/24/20 20:45 ABG pCO2 54.5 mmHg (35-45) H 08/24/20 20:45 ABG pO2 58.5 mmHg (80-100) L 08/24/20 20:45 ABG HCO3 32.5 mmol/L (20-24) H 08/24/20 20:45 ABG Total CO2 34.1 mmol/L (21-25) H 08/24/20 20:45 ABG O2 Saturation 89.7 % (94-98) L 08/24/20 20:45 ABG Base Excess 6.2 mmol/L 08/24/20 20:45 FiO2 94% 08/24/20 20:45 Sodium 134.7 mmol/L (137-145) L 08/26/20 06:09 Potassium 3.9 mmol/L (3.6-5.0) 08/26/20 06:09 Chloride 99 mmol/L (98-107) 08/26/20 06:09 Carbon Dioxide 33 mmol/L (22-30) H 08/26/20 06:09 Anion Gap 3 (5-19) L 08/26/20 06:09 BUN 18 mg/dL (7-20) 08/26/20 06:09 Creatinine 0.54 mg/dL (0.52-1.25) 08/26/20 06:09 Est GFR ( Amer) > 60 (>60) 08/26/20 06:09 Est GFR (MDRD) Non-Af > 60 (>60) 08/26/20 06:09 Glucose 88 mg/dL (75-110) 08/26/20 06:09 POC Glucose 83 mg/dL (70-110) 08/28/20 08:12 Calcium 8.4 mg/dL (8.4-10.2) 08/26/20 06:09 Iron 26.8 ug/dL (37-170) L 08/26/20 06:09 TIBC 281 ug/dL (250-450) 08/26/20 06:09 % Saturation 10 % 08/26/20 06:09 Ferritin 52.30 ng/mL (11.1-264.0) 08/26/20 06:09 Total Bilirubin 0.6 mg/dL (0.2-1.3) 08/26/20 06:09 Direct Bilirubin 0.2 mg/dL (0.0-0.4) 08/26/20 06:09 Neonat Total Bilirubin Not Reportable 08/26/20 06:09 Neonat Direct Bilirubin Not Reportable 08/26/20 06:09 Neonat Indirect Bili Not Reportable 08/26/20 06:09 AST 16 U/L (14-36) 08/26/20 06:09 ALT 5 U/L (<35) 08/26/20 06:09 Alkaline Phosphatase 63 U/L (38-126) 08/26/20 06:09 Creatine Kinase < 20 U/L (30-135) L 08/29/20 05:50 CK-MB (CK-2) < 0.22 ng/mL (<4.55) 08/29/20 05:50 Troponin I 0.025 ng/mL 08/29/20 05:50 Total Protein 5.0 g/dL (6.3-8.2) L 08/26/20 06:09 Albumin 2.4 g/dL (3.5-5.0) L 08/26/20 06:09 Vitamin B12 321.0 pg/mL (239-931) 08/26/20 06:09 Folate 7.34 ng/mL (>2.76) 08/26/20 06:09 TSH 4.34 uIU/mL (0.47-4.68) 08/24/20 17:44 Urine Color YELLOW 08/24/20 18:10 Urine Appearance CLEAR 08/24/20 18:10 Urine pH 7.0 (5.0-9.0) 08/24/20 18:10 Ur Specific [place] 1.008 08/24/20 18:10 Urine Protein NEGATIVE mg/dL (NEGATIVE) 08/24/20 18:10 Urine Glucose (UA) NEGATIVE mg/dL (NEGATIVE) 08/24/20 18:10 Urine Ketones NEGATIVE mg/dL (NEGATIVE) 08/24/20 18:10 Urine Blood NEGATIVE (NEGATIVE) 08/24/20 18:10 Urine Nitrite NEGATIVE (NEGATIVE) 08/24/20 18:10 Urine Bilirubin NEGATIVE (NEGATIVE) 08/24/20 18:10 Urine Urobilinogen NEGATIVE mg/dL (<2.0) 08/24/20 18:10 Ur Leukocyte Esterase NEGATIVE (NEGATIVE) 08/24/20 18:10 Urine WBC (Auto) 0 /HPF 08/24/20 18:10 Urine RBC (Auto) 0 /HPF 08/24/20 18:10 Urine Mucus (Auto) RARE /LPF 08/24/20 18:10 Urine Ascorbic Acid NEGATIVE (NEGATIVE) 08/24/20 18:10 08/24/20 08/28/20 08/28/20 17:44 14:32 21:23 CK-MB (CK-2) 0.81 < 0.22 < 0.22 Troponin I < 0.012 0.018 0.023 08/29/20 05:50 CK-MB (CK-2) < 0.22 Troponin I 0.025 Impressions: Chest X-Ray 08/24/20 17:37 IMPRESSION: No acute pulmonary process. Head CT 08/24/20 17:37 IMPRESSION: MILD CHRONIC CHANGES OF ATROPHY AND MICROVASCULAR ISCHEMIA. NO ACUTE PROCESS. EVIDENCE OF ACUTE STROKE: NO. Head MRI 08/26/20 00:00 IMPRESSION: No acute intracranial process. Left mastoid effusion Age-related involutional changes are identified. Presumed old small vessel ischemic changes are seen predominantly in a periventricular distribution.. Stroke Is this a Stroke Patient?: No Acute Heart Failure Is this a Heart Failure Patient?: No
[2020-08-31 15:43] VITALS: BP 169/79
== END 2020-08-31 16:16 | disposition home health service (06) | DRG 71 ==
LOC: ER 17:36 → EH 22:58 → 3W 08-25 01:02
PROVIDERS: ADMIT Internal Medicine Geriatric Medicine; ATTEND Internal Medicine
DX: G93.40 Encephalopathy, unspecified (principal); J96.12 Chronic respiratory failure with hypercapnia; R47.01 Aphasia; I24.9 Acute ischemic heart disease, unspecified; E66.2 Morbid (severe) obesity with alveolar hypoventilation; Z68.41 Body mass index [BMI] 40.0-44.9, adult; I48.21 Permanent atrial fibrillation; R00.1 Bradycardia, unspecified; E03.9 Hypothyroidism, unspecified; I10 Essential (primary) hypertension; J44.9 Chronic obstructive pulmonary disease, unspecified; F03.90 Unspecified dementia, unspecified severity, without behavioral disturbance, psychotic disturbance, mood disturbance, and anxiety; F32.9 Major depressive disorder, single episode, unspecified; R07.89 Other chest pain; R53.1 Weakness; Z79.02 Long term (current) use of antithrombotics/antiplatelets; Z86.73 Personal history of transient ischemic attack (TIA), and cerebral infarction without residual deficits; Z96.659 Presence of unspecified artificial knee joint; Z88.5 Allergy status to narcotic agent; Z79.899 Other long term (current) drug therapy; Z99.89 Dependence on other enabling machines and devices
CPT/HCPCS: 36415; 70450; 70551; 71045; 80053; 81001; 82550; 82553; 82607; 82728; 82746; 82803; 82962; 83540; 83550; 84443; 84484; 85025; 85045; 85610; 85730; 93005; 93010; 95819; 96374; 99285; J3490; J8499

== ENCOUNTER 2020-10-08 12:32 | Inpatient (IN) | payer MEDICARE, OTHER ==
[2020-10-08 13:20] LABS: ABSOLUTE LYMPHOCYTES (AUTO) 0.5 10^3/uL (0.5-4.7); ABSOLUTE MONOCYTES (AUTO) 0.4 10^3/uL (0.1-1.4); ABSOLUTE NEUT (AUTO) 3.9 10^3/uL (1.7-8.2); BASOPHILS % (AUTO) 0.6 % (0-2); EOSINOPHILS % (AUTO) 0.5 % (0-6); HEMATOCRIT 33.4 % (36.0-47.0); HEMOGLOBIN 10.6 g/dL (12.0-15.5); LYMPHOCYTES % (AUTO) 10.9 % (13-45); MEAN CORPUSCULAR HEMOGLOBIN 29.4 pg (27.0-33.4); MEAN CORPUSCULAR HGB CONC 31.5 g/dL (32.0-36.0); MEAN CORPUSCULAR VOLUME 93 fl (80-97); MONOCYTES % (AUTO) 8.3 % (3-13); PLATELET COUNT 196 10^3/uL (150-450); RED BLOOD COUNT 3.59 10^6/uL (3.72-5.28); RED CELL DISTRIBUTION WIDTH 17.2 % (11.5-14.0); SEGMENTED NEUTROPHILS % (AUTO) 79.7 % (42-78); TOTAL CELLS COUNTED % (AUTO) 100 %; WHITE BLOOD COUNT 4.9 10^3/uL (4.0-10.5)
[2020-10-08 13:44] LABS: ALBUMIN 2.9 g/dL (3.5-5.0); ALKALINE PHOSPHATASE 82 U/L (38-126); ASPARTATE AMINO TRANSFERASE 22 U/L (14-36); BILIRUBIN,DIRECT 0.4 mg/dL (0.0-0.4); BILIRUBIN,TOTAL 0.7 mg/dL (0.2-1.3); BLOOD UREA NITROGEN 17 mg/dL (7-20); CALCIUM 8.5 mg/dL (8.4-10.2); CHLORIDE 95 mmol/L (98-107); GLUCOSE 105 mg/dL (75-110); POTASSIUM 4.2 mmol/L (3.6-5.0); TOTAL PROTEIN 6.2 g/dL (6.3-8.2)
[2020-10-08 13:51] LABS: CARBON DIOXIDE 39 mmol/L (22-30)
--- NOTE | 2020-10-08 13:52 | RADIOLOGY REPORT (SQ) ---
EXAM DESCRIPTION: CHEST SINGLE VIEW IMAGES COMPLETED DATE/TIME: 10/08/2020 1:43 pm REASON FOR STUDY: SOB COMPARISON: 08/24/2020. EXAM PARAMETERS: NUMBER OF VIEWS: One view. TECHNIQUE: Single frontal radiographic view of the chest acquired. RADIATION DOSE: NA LIMITATIONS: None. FINDINGS: LUNGS AND PLEURA: Indistinct airspace disease, left greater than right. Large left pleura l effusion. MEDIASTINUM AND HILAR STRUCTURES: No masses. Contour normal. HEART AND VASCULAR STRUCTURES: Cardiomegaly. BONES: No acute findings. HARDWARE: None in the chest. OTHER: No other significant finding. IMPRESSION: CARDIOMEGALY WITH LARGE LEFT PLEURAL EFFUSION. INDISTINCT AIRSPACE DISEASE PROBABLY DUE TO ASYMMETRIC PULMONARY EDEMA. CANNOT EXCLUDE INFECTIOUS ETIOLOGY. TECHNICAL DOCUMENTATION: JOB ID: [id number] 2010 [employer]- All Rights Reserved Reading location - IP/workstation name: [email or web address]
[2020-10-08 13:56] LABS: ANION GAP 4 (5-19)
[2020-10-08 14:34] LABS: NT PRO BNP 2120 pg/mL (<450)
[2020-10-08 14:36] LABS: TROPONIN I < 0.012 ng/mL
--- NOTE | 2020-10-08 16:10 | RADIOLOGY REPORT (SQ) ---
EXAM DESCRIPTION: CTA CHEST IMAGES COMPLETED DATE/TIME: 10/08/2020 3:53 pm REASON FOR STUDY: dyspnea/hypoxia COMPARISON: 03/22/2020. TECHNIQUE: CT scan of the chest performed using helical scanning technique with dynamic intravenous contrast injection. Images reviewed with lung, soft tissue and bone windows. Reconstructed coronal and sagittal MPR images reviewed. Additional 3 dimensional post-processing performed to develop Maximal Intensity Projection images (ME P). All images stored on PACS. All CT scanners at this facility use dose modulation, iterative reconstruction, and/or weight based d osing when appropriate to reduce radiation dose to as low as reasonably achievable (ALARA). [facility]: Dose Right [facility]: CareDose [facility]: Dose Right [facility]: Teradose 4D [facility]: AdMob CONTRAST TYPE AND DOSE: contrast/concentration: Isovue 350.00 mmol/ml; Total Contrast Delivered: 70. 0 ml; Total Saline Delivered: 66.5 ml Contrast bolus optimized for the pulmonary arteries. Not diagnostic for the aorta. RENAL FUNCTION: BUN 17 creatinine 0.44. RADIATION DOSE: CT Rad equipment meets quality standard of care and radiation dose reduction techniq ues were employed. CTDIvol: 19.8 - 25.8 mGy. DLP: 900 mGy-cm. . LIMITATIONS: None. FINDINGS: LUNGS AND PLEURA: Large left pleural effusion and moderate right pleural effusion. Compre ssive atelectasis in the lung bases. AORTA AND GREAT VESSELS: No aneurysm. Contrast bolus not optimized for the aorta. HEART: Cardiomegaly. No pericardial effusion. No significant coronary artery calcifications. PULMONARY ARTERIES: No emboli visualized in the main pulmonary arteries or the segmental branches. HILAR AND MEDIASTINAL STRUCTURES: No identified masses or abnormal nodes. HARDWARE: None in the chest. UPPER ABDOMEN: Lobular appearance of the kidneys. Limited exam. THYROID AND OTHER SOFT TISSUES: No masses. No adenopathy. BONES: No acute or significant finding. 3D MIPS: Confirm above findings. OTHER: No other significant finding. IMPRESSION: 1. NORMAL CTA OF THE CHEST. NO PULMONARY EMBOLI. 2. CARDIOMEGALY. LARGE LEFT PLEURAL EFFUSION AND MODERATE RIGHT PLEURAL EFFUSION. BASILAR ATELECTAS IS. COMMENT: Quality ID # [id number]: Final reports with documentation of one or more dose reduction techniques (e.g., Automated exposure control, adjustment of the mA and/or kV according to patient size, use of iterative reconstruction technique) TECHNICAL DOCUMENTATION: JOB ID: [id number] 2010 [employer]- All Rights Reserved Reading location - IP/workstation name: [email or web address]
--- NOTE | 2020-10-08 16:46 | ER Document Report ---
ED General - General Chief Complaint: Shortness Of Breath Stated Complaint: SHORTNESS OF BREATH Time Seen by Provider: 10/08/20 13:14 Primary Care Provider: NIKKI MCCULLOUGH MD [Primary Care Provider] - Follow up as needed Mode of Arrival: Medic Information source: Patient, Emergency Med Personnel TRAVEL OUTSIDE OF THE [place] IN LAST 30 DAYS: No - HPI Notes: Patient presents with shortness of breath. She is brought in by ambulance. She states she has had shortness of breath for several days. She states she has had no real cough or cold symptoms. She states she does have a history of COPD and has nebulizer and inhalers at home and has been using them but they have not helped. She denies any previous history of congestive heart failure. She states she does not use home oxygen. She denies any pain at this time. She has no exposure to anybody who has the Covid virus. - Related Data Allergies/Adverse Reactions: meperidine HCl [From Demerol] Allergy (Severe, Verified 10/08/20 13:23) Past Medical History - General Information source: Patient - Social History Smoking Status: Never Smoker Frequency of alcohol use: None Drug Abuse: None Family History: Reviewed & Not Pertinent - Past Medical History Cardiac Medical History: Reports: Hx Atrial Fibrillation, Hx Congestive Heart Failure, Hx Hypercholesterolemia, Hx Hypertension Denies: Hx Heart Attack Pulmonary Medical History: Reports: Hx Asthma, Hx COPD, Hx Sleep Apnea - doesn't use cpap Neurological Medical History: Denies: Hx Cerebrovascular Accident, Hx Seizures Endocrine Medical History: Reports: Hx Hypothyroidism Renal/ Medical History: Denies: Hx Peritoneal Dialysis GI Medical History: Reports: Hx Gastroesophageal Reflux Disease, Hx Hiatal Hernia. Denies: Hx Ulcer Musculoskeletal Medical History: Reports Hx Arthritis Psychiatric Medical History: Reports: Hx Dementia, Hx Depression Traumatic Medical History: Denies: Hx Gunshot Wound, Hx Pneumothorax Infectious Medical History: Denies: Hx C-Diff Past Surgical History: Reports: Hx Appendectomy, Hx Orthopedic Surgery - bilat knee, Hx Tonsillectomy, Hx Tubal Ligation. Denies: Hx Hysterectomy, Hx Open Heart Surgery - Immunizations Hx Diphtheria, Pertussis, Tetanus Vaccination: Yes Hx Pneumococcal Vaccination: 09/03/12 Review of Systems - Review of Systems Constitutional: denies: Chills, Fever Cardiovascular: denies: Chest pain, Palpitations Respiratory: Cough - mild, Short of breath -: Yes All other systems reviewed and negative Physical Exam - Vital signs Vitals: Pulse Ox 92 10/08/20 12:32 Interpretation: Normal - General General appearance: Appears well, Alert - HEENT Head: Normocephalic, Atraumatic Eyes: Normal Pupils: PERRL - Respiratory Respiratory status: Respiratory distress - mod Chest status: Nontender Breath sounds: Decreased air movement, Rales Chest palpation: Normal - Cardiovascular Rhythm: Regular Heart sounds: Normal auscultation Murmur: No - Abdominal Inspection: Normal Distension: No distension Bowel sounds: Normal Tenderness: Nontender Organomegaly: No organomegaly - Back Back: Normal, Nontender - Extremities General upper extremity: Normal inspection, Nontender, Normal color, Normal ROM, Normal temperature General lower extremity: Edema - 2+ bilaterally, Normal temperature. No: Teri's sign - Neurological Neuro grossly intact: Yes Cognition: Normal Orientation: AAOx4 [place] Coma Scale Eye Opening: Spontaneous [place] Coma Scale Verbal: Oriented [place] Coma Scale Motor: Obeys Commands [place] Coma Scale Total: 15 Speech: Normal - Psychological Associated symptoms: Normal affect, Normal mood - Skin Skin Temperature: Warm Skin Moisture: Dry Skin Color: Erythema Course - Re-evaluation Re-evalutation: 10/08/20 16:44 Patient brought in for shortness of breath. Imaging shows bilateral pleural effusions left greater than right. She also has some cardiomegaly. She has lower extremity edema as well. It appears patient obviously has some heart failure. No evidence of an infectious process at this time. I will give the patient a dose of diuretics. I have contact the patient's primary care physician who will see the patient in consultation. - Vital Signs Vital signs: Temp Pulse Resp BP Pulse Ox 97.6 F 98 10/08/20 13:18 10/08/20 13:20 - Laboratory Results Result Diagrams: 10/08/20 13:01 10/08/20 13:01 Laboratory Results Interpreted: 10/08/20 10/08/20 10/08/20 13:01 13:01 13:01 RBC 3.59 L Hgb 10.6 L Hct 33.4 L MCHC 31.5 L RDW 17.2 H Lymph % (Auto) 10.9 L Seg Neutrophils % 79.7 H Chloride 95 L Carbon Dioxide 39 H Anion Gap 4 L Creatinine 0.44 L NT-Pro-B Natriuret Pep 2120 H Total Protein 6.2 L Albumin 2.9 L Critical Laboratory Results Reviewed: No Critical Results - Radiology Results Critical Radiology Results Reviewed: Yes - EKG Interpretation by Me EKG shows normal: abnormal: Sinus rhythm Rate: Normal - 85 Rhythm: A.Fib, PVC's [place]/QRS: No: Right axis deviation, Left axis deviation Discharge - Discharge Clinical Impression: Chronic atrial fibrillation, Pleural effusion Acute CHF Qualifiers: Heart failure type: unspecified Qualified Code(s): I50.9 - Heart failure, unspecified Condition: Serious Disposition: ADMITTED INPATIENT Admitting Provider: [facility] Admitted: [facility] Referrals: NIKKI MCCULLOUGH MD [Primary Care Provider] - Follow up as needed
[2020-10-08 17:28] LABS: ARTERIAL BLOOD BASE EXCESS 12.5 mmol/L; ARTERIAL BLOOD FIO2 4L; ARTERIAL BLOOD H2CO3 1.91 mmol/L (1.05-1.35); ARTERIAL BLOOD HCO3 39.2 mmol/L (20-24); ARTERIAL BLOOD O2 SATURATION 82.6 % (94-98); ARTERIAL BLOOD PCO2 63.4 mmHg (35-45); ARTERIAL BLOOD PH 7.41 (7.35-7.45); ARTERIAL BLOOD PO2 47.9 mmHg (80-100); ARTERIAL BLOOD TOTAL CO2 41.1 mmol/L (21-25)
[2020-10-08] MEDS ORDERED: FUROSEMIDE INJ/PF 40 MG/4 ML SDV IV ONE (17:31)
--- NOTE | 2020-10-08 17:53 | EKG REPORT ---
SEVERITY:- ABNORMAL ECG - ATRIAL FIBRILLATION MULTIPLE VENTRICULAR PREMATURE COMPLEXES ANTERIOR INFARCT, AGE INDETERMINATE : Confirmed by: Juan Perera 08-Oct-2020 17:52:02
[2020-10-08 18:49] LABS: APPEARANCE,URINE CLEAR; BILIRUBIN,URINE NEGATIVE (NEGATIVE); COLOR,URINE YELLOW; GLUCOSE, URINE NEGATIVE (NEGATIVE); KETONES,URINE NEGATIVE (NEGATIVE); LEUKOCYTE ESTERASE,URINE SMALL (NEGATIVE); NITRITE,URINE NEGATIVE (NEGATIVE); PROTEIN,URINE NEGATIVE (NEGATIVE)
[2020-10-08 18:54] LABS: URINE SPECIFIC GRAVITY > 1.060
[2020-10-08] MEDS ORDERED: LEVALBUTEROL HCL NEB 0.63 MG/3 ML AMPUL NEB PRN (18:56)
--- NOTE | 2020-10-08 19:16 | PDOC H&P ---
History of Present Illness Admission Date/PCP: 10/08/20 17:38 NIKKI MCCULLOUGH MD History of Present Illness: GIUSEPPE RINCON is a 85 year old female She has multiple comorbid conditions in cluding chronic respiratory failure partly due to obesity hypoventilation syndrome, chronically on noninvasive positive pressure ventilation, Trelegy she has chronic diastolic heart failure, severe pulmonary hypertension.She came to the emergency room for evaluation of progressive shortness of breath, CT angiogram of the chest was obtained, demonstrated bilateral pleural effusion left more than right, There was no pulmonary embolus as expected patient is on chronic coagulation with Eliquis because of chronic atrial fibrillation.There was no exposure to SARS-CoV-2 infection, a rapid SARS-CoV-2 test was negative. There is associated bilateral lower extremity edema Past Medical History Cardiac Medical History: Reports: Atrial Fibrillation, Congestive Heart Failure, Hyperlipidema, Hypertension Pulmonary Medical History: Reports: Asthma, Chronic Obstructive Pulmonary Disease (COPD), Pneumonia Endocrine Medical History: Reports: Hypothyroidism GI Medical History: Reports: Gastroesophageal Reflux Disease, Hiatal Hernia Musculoskeltal Medical History: Reports: Arthritis Psychiatric Medical History: Reports: Dementia, Depression Past Surgical History Past Surgical History: Reports: Appendectomy, Orthopedic Surgery - bilat knee, Tonsillectomy, Tubal Ligation Social History Smoking Status: Never Smoker Frequency of Alcohol Use: None Hx Recreational Drug Use: No Drugs: None Hx Prescription Drug Abuse: No Family History Family History: Reviewed & Not Pertinent Parental Family History Reviewed: Yes Children Family History Reviewed: Yes Sibling(s) Family History Reviewed.: Yes Medication/Allergy Home Medications: Atorvastatin Calcium [Lipitor 40 mg Tablet] 40 mg PO QHS 12/03/17 Sertraline HCl [Zoloft] 50 mg PO DAILY 12/03/17 Metoprolol Succinate [Toprol Xl 50 mg Tab.sr] 200 mg PO QHS 03/22/19 Tramadol HCl [Ultram 50 mg Tablet] 50 mg PO Q6HP PRN #120 tablet 03/25/19 Alprazolam 0.5 mg PO DAILYP PRN 03/21/20 Levothyroxine Sodium [Levoxyl] 112 mcg PO Q6AM 03/21/20 Losartan Potassium 50 mg PO DAILY 03/21/20 Memantine HCl/Donepezil HCl [Namzaric 28 mg-10 mg Capsule] 1 cap PO QHS 03/21/20 Apixaban [Eliquis 5 mg Tablet] 5 mg PO Q12 08/04/20 Aripiprazole [Abilify 2 mg Tablet] 2 mg PO DAILY 08/25/20 Furosemide [Lasix 40 mg Tablet] 40 mg PO DAILY 08/25/20 Allergies/Adverse Reactions: meperidine HCl [From Demerol] Allergy (Severe, Verified 10/08/20 13:23) Review of Systems Constitutional: ABSENT: chills, fever(s), headache(s), weight gain, weight loss Eyes: ABSENT: visual disturbances Ears: ABSENT: hearing changes Cardiovascular: PRESENT: dyspnea on exertion, edema, palpitations Respiratory: PRESENT: dyspnea. ABSENT: cough, hemoptysis Gastrointestinal: ABSENT: abdominal pain, constipation, diarrhea, hematemesis, hematochezia, nausea, vomiting Genitourinary: ABSENT: dysuria, hematuria Musculoskeletal: ABSENT: joint swelling Integumentary: ABSENT: rash, wounds Neurological: ABSENT: abnormal gait, abnormal speech, confusion, dizziness, focal weakness, syncope Psychiatric: ABSENT: anxiety, depression, homidical ideation, suicidal ideation Endocrine: ABSENT: cold intolerance, heat intolerance, menstrual abnormalities, polydipsia, polyuria Hematologic/Lymphatic: ABSENT: easy bleeding, easy bruising, lymphadenopathy Physical Exam Vital Signs: Temp Pulse Resp BP Pulse Ox 97.8 F 27 H 149/97 H 92 10/08/20 15:24 10/08/20 18:07 10/08/20 18:07 10/08/20 18:06 Intake & Output 10/07/20 10/08/20 10/09/20 06:59 06:59 06:59 Weight 105 kg General appearance: PRESENT: mild distress Head exam: PRESENT: atraumatic, normocephalic Eye exam: PRESENT: conjunctiva pink, EOMI, PERRLA Ear exam: PRESENT: normal external ear exam Mouth exam: PRESENT: moist, tongue midline Neck exam: PRESENT: full ROM Respiratory exam: PRESENT: decreased breath sounds Cardiovascular exam: PRESENT: RRR, +S1, +S2. ABSENT: diastolic murmur, rubs, systolic murmur Pulses: PRESENT: normal dorsalis pedis pul, +2 pedal pulses bilateral Vascular exam: PRESENT: normal capillary refill GI/Abdominal exam: PRESENT: normal bowel sounds, soft. ABSENT: distended, guarding, mass, organolmegaly, rebound, tenderness Rectal exam: PRESENT: deferred Extremities exam: PRESENT: pedal edema Neurological exam: PRESENT: alert, awake, oriented to person, oriented to place, oriented to time, oriented to situation, CN II-XII grossly intact Psychiatric exam: PRESENT: appropriate affect, normal mood Skin exam: PRESENT: dry, intact, warm Results Laboratory Results: 10/08/20 13:01 10/08/20 13:01 10/08/20 10/08/20 10/08/20 13:01 13:01 15:20 WBC 4.9 RBC 3.59 L Hgb 10.6 L Hct 33.4 L MCV 93 MCH 29.4 MCHC 31.5 L RDW 17.2 H Plt Count 196 Seg Neutrophils % 79.7 H Carbonic Acid 1.91 H HCO3/H2CO3 Ratio 20:1 ABG pH 7.41 ABG pCO2 63.4 H ABG pO2 47.9 L ABG HCO3 39.2 H ABG O2 Saturation 82.6 L ABG Base Excess 12.5 FiO2 4L Sodium 137.5 Potassium 4.2 Chloride 95 L Carbon Dioxide 39 H Anion Gap 4 L BUN 17 Creatinine 0.44 L Est GFR ( Amer) > 60 Glucose 105 Calcium 8.5 Total Bilirubin 0.7 AST 22 Alkaline Phosphatase 82 Total Protein 6.2 L Albumin 2.9 L Urine Color Urine Appearance Urine pH Ur Specific [place] Urine Protein Urine Glucose (UA) Urine Ketones Urine Blood Urine Nitrite Ur Leukocyte Esterase Urine WBC (Auto) Urine RBC (Auto) 10/08/20 17:54 WBC RBC Hgb Hct MCV MCH MCHC RDW Plt Count Seg Neutrophils % Carbonic Acid HCO3/H2CO3 Ratio ABG pH ABG pCO2 ABG pO2 ABG HCO3 ABG O2 Saturation ABG Base Excess FiO2 Sodium Potassium Chloride Carbon Dioxide Anion Gap BUN Creatinine Est GFR ( Amer) Glucose Calcium Total Bilirubin AST Alkaline Phosphatase Total Protein Albumin Urine Color YELLOW Urine Appearance CLEAR Urine pH 5.0 Ur Specific [place] > 1.060 Urine Protein NEGATIVE Urine Glucose (UA) NEGATIVE Urine Ketones NEGATIVE Urine Blood NEGATIVE Urine Nitrite NEGATIVE Ur Leukocyte Esterase SMALL H Urine WBC (Auto) 30 Urine RBC (Auto) 4 10/08/20 13:01 Troponin I < 0.012 NT-Pro-B Natriuret Pep 2120 H Impressions: Chest X-Ray 10/08/20 12:41 IMPRESSION: CARDIOMEGALY WITH LARGE LEFT PLEURAL EFFUSION. INDISTINCT AIRSPACE DISEASE PROBABLY DUE TO ASYMMETRIC PULMONARY EDEMA. CANNOT EXCLUDE INFECTIOUS ETIOLOGY. Chest/Abdomen CTA 10/08/20 14:06 IMPRESSION: 1. NORMAL CTA OF THE CHEST. NO PULMONARY EMBOLI. 2. CARDIOMEGALY. LARGE LEFT PLEURAL EFFUSION AND MODERATE RIGHT PLEURAL EFF USION. BASILAR ATELECTASIS. Assessment & Plan - Diagnosis (1) Acute diastolic heart failure Is this a current diagnosis for this admission?: Yes Plan: Patient presentation is more consistent with heart failure, She has elevated B- type natruretic peptide, a transthoracic echocardiogram was done on March 21, 2020, this study demonstrated estimated ejection fraction of left ventricle more than 60% the diastolic function of the left ventricle could not be assessed because of the chronic atrial fibrillation she has dilated chambers including left atrium ,left ventricle ,right ventricle. she has a moderate pulmonary hypertension. She will undergo thoracentesis in the morning to improve symptoms of this patient (2) Acute hypoxemic respiratory failure Is this a current diagnosis for this admission?: Yes Plan: She has acute hypoxemic Respiratory failure due to CHF (3) Permanent atrial fibrillation Is this a current diagnosis for this admission?: Yes Plan: Continue anticoagulation with Eliquis (4) Morbid obesity due to excess calories Is this a current diagnosis for this admission?: Yes - Time Time Spent: Greater than 70 Minutes Medications reviewed and adjusted accordingly: Yes Anticipated Discharge Disposition: Home, Self Care Anticipated Discharge Timeframe: 7 days - Inpatient Certification Based on my medical assessment, after consideration of the patient's comorbidities, presenting symptoms, or acuity I expect that the services needed warrant INPATIENT care.: Yes I certify that my determination is in accordance with my understanding of Medicare's requirements for reasonable and necessary INPATIENT services [42 CFR 412.3e].: Yes
[2020-10-08 20:22] LABS: APPEARANCE,URINE CLEAR; BILIRUBIN,URINE NEGATIVE (NEGATIVE); COLOR,URINE STRAW; GLUCOSE, URINE NEGATIVE (NEGATIVE); KETONES,URINE NEGATIVE (NEGATIVE); LEUKOCYTE ESTERASE,URINE TRACE (NEGATIVE); NITRITE,URINE NEGATIVE (NEGATIVE); PROTEIN,URINE NEGATIVE (NEGATIVE); URINE SPECIFIC GRAVITY 1.017; UROBILINOGEN,URINE NEGATIVE mg/dL (<2.0)
[2020-10-08 21:21] LABS: INTERNATIONAL RATION (INR) 1.55; PROTHROMBIN TIME 18.7 SEC (11.4-15.4)
[2020-10-08 21:23] LABS: FIBRINOGEN 520 mg/dL (209-497); PARTIAL THROMBOPLASTIN TIME 46.8 SEC (23.5-35.8)
[2020-10-08 21:41] LABS: D-DIMER 5.03 ug/mL (0.00-0.50)
[2020-10-08 21:43] LABS: C-REACTIVE PROTEIN 68.7 mg/L (<10.0)
[2020-10-08 21:56] LABS: FREE T4 (FREE THYROXINE) 1.81 ng/dL (0.78-2.19)
[2020-10-08 21:59] LABS: CREATINE KINASE MB 0.4 ng/mL (<4.55)
[2020-10-08 22:04] LABS: TROPONIN I 0.02 ng/mL
[2020-10-08 22:10] LABS: THYROID STIMULATING HORMONE 4.51 uIU/mL (0.47-4.68)
[2020-10-08 22:16] LABS: CREATINE KINASE < 20 U/L (30-135)
[2020-10-09 03:22] LABS: ABSOLUTE LYMPHOCYTES (AUTO) 0.4 10^3/uL (0.5-4.7); ABSOLUTE MONOCYTES (AUTO) 0.5 10^3/uL (0.1-1.4); ABSOLUTE NEUT (AUTO) 2.6 10^3/uL (1.7-8.2); BASOPHILS % (AUTO) 0.8 % (0-2); EOSINOPHILS % (AUTO) 0.9 % (0-6); HEMATOCRIT 31.9 % (36.0-47.0); HEMOGLOBIN 10.1 g/dL (12.0-15.5); LYMPHOCYTES % (AUTO) 11.6 % (13-45); MEAN CORPUSCULAR HEMOGLOBIN 29.3 pg (27.0-33.4); MEAN CORPUSCULAR HGB CONC 31.7 g/dL (32.0-36.0); MEAN CORPUSCULAR VOLUME 92 fl (80-97); MONOCYTES % (AUTO) 12.9 % (3-13); PLATELET COUNT 180 10^3/uL (150-450); RED BLOOD COUNT 3.46 10^6/uL (3.72-5.28); RED CELL DISTRIBUTION WIDTH 16.7 % (11.5-14.0); SEGMENTED NEUTROPHILS % (AUTO) 73.8 % (42-78); TOTAL CELLS COUNTED % (AUTO) 100 %; WHITE BLOOD COUNT 3.6 10^3/uL (4.0-10.5)
[2020-10-09 03:32] LABS: ALBUMIN 2.7 g/dL (3.5-5.0); ALKALINE PHOSPHATASE 70 U/L (38-126); ASPARTATE AMINO TRANSFERASE 22 U/L (14-36); BILIRUBIN,DIRECT 0.3 mg/dL (0.0-0.4); BILIRUBIN,TOTAL 0.7 mg/dL (0.2-1.3); BLOOD UREA NITROGEN 15 mg/dL (7-20); CALCIUM 8.5 mg/dL (8.4-10.2); CHLORIDE 93 mmol/L (98-107); CHOLESTEROL 112.26 mg/dL (0-200); GLUCOSE 87 mg/dL (75-110); POTASSIUM 3.9 mmol/L (3.6-5.0); TOTAL PROTEIN 5.9 g/dL (6.3-8.2); TRIGLYCERIDES 91 mg/dL (<150)
[2020-10-09 03:43] LABS: CREATINE KINASE < 20 U/L (30-135); DIRECT LDL 31 mg/dL (<100)
[2020-10-09 03:44] LABS: CREATINE KINASE MB 0.42 ng/mL (<4.55); TROPONIN I 0.019 ng/mL
[2020-10-09 03:48] LABS: VLDL CHOLESTEROL 18.2 mg/dL (10-31)
[2020-10-09 03:50] LABS: CARBON DIOXIDE 42 mmol/L (22-30)
[2020-10-09 04:02] LABS: ANION GAP 4 (5-19)
[2020-10-09] MEDS: FUROSEMIDE INJ/PF 40 MG/4 ML SDV IV SCH ×2 (06:02→17:36)
[2020-10-09 09:15] LABS: PROTHROMBIN TIME 17.3 SEC (11.4-15.4)
[2020-10-09 09:55] LABS: CREATINE KINASE MB 0.47 ng/mL (<4.55); TROPONIN I 0.014 ng/mL
[2020-10-09] MEDS: APIXABAN 5 MG TABLET PO SCH ×2 (10:25→17:36)
--- NOTE | 2020-10-09 14:22 | RADIOLOGY REPORT (SQ) ---
EXAM DESCRIPTION: CHEST SINGLE VIEW IMAGES COMPLETED DATE/TIME: 10/09/2020 2:10 pm REASON FOR STUDY: S/P LT THORA COMPARISON: 10/08/2020 EXAM PARAMETERS: NUMBER OF VIEWS: One view. TECHNIQUE: Single frontal radiographic view of the chest acquired. RADIATION DOSE: NA LIMITATIONS: None. FINDINGS: LUNGS AND PLEURA: No pneumothorax post left thoracentesis. Decreased size of the pleural effusion with mild residual effusion and basilar atelectasis. Small right effusion. MEDIASTINUM AND HILAR STRUCTURES: No masses. Contour normal. HEART AND VASCULAR STRUCTURES: Enlarged cardiac silhouette with vascular calcifications. BONES: No acute findings. HARDWARE: None in the chest. OTHER: No other significant finding. IMPRESSION: No pneumothorax post left thoracentesis. Decreased size of the pleural effusion with sm all residual effusion and basilar atelectasis. Stable enlarged cardiac silhouette. TECHNICAL DOCUMENTATION: JOB ID: [id number] 2010 [employer]- All Rights Reserved Reading location - IP/workstation name: [email or web address]
--- NOTE | 2020-10-09 14:48 | RADIOLOGY REPORT (SQ) ---
EXAM DESCRIPTION: U/S THORACENTESIS WITH IMAGING IMAGES COMPLETED DATE/TIME: 10/09/2020 2:10 pm REASON FOR STUDY: bilatreal pleural effusion eral pleural effusion COMPARISON: None. RADIATION DOSE: None LIMITATIONS: None. PROCEDURE: Procedure, risks, benefit, and alternative explained to patient who then gave written con sent. The posterior left chest wall was marked using ultrasound guidance. A time-out was called for correct marking verification. Chest prepped and draped using sterile technique. Local anesthesia ac hieved using 8 ml of 1% lidocaine injection. A 6fr Safe-T- Centesis set was introduced into the left pleural space. Fluid was aspirated. The catheter was removed and the entry site was covered with s terile bandage. No immediate complications noted. Images acquired during the procedure were stored on PACS. FINDINGS: ENTRY SITE: posterior left chest. FLUID VOLUME: 1000 mL FLUID ANALYSIS: Serosanguineous fluid OTHER: Fluid sent to the lab for testing. IMPRESSION: SUCCESSFUL THORACENTESIS USING ULTRASOUND GUIDANCE. COMMENT: Patient medication list reviewed: Yes- Quality ID# [id number]:Eligible professional attests to doc umenting in the medical record they obtained, updated, or reviewed the patient's current medications. TECHNICAL DOCUMENTATION: JOB ID: [id number] 2010 [employer]- All Rights Reserved Reading location - IP/workstation name: [email or web address] [id number]
--- NOTE | 2020-10-09 15:36 | PDOC PROGRESS REPORT ---
Subjective Date:: 10/09/20 Subjective:: Patient seen by the bedside she had paracentesis done today, a liter of fluid wa s collected, patient feels better Reason For Visit: CHF, AFIB Physical Exam Vital Signs: Temp Pulse Resp BP Pulse Ox 98.3 F 97 19 121/91 H 98 10/09/20 11:22 10/09/20 14:00 10/09/20 11:22 10/09/20 11:22 10/09/20 11:22 Intake & Output 10/08/20 10/09/20 10/10/20 06:59 06:59 06:59 Intake Total 120 Output Total 2150 Balance -2149 120 Weight 105 kg General appearance: PRESENT: no acute distress Eye exam: PRESENT: PERRLA Respiratory exam: PRESENT: clear to auscultation mary Cardiovascular exam: PRESENT: irregular rhythm, +S1, +S2 GI/Abdominal exam: PRESENT: soft Neurological exam: PRESENT: alert, CN II-XII grossly intact Results Laboratory Results: 10/09/20 03:08 10/09/20 03:08 10/08/20 10/08/20 10/08/20 15:20 17:54 19:43 WBC RBC Hgb Hct MCV MCH MCHC RDW Plt Count Seg Neutrophils % Carbonic Acid 1.91 H HCO3/H2CO3 Ratio 20:1 ABG pH 7.41 ABG pCO2 63.4 H ABG pO2 47.9 L ABG HCO3 39.2 H ABG O2 Saturation 82.6 L ABG Base Excess 12.5 FiO2 4L Sodium Potassium Chloride Carbon Dioxide Anion Gap BUN Creatinine Est GFR ( Amer) Glucose Calcium Magnesium Ferritin Total Bilirubin AST Alkaline Phosphatase C-Reactive Protein Total Protein Albumin Triglycerides Cholesterol LDL Cholesterol Direct VLDL Cholesterol HDL Cholesterol TSH Free T4 Urine Color YELLOW STRAW Urine Appearance CLEAR CLEAR Urine pH 5.0 6.0 Ur Specific [place] > 1.060 1.017 Urine Protein NEGATIVE NEGATIVE Urine Glucose (UA) NEGATIVE NEGATIVE Urine Ketones NEGATIVE NEGATIVE Urine Blood NEGATIVE NEGATIVE Urine Nitrite NEGATIVE NEGATIVE Ur Leukocyte Esterase SMALL H TRACE H Urine WBC (Auto) 30 9 Urine RBC (Auto) 4 1 10/08/20 10/08/20 10/09/20 20:55 20:55 03:08 WBC 3.6 L RBC 3.46 L Hgb 10.1 L Hct 31.9 L MCV 92 MCH 29.3 MCHC 31.7 L RDW 16.7 H Plt Count 180 Seg Neutrophils % 73.8 Carbonic Acid HCO3/H2CO3 Ratio ABG pH ABG pCO2 ABG pO2 ABG HCO3 ABG O2 Saturation ABG Base Excess FiO2 Sodium Potassium Chloride Carbon Dioxide Anion Gap BUN Creatinine Est GFR ( Amer) Glucose Calcium Magnesium 1.5 L Ferritin 188.00 Total Bilirubin AST Alkaline Phosphatase C-Reactive Protein 68.7 H Total Protein 6.0 L Albumin Triglycerides Cholesterol LDL Cholesterol Direct VLDL Cholesterol HDL Cholesterol TSH 4.51 Free T4 1.81 Urine Color Urine Appearance Urine pH Ur Specific [place] Urine Protein Urine Glucose (UA) Urine Ketones Urine Blood Urine Nitrite Ur Leukocyte Esterase Urine WBC (Auto) Urine RBC (Auto) 10/09/20 03:08 WBC RBC Hgb Hct MCV MCH MCHC RDW Plt Count Seg Neutrophils % Carbonic Acid HCO3/H2CO3 Ratio ABG pH ABG pCO2 ABG pO2 ABG HCO3 ABG O2 Saturation ABG Base Excess FiO2 Sodium 138.9 Potassium 3.9 Chloride 93 L Carbon Dioxide 42 H* Anion Gap 4 L BUN 15 Creatinine 0.44 L Est GFR ( Amer) > 60 Glucose 87 Calcium 8.5 Magnesium Ferritin Total Bilirubin 0.7 AST 22 Alkaline Phosphatase 70 C-Reactive Protein Total Protein 5.9 L Albumin 2.7 L Triglycerides 91 Cholesterol 112.26 LDL Cholesterol Direct 31 VLDL Cholesterol 18.2 HDL Cholesterol 52 TSH Free T4 Urine Color Urine Appearance Urine pH Ur Specific [place] Urine Protein Urine Glucose (UA) Urine Ketones Urine Blood Urine Nitrite Ur Leukocyte Esterase Urine WBC (Auto) Urine RBC (Auto) 10/08/20 10/08/20 10/08/20 13:01 20:37 20:55 Creatine Kinase < 20 L CK-MB (CK-2) 0.40 Troponin I < 0.012 0.020 NT-Pro-B Natriuret Pep 2120 H 10/09/20 10/09/20 10/09/20 03:08 03:08 08:53 Creatine Kinase < 20 L < 20 L CK-MB (CK-2) 0.42 Troponin I 0.019 NT-Pro-B Natriuret Pep 10/09/20 08:53 Creatine Kinase CK-MB (CK-2) 0.47 Troponin I 0.014 NT-Pro-B Natriuret Pep Impressions: Chest/Abdomen CTA 10/08/20 14:06 IMPRESSION: 1. NORMAL CTA OF THE CHEST. NO PULMONARY EMBOLI. 2. CARDIOMEGALY. LARGE LEFT PLEURAL EFFUSION AND MODERATE RIGHT PLEURAL E FFUSION. BASILAR ATELECTASIS. Thoracentesis Ultrasound 10/09/20 00:00 IMPRESSION: SUCCESSFUL THORACENTESIS USING ULTRASOUND GUIDANCE. Chest X-Ray 10/09/20 14:00 IMPRESSION: No pneumothorax post left thoracentesis. Decreased size of the pleural effusion with small residual effusion and basilar atelectasis. Stable enlarged cardiac silhouette. Assessment & Plan - Diagnosis (1) Acute hypoxemic respiratory failure Is this a current diagnosis for this admission?: Yes Plan: Continue oxygen supplementation via nasal cannula (2) Acute diastolic heart failure Is this a current diagnosis for this admission?: Yes Plan: Continue diuretic treatment (3) Permanent atrial fibrillation Is this a current diagnosis for this admission?: Yes (4) Morbid obesity due to excess calories Is this a current diagnosis for this admission?: Yes - Time Time Spent with patient: 25-34 minutes Level of Care: IMCU Anticipated discharge: Home - Inpatient Certification Based on my medical assessment, after consideration of the patient's comorbidities, presenting symptoms, or acuity I expect that the services needed warrant INPATIENT care.: Yes I certify that my determination is in accordance with my understanding of Medicare's requirements for reasonable and necessary INPATIENT services [42 CFR 412.3e].: Yes
--- NOTE | 2020-10-09 16:24 | RADIOLOGY REPORT (SQ) ---
EXAM DESCRIPTION: CHEST SINGLE VIEW IMAGES COMPLETED DATE/TIME: 10/09/2020 4:12 pm REASON FOR STUDY: 2 HOURS S/P LT THORA COMPARISON: Same day radiograph EXAM PARAMETERS: NUMBER OF VIEWS: One view. TECHNIQUE: Single frontal radiographic view of the chest acquired. RADIATION DOSE: NA LIMITATIONS: None. FINDINGS: LUNGS AND PLEURA: No pneumothorax post left thoracentesis. Stable small left effusion and basilar atelectasis. MEDIASTINUM AND HILAR STRUCTURES: Stable. HEART AND VASCULAR STRUCTURES: Stable. BONES: No acute findings. HARDWARE: None in the chest. OTHER: No other significant finding. IMPRESSION: No pneumothorax post left thoracentesis. Stable small left effusion basilar atelectasis . TECHNICAL DOCUMENTATION: JOB ID: [id number] 2010 [employer]- All Rights Reserved Reading location - IP/workstation name: [email or web address]
[2020-10-09 16:27] LABS: FLUID APPEARANCE CLOUDY; FLUID COLOR RED; FLUID SOURCE LUNG; FLUID TYPE PLEURAL; FLUID VISCOSITY LIQUID
[2020-10-09] MEDS ORDERED: ALPRAZOLAM 1 MG PO PRN (18:41)
[2020-10-09] MEDS ORDERED: ALPRAZOLAM 0.5 MG TABLET PO PRN (18:45)
[2020-10-09] MEDS ORDERED: SERTRALINE HCL 25 MG PO SCH (18:45)
[2020-10-09] MEDS ORDERED: APIXABAN 5 MG TABLET PO SCH (18:45)
--- NOTE | 2020-10-09 18:56 | EKG REPORT ---
SEVERITY:- ABNORMAL ECG - ATRIAL FIBRILLATION, V-RATE 67-90 PAIRED VENTRICULAR PREMATURE COMPLEXES LOW VOLTAGE IN FRONTAL LEADS BORDERLINE R WAVE PROGRESSION, ANTERIOR LEADS NONSPECIFIC T ABNORMALITIES, ANT-LAT LEADS : Confirmed by: Juan Perera 09-Oct-2020 18:54:47
[2020-10-09] MEDS: LOSARTAN POTASSIUM 50 MG TABLET PO SCH (19:53)
[2020-10-09] MEDS: ARIPIPRAZOLE 2 MG TABLET PO SCH (19:54)
[2020-10-09] MEDS: SERTRALINE HCL 50 MG TABLET PO SCH (19:54)
[2020-10-09] MEDS ORDERED: [UNRECOGNIZED DRUG - OTHER] PO SCH (22:00)
[2020-10-09] MEDS ORDERED: DONEPEZIL HCL PO SCH (22:00)
[2020-10-09] MEDS ORDERED: MEMANTINE HCL PO SCH (22:00)
--- NOTE | 2020-10-09 22:19 | XCELERA REPORT ---
[address] [address] Transthoracic Echocardiogram Report Name: GIUSEPPE RINCON Age: 85 yrs Gender: Female : 1935 Patient Status: Inpatient Patient Location: [address] Study Date: 10/08/2020 08:28 PM Height: 67 in Procedure: A two-dimensional transthoracic echocardiogram with color flow and Doppler was performed. Study Quality: Poor. Reason For Study: chf History: CHF. Ordering Physician: NIKKI MCCULLOUGH Performed By: Anita Morillo Interpretation Summary The left ventricle is normal in size. There is normal left ventricular wall thickness. LV EF is 60% Left ventricular systolic function is normal. LV diastolic function could not be adequately assessed. The left ventricular wall motion is normal. Probably no clotts and probaably no ASD ,VSD,or PFO. The right ventricle is not well visualized secondary to technical limitations Probably enlargged RV. The right atrium is moderately dilated. The left atrium is severely dilated. There is no evidence of mitral valve prolapse. There is no vegetation seen on the mitral valve. There is no mitral valve stenosis. There is a mild to moderate amount of mitral regurgitation There is no aortic valvular vegetation. There is aortic sclerosis without aortic stenosis. There is a trace to mild amount of aortic regurgitation There is no tricuspid stenosis. There is a mild to moderate amount of tricuspid regurgitation There is mild to moderate pulmonary hypertension by echo RVSP is 45 to 50 mm of Hg , with RA mean of 15 to 20. The pulmonic valve is not well visualized. The aortic root is not well visualized. The inferior vena cava appeared dilated and decreased < 50% with respiration (RAP 15-20 mmHg) There is no pericardial effusion. Large left pleural effusion. MMode/2D Measurements & Calculations RVDd: 3.8 cm LVIDd: 4.6 cm FS: 18.3 % Ao root diam: 3.0 cm IVSd: 1.5 cm LVIDs: 3.7 cm EDV(Teich): 95.5 ml LVPWd: 1.1 cm ESV(Teich): 59.2 ml Ao root area: 7.2 cm2 EF(Teich): 38.1 % LA dimension: 5.7 cm Doppler Measurements & Calculations MV E max abdullahi: MV P1/2t max abdullahi: Ao V2 max: AI max abdullahi: 122.5 cm/sec 121.6 cm/sec 135.7 cm/sec 406.1 cm/sec MV A max abdullahi: MV P1/2t: 50.2 msec Ao max PG: AI max P.7 cm/sec 7.4 mmHg 66.0 mmHg MV E/A: 4.0 MVA(P1/2t): 4.4 cm2 AI dec slope: MV dec slope: 710.1 cm/sec2 299.1 cm/sec2 MV dec time: 0.18 sec AI P1/2t: 397.8 msec LV V1 max PG: PA V2 max: TR max abdullahi: AV P1/2t-pr_phl: 3.1 mmHg 66.0 cm/sec 280.2 cm/sec 397.8 msec LV V1 max: PA max P.7 mmHg TR max P.9 cm/sec 31.4 mmHg MV P1/2t-pr_phl: 50.2 msec Left Ventricle The left ventricle is normal in size. There is normal left ventricular wall thickness. LV EF is 60%. Left ventricular systolic function is normal. LV diastolic function could not be adequately assessed. The left ventricular wall motion is normal. Probably no clotts and probaably no ASD ,VSD,or PFO. Right Ventricle The right ventricle is not well visualized secondary to technical limitations. Probably enlargged RV. Atria The right atrium is moderately dilated. The left atrium is severely dilated. Mitral Valve There is no evidence of mitral valve prolapse. There is no vegetation seen on the mitral valve. There is no mitral valve stenosis. There is a mild to moderate amount of mitral regurgitation. Aortic Valve There is no aortic valvular vegetation. There is aortic sclerosis without aortic stenosis. There is a trace to mild amount of aortic regurgitation. Tricuspid Valve There is no tricuspid stenosis. There is a mild to moderate amount of tricuspid regurgitation. There is mild to moderate pulmonary hypertension by echo. RVSP is 45 to 50 mm of Hg , with RA mean of 15 to 20. Pulmonic Valve The pulmonic valve is not well visualized. Great Vessels The aortic root is not well visualized. The inferior vena cava appeared dilated and decreased < 50% with respiration (RAP 15-20 mmHg). Effusions There is no pericardial effusion. Large left pleural effusion. : NIKKI MCCULLOUGH Lakshmi
[2020-10-09] MEDS: ATORVASTATIN CALCIUM 40 MG TABLET PO SCH (22:42)
[2020-10-09] MEDS: METOPROLOL SUCCINATE 50 MG TAB.SR.24H PO SCH (22:42)
[2020-10-10] MEDS: TRAMADOL HCL 50 MG TABLET PO PRN ×2 (01:47→23:58)
[2020-10-10] MEDS: FUROSEMIDE INJ/PF 40 MG/4 ML SDV IV SCH ×2 (06:18→17:39)
[2020-10-10] MEDS: LEVOTHYROXINE SODIUM 0.112 MG TABLET PO SCH (06:18)
[2020-10-10 06:20] LABS: ABSOLUTE LYMPHOCYTES (AUTO) 0.7 10^3/uL (0.5-4.7); ABSOLUTE MONOCYTES (AUTO) 0.4 10^3/uL (0.1-1.4); ABSOLUTE NEUT (AUTO) 2.6 10^3/uL (1.7-8.2); BASOPHILS % (AUTO) 0.5 % (0-2); EOSINOPHILS % (AUTO) 1.2 % (0-6); HEMATOCRIT 27.9 % (36.0-47.0); HEMOGLOBIN 9.2 g/dL (12.0-15.5); LYMPHOCYTES % (AUTO) 18.6 % (13-45); MEAN CORPUSCULAR HEMOGLOBIN 29.9 pg (27.0-33.4); MEAN CORPUSCULAR HGB CONC 32.9 g/dL (32.0-36.0); MEAN CORPUSCULAR VOLUME 91 fl (80-97); MONOCYTES % (AUTO) 10.7 % (3-13); PLATELET COUNT 169 10^3/uL (150-450); RED BLOOD COUNT 3.08 10^6/uL (3.72-5.28); RED CELL DISTRIBUTION WIDTH 16.6 % (11.5-14.0); TOTAL CELLS COUNTED % (AUTO) 100 %; WHITE BLOOD COUNT 3.8 10^3/uL (4.0-10.5)
[2020-10-10 06:43] LABS: ALBUMIN 2.2 g/dL (3.5-5.0); ALKALINE PHOSPHATASE 60 U/L (38-126); ASPARTATE AMINO TRANSFERASE 19 U/L (14-36); BILIRUBIN,DIRECT 0.1 mg/dL (0.0-0.4); BILIRUBIN,TOTAL 0.5 mg/dL (0.2-1.3); BLOOD UREA NITROGEN 17 mg/dL (7-20); CALCIUM 7.8 mg/dL (8.4-10.2); CHLORIDE 89 mmol/L (98-107); GLUCOSE 81 mg/dL (75-110); POTASSIUM 3.1 mmol/L (3.6-5.0); TOTAL PROTEIN 4.9 g/dL (6.3-8.2)
[2020-10-10 06:49] LABS: CREATINE KINASE < 20 U/L (30-135)
[2020-10-10 06:55] LABS: ANION GAP 0 (5-19); CARBON DIOXIDE 46 mmol/L (22-30)
[2020-10-10] MEDS: POTASSI CL 20 MEQ/50 ML RIDER 20 MEQ/50 ML RTUPB IV SCH ×2 (08:30→09:57)
[2020-10-10] MEDS: ARIPIPRAZOLE 2 MG TABLET PO SCH (09:55)
[2020-10-10] MEDS: APIXABAN 5 MG TABLET PO SCH ×2 (09:55→17:39)
[2020-10-10] MEDS: LOSARTAN POTASSIUM 50 MG TABLET PO SCH (09:55)
[2020-10-10] MEDS: SERTRALINE HCL 50 MG TABLET PO SCH (09:55)
--- NOTE | 2020-10-10 19:32 | PDOC PROGRESS REPORT ---
Subjective Date:: 10/10/20 Subjective:: Patient is alert she is improved, Reason For Visit: CHF, AFIB Physical Exam Vital Signs: Temp Pulse Resp BP Pulse Ox 98.7 F 74 20 103/55 L 95 10/10/20 12:00 10/10/20 14:00 10/10/20 12:00 10/10/20 12:00 10/10/20 12:00 Intake & Output 10/09/20 10/10/20 10/11/20 06:59 06:59 06:59 Intake Total 570 626 Output Total 2150 1050 850 Balance -2150 -480 -224 Weight 105 kg 103.7 kg General appearance: PRESENT: no acute distress Head exam: PRESENT: atraumatic, normocephalic Eye exam: PRESENT: PERRLA Mouth exam: PRESENT: moist, tongue midline Neck exam: PRESENT: full ROM Respiratory exam: PRESENT: clear to auscultation mary Cardiovascular exam: PRESENT: RRR, +S1, +S2 Pulses: PRESENT: normal dorsalis pedis pul, +2 pedal pulses bilateral Vascular exam: PRESENT: normal capillary refill GI/Abdominal exam: PRESENT: normal bowel sounds, soft Rectal exam: PRESENT: deferred Neurological exam: PRESENT: alert, CN II-XII grossly intact Psychiatric exam: PRESENT: appropriate affect, normal mood Skin exam: PRESENT: dry, intact, warm Results Laboratory Results: 10/10/20 05:30 10/10/20 05:30 10/10/20 10/10/20 05:30 05:30 WBC 3.8 L RBC 3.08 L Hgb 9.2 L Hct 27.9 L MCV 91 MCH 29.9 MCHC 32.9 RDW 16.6 H Plt Count 169 Seg Neutrophils % 69.0 Sodium 134.6 L Potassium 3.1 L Chloride 89 L Carbon Dioxide 46 H* Anion Gap 0 L BUN 17 Creatinine 0.53 Est GFR ( Amer) > 60 Glucose 81 Calcium 7.8 L Total Bilirubin 0.5 AST 19 Alkaline Phosphatase 60 Total Protein 4.9 L Albumin 2.2 L 10/08/20 19:43 Throat Throat Culture - Final NORMAL RUSS 10/08/20 19:43 Catheterized Urine Urine Culture - Final Escherichia Coli 10/08/20 10/08/20 10/08/20 13:01 20:37 20:55 Creatine Kinase < 20 L CK-MB (CK-2) 0.40 Troponin I < 0.012 0.020 NT-Pro-B Natriuret Pep 2120 H 10/09/20 10/09/20 10/09/20 03:08 03:08 08:53 Creatine Kinase < 20 L < 20 L CK-MB (CK-2) 0.42 Troponin I 0.019 NT-Pro-B Natriuret Pep 10/09/20 10/10/20 08:53 05:30 Creatine Kinase < 20 L CK-MB (CK-2) 0.47 Troponin I 0.014 NT-Pro-B Natriuret Pep Impressions: Chest/Abdomen CTA 10/08/20 14:06 IMPRESSION: 1. NORMAL CTA OF THE CHEST. NO PULMONARY EMBOLI. 2. CARDIOMEGALY. LARGE LEFT PLEURAL EFFUSION AND MODERATE RIGHT PLEURAL EFFUSION. BASILAR ATELECTASIS. Thoracentesis Ultrasound 10/09/20 00:00 IMPRESSION: SUCCESSFUL THORACENTESIS USING ULTRASOUND GUIDANCE. Chest X-Ray 10/09/20 16:00 IMPRESSION: No pneumothorax post left thoracentesis. Stable small left effusion basilar atelectasis. Assessment & Plan - Diagnosis (1) Acute hypoxemic respiratory failure Is this a current diagnosis for this admission?: Yes Plan: Continue oxygen supplementation via nasal cannula (2) Acute diastolic heart failure Is this a current diagnosis for this admission?: Yes Plan: Continue diuretic treatment (3) Permanent atrial fibrillation Is this a current diagnosis for this admission?: Yes (4) Morbid obesity due to excess calories Is this a current diagnosis for this admission?: Yes - Time Time Spent with patient: 25-34 minutes Level of Care: IMCU Medications reviewed and adjusted accordingly: Yes Anticipated discharge: Home Anticipated DC Timeframe: within 24 hours
--- NOTE | 2020-10-10 21:34 | RADIOLOGY REPORT (SQ) ---
EXAM DESCRIPTION: XR CHEST 1 VIEW COMPLETED DATE/TME: 10/10/2020 21:01 CLINICAL HISTORY: 85 years, Female, Possible aspiration EXAM DESCRIPTION: CHEST SINGLE VIEW CLINICAL HISTORY: Possible aspiration COMPARISON: 10/09/2020. FINDINGS: Single view of the chest is submitted. Cardiac silhouette is enlarged. There is worsening extensive consolidation with atelectasis in the left lung and a moderate left pleural effusion. No right lung consolidation is seen. There is mild pulmonary edema. The trachea is shifted to the left consistent with left lung volume loss. IMPRESSION: Worsening left lung consolidation and atelectasis. Cardiomegaly. The heart is very poorly seen. Leftward shift of mediastinal structures.
[2020-10-10] MEDS ORDERED: TEMAZEPAM 15 MG CAPSULE PO SCH (22:00)
[2020-10-10] MEDS: ATORVASTATIN CALCIUM 40 MG TABLET PO SCH (23:58)
[2020-10-10] MEDS: METOPROLOL SUCCINATE 50 MG TAB.SR.24H PO SCH (23:58)
[2020-10-11] MEDS: FUROSEMIDE INJ/PF 40 MG/4 ML SDV IV SCH (06:10)
[2020-10-11] MEDS: LEVOTHYROXINE SODIUM 0.112 MG TABLET PO SCH (06:10)
[2020-10-11 06:39] LABS: ABSOLUTE EOSINOPHILS # (AUTO) 0.1 10^3/uL (0.0-0.6); ABSOLUTE MONOCYTES (AUTO) 0.4 10^3/uL (0.1-1.4); ABSOLUTE NEUT (AUTO) 2.3 10^3/uL (1.7-8.2); BASOPHILS % (AUTO) 0.5 % (0-2); EOSINOPHILS % (AUTO) 1.6 % (0-6); HEMATOCRIT 28.6 % (36.0-47.0); HEMOGLOBIN 9.3 g/dL (12.0-15.5); MEAN CORPUSCULAR HEMOGLOBIN 29.6 pg (27.0-33.4); MEAN CORPUSCULAR HGB CONC 32.5 g/dL (32.0-36.0); MEAN CORPUSCULAR VOLUME 91 fl (80-97); MONOCYTES % (AUTO) 11.4 % (3-13); PLATELET COUNT 186 10^3/uL (150-450); RED BLOOD COUNT 3.13 10^6/uL (3.72-5.28); RED CELL DISTRIBUTION WIDTH 16.6 % (11.5-14.0); SEGMENTED NEUTROPHILS % (AUTO) 59.5 % (42-78); TOTAL CELLS COUNTED % (AUTO) 100 %; WHITE BLOOD COUNT 3.9 10^3/uL (4.0-10.5)
[2020-10-11 06:59] LABS: ALBUMIN 2.3 g/dL (3.5-5.0); ALKALINE PHOSPHATASE 60 U/L (38-126); ASPARTATE AMINO TRANSFERASE 20 U/L (14-36); BILIRUBIN,DIRECT 0.2 mg/dL (0.0-0.4); BILIRUBIN,TOTAL 0.6 mg/dL (0.2-1.3); BLOOD UREA NITROGEN 21 mg/dL (7-20); CALCIUM 7.8 mg/dL (8.4-10.2); CHLORIDE 89 mmol/L (98-107); GLUCOSE 87 mg/dL (75-110); POTASSIUM 3.3 mmol/L (3.6-5.0); TOTAL PROTEIN 5.1 g/dL (6.3-8.2)
[2020-10-11 07:01] LABS: CREATINE KINASE < 20 U/L (30-135)
[2020-10-11 07:08] LABS: ANION GAP 2 (5-19)
[2020-10-11 07:10] LABS: CARBON DIOXIDE 45 mmol/L (22-30)
[2020-10-11] MEDS: SERTRALINE HCL 50 MG TABLET PO SCH (09:40)
[2020-10-11] MEDS: LOSARTAN POTASSIUM 50 MG TABLET PO SCH (09:40)
[2020-10-11] MEDS: ARIPIPRAZOLE 2 MG TABLET PO SCH (09:40)
[2020-10-11] MEDS: APIXABAN 5 MG TABLET PO SCH (09:40)
[2020-10-11 13:27] VITALS: BP 87/50
--- NOTE | 2020-10-11 20:01 | PDOC DISCHARGE SUMMARY ---
Impression - Admit/DC Date/PCP Admission Date/Primary Care Provider: 10/08/20 17:38 NIKKI MCCULLOUGH MD Discharge Date: 10/11/20 - Discharge Diagnosis (1) Acute hypoxemic respiratory failure Is this a current diagnosis for this admission?: Yes (2) Acute diastolic heart failure Is this a current diagnosis for this admission?: Yes (3) Permanent atrial fibrillation Is this a current diagnosis for this admission?: Yes (4) Morbid obesity due to excess calories Is this a current diagnosis for this admission?: Yes (5) Hypoalbuminemia Is this a current diagnosis for this admission?: Yes - Additional Information Discharge Diet: Cardiac Discharge Activity: Activity As Tolerated, Balance Activity w/Rest, Weigh Daily Referrals: NIKKI MCUCLLOUGH MD [Primary Care Provider] - 10/21/20 2:15 pm Home Medications: Atorvastatin Calcium [Lipitor 40 mg Tablet] 40 mg PO QHS 12/03/17 Sertraline HCl [Zoloft] 50 mg PO DAILY 12/03/17 Metoprolol Succinate [Toprol Xl 50 mg Tab.sr] 200 mg PO QHS 03/22/19 Tramadol HCl [Ultram 50 mg Tablet] 50 mg PO Q6HP PRN #120 tablet 03/25/19 Alprazolam 0.5 mg PO DAILYP PRN 03/21/20 Levothyroxine Sodium [Levoxyl] 112 mcg PO Q6AM 03/21/20 Losartan Potassium 50 mg PO DAILY 03/21/20 Memantine HCl/Donepezil HCl [Namzaric 28 mg-10 mg Capsule] 1 cap PO QHS 03/21/20 Apixaban [Eliquis 5 mg Tablet] 5 mg PO Q12 08/04/20 Aripiprazole [Abilify 2 mg Tablet] 2 mg PO DAILY 08/25/20 Furosemide [Lasix 40 mg Tablet] 40 mg PO DAILY 08/25/20 History of Present Illiness History of Present Illness: GIUSEPPE RINCON is a 85 year old female She has multiple comorbid conditions including chronic respiratory failure partly due to obesity hypoventilation syndrome, chronically on noninvasive positive pressure ventilation, Trelegy she has chronic diastolic heart failure, severe pulmonary hypertension.She came to the emergency room for evaluation of progressive shortness of breath, CT angiogram of the chest was obtained, demonstrated bilateral pleural effusion left more than right, There was no pulmonary embolus as expected patient is on chronic coagulation with Eliquis because of chronic atrial fibrillation.There was no exposure to SARS-CoV-2 infection, a rapid SARS-CoV-2 test was negative. There is associated bilateral lower extremity edema Hospital Course Hospital Course: Patient was admitted for the management of acute hypoxemic respiratory failure due to bilateral pleural effusion. She underwent thoracentesis over a liter of fluid was removed from the chest. A 2D echo was done, it demonstrated preserved ejection fraction of left ventricle, the dilated chambers could not assess diastolic function because of chronic atrial fibrillation.She was treated subsequently with IV furosemide 40 mg every 12 she diuresed effectively also found to have hypoalbuminemia without proteinuria, cause is not clear, the combination of hypoalbuminemia and diastolic heart failure is responsible for the excessive volume overload.She has multiple comorbid conditions including chronic respiratory failure chronically on Trelegy, chronic atrial fibrillation on anticoagulation chronically Physical Exam Vital Signs: Temp Pulse Resp BP Pulse Ox 99.1 F 61 18 87/50 L 92 10/11/20 11:53 10/11/20 11:53 10/11/20 11:53 10/11/20 11:53 10/11/20 11:53 Intake & Output 10/10/20 10/11/20 10/12/20 06:59 06:59 06:59 Intake Total 570 826 Output Total 1050 1270 Balance -480 -444 Weight 103.7 kg 106.3 kg General appearance: PRESENT: no acute distress Eye exam: PRESENT: PERRLA Respiratory exam: PRESENT: clear to auscultation mary Cardiovascular exam: PRESENT: +S1, +S2 GI/Abdominal exam: PRESENT: soft Neurological exam: PRESENT: alert, CN II-XII grossly intact Results Laboratory Results: WBC 3.9 10^3/uL (4.0-10.5) L 10/11/20 06:20 RBC 3.13 10^6/uL (3.72-5.28) L 10/11/20 06:20 Hgb 9.3 g/dL (12.0-15.5) L 10/11/20 06:20 Hct 28.6 % (36.0-47.0) L 10/11/20 06:20 MCV 91 fl (80-97) 10/11/20 06:20 MCH 29.6 pg (27.0-33.4) 10/11/20 06:20 MCHC 32.5 g/dL (32.0-36.0) 10/11/20 06:20 RDW 16.6 % (11.5-14.0) H 10/11/20 06:20 Plt Count 186 10^3/uL (150-450) 10/11/20 06:20 Lymph % (Auto) 27.0 % (13-45) 10/11/20 06:20 [place] % (Auto) 11.4 % (3-13) 10/11/20 06:20 Eos % (Auto) 1.6 % (0-6) 10/11/20 06:20 Baso % (Auto) 0.5 % (0-2) 10/11/20 06:20 Absolute Neuts (auto) 2.3 10^3/uL (1.7-8.2) 10/11/20 06:20 Absolute Lymphs (auto) 1.0 10^3/uL (0.5-4.7) 10/11/20 06:20 Absolute Monos (auto) 0.4 10^3/uL (0.1-1.4) 10/11/20 06:20 Absolute Eos (auto) 0.1 10^3/uL (0.0-0.6) 10/11/20 06:20 Absolute Basos (auto) 0.0 10^3/uL (0.0-0.2) 10/11/20 06:20 Seg Neutrophils % 59.5 % (42-78) 10/11/20 06:20 PT 17.3 SEC (11.4-15.4) H 10/09/20 08:53 INR 1.40 10/09/20 08:53 APTT 46.8 SEC (23.5-35.8) H 10/08/20 20:37 Fibrinogen 520 mg/dL (209-497) H 10/08/20 20:37 D-Dimer 5.03 ug/mL (0.00-0.50) H 10/08/20 20:37 Carbonic Acid 1.91 mmol/L (1.05-1.35) H 10/08/20 15:20 HCO3/H2CO3 Ratio 20:1 10/08/20 15:20 ABG pH 7.41 (7.35-7.45) 10/08/20 15:20 ABG pCO2 63.4 mmHg (35-45) H 10/08/20 15:20 ABG pO2 47.9 mmHg (80-100) L 10/08/20 15:20 ABG HCO3 39.2 mmol/L (20-24) H 10/08/20 15:20 ABG Total CO2 41.1 mmol/L (21-25) H 10/08/20 15:20 ABG O2 Saturation 82.6 % (94-98) L 10/08/20 15:20 ABG Base Excess 12.5 mmol/L 10/08/20 15:20 FiO2 4L 10/08/20 15:20 Sodium 135.7 mmol/L (137-145) L 10/11/20 06:20 Potassium 3.3 mmol/L (3.6-5.0) L 10/11/20 06:20 Chloride 89 mmol/L (98-107) L 10/11/20 06:20 Carbon Dioxide 45 mmol/L (22-30) H* 10/11/20 06:20 Anion Gap 2 (5-19) L 10/11/20 06:20 BUN 21 mg/dL (7-20) H 10/11/20 06:20 Creatinine 0.61 mg/dL (0.52-1.25) 10/11/20 06:20 Est GFR ( Amer) > 60 (>60) 10/11/20 06:20 Est GFR (MDRD) Non-Af > 60 (>60) 10/11/20 06:20 Glucose 87 mg/dL (75-110) 10/11/20 06:20 Hemoglobin A1c % 4.2 % (4.7-6.0) L 10/09/20 03:08 Calcium 7.8 mg/dL (8.4-10.2) L 10/11/20 06:20 Magnesium 1.5 mg/dL (1.6-2.3) L 10/08/20 20:55 Ferritin 188.00 ng/mL (11.1-264.0) 10/08/20 20:55 Total Bilirubin 0.6 mg/dL (0.2-1.3) 10/11/20 06:20 Direct Bilirubin 0.2 mg/dL (0.0-0.4) 10/11/20 06:20 Neonat Total Bilirubin Not Reportable 10/11/20 06:20 Neonat Direct Bilirubin Not Reportable 10/11/20 06:20 Neonat Indirect Bili Not Reportable 10/11/20 06:20 AST 20 U/L (14-36) 10/11/20 06:20 ALT 6 U/L (<35) 10/11/20 06:20 Alkaline Phosphatase 60 U/L (38-126) 10/11/20 06:20 Lactate Dehydrogenase 150 U/L (120-246) 10/08/20 20:55 Creatine Kinase < 20 U/L (30-135) L 10/11/20 06:20 CK-MB (CK-2) 0.47 ng/mL (<4.55) 10/09/20 08:53 Troponin I 0.014 ng/mL 10/09/20 08:53 C-Reactive Protein 68.7 mg/L (<10.0) H 10/08/20 20:55 NT-Pro-B Natriuret Pep 2120 pg/mL (<450) H 10/08/20 13:01 Total Protein 5.1 g/dL (6.3-8.2) L 10/11/20 06:20 Albumin 2.3 g/dL (3.5-5.0) L 10/11/20 06:20 Triglycerides 91 mg/dL (<150) 10/09/20 03:08 Cholesterol 112.26 mg/dL (0-200) 10/09/20 03:08 LDL Cholesterol Direct 31 mg/dL (<100) 10/09/20 03:08 VLDL Cholesterol 18.2 mg/dL (10-31) 10/09/20 03:08 HDL Cholesterol 52 mg/dL (>40) 10/09/20 03:08 TSH 4.51 uIU/mL (0.47-4.68) 10/08/20 20:55 Free T4 1.81 ng/dL (0.78-2.19) 10/08/20 20:55 Urine Color STRAW 10/08/20 19:43 Urine Appearance CLEAR 10/08/20 19:43 Urine pH 6.0 (5.0-9.0) 10/08/20 19:43 Ur Specific [place] 1.017 10/08/20 19:43 Urine Protein NEGATIVE mg/dL (NEGATIVE) 10/08/20 19:43 Urine Glucose (UA) NEGATIVE mg/dL (NEGATIVE) 10/08/20 19:43 Urine Ketones NEGATIVE mg/dL (NEGATIVE) 10/08/20 19:43 Urine Blood NEGATIVE (NEGATIVE) 10/08/20 19:43 Urine Nitrite NEGATIVE (NEGATIVE) 10/08/20 19:43 Urine Bilirubin NEGATIVE (NEGATIVE) 10/08/20 19:43 Urine Urobilinogen NEGATIVE mg/dL (<2.0) 10/08/20 19:43 Ur Leukocyte Esterase TRACE (NEGATIVE) H 10/08/20 19:43 Urine WBC (Auto) 9 /HPF 10/08/20 19:43 Urine RBC (Auto) 1 /HPF 10/08/20 19:43 U Hyaline Cast (Auto) 1 /LPF 10/08/20 19:43 Urine Bacteria (Auto) TRACE /HPF 10/08/20 19:43 Urine Mucus (Auto) RARE /LPF 10/08/20 17:54 Urine Ascorbic Acid NEGATIVE (NEGATIVE) 10/08/20 19:43 Fluid Type PLEURAL 10/09/20 13:48 Fluid Source LUNG 10/09/20 13:48 Fluid Color RED 10/09/20 13:48 Fluid Appearance CLOUDY 10/09/20 13:48 Fluid Viscosity LIQUID 10/09/20 13:48 Fluid WBC 28 /uL 10/09/20 13:48 Fluid RBC 25420 /uL 10/09/20 13:48 Fluid Seg Neutrophils 7 % 10/09/20 13:48 Fluid Lymphocytes 86 % 10/09/20 13:48 Fluid Monocytes 7 % 10/09/20 13:48 Fluid Eosinophils 0 % 10/09/20 13:48 Fluid Basophils 0 % 10/09/20 13:48 Influenza A (Rapid) Cancelled 10/08/20 19:43 Influenza A (RT-PCR) NEGATIVE (NEGATIVE) 10/08/20 19:43 Influenza B (Rapid) Cancelled 10/08/20 19:43 Influenza B (RT-PCR) NEGATIVE (NEGATIVE) 10/08/20 19:43 RSV (RT-PCR) NEGATIVE (NEGATIVE) 10/08/20 19:43 SARS-CoV-2 Rap RNA(RT-PCR) NEGATIVE (NEGATIVE) 10/08/20 19:43 Group A Strep Rapid NEGATIVE (NEGATIVE) 10/08/20 19:43 10/08/20 10/08/20 10/09/20 13:01 20:37 03:08 CK-MB (CK-2) 0.40 0.42 Troponin I < 0.012 0.020 0.019 NT-Pro-B Natriuret Pep 2120 H 10/09/20 08:53 CK-MB (CK-2) 0.47 Troponin I 0.014 NT-Pro-B Natriuret Pep Impressions: Chest X-Ray 10/08/20 12:41 IMPRESSION: CARDIOMEGALY WITH LARGE LEFT PLEURAL EFFUSION. INDISTINCT AIRSPACE DISEASE PROBABLY DUE TO ASYMMETRIC PULMONARY EDEMA. CANNOT EXCLUDE INFECTIOUS ETIOLOGY. Chest/Abdomen CTA 10/08/20 14:06 IMPRESSION: 1. NORMAL CTA OF THE CHEST. NO PULMONARY EMBOLI. 2. CARDIOMEGALY. LARGE LEFT PLEURAL EFFUSION AND MODERATE RIGHT PLEURAL EFFUSION. BASILAR ATELECTASIS. Thoracentesis Ultrasound 10/09/20 00:00 IMPRESSION: SUCCESSFUL THORACENTESIS USING ULTRASOUND GUIDANCE. Chest X-Ray 10/09/20 14:00 IMPRESSION: No pneumothorax post left thoracentesis. Decreased size of the pleural effusion with small residual effusion and basilar atelectasis. Stable enlarged cardiac silhouette. Chest X-Ray 10/09/20 16:00 IMPRESSION: No pneumothorax post left thoracentesis. Stable small left effusion basilar atelectasis. Chest X-Ray 10/10/20 00:00 IMPRESSION: Worsening left lung consolidation and atelectasis. Cardiomegaly. The heart is very poorly seen. Leftward shift of mediastinal structures. Stroke Is this a Stroke Patient?: No Acute Heart Failure Is this a Heart Failure Patient?: No
== END 2020-10-11 13:00 | disposition home health service (06) | DRG 189 ==
LOC: ER 12:32 → EH 17:38 → 3W 10-09 00:34
PROVIDERS: ADMIT Internal Medicine; ATTEND Internal Medicine
PROC: 0W9B3ZZ Drainage of Left Pleural Cavity, Percutaneous Approach (ICD-10-PCS; principal; 2020-10-09)
PROC: B24BZZ4 Ultrasonography of Heart with Aorta, Transesophageal (ICD-10-PCS; 2020-10-09)
DX: J96.21 Acute and chronic respiratory failure with hypoxia (principal); I50.33 Acute on chronic diastolic (congestive) heart failure; I48.21 Permanent atrial fibrillation; E66.2 Morbid (severe) obesity with alveolar hypoventilation; J91.8 Pleural effusion in other conditions classified elsewhere; I11.0 Hypertensive heart disease with heart failure; Z20.828 Contact with and (suspected) exposure to other viral communicable diseases; E88.09 Other disorders of plasma-protein metabolism, not elsewhere classified; E78.5 Hyperlipidemia, unspecified; E03.9 Hypothyroidism, unspecified; K21.9 Gastro-esophageal reflux disease without esophagitis; F32.9 Major depressive disorder, single episode, unspecified; F03.90 Unspecified dementia, unspecified severity, without behavioral disturbance, psychotic disturbance, mood disturbance, and anxiety; B96.20 Unspecified Escherichia coli [E. coli] as the cause of diseases classified elsewhere; Z79.899 Other long term (current) drug therapy; Z79.01 Long term (current) use of anticoagulants; Z88.6 Allergy status to analgesic agent
CPT/HCPCS: 32555; 36415; 71045; 71275; 80053; 80061; 81001; 82042; 82150; 82550; 82553; 82728; 82803; 82945; 83036; 83615; 83735; 83880; 83986; 84155; 84157; 84439; 84443; 84484; 85025; 85379; 85384; 85610; 85730; 86140; 87070; 87075; 87086; 87088; 87101; 87186; 87205; 87252; 87880; 89050; 93005; 93010; 93306; 99285; 0241U; C9803; J1940; J3480; J3490